=== PATIENT | male | born 1940 | race African-American/Black ===

== ENCOUNTER 2017-04-29 11:53 | Inpatient (IN) | payer OTHER, MEDICARE ==
[~2017-04-29] VITALS: Ht 185.4 cm; Wt 68.9 kg
[~2017-04-29 11:53] MED LIST: CENTTAB9 PO; METF500 PO; NAME10TA PO; OMEP20TA39 PO; PHEN100 PO; ZOCO40TA PO
[2017-04-29 11:57] VITALS: BP 143/84; PULSE 114; RESP 12; O2SAT 97
--- NOTE | 2017-04-29 12:07 | PD ---
Physical Exam Time Seen by Provider: 12:05 Narrative Pt here for evaluation following a trip and fall that occurred this morning. Unwitnessed. found him on the floor lying on his back. Pt has been having more slurred speech, ataxic gait, frequent urination, and difficulty swallowing for the last two days. History of diabetes, dementia, HTN Data Data Last Documented VS Vital Signs Date Time Temp Pulse Resp B/P (MAP) Pulse Ox O2 Delivery O2 Flow Rate FiO2 04/29/17 12:56 97.8 114 18 145/85 (105) 98 Room Air Orders Orders Ct Brain W/O Iv Contrast(Rout) (04/29/17 ) Complete Blood Count With Diff (04/29/17 12:07) Basic Metabolic Panel (Bmp) (04/29/17 12:07) Electrocardiogram (04/29/17 ) Urinalysis - C+S If Indicated (04/29/17 12:07) Blood Culture (04/29/17 12:07) Chest, Pa & Lat (04/29/17 ) Troponin I (04/29/17 12:35) Ckmb (Isoenzyme) Profile (04/29/17 12:35) Lactic Acid Sepsis Protocol (04/29/17 12:47) Hepatic Functional Panel (04/29/17 12:47) Cath For Specimen (04/29/17 12:47) C Diff Toxin Pcr (04/29/17 12:47) Blood Culture (04/29/17 12:47) Sodium Chlor 0.9% 1000 Ml Inj (Ns 1000 M (04/29/17 12:51) Labs Laboratory Tests Test 04/29/17 12:48 MDM Medical Record Reviewed: Yes Supervised Visit with ELDON: No Condition: Stable Alva Connell Apr 29, 2017 12:07
--- NOTE | 2017-04-29 12:47 | RADRPT ---
EXAM DATE/TIME: 04/29/2017 12:34 [facility] COMPARISON: No previous studies available for comparison. INDICATIONS : Short of breath. MEDICAL HISTORY : son states that he sees a drSean for his heart., dementia SURGICAL HISTORY : None. ENCOUNTER: Initial ACUITY: 1 day PAIN SCORE: Non-responsive. LOCATION: Bilateral chest FINDINGS: PA and lateral views of the chest demonstrate the lungs to be symmetrically aerated without evidence of mass, infiltrate or effusion. Left hemidiaphragm is elevated. Aorta is mildly tortuous. Osseous s tructures are intact. CONCLUSION: 1. No acute findings. Elevated left hemidiaphragm. Augustine Kelly MD on April 29, 2017 at 12:44 Board Certified Radiologist. This report was verified electronically.
[2017-04-29] MEDS ORDERED: SODIUM CHLOR 0.9% 1000 ML INJ 1,000 ML IV SCH ×3 (12:51→18:00)
[2017-04-29] MEDS ORDERED: CENTCHW3 PO (12:54)
[2017-04-29] MEDS ORDERED: GLIP10TA6 PO (12:54)
[2017-04-29] MEDS ORDERED: MEMA1TAB2 PO (12:54)
[2017-04-29] MEDS ORDERED: ZOCO40TA PO (12:54)
[2017-04-29] MEDS ORDERED: DILA100C PO (12:54)
[2017-04-29] MEDS ORDERED: OXYB5TAB PO (12:54)
[2017-04-29] MEDS ORDERED: OMEP20TA PO (12:54)
[2017-04-29 12:56] VITALS: BP 145/85; PULSE 114; RESP 18; TEMP 97.8; O2SAT 98
[2017-04-29 13:11] LABS: BLOOD, URINE TRACE (NEG); GLUCOSE,URINE 1000 mg/dL (NEG); KETONE, URINE 40 mg/dL (NEG); NITRITE,URINE NEG (NEG); URINE COLOR LIGHT-YELLOW (YELLW/STRAW)
--- NOTE | 2017-04-29 13:20 | PD ---
HPI Chief Complaint: Altered Mental Status Time Seen by Provider: 12:34 Travel History International Travel<30 days: No Contact w/Intl Traveler<30days: No Traveled to known affect area: No History of Present Illness HPI 76-year-old male that presents to the ED for evaluation of altered mental status and weakness. Patient has a chronic history of dementia and per family patient has developed weakness with past couple days. He is not eating or drinking as much. She complains of swallowing issues. He has had no fevers chills or sweats but today he did have a fall that was not witnessed. Per family his been more unsteady on his feet for the past couple of days. She denies any pain. Per family she was not able to get himself back up but with assistance. No blood thinner use but he does have a history of surgery to his brain secondary to hematoma on the brain. Has no allergies to medication. Per family he's been urinating and having more bowel movements than normal. No liquidy but normal. No fevers chills or sweats. No pain. Follow was not witnessed and was the one that found him on the floor on his back. Possible head injury but no lacerations noted. Patient denies any pain and does not appear to be in any distress. Able to move all extremities with no pain. History is limited from the patient secondary to his severe dementia. PFSH Past Medical History Alzheimer's Disease: Yes Arthritis: No Asthma: No Autoimmune Disease: No Blood Disorders: No Anxiety: Yes Depression: No Heart Rhythm Problems: No Cancer: No Cardiac Catheterization: Yes Cardiovascular Problems: Yes High Cholesterol: No Chemotherapy: No Chest Pain: Yes Congestive Heart Failure: No COPD: No Cerebrovascular Accident: No Coronary Artery Disease: Yes Dementia: Yes Diabetes: Yes Patient Takes Glucophage: No Diminished Hearing: No Endocrine: Yes (DIABETES 2) Gastrointestinal Disorders: Yes (GERD) GERD: Yes Genitourinary: No Hepatitis: No Hiatal Hernia: No Hypertension: Yes Immune Disorder: No Kidney Stones: No Medical other: Yes Musculoskeletal: No Neurologic: Yes (SDH, SEIZURES, ENCEPAHLOPATHY) Psychiatric: Yes Reproductive: No Respiratory: No Immunizations Current: Yes Migraines: No Myocardial Infarction: No Radiation Therapy: No Renal Failure: No Seizures: No Sickle Cell Disease: No Sleep Apnea: No Thyroid Disease: No Ulcer: No Tetanus Vaccination: < 5 Years Influenza Vaccination: Yes PNEUMOCCOCAL Vaccine (Year): 2 Past Surgical History Abdominal Surgery: No AICD: No Arteriovenous Shunt: No Cardiac Surgery: No Ear Surgery: No Endocrine Surgery: No Eye Surgery: No Genitourinary Surgery: No Gynecologic Surgery: No Insulin Pump: No Joint Replacement: No Neurologic Surgery: Yes (BIALATERAL CRANIOTOMY) Oral Surgery: No Pacemaker: No Thoracic Surgery: No Other Surgery: Yes Family History Family Breast Cancer: No Family Hypercholesterolemia: Yes Social History Alcohol Use: No Tobacco Use: No Substance Use: No Allergies-Medications (Allergen,Severity, Reaction): Coded Allergies: No Known Allergies (Verified , 09/23/15) Reported Meds & Prescriptions Reported Meds & Active Scripts Active Reported Centrum Silver (Multiple Vitamins W/ Minerals) 400 Mcg-250 Mcg Chw 1 Tab PO DAILY Zocor (Simvastatin) 40 Mg Tab 40 Mg PO HS Memantine 10 Mg Tab 10 Mg PO BID Omeprazole 20 Mg Tab 20 Mg PO DAILY Dilantin (Phenytoin Extended) 100 Mg Cap 100 Mg PO BID Review of Systems ROS Limitations: Poor Historian Except as stated in HPI: all other systems reviewed are Neg Physical Exam Exam Limitations: Poor Historian Narrative GENERAL: SKIN: Warm and dry. HEAD: Atraumatic. Normocephalic. EYES: Pupils equal and round. No scleral icterus. No injection or drainage. ENT: No nasal bleeding or discharge. Mucous membranes pink and moist. Tongue is midline. No uvula deviation. NECK: Trachea midline. No JVD. CARDIOVASCULAR: Regular rate and rhythm. No murmurs, S3, S4. RESPIRATORY: No accessory muscle use. Clear to auscultation. Breath sounds equal bilaterally. GASTROINTESTINAL: Abdomen soft, non-tender, nondistended. Hepatic and splenic margins not palpable. MUSCULOSKELETAL: Extremities without clubbing, cyanosis, or edema. No obvious deformities. Full range of motion of the upper and lower extremities bilaterally. 2+ pulses bilaterally. No lumbar, thoracic, cervical spine tenderness to palpation. NEUROLOGICAL: Awake and alert. No obvious cranial nerve deficits. Motor grossly within normal limits. Five out of 5 muscle strength in the arms and legs. Normal speech. PSYCHIATRIC: Demented mood and affect; insight and judgment minimal. Data Data Last Documented VS Vital Signs Date Time Temp Pulse Resp B/P (MAP) Pulse Ox O2 Delivery O2 Flow Rate FiO2 04/29/17 14:15 97.8 98 16 145/77 (99) 99 Room Air Orders Orders Ct Brain W/O Iv Contrast(Rout) (04/29/17 ) Complete Blood Count With Diff (04/29/17 12:07) Basic Metabolic Panel (Bmp) (04/29/17 12:07) Electrocardiogram (04/29/17 ) Urinalysis - C+S If Indicated (04/29/17 12:07) Blood Culture (04/29/17 12:07) Chest, Pa & Lat (04/29/17 ) Lactic Acid Sepsis Protocol (04/29/17 12:47) Hepatic Functional Panel (04/29/17 12:47) Cath For Specimen (04/29/17 12:47) C Diff Toxin Pcr (04/29/17 12:47) Blood Culture (04/29/17 12:47) Sodium Chlor 0.9% 1000 Ml Inj (Ns 1000 M (04/29/17 12:51) Ct Cerv Spine W/O Contrast (04/29/17 ) Ckmb (Isoenzyme) Profile (04/29/17 13:01) Troponin I (04/29/17 13:01) CKMB (04/29/17 13:01) CKMB% (04/29/17 13:01) Sodium Chlor 0.9% 1000 Ml Inj (Ns 1000 M (04/29/17 13:58) Insulin Human Regular Inj (Novolin R Inj (04/29/17 14:30) Admit To Inpatient (04/29/17 ) Vital Signs (Adult) ATUL.Q4H (04/29/17 14:42) Activity Bed Rest (04/29/17 14:42) Diet Npo (04/29/17 Dinner) Inpatient Certification (04/29/17 ) Admit Order (Ed Use Only) (04/29/17 14:44) Labs Laboratory Tests Test 04/29/17 12:48 04/29/17 13:00 04/29/17 13:01 Urine Color LIGHT-YELLOW Urine Turbidity CLEAR Urine pH 5.0 Urine Specific Hatch 1.030 Urine Protein NEG mg/dL Urine Glucose (UA) 1000 mg/dL Urine Ketones 40 mg/dL Urine Occult Blood TRACE Urine Nitrite NEG Urine Bilirubin NEG Urine Urobilinogen LESS THAN 2.0 MG/DL Urine Leukocyte Esterase NEG Urine RBC 1 /hpf Urine WBC 1 /hpf Microscopic Urinalysis Comment CULT NOT INDICATED Lactic Acid Level 2.7 mmol/L White Blood Count 13.7 TH/MM3 Red Blood Count 5.22 MIL/MM3 Hemoglobin 15.6 GM/DL Hematocrit 47.9 % Mean Corpuscular Volume 91.8 FL Mean Corpuscular Hemoglobin 29.9 PG Mean Corpuscular Hemoglobin Concent 32.6 % Red Cell Distribution Width 14.8 % Platelet Count 307 TH/MM3 Mean Platelet Volume 8.4 FL Neutrophils (%) (Auto) 78.7 % Lymphocytes (%) (Auto) 12.4 % Monocytes (%) (Auto) 8.4 % Eosinophils (%) (Auto) 0.2 % Basophils (%) (Auto) 0.3 % Neutrophils # (Auto) 10.8 TH/MM3 Lymphocytes # (Auto) 1.7 TH/MM3 Monocytes # (Auto) 1.2 TH/MM3 Eosinophils # (Auto) 0.0 TH/MM3 Basophils # (Auto) 0.0 TH/MM3 CBC Comment DIFF FINAL Differential Comment Blood Urea Nitrogen 22 MG/DL Creatinine 1.80 MG/DL Random Glucose 667 MG/DL Calcium Level 10.0 MG/DL Sodium Level 136 MEQ/L Potassium Level 5.8 MEQ/L Chloride Level 97 MEQ/L Carbon Dioxide Level 28.9 MEQ/L Anion Gap 10 MEQ/L Estimat Glomerular Filtration Rate 45 ML/MIN Total Bilirubin 0.4 MG/DL Direct Bilirubin 0.1 MG/DL Indirect Bilirubin 0.3 MG/DL Aspartate Amino Transf (AST/SGOT) 18 U/L Alanine Aminotransferase (ALT/SGPT) 23 U/L Alkaline Phosphatase 187 U/L Total Creatine Kinase 219 U/L Creatine Kinase MB 0.6 NG/ML Troponin I LESS THAN 0.02 NG/ML Total Protein 9.5 GM/DL Albumin 4.1 GM/DL MDM Medical Decision Making Medical Screen Exam Complete: Yes Emergency Medical Condition: Yes Medical Record Reviewed: Yes Interpretation(s) Last Impressions Chest X-Ray 04/29/17 0000 Signed Impressions: Service Date/Time: Saturday, April 29, 2017 12:34 - CONCLUSION: 1. No acute findings. Elevated left hemidiaphragm. Augustine Kelly MD CT head shows subtle abnormality per radiologist he does not believe is new blood products but cannot state otherwise CBC & BMP Diagram 10/2/17 13:01 Calcium Level 10.0 troponin and CKMB negative EKG shows sinus tachycardia with no sign of ischemia or arrhythmia. UA negative other than for glucose CT cervical spine negative Differential Diagnosis Kidney injury versus dehydration versus altered mental status versus UTI versus GI bleed versus anemia versus head injury versus confusion versus worsening dementia Narrative Course 76-year-old male that presents to the ED for evaluation of worsening confusion with head injury. Patient was properly examined and was found to have signs and symptoms consistent with appears to be altered mental status and dementia. Labs and imaging were ordered. Patient was given a bolus of fluid. Labs and imaging showed elevated blood sugar, lactic acidosis and under markedly to the CT of the head. Case discussed with my attending who recommends consult the neurosurgeon. Spoke with Dr. Mendoza for neurosurgery who states that this is improved from prior and he does not believe anything needs to be done for this. Case discussed with Dr. Kirk who agrees to admission. Diagnosis Primary Impression: Altered mental status Qualified Codes: R41.82 - Altered mental status, unspecified Additional Impressions: Head injury Qualified Codes: S09.90XA - Unspecified injury of head, initial encounter Hyperglycemia Elevated lactic acid level Admitting Information Admitting Physician Requests: Observation Condition: Stable Salvador Spann Apr 29, 2017 13:20
[2017-04-29 13:21] LABS: COMMENT (UR) CULT NOT INDICATED; CULTURE IF INDICATED CULT NOT INDICATED
[2017-04-29 13:25] LABS: AUTOMATED NEUTROPHIL # 10.8 TH/MM3 (1.8-7.7); BASOPHIL % 0.3 % (0.0-2.0); EOSINOPHIL % 0.2 % (0.0-4.0); HEMATOCRIT 47.9 % (39.0-51.0); HEMO FLAGS DIFF FINAL; LYMPH % 12.4 % (9.0-44.0); LYMPHOCYTE # 1.7 TH/MM3 (1.0-4.8); MEAN CELL VOLUME 91.8 FL (80.0-100.0); MEAN CORPUSCULAR HEMOGLOBIN 29.9 PG (27.0-34.0); MEAN CORPUSCULAR HGB CONC 32.6 % (32.0-36.0); MONO % 8.4 % (0.0-8.0); NEUT % 78.7 % (16.0-70.0); PLATELET COUNT 307 TH/MM3 (150-450); RED BLOOD COUNT 5.22 MIL/MM3 (4.50-5.90); RED CELL DISTRIBUTION WIDTH 14.8 % (11.6-17.2); WHITE BLOOD COUNT 13.7 TH/MM3 (4.0-11.0)
[2017-04-29 13:53] LABS: ALKALINE PHOSPHATASE 187 U/L (45-117); ALT (GPT) 23 U/L (12-78); AST (GOT) 18 U/L (15-37); INDIRECT BILIRUBIN 0.3 MG/DL (0.0-0.8); TOTAL BILIRUBIN ADULT 0.4 MG/DL (0.2-1.0)
[2017-04-29 13:55] LABS: CREATINE KINASE 219 U/L (39-308)
[2017-04-29 13:57] LABS: BICARBONATE 28.9 MEQ/L (21.0-32.0); POTASSIUM 5.8 MEQ/L (3.5-5.1)
--- NOTE | 2017-04-29 14:00 | RADRPT ---
EXAM DATE/TIME: 04/29/2017 13:36 [facility] COMPARISON: CT BRAIN W/O CONTRAST, December 06, 2014, 13:42. INDICATIONS : Altered mental status; fall. RADIATION DOSE: 48.48 CTDIvol (mGy) MEDICAL HISTORY : Cardiovascular disease. Hypertension. Dementia. SURGICAL HISTORY : Craniotomy. ENCOUNTER: Initial ACUITY: 1 day PAIN SCALE: Non-responsive LOCATION: cranial TECHNIQUE: Multiple contiguous axial images were obtained of the head. Using automated exposure control and adj ustment of the mA and/or kV according to patient size, radiation dose was kept as low as reasonably a chievable to obtain optimal diagnostic quality images. DICOM format image data is available electro nically for review and comparison. FINDINGS: CEREBRUM: Redemonstration of small bilateral hygromas with slight increased linear density noted in the right f rontal collection near the vertex. The ventricles are normal for age. No evidence of midline shift, mass lesion, hemorrhage or acute infarction. No new intra-or extra-axial fluid collections are seen. POSTERIOR FOSSA: The cerebellum and brainstem are intact. The 4th ventricle is midline. The cerebellopontine angle i s unremarkable. EXTRACRANIAL: The visualized portion of the orbits is intact. SKULL: Postsurgical changes of bilateral frontoparietal craniotomies. The calvaria is intact. No evidence o f skull fracture. CONCLUSION: 1. Small stable bilateral hygromas with subtle increased linear density noted in the right frontal co llection near the vertex. Although unlikely given configuration and appearance, a small focal acute r egion of blood products cannot be entirely excluded given lack of more recent prior exams. 2. Otherwise, no acute intracranial abnormality. Kenny Walker MD on April 29, 2017 at 13:54 Board Certified Radiologist. This report was verified electronically.
--- NOTE | 2017-04-29 14:00 | RADRPT ---
EXAM DATE/TIME: 04/29/2017 13:36 [facility] COMPARISON: No previous studies available for comparison. INDICATIONS : Altered mental status; fall. RADIATION DOSE: 38.99 CTDIvol (mGy) MEDICAL HISTORY : Cardiovascular disease. Dementia. Seizures. SURGICAL HISTORY : Craniotomy. ENCOUNTER: Initial ACUITY: 1 day PAIN SCALE: Non-responsive LOCATION: cranial TECHNIQUE: Volumetric scanning of the cervical spine was performed. Multiplanar reconstructions in the sagittal, coronal and oblique axial planes were performed. Using automated exposure control and adjustment o f the mA and/or kV according to patient size, radiation dose was kept as low as reasonably achievable to obtain optimal diagnostic quality images. DICOM format image data is available electronically f or review and comparison. FINDINGS: The alignment is normal. There is no evidence of cervical spine fracture. No bony canal or foraminal stenosis is identified. There is no evidence of paraspinal hematoma. CONCLUSION: No acute bony injury in the cervical spine. Baldev Urbano MD on April 29, 2017 at 13:55 Board Certified Radiologist. This report was verified electronically.
[2017-04-29 14:10] LABS: CKMB 0.6 NG/ML (0.5-3.6)
[2017-04-29 14:15] VITALS: BP 145/77; PULSE 98; RESP 16; TEMP 97.8; O2SAT 99
[2017-04-29] MEDS ORDERED: INSULIN HUMAN REGULAR 1,000 UNITS/10 ML VIAL SQ ONE (14:30)
[2017-04-29 15:19] LABS: LACTIC ACID GHOST NOT REPORTABLE
[2017-04-29 15:43] VITALS: BP 150/88; PULSE 92; RESP 17; TEMP 97.9; O2SAT 98
[2017-04-29] MEDS: ASPIRIN 81 MG CHEW TAB PO SCH (17:15)
[2017-04-29] MEDS ORDERED: NON-FORMULARY DRUG (Omeprazole 20 MG) PO SCH (17:30)
[2017-04-29 17:47] VITALS: BP 120/71; PULSE 92; RESP 17; TEMP 98; O2SAT 98
[2017-04-29] MEDS: ENOXAPARIN SODIUM 30 MG/0.3 ML SYRINGE SQ SCH (17:49)
--- NOTE | 2017-04-29 18:51 | HHI.HP ---
[facility] Manjit Jiménez MD Admission Diagnosis altered mental status, weakness, head injury Diagnoses: Chief Complaint: per family, getting weaker Travel History International Travel<30 Days: No Contact w/Intl Traveler <30 Da: No Traveled to Known Affected Are: No History of Present Illness 76-year-old black male being admitted for possible CVA. Patient was in his usual state of health until about 3 days ago when his family began noticing slurred speech. They state that his speech was slurred but still somewhat understandable and that the patient was speaking at his baseline cognitive level (has dementia). This was associated with new onset dysphagia with meals notably the patient coughs with taking even sepsis of water. Subsequently he has decreased by mouth intake. Associated with decreased generalized activity, generalized weakness, increased urinary urgency and subsequent incontinence. They deny any fevers, chills, nausea, vomiting or significant change in bowel movements. No facial droop or focal weakness has been observed with the extremities. No unilaterally unsteady gait, just unsteady overall. They state that he has no change in his baseline confusion. Family states that he still has been consistently administered his home medications with no skipping. In the ER the patient was found to be hyperglycemic in the 600s, hyperkalemic at 5.8 w/ a normal anion gap at 10, with an acute kidney injury as well. He received IV boluses as well as insulin. Review of Systems Except as stated in HPI: all other systems reviewed are Neg Past Family Social History Past Medical History HYL, DM, dementia Past Surgical History daytno hole evacuation for subdural hematoma 2/2 traumatic injury Allergies: Coded Allergies: No Known Allergies (Verified , 09/23/15) Family History Hypertension Social History Lives with his , is demented, son works in the hospital cardiac catheterization lab. They collectively help administer his medications to him on a daily basis. Physical Exam Vital Signs Vital Signs Date Time Temp Pulse Resp B/P (MAP) Pulse Ox O2 Delivery O2 Flow Rate FiO2 04/29/17 18:00 04/29/17 17:47 98.0 92 17 120/71 (87) 98 Room Air 04/29/17 15:43 97.9 92 17 150/88 (108) 98 Room Air 04/29/17 14:15 97.8 98 16 145/77 (99) 99 Room Air 04/29/17 13:00 102 17 98 Room Air 04/29/17 12:56 97.8 114 18 145/85 (105) 98 Room Air 04/29/17 11:57 114 12 143/84 (103) 97 Physical Exam GENERAL: This is a well-nourished, well-developed patient, in no apparent distress. SKIN: No rashes, ecchymoses or lesions. Cool and dry. HEAD: Atraumatic. Normocephalic. No temporal or scalp tenderness. EYES: Pupils equal round and reactive. Extraocular motions intact. No scleral icterus. No injection or drainage. ENT: Nose without bleeding, purulent drainage or septal hematoma. Throat without erythema, tonsillar hypertrophy or exudate. Unable to visualize uvula due to Mallampati class IV NECK: Trachea midline. No JVD or lymphadenopathy. Supple, nontender, no meningeal signs. CARDIOVASCULAR: Regular rate and rhythm without murmurs, gallops, or rubs. RESPIRATORY: Clear to auscultation. Breath sounds equal bilaterally. No wheezes , rales, or rhonchi. GASTROINTESTINAL: Abdomen soft, non-tender, nondistended. MUSCULOSKELETAL: Extremities without clubbing, cyanosis, or edema. No joint tenderness, effusion, or edema noted. No calf tenderness. Negative Homans sign bilaterally. NEUROLOGICAL: Awake and alert. Cranial nerves II through XII intact. Motor and sensory grossly within normal limits. Five out of 5 muscle strength in all muscle groups. Normal speech. Negative Romberg's, patellar reflexes diminished bilaterally. Intact finger to nose to finger bilaterally. Laboratory Laboratory Tests Test 04/29/17 12:48 04/29/17 13:00 04/29/17 13:01 04/29/17 16:30 Urine Color LIGHT-YELLOW Urine Turbidity CLEAR Urine pH 5.0 Urine Specific [place] 1.030 Urine Protein NEG Urine Glucose (UA) 1000 Urine Ketones 40 Urine Occult Blood TRACE Urine Nitrite NEG Urine Bilirubin NEG Urine Urobilinogen LESS THAN 2.0 Urine Leukocyte Esterase NEG Urine RBC 1 Urine WBC 1 Microscopic Urinalysis Comment CULT NOT INDICATED Lactic Acid Level 2.7 2.2 White Blood Count 13.7 Red Blood Count 5.22 Hemoglobin 15.6 Hematocrit 47.9 Mean Corpuscular Volume 91.8 Mean Corpuscular Hemoglobin 29.9 Mean Corpuscular Hemoglobin Concent 32.6 Red Cell Distribution Width 14.8 Platelet Count 307 Mean Platelet Volume 8.4 Neutrophils (%) (Auto) 78.7 Lymphocytes (%) (Auto) 12.4 Monocytes (%) (Auto) 8.4 Eosinophils (%) (Auto) 0.2 Basophils (%) (Auto) 0.3 Neutrophils # (Auto) 10.8 Lymphocytes # (Auto) 1.7 Monocytes # (Auto) 1.2 Eosinophils # (Auto) 0.0 Basophils # (Auto) 0.0 CBC Comment DIFF FINAL Differential Comment Blood Urea Nitrogen 22 Creatinine 1.80 Random Glucose 667 Calcium Level 10.0 Sodium Level 136 Potassium Level 5.8 Chloride Level 97 Carbon Dioxide Level 28.9 Anion Gap 10 Estimat Glomerular Filtration Rate 45 Total Bilirubin 0.4 Direct Bilirubin 0.1 Indirect Bilirubin 0.3 Aspartate Amino Transf (AST/SGOT) 18 Alanine Aminotransferase (ALT/SGPT) 23 Alkaline Phosphatase 187 Total Creatine Kinase 219 Creatine Kinase MB 0.6 Troponin I LESS THAN 0.02 Total Protein 9.5 Albumin 4.1 Date/Time Source Procedure Growth Status 04/29/17 13:01 Blood Peripheral Aerobic Blood Culture Pending Received 04/29/17 13:01 Blood Peripheral Anaerobic Blood Culture Pending Received Result Diagram: 04/29/17 1301 04/29/17 1301 Imaging Last Impressions Head CT 04/29/17 0000 Signed Impressions: Service Date/Time: Saturday, April 29, 2017 13:36 - CONCLUSION: 1. Small stable bilateral hygromas with subtle increased linear density noted in the right frontal collection near the vertex. Although unlikely given configuration and appearance, a small focal acute region of blood products cannot be entirely excluded given lack of more recent prior exams. 2. Otherwise, no acute intracranial abnormality. Kenny Walker MD Chest X-Ray 04/29/17 0000 Signed Impressions: Service Date/Time: Saturday, April 29, 2017 12:34 - CONCLUSION: 1. No acute findings. Elevated left hemidiaphragm. Augustine Kelly MD Cervical Spine CT 04/29/17 0000 Signed Impressions: Service Date/Time: Saturday, April 29, 2017 13:36 - CONCLUSION: No acute bony injury in the cervical spine. MD Rika Maldonado VTE Risk Assessment Caprini VTE Risk Assessment: Mod/High Risk (score >= 2) Caprini Risk Assessment Model Point Value = 1 Point Value = 2 Point Value = 3 Point Value = 5 Age 41-60 Minor surgery BMI > 25 kg/m2 Swollen legs Varicose veins or History of unexplained or recurrent spontaneous Oral contraceptives or hormone replacement Sepsis (< 1 month) Serious lung disease, including pneumonia (< 1 month) Abnormal pulmonary function Acute myocardial infarction Congestive heart failure (< 1 month) History of inflammatory bowel disease Medical patient at bed rest Age 61-74 Arthroscopic surgery Major open surgery (> 45 min) Laparoscopic surgery (> 45 min) Malignancy Confined to bed (> 72 hours) Immobilizing plaster cast Central venous access Age >= 75 History of VTE Family history of VTE Factor V Leiden Prothrombin [id number] Lupus anticoagulant Anticardiolipin antibodies Elevated serum homocysteine Heparin-induced thrombocytopenia Other congenital or acquired thrombophilia Stroke (< 1 month) Elective arthroplasty Hip, pelvis, or leg fracture Acute spinal cord injury (< 1 month) Prophylaxis Regimen Total Risk Factor Score Risk Level Prophylaxis Regimen 0-1 Low Early ambulation 2 Moderate Order ONE of the following: *Sequential Compression Device (SCD) *Heparin 5000 units SQ BID 3-4 Higher Order ONE of the following medications: *Heparin 5000 units SQ TID *Enoxaparin/Lovenox 40 mg SQ daily (WT < 150 kg, CrCl > 30 mL/min) *Enoxaparin/Lovenox 30 mg SQ daily (WT < 150 kg, CrCl > 10-29 mL/min) *Enoxaparin/Lovenox 30 mg SQ BID (WT < 150 kg, CrCl > 30 mL/min) AND/OR *Sequential Compression Device (SCD) 5 or more Highest Order ONE of the following medications: *Heparin 5000 units SQ TID (Preferred with Epidurals) *Enoxaparin/Lovenox 40 mg SQ daily (WT < 150 kg, CrCl > 30 mL/min) *Enoxaparin/Lovenox 30 mg SQ daily (WT < 150 kg, CrCl > 10-29 mL/min) *Enoxaparin/Lovenox 30 mg SQ BID (WT < 150 kg, CrCl > 30 mL/min) AND *Sequential Compression Device (SCD) Assessment and Plan Assessment and Plan 76-year-old lack male being admitted for dysphagia and possible CVA. The patient seems to have partially responded at least clinically with just the ER treatment in regards to his generalized weakness since he now has 5 out of 5 strength all throughout grossly. Dysphagia - Nothing by mouth until evaluated by speech - We'll workup for stroke starting with MRI head Possible CVA - Fall precautions - PT, OT, ST - MRI head, Echocardiogram and carotid ultrasound, I independently reviewed EKG which shows sinus rhythm to sinus tachycardia - ASA, lipitor - permissive HTN Chronic hygromas - D/w ER staff who contacted NSG, no further workup needed nor intervention anticipated Dehydration - Likely secondary to dysphagia - IV fluids Acute kidney injury - Secondary to dehydration, treated as above, trend BMP in a.m. Hyperkalemia - Likely secondary to dehydration and acute kidney injury combined, recheck in a.m., treated with IV fluids - possibly uncontrolled DM, A1c ordered, SS w/ accuchecks leukocytosis - likely stress induced, repeat in AM - BC's ordered from ER, anticipate neg since lack of fever per hx, f/u results Dementia - continue memantine hyperglycemia - suspect uncontrolled DM, ordering SS w/ accuchecks along w/ a1C lactic acidosis - repeat improving, likely 2/2 dehydration, no signs of infection, monitor clinically, no increased anion gap contributing Lovenox for DVT prophylaxis. Code Status full code Physician Certification 2 Midnight Certification Type: Admission for Inpatient Services Order for Inpatient Services The services are ordered in accordance with Medicare regulations or non- Medicare payer requirements, as applicable. In the case of services not specified as inpatient-only, they are appropriately provided as inpatient services in accordance with the 2-midnight benchmark. Estimated LOS (days): 2 2 days is the estimated time the patient will need to remain in the hospital, assuming treatment plan goals are met and no additional complications. Post-Hospital Plan: Not yet determined Dieter Mcintosh MD Apr 29, 2017 18:51
[2017-04-29] MEDS ORDERED: GLUCAGON 1 MG/ML VIAL OTHER PRN (19:30)
[2017-04-29] MEDS ORDERED: DEXTROSE 50% IN WATER 50 ML VIAL(D50) IV PUSH PRN (19:30)
[2017-04-29 19:57] LABS: HDL CHOLESTEROL 51.4 MG/DL (40.0-60.0); LDL CHOLESTEROL 72 MG/DL (0-99)
[2017-04-29] MEDS: PHENYTOIN INJ 100 MG/2 ML VIAL IV SCH (20:18)
[2017-04-29] MEDS: MEMANTINE HCL 10 MG TAB PO SCH (20:18)
[2017-04-29] MEDS: PHENYTOIN SODIUM 100 MG CAP PO SCH (20:18)
[2017-04-29] MEDS ORDERED: ENALAPRILAT 1.25 MG/ML VIAL IV PUSH PRN (20:45)
[2017-04-29] MEDS ORDERED: INSULIN NovoLIN REGULAR SUPPLEMENTAL SCALE SQ SCH (21:00)
[2017-04-29] MEDS ORDERED: NON-FORMULARY DRUG (Oxybutynin ER 24 HR 5 MG) PO SCH (21:00)
[2017-04-29] MEDS: SODIUM CHLOR 0.9% 1000 ML INJ 1,000 ML IV SCH (21:55)
[2017-04-29 22:00] VITALS: BP 130/74; PULSE 85; RESP 20; TEMP 97.7; O2SAT 96
[2017-04-29 22:24] LABS: HEMOGLOBIN A1a 1.3 %; HEMOGLOBIN A1b 3.8 %; HEMOGLOBIN Ao 70.7 %; HEMOGLOBIN P3 7.3 %
--- NOTE | 2017-04-29 22:38 | RADRPT ---
EXAM DATE/TIME: 04/29/2017 21:37 [facility] COMPARISON: CT BRAIN W/O CONTRAST, December 06, 2014, 13:42. CT BRAIN W/O CONTRAST, April 29, 2017, 13:36. INDICATIONS : CVA. MEDICAL HISTORY : Alzheimer's. Diabetes mellitus type 2. Gastroesophageal reflux disease. Cardiovascular disease. Seizu res. SURGICAL HISTORY : Craniotomy. ENCOUNTER: Subsequent ACUITY: 1 day PAIN SCORE: 3/10 LOCATION: TECHNIQUE: Multiplanar, multisequence MRI of the brain was performed without contrast. FINDINGS: CEREBRUM: The ventricles are widened. There is mild widening of the sulci. There are bilateral anterior frontal region extra-axial fluid collections being more prominent right than the left. The right fluid colle ction measures 0.9 cm in AP dimension. The left anterior fluid collection measures 0.5 cm. These have been present on prior CT examinations. There are focal areas of signal abnormality on the T2 and fla ir images in the medial left frontal lobe likely related to old contusions or other prior insult. No evidence of midline shift, mass lesion, hemorrhage or acute infarction. The pituitary gland and sup rasellar cistern are normal in configuration. WHITE MATTER: No significant signal abnormalities are seen in the white matter. POSTERIOR FOSSA: The cerebellum and brainstem are intact. The 4th ventricle is midline. The cerebellopontine angle is unremarkable. The cerebellar tonsils are normal in position. DIFFUSION IMAGING: No focal areas of restricted diffusion are seen. No evidence of acute infarction. EXTRACRANIAL: The visualized portions of the orbits and paranasal sinuses are unremarkable. There appears to be pos toperative change in the lateral frontal bones bilaterally and in the frontal and parietal scalp chely ons. CONCLUSION: 1. Mild lateral frontal extra-axial fluid collections being greater on the right than the left likely representing hygromas or old hematomas. These been present since at least 2014. 2. Mild ventricular and sulcal dilatation likely related to some atrophy. 3. Suspected old insults at the medial left frontal lobe. Baldev Mckeon MD on April 29, 2017 at 22:29 Board Certified Radiologist. This report was verified electronically.
[2017-04-30] VITALS (9 sets, daily range): BP systolic 131–151; BP diastolic 70–80; PULSE 82–101; RESP 18–20; TEMP 97.7–98.5; O2SAT 95–100
[2017-04-30] MEDS: SODIUM CHLOR 0.9% 1000 ML INJ 1,000 ML IV SCH ×3 (04:18→18:00)
[2017-04-30 07:53] LABS: AUTOMATED NEUTROPHIL # 8.6 TH/MM3 (1.8-7.7); BASOPHIL % 0.4 % (0.0-2.0); EOSINOPHIL # 0.1 TH/MM3 (0-0.4); EOSINOPHIL % 1.3 % (0.0-4.0); HEMO FLAGS DIFF FINAL; LYMPHOCYTE # 1.7 TH/MM3 (1.0-4.8); MEAN CELL VOLUME 90.3 FL (80.0-100.0); MEAN CORPUSCULAR HEMOGLOBIN 29.8 PG (27.0-34.0); MONO % 6.7 % (0.0-8.0); NEUT % 76.6 % (16.0-70.0); PLATELET COUNT 239 TH/MM3 (150-450); RED BLOOD COUNT 4.65 MIL/MM3 (4.50-5.90); RED CELL DISTRIBUTION WIDTH 14.3 % (11.6-17.2); WHITE BLOOD COUNT 11.3 TH/MM3 (4.0-11.0)
[2017-04-30 08:24] LABS: BICARBONATE 23.9 MEQ/L (21.0-32.0)
[2017-04-30 08:30] LABS: HDL CHOLESTEROL 43.2 MG/DL (40.0-60.0)
--- NOTE | 2017-04-30 08:33 | EKG ---
Date Performed: 04/29/2017 Time Performed: 12:42:54 PTAGE: 76 years EKG: SINUS TACHYCARDIA WITH SHORT FL INTERVAL MARKED LEFT AXIS DEVIATION INCOMPLETE RIGHT BUNDLE BRANCH BLOCK ABNORMAL ECG PREVIOUS TRACING : 11/08/2014 10.13 When compared to prior EKG, patient is now tachycardic. DOCTOR: Hemalatha Marie Interpretating Date/Time 04/30/2017 08:32:58
[2017-04-30] MEDS ORDERED: TOLTERODINE TARTRATE 4 MG CAP LA PO SCH (09:00)
[2017-04-30] MEDS ORDERED: MULTIPLE VITAMINS PO SCH (09:00)
[2017-04-30] MEDS ORDERED: MINERALS PO SCH (09:00)
[2017-04-30] MEDS ORDERED: INSULIN DETEMIR 100 UNITS/ML VIAL SQ SCH (09:15)
[2017-04-30] MEDS: PHENYTOIN SODIUM 100 MG CAP PO SCH ×2 (09:22→20:27)
[2017-04-30] MEDS: ASPIRIN 81 MG CHEW TAB PO SCH (09:24)
[2017-04-30] MEDS: MEMANTINE HCL 10 MG TAB PO SCH ×2 (09:25→20:26)
[2017-04-30] MEDS: PANTOPRAZOLE SOD 20 MG DELAYED RELEASE TAB PO SCH (09:26)
[2017-04-30] MEDS: MULTIVITAMINS/MINERALS THERAPEUTIC TAB PO SCH (09:27)
[2017-04-30] MEDS: PHENYTOIN INJ 100 MG/2 ML VIAL IV SCH ×2 (09:28→20:27)
[2017-04-30] MEDS: INSULIN NovoLIN REGULAR SUPPLEMENTAL SCALE SQ SCH ×4 (09:39→20:27)
--- NOTE | 2017-04-30 11:21 | RADRPT ---
EXAM DATE/TIME: 04/30/2017 10:45 [facility] COMPARISON: No previous studies available for comparison. INDICATIONS : Transient ischemic attack. MEDICAL HISTORY : Gastroesophageal reflux disease. Seizures. Encephalopathy. Dementia. Alzheimer's disease. coronar y artery disease. diabetes. c-diff. SURGICAL HISTORY : Craniotomy. Cardiac catheterization. ENCOUNTER: Initial ACUITY: 1 day PAIN SCORE: 0/10 LOCATION: Bilateral neck PEAK SYSTOLIC VELOCITIES (cm/sec): ICA/CCA RATIO: Right: 0.7 Left: 0.4 ICA: Right: 77 Left: 60 CCA: Right: 103 Left: 135 ECA: Right: 79 Left: 90 VERTEBRAL: Right: 66 antegrade Left: 107 antegrade Elevated flow velocities and ICA/CCA ratios have been found to correlate with increased degrees of vessel stenosis, calculated as percentage of diameter relative to a normal segment of distal ICA/CCA FINDINGS: RIGHT CAROTID: No significant stenosis is visualized. The waveforms are within normal limits. LEFT CAROTID: No significant stenosis is visualized. The waveforms are within normal limits. VERTEBRAL ARTERIES: Antegrade flow is seen in both vertebral arteries. MISCELLANEOUS: None. CONCLUSION: 1. No evidence of hemodynamically significant lesion. Brody Hernandez MD on April 30, 2017 at 11:19 Board Certified Radiologist. This report was verified electronically.
[2017-04-30] MEDS: ENOXAPARIN SODIUM 30 MG/0.3 ML SYRINGE SQ SCH (17:30)
--- NOTE | 2017-04-30 17:54 | HHI.PR ---
Subjective Remarks Nursing reports no acute setbacks since last night. Nursing does relate that speech therapy does have indeed a modified diet based upon their assessment, nectar thickened liquids. Family says that patient looks more energetic today than yesterday. MRI this morning shows no stroke acutely Objective Vital Signs Date Time Temp Pulse Resp B/P (MAP) Pulse Ox O2 Delivery O2 Flow Rate FiO2 04/30/17 16:00 98.1 86 20 133/80 (97) 97 04/30/17 12:00 98.1 101 20 131/70 (90) 95 04/30/17 08:00 98.5 98 20 151/80 (103) 98 04/30/17 06:02 98.2 88 20 141/76 (97) 98 04/30/17 01:36 97.7 82 18 131/75 (93) 97 04/30/17 01:15 98 04/29/17 22:00 97.7 85 20 130/74 (92) 96 04/29/17 18:00 I/O 04/29/17 04/29/17 04/29/17 04/30/17 04/30/17 04/30/17 07:00 15:00 23:00 07:00 15:00 23:00 Intake Total 1000 ml 1000 ml 840 ml Balance 1000 ml 1000 ml 840 ml IV Total 1000 ml 1000 ml 840 ml # Voids 3 2 # Bowel Movements 1 Result Diagram: 04/30/17 0654 04/30/17 0654 Imaging Last Impressions Carotid Artery Ultrasound 04/30/17 0000 Signed Impressions: Service Date/Time: Sunday, April 30, 2017 10:45 - CONCLUSION: 1. No evidence of hemodynamically significant lesion. Brody Hernandez MD Head CT 04/29/17 0000 Signed Impressions: Service Date/Time: Saturday, April 29, 2017 13:36 - CONCLUSION: 1. Small stable bilateral hygromas with subtle increased linear density noted in the right frontal collection near the vertex. Although unlikely given configuration and appearance, a small focal acute region of blood products cannot be entirely excluded given lack of more recent prior exams. 2. Otherwise, no acute intracranial abnormality. Kenny Walker MD Chest X-Ray 04/29/17 0000 Signed Impressions: Service Date/Time: Saturday, April 29, 2017 12:34 - CONCLUSION: 1. No acute findings. Elevated left hemidiaphragm. Augustine Kelly MD Cervical Spine CT 04/29/17 0000 Signed Impressions: Service Date/Time: Saturday, April 29, 2017 13:36 - CONCLUSION: No acute bony injury in the cervical spine. Baldev Urbano MD Brain MRI 04/29/17 0000 Signed Impressions: Service Date/Time: Saturday, April 29, 2017 21:37 - CONCLUSION: 1. Mild lateral frontal extra-axial fluid collections being greater on the right than the left likely representing hygromas or old hematomas. These been present since at least 2014. 2. Mild ventricular and sulcal dilatation likely related to some atrophy. 3. Suspected old insults at the medial left frontal lobe. Baldev Mckeon MD Objective Remarks Sitting up in chair Attentive, gives me a right-sided handshake Heart rate regular rate and rhythm, no murmurs 5 out of 5 proximal upper extremity strength bilaterally and lower extremities bilaterally A/P Assessment and Plan 76-year-old black male being admitted for dysphagia and possible CVA. Dysphagia - Stroke workup negative yet speech deficits are persistent, will continue with speech therapy and modified diet - Could be due to neuropathy secondary to uncontrolled diabetes - tx dm aggressively as mentioned below Possible CVA - Fall precautions - PT, OT - no rehabilitation recommended further. Speech therapy is recommending further rehabilitation. - MRI head and carotid ultrasounds are negative, echocardiogram results are pending - ASA, lipitor - Permissive hypertension phase complete -Chronic hygromas Dehydration - Was likely due to uncontrolled hyperglycemia with substantial polyuria - resolved Acute kidney injury - resolved Hyperkalemia - resolved hypernatremia - likely 2/2 NS replenishment, reducing IVF rate, trend in AM Uncontrolled DM -newly found elevated A1c greater than 10% -Having to increase from low-dose to medium dose to high-dose sliding scale, trial of Levemir 5 units this morning showed subpar improvement and basal sugars , increasing to 10 units twice a day starting tonight - Ordering diabetic and dietitian education leukocytosis -Resolving Dementia - continue memantine Lovenox for DVT prophylaxis. Dieter Mcintosh MD Apr 30, 2017 17:54
--- NOTE | 2017-04-30 18:05 | ECHRPT ---
Indication: CVA/TIA CONCLUSIONS Very technically difficult study There was limited left ventricular wall motion assessment due to poor endocardial visualization. Grossly normal ejection fraction of the left ventricle based on limited imaging. Doppler parameters are consistent with impaired left ventricular relaxtion (grade 1 diastolic dysfun ction). BP: / HR: Rhythm: Sinus MEASUREMENTS (Male / Female) Normal Values Technical Quality:Very technically difficult study DOPPLER AV Peak Velocity 120.0 cm/s AV Peak Gradient 5.8 mmHg AV Mean Gradient 2.0 mmHg AV Velocity Time Integral 15.9 cm LVOT Peak Velocity 92.5 cm/s LVOT Peak Gradient 3.4 mmHg LVOT Velocity Time Integral 15.1 cm Mitral E Point Velocity 72.5 cm/s Mitral A Point Velocity 86.3 cm/s Mitral E to A Ratio 0.8 LV E' Lateral Velocity 3.5 cm/s Mitral E to LV E' Lateral Ratio 20.7 LV E' Septal Velocity 6.3 cm/s Mitral E to LV E' Septal Ratio 11.4 FINDINGS LEFT VENTRICLE There was limited left ventricular wall motion assessment due to poor endocardial visualization. Grossly normal ejection fraction of the left ventricle based on limited imaging. Doppler parameters are consistent with impaired left ventricular relaxtion (grade 1 diastolic dysfun ction). RIGHT VENTRICLE The right ventricle was not well visualized. LEFT ATRIUM The left atrium was not well visualized. RIGHT ATRIUM The right atrium is not well visualized. ATRIAL SEPTUM The interatrial septum not well visualized. AORTA The aortic root and proximal ascending aorta are not well visualized. MITRAL VALVE The mitral valve is not well visualized. AORTIC VALVE The aortic valve is not well visualized. TRICUSPID VALVE The tricuspid valve is not well visualized. PULMONARY VALVE The pulmonary valve is not well visualized. Balta Nelson DO (Electronically Signed) Final Date:30 April 2017 18:04
[2017-04-30] MEDS: INSULIN DETEMIR 100 UNITS/ML VIAL SQ SCH (20:27)
[2017-05-01] VITALS (10 sets, daily range): BP systolic 116–147; BP diastolic 72–90; PULSE 60–106; RESP 20; TEMP 97.4–99.5; O2SAT 96–98
[2017-05-01 07:18] LABS: BICARBONATE 25.3 MEQ/L (21.0-32.0); POTASSIUM 3.7 MEQ/L (3.5-5.1)
[2017-05-01] MEDS: INSULIN NovoLIN REGULAR SUPPLEMENTAL SCALE SQ SCH ×4 (08:00→23:23)
[2017-05-01] MEDS: PHENYTOIN INJ 100 MG/2 ML VIAL IV SCH ×2 (08:59→21:00)
[2017-05-01] MEDS: MEMANTINE HCL 10 MG TAB PO SCH ×2 (08:59→23:21)
[2017-05-01] MEDS: PHENYTOIN SODIUM 100 MG CAP PO SCH ×2 (09:00→23:21)
[2017-05-01] MEDS: PANTOPRAZOLE SOD 20 MG DELAYED RELEASE TAB PO SCH (09:00)
[2017-05-01] MEDS: MULTIVITAMINS/MINERALS THERAPEUTIC TAB PO SCH (09:00)
[2017-05-01] MEDS: INSULIN DETEMIR 100 UNITS/ML VIAL SQ SCH ×2 (09:00→23:22)
[2017-05-01] MEDS ORDERED: INFLUENZA VIRUS VACCINE (QUADRIVALENT) 0.5 ML SYR IM ONE (10:00)
--- NOTE | 2017-05-01 15:59 | HHI.PR ---
Subjective Remarks Nursing reported that the patient was made nothing by mouth yesterday evening since he had some coughing spells with his afternoon/evening meal. Discussed with speech pathologist who reevaluated the patient today, he is good again for nectar thickened liquids. Family states no deterioration otherwise since last night. Objective Vital Signs Date Time Temp Pulse Resp B/P (MAP) Pulse Ox O2 Delivery O2 Flow Rate FiO2 05/01/17 12:15 98.3 97 20 118/81 (93) 97 05/01/17 08:26 98 05/01/17 08:00 97.8 92 20 147/80 (102) 97 05/01/17 06:19 97.7 88 20 140/78 (98) 98 Automatic Cuff 05/01/17 00:49 98.7 92 20 125/79 (94) 96 04/30/17 23:24 88 04/30/17 20:42 98.2 88 20 133/77 (95) 100 04/30/17 17:55 97 21 04/30/17 16:00 98.1 86 20 133/80 (97) 97 I/O 04/30/17 04/30/17 04/30/17 05/01/17 05/01/17 05/01/17 07:00 15:00 23:00 07:00 15:00 23:00 Intake Total 840 ml 1000 ml 240 ml Balance 840 ml 1000 ml 240 ml Intake Oral 240 ml IV Total 840 ml 1000 ml # Voids 3 2 # Bowel Movements 1 Result Diagram: 04/30/17 0654 05/01/17 0550 Imaging Laboratory Tests Test 05/01/17 05:50 Blood Urea Nitrogen 10 MG/DL (7-18) Creatinine 0.95 MG/DL (0.60-1.30) Random Glucose 160 MG/DL (74-106) Calcium Level 9.2 MG/DL (8.5-10.1) Sodium Level 147 MEQ/L (136-145) Potassium Level 3.7 MEQ/L (3.5-5.1) Chloride Level 111 MEQ/L (98-107) Carbon Dioxide Level 25.3 MEQ/L (21.0-32.0) Anion Gap 11 MEQ/L (5-15) Estimat Glomerular Filtration Rate 94 ML/MIN (>89) Objective Remarks Sitting up in chair Attentive, gives me a right-sided handshake Heart rate regular rate and rhythm, no murmurs No facial droop noted, no slurred speech A/P Assessment and Plan 76-year-old black male being admitted for dysphagia and possible CVA. Dysphagia - Stroke workup negative yet speech deficits are persistent, will continue with speech therapy and modified diet - Could be due to neuropathy secondary to uncontrolled diabetes - tx dm aggressively as mentioned below - Discussed case with GI mid-level as well, recommended modified barium swallow for now to see if he is silently aspirating. , Continue speech therapy otherwise Possible CVA - unlikely at this point, no PT or OT recommended upon discharge - MRI head and carotid ultrasounds are negative, echocardiogram do not comment on any intramural thrombus but do note a diastolic dysfunction, difficult study otherwise. hypernatremia - Slightly improved since yesterday - Drastic rise in sodium level was noted to his patient's admission, likely an inevitable result of the replenishment IV fluids that the patient needed, fluids have been adjusted accordingly to a lower rate, and son were extensively counseled on the risk of developing CPM, I explained that the patient will unlikely developed this but the possibility was indeed there and that if he was to deteriorate and his mental status any further to bring him back to the hospital (assuming he is discharged before any deterioration) - they verbalized understanding. Uncontrolled DM -newly found elevated A1c greater than 10% - Finely have achieved control with high-dose sliding scale and Levemir 10 units twice a da - Pending diabetic and dietitian education Dementia - continue memantine Lovenox for DVT prophylaxis. Dieter Mcintosh MD May 01, 2017 15:59
[2017-05-01] MEDS: ENOXAPARIN SODIUM 30 MG/0.3 ML SYRINGE SQ SCH (17:54)
[2017-05-01] MEDS: SODIUM CHLOR 0.9% 1000 ML INJ 1,000 ML IV SCH (17:54)
[2017-05-02] VITALS (9 sets, daily range): BP systolic 92–150; BP diastolic 57–77; PULSE 88–111; RESP 16–20; TEMP 97–99.2; O2SAT 93–99
[2017-05-02] MEDS: INSULIN NovoLIN REGULAR SUPPLEMENTAL SCALE SQ SCH ×4 (08:00→22:09)
[2017-05-02] MEDS: PHENYTOIN INJ 100 MG/2 ML VIAL IV SCH ×2 (09:00→21:00)
[2017-05-02] MEDS: PHENYTOIN SODIUM 100 MG CAP PO SCH ×2 (09:47→22:05)
[2017-05-02] MEDS: MEMANTINE HCL 10 MG TAB PO SCH ×2 (09:47→22:05)
[2017-05-02] MEDS: INSULIN DETEMIR 100 UNITS/ML VIAL SQ SCH ×2 (09:47→22:06)
[2017-05-02] MEDS: MULTIVITAMINS/MINERALS THERAPEUTIC TAB PO SCH (09:48)
[2017-05-02] MEDS: PANTOPRAZOLE SOD 20 MG DELAYED RELEASE TAB PO SCH (09:48)
--- NOTE | 2017-05-02 10:24 | HHI.PR ---
Subjective Remarks The patient had his barium swallow study done earlier. He said he feels fine. He had no acute complaints. His is at the bedside and her questions were answered. Objective Vitals Vital Signs Date Time Temp Pulse Resp B/P (MAP) Pulse Ox O2 Delivery O2 Flow Rate FiO2 05/02/17 08:35 98.4 92 20 114/72 (86) 97 05/02/17 06:05 97.0 99 20 150/77 (101) 99 05/02/17 01:47 98.7 92 20 128/75 (92) 96 05/01/17 21:00 106 05/01/17 20:39 97.5 90 20 127/77 (94) 98 05/01/17 18:04 97 21 05/01/17 16:00 99.5 101 20 133/72 (92) 97 05/01/17 12:15 98.3 97 20 118/81 (93) 97 I/O 05/01/17 05/01/17 05/01/17 05/02/17 05/02/17 05/02/17 06:59 14:59 22:59 06:59 14:59 22:59 Intake Total 240 ml 720 ml 219 ml 129 ml Output Total 1 ml Balance 240 ml 720 ml 219 ml -1 ml 129 ml Intake Oral 240 ml 720 ml IV Total 219 ml 129 ml Output Urine Total 1 ml # Voids 3 # Bowel Movements 0 Result Diagram: 04/30/17 0654 05/01/17 0550 Imaging Last Impressions Modified Barium Swallow 05/02/17 0000 Signed Impressions: Service Date/Time: April 00:00 - CONCLUSION: Modified barium swallow. Johnson Nicholson MD Carotid Artery Ultrasound 04/30/17 0000 Signed Impressions: Service Date/Time: Sunday, April 30, 2017 10:45 - CONCLUSION: 1. No evidence of hemodynamically significant lesion. Brody Hernandez MD Head CT 04/29/17 0000 Signed Impressions: Service Date/Time: Saturday, April 29, 2017 13:36 - CONCLUSION: 1. Small stable bilateral hygromas with subtle increased linear density noted in the right frontal collection near the vertex. Although unlikely given configuration and appearance, a small focal acute region of blood products cannot be entirely excluded given lack of more recent prior exams. 2. Otherwise, no acute intracranial abnormality. Kenny Walker MD Chest X-Ray 04/29/17 Signed Impressions: Service Date/Time: Saturday, April 29, 2017 12:34 - CONCLUSION: 1. No acute findings. Elevated left hemidiaphragm. Augustine Kelly MD Cervical Spine CT 04/29/17 Signed Impressions: Service Date/Time: Saturday, April 29, 2017 13:36 - CONCLUSION: No acute bony injury in the cervical spine. Baldev Urbano MD Brain MRI 04/29/17 Signed Impressions: Service Date/Time: Saturday, April 29, 2017 21:37 - CONCLUSION: 1. Mild lateral frontal extra-axial fluid collections being greater on the right than the left likely representing hygromas or old hematomas. These been present since at least 2014. 2. Mild ventricular and sulcal dilatation likely related to some atrophy. 3. Suspected old insults at the medial left frontal lobe. Baldev Mckeon MD Objective Remarks GENERAL: Resting comfortably in bed. SKIN: Warm and dry. HEAD: Atraumatic. Normocephalic. EYES: Pupils equal and round. No scleral icterus. No injection or drainage. ENT: No nasal bleeding or discharge. Mucous membranes pink and moist. Tongue is midline. No uvula deviation. NECK: Trachea midline. No JVD. CARDIOVASCULAR: Regular rate and rhythm. No murmurs, S3, S4. RESPIRATORY: No accessory muscle use. Clear to auscultation. Breath sounds equal bilaterally. GASTROINTESTINAL: Abdomen soft, non-tender, nondistended. Hepatic and splenic margins not palpable. MUSCULOSKELETAL: Extremities without clubbing, cyanosis, or edema. No obvious deformities. Full range of motion of the upper and lower extremities bilaterally. 2+ pulses bilaterally. No lumbar, thoracic, cervical spine tenderness to palpation. NEUROLOGICAL: Awake and alert. No obvious cranial nerve deficits. Motor grossly within normal limits. Five out of 5 muscle strength in the arms and legs. Normal speech. PSYCHIATRIC: Appropriate mood and affect. Medications and IVs Current Medications Medications (Trade) Dose Ordered Sig/Rylie Route Start Time Stop Time Status Last Admin (Lovenox Inj) 30 mg Q24H SQ 04/29/17 18:00 05/01/17 17:54 (Namenda) 10 mg BID PO 04/29/17 21:00 05/02/17 09:47 (Dilantin) 100 mg BID PO 04/29/17 21:00 05/02/17 09:47 (Dilantin Inj) 100 mg Q12HR IV 04/29/17 21:00 05/01/17 08:59 (Theragran M Tab) 1 tab DAILY PO 04/30/17 09:00 05/02/17 09:48 (Protonix) 20 mg DAILY PO 04/30/17 09:00 05/02/17 09:48 (D50w (Vial) Inj) 50 ml UNSCH PRN IV PUSH 04/29/17 19:30 (Glucagon Inj) 1 mg UNSCH PRN OTHER 04/29/17 19:30 (Vasotec Inj) 1.25 mg Q6H PRN IV PUSH 04/29/17 20:45 Sodium Chloride 1,000 ml @ 20 mls/hr Q24H IV 04/30/17 18:00 04/30/17 18:00 (Levemir Inj) 10 units Q12HR SQ 04/30/17 21:00 05/02/17 09:47 (NovoLIN R SUPPLEMENTAL SCALE) 1 ACHS SLIDING SCALE SQ 04/30/17 21:00 05/02/17 12:00 A/P Assessment and Plan Dysphagia Stroke workup negative yet speech deficits are persistent. - will continue with speech therapy and modified diet - modified barium read pending. Possible CVA Unlikely at this point, no PT or OT recommended upon discharge. MRI head and carotid ultrasounds are negative, echocardiogram does not comment on any intramural thrombus but does note a diastolic dysfunction, difficult study otherwise. - neurology eval if needed. Awaiting Barium swallow reading. Hypernatremia Improved. - change fluids to 1/2 NS and monitor. Uncontrolled DM Elevated A1c greater than 10%. - Finely have achieved control with high-dose sliding scale and Levemir 10 units twice a day. - Pending diabetic and dietitian education. Dementia Stable. - continue memantine. - consider neuro eval. Lovenox for DVT prophylaxis. Discharge Planning Likely d/c with C in 1-2 days Johnson Quintanilla DO May 02, 2017 10:24
--- NOTE | 2017-05-02 10:56 | RADRPT ---
EXAM DATE/TIME: 05/02/2017 00:00 [facility] COMPARISON: BA SWALLOW W/SPEECH PATHOLOGY, November 29, 2014, 0:00. INDICATIONS : Dysphagia. FLUORO TIME: 1.7 minutes IMAGE COUNT: 0 CONTRAST: Dose as prescribed by speech pathologist. MEDICAL HISTORY : Gastroesophageal reflux disease. Seizures. Encephalopathy. Dementia. Alzheimer's disease. coronary ar hank disease. diabetes. c-diff. SURGICAL HISTORY : Craniotomy. Cardiac catheterization. ENCOUNTER: Subsequent ACUITY: 1 day PAIN SCORE: 0/10 LOCATION: Esophagus. FINDINGS: A modified barium swallow was performed with speech pathology. Patient was given a variety of liquids to swallow. There was no evidence of aspiration. For a full detailed report, see report by the speech pathologist. CONCLUSION: Modified barium swallow. Johnson Nicholson MD on May 02, 2017 at 10:54 Board Certified Radiologist. This report was verified electronically.
[2017-05-02] MEDS: SODIUM CHLOR 0.45% 1000 ML INJ 1,000 ML IV SCH (15:57)
[2017-05-02] MEDS: ENOXAPARIN SODIUM 30 MG/0.3 ML SYRINGE SQ SCH (18:14)
[2017-05-03 01:00] VITALS: BP 109/58; PULSE 89; RESP 16; TEMP 98.3; O2SAT 96
[2017-05-03] MEDS: SODIUM CHLOR 0.45% 1000 ML INJ 1,000 ML IV SCH (03:20)
[2017-05-03 06:03] VITALS: BP 113/68; PULSE 94; RESP 18; TEMP 98.6; O2SAT 95
[2017-05-03] MEDS: INSULIN NovoLIN REGULAR SUPPLEMENTAL SCALE SQ SCH ×4 (08:00→21:00)
[2017-05-03 08:09] LABS: HEMATOCRIT 40.4 % (39.0-51.0); MEAN CELL VOLUME 90.1 FL (80.0-100.0); MEAN CORPUSCULAR HEMOGLOBIN 29.7 PG (27.0-34.0); MEAN CORPUSCULAR HGB CONC 32.9 % (32.0-36.0); PLATELET COUNT 197 TH/MM3 (150-450); RED BLOOD COUNT 4.49 MIL/MM3 (4.50-5.90); RED CELL DISTRIBUTION WIDTH 14.1 % (11.6-17.2); REVIEW FLAG FINAL; WHITE BLOOD COUNT 8.7 TH/MM3 (4.0-11.0)
[2017-05-03 08:38] LABS: BICARBONATE 27.7 MEQ/L (21.0-32.0); MAGNESIUM 1.7 MG/DL (1.5-2.5); POTASSIUM 3.4 MEQ/L (3.5-5.1)
[2017-05-03] MEDS: MULTIVITAMINS/MINERALS THERAPEUTIC TAB PO SCH (08:45)
[2017-05-03] MEDS: PHENYTOIN SODIUM 100 MG CAP PO SCH ×2 (08:45→22:06)
[2017-05-03] MEDS: PANTOPRAZOLE SOD 20 MG DELAYED RELEASE TAB PO SCH (08:45)
[2017-05-03] MEDS: MEMANTINE HCL 10 MG TAB PO SCH ×2 (08:45→22:05)
[2017-05-03] MEDS: INSULIN DETEMIR 100 UNITS/ML VIAL SQ SCH ×2 (08:48→22:03)
[2017-05-03] MEDS: PHENYTOIN INJ 100 MG/2 ML VIAL IV SCH ×2 (08:59→21:00)
[2017-05-03 09:03] VITALS: BP 114/64; PULSE 93; RESP 20; TEMP 98.6; O2SAT 91
[2017-05-03 12:39] VITALS: BP 108/69; PULSE 97; RESP 20; TEMP 99.4; O2SAT 96
[2017-05-03] MEDS ORDERED: POTASSIUM CHLORIDE 25 MEQ EFFERVESCENT TAB PO ONE (14:45)
--- NOTE | 2017-05-03 14:47 | PD.CONS ---
History of Present Illness Service Neurology Consult Requested By medical Reason for Consult dementia, ataxia Primary Care Physician Manjit Jiménez MD History of Present Illness 76-year-old black male being admitted for hyperglycemia. hx of underlying dementia and dysphagia. had a mri brain scan performed which showed no acute stroke but bilateral hygromas. had bilateral dayton hole for sdh drainage 10/2014 seen by nsx for ventriculomegaly. they did not feel a vp research shunt would help him based on his gait pattern. pt denies any castillo, neck pain, focal weakness. no tremors. Review of Systems Except as stated in HPI: all other systems reviewed are Neg Past Family Social History Past Medical History HYL, DM, dementia Past Surgical History dayton hole evacuation for subdural hematoma 2/2 traumatic injury Allergies: Coded Allergies: No Known Allergies (Verified , 09/23/15) Family History Hypertension Social History denies any tob/etoh use Review of Systems All other ROS: ROS reviewed as documented in chart Past Family Social History Allergies: Coded Allergies: No Known Allergies (Verified , 09/23/15) Active Ordered Medications Current Medications Medications (Trade) Dose Ordered Sig/Rylie Route Start Time Stop Time Status Last Admin (Lovenox Inj) 30 mg Q24H SQ 04/29/17 18:00 05/02/17 18:14 (Namenda) 10 mg BID PO 04/29/17 21:00 05/03/17 08:45 (Dilantin) 100 mg BID PO 04/29/17 21:00 05/03/17 08:45 (Dilantin Inj) 100 mg Q12HR IV 04/29/17 21:00 05/01/17 08:59 (Theragran M Tab) 1 tab DAILY PO 04/30/17 09:00 05/03/17 08:45 (Protonix) 20 mg DAILY PO 04/30/17 09:00 05/03/17 08:45 (D50w (Vial) Inj) 50 ml UNSCH PRN IV PUSH 04/29/17 19:30 (Glucagon Inj) 1 mg UNSCH PRN OTHER 04/29/17 19:30 (Vasotec Inj) 1.25 mg Q6H PRN IV PUSH 04/29/17 20:45 (Levemir Inj) 10 units Q12HR SQ 04/30/17 21:00 05/03/17 08:48 (NovoLIN R SUPPLEMENTAL SCALE) 1 ACHS SLIDING SCALE SQ 04/30/17 21:00 05/03/17 12:00 Sodium Chloride 1,000 ml @ 75 mls/hr [id number] IV 05/02/17 14:00 05/03/17 16:39 05/02/17 15:57 Exam I&O / VS Vital Signs Date Time Temp Pulse Resp B/P (MAP) Pulse Ox O2 Delivery O2 Flow Rate FiO2 05/03/17 12:39 99.4 97 20 108/69 (82) 96 05/03/17 09:03 98.6 93 20 114/64 (81) 91 05/03/17 06:03 98.6 94 18 113/68 (83) 95 05/03/17 01:00 98.3 89 16 109/58 (75) 96 05/02/17 20:30 111 05/02/17 20:18 99.2 102 16 92/57 (69) 95 05/02/17 17:57 93 05/02/17 16:56 98.6 92 20 117/68 (84) 93 General: No acute distress Eye: EOMI Respiratory: Lungs CTA, Non-labored respirations, BS equal Cardiology: Normal rate, Regular Rhythm Musculoskeletal: Swelling Neurologic: Alert Psychiatric: Cooperative, Appropriate mood & affect Exam Comments ox 1-2, not to date, poor historian, 0/3 after 5 mins, mild ideomotor/ constructional apraxia, eomi, ou 2.5-2mm, face sym, no focal weakness, no tremors, minimal increased tone in ue, no clonus, planterflexor Review/Management Diagnosis/Plan: (1) Alzheimer's dementia ICD Codes: F02.80 - Dementia in oth diseases classd elswhr w/o behavrl disturb ; G30.9 - Dementia in Alzheimer's disease Status: Chronic Plan: chronic dementia; probable alz type +/- concussive. also, possibility of nph but this has been evaluated already by nsx on namenda on dilantin for ? 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 follow exam (2) Hypertension ICD Codes: I10 - Hypertension Status: Chronic (3) Hydrocephalus, communicating ICD Codes: G91.0 - Communicating hydrocephalus Status: Chronic (4) Impaired gait ICD Codes: R26.9 - Impaired gait Status: Chronic (5) S/P craniotomy ICD Codes: Z98.89 - Status post craniotomy Status: Chronic Problem Qualifiers (1) Hypertension: Qualified Codes: I10 - Essential (primary) hypertension Toño Davis MD May 03, 2017 14:47
[2017-05-03] MEDS ORDERED: PILL SPLITTER OTHER PRN (16:00)
--- NOTE | 2017-05-03 16:16 | HHI.PR ---
Subjective Remarks The patient was resting in bed comfortably. He wanted to go home. He had no acute complaints. Objective Vitals Vital Signs Date Time Temp Pulse Resp B/P (MAP) Pulse Ox O2 Delivery O2 Flow Rate FiO2 05/03/17 12:39 99.4 97 20 108/69 (82) 96 05/03/17 09:03 98.6 93 20 114/64 (81) 91 05/03/17 06:03 98.6 94 18 113/68 (83) 95 05/03/17 01:00 98.3 89 16 109/58 (75) 96 05/02/17 20:30 111 05/02/17 20:18 99.2 102 16 92/57 (69) 95 05/02/17 17:57 93 05/02/17 16:56 98.6 92 20 117/68 (84) 93 I/O 05/02/17 05/02/17 05/02/17 05/03/17 05/03/17 05/03/17 07:00 15:00 23:00 07:00 15:00 23:00 Intake Total 129 ml 1060 ml Output Total 1 ml Balance -1 ml 129 ml 1060 ml Intake Oral 660 ml IV Total 129 ml 400 ml Output Urine Total 1 ml # Voids 2 # Bowel Movements 1 Result Diagram: 05/03/17 0711 05/03/17710 Imaging Last Impressions Modified Barium Swallow 05/02/17 0000 Signed Impressions: Service Date/Time: April 00:00 - CONCLUSION: Modified barium swallow. Johnson Nicholson MD Carotid Artery Ultrasound 04/30/17 Signed Impressions: Service Date/Time: Sunday, April 30, 2017 10:45 - CONCLUSION: 1. No evidence of hemodynamically significant lesion. Brody Hernandez MD Head CT 04/29/17 0000 Signed Impressions: Service Date/Time: Saturday, April 29, 2017 13:36 - CONCLUSION: 1. Small stable bilateral hygromas with subtle increased linear density noted in the right frontal collection near the vertex. Although unlikely given configuration and appearance, a small focal acute region of blood products cannot be entirely excluded given lack of more recent prior exams. 2. Otherwise, no acute intracranial abnormality. Kenny Walker MD Chest X-Ray 10/2/17 0000 Signed Impressions: Service Date/Time: Saturday, April 29, 2017 12:34 - CONCLUSION: 1. No acute findings. Elevated left hemidiaphragm. Augustine Kelly MD Cervical Spine CT 04/29/17 Signed Impressions: Service Date/Time: Saturday, April 29, 2017 13:36 - CONCLUSION: No acute bony injury in the cervical spine. Baldev Urbano MD Brain MRI 04/29/17 Signed Impressions: Service Date/Time: Saturday, April 29, 2017 21:37 - CONCLUSION: 1. Mild lateral frontal extra-axial fluid collections being greater on the right than the left likely representing hygromas or old hematomas. These been present since at least 2014. 2. Mild ventricular and sulcal dilatation likely related to some atrophy. 3. Suspected old insults at the medial left frontal lobe. Baldev Mckeon MD Objective Remarks GENERAL: Resting comfortably in bed. SKIN: Warm and dry. HEAD: Atraumatic. Normocephalic. EYES: Pupils equal and round. No scleral icterus. No injection or drainage. ENT: No nasal bleeding or discharge. Mucous membranes pink and moist. Tongue is midline. No uvula deviation. NECK: Trachea midline. No JVD. CARDIOVASCULAR: Regular rate and rhythm. No murmurs, S3, S4. RESPIRATORY: No accessory muscle use. Clear to auscultation. Breath sounds equal bilaterally. GASTROINTESTINAL: Abdomen soft, non-tender, nondistended. Hepatic and splenic margins not palpable. MUSCULOSKELETAL: Extremities without clubbing, cyanosis, or edema. No obvious deformities. Full range of motion of the upper and lower extremities bilaterally. 2+ pulses bilaterally. No lumbar, thoracic, cervical spine tenderness to palpation. NEUROLOGICAL: Awake and alert. No obvious cranial nerve deficits. Motor grossly within normal limits. Five out of 5 muscle strength in the arms and legs. Normal speech. PSYCHIATRIC: Appropriate mood and affect. Medications and IVs Current Medications Medications (Trade) Dose Ordered Sig/Rylie Route Start Time Stop Time Status Last Admin (Lovenox Inj) 30 mg Q24H SQ 04/29/17 18:00 05/02/17 18:14 (Namenda) 10 mg BID PO 04/29/17 21:00 05/03/17 08:45 (Dilantin) 100 mg BID PO 04/29/17 21:00 05/03/17 08:45 (Dilantin Inj) 100 mg Q12HR IV 04/29/17 21:00 05/01/17 08:59 (Theragran M Tab) 1 tab DAILY PO 04/30/17 09:00 05/03/17 08:45 (Protonix) 20 mg DAILY PO 04/30/17 09:00 05/03/17 08:45 (D50w (Vial) Inj) 50 ml UNSCH PRN IV PUSH 04/29/17 19:30 (Glucagon Inj) 1 mg UNSCH PRN OTHER 04/29/17 19:30 (Vasotec Inj) 1.25 mg Q6H PRN IV PUSH 04/29/17 20:45 (Levemir Inj) 10 units Q12HR SQ 04/30/17 21:00 05/03/17 08:48 (NovoLIN R SUPPLEMENTAL SCALE) 1 ACHS SLIDING SCALE SQ 04/30/17 21:00 05/03/17 12:00 Sodium Chloride 1,000 ml @ 75 mls/hr [id number] IV 05/02/17 14:00 05/03/17 16:39 05/02/17 15:57 (Aricept) 2.5 mg DAILY PO 05/04/17 09:00 (Pill Splitter) 1 ea UNSCH PRN OTHER 05/03/17 16:00 A/P Assessment and Plan Dysphagia/ Possible NPH/ Dementia MRI head and carotid ultrasounds are negative. Echocardiogram does not comment on any intramural thrombus but does note a diastolic dysfunction, difficult study otherwise. Continues to have difficulty swallowing. Modified barium study noted. Neurology consult appreciated. - will continue with speech therapy and modified diet. - EEG pending. - continue Namenda and donepezil. Hypernatremia Improved. - changed fluids to 1/2 NS. Will d/c. Uncontrolled DM Elevated A1c greater than 10%. - Finely have achieved control with high-dose sliding scale and Levemir 10 units twice a day. - consulted finishing area supervisor and dietitian. - anticipate d/c on home meds and Levemir 10 units daily. Lovenox for DVT prophylaxis. Discharge Planning Anticipate d/c home in AM. Johnson Quintanilla DO May 03, 2017 16:16
[2017-05-03] MEDS: ENOXAPARIN SODIUM 30 MG/0.3 ML SYRINGE SQ SCH (17:27)
[2017-05-03 17:29] VITALS: BP 160/76; PULSE 66; RESP 20; TEMP 99; O2SAT 98
--- NOTE | 2017-05-03 17:56 | MG ---
cc: NYDIA ALFARO MD Lab No: [id number] Date: 05/03/2017 Age:76 Sex: M Race: DATE OF : 1940 HISTORY: 76-year-old history of seizure, confusion, Alzheimer's dementia previous craniotomy for subdural hematoma, rule. FINDINGS: 5-7 Hz posterior rhythm 20 to 50 microvolts, frontal, low amplitude beta rhythms. Frequent eye movement, <<1:03>> also chronic chewing artifact. Frequent chewing artifact throughout the recording more prominent on the right compared to the left side. Reduced driving with photic stimulation. Single lead EKG showing sinus rhythm. INTERPRETATION Very mild encephalopathy with moderate myogenic / chewing artifact. Clinical correlation Nydia Alfaro MD MG/james /4:56 PM /5:38 PM
[2017-05-03 20:34] VITALS: BP 107/67; PULSE 97; RESP 18; TEMP 98.3; O2SAT 96
[2017-05-04 00:18] VITALS: BP 107/67; PULSE 92; RESP 18; TEMP 98.4; O2SAT 96
[2017-05-04 04:00] VITALS: BP 122/62; PULSE 83; RESP 18; TEMP 98.2; O2SAT 100
[2017-05-04 07:04] LABS: BICARBONATE 28.4 MEQ/L (21.0-32.0); MAGNESIUM 1.7 MG/DL (1.5-2.5); POTASSIUM 3.8 MEQ/L (3.5-5.1)
[2017-05-04 07:29] VITALS: PULSE 125
[2017-05-04 08:00] VITALS: BP 106/61; PULSE 84; RESP 16; TEMP 98.6; O2SAT 95
[2017-05-04] MEDS: INSULIN NovoLIN REGULAR SUPPLEMENTAL SCALE SQ SCH (08:00)
[2017-05-04] MEDS ORDERED: NOVOLOGP2 SQ (08:59)
[2017-05-04] MEDS ORDERED: INSU1INJ5 SQ (08:59)
[2017-05-04] MEDS ORDERED: ARIC5TAB2 PO (08:59)
[2017-05-04] MEDS: PHENYTOIN INJ 100 MG/2 ML VIAL IV SCH (09:00)
[2017-05-04] MEDS: INSULIN DETEMIR 100 UNITS/ML VIAL SQ SCH (09:00)
[2017-05-04] MEDS ORDERED: DONEPEZIL HCL 5 MG TAB PO SCH (09:00)
--- NOTE | 2017-05-04 09:00 | HHI.DCPOC ---
Discharge Care Plan Diagnosis: (1) Impaired gait (2) Impaired mobility and activities of daily living (3) DM (diabetes mellitus) (4) Dysphagia (5) Alzheimer's dementia Goals to Promote Your Health * To prevent worsening of your condition and complications * To maintain your health at the optimal level Directions to Meet Your Goals Take your medications as prescribed Follow your dietary instruction Follow activity as directed Keep your appointments as scheduled Take your immunizations and boosters as scheduled If your symptoms worsen call your PCP, if no PCP go to Urgent Care Center or Emergency Room Smoking is Dangerous to Your Health. Avoid second hand smoke Call the 24-hour hour crisis hotline for domestic abuse at Johnson Quintanilla DO May 04, 2017 09:00
--- NOTE | 2017-05-04 09:01 | HHI.FF ---
Face to Face Verification Diagnosis: (1) Impaired gait (2) Impaired mobility and activities of daily living (3) DM (diabetes mellitus) (4) Dysphagia (5) Alzheimer's dementia Speech Therapy Order: To Improve: Speech and communication skills, Cognitive skills, Swallowing Home Health Nursing Order: Medical education Signs/symptoms of disease process Diabetic education Medication education-adverse effect Nursing assessment with vital signs I have seen patient Rene Kurtz on 05/04/17. My clinical findings support the need for the requested home health care services because: Ltd mobility - disease progression Deconditioned w/ increased weakness Med compliance is questionable Limited ability to care for self Need for psychosocial assistance Impaired cognition/judgement High risk of falls Injectable med education/admin I certify that my clinical findings support that this patient is homebound because: Impaired cognitive ability/safety Unsteady gait/balance Unsafe to leave home unassisted Need for psychosocial assistance Johnson Quintanilla DO May 04, 2017 09:01
--- NOTE | 2017-05-04 09:10 | HHI.DS ---
Discharge Summary Admission Date Apr 29, 2017 at 14:44 Discharge Date: May 04, 2017 Admitting Diagnosis altered mental status, weakness, head injury (1) Impaired mobility and activities of daily living ICD Code: Z74.09 - Impaired mobility and activities of daily living Status: Acute (2) Impaired gait ICD Code: R26.9 - Impaired gait Status: Chronic (3) DM (diabetes mellitus) ICD Code: E11.9 - Diabetes mellitus Diagnosis: Principal Status: Chronic (4) Dysphagia ICD Code: R13.10 - Dysphagia Diagnosis: Principal Status: Acute (5) Alzheimer's dementia ICD Code: F02.80 - Dementia in oth diseases classd elswhr w/o behavrl disturb; G30.9 - Dementia in Alzheimer's disease Diagnosis: Principal Status: Chronic Procedures None Brief History - From Admission 76-year-old black male being admitted for possible CVA. Patient was in his usual state of health until about 3 days ago when his family began noticing slurred speech. They state that his speech was slurred but still somewhat understandable and that the patient was speaking at his baseline cognitive level (has dementia). This was associated with new onset dysphagia with meals notably the patient coughs with taking even sepsis of water. Subsequently he has decreased by mouth intake. Associated with decreased generalized activity, generalized weakness, increased urinary urgency and subsequent incontinence. They deny any fevers, chills, nausea, vomiting or significant change in bowel movements. No facial droop or focal weakness has been observed with the extremities. No unilaterally unsteady gait, just unsteady overall. They state that he has no change in his baseline confusion. Family states that he still has been consistently administered his home medications with no skipping. In the ER the patient was found to be hyperglycemic in the 600s, hyperkalemic at 5.8 w/ a normal anion gap at 10, with an acute kidney injury as well. He received IV boluses as well as insulin. CBC/BMP: 05/03/17 0711 05/04/17 0522 Significant Findings Laboratory Tests Test 05/03/17 07:11 05/03/17 18:55 05/04/17 05:22 Red Blood Count 4.49 MIL/MM3 (4.50-5.90) Random Glucose 125 MG/DL (74-106) 146 MG/DL (74-106) Calcium Level 7.9 MG/DL (8.5-10.1) 7.8 MG/DL (8.5-10.1) Potassium Level 3.4 MEQ/L (3.5-5.1) Erythrocyte Sedimentation Rate 28 mm/hr (0-20) Phenytoin (Dilantin) Level 5.3 MCG/ML (10.0-20.0) Imaging Last Impressions Modified Barium Swallow 05/02/17 Signed Impressions: Service Date/Time: April 00:00 - CONCLUSION: Modified barium swallow. Johnson Nicholson MD Carotid Artery Ultrasound 04/30/17 Signed Impressions: Service Date/Time: Sunday, April 30, 2017 10:45 - CONCLUSION: 1. No evidence of hemodynamically significant lesion. Brody Hernandez MD Head CT 04/29/17 Signed Impressions: Service Date/Time: Saturday, April 29, 2017 13:36 - CONCLUSION: 1. Small stable bilateral hygromas with subtle increased linear density noted in the right frontal collection near the vertex. Although unlikely given configuration and appearance, a small focal acute region of blood products cannot be entirely excluded given lack of more recent prior exams. 2. Otherwise, no acute intracranial abnormality. Kenny Walker MD Chest X-Ray 04/29/17 Signed Impressions: Service Date/Time: Saturday, April 29, 2017 12:34 - CONCLUSION: 1. No acute findings. Elevated left hemidiaphragm. Augustine Kelly MD Cervical Spine CT 04/29/17 Signed Impressions: Service Date/Time: Saturday, April 29, 2017 13:36 - CONCLUSION: No acute bony injury in the cervical spine. Baldev Urbano MD Brain MRI 04/29/17 Signed Impressions: Service Date/Time: Saturday, April 29, 2017 21:37 - CONCLUSION: 1. Mild lateral frontal extra-axial fluid collections being greater on the right than the left likely representing hygromas or old hematomas. These been present since at least 2014. 2. Mild ventricular and sulcal dilatation likely related to some atrophy. 3. Suspected old insults at the medial left frontal lobe. Bladev Mckeon MD PE at Discharge GENERAL: Resting comfortably in bed. SKIN: Warm and dry. HEAD: Atraumatic. Normocephalic. EYES: Pupils equal and round. No scleral icterus. No injection or drainage. ENT: No nasal bleeding or discharge. Mucous membranes pink and moist. Tongue is midline. No uvula deviation. NECK: Trachea midline. No JVD. CARDIOVASCULAR: Regular rate and rhythm. No murmurs, S3, S4. RESPIRATORY: No accessory muscle use. Clear to auscultation. Breath sounds equal bilaterally. GASTROINTESTINAL: Abdomen soft, non-tender, nondistended. Hepatic and splenic margins not palpable. MUSCULOSKELETAL: Extremities without clubbing, cyanosis, or edema. No obvious deformities. Full range of motion of the upper and lower extremities bilaterally. 2+ pulses bilaterally. No lumbar, thoracic, cervical spine tenderness to palpation. NEUROLOGICAL: Awake and alert. No obvious cranial nerve deficits. Motor grossly within normal limits. Five out of 5 muscle strength in the arms and legs. Normal speech. PSYCHIATRIC: Appropriate mood and affect. Pt update on day of discharge The patient was anxious to go home. His family was at the bedside. Their questions were answered. No acute concerns. Hospital Course Dysphagia/ Possible NPH/ Dementia MRI of the head and carotid ultrasounds were negative. Echocardiogram did not comment on any intramural thrombus but did note a diastolic dysfunction. He was followed by speech therapy. Modified barium study was performed. The pt was continued on a pureed diet. Neurology was consulted. His Dilantin level was low and was increased to 130 mg BID. EEG without evidence of seizures. Donepezil was added. He was continued on his home dose of Namenda. He will follow up with neurology as an outpt. He will be discharged with home health care services. He will continue to work with speech therapy. Uncontrolled DM Elevated A1c greater than 10%. He was started on Levemir 10 units twice a day. We consulted the tobacco prevention health educator and dietitian. Will d/c the pt on home meds plus Levemir 10 units daily. He will also have an insulin sliding scale. He will follow up with his primary care doctor. Hypernatremia Resolved with hydration. Pt Condition on Discharge: Stable Discharge Disposition: Disch w/ Home Health Serv Discharge Time: > 30 minutes Discharge Instructions DIET: Follow Instructions for: Diabetic Diet Speech Therapy-Diet Recommends: Pureed Activities you can perform: Weight Bearing as Tamara Follow up Referrals: Neurology - 1 Week with Toño Davis MD PCP Follow-up - 1 Week New Orders: Speech Therapy - 2-3 Days New Medications: Insulin Aspart Inj (Novolog Inj) 1,000 Unit/10 Ml Vial 1-9 UNITS SQ ACHS for Blood Sugar Management, #10 ML 0 Refills Max dose at bedtime:( )units; sugars less than 70,(0)units; sugars 150-199,(1) unit; sugars 200-249,(3) units; sugars 250-299,(5) units; sugars 300-349,(7) units; sugars greater than 349,(9) units Insulin Detemir Inj (Levemir Flextouch Pen Inj) 300 unit/3 ML Pen 10 UNITS SQ DAILY for Blood Sugar Management, #5 PEN 0 Refills Donepezil HCl (Aricept) 5 Mg Tablet 2.5 MG PO DAILY for dementia, #30 TAB Phenytoin (Phenytoin) 100 Mg/4 Ml Oral.susp 130 MG PO BID for seizure, #1 BOTTLE Continued Medications: Glipizide (Glipizide) 10 Mg Tab 10 MG PO DAILY for Blood Sugar Management, #30 TAB 0 Refills Take 30 minutes before a meal Memantine (Memantine) 10 Mg Tab 10 MG PO BID for Alzheimer's Dementia, TAB 0 Refills Multiple Vitamins W/ Minerals (Centrum Silver) 400 Mcg-250 Mcg Chw 1 TAB PO DAILY Omeprazole (Omeprazole) 20 Mg Tab 20 MG PO DAILY, #30 TAB 0 Refills Oxybutynin ER 24 HR (Oxybutynin ER 24 HR) 5 Mg Tab 5 MG PO BID for Overactive Bladder, TAB 0 Refills Simvastatin (Zocor) 40 Mg Tab 40 MG PO HS for Cholesterol Management, #30 TAB 0 Refills Discontinued Medications: Phenytoin Extended (Dilantin) 100 Mg Cap 100 MG PO BID for Control Seizures, #90 CAP 0 Refills Johnson Quintanilla DO May 04, 2017 09:10
[2017-05-04] MEDS: PANTOPRAZOLE SOD 20 MG DELAYED RELEASE TAB PO SCH (09:16)
[2017-05-04] MEDS: MULTIVITAMINS/MINERALS THERAPEUTIC TAB PO SCH (09:16)
[2017-05-04] MEDS: MEMANTINE HCL 10 MG TAB PO SCH (09:17)
[2017-05-04] MEDS: PHENYTOIN SODIUM 100 MG CAP PO SCH (09:17)
--- NOTE | 2017-05-04 10:00 | HHI.PR ---
Review/Management Diagnosis/Plan: (1) Alzheimer's dementia ICD Codes: F02.80 - Dementia in oth diseases classd elswhr w/o behavrl disturb ; G30.9 - Dementia in Alzheimer's disease Status: Chronic Plan: chronic dementia; probable alz type +/- concussive. also, possibility of nph but this has been evaluated already by nsx on namenda on dilantin for ? 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: Chronic (4) Impaired gait ICD Codes: R26.9 - Impaired gait Status: Chronic (5) S/P craniotomy ICD Codes: Z98.89 - Status post craniotomy Status: Chronic Subjective Subjective Comments No acute events reported No headache No chest pain No dyspnea Active Medications Current Medications Medications (Trade) Dose Ordered Sig/Rylie Route Start Time Stop Time Status Last Admin (Lovenox Inj) 30 mg Q24H SQ 04/29/17 18:00 05/03/17 17:27 (Namenda) 10 mg BID PO 04/29/17 21:00 05/04/17 09:17 (Dilantin) 100 mg BID PO 04/29/17 21:00 05/04/17 09:17 (Dilantin Inj) 100 mg Q12HR IV 04/29/17 21:00 05/01/17 08:59 (Theragran M Tab) 1 tab DAILY PO 04/30/17 09:00 05/04/17 09:16 (Protonix) 20 mg DAILY PO 04/30/17 09:00 05/04/17 09:16 (D50w (Vial) Inj) 50 ml UNSCH PRN IV PUSH 04/29/17 19:30 (Glucagon Inj) 1 mg UNSCH PRN OTHER 04/29/17 19:30 (Vasotec Inj) 1.25 mg Q6H PRN IV PUSH 04/29/17 20:45 (Levemir Inj) 10 units Q12HR SQ 04/30/17 21:00 05/04/17 09:00 (NovoLIN R SUPPLEMENTAL SCALE) 1 ACHS SLIDING SCALE SQ 04/30/17 21:00 05/03/17 17:00 (Aricept) 2.5 mg DAILY PO 05/04/17 09:00 05/04/17 09:16 (Pill Splitter) 1 ea UNSCH PRN OTHER 05/03/17 16:00 Allergies Allergies Coded Allergies No Known Allergies (Verified09/23/15) Review of Systems All other ROS: ROS reviewed as documented in chart Exam I&O / VS Vital Signs Date Time Temp Pulse Resp B/P (MAP) Pulse Ox O2 Delivery O2 Flow Rate FiO2 05/04/17 08:00 98.6 84 16 106/61 (76) 95 05/04/17 07:29 125 05/04/17 04:00 98.2 83 18 122/62 (82) 100 05/04/17 00:18 98.4 92 18 107/67 (80) 96 05/03/17 20:34 98.3 97 18 107/67 (80) 96 05/03/17 17:29 99.0 66 20 160/76 (104) 98 05/03/17 12:39 99.4 97 20 108/69 (82) 96 General: No acute distress Eye: EOMI Respiratory: Lungs CTA, Non-labored respirations, BS equal Cardiology: Normal rate, Regular Rhythm Musculoskeletal: Swelling Neurologic: Alert Psychiatric: Cooperative, Appropriate mood & affect Exam Comments ox 1-2, not to date, poor historian, 0/3 after 5 mins, mild ideomotor/ constructional apraxia, eomi, ou 2.5-2mm, face sym, no focal weakness, no tremors, minimal increased tone in ue, no clonus, planterflexor Objective Micro and Labs Laboratory Tests Test 05/03/17 18:55 05/04/17 05:22 Erythrocyte Sedimentation Rate 28 Vitamin B12 Level 480 Blood Urea Nitrogen 9 Creatinine 0.85 Random Glucose 146 Calcium Level 7.8 Magnesium Level 1.7 Sodium Level 139 Potassium Level 3.8 Chloride Level 105 Carbon Dioxide Level 28.4 Anion Gap 6 Estimat Glomerular Filtration Rate 107 Phenytoin (Dilantin) Level 5.3 Date/Time Source Procedure Growth Status 04/29/17 13:01 Blood Peripheral Aerobic Blood Culture - Preliminary NO GROWTH IN 4 DAYS Resulted 04/29/17 13:01 Blood Peripheral Anaerobic Blood Culture - Preliminary NO GROWTH IN 4 DAYS Resulted Problem Qualifiers (1) Hypertension: Qualified Codes: I10 - Essential (primary) hypertension Toño Davis MD May 04, 2017 10:00
[2017-05-04] MEDS ORDERED: PHENYTOIN SUSP 100 MG/4 ML CUP PO SCH (11:45)
[2017-05-04] MEDS ORDERED: PHEN125S9 PO (11:53)
== END 2017-05-04 12:29 | disposition home health service (06) | DRG 392 ==
LOC: NEPE 11:53 → NEDA 14:44 → N05A 18:11
PROVIDERS: ADMIT Hospitalist; ATTEND Hospitalist
DX: R13.10 Dysphagia, unspecified (principal); N17.9 Acute kidney failure, unspecified; E87.0 Hyperosmolality and hypernatremia; G91.0 Communicating hydrocephalus; E87.2 Acidosis; E11.65 Type 2 diabetes mellitus with hyperglycemia; E87.5 Hyperkalemia; E86.0 Dehydration; G30.9 Alzheimer's disease, unspecified; F02.80 Dementia in other diseases classified elsewhere, unspecified severity, without behavioral disturbance, psychotic disturbance, mood disturbance, and anxiety; W01.0XXA Fall on same level from slipping, tripping and stumbling without subsequent striking against object, initial encounter; R26.81 Unsteadiness on feet; D18.1 Lymphangioma, any site; R47.81 Slurred speech; I10 Essential (primary) hypertension; Z23 Encounter for immunization
CPT/HCPCS: 70450; 70551; 71020; 72125; 74230; 76937; 80048; 80061; 80076; 80185; 81001; 82550; 82552; 82607; 82948; 83036; 83605; 83735; 84100; 84443; 84484; 85025; 85027; 85652; 87040; 90471; 90686; 93005; 93306; 93880; 95819; 96360; 96372; G0008; J1165; J1650; J1815; J7030; P9612; Q2038

== ENCOUNTER 2017-10-01 23:11 | Emergency (ER) | payer MEDICARE, OTHER ==
[~2017-10-01] VITALS: Ht 180.3 cm; Wt 80.0 kg
[~2017-10-01 23:11] MED LIST changes: +ARIC5TAB6 PO; +CENTCHW3 PO; -CENTTAB9 PO; +GLIP10TA6 PO; +INSU1INJ5 SQ; +MEMA1TAB2 PO; -METF500 PO; -NAME10TA PO; +NOVOLOGP2 SQ; -OMEP20TA39 PO; +OMEP20TA93 PO; +OXYB5TAB PO; -PHEN100 PO; +PHEN100O PO
[2017-10-01 23:46] VITALS: BP 131/82; PULSE 63; RESP 18; TEMP 97.8; O2SAT 96
--- NOTE | 2017-10-02 01:44 | PD ---
HPI Chief Complaint: Neuro Symptoms/ Deficits Time Seen by Provider: 01:25 Travel History International Travel<30 days: No Contact w/Intl Traveler<30days: No Traveled to known affect area: No History of Present Illness HPI The patient is a 77 year old male who presents to the [facility] emergency department with a history of reportedly being awakened to have his medications administered him by his family when he was noted to be staring and not following commands per his usual baseline mentation. The patient does have a history of dementia, however he is usually awake and alert and follows commands. The patient's family reports that it lasted for 10-20 minutes and then he seemed to become normal again. He did not having any shaking associated with this. He did not have any loss of bowel or bladder control. He did not bite his tongue. 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 He is on Dilantin. He has been taking his medication as prescribed as his family administers it to him. The patient' s family is at the bedside to provide additional history. The patient's family denies him having any recent fevers or chills, cough or chest congestion cough, neck pain, chest pain, shortness of breath, abdominal pain, vomiting, diarrhea , urinary symptoms, or other neurologic symptoms. [facility] Past Medical History Narrative Medical The patient's past medical history is significant for hyperlipidemia, diabetes mellitus, history of dementia, history of acid reflux, history of having a subdural hematoma status post evacuation, history of seizures, history of encephalopathy. Alzheimer's Disease: Yes Arthritis: No Asthma: No Autoimmune Disease: No Blood Disorders: No Anxiety: No Depression: No Heart Rhythm Problems: No Cancer: No Cardiac Catheterization: Yes Cardiovascular Problems: Yes High Cholesterol: No Chemotherapy: No Chest Pain: Yes Congestive Heart Failure: No COPD: No Cerebrovascular Accident: No Coronary Artery Disease: Yes Dementia: Yes Diabetes: Yes (dm 2) Patient Takes Glucophage: No (unknown no family at bedside at this time) Diminished Hearing: No Endocrine: Yes Gastrointestinal Disorders: Yes (GERD) GERD: Yes Genitourinary: No Hepatitis: No Hiatal Hernia: No Hypertension: Yes Immune Disorder: No Kidney Stones: No Musculoskeletal: No Neurologic: Yes (SDH, SEIZURES, ENCEPAHLOPATHY) Psychiatric: No Reproductive: No Respiratory: No Immunizations Current: Yes Migraines: No Myocardial Infarction: No Radiation Therapy: No Renal Failure: No Seizures: No Sickle Cell Disease: No Sleep Apnea: No Thyroid Disease: No Ulcer: No Tetanus Vaccination: Unknown PNEUMOCCOCAL Vaccine (Year): 2 Past Surgical History Narrative Surgical The patient's past surgical history is significant for bilateral craniotomy. Abdominal Surgery: No AICD: No Arteriovenous Shunt: No Cardiac Surgery: No Ear Surgery: No Endocrine Surgery: No Eye Surgery: No Genitourinary Surgery: No Gynecologic Surgery: No Insulin Pump: No Joint Replacement: No Neurologic Surgery: Yes (BILATERAL CRANIOTOMY) Oral Surgery: No Pacemaker: No Thoracic Surgery: No Other Surgery: Yes Family History Family Hypercholesterolemia: Yes Social History Alcohol Use: No Tobacco Use: No Substance Use: No Allergies-Medications (Allergen,Severity, Reaction): Coded Allergies: No Known Allergies (Verified , 09/23/15) Reported Meds & Prescriptions Reported Meds & Active Scripts Active Dilantin (Phenytoin Extended) 100 Mg Cap 100 Mg PO DIRECTED 14 Days Take two capsules in the morning and three capsules at night Novolog Inj (Insulin Aspart) 1,000 Unit/10 Ml Vial 1-9 Units SQ ACHS Max dose at bedtime:( )units; sugars less than 70,(0)units; sugars 150-199,(1) unit; sugars 200-249,(3) units; sugars 250-299,(5) units; sugars 300-349,(7) units; sugars greater than 349,(9) units Levemir Flextouch Pen Inj (Insulin Detemir) 300 unit/3 ML Pen 10 Units SQ DAILY Aricept (Donepezil HCl) 5 Mg Tablet 2.5 Mg PO DAILY Reported Glipizide 10 Mg Tab 10 Mg PO DAILY Take 30 minutes before a meal Oxybutynin ER 24 HR (Oxybutynin Chloride) 5 Mg Tab 5 Mg PO BID Centrum Silver (Multiple Vitamins W/ Minerals) 400 Mcg-250 Mcg Chw 1 Tab PO DAILY Zocor (Simvastatin) 40 Mg Tab 40 Mg PO HS Memantine 10 Mg Tab 10 Mg PO BID Omeprazole 20 Mg Tab 20 Mg PO DAILY Review of Systems Except as stated in HPI: all other systems reviewed are Neg General / Constitutional: No: Fever Eyes: No: Visual changes HENT: No: Headaches Cardiovascular: No: Chest Pain or Discomfort Respiratory: No: Shortness of Breath Gastrointestinal: No: Abdominal Pain Genitourinary: No: Dysuria Musculoskeletal: No: Pain Skin: No Rash Neurologic: Positive: Change in Mentation, No: Weakness, Focal Abnormalities, Slurred Speech, Sensory Disturbance Psychiatric: No: Depression Endocrine: No: Polydipsia Hematologic/Lymphatic: No: Easy Bruising Physical Exam Narrative General: The patient is a well-developed well-nourished male in no acute distress. The patient is smiling and interactive Head and Neck exam: Head is normocephalic atraumatic. Eyes: EOMI, pupils are equal round and reactive to light. Nose: Midline septum with pink mucous membranes Mouth: Dentition unremarkable. Moist mucus membranes. Posterior oropharynx is not erythematous. No tonsillar hypertrophy. Uvula midline. Airway patent. Neck: No palpable lymphadenopathy. No nuchal rigidity. No thyromegaly. Cardiovascular: Regular rate and rhythm without murmurs, gallops, or rubs. Lungs: Clear to auscultation bilaterally. No wheezes, rhonchi, or rales. Abdomen: Soft, without tenderness to palpation in all 4 quadrants of the abdomen. No guarding, rebound, or rigidity. Normal bowel sounds are audible. No tenderness on palpation of McBurney's point. Negative Azevedo sign. Extremities: No clubbing, cyanosis, or edema. 2+ pulses in all 4 extremities. No calf tenderness on palpation Back: No costovertebral angle tenderness to palpation. Neurologic Exam: Cranial nerves 2-12 were intact on exam. Strength is 5/5 in all 4 extremities. No sensory deficits noted. The patient is oriented to person, place, however not time or situation. Skin Exam: No rash noted. Intact skin that is warm and dry. Data Data Last Documented VS Vital Signs Date Time Temp Pulse Resp B/P (MAP) Pulse Ox O2 Delivery O2 Flow Rate FiO2 10/02/17 01:50 16 98 Room Air 10/01/17 23:46 97.8 63 131/82 (98) Orders Orders Electrocardiogram (10/02/17 01:33) Complete Blood Count With Diff (10/02/17 01:33) Comprehensive Metabolic Panel (10/02/17 01:33) Prothrombin Time / Inr (Pt) (10/02/17 01:33) Act Partial Throm Time (Ptt) (10/02/17 01:33) Urinalysis - C+S If Indicated (10/02/17 01:33) Magnesium (Mg) (10/02/17 01:33) Phenytoin (Dilantin) (10/02/17 01:33) Chest, Single Ap (10/02/17 01:33) Ct Brain W/O Iv Contrast(Rout) (10/02/17 01:33) Iv Access Insert/Monitor (10/02/17 01:33) Ecg Monitoring (10/02/17 01:33) Oximetry (10/02/17 01:33) Phenytoin (Dilantin) (10/02/17 03:00) Ed Discharge Order (10/02/17 04:42) Labs Laboratory Tests Test 10/02/17 02:00 10/02/17 04:00 White Blood Count 7.2 TH/MM3 Red Blood Count 4.99 MIL/MM3 Hemoglobin 14.4 GM/DL Hematocrit 42.7 % Mean Corpuscular Volume 85.6 FL Mean Corpuscular Hemoglobin 28.8 PG Mean Corpuscular Hemoglobin Concent 33.7 % Red Cell Distribution Width 15.9 % Platelet Count 229 TH/MM3 Mean Platelet Volume 7.4 FL Neutrophils (%) (Auto) 57.9 % Lymphocytes (%) (Auto) 29.0 % Monocytes (%) (Auto) 9.2 % Eosinophils (%) (Auto) 3.4 % Basophils (%) (Auto) 0.5 % Neutrophils # (Auto) 4.2 TH/MM3 Lymphocytes # (Auto) 2.1 TH/MM3 Monocytes # (Auto) 0.7 TH/MM3 Eosinophils # (Auto) 0.2 TH/MM3 Basophils # (Auto) 0.0 TH/MM3 CBC Comment DIFF FINAL Differential Comment Prothrombin Time 10.4 SEC Prothromb Time International Ratio 1.0 RATIO Activated Partial Thromboplast Time 25.7 SEC Blood Urea Nitrogen 9 MG/DL Creatinine 1.21 MG/DL Random Glucose 99 MG/DL Total Protein 7.4 GM/DL Albumin 3.3 GM/DL Calcium Level 8.4 MG/DL Magnesium Level 2.0 MG/DL Alkaline Phosphatase 116 U/L Aspartate Amino Transf (AST/SGOT) 17 U/L Alanine Aminotransferase (ALT/SGPT) 23 U/L Total Bilirubin 0.2 MG/DL Sodium Level 142 MEQ/L Potassium Level 4.2 MEQ/L Chloride Level 108 MEQ/L Carbon Dioxide Level 30.7 MEQ/L Anion Gap 3 MEQ/L Estimat Glomerular Filtration Rate 71 ML/MIN Phenytoin (Dilantin) Level 6.5 MCG/ML Urine Color YELLOW Urine Turbidity CLEAR Urine pH 7.0 Urine Specific Pettigrew 1.012 Urine Protein NEG mg/dL Urine Glucose (UA) NEG mg/dL Urine Ketones NEG mg/dL Urine Occult Blood NEG Urine Nitrite NEG Urine Bilirubin NEG Urine Urobilinogen LESS THAN 2.0 MG/DL Urine Leukocyte Esterase NEG Urine RBC 1 /hpf Urine WBC LESS THAN 1 /hpf Urine Mucus FEW /lpf Microscopic Urinalysis Comment CULT NOT INDICATED MDM Medical Decision Making Medical Screen Exam Complete: Yes Emergency Medical Condition: Yes Medical Record Reviewed: Yes Interpretation(s) Last Impressions Head CT 10/02/17132 Signed Impressions: Service Date/Time: Monday, October 02, 2017 02:04 - CONCLUSION: 1. No significant interval change is identified. There is moderate to severe generalized atrophy with ventriculomegaly which has not significantly changed. 2. Stable chronic extra-axial bifrontal fluid collections representing either old subdural hematomas or subdural hygromas. Baldev Christensen MD Chest X-Ray 10/02/17132 Signed Impressions: Service Date/Time: Monday, October 02, 2017 01:37 - CONCLUSION: No acute cardiopulmonary abnormality is identified. Baldev Christensen MD Differential Diagnosis Seizure activity, versus altered mental status related to urinary tract infection, versus pneumonia, versus electrolyte derangement, versus intracranial abnormal Narrative Course During the course of the patient's emergency department visit, the patient's history, examination, and differential diagnosis were reviewed with the patient. The patient was placed on a framing specialist with oximetry and frequent blood pressure monitoring. The patient had IV access obtained and blood work sent for analysis. The patient had an EKG done on arrival that shows a sinus rhythm, right bundle branch block, heart rate of 67, QRS duration 120 ms, QTC [address] segment elevation is noted. The patient's laboratory studies were reviewed and remarkable for a white count of 7.2, hemoglobin 14.4, platelets 229 with 9.2 monocytes, CMP is remarkable for chloride of 108, anion gap 3, GFR of 71, calcium 8.4, albumin 3.3, PT 10.4, PTT 25.7, urinalysis is unremarkable, Dilantin level is subtherapeutic at 6.5. Radiology studies were reviewed and remarkable for chest x-ray that shows no acute cardiopulmonary abnormality. CT scan of the brain shows no significant interval change identified. There is moderate to severe generalized atrophy with ventriculomegaly which is not significantly changed. Stable chronic extra- axial bifrontal fluid collections representing either old subdural hematomas or subdural hygromas. The patient was found to be subtherapeutic on Dilantin with a story suspicious for seizure. The patient is currently on Dilantin 200 mg in the morning, 200 mg in the evening. The patient's family is instructed to increase the dose to 200 mg in the morning, 300 mg in the evening. They were given a new prescription. They were instructed that they will need to have his Dilantin level rechecked in the next week to reassess the level. They will also given the name of the neurologist compressor station engineer chief for follow-up, Dr. Davis. They were instructed to call his office in the morning to schedule an appointment. The patient is resting comfortably and feels better, is alert and in no distress. The patient's results and examination findings were discussed with the patient. The repeat examination is unremarkable and benign. The history, exam, diagnostic testing, and current condition do not suggest any significant pathology to warrant further testing, continued ED treatment, admission, or surgical evaluation at this point. The vital signs have been stable. The patient does not have uncontrollable pain, intractable vomiting, or other significant symptoms. The patient's condition is stable and appropriate for discharge. The patient will pursue further outpatient evaluation with a primary care physician or other designated or consulting physician as indicated in the discharge instructions. The patient expressed understanding and was agreeable with this plan. Diagnosis Primary Impression: Altered mental state Qualified Codes: R40.4 - Transient alteration of awareness Referrals: Toño Davis MD call for appointment Patient Instructions: Altered Mental Status (ED), General Instructions Med/Other Pt SpecificInfo: Prescription(s) given, Existing Med Changed Scripts Phenytoin Extended (Dilantin) 100 Mg Cap 100 MG PO DIRECTED for Control Seizures for 14 Days, CAP 0 Refills Take two capsules in the morning and three capsules at night Prov: Lorin Villanueva MD 3/7/18 Disposition: 01 DISCHARGE HOME Condition: Stable Rich,Lorin D. MD Oct 02, 2017 01:44
[2017-10-02 01:50] VITALS: RESP 16; O2SAT 98
--- NOTE | 2017-10-02 02:03 | RADRPT ---
EXAM DATE/TIME: 10/02/2017 01:37 [facility] COMPARISON: CHEST SINGLE AP, November 30, 2014, 12:08. INDICATIONS : Shortness of breath. MEDICAL HISTORY : Gastroesophageal reflux disease. Seizures. Encephalopathy. Dementia. Alzheimer's disease. coron jered artery disease. diabetes. SURGICAL HISTORY : Cardiac catheterization. ENCOUNTER: Initial ACUITY: 1 day PAIN SCORE: Non-responsive. LOCATION: Bilateral chest FINDINGS: Portable AP view of the chest demonstrates a normal-sized cardiac silhouette. Lungs are underinflated with elevation of the left hemidiaphragm. There is mild atelectasis at the lung bases. No effusion, consolidation, or pneumothorax is identified. The bones and soft tissues demonstrate no acute finding . CONCLUSION: No acute cardiopulmonary abnormality is identified. Baldev Christensen MD on October 02, 2017 at 1:59 Board Certified Radiologist. This report was verified electronically.
[2017-10-02 02:21] LABS: AUTOMATED NEUTROPHIL # 4.2 TH/MM3 (1.8-7.7); BASOPHIL % 0.5 % (0.0-2.0); EOSINOPHIL # 0.2 TH/MM3 (0-0.4); EOSINOPHIL % 3.4 % (0.0-4.0); HEMATOCRIT 42.7 % (39.0-51.0); HEMOGLOBIN 14.4 GM/DL (13.0-17.0); LYMPHOCYTE # 2.1 TH/MM3 (1.0-4.8); MEAN CELL VOLUME 85.6 FL (80.0-100.0); MEAN CORPUSCULAR HEMOGLOBIN 28.8 PG (27.0-34.0); MEAN CORPUSCULAR HGB CONC 33.7 % (32.0-36.0); MEAN PLATELET VOLUME 7.4 FL (7.0-11.0); MONO % 9.2 % (0.0-8.0); MONOCYTE # 0.7 TH/MM3 (0-0.9); NEUT % 57.9 % (16.0-70.0); PLATELET COUNT 229 TH/MM3 (150-450); RED BLOOD COUNT 4.99 MIL/MM3 (4.50-5.90); RED CELL DISTRIBUTION WIDTH 15.9 % (11.6-17.2); WHITE BLOOD COUNT 7.2 TH/MM3 (4.0-11.0)
--- NOTE | 2017-10-02 02:26 | RADRPT ---
EXAM DATE/TIME: 10/02/2017 02:04 [facility] COMPARISON: CT BRAIN W/O CONTRAST, April 29, 2017, 13:36. INDICATIONS : Altered mental status. RADIATION DOSE: 56.35 CTDIvol (mGy) MEDICAL HISTORY : Hypertension. Alzheimer's. Cardiovascular disease SURGICAL HISTORY : Craniotomy. ENCOUNTER: Initial ACUITY: 1 day PAIN SCALE: 0/10 LOCATION: cranial TECHNIQUE: Multiple contiguous axial images were obtained of the head. Using automated exposure control and adj ustment of the mA and/or kV according to patient size, radiation dose was kept as low as reasonably a chievable to obtain optimal diagnostic quality images. DICOM format image data is available electro nically for review and comparison. FINDINGS: CEREBRUM: There is [id number] generalized atrophy. Ventricles are mildly enlarged similar to or slightl y increased from the prior study particularly the frontal horns. There is stable encephalomalacia in the left frontal lobe. Extra-axial fluid collections in the bifrontal region are stable. No midline shift, mass lesion, hemorrhage or acute infarction. POSTERIOR FOSSA: There is cerebellar atrophy. The 4th ventricle is midline. The cerebellopontine angle is unremarkab le. EXTRACRANIAL: Sinuses are clear. SKULL: There has been prior bilateral frontal craniotomy with bifrontal dayton holes. Skull demonstrates incre ased density. There are chronic changes at the mandibular condyles bilaterally. CONCLUSION: 1. No significant interval change is identified. There is moderate to severe generalized atrophy with ventriculomegaly which has not significantly changed. 2. Stable chronic extra-axial bifrontal fluid collections representing either old subdural hematomas or subdural hygromas. Baldev Christensen MD on October 02, 2017 at 2:20 Board Certified Radiologist. This report was verified electronically.
[2017-10-02 02:41] LABS: ALBUMIN 3.3 GM/DL (3.4-5.0); AST (GOT) 17 U/L (15-37); BICARBONATE 30.7 MEQ/L (21.0-32.0); BLOOD UREA NITROGEN 9 MG/DL (7-18); CALCIUM 8.4 MG/DL (8.5-10.1); CHLORIDE 108 MEQ/L (98-107); CREATININE 1.21 MG/DL (0.60-1.30); GLOMERULAR FILTRATION RATE 71 ML/MIN (>89); GLUCOSE,RANDOM 99 MG/DL (74-106); SODIUM (NA) 142 MEQ/L (136-145)
[2017-10-02 02:44] LABS: PROTHROMBIN TIME - PATIENT 10.4 SEC (9.8-11.6)
[2017-10-02 02:45] LABS: ALKALINE PHOSPHATASE 116 U/L (45-117); ALT (GPT) 23 U/L (12-78); PHENYTOIN (DILANTIN) 6.5 MCG/ML (10.0-20.0); TOTAL BILIRUBIN ADULT 0.2 MG/DL (0.2-1.0); TOTAL PROTEIN 7.4 GM/DL (6.4-8.2)
[2017-10-02] MEDS ORDERED: PHENYTOIN SODIUM 100 MG CAP PO ONE (03:00)
[2017-10-02 04:30] LABS: BILIRUBIN, URINE NEG (NEG); BLOOD, URINE NEG (NEG); GLUCOSE,URINE NEG (NEG); KETONE, URINE NEG (NEG); MUCUS URINE FEW /lpf (OCC); NITRITE,URINE NEG (NEG); URINE COLOR YELLOW (YELLW/STRAW); URINE LEUKOCYTE ESTERASE NEG (NEG)
[2017-10-02] MEDS ORDERED: DILA100C PO (04:48)
--- NOTE | 2017-10-02 10:50 | EKG ---
Date Performed: 10/02/2017 Time Performed: 01:25:34 PTAGE: 77 years EKG: Sinus rhythm INCOMPLETE RIGHT BUNDLE BRANCH BLOCK ABNORMAL ECG NO PREVIOUS TRACING DOCTOR: Ezra Katz Interpretating Date/Time 10/02/2017 10:49:04
== END 2017-10-02 05:22 | disposition home or self-care (01) ==
LOC: NEPC 23:11
DX: R40.4 Transient alteration of awareness (principal); G30.9 Alzheimer's disease, unspecified; F02.80 Dementia in other diseases classified elsewhere, unspecified severity, without behavioral disturbance, psychotic disturbance, mood disturbance, and anxiety; E11.9 Type 2 diabetes mellitus without complications; E78.5 Hyperlipidemia, unspecified; K21.9 Gastro-esophageal reflux disease without esophagitis; Z79.4 Long term (current) use of insulin
CPT/HCPCS: 70450; 71045; 80053; 80185; 81001; 83735; 85025; 85610; 85730; 93005; 99285

== ENCOUNTER 2017-10-07 21:32 | Inpatient (IN) | payer OTHER, MEDICARE ==
[~2017-10-07 21:32] MED LIST changes: +DILA100C PO; -PHEN100O PO
[2017-10-07 21:39] VITALS: BP 136/70; PULSE 104; RESP 20; TEMP 99.5; O2SAT 95
--- NOTE | 2017-10-07 22:23 | RADRPT ---
EXAM DATE/TIME: 10/07/2017 21:49 [facility] COMPARISON: CHEST SINGLE AP, October 15, 2014, 16:46. CHEST SINGLE AP, October 02, 2017, 1:37. CHEST PA & LAT, Octo 2016, 12:34. INDICATIONS : Altered mental status. MEDICAL HISTORY : Gastroesophageal reflux disease. Seizures. Encephalopathy. Dementia. Alzheimer's disease. coronary ar hank disease. diabetes. SURGICAL HISTORY : Cardiac catheterization. ENCOUNTER: Initial ACUITY: 2 days PAIN SCORE: Non-responsive. LOCATION: Bilateral chest FINDINGS: Trace left base atelectasis. Elevated left hemidiaphragm again noted. No infiltrate, effusion or pneu mothorax demonstrated. Heart size stable, within normal limits. CONCLUSION: Minimal atelectasis at the left base. Chronically elevated left hemidiaphragm. Baldev Ayala MD on October 07, 2017 at 22:20 Board Certified Radiologist. This report was verified electronically.
--- NOTE | 2017-10-07 22:41 | RADRPT ---
EXAM DATE/TIME: 10/07/2017 22:11 [facility] COMPARISON: CT BRAIN W/O CONTRAST, October 02, 2017, 2:04. INDICATIONS : Altered mental status. RADIATION DOSE: 26.06 CTDIvol (mGy) MEDICAL HISTORY : Dementia. Gastroesophageal reflux disease. SURGICAL HISTORY : Craniotomy. ENCOUNTER: Initial ACUITY: 1 day PAIN SCALE: Non-responsive LOCATION: cranial TECHNIQUE: Multiple contiguous axial images were obtained of the head. Using automated exposure control and adj ustment of the mA and/or kV according to patient size, radiation dose was kept as low as reasonably a chievable to obtain optimal diagnostic quality images. DICOM format image data is available electro nically for review and comparison. FINDINGS: CEREBRUM: There is [id number]-[id number] generalized atrophy. Ventricles are mildly enlarged similar to or slightl y increased from the prior study particularly the frontal horns. There is stable encephalomalacia in the left frontal lobe. Low density fluid collections in the bifrontal region are stable. No midline shift, mass lesion, hemorrhage or acute infarction. POSTERIOR FOSSA: There is cerebellar atrophy. The 4th ventricle is midline. The cerebellopontine angle is unremarkab le. EXTRACRANIAL: Sinuses are clear. SKULL: Craniotomy and dayton hole changes are again noted. CONCLUSION: 1. No acute intracranial abnormality demonstrated. 2. Patchy and prominent ventricles unchanged. 3. Chronic bifrontal cystic hygromas unchanged. 4. Previous craniotomy. Baldev Ayala MD on October 07, 2017 at 22:37 Board Certified Radiologist. This report was verified electronically.
[2017-10-07 22:42] LABS: AUTOMATED NEUTROPHIL # 12.2 TH/MM3 (1.8-7.7); BASOPHIL % 0.3 % (0.0-2.0); EOSINOPHIL # 0.1 TH/MM3 (0-0.4); EOSINOPHIL % 0.4 % (0.0-4.0); HEMATOCRIT 43.4 % (39.0-51.0); HEMOGLOBIN 14.7 GM/DL (13.0-17.0); LYMPH % 13.1 % (9.0-44.0); LYMPHOCYTE # 2.1 TH/MM3 (1.0-4.8); MEAN CELL VOLUME 85.8 FL (80.0-100.0); MEAN CORPUSCULAR HGB CONC 33.9 % (32.0-36.0); MEAN PLATELET VOLUME 8.3 FL (7.0-11.0); MONO % 8.6 % (0.0-8.0); MONOCYTE # 1.4 TH/MM3 (0-0.9); NEUT % 77.6 % (16.0-70.0); PLATELET COUNT 232 TH/MM3 (150-450); RED BLOOD COUNT 5.06 MIL/MM3 (4.50-5.90); RED CELL DISTRIBUTION WIDTH 15.4 % (11.6-17.2); WHITE BLOOD COUNT 15.7 TH/MM3 (4.0-11.0)
[2017-10-07 22:58] LABS: PROTHROMBIN TIME - PATIENT 10.2 SEC (9.8-11.6)
[2017-10-07 23:11] LABS: ALBUMIN 3.4 GM/DL (3.4-5.0); ALT (GPT) 20 U/L (12-78); AST (GOT) 14 U/L (15-37); BICARBONATE 24.1 MEQ/L (21.0-32.0); BLOOD UREA NITROGEN 12 MG/DL (7-18); CALCIUM 8.5 MG/DL (8.5-10.1); CHLORIDE 103 MEQ/L (98-107); CREATININE 1.34 MG/DL (0.60-1.30); GLOMERULAR FILTRATION RATE 63 ML/MIN (>89); GLUCOSE,RANDOM 230 MG/DL (74-106); SODIUM (NA) 136 MEQ/L (136-145)
[2017-10-07 23:14] LABS: ALKALINE PHOSPHATASE 131 U/L (45-117); PHENYTOIN (DILANTIN) 20.1 MCG/ML (10.0-20.0); TOTAL BILIRUBIN ADULT 0.3 MG/DL (0.2-1.0); TOTAL PROTEIN 7.9 GM/DL (6.4-8.2)
[2017-10-08] VITALS (11 sets, daily range): BP systolic 112–147; BP diastolic 68–76; PULSE 68–103; RESP 15–20; TEMP 97.7–100.5; O2SAT 94–96
[2017-10-08] MEDS ORDERED: PHEN200C3 PO (01:16)
--- NOTE | 2017-10-08 01:28 | PD ---
HPI Chief Complaint: Neuro Symptoms/ Deficits Time Seen by Provider: 01:03 Travel History International Travel<30 days: No Contact w/Intl Traveler<30days: No Traveled to known affect area: No History of Present Illness HPI 77yo M with PMH of dementia, HLD, DM, subdural hematoma s/p evacuation now on dilantin for seizure prevention here with c/o worsening generalized weakness for about 4 days. Said for the last 2 days, he cannot even walk by himself. Also with slurred speech and drooling for 2-3 days. Said this is new for him. [place] warm but no fever documented. +Cough. Denies any chest pain, sob, n/v, abdominal pain, diarrhea. Pt was seen here 10/01/17 for what sounds like possible seizure. The dilantin level was subtherapeutic at the time so the evening dose was increase to 300mg instead of 200mg. Pt takes 200mg of dilantin AM. PFSH Past Medical History Alzheimer's Disease: Yes Arthritis: No Asthma: No Autoimmune Disease: No Blood Disorders: No Anxiety: No Depression: No Heart Rhythm Problems: No Cancer: No Cardiac Catheterization: Yes Cardiovascular Problems: Yes High Cholesterol: No Chemotherapy: No Chest Pain: Yes Congestive Heart Failure: No COPD: No Cerebrovascular Accident: No Coronary Artery Disease: Yes Dementia: Yes Diabetes: Yes (dm 2) Patient Takes Glucophage: Yes Diminished Hearing: No Endocrine: Yes Gastrointestinal Disorders: Yes (GERD) GERD: Yes Genitourinary: No Hepatitis: No Hiatal Hernia: No Hypertension: Yes Immune Disorder: No Kidney Stones: No Musculoskeletal: No Neurologic: Yes (SDH, SEIZURES, ENCEPAHLOPATHY) Psychiatric: No Reproductive: No Respiratory: No Immunizations Current: Yes Migraines: No Myocardial Infarction: No Radiation Therapy: No Renal Failure: No Seizures: No Sickle Cell Disease: No Sleep Apnea: No Thyroid Disease: No Ulcer: No Tetanus Vaccination: < 5 Years Influenza Vaccination: Yes PNEUMOCCOCAL Vaccine (Year): 2 Past Surgical History Abdominal Surgery: No AICD: No Arteriovenous Shunt: No Cardiac Surgery: No Ear Surgery: No Endocrine Surgery: No Eye Surgery: No Genitourinary Surgery: No Gynecologic Surgery: No Insulin Pump: No Joint Replacement: No Neurologic Surgery: Yes (BILATERAL CRANIOTOMY) Oral Surgery: No Pacemaker: No Thoracic Surgery: No Other Surgery: Yes Family History Family Hypercholesterolemia: Yes Social History Alcohol Use: No Tobacco Use: No Substance Use: No Allergies-Medications (Allergen,Severity, Reaction): Coded Allergies: No Known Allergies (Verified Allergy, Unknown, 10/08/17) Reported Meds & Prescriptions Reported Meds & Active Scripts Active Novolog Inj (Insulin Aspart) 1,000 Unit/10 Ml Vial 1-9 Units SQ ACHS Max dose at bedtime:( )units; sugars less than 70,(0)units; sugars 150-199,(1) unit; sugars 200-249,(3) units; sugars 250-299,(5) units; sugars 300-349,(7) units; sugars greater than 349,(9) units Levemir Flextouch Pen Inj (Insulin Detemir) 300 unit/3 ML Pen 10 Units SQ DAILY Aricept (Donepezil HCl) 5 Mg Tablet 2.5 Mg PO DAILY Reported Phenytoin Extended 200 Mg Cap 200 Mg PO BID Glipizide 10 Mg Tab 10 Mg PO DAILY Take 30 minutes before a meal Oxybutynin ER 24 HR (Oxybutynin Chloride) 5 Mg Tab 5 Mg PO BID Centrum Silver (Multiple Vitamins W/ Minerals) 400 Mcg-250 Mcg Chw 1 Tab PO DAILY Zocor (Simvastatin) 40 Mg Tab 40 Mg PO HS Memantine 10 Mg Tab 10 Mg PO BID Omeprazole 20 Mg Tab 20 Mg PO DAILY Review of Systems Except as stated in HPI: all other systems reviewed are Neg Physical Exam Narrative GENERAL: 77yo M not in distress. SKIN: Focused skin assessment warm/dry. HEAD: Atraumatic. Normocephalic. EYES: Pupils equal and round. No scleral icterus. No injection or drainage. ENT: No nasal bleeding or discharge. Mucous membranes pink and moist. NECK: Trachea midline. No JVD. CARDIOVASCULAR: Regular rate and rhythm. No murmur appreciated. RESPIRATORY: No accessory muscle use. Clear to auscultation. Breath sounds equal bilaterally. GASTROINTESTINAL: Abdomen soft, non-tender, nondistended. Hepatic and splenic margins not palpable. MUSCULOSKELETAL: No obvious deformities. No clubbing. No cyanosis. No edema. NEUROLOGICAL: Awake and alert. No obvious cranial nerve deficits. Decreased strength in bilateral lower extremities. Sensation intact. Mild dysarthria. Data Data Last Documented VS Vital Signs Date Time Temp Pulse Resp B/P (MAP) Pulse Ox O2 Delivery O2 Flow Rate FiO2 10/08/17 01:14 98.0 95 20 138/74 (95) 95 Room Air Orders Orders Complete Blood Count With Diff (10/07/17 21:43) Comprehensive Metabolic Panel (10/07/17 21:43) Prothrombin Time / Inr (Pt) (10/07/17 21:43) Act Partial Throm Time (Ptt) (10/07/17 21:43) Urinalysis - C+S If Indicated (10/07/17 21:43) Chest, Pa & Lat (10/07/17 ) Phenytoin (Dilantin) (10/07/17 21:43) Ct Brain W/O Iv Contrast(Rout) (10/07/17 ) Place In Observation (10/08/17 ) Vital Signs (Adult) Q2HX12,Q4H (10/08/17 02:35) Nih Stroke Scale - Nihss .Daily (10/08/17 02:35) Neuro Checks Q2HX12,Q4H (10/08/17 02:35) Notify Dr: Other (10/08/17 02:35) Remove Urinary Catheter .ONCE (10/08/17 02:35) Ot Request For Service (10/08/17 02:35) Pt Request For Service (10/08/17 02:35) Speech Therapy Consult-Eval/Tx (10/08/17 02:35) Case Management Consult (10/08/17 ) Activity Oob Ad Aruna (10/08/17 02:35) Nursing Bedside Swallow Assess .ONCE (10/08/17 02:35) Scd Bilateral/Knee High ATUL.QSHIFT (10/08/17 02:35) Hemoglobin (Hgb) A1c (10/08/17 02:35) Lipid Profile (10/09/17 06:00) ^ Hold Medication (10/08/17 02:35) Sodium Chloride 0.9% Flush (Ns Flush) (10/08/17 09:00) Sodium Chloride 0.9% Flush (Ns Flush) (10/08/17 02:45) ^ Discontinue Insulin Orders (10/08/17 02:35) Dextrose 50% In [place] (Vial) Inj (D50w (Vi (10/08/17 02:45) Glucagon Inj (Glucagon Inj) (10/08/17 02:45) Contour Path Tape Mill Operator / Telemetry ATUL.Q8H (10/08/17 02:35) Consult Stroke Navigator (10/08/17 ) Admit Order (Ed Use Only) (10/08/17 02:44) Labs Laboratory Tests Test 10/07/17 20:25 10/07/17 22:05 White Blood Count 15.7 TH/MM3 Red Blood Count 5.06 MIL/MM3 Hemoglobin 14.7 GM/DL Hematocrit 43.4 % Mean Corpuscular Volume 85.8 FL Mean Corpuscular Hemoglobin 29.0 PG Mean Corpuscular Hemoglobin Concent 33.9 % Red Cell Distribution Width 15.4 % Platelet Count 232 TH/MM3 Mean Platelet Volume 8.3 FL Neutrophils (%) (Auto) 77.6 % Lymphocytes (%) (Auto) 13.1 % Monocytes (%) (Auto) 8.6 % Eosinophils (%) (Auto) 0.4 % Basophils (%) (Auto) 0.3 % Neutrophils # (Auto) 12.2 TH/MM3 Lymphocytes # (Auto) 2.1 TH/MM3 Monocytes # (Auto) 1.4 TH/MM3 Eosinophils # (Auto) 0.1 TH/MM3 Basophils # (Auto) 0.0 TH/MM3 CBC Comment DIFF FINAL Differential Comment Prothrombin Time 10.2 SEC Prothromb Time International Ratio 1.0 RATIO Activated Partial Thromboplast Time 22.2 SEC Blood Urea Nitrogen 12 MG/DL Creatinine 1.34 MG/DL Random Glucose 230 MG/DL Total Protein 7.9 GM/DL Albumin 3.4 GM/DL Calcium Level 8.5 MG/DL Alkaline Phosphatase 131 U/L Aspartate Amino Transf (AST/SGOT) 14 U/L Alanine Aminotransferase (ALT/SGPT) 20 U/L Total Bilirubin 0.3 MG/DL Sodium Level 136 MEQ/L Potassium Level 3.7 MEQ/L Chloride Level 103 MEQ/L Carbon Dioxide Level 24.1 MEQ/L Anion Gap 9 MEQ/L Estimat Glomerular Filtration Rate 63 ML/MIN Phenytoin (Dilantin) Level 20.1 MCG/ML MDM Medical Decision Making Medical Screen Exam Complete: Yes Emergency Medical Condition: Yes Differential Diagnosis CVA vs. worsening dementia vs. electrolyte abnormality vs. delirium Narrative Course 77yo M was brought in by family for worsening weakness and now he is unable to walk because of the weakness. Said he couldnt walk by himself for 2 days. Also said he has slurred speech and it is not normal for him. Labs reviewed, mild leukocytosis at 15.7. Creatinine mildly increased at 1.34. Phenytoin level slightly elevated at 20.1. UA negative. CXR showed minimal atelectasis at left base. CT brain showed no acute intracranial abnormality demonstrated. Chronic bifrontal cystic hygromas unchanged. Previous craniotomy. Discussed with Dr. Ellis and accepted to her service. Diagnosis Primary Impression: CVA (cerebral vascular accident) Qualified Codes: I63.9 - Cerebral infarction, unspecified Admitting Information Admitting Physician Requests: Ana Liu DO Oct 08, 2017 01:28
[2017-10-08] MEDS ORDERED: GLUCAGON 1 MG/ML VIAL OTHER PRN (02:45)
[2017-10-08] MEDS ORDERED: DEXTROSE 50% IN WATER 50 ML VIAL(D50) IV PUSH PRN (02:45)
[2017-10-08] MEDS ORDERED: SODIUM CHLORIDE 0.9% FLUSH 10 ML FLUSH IV FLUSH PRN (02:45)
[2017-10-08] MEDS ORDERED: SODIUM CHLORID 0.9% 500 ML INJ 500 ML IV ONE (03:00)
--- NOTE | 2017-10-08 04:09 | HHI.HP ---
HPI Service [facility] Primary Care Physician Manjit Jiménez MD Admission Diagnosis Slurred speech, weakness Diagnoses: Chief Complaint: weakness Travel History International Travel<30 Days: No Contact w/Intl Traveler <30 Da: No Traveled to Known Affected Are: No History of Present Illness 77 y/o male with a history of dementia, HLD, seizures, subdural hemorrhage s/p evacuation was brought to the ED with complaints of generalized weakness. Patient is a poor historian but the and daughter are at the bedside to answer questions. Patient is very sleepy and does open eyes but does not want to questions at this time. Per the family for the past few weeks the patient has been experiencing difficulty walking, generalized weakness and slurred speech with increased mumbling. Patient was seen in the ED on 10/01 for altered mental status questionable seizure and his Dilantin level was increased to 200 mg in a.m. and 300 mg in p.m., but according to the family he followed up with his primary care physician who stated not to increase his Dilantin that much but to keep it at 200 mg in a.m. and in p.m. patient has not been able to follow up with his neurologist Dr. Basilio. Upon examination and is weaker on the left upper and lower extremity but according to family this is not new. Family states patient has not complained of any chest pain, shortness of breath fevers or chills within the last few days. Review of Systems Except as stated in HPI: all other systems reviewed are Neg Past Family Social History Past Medical History dementia HLD seizures subdural hemorrhage s/p evacuation Past Surgical History dayton hole evacuation for subdural hematoma s/p fall Reported Medications Reported Meds & Active Scripts Active Novolog Inj (Insulin Aspart) 1,000 Unit/10 Ml Vial 1-9 Units SQ ACHS Max dose at bedtime:( )units; sugars less than 70,(0)units; sugars 150-199,(1) unit; sugars 200-249,(3) units; sugars 250-299,(5) units; sugars 300-349,(7) units; sugars greater than 349,(9) units Levemir Flextouch Pen Inj (Insulin Detemir) 300 unit/3 ML Pen 10 Units SQ DAILY Aricept (Donepezil HCl) 5 Mg Tablet 2.5 Mg PO DAILY Reported Phenytoin Extended 200 Mg Cap 200 Mg PO BID Glipizide 10 Mg Tab 10 Mg PO DAILY Take 30 minutes before a meal Oxybutynin ER 24 HR (Oxybutynin Chloride) 5 Mg Tab 5 Mg PO BID Centrum Silver (Multiple Vitamins W/ Minerals) 400 Mcg-250 Mcg Chw 1 Tab PO DAILY Zocor (Simvastatin) 40 Mg Tab 40 Mg PO HS Memantine 10 Mg Tab 10 Mg PO BID Omeprazole 20 Mg Tab 20 Mg PO DAILY Allergies: Coded Allergies: No Known Allergies (Verified Allergy, Unknown, 10/08/17) Active Ordered Medications Current Medications Medications (Trade) Dose Ordered Sig/Rylie Route Start Time Stop Time Status Last Admin (NS Flush) 2 ml BID IV FLUSH 10/08/17 09:00 (NS Flush) 2 ml UNSCH PRN IV FLUSH 10/08/17 02:45 (D50w (Vial) Inj) 50 ml UNSCH PRN IV PUSH 10/08/17 02:45 (Glucagon Inj) 1 mg UNSCH PRN OTHER 10/08/17 02:45 Family History Family significant for hypertension Social History Family denies any tobacco, alcohol and illicit drug use. Physical Exam Vital Signs Vital Signs Date Time Temp Pulse Resp B/P (MAP) Pulse Ox O2 Delivery O2 Flow Rate FiO2 10/08/17 03:18 87 20 147/76 (99) 95 Room Air 10/08/17 01:14 98.0 95 20 138/74 (95) 95 Room Air 10/07/17 21:39 99.5 104 20 136/70 (92) 95 Physical Exam GENERAL: This is a well-nourished, well-developed patient, in no apparent distress. SKIN: No rashes, ecchymoses or lesions. Cool and dry. HEAD: Atraumatic. Normocephalic. No temporal or scalp tenderness. EYES: Pupils equal round and reactive. Extraocular motions intact. No scleral icterus. No injection or drainage. ENT: Nose without bleeding, purulent drainage or septal hematoma. Throat without erythema, tonsillar hypertrophy or exudate. Uvula midline. Airway patent. NECK: Trachea midline. No JVD or lymphadenopathy. Supple, nontender, no meningeal signs. CARDIOVASCULAR: Regular rate and rhythm without murmurs, gallops, or rubs. RESPIRATORY: Clear to auscultation. Breath sounds equal bilaterally. No wheezes , rales, or rhonchi. GASTROINTESTINAL: Abdomen soft, non-tender, nondistended. No hepato-splenomegaly , or palpable masses. No guarding. MUSCULOSKELETAL: Extremities without clubbing, cyanosis, or edema. No joint tenderness, effusion, or edema noted. No calf tenderness. Negative Homans sign bilaterally. NEUROLOGICAL: Awake and alert. Cranial nerves II through XII intact. Motor and sensory grossly within normal limits. Five out of 5 muscle strength in all muscle groups. Normal speech. Laboratory Laboratory Tests Test 10/07/17 20:25 10/07/17 22:05 White Blood Count 15.7 Red Blood Count 5.06 Hemoglobin 14.7 Hematocrit 43.4 Mean Corpuscular Volume 85.8 Mean Corpuscular Hemoglobin 29.0 Mean Corpuscular Hemoglobin Concent 33.9 Red Cell Distribution Width 15.4 Platelet Count 232 Mean Platelet Volume 8.3 Neutrophils (%) (Auto) 77.6 Lymphocytes (%) (Auto) 13.1 Monocytes (%) (Auto) 8.6 Eosinophils (%) (Auto) 0.4 Basophils (%) (Auto) 0.3 Neutrophils # (Auto) 12.2 Lymphocytes # (Auto) 2.1 Monocytes # (Auto) 1.4 Eosinophils # (Auto) 0.1 Basophils # (Auto) 0.0 CBC Comment DIFF FINAL Differential Comment Prothrombin Time 10.2 Prothromb Time International Ratio 1.0 Activated Partial Thromboplast Time 22.2 Blood Urea Nitrogen 12 Creatinine 1.34 Random Glucose 230 Total Protein 7.9 Albumin 3.4 Calcium Level 8.5 Alkaline Phosphatase 131 Aspartate Amino Transf (AST/SGOT) 14 Alanine Aminotransferase (ALT/SGPT) 20 Total Bilirubin 0.3 Sodium Level 136 Potassium Level 3.7 Chloride Level 103 Carbon Dioxide Level 24.1 Anion Gap 9 Estimat Glomerular Filtration Rate 63 Phenytoin (Dilantin) Level 20.1 Result Diagram: 10/07/17220410/07/172204 Caprini VTE Risk Assessment Caprini VTE Risk Assessment: Mod/High Risk (score >= 2) Caprini Risk Assessment Model Point Value = 1 Point Value = 2 Point Value = 3 Point Value = 5 Age 41-60 Minor surgery BMI > 25 kg/m2 Swollen legs Varicose veins or History of unexplained or recurrent spontaneous Oral contraceptives or hormone replacement Sepsis (< 1 month) Serious lung disease, including pneumonia (< 1 month) Abnormal pulmonary function Acute myocardial infarction Congestive heart failure (< 1 month) History of inflammatory bowel disease Medical patient at bed rest Age 61-74 Arthroscopic surgery Major open surgery (> 45 min) Laparoscopic surgery (> 45 min) Malignancy Confined to bed (> 72 hours) Immobilizing plaster cast Central venous access Age >= 75 History of VTE Family history of VTE Factor V Leiden Prothrombin [id number] Lupus anticoagulant Anticardiolipin antibodies Elevated serum homocysteine Heparin-induced thrombocytopenia Other congenital or acquired thrombophilia Stroke (< 1 month) Elective arthroplasty Hip, pelvis, or leg fracture Acute spinal cord injury (< 1 month) Prophylaxis Regimen Total Risk Factor Score Risk Level Prophylaxis Regimen 0-1 Low Early ambulation 2 Moderate Order ONE of the following: *Sequential Compression Device (SCD) *Heparin 5000 units SQ BID 3-4 Higher Order ONE of the following medications: *Heparin 5000 units SQ TID *Enoxaparin/Lovenox 40 mg SQ daily (WT < 150 kg, CrCl > 30 mL/min) *Enoxaparin/Lovenox 30 mg SQ daily (WT < 150 kg, CrCl > 10-29 mL/min) *Enoxaparin/Lovenox 30 mg SQ BID (WT < 150 kg, CrCl > 30 mL/min) AND/OR *Sequential Compression Device (SCD) 5 or more Highest Order ONE of the following medications: *Heparin 5000 units SQ TID (Preferred with Epidurals) *Enoxaparin/Lovenox 40 mg SQ daily (WT < 150 kg, CrCl > 30 mL/min) *Enoxaparin/Lovenox 30 mg SQ daily (WT < 150 kg, CrCl > 10-29 mL/min) *Enoxaparin/Lovenox 30 mg SQ BID (WT < 150 kg, CrCl > 30 mL/min) AND *Sequential Compression Device (SCD) Assessment and Plan Problem List: (1) TIA (transient ischemic attack) ICD Code: G45.9 - Transient cerebral ischemic attack, unspecified (2) DM (diabetes mellitus) ICD Code: E11.9 - Diabetes mellitus Status: Chronic (3) Seizure ICD Code: R56.9 - Convulsions Status: Acute Assessment and Plan 77 y/o male with a history of dementia, HLD, seizures, subdural hemorrhage s/p evacuation was brought to the ED with complaints of generalized weakness. TIA, acute Head CT reviewed and shows no acute intracranial abnormality -Consult neurology for recommendations -2-D echo ordered -Carotid ultrasound ordered -MRA/MRI ordered -PT/OT/ST -Neuro checks -Lipid panel ordered Seizures, chronic -Dilantin level elevated 20.1 -Hold Dilantin until evaluated by neurology -Seizure precautions Diabetes, chronic currently elevated Glucose 230 -Accu-Cheks with sliding scale insulin -A1c pending -Hold home PO medication DVT prophylaxis: SCDs Discussed Condition With Patient, patient's and daughter YancyToro jacksonnickolas SMALLS Oct 08, 2017 04:09
[2017-10-08] MEDS: SODIUM CHLORIDE 0.9% FLUSH 10 ML FLUSH IV FLUSH SCH ×2 (09:00→20:28)
--- NOTE | 2017-10-08 09:51 | RADRPT ---
EXAM DATE/TIME: 10/08/2017 09:00 [facility] COMPARISON: US CAROTID ARTERIES, April 30, 2017, 10:45. INDICATIONS : Transient ischemic attack. MEDICAL HISTORY : Hypertension. Gastroesophageal reflux disease. Dementia. Alzheimer's disease. head trama. coronary artery disease. SURGICAL HISTORY : Craniotomy. Cardiac catheterization. ENCOUNTER: Initial ACUITY: 1 day PAIN SCORE: 0/10 LOCATION: Bilateral neck PEAK SYSTOLIC VELOCITIES (cm/sec): ICA/CCA RATIO: Right: 0.7 Left: 0.6 ICA: Right: 88 Left: 76 CCA: Right: 125 Left: 116 ECA: Right: 80 Left: 82 VERTEBRAL: Right: 48 antegrade Left: 83 antegrade Elevated flow velocities and ICA/CCA ratios have been found to correlate with increased degrees of vessel stenosis, calculated as percentage of diameter relative to a normal segment of distal ICA/CCA FINDINGS: RIGHT CAROTID: No significant stenosis is visualized. The waveforms are within normal limits. LEFT CAROTID: No significant stenosis is visualized. The waveforms are within normal limits. VERTEBRAL ARTERIES: Antegrade flow is seen in both vertebral arteries. MISCELLANEOUS: None. CONCLUSION: 1. No significant carotid flow-limiting stenosis. 2. Antegrade vertebral artery flow bilaterally. Kenny Walker MD on October 08, 2017 at 9:47 Board Certified Radiologist. This report was verified electronically.
[2017-10-08] MEDS: PANTOPRAZOLE SOD 20 MG DELAYED RELEASE TAB PO SCH (10:15)
[2017-10-08] MEDS: DONEPEZIL HCL 5 MG TAB PO SCH (10:15)
[2017-10-08] MEDS: MEMANTINE HCL 10 MG TAB PO SCH ×2 (10:15→20:28)
[2017-10-08] MEDS: TOLTERODINE TARTRATE 4 MG CAP LA PO SCH (10:15)
[2017-10-08] MEDS: INSULIN DETEMIR 100 UNITS/ML VIAL SQ SCH (10:16)
--- NOTE | 2017-10-08 11:00 | MB ---
cc: Bhavin Landers MD DATE OF CONSULT: He is a 77-year-old seen in neurological consultation. His is at bedside and described that the patient had a seizure a couple of years ago when he had a fall and bleeding in the head with some apparent subdural surgery on the left. He had been on Dilantin 100 mg twice a day and never had any problems, but last week, around 10/01, he had a seizure and his Dilantin dose was increased to either 200 mg twice a day or 200 mg in the morning and 300 mg in the evening. He has developed some generalized weakness, has become apparently more confused, and he was brought back to the emergency room. The Dilantin level now is 20.1. He follows with Dr. Davis for neurological course. He evidently has cognitive impairment, as he takes Namenda and donepezil. He is diabetic, on insulin. He is on glipizide, oxybutynin, Zocor, omeprazole. Exam shows the patient to be awake, relatively quiet, verbalized very little, and seemed confused. He was eating and at some point started eating the butter by itself. He was cooperative and at some point answered "41" for his age. He is not clearly aware of the place and has no complaints and only says he was feeling fine. He moves all 4 extremities. There is some probable mild generalized weakness. Difficult to perceive any obvious lateralized weakness. He was able to raise lower extremities and upper extremities. Ancillary data includes CT brain showing no acute intracranial abnormality, prominent ventricles are unchanged, and bifrontal hygromas and previous craniotomy. Carotid ultrasound showed no significant disease. WBC 15.7. Dilantin as above. Sodium, potassium normal. Creatinine 1.34. Glucose 230. BUN normal. ASSESSMENT: Recent seizure recurrence. Apparently, the initial seizure was a couple of years ago when he had some intracranial bleed from a fall and surgery. His Dilantin level at this time is 20.1. The patient also has dementia. He has developed some generalized weakness and worsening of his cognition. In part, this may be from a higher Dilantin level, but want to have an MRI done if possible to be sure there is no other cerebrovascular event to explain his neurological decline. We will request an EEG as well to be sure there are no ongoing seizures. Depending upon all of this, we might make some mild reduction in Dilantin dosage for him to be discharged. I will follow the neurological course while he is in the hospital and as outpatient, he will follow with Dr. Davis. Thank you for asking us to assist in his care. Bhavin Landers MD OFC/TI , 10:48 AM , 10:59 AM
--- NOTE | 2017-10-08 11:25 | RADRPT ---
EXAM DATE/TIME: 10/08/2017 10:39 [facility] COMPARISON: No previous studies available for comparison. INDICATIONS : Altered mental status. MEDICAL HISTORY : Gastroesophageal reflux disease. Diabetes mellitus type 2. Seizures. HYPERTESION SURGICAL HISTORY : Craniotomy. ENCOUNTER: Subsequent ACUITY: 2 day PAIN SCORE: 0/10 LOCATION: cranial Please note a normal MRA of the brain does not entirely exclude the possibility of a small aneurysm, nor the possibility of distal intracranial vessel disease. TECHNIQUE: 3D time of flight MRA was performed. Source images, multiplanar STS MIP, and 3D volume MIP reconstru ctions were reviewed. FINDINGS: Examination somewhat limited due to patient motion. Anterior circulation: Distal intracranial internal carotid arteries are patent with flow extending to the middle and anteri or cerebral arteries. There is no evidence for aneurysm, vessel truncation or stenosis, and no eviden ce for vascular malformation. Posterior circulation: Symmetric distal vertebral arteries with flow extending to basilar artery. There is no evidence for aneurysm, vessel truncation or stenosis, and no evidence for vascular malformation. CONCLUSION: 1. Limited exam due to patient motion. 2. No evidence for large vessel occlusion, significant aneurysm or vascular malformation. Kenny Walker MD on October 08, 2017 at 11:19 Board Certified Radiologist. This report was verified electronically.
--- NOTE | 2017-10-08 11:35 | RADRPT ---
EXAM DATE/TIME: 10/08/2017 10:39 [place] COMPARISON: CT BRAIN W/O CONTRAST, October 07, 2017, 22:11. MRI BRAIN W/O CONTRAST, April 29, 2017, 21:37. INDICATIONS : Altered mental status. MEDICAL HISTORY : Seizures. Diabetes mellitus type 2. Gastroesophageal reflux disease. HYPERTENSION SURGICAL HISTORY : Craniotomy. ENCOUNTER: Subsequent ACUITY: 2 day PAIN SCORE: 0/10 LOCATION: cranial TECHNIQUE: Multiplanar, multisequence MRI of the brain was performed without contrast. FINDINGS: CEREBRUM: Mild to moderate diffuse cerebral atrophy. Ventricles are stable in size and in the upper limits of n ormal given degree of atrophy. Redemonstration of bilateral anterior frontal extra-axial fluid collec tions measuring 9 mm on the right and 4 mm on the left. Stable flair and T2 signal prolongation in th e medial left frontal lobe, likely secondary to old contusions or injury. No evidence of midline shif t, new mass lesion, hemorrhage or acute infarction. The pituitary gland and suprasellar cistern are normal in configuration. WHITE MATTER: No significant signal abnormalities are seen in the white matter. POSTERIOR FOSSA: The cerebellum and brainstem are intact. The 4th ventricle is midline. The cerebellopontine angle is unremarkable. The cerebellar tonsils are normal in position. DIFFUSION IMAGING: No focal areas of restricted diffusion are seen. No evidence of acute infarction. EXTRACRANIAL: Stable postsurgical features of bilateral frontoparietal craniotomies. CONCLUSION: 1. Stable 9 mm right and 4 mm left frontal hygromas. 2. Stable postsurgical features with stable probable old insult in the medial left frontal lobe. 3. No acute abnormality or significant interval change. Kenny Walker MD on October 08, 2017 at 11:25 Board Certified Radiologist. This report was verified electronically.
--- NOTE | 2017-10-08 16:44 | HHI.PR ---
Subjective Remarks Follow-up visit Dilantin toxicity, seizure disorder, dementia. Patient seen and examined today. Awake and alert. Oriented to self, and date of . Otherwise does not know where he is at or the date or current year. Denies pain and discomfort. Denies SOB/ dyspnea. Denies chest pain, palpitations, headaches, dizziness. Denies fevers, chills, n/v/d. Objective Vitals Vital Signs Date Time Temp Pulse Resp B/P (MAP) Pulse Ox O2 Delivery O2 Flow Rate FiO2 10/08/17 16:02 98.9 97 20 125/71 (89) 94 10/08/17 15:39 97.7 68 20 141/72 (95) 10/08/17 12:22 98.1 90 15 130/73 (92) 95 10/08/17 08:55 73 16 121/73 (89) 95 10/08/17 08:05 89 17 128/71 (90) 96 Room Air 10/08/17 06:35 82 20 112/70 (84) 96 Room Air 10/08/17 03:18 87 20 147/76 (99) 95 Room Air 10/08/17 01:14 98.0 95 20 138/74 (95) 95 Room Air 10/07/17 21:39 99.5 104 20 136/70 (92) 95 I/O 10/07/17 10/07/17 10/07/17 10/08/17 10/08/17 10/08/17 07:00 15:00 23:00 07:00 15:00 23:00 Intake Total 500.00 ml Balance 500.00 ml IV Total 500.00 ml # Voids 1 Result Diagram: 10/07/17220410/07/172204 Imaging Last Impressions Head Magnetic Resonance Angiography 10/08/17 0000 Signed Impressions: Service Date/Time: Sunday, October 08, 2017 10:39 - CONCLUSION: 1. Limited exam due to patient motion. 2. No evidence for large vessel occlusion, significant aneurysm or vascular malformation. Kenny Walker MD Carotid Artery Ultrasound 10/08/17 0000 Signed Impressions: Service Date/Time: Sunday, October 08, 2017 09:00 - CONCLUSION: 1. No significant carotid flow-limiting stenosis. 2. Antegrade vertebral artery flow bilaterally. Kenny Walker MD Brain MRI 10/08/17 0000 Signed Impressions: Service Date/Time: Sunday, October 08, 2017 10:39 - CONCLUSION: 1. Stable 9 mm right and 4 mm left frontal hygromas. 2. Stable postsurgical features with stable probable old insult in the medial left frontal lobe. 3. No acute abnormality or significant interval change. Kenny Walker MD Head CT 10/07/17 0000 Signed Impressions: Service Date/Time: Saturday, October 07, 2017 22:11 - CONCLUSION: 1. No acute intracranial abnormality demonstrated. 2. Patchy and prominent ventricles unchanged. 3. Chronic bifrontal cystic hygromas unchanged. 4. Previous craniotomy. Baldev Ayala MD Chest X-Ray 10/07/17 0000 Signed Impressions: Service Date/Time: Saturday, October 07, 2017 21:49 - CONCLUSION: Minimal atelectasis at the left base. Chronically elevated left hemidiaphragm. Baldev Ayala MD Objective Remarks GENERAL: This is a well-nourished, well-developed patient, in no apparent distress. SKIN: Warm and dry. HEENT: Normocephalic. Pupils equal round and reactive. Nose without bleeding. Airway patent. NECK: Trachea midline. CARDIOVASCULAR: Regular rate and rhythm without murmurs, gallops, or rubs. RESPIRATORY: Diminished bases. No wheezes, rales, or rhonchi. GASTROINTESTINAL: Abdomen soft, non-tender, nondistended. Bowel Sounds normoactive x4. MUSCULOSKELETAL: Extremities without clubbing, cyanosis, or edema. NEUROLOGICAL: Awake and alert. Oriented to person. Moves all extremities. Normal speech. A/P Problem List: (1) TIA (transient ischemic attack) ICD Code: G45.9 - Transient cerebral ischemic attack, unspecified (2) DM (diabetes mellitus) ICD Code: E11.9 - Diabetes mellitus Status: Chronic (3) Seizure ICD Code: R56.9 - Convulsions Status: Acute Assessment and Plan 77 y/o male with a history of dementia, HLD, seizures, subdural hemorrhage s/p evacuation was brought to the ED with complaints of generalized weakness. TIA, acute Head CT reviewed and shows no acute intracranial abnormality -Consult neurology for recommendations. EEG recommendation, may make adjustment on Dilantin dose depending on diagnostic results -2-D echo ordered -Carotid ultrasound no significant carotid flow limiting stenosis. 2. Antegrade vertebral artery flow bilaterally. -MRA showed 1. Limited exam due to patient motion. 2. No evidence of large vessel occlusion, significant aneurysm or vascular malformation -MRI showed 1. Stable 9 mm right and 4 mm left frontal hygromas. 2. Stable postsurgical features with stable probable old insult in the medial left frontal lobe. 3. No acute abnormality or significant interval change. -PT/OT/ST eval and treat. Recommends PT for rehab. Speech therapy recommends regular and thin liquids. OT recommendation for rehab. -Neuro checks -Lipid panel ordered Dilantin toxicity Seizures, chronic -Came in to hospital lethargic, difficulty walking, generalized weakness and slurred speech. -Dilantin level elevated 20.1 -Hold Dilantin until evaluated by neurology. Adjustments with dose depending on neurologist. -Seizure precautions -Repeat Dilantin level Diabetes, chronic currently elevated Glucose 230 -Accu-Cheks with sliding scale insulin -A1c pending -Hold home PO medication DVT prophylaxis: Joelle Corado Oct 08, 2017 16:44
--- NOTE | 2017-10-08 18:21 | MG ---
cc: Toño Davis MD, Mandeep MD EEG NUMBER #[id number] INDICATIONS: A 77-year-old, history of dementia, seizures, confusion. INTERPRETATION: A 4-5 Hz posterior rhythm with admixed 2-3 Hz delta activity, 20-50 microvolts, appearance of sleep state. Chewing artifact occurring off and on. The appearance of stage I sleep. Increment of posterior rhythm 6-8 Hz during arousals. Mild focus following tiny sharp transients, phase reversal, C4, epoch 91. Tiny phase reversal, C4, epoch 107. Limited driving photic stimulation. Single lead EKG showing sinus rhythm. IMPRESSION: Mild nonspecific changes, right frontocentral region, minimal encephalopathy in sleep state. Clinical correlation. MD LIDIA Smith//ilana , 06:05 PM , 06:14 PM
[2017-10-08] MEDS: PRAVASTATIN SOD 80 MG TAB PO SCH (20:28)
[2017-10-09] VITALS (10 sets, daily range): BP systolic 110–134; BP diastolic 69–79; PULSE 55–112; RESP 16–20; TEMP 97.4–100.8; O2SAT 95–100
--- NOTE | 2017-10-09 08:20 | HHI.PR ---
Subjective Remarks In bed he appears in no acute distress. Feels much better family at bedside his . Speech is back to normal. No new motor or sensory deficit. PT recommends rehab. Patient is discharged to rehab. Cleared by neurology. Dilantin back to normal Objective Vitals Vital Signs Date Time Temp Pulse Resp B/P (MAP) Pulse Ox O2 Delivery O2 Flow Rate FiO2 10/09/17 05:05 97.4 88 16 126/76 (93) 98 10/09/17 03:45 94 10/09/17 00:27 99.3 55 18 134/79 (97) 98 10/08/17 22:47 100.5 103 17 120/68 (85) 95 10/08/17 20:28 98.5 10/08/17 16:56 98.8 99 18 114/69 (84) 95 10/08/17 16:02 98.9 97 20 125/71 (89) 94 10/08/17 15:39 97.7 68 20 141/72 (95) 10/08/17 12:22 98.1 90 15 130/73 (92) 95 10/08/17 08:55 73 16 121/73 (89) 95 I/O 10/08/17 10/08/17 10/08/17 10/09/17 10/09/17 10/09/17 07:00 15:00 23:00 07:00 15:00 23:00 Intake Total 500.00 ml 175 ml Balance 500.00 ml 175 ml Intake Oral 175 ml IV Total 500.00 ml # Voids 1 Result Diagram: 10/07/17220410/07/172204 Imaging Last Impressions Head Magnetic Resonance Angiography 10/08/17 0000 Signed Impressions: Service Date/Time: Sunday, October 08, 2017 10:39 - CONCLUSION: 1. Limited exam due to patient motion. 2. No evidence for large vessel occlusion, significant aneurysm or vascular malformation. Kenny Walker MD Carotid Artery Ultrasound 10/08/17 0000 Signed Impressions: Service Date/Time: Sunday, October 08, 2017 09:00 - CONCLUSION: 1. No significant carotid flow-limiting stenosis. 2. Antegrade vertebral artery flow bilaterally. Kenny Walker MD Brain MRI 10/08/17 0000 Signed Impressions: Service Date/Time: Sunday, October 08, 2017 10:39 - CONCLUSION: 1. Stable 9 mm right and 4 mm left frontal hygromas. 2. Stable postsurgical features with stable probable old insult in the medial left frontal lobe. 3. No acute abnormality or significant interval change. Kenny Walker MD Head CT 10/07/17 0000 Signed Impressions: Service Date/Time: Saturday, October 07, 2017 22:11 - CONCLUSION: 1. No acute intracranial abnormality demonstrated. 2. Patchy and prominent ventricles unchanged. 3. Chronic bifrontal cystic hygromas unchanged. 4. Previous craniotomy. Baldev Ayala MD Chest X-Ray 10/07/17 0000 Signed Impressions: Service Date/Time: Saturday, October 07, 2017 21:49 - CONCLUSION: Minimal atelectasis at the left base. Chronically elevated left hemidiaphragm. Baldev Ayala MD Objective Remarks GENERAL: This is a well-nourished, well-developed patient, in no apparent distress. SKIN: Warm and dry. HEENT: Normocephalic. Pupils equal round and reactive. Nose without bleeding. Airway patent. NECK: Trachea midline. CARDIOVASCULAR: Regular rate and rhythm without murmurs, gallops, or rubs. RESPIRATORY: Diminished bases. No wheezes, rales, or rhonchi. GASTROINTESTINAL: Abdomen soft, non-tender, nondistended. Bowel Sounds normoactive x4. MUSCULOSKELETAL: Extremities without clubbing, cyanosis, or edema. NEUROLOGICAL: Awake and alert. Oriented to person. Moves all extremities. Normal speech. A/P Problem List: (1) TIA (transient ischemic attack) ICD Code: G45.9 - Transient cerebral ischemic attack, unspecified (2) DM (diabetes mellitus) ICD Code: E11.9 - Diabetes mellitus Status: Chronic (3) Seizure ICD Code: R56.9 - Convulsions Status: Acute Assessment and Plan 77 y/o male with a history of dementia, HLD, seizures, subdural hemorrhage s/p evacuation was brought to the ED with complaints of generalized weakness. TIA, acute Head CT reviewed and shows no acute intracranial abnormality Consult neurology for recommendations. EEG recommendation, may make adjustment on Dilantin dose depending on diagnostic results 2-D echo ordered Carotid ultrasound no significant carotid flow limiting stenosis. 2. Antegrade vertebral artery flow bilaterally. MRA showed 1. Limited exam due to patient motion. 2. No evidence of large vessel occlusion, significant aneurysm or vascular malformation MRI showed 1. Stable 9 mm right and 4 mm left frontal hygromas. 2. Stable postsurgical features with stable probable old insult in the medial left frontal lobe. 3. No acute abnormality or significant interval change. PT/OT/ST eval and treat. Recommends PT for rehab. Speech therapy recommends regular and thin liquids. OT recommendation for rehab. Neuro checks Lipid panel reviewed Dilantin toxicity Seizures, chronic Came in to hospital lethargic, difficulty walking, generalized weakness and slurred speech. Dilantin level elevated 20.1 Hold Dilantin until evaluated by neurology. Adjustments with dose per neurology half of phenytoin 100 mg morning and 200 mg phenytoin at night. Seizure precautions Repeat Dilantin level Diabetes, chronic currently elevated Glucose 230 Accu-Cheks with sliding scale insulin A1c 7 home PO medication resume at discharge DVT prophylaxis: SCDs Patient improved, Dilantin back to normal. She is discharged to long term facility in stable condition to follow-up with PCP and consultants as outpatient. Juana Gutierrez MD Oct 09, 2017 08:20
--- NOTE | 2017-10-09 09:16 | HHI.DS ---
Discharge Summary Admission Date Oct 08, 2017 at 16:44 Discharge Date: Oct 14, 2017 Admitting Diagnosis Slurred speech, weakness (1) TIA (transient ischemic attack) ICD Code: G45.9 - Transient cerebral ischemic attack, unspecified (2) DM (diabetes mellitus) ICD Code: E11.9 - Diabetes mellitus Status: Chronic (3) Seizure ICD Code: R56.9 - Convulsions Status: Acute Procedures none Brief History - From Admission 77 y/o male with a history of dementia, HLD, seizures, subdural hemorrhage s/p evacuation was brought to the ED with complaints of generalized weakness. Patient is a poor historian but the and daughter are at the bedside to answer questions. Patient is very sleepy and does open eyes but does not want to questions at this time. Per the family for the past few weeks the patient has been experiencing difficulty walking, generalized weakness and slurred speech with increased mumbling. Patient was seen in the ED on 10/01 for altered mental status questionable seizure and his Dilantin level was increased to 200 mg in a.m. and 300 mg in p.m., but according to the family he followed up with his primary care physician who stated not to increase his Dilantin that much but to keep it at 200 mg in a.m. and in p.m. patient has not been able to follow up with his neurologist Dr. Basilio. Upon examination and is weaker on the left upper and lower extremity but according to family this is not new. Family states patient has not complained of any chest pain, shortness of breath fevers or chills within the last few days. CBC/BMP: 10/07/17220410/07/172204 Significant Findings Laboratory Tests Test 10/07/17 20:25 10/07/17 22:05 Hemoglobin A1c 7.0 % (4.3-6.0) White Blood Count 15.7 TH/MM3 (4.0-11.0) Neutrophils (%) (Auto) 77.6 % (16.0-70.0) Monocytes (%) (Auto) 8.6 % (0.0-8.0) Neutrophils # (Auto) 12.2 TH/MM3 (1.8-7.7) Monocytes # (Auto) 1.4 TH/MM3 (0-0.9) Activated Partial Thromboplast Time 22.2 SEC (24.3-30.1) Creatinine 1.34 MG/DL (0.60-1.30) Random Glucose 230 MG/DL (74-106) Alkaline Phosphatase 131 U/L (45-117) Aspartate Amino Transf (AST/SGOT) 14 U/L (15-37) Estimat Glomerular Filtration Rate 63 ML/MIN (>89) Phenytoin (Dilantin) Level 20.1 MCG/ML (10.0-20.0) Imaging Last Impressions Chest X-Ray 10/10/17 0000 Signed Impressions: Service Date/Time: September 08:43 - CONCLUSION: 1. Chronic elevation of the left hemidiaphragm with associated left lung base atelectasis/scarring. 2. No acute abnormality or significant interval change. Kenny Walker MD Head Magnetic Resonance Angiography 10/08/17 0000 Signed Impressions: Service Date/Time: Sunday, October 08, 2017 10:39 - CONCLUSION: 1. Limited exam due to patient motion. 2. No evidence for large vessel occlusion, significant aneurysm or vascular malformation. Kenny Walker MD Carotid Artery Ultrasound 10/08/17 0000 Signed Impressions: Service Date/Time: Sunday, October 08, 2017 09:00 - CONCLUSION: 1. No significant carotid flow-limiting stenosis. 2. Antegrade vertebral artery flow bilaterally. Kenny Walker MD Brain MRI 10/08/17 0000 Signed Impressions: Service Date/Time: Sunday, October 08, 2017 10:39 - CONCLUSION: 1. Stable 9 mm right and 4 mm left frontal hygromas. 2. Stable postsurgical features with stable probable old insult in the medial left frontal lobe. 3. No acute abnormality or significant interval change. Kenny Walker MD Head CT 10/07/17 0000 Signed Impressions: Service Date/Time: Saturday, October 07, 2017 22:11 - CONCLUSION: 1. No acute intracranial abnormality demonstrated. 2. Patchy and prominent ventricles unchanged. 3. Chronic bifrontal cystic hygromas unchanged. 4. Previous craniotomy. Baldev Ayala MD PE at Discharge GENERAL: This is a well-nourished, well-developed patient, in no apparent distress. SKIN: Warm and dry. HEENT: Normocephalic. Pupils equal round and reactive. Nose without bleeding. Airway patent. NECK: Trachea midline. CARDIOVASCULAR: Regular rate and rhythm without murmurs, gallops, or rubs. RESPIRATORY: Diminished bases. No wheezes, rales, or rhonchi. GASTROINTESTINAL: Abdomen soft, non-tender, nondistended. Bowel Sounds normoactive x4. MUSCULOSKELETAL: Extremities without clubbing, cyanosis, or edema. NEUROLOGICAL: Awake and alert. Oriented to person. Moves all extremities. Normal speech. Hospital Course 77 y/o male with a history of dementia, HLD, seizures, subdural hemorrhage s/p evacuation was brought to the ED with complaints of generalized weakness. Noted on 10/10/17 with acute encephalopathy and sepsis Acute encephalopathy 2/2 sepsis Sepsis. (UTI , fevers, tachycardia on 10/10). No leukocytosis, LA is normal. Blood cx pending. U cx pending monitor. Started on Rocephin. -Urine culture negative. Discontinue antibiotics and monitor. TIA, acute Head CT reviewed and shows no acute intracranial abnormality Consult neurology for recommendations. EEG recommendation, may make adjustment on Dilantin dose depending on diagnostic results 2-D echo with normal EF Carotid ultrasound no significant carotid flow limiting stenosis. 2. Antegrade vertebral artery flow bilaterally. MRA showed 1. Limited exam due to patient motion. 2. No evidence of large vessel occlusion, significant aneurysm or vascular malformation MRI showed 1. Stable 9 mm right and 4 mm left frontal hygromas. 2. Stable postsurgical features with stable probable old insult in the medial left frontal lobe. 3. No acute abnormality or significant interval change. PT/OT/ST eval and treat. Recommends PT for rehab. Speech therapy recommends regular and thin liquids. OT recommendation for rehab. Neuro checks Lipid panel reviewed Dilantin toxicity on admission. Dilantin was on hold. Restarted Dilantin per neurology recommendations. Seizures, chronic Came in to hospital lethargic, difficulty walking, generalized weakness and slurred speech. Dilantin level elevated 20.1 Seizure precautions Follow Dilantin level in a.m. Diabetes, chronic currently elevated Glucose 230 Accu-Cheks with sliding scale insulin A1c 7 home PO medication resume at discharge DVT prophylaxis: SCDs Discharge Planning Need SNF placement. Has gotten much weaker since hospitalization. Case management requesting authorization for SNF. DC to snf to follow up as OP with PCP and consultants Pt Condition on Discharge: Stable Discharge Disposition: Discharge to SNF Discharge Time: > 30 minutes Discharge Instructions DIET: Follow Instructions for: Heart Healthy Diet Activities you can perform: Regular-No Restrictions Follow up Referrals: Neurology - 1 Week with Toño Davis MD New Medications: Phenytoin Extended (Phenytoin Extended) 100 Mg Cap 100 MG PO DAILY for Control Seizures, #90 CAP 0 Refills Phenytoin Extended (Phenytoin Extended) 200 Mg Cap 200 MG PO HS for Control Seizures, #90 CAP 0 Refills Continued Medications: Donepezil HCl (Aricept) 5 Mg Tablet 2.5 MG PO DAILY for dementia, #30 TAB Glipizide (Glipizide) 10 Mg Tab 10 MG PO DAILY for Blood Sugar Management, #30 TAB 0 Refills Take 30 minutes before a meal Insulin Aspart Inj (Novolog Inj) 1,000 Unit/10 Ml Vial 1-9 UNITS SQ ACHS for Blood Sugar Management, #10 ML 0 Refills Max dose at bedtime:( )units; sugars less than 70,(0)units; sugars 150-199,(1) unit; sugars 200-249,(3) units; sugars 250-299,(5) units; sugars 300-349,(7) units; sugars greater than 349,(9) units Insulin Detemir Inj (Levemir Flextouch Pen Inj) 300 unit/3 ML Pen 10 UNITS SQ DAILY for Blood Sugar Management, #5 PEN 0 Refills Memantine (Memantine) 10 Mg Tab 10 MG PO BID for Alzheimer's Dementia, TAB 0 Refills Multiple Vitamins W/ Minerals (Centrum Silver) 400 Mcg-250 Mcg Chw 1 TAB PO DAILY Omeprazole (Omeprazole) 20 Mg Tab 20 MG PO DAILY, #30 TAB 0 Refills Oxybutynin ER 24 HR (Oxybutynin ER 24 HR) 5 Mg Tab 5 MG PO BID for Overactive Bladder, TAB 0 Refills Simvastatin (Zocor) 40 Mg Tab 40 MG PO HS for Cholesterol Management, #30 TAB 0 Refills Discontinued Medications: Phenytoin Extended (Phenytoin Extended) 200 Mg Cap 200 MG PO BID for Control Seizures, #90 CAP 0 Refills Juana Gutierrez MD Oct 09, 2017 09:16
[2017-10-09] MEDS ORDERED: DILA100C PO (09:21)
--- NOTE | 2017-10-09 09:21 | HHI.PR ---
Review/Management Daily Summary 10/09 doing well much better per back to baseline awaiting on dilantin level today to resume dilantin possibly 100 mg am and 200 mg evening Subjective Subjective Comments No acute events reported No headache Active Medications Current Medications Medications (Trade) Dose Ordered Sig/Rylie Route Start Time Stop Time Status Last Admin (NS Flush) 2 ml BID IV FLUSH 10/08/17 09:00 10/08/17 20:28 (NS Flush) 2 ml UNSCH PRN IV FLUSH 10/08/17 02:45 (D50w (Vial) Inj) 50 ml UNSCH PRN IV PUSH 10/08/17 02:45 (Glucagon Inj) 1 mg UNSCH PRN OTHER 10/08/17 02:45 (Aricept) 2.5 mg DAILY PO 10/08/17 09:00 10/08/17 10:15 (Namenda) 10 mg BID PO 10/08/17 09:00 10/08/17 20:28 (Levemir Inj) 10 units DAILY SQ 10/08/17 09:00 10/08/17 10:16 (Protonix) 20 mg DAILY PO 10/08/17 09:00 10/08/17 10:15 (Detrol La) 4 mg DAILY PO 10/08/17 09:00 10/08/17 10:15 (Pravachol) 80 mg HS PO 10/08/17 21:00 10/08/17 20:28 Allergies Allergies Coded Allergies No Known Allergies (Verified Allergy, Unknown, 10/08/17) Review of Systems All other ROS: ROS reviewed as documented in chart Exam I&O / VS Vital Signs Date Time Temp Pulse Resp B/P (MAP) Pulse Ox O2 Delivery O2 Flow Rate FiO2 10/09/17 05:05 97.4 88 16 126/76 (93) 98 10/09/17 03:45 94 10/09/17 00:27 99.3 55 18 134/79 (97) 98 10/08/17 22:47 100.5 103 17 120/68 (85) 95 10/08/17 20:28 98.5 10/08/17 16:56 98.8 99 18 114/69 (84) 95 10/08/17 16:02 98.9 97 20 125/71 (89) 94 10/08/17 15:39 97.7 68 20 141/72 (95) 10/08/17 12:22 98.1 90 15 130/73 (92) 95 General: No acute distress Eye: EOMI Respiratory: Lungs CTA, Non-labored respirations, BS equal Cardiology: Normal rate, Regular Rhythm Musculoskeletal: Swelling Neurologic: Alert Psychiatric: Cooperative, Appropriate mood & affect Objective Radiology Results Last 48 hours Impressions Head Magnetic Resonance Angiography 10/08/17 0000 Signed Impressions: Service Date/Time: Sunday, October 08, 2017 10:39 - CONCLUSION: 1. Limited exam due to patient motion. 2. No evidence for large vessel occlusion, significant aneurysm or vascular malformation. Kenny Walker MD Carotid Artery Ultrasound 10/08/17 0000 Signed Impressions: Service Date/Time: Sunday, October 08, 2017 09:00 - CONCLUSION: 1. No significant carotid flow-limiting stenosis. 2. Antegrade vertebral artery flow bilaterally. Kenny Walker MD Brain MRI 10/08/17 0000 Signed Impressions: Service Date/Time: Sunday, October 08, 2017 10:39 - CONCLUSION: 1. Stable 9 mm right and 4 mm left frontal hygromas. 2. Stable postsurgical features with stable probable old insult in the medial left frontal lobe. 3. No acute abnormality or significant interval change. MD Leesa Castrejon Olimpio F. MD Oct 09, 2017 09:21
[2017-10-09] MEDS: MEMANTINE HCL 10 MG TAB PO SCH ×2 (09:49→20:59)
[2017-10-09] MEDS: INSULIN DETEMIR 100 UNITS/ML VIAL SQ SCH (09:49)
[2017-10-09] MEDS: SODIUM CHLORIDE 0.9% FLUSH 10 ML FLUSH IV FLUSH SCH ×2 (09:49→20:59)
[2017-10-09] MEDS: TOLTERODINE TARTRATE 4 MG CAP LA PO SCH (09:49)
[2017-10-09] MEDS: DONEPEZIL HCL 5 MG TAB PO SCH (09:49)
[2017-10-09] MEDS: PANTOPRAZOLE SOD 20 MG DELAYED RELEASE TAB PO SCH (09:49)
[2017-10-09 10:20] LABS: HEMATOCRIT 42.5 % (39.0-51.0); HEMOGLOBIN 14.4 GM/DL (13.0-17.0); MEAN CELL VOLUME 85.9 FL (80.0-100.0); MEAN CORPUSCULAR HEMOGLOBIN 29.1 PG (27.0-34.0); MEAN CORPUSCULAR HGB CONC 33.9 % (32.0-36.0); MEAN PLATELET VOLUME 7.5 FL (7.0-11.0); PLATELET COUNT 240 TH/MM3 (150-450); RED BLOOD COUNT 4.94 MIL/MM3 (4.50-5.90); RED CELL DISTRIBUTION WIDTH 15.9 % (11.6-17.2); WHITE BLOOD COUNT 11.7 TH/MM3 (4.0-11.0)
[2017-10-09 10:42] LABS: BICARBONATE 28.4 MEQ/L (21.0-32.0); CALCIUM 8.8 MG/DL (8.5-10.1); CREATININE 1.21 MG/DL (0.60-1.30)
[2017-10-09 10:54] LABS: CHOLESTEROL/ HDL RATIO 2.57 RATIO; HDL CHOLESTEROL 55.5 MG/DL (40.0-60.0); PHENYTOIN (DILANTIN) 16.6 MCG/ML (10.0-20.0)
[2017-10-09] MEDS ORDERED: PHEN200C3 PO (15:48)
[2017-10-09] MEDS ORDERED: PHEN100C PO (15:48)
--- NOTE | 2017-10-09 18:16 | ECHRPT ---
Indication: TIA CONCLUSIONS Normal left ventricular size. Wall thickness is normal. The left ventricular systolic function is low normal with an estimated ejection fraction in the rang e of 50- 55%. The right atrial size is mildly dilated. Trace mitral valve regurgitation. There is trace tricuspid valve regurgitation. BP: 130 / 73 HR: 90 Rhythm: Sinus MEASUREMENTS (Male / Female) Normal Values Technical Quality:Fair DOPPLER AV Peak Velocity 120.0 cm/s AV Peak Gradient 5.8 mmHg AV Mean Gradient 3.0 mmHg AV Velocity Time Integral 14.6 cm LVOT Peak Velocity 79.7 cm/s LVOT Peak Gradient 2.5 mmHg LVOT Velocity Time Integral 9.3 cm Mitral E Point Velocity 72.1 cm/s Mitral A Point Velocity 107.0 cm/s Mitral E to A Ratio 0.7 LV E' Lateral Velocity 6.4 cm/s Mitral E to LV E' Lateral Ratio 11.2 LV E' Septal Velocity 4.6 cm/s Mitral E to LV E' Septal Ratio 15.7 PV Peak Velocity 100.0 cm/s PV Peak Gradient 4.0 mmHg FINDINGS LEFT VENTRICLE Normal left ventricular size. Wall thickness is normal. The left ventricular systolic function is low normal with an estimated ejection fraction in the rang e of 50- 55%. RIGHT VENTRICLE Normal right ventricular size and systolic function. LEFT ATRIUM The left atrial size is normal. RIGHT ATRIUM The right atrial size is mildly dilated. ATRIAL SEPTUM The interatrial septum not well visualized. AORTA . The aortic root and proximal ascending aorta are not well visualized. MITRAL VALVE Trace mitral valve regurgitation. AORTIC VALVE Trileaflet aortic valve. No aortic valve stenosis or regurgitation. TRICUSPID VALVE There is trace tricuspid valve regurgitation. PULMONARY VALVE No pulmonary valve regurgitation or stenosis. VESSELS The inferior vena cava is normal in size. PERICARDIUM No pericardial effusion. Alejandro Strange MD, FACC (Electronically Signed) Final Date:09 October 2017 18:15
[2017-10-09] MEDS: PRAVASTATIN SOD 80 MG TAB PO SCH (20:59)
[2017-10-10] VITALS (9 sets, daily range): BP systolic 114–151; BP diastolic 67–89; PULSE 98–114; RESP 16–20; TEMP 98–102.2; O2SAT 95–98
[2017-10-10] MEDS: DONEPEZIL HCL 5 MG TAB PO SCH (08:40)
[2017-10-10] MEDS: PANTOPRAZOLE SOD 20 MG DELAYED RELEASE TAB PO SCH (08:40)
[2017-10-10] MEDS: TOLTERODINE TARTRATE 4 MG CAP LA PO SCH (08:40)
[2017-10-10] MEDS: SODIUM CHLORIDE 0.9% FLUSH 10 ML FLUSH IV FLUSH SCH ×2 (08:40→21:00)
[2017-10-10] MEDS: MEMANTINE HCL 10 MG TAB PO SCH ×2 (08:40→21:47)
--- NOTE | 2017-10-10 09:02 | RADRPT ---
EXAM DATE/TIME: 10/10/2017 08:43 [facility] COMPARISON: CHEST PA & LAT, October 07, 2017, 21:49. CHEST SINGLE AP, October 02, 2017, 1:37. INDICATIONS : Fever. MEDICAL HISTORY : Gastroesophageal reflux disease. Seizures. Encephalopathy. Dementia. Coronary artery disease. SURGICAL HISTORY : Cardiac catherization. ENCOUNTER: Initial ACUITY: 1 day PAIN SCORE: Non-responsive. LOCATION: Bilateral chest FINDINGS: Persistent chronic elevation of the left hemidiaphragm with associated left lower lung zone airspace disease. No new focal pleural or parenchymal opacities. Cardiomediastinal contours are stable. Remain denise of the exam is unchanged. CONCLUSION: 1. Chronic elevation of the left hemidiaphragm with associated left lung base atelectasis/scarring. 2. No acute abnormality or significant interval change. Kenny Walker MD on October 10, 2017 at 8:59 Board Certified Radiologist. This report was verified electronically.
[2017-10-10] MEDS: INSULIN DETEMIR 100 UNITS/ML VIAL SQ SCH (09:03)
[2017-10-10] MEDS: ACETAMINOPHEN 325 MG TAB PO PRN ×2 (09:41→14:11)
[2017-10-10 11:07] LABS: HEMATOCRIT 44.4 % (39.0-51.0); HEMOGLOBIN 15.1 GM/DL (13.0-17.0); MEAN CELL VOLUME 85.2 FL (80.0-100.0); MEAN PLATELET VOLUME 7.7 FL (7.0-11.0); PLATELET COUNT 259 TH/MM3 (150-450); RED CELL DISTRIBUTION WIDTH 15.3 % (11.6-17.2); WHITE BLOOD COUNT 7.7 TH/MM3 (4.0-11.0)
[2017-10-10 11:33] LABS: BICARBONATE 25.2 MEQ/L (21.0-32.0); CALCIUM 8.3 MG/DL (8.5-10.1); CREATININE 1.39 MG/DL (0.60-1.30)
--- NOTE | 2017-10-10 11:40 | HHI.PR ---
Subjective Remarks The patient is noted with fevers in the morning and also noted tachycardic. Family at bedside. He is in bed appears ill, weak voice . Says he has no sob , he is not coughing. No n/v/d/c. feels very weak. With fevers. No seizures. Objective Vitals Vital Signs Date Time Temp Pulse Resp B/P (MAP) Pulse Ox O2 Delivery O2 Flow Rate FiO2 10/10/17 08:12 102.2 114 19 151/78 (102) 95 10/10/17 07:00 111 10/10/17 06:20 98.4 111 18 149/89 (109) 98 10/10/17 04:30 98.4 110 20 139/84 (102) 98 10/10/17 00:00 109 10/09/17 23:05 100.2 109 20 118/75 (89) 97 10/09/17 20:30 98.3 110 20 110/69 (83) 98 10/09/17 18:00 112 10/09/17 17:40 100.8 103 18 128/73 (91) 95 10/09/17 11:54 98.9 103 18 129/74 (92) 95 I/O 10/09/17 10/09/17 10/09/17 10/10/17 10/10/17 10/10/17 07:00 15:00 23:00 07:00 15:00 23:00 Intake Total 240 ml 625 ml 200 ml Balance 240 ml 625 ml 200 ml Intake Oral 240 ml 625 ml 200 ml # Voids 5 3 # Bowel Movements 1 Result Diagram: 10/10/17 1045 10/10/17 1045 Imaging Last Impressions Chest X-Ray 10/10/17 0000 Signed Impressions: Service Date/Time: September 08:43 - CONCLUSION: 1. Chronic elevation of the left hemidiaphragm with associated left lung base atelectasis/scarring. 2. No acute abnormality or significant interval change. Kenny Walker MD Head Magnetic Resonance Angiography 10/08/17 0000 Signed Impressions: Service Date/Time: Sunday, October 08, 2017 10:39 - CONCLUSION: 1. Limited exam due to patient motion. 2. No evidence for large vessel occlusion, significant aneurysm or vascular malformation. Kenny Walker MD Carotid Artery Ultrasound 10/08/17 0000 Signed Impressions: Service Date/Time: Sunday, October 08, 2017 09:00 - CONCLUSION: 1. No significant carotid flow-limiting stenosis. 2. Antegrade vertebral artery flow bilaterally. Kenny Walker MD Brain MRI 10/08/17 0000 Signed Impressions: Service Date/Time: Sunday, October 08, 2017 10:39 - CONCLUSION: 1. Stable 9 mm right and 4 mm left frontal hygromas. 2. Stable postsurgical features with stable probable old insult in the medial left frontal lobe. 3. No acute abnormality or significant interval change. Kenny Walker MD Head CT 10/07/17 0000 Signed Impressions: Service Date/Time: Saturday, October 07, 2017 22:11 - CONCLUSION: 1. No acute intracranial abnormality demonstrated. 2. Patchy and prominent ventricles unchanged. 3. Chronic bifrontal cystic hygromas unchanged. 4. Previous craniotomy. Baldev Ayala MD Objective Remarks GENERAL: This is a well-nourished, well-developed patient, in no apparent distress. SKIN: Warm and dry. HEENT: Normocephalic. Pupils equal round and reactive. Nose without bleeding. Airway patent. NECK: Trachea midline. CARDIOVASCULAR: Regular rate and rhythm without murmurs, gallops, or rubs. RESPIRATORY: Diminished bases. No wheezes, rales, or rhonchi. GASTROINTESTINAL: Abdomen soft, non-tender, nondistended. Bowel Sounds normoactive x4. MUSCULOSKELETAL: Extremities without clubbing, cyanosis, or edema. NEUROLOGICAL: Awake and alert. Oriented to person. Moves all extremities. Normal speech. A/P Problem List: (1) TIA (transient ischemic attack) ICD Code: G45.9 - Transient cerebral ischemic attack, unspecified (2) DM (diabetes mellitus) ICD Code: E11.9 - Diabetes mellitus Status: Chronic (3) Seizure ICD Code: R56.9 - Convulsions Status: Acute Assessment and Plan 77 y/o male with a history of dementia, HLD, seizures, subdural hemorrhage s/p evacuation was brought to the ED with complaints of generalized weakness. noted on 10/10/17 with acute encephalopathy and sepsis Acute encephalopathy 2/2 sepsis Sepsis. (UTI , fevers, tachycardia on 10/10). No leukocytosis, LA is normal. Blood cx pending. U cx pending monitor. Started on Rocephin TIA, acute Head CT reviewed and shows no acute intracranial abnormality Consult neurology for recommendations. EEG recommendation, may make adjustment on Dilantin dose depending on diagnostic results 2-D echo ordered Carotid ultrasound no significant carotid flow limiting stenosis. 2. Antegrade vertebral artery flow bilaterally. MRA showed 1. Limited exam due to patient motion. 2. No evidence of large vessel occlusion, significant aneurysm or vascular malformation MRI showed 1. Stable 9 mm right and 4 mm left frontal hygromas. 2. Stable postsurgical features with stable probable old insult in the medial left frontal lobe. 3. No acute abnormality or significant interval change. PT/OT/ST eval and treat. Recommends PT for rehab. Speech therapy recommends regular and thin liquids. OT recommendation for rehab. Neuro checks Lipid panel reviewed Dilantin toxicity Seizures, chronic Came in to hospital lethargic, difficulty walking, generalized weakness and slurred speech. Dilantin level elevated 20.1 Hold Dilantin until evaluated by neurology. Adjustments with dose per neurology half of phenytoin 100 mg morning and 200 mg phenytoin at night. Seizure precautions Repeat Dilantin level Diabetes, chronic currently elevated Glucose 230 Accu-Cheks with sliding scale insulin A1c 7 home PO medication resume at discharge DVT prophylaxis: SCDs Patient now with sepsis / acute encephalopathy Started on IV abx monitor cultures DC when improved and cleared by consultants Juana Gutierrez MD Oct 10, 2017 11:40
[2017-10-10] MEDS ORDERED: SODIUM CHLOR 0.9% 1000 ML INJ 1,000 ML IV ONE (11:45)
[2017-10-10 12:02] LABS: BACTERIA, URINE MOD /hpf; BILIRUBIN, URINE NEG (NEG); BLOOD, URINE MOD (NEG); GLUCOSE,URINE NEG (NEG); KETONE, URINE NEG (NEG); NITRITE,URINE NEG (NEG); PH, URINE 5.5 (5.0-8.5); SQUAMOUS EPITHELIAL CELL URINE <1 /hpf (0-5); URINE COLOR YELLOW (YELLW/STRAW); URINE LEUKOCYTE ESTERASE TRACE (NEG)
[2017-10-10] MEDS: SODIUM CHLOR 0.9% 1000 ML INJ 1,000 ML IV SCH (14:00)
[2017-10-10] MEDS: cefTRIAXone INJ 1,000 MG in SODIUM CHLORIDE 0.9% INJ 100 ML IV SCH (14:11)
[2017-10-10] MEDS ORDERED: GLUCAGON 1 MG/ML VIAL OTHER PRN (18:15)
[2017-10-10] MEDS ORDERED: DEXTROSE 50% IN WATER 50 ML VIAL(D50) IV PUSH PRN (18:15)
[2017-10-10 19:08] LABS: HEMOGLOBIN A1C 6.9 % (4.3-6.0)
[2017-10-10] MEDS: PHENYTOIN SODIUM 100 MG CAP PO SCH (21:47)
[2017-10-10] MEDS: PRAVASTATIN SOD 80 MG TAB PO SCH (21:47)
[2017-10-10] MEDS: INSULIN ASPART SUPPLEMENTAL SCALE SQ SCH (21:47)
[2017-10-11] VITALS (9 sets, daily range): BP systolic 117–139; BP diastolic 60–76; PULSE 78–100; RESP 16–20; TEMP 97.9–98.9; O2SAT 96–99
[2017-10-11] MEDS: SODIUM CHLOR 0.9% 1000 ML INJ 1,000 ML IV SCH ×2 (05:39→11:35)
[2017-10-11] MEDS: PHENYTOIN SODIUM 100 MG CAP PO SCH ×2 (08:36→21:00)
[2017-10-11] MEDS: PANTOPRAZOLE SOD 20 MG DELAYED RELEASE TAB PO SCH (08:37)
[2017-10-11] MEDS: TOLTERODINE TARTRATE 4 MG CAP LA PO SCH (08:37)
[2017-10-11] MEDS: DONEPEZIL HCL 5 MG TAB PO SCH (08:37)
[2017-10-11] MEDS: MEMANTINE HCL 10 MG TAB PO SCH ×2 (08:37→21:00)
[2017-10-11] MEDS: SODIUM CHLORIDE 0.9% FLUSH 10 ML FLUSH IV FLUSH SCH ×2 (08:38→21:00)
[2017-10-11 09:56] LABS: BICARBONATE 22.8 MEQ/L (21.0-32.0); CALCIUM 8.2 MG/DL (8.5-10.1); CREATININE 1.19 MG/DL (0.60-1.30)
[2017-10-11 09:58] LABS: PHENYTOIN (DILANTIN) 8.2 MCG/ML (10.0-20.0)
[2017-10-11] MEDS: INSULIN DETEMIR 100 UNITS/ML VIAL SQ SCH (10:01)
[2017-10-11] MEDS: INSULIN ASPART SUPPLEMENTAL SCALE SQ SCH ×4 (10:01→21:00)
[2017-10-11 12:49] LABS: AUTOMATED NEUTROPHIL # 4.7 TH/MM3 (1.8-7.7); BASOPHIL % 0.3 % (0.0-2.0); EOSINOPHIL # 0.1 TH/MM3 (0-0.4); EOSINOPHIL % 1.8 % (0.0-4.0); HEMATOCRIT 39.3 % (39.0-51.0); HEMOGLOBIN 13.3 GM/DL (13.0-17.0); LYMPH % 16.2 % (9.0-44.0); LYMPHOCYTE # 1.1 TH/MM3 (1.0-4.8); MEAN CELL VOLUME 86.1 FL (80.0-100.0); MEAN CORPUSCULAR HEMOGLOBIN 29.1 PG (27.0-34.0); MEAN CORPUSCULAR HGB CONC 33.7 % (32.0-36.0); MEAN PLATELET VOLUME 7.4 FL (7.0-11.0); MONO % 14.5 % (0.0-8.0); NEUT % 67.2 % (16.0-70.0); PLATELET COUNT 245 TH/MM3 (150-450); RED BLOOD COUNT 4.57 MIL/MM3 (4.50-5.90); RED CELL DISTRIBUTION WIDTH 15.7 % (11.6-17.2); WHITE BLOOD COUNT 7.1 TH/MM3 (4.0-11.0)
[2017-10-11] MEDS: cefTRIAXone INJ 1,000 MG in SODIUM CHLORIDE 0.9% INJ 100 ML IV SCH (13:09)
--- NOTE | 2017-10-11 16:09 | HHI.PR ---
Review/Management Daily Summary 10/09 doing well much better per back to baseline awaiting on dilantin level today to resume dilantin possibly 100 mg am and 200 mg evening 10/11 no cx when seen early this am no apparent seizure resting and speaking comfortably will follow prn, see dr Davis as outpt Subjective Subjective Comments No acute events reported No headache No chest pain No dyspnea Active Medications Current Medications Medications (Trade) Dose Ordered Sig/Rylie Route Start Time Stop Time Status Last Admin (NS Flush) 2 ml BID IV FLUSH 10/08/17 09:00 10/11/17 08:38 (NS Flush) 2 ml UNSCH PRN IV FLUSH 10/08/17 02:45 (Aricept) 2.5 mg DAILY PO 10/08/17 09:00 10/11/17 08:37 (Namenda) 10 mg BID PO 10/08/17 09:00 10/11/17 08:37 (Levemir Inj) 10 units DAILY SQ 10/08/17 09:00 10/11/17 10:01 (Protonix) 20 mg DAILY PO 10/08/17 09:00 10/11/17 08:37 (Detrol La) 4 mg DAILY PO 10/08/17 09:00 10/11/17 08:37 (Pravachol) 80 mg HS PO 10/08/17 21:00 10/10/17 21:47 (Tylenol) 650 mg Q4H PRN PO 10/10/17 09:15 10/10/17 14:11 Sodium Chloride 1,000 ml @ 84 mls/hr [id number] IV 10/10/17 11:45 10/11/17 05:39 (Dilantin) 100 mg DAILY PO 10/11/17 09:00 10/11/17 08:36 (Dilantin) 200 mg HS PO 10/10/17 21:00 10/10/17 21:47 Ceftriaxone Sodium 1000 mg/ Sodium Chloride 100 ml @ 200 mls/hr Q24H IV 10/10/17 14:00 10/11/17 13:09 (D50w (Vial) Inj) 50 ml UNSCH PRN IV PUSH 10/10/17 18:15 (Glucagon Inj) 1 mg UNSCH PRN OTHER 10/10/17 18:15 (NovoLOG SUPPLEMENTAL SCALE) 1 ACHS SLIDING SCALE SQ 10/10/17 21:00 10/11/17 13:10 Allergies Allergies Coded Allergies No Known Allergies (Verified Allergy, Unknown, 10/08/17) Review of Systems All other ROS: ROS reviewed as documented in chart Exam I&O / VS Vital Signs Date Time Temp Pulse Resp B/P (MAP) Pulse Ox O2 Delivery O2 Flow Rate FiO2 10/11/17 12:35 98.2 78 20 120/60 (80) 96 10/11/17 08:17 87 10/11/17 08:09 97.9 80 20 117/67 (84) 98 10/11/17 03:00 97 10/11/17 01:35 98.0 100 16 139/76 (97) 98 10/10/17 20:08 98.0 98 16 114/73 (87) 98 10/10/17 17:07 101.0 112 18 114/68 (83) 95 General: No acute distress Eye: EOMI Respiratory: Lungs CTA, Non-labored respirations, BS equal Cardiology: Normal rate, Regular Rhythm Musculoskeletal: Swelling Neurologic: Alert Psychiatric: Cooperative, Appropriate mood & affect Objective Micro and Labs Laboratory Tests Test 10/11/17 09:11 10/11/17 12:28 Blood Urea Nitrogen 17 Creatinine 1.19 Random Glucose 194 Calcium Level 8.2 Sodium Level 139 Potassium Level 4.1 Chloride Level 108 Carbon Dioxide Level 22.8 Anion Gap 8 Estimat Glomerular Filtration Rate 72 Lactic Acid Level 1.3 Phenytoin (Dilantin) Level 8.2 White Blood Count 7.1 Red Blood Count 4.57 Hemoglobin 13.3 Hematocrit 39.3 Mean Corpuscular Volume 86.1 Mean Corpuscular Hemoglobin 29.1 Mean Corpuscular Hemoglobin Concent 33.7 Red Cell Distribution Width 15.7 Platelet Count 245 Mean Platelet Volume 7.4 Neutrophils (%) (Auto) 67.2 Lymphocytes (%) (Auto) 16.2 Monocytes (%) (Auto) 14.5 Eosinophils (%) (Auto) 1.8 Basophils (%) (Auto) 0.3 Neutrophils # (Auto) 4.7 Lymphocytes # (Auto) 1.1 Monocytes # (Auto) 1.0 Eosinophils # (Auto) 0.1 Basophils # (Auto) 0.0 CBC Comment DIFF FINAL Differential Comment Date/Time Source Procedure Growth Status 10/10/17 10:45 Blood Peripheral Aerobic Blood Culture - Preliminary NO GROWTH IN 1 DAY Resulted 10/10/17 10:45 Blood Peripheral Anaerobic Blood Culture - Preliminary NO GROWTH IN 1 DAY Resulted 10/10/17 11:00 Urine Clean Catch Urine Culture - Preliminary IMMATURE GROWTH - REINCUBATE Resulted Diagnostic Tests Last 48 hours Impressions Chest X-Ray 10/10/17 0000 Signed Impressions: Service Date/Time: September 08:43 - CONCLUSION: 1. Chronic elevation of the left hemidiaphragm with associated left lung base atelectasis/scarring. 2. No acute abnormality or significant interval change. MD Leesa Castrejon,Bhavin Salomon MD Oct 11, 2017 16:09
--- NOTE | 2017-10-11 19:16 | HHI.PR ---
Subjective Remarks Patient is in the bed, he appears ill. Very soft spoken and sleepy. No seizures. No n/v/d/c. Denies chest pain or sob. No fevers or chills. Objective Vitals Vital Signs Date Time Temp Pulse Resp B/P (MAP) Pulse Ox O2 Delivery O2 Flow Rate FiO2 10/11/17 17:35 90 10/11/17 16:38 98.9 80 20 118/62 (80) 98 10/11/17 12:35 98.2 78 20 120/60 (80) 96 10/11/17 08:17 87 10/11/17 08:09 97.9 80 20 117/67 (84) 98 10/11/17 03:00 97 10/11/17 01:35 98.0 100 16 139/76 (97) 98 10/10/17 20:08 98.0 98 16 114/73 (87) 98 I/O 10/10/17 10/10/17 10/10/17 10/11/17 10/11/17 10/11/17 07:00 15:00 23:00 07:00 15:00 23:00 Intake Total 200 ml 1000 ml Balance 200 ml 1000 ml Intake Oral 200 ml IV Total 1000 ml # Voids 3 5 2 # Bowel Movements 1 1 Result Diagram: 10/11/17 1228 10/11/17 0911 Imaging Last Impressions Chest X-Ray 10/10/17 0000 Signed Impressions: Service Date/Time: September 08:43 - CONCLUSION: 1. Chronic elevation of the left hemidiaphragm with associated left lung base atelectasis/scarring. 2. No acute abnormality or significant interval change. Kenny Walker MD Head Magnetic Resonance Angiography 10/08/17 0000 Signed Impressions: Service Date/Time: Sunday, October 08, 2017 10:39 - CONCLUSION: 1. Limited exam due to patient motion. 2. No evidence for large vessel occlusion, significant aneurysm or vascular malformation. Kenny Walker MD Carotid Artery Ultrasound 10/08/17 0000 Signed Impressions: Service Date/Time: Sunday, October 08, 2017 09:00 - CONCLUSION: 1. No significant carotid flow-limiting stenosis. 2. Antegrade vertebral artery flow bilaterally. Kenny Walker MD Brain MRI 10/08/17 0000 Signed Impressions: Service Date/Time: Sunday, October 08, 2017 10:39 - CONCLUSION: 1. Stable 9 mm right and 4 mm left frontal hygromas. 2. Stable postsurgical features with stable probable old insult in the medial left frontal lobe. 3. No acute abnormality or significant interval change. Kenny Walker MD Head CT 10/07/17 0000 Signed Impressions: Service Date/Time: Saturday, October 07, 2017 22:11 - CONCLUSION: 1. No acute intracranial abnormality demonstrated. 2. Patchy and prominent ventricles unchanged. 3. Chronic bifrontal cystic hygromas unchanged. 4. Previous craniotomy. Baldev Ayala MD Objective Remarks GENERAL: This is a well-nourished, well-developed patient, in no apparent distress. SKIN: Warm and dry. HEENT: Normocephalic. Pupils equal round and reactive. Nose without bleeding. Airway patent. NECK: Trachea midline. CARDIOVASCULAR: Regular rate and rhythm without murmurs, gallops, or rubs. RESPIRATORY: Diminished bases. No wheezes, rales, or rhonchi. GASTROINTESTINAL: Abdomen soft, non-tender, nondistended. Bowel Sounds normoactive x4. MUSCULOSKELETAL: Extremities without clubbing, cyanosis, or edema. NEUROLOGICAL: Awake and alert. Oriented to person. Moves all extremities. Normal speech. A/P Problem List: (1) TIA (transient ischemic attack) ICD Code: G45.9 - Transient cerebral ischemic attack, unspecified (2) DM (diabetes mellitus) ICD Code: E11.9 - Diabetes mellitus Status: Chronic (3) Seizure ICD Code: R56.9 - Convulsions Status: Acute Assessment and Plan 77 y/o male with a history of dementia, HLD, seizures, subdural hemorrhage s/p evacuation was brought to the ED with complaints of generalized weakness. Noted on 10/10/17 with acute encephalopathy and sepsis Acute encephalopathy 2/2 sepsis Sepsis. (UTI , fevers, tachycardia on 10/10). No leukocytosis, LA is normal. Blood cx pending. U cx pending monitor. Started on Rocephin TIA, acute Head CT reviewed and shows no acute intracranial abnormality Consult neurology for recommendations. EEG recommendation, may make adjustment on Dilantin dose depending on diagnostic results 2-D echo ordered Carotid ultrasound no significant carotid flow limiting stenosis. 2. Antegrade vertebral artery flow bilaterally. MRA showed 1. Limited exam due to patient motion. 2. No evidence of large vessel occlusion, significant aneurysm or vascular malformation MRI showed 1. Stable 9 mm right and 4 mm left frontal hygromas. 2. Stable postsurgical features with stable probable old insult in the medial left frontal lobe. 3. No acute abnormality or significant interval change. PT/OT/ST eval and treat. Recommends PT for rehab. Speech therapy recommends regular and thin liquids. OT recommendation for rehab. Neuro checks Lipid panel reviewed Dilantin toxicity Seizures, chronic Came in to hospital lethargic, difficulty walking, generalized weakness and slurred speech. Dilantin level elevated 20.1 Hold Dilantin until evaluated by neurology. Adjustments with dose per neurology half of phenytoin 100 mg morning and 200 mg phenytoin at night. Seizure precautions Repeat Dilantin level Diabetes, chronic currently elevated Glucose 230 Accu-Cheks with sliding scale insulin A1c 7 home PO medication resume at discharge DVT prophylaxis: SCDs Patient now with sepsis / acute encephalopathy Started on IV abx monitor cultures DC when improved and cleared by consultants Juana Gutierrez MD Oct 11, 2017 19:16
[2017-10-11] MEDS: PRAVASTATIN SOD 80 MG TAB PO SCH (21:00)
[2017-10-12] VITALS (12 sets, daily range): BP systolic 118–136; BP diastolic 70–78; PULSE 78–94; RESP 14–20; TEMP 96.8–98.7; O2SAT 95–100
[2017-10-12] MEDS: INSULIN ASPART SUPPLEMENTAL SCALE SQ SCH ×4 (08:00→21:03)
--- NOTE | 2017-10-12 08:44 | HHI.DCPOC ---
Discharge Care Plan Diagnosis: (1) CVA (cerebral vascular accident) (2) Impaired gait (3) Impaired mobility and activities of daily living (4) UTI (urinary tract infection) Your Health Problems Are: Difficulty with ADL Loss of Movements Goals to Promote Your Health * To prevent worsening of your condition and complications * To maintain your health at the optimal level Directions to Meet Your Goals Take your medications as prescribed Follow your dietary instruction Follow activity as directed Keep your appointments as scheduled Take your immunizations and boosters as scheduled If your symptoms worsen call your PCP, if no PCP go to Urgent Care Center or Emergency Room Smoking is Dangerous to Your Health. Avoid second hand smoke Call the 24-hour hour crisis hotline for domestic abuse at Joelle George Oct 12, 2017 08:43
[2017-10-12] MEDS: TOLTERODINE TARTRATE 4 MG CAP LA PO SCH (08:52)
[2017-10-12] MEDS: MEMANTINE HCL 10 MG TAB PO SCH ×2 (08:52→21:02)
[2017-10-12] MEDS: PANTOPRAZOLE SOD 20 MG DELAYED RELEASE TAB PO SCH (08:52)
[2017-10-12] MEDS: PHENYTOIN SODIUM 100 MG CAP PO SCH ×2 (08:52→21:02)
[2017-10-12] MEDS: DONEPEZIL HCL 5 MG TAB PO SCH (08:53)
[2017-10-12] MEDS: SODIUM CHLOR 0.9% 1000 ML INJ 1,000 ML IV SCH ×3 (08:56→23:04)
[2017-10-12] MEDS: SODIUM CHLORIDE 0.9% FLUSH 10 ML FLUSH IV FLUSH SCH ×2 (08:56→21:02)
[2017-10-12] MEDS: INSULIN DETEMIR 100 UNITS/ML VIAL SQ SCH (08:57)
[2017-10-12] MEDS ORDERED: PHENYTOIN SODIUM 100 MG CAP PO ONE (09:15)
--- NOTE | 2017-10-12 09:18 | HHI.PR ---
Subjective Remarks More awake and alert today clinically appears improving today. Family at bedside. No fever or chills overnight. He was noted very obtunded last night however he improved after chest rub applied. He is more awake and alert today. Denies fever or chills no nausea vomiting diarrhea or constipation. Objective Vitals Vital Signs Date Time Temp Pulse Resp B/P (MAP) Pulse Ox O2 Delivery O2 Flow Rate FiO2 10/12/17 07:25 98.7 79 18 118/73 (88) 100 10/12/17 07:07 78 10/12/17 04:27 97.8 85 14 118/71 (87) 98 10/12/17 04:00 84 10/12/17 01:13 96.8 84 16 120/78 (92) 98 10/12/17 00:00 84 10/11/17 20:39 98.0 88 16 128/69 (88) 99 10/11/17 20:00 94 10/11/17 17:35 90 10/11/17 16:38 98.9 80 20 118/62 (80) 98 10/11/17 12:35 98.2 78 20 120/60 (80) 96 I/O 10/11/17 10/11/17 10/11/17 10/12/17 10/12/17 10/12/17 07:00 15:00 23:00 07:00 15:00 23:00 # Voids 2 1 2 # Bowel Movements 1 Result Diagram: 10/11/17 1228 10/11/17 0911 Imaging Last Impressions Chest X-Ray 10/10/17 0000 Signed Impressions: Service Date/Time: September 08:43 - CONCLUSION: 1. Chronic elevation of the left hemidiaphragm with associated left lung base atelectasis/scarring. 2. No acute abnormality or significant interval change. Kenny Walker MD Head Magnetic Resonance Angiography 10/08/17 0000 Signed Impressions: Service Date/Time: Sunday, October 08, 2017 10:39 - CONCLUSION: 1. Limited exam due to patient motion. 2. No evidence for large vessel occlusion, significant aneurysm or vascular malformation. Kenny Walker MD Carotid Artery Ultrasound 10/08/17 0000 Signed Impressions: Service Date/Time: Sunday, October 08, 2017 09:00 - CONCLUSION: 1. No significant carotid flow-limiting stenosis. 2. Antegrade vertebral artery flow bilaterally. Kenny Walker MD Brain MRI 10/08/17 0000 Signed Impressions: Service Date/Time: Sunday, October 08, 2017 10:39 - CONCLUSION: 1. Stable 9 mm right and 4 mm left frontal hygromas. 2. Stable postsurgical features with stable probable old insult in the medial left frontal lobe. 3. No acute abnormality or significant interval change. Kenny Walker MD Head CT 10/07/17 0000 Signed Impressions: Service Date/Time: Saturday, October 07, 2017 22:11 - CONCLUSION: 1. No acute intracranial abnormality demonstrated. 2. Patchy and prominent ventricles unchanged. 3. Chronic bifrontal cystic hygromas unchanged. 4. Previous craniotomy. Baldev Ayala MD Objective Remarks GENERAL: This is a well-nourished, well-developed patient, in no apparent distress. SKIN: Warm and dry. HEENT: Normocephalic. Pupils equal round and reactive. Nose without bleeding. Airway patent. NECK: Trachea midline. CARDIOVASCULAR: Regular rate and rhythm without murmurs, gallops, or rubs. RESPIRATORY: Diminished bases. No wheezes, rales, or rhonchi. GASTROINTESTINAL: Abdomen soft, non-tender, nondistended. Bowel Sounds normoactive x4. MUSCULOSKELETAL: Extremities without clubbing, cyanosis, or edema. NEUROLOGICAL: Awake and alert. Oriented to person. Moves all extremities. Normal speech. A/P Problem List: (1) TIA (transient ischemic attack) ICD Code: G45.9 - Transient cerebral ischemic attack, unspecified (2) DM (diabetes mellitus) ICD Code: E11.9 - Diabetes mellitus Status: Chronic (3) Seizure ICD Code: R56.9 - Convulsions Status: Acute Assessment and Plan 77 y/o male with a history of dementia, HLD, seizures, subdural hemorrhage s/p evacuation was brought to the ED with complaints of generalized weakness. Noted on 10/10/17 with acute encephalopathy and sepsis Acute encephalopathy 2/2 sepsis Sepsis. (UTI , fevers, tachycardia on 10/10). No leukocytosis, LA is normal. Blood cx pending. U cx pending monitor. Started on Rocephin. Urine cultures reviewed and needs for re-incubation TIA, acute Head CT reviewed and shows no acute intracranial abnormality Consult neurology for recommendations. EEG recommendation, may make adjustment on Dilantin dose depending on diagnostic results 2-D echo ordered Carotid ultrasound no significant carotid flow limiting stenosis. 2. Antegrade vertebral artery flow bilaterally. MRA showed 1. Limited exam due to patient motion. 2. No evidence of large vessel occlusion, significant aneurysm or vascular malformation MRI showed 1. Stable 9 mm right and 4 mm left frontal hygromas. 2. Stable postsurgical features with stable probable old insult in the medial left frontal lobe. 3. No acute abnormality or significant interval change. PT/OT/ST eval and treat. Recommends PT for rehab. Speech therapy recommends regular and thin liquids. OT recommendation for rehab. Neuro checks Lipid panel reviewed Dilantin toxicity on admission. Dilantin was on hold. Restart Dilantin per neurology recommendations. Dilantin level today 10/12/17 is therapeutic. We will give extra Dilantin today and will monitor the level tomorrow Seizures, chronic Came in to hospital lethargic, difficulty walking, generalized weakness and slurred speech. Dilantin level elevated 20.1 Hold Dilantin until evaluated by neurology. Adjustments with dose per neurology half of phenytoin 100 mg morning and 200 mg phenytoin at night. Seizure precautions Repeat Dilantin level Diabetes, chronic currently elevated Glucose 230 Accu-Cheks with sliding scale insulin A1c 7 home PO medication resume at discharge DVT prophylaxis: SCDs Patient now with sepsis / acute encephalopathy Started on IV abx monitor cultures DC when improved and cleared by consultants Possible discharge tomorrow if improved, Dilantin level normal normal. Patient is denied to go to sleep. Discussed with patient and the nurse. Discussed with the family. Also discussed with physical therapy for reevaluation. Patient can go home with home health possible tomorrow Juana Gutierrez MD Oct 12, 2017 09:18
[2017-10-12 11:35] LABS: HEMATOCRIT 41.4 % (39.0-51.0); MEAN CORPUSCULAR HEMOGLOBIN 29.4 PG (27.0-34.0); MEAN CORPUSCULAR HGB CONC 33.8 % (32.0-36.0); MEAN PLATELET VOLUME 7.4 FL (7.0-11.0); PLATELET COUNT 217 TH/MM3 (150-450); RED BLOOD COUNT 4.76 MIL/MM3 (4.50-5.90); RED CELL DISTRIBUTION WIDTH 15.8 % (11.6-17.2); WHITE BLOOD COUNT 6.9 TH/MM3 (4.0-11.0)
[2017-10-12 11:48] LABS: BICARBONATE 25.5 MEQ/L (21.0-32.0); CREATININE 0.94 MG/DL (0.60-1.30)
[2017-10-12] MEDS: cefTRIAXone INJ 1,000 MG in SODIUM CHLORIDE 0.9% INJ 100 ML IV SCH (15:09)
[2017-10-12] MEDS: PRAVASTATIN SOD 80 MG TAB PO SCH (21:01)
[2017-10-13] VITALS (9 sets, daily range): BP systolic 108–133; BP diastolic 58–69; PULSE 80–89; RESP 16–18; TEMP 98.1–98.9; O2SAT 94–97
[2017-10-13] MEDS: INSULIN ASPART SUPPLEMENTAL SCALE SQ SCH ×4 (07:27→20:43)
[2017-10-13 07:29] LABS: BICARBONATE 24.6 MEQ/L (21.0-32.0); CALCIUM 8.1 MG/DL (8.5-10.1); CREATININE 1.09 MG/DL (0.60-1.30)
[2017-10-13 07:32] LABS: PHENYTOIN (DILANTIN) 8.3 MCG/ML (10.0-20.0)
[2017-10-13 07:53] LABS: AUTOMATED NEUTROPHIL # 8.1 TH/MM3 (1.8-7.7); BASOPHIL % 0.3 % (0.0-2.0); EOSINOPHIL # 0.2 TH/MM3 (0-0.4); HEMATOCRIT 40.5 % (39.0-51.0); HEMOGLOBIN 13.5 GM/DL (13.0-17.0); LYMPH % 10.6 % (9.0-44.0); LYMPHOCYTE # 1.1 TH/MM3 (1.0-4.8); MEAN CORPUSCULAR HEMOGLOBIN 28.4 PG (27.0-34.0); MEAN CORPUSCULAR HGB CONC 33.5 % (32.0-36.0); MEAN PLATELET VOLUME 7.6 FL (7.0-11.0); MONO % 10.1 % (0.0-8.0); MONOCYTE # 1.1 TH/MM3 (0-0.9); PLATELET COUNT 289 TH/MM3 (150-450); RED BLOOD COUNT 4.77 MIL/MM3 (4.50-5.90); RED CELL DISTRIBUTION WIDTH 15.5 % (11.6-17.2); WHITE BLOOD COUNT 10.5 TH/MM3 (4.0-11.0)
[2017-10-13] MEDS: INSULIN DETEMIR 100 UNITS/ML VIAL SQ SCH (08:38)
[2017-10-13] MEDS: SODIUM CHLORIDE 0.9% FLUSH 10 ML FLUSH IV FLUSH SCH ×2 (08:39→20:43)
[2017-10-13] MEDS: PANTOPRAZOLE SOD 20 MG DELAYED RELEASE TAB PO SCH (08:39)
[2017-10-13] MEDS: DONEPEZIL HCL 5 MG TAB PO SCH (08:39)
[2017-10-13] MEDS: MEMANTINE HCL 10 MG TAB PO SCH ×2 (08:39→20:42)
[2017-10-13] MEDS: TOLTERODINE TARTRATE 4 MG CAP LA PO SCH (08:40)
[2017-10-13] MEDS: PHENYTOIN SODIUM 100 MG CAP PO SCH ×2 (08:40→20:43)
[2017-10-13] MEDS: SODIUM CHLOR 0.9% 1000 ML INJ 1,000 ML IV SCH (08:41)
[2017-10-13] MEDS: cefTRIAXone INJ 1,000 MG in SODIUM CHLORIDE 0.9% INJ 100 ML IV SCH (12:42)
--- NOTE | 2017-10-13 15:40 | HHI.PR ---
Subjective Remarks Patient reports he is doing okay. Discussed with family at bedside. More awake but remains very weak. Objective Vitals Vital Signs Date Time Temp Pulse Resp B/P (MAP) Pulse Ox O2 Delivery O2 Flow Rate FiO2 10/13/17 11:36 98.3 89 18 132/66 (88) 96 10/13/17 08:00 86 10/13/17 07:25 98.4 86 18 133/67 (89) 94 10/13/17 06:35 98.1 85 18 117/61 (79) 97 10/13/17 01:03 98.8 83 18 108/59 (75) 95 10/12/17 23:59 80 10/12/17 20:00 98.6 86 20 128/75 (92) 96 10/12/17 20:00 85 10/12/17 16:20 93 10/12/17 16:06 97.6 88 18 136/70 (92) 95 I/O 10/12/17 10/12/17 10/12/17 10/13/17 10/13/17 10/13/17 07:00 15:00 23:00 07:00 15:00 23:00 Intake Total 1100 ml 100 ml Balance 1100 ml 100 ml IV Total 1100 ml 100 ml # Voids 2 2 3 # Bowel Movements 1 2 Result Diagram: 10/13/17 0612 10/13/17 0612 A/P Problem List: (1) TIA (transient ischemic attack) ICD Code: G45.9 - Transient cerebral ischemic attack, unspecified (2) DM (diabetes mellitus) ICD Code: E11.9 - Diabetes mellitus Status: Chronic (3) Seizure ICD Code: R56.9 - Convulsions Status: Acute Assessment and Plan 77 y/o male with a history of dementia, HLD, seizures, subdural hemorrhage s/p evacuation was brought to the ED with complaints of generalized weakness. Noted on 10/10/17 with acute encephalopathy and sepsis Acute encephalopathy 2/2 sepsis Sepsis. (UTI , fevers, tachycardia on 10/10). No leukocytosis, LA is normal. Blood cx pending. U cx pending monitor. Started on Rocephin. -Urine culture negative. Discontinue antibiotics and monitor. TIA, acute Head CT reviewed and shows no acute intracranial abnormality Consult neurology for recommendations. EEG recommendation, may make adjustment on Dilantin dose depending on diagnostic results 2-D echo ordered Carotid ultrasound no significant carotid flow limiting stenosis. 2. Antegrade vertebral artery flow bilaterally. MRA showed 1. Limited exam due to patient motion. 2. No evidence of large vessel occlusion, significant aneurysm or vascular malformation MRI showed 1. Stable 9 mm right and 4 mm left frontal hygromas. 2. Stable postsurgical features with stable probable old insult in the medial left frontal lobe. 3. No acute abnormality or significant interval change. PT/OT/ST eval and treat. Recommends PT for rehab. Speech therapy recommends regular and thin liquids. OT recommendation for rehab. Neuro checks Lipid panel reviewed Dilantin toxicity on admission. Dilantin was on hold. Restarted Dilantin per neurology recommendations. Seizures, chronic Came in to hospital lethargic, difficulty walking, generalized weakness and slurred speech. Dilantin level elevated 20.1 Seizure precautions Follow Dilantin level in a.m. Diabetes, chronic currently elevated Glucose 230 Accu-Cheks with sliding scale insulin A1c 7 home PO medication resume at discharge DVT prophylaxis: SCDs Discharge Planning Need SNF placement. Has gotten much weaker since hospitalization. Case management requesting authorization for SNF. Erika Angela MD Oct 13, 2017 15:40
[2017-10-13] MEDS: PRAVASTATIN SOD 80 MG TAB PO SCH (20:43)
[2017-10-14] VITALS (7 sets, daily range): BP systolic 113–120; BP diastolic 67–72; PULSE 78–88; RESP 17–18; TEMP 97.9–99.2; O2SAT 96–98
[2017-10-14] MEDS: INSULIN ASPART SUPPLEMENTAL SCALE SQ SCH ×3 (08:00→17:00)
[2017-10-14] MEDS: MEMANTINE HCL 10 MG TAB PO SCH (09:00)
[2017-10-14] MEDS: PANTOPRAZOLE SOD 20 MG DELAYED RELEASE TAB PO SCH (09:00)
[2017-10-14] MEDS: SODIUM CHLORIDE 0.9% FLUSH 10 ML FLUSH IV FLUSH SCH (09:00)
[2017-10-14] MEDS: PHENYTOIN SODIUM 100 MG CAP PO SCH (09:01)
[2017-10-14] MEDS: DONEPEZIL HCL 5 MG TAB PO SCH (09:01)
[2017-10-14] MEDS: INSULIN DETEMIR 100 UNITS/ML VIAL SQ SCH (09:02)
[2017-10-14] MEDS: TOLTERODINE TARTRATE 4 MG CAP LA PO SCH (09:15)
[2017-10-14 09:58] LABS: BICARBONATE 22.9 MEQ/L (21.0-32.0); CALCIUM 8.2 MG/DL (8.5-10.1); CREATININE 0.99 MG/DL (0.60-1.30)
[2017-10-14 10:00] LABS: PHENYTOIN (DILANTIN) 7.7 MCG/ML (10.0-20.0)
--- NOTE | 2017-10-16 08:48 | HHI.PR ---
Subjective Remarks Delayed entry for 10/14/2017. Patient is currently doing well. No acute concerns. Objective Result Diagram: 10/13/17 0612 10/14/17 0834 Imaging Last Impressions Chest X-Ray 10/10/17 0000 Signed Impressions: Service Date/Time: September 08:43 - CONCLUSION: 1. Chronic elevation of the left hemidiaphragm with associated left lung base atelectasis/scarring. 2. No acute abnormality or significant interval change. Kenny Walker MD Head Magnetic Resonance Angiography 10/08/17 0000 Signed Impressions: Service Date/Time: Sunday, October 08, 2017 10:39 - CONCLUSION: 1. Limited exam due to patient motion. 2. No evidence for large vessel occlusion, significant aneurysm or vascular malformation. Kenny Walker MD Carotid Artery Ultrasound 10/08/17 0000 Signed Impressions: Service Date/Time: Sunday, October 08, 2017 09:00 - CONCLUSION: 1. No significant carotid flow-limiting stenosis. 2. Antegrade vertebral artery flow bilaterally. Kenny Walker MD Brain MRI 10/08/17 0000 Signed Impressions: Service Date/Time: Sunday, October 08, 2017 10:39 - CONCLUSION: 1. Stable 9 mm right and 4 mm left frontal hygromas. 2. Stable postsurgical features with stable probable old insult in the medial left frontal lobe. 3. No acute abnormality or significant interval change. Kenny Walker MD Head CT 10/07/17 0000 Signed Impressions: Service Date/Time: Saturday, October 07, 2017 22:11 - CONCLUSION: 1. No acute intracranial abnormality demonstrated. 2. Patchy and prominent ventricles unchanged. 3. Chronic bifrontal cystic hygromas unchanged. 4. Previous craniotomy. Baldev Ayala MD Objective Remarks GENERAL: Alert, NAD. SKIN: Warm and dry. HEAD: Normocephalic. EYES: No scleral icterus. No injection or drainage. NECK: Supple, trachea midline. No JVD or lymphadenopathy. CARDIOVASCULAR: Regular rate and rhythm without murmurs, gallops, or rubs. RESPIRATORY: Breath sounds equal bilaterally. No accessory muscle use. GASTROINTESTINAL: Abdomen soft, non-tender, nondistended. MUSCULOSKELETAL: No cyanosis, or edema. BACK: Nontender without obvious deformity. No CVA tenderness. Procedures none A/P Problem List: (1) TIA (transient ischemic attack) ICD Code: G45.9 - Transient cerebral ischemic attack, unspecified (2) DM (diabetes mellitus) ICD Code: E11.9 - Diabetes mellitus Status: Chronic (3) Seizure ICD Code: R56.9 - Convulsions Status: Acute Assessment and Plan 77 y/o male with a history of dementia, HLD, seizures, subdural hemorrhage s/p evacuation was brought to the ED with complaints of generalized weakness. Noted on 10/10/17 with acute encephalopathy and sepsis Acute encephalopathy 2/2 sepsis Sepsis. (UTI , fevers, tachycardia on 10/10). No leukocytosis, LA is normal. Blood cx pending. U cx pending monitor. Started on Rocephin. -Urine culture negative. Discontinue antibiotics and monitor. TIA, acute Head CT reviewed and shows no acute intracranial abnormality Consult neurology for recommendations. EEG recommendation, may make adjustment on Dilantin dose depending on diagnostic results 2-D echo ordered Carotid ultrasound no significant carotid flow limiting stenosis. 2. Antegrade vertebral artery flow bilaterally. MRA showed 1. Limited exam due to patient motion. 2. No evidence of large vessel occlusion, significant aneurysm or vascular malformation MRI showed 1. Stable 9 mm right and 4 mm left frontal hygromas. 2. Stable postsurgical features with stable probable old insult in the medial left frontal lobe. 3. No acute abnormality or significant interval change. PT/OT/ST eval and treat. Recommends PT for rehab. Speech therapy recommends regular and thin liquids. OT recommendation for rehab. Neuro checks Lipid panel reviewed Dilantin toxicity on admission. Dilantin was on hold. Restarted Dilantin per neurology recommendations. Seizures, chronic Came in to hospital lethargic, difficulty walking, generalized weakness and slurred speech. Dilantin level elevated 20.1 Seizure precautions Follow Dilantin level in a.m. Diabetes, chronic currently elevated Glucose 230 Accu-Cheks with sliding scale insulin A1c 7 home PO medication resume at discharge DVT prophylaxis: SCDs Patient is being discharged today to SNF. Reji Monique DO Oct 16, 2017 8:48 am
== END 2017-10-14 19:11 | DRG 64 ==
LOC: NEPE 21:32 → NEDA 10-08 02:45 → NEDH 10-08 06:10 → NEDA 10-08 15:42 → NEPHCDU 10-08 16:13 → OBSVTOIN 10-08 16:44 → N05B 10-12 16:00
PROVIDERS: ADMIT Hospitalist; ATTEND Hospitalist
DX: I63.9 Cerebral infarction, unspecified (principal); A41.9 Sepsis, unspecified organism; G93.40 Encephalopathy, unspecified; G30.9 Alzheimer's disease, unspecified; F02.80 Dementia in other diseases classified elsewhere, unspecified severity, without behavioral disturbance, psychotic disturbance, mood disturbance, and anxiety; N39.0 Urinary tract infection, site not specified; E11.9 Type 2 diabetes mellitus without complications; I10 Essential (primary) hypertension; I25.10 Atherosclerotic heart disease of native coronary artery without angina pectoris; K21.9 Gastro-esophageal reflux disease without esophagitis; R47.81 Slurred speech; E78.5 Hyperlipidemia, unspecified; G40.909 Epilepsy, unspecified, not intractable, without status epilepticus; D18.1 Lymphangioma, any site; T42.0X5A Adverse effect of hydantoin derivatives, initial encounter; R26.2 Difficulty in walking, not elsewhere classified; Z79.4 Long term (current) use of insulin
CPT/HCPCS: 70450; 70544; 70551; 71045; 71046; 76937; 80048; 80053; 80061; 80185; 81001; 82948; 83036; 83605; 85025; 85027; 85610; 85730; 87040; 87086; 93306; 93880; 95819; 99285; G8987-GO; G8988-GO; G8996-GN; G8997-GN; G8998-GN; J0696; J1815; J7030; J7040

== ENCOUNTER 2017-10-29 20:14 | Inpatient (IN) | payer OTHER, MEDICARE ==
[~2017-10-29 20:14] MED LIST changes: -DILA100C PO; +PHEN100C PO; +PHEN200C3 PO
[2017-10-29 20:30] VITALS: BP 137/72; PULSE 88; RESP 16; TEMP 98.1; O2SAT 99
[2017-10-29] MEDS ORDERED: DULC10SU3 RECTAL (20:48)
[2017-10-29] MEDS ORDERED: PHEN125S PO (20:48)
[2017-10-29] MEDS ORDERED: MEMA1TAB2 PO (20:48)
[2017-10-29] MEDS ORDERED: TYLE325T PO (20:48)
[2017-10-29] MEDS ORDERED: SODIUM CHLOR 0.9% 1000 ML INJ 1,000 ML IV SCH (20:56)
[2017-10-29] MEDS ORDERED: RESP: ALBUTEROL 2.5 MG/IPRATROPIUM 0.5 MG NEB (SCH) INH ONE (21:00)
--- NOTE | 2017-10-29 21:05 | PD ---
HPI Chief Complaint: Medical Clearance Time Seen by Provider: 20:40 Travel History International Travel<30 days: No Contact w/Intl Traveler<30days: No Traveled to known affect area: No History of Present Illness HPI This is a 77-year-old male who presents from [facility] for evaluation of weakness, decreased appetite, cough. The patient has a history of TBI in 2015, dementia, diabetes, seizure disorder. He was admitted in the hospital in mid September for evaluation of possible TIA, Dilantin toxicity, discharged to intermediate facility on October 14. Patient's family members report that over the past several days he has had a rapid decline in activity, appetite. They are concerned that he may not have had anything to eat or drink over the past few days. They also reports that he has had a cough over the past 5 days which is new. They are concerned that he may not be taking his medication. They feel that they are receiving incomplete information from the rehabilitation facility. His primary care physician is Dr. Jacob. [facility] Past Medical History Alzheimer's Disease: Yes Arthritis: No Asthma: No Autoimmune Disease: No Blood Disorders: No Anxiety: No Depression: No Heart Rhythm Problems: No Cancer: No Cardiac Catheterization: Yes Cardiovascular Problems: Yes High Cholesterol: No Chemotherapy: No Chest Pain: Yes Congestive Heart Failure: No COPD: No Cerebrovascular Accident: Yes Coronary Artery Disease: Yes Dementia: Yes Diabetes: Yes Patient Takes Glucophage: No Diminished Hearing: No Endocrine: Yes Gastrointestinal Disorders: Yes (GERD) GERD: Yes Genitourinary: Yes (HX UTI) Hepatitis: No Hiatal Hernia: No Hypertension: Yes Immune Disorder: No Kidney Stones: No Musculoskeletal: No Neurologic: Yes (SDH, SEIZURES, ENCEPAHLOPATHY) Psychiatric: No Reproductive: No Respiratory: No Immunizations Current: Yes Migraines: No Myocardial Infarction: No Radiation Therapy: No Renal Failure: No Seizures: Yes Sickle Cell Disease: No Sleep Apnea: No Thyroid Disease: No Ulcer: No PNEUMOCCOCAL Vaccine (Year): 2 Past Surgical History Abdominal Surgery: No AICD: No Arteriovenous Shunt: No Cardiac Surgery: No Ear Surgery: No Endocrine Surgery: No Eye Surgery: No Genitourinary Surgery: No Gynecologic Surgery: No Insulin Pump: No Joint Replacement: No Neurologic Surgery: Yes (BILATERAL CRANIOTOMY) Oral Surgery: No Pacemaker: No Thoracic Surgery: No Other Surgery: Yes Family History Family Hypercholesterolemia: Yes Social History Alcohol Use: No Tobacco Use: No Substance Use: No Allergies-Medications (Allergen,Severity, Reaction): Coded Allergies: No Known Allergies (Verified Allergy, Unknown, 10/29/17) Reported Meds & Prescriptions Reported Meds & Active Scripts Active Novolog Inj (Insulin Aspart) 1,000 Unit/10 Ml Vial 1-9 Units SQ ACHS Max dose at bedtime:( )units; sugars less than 70,(0)units; sugars 150-199,(1) unit; sugars 200-249,(3) units; sugars 250-299,(5) units; sugars 300-349,(7) units; sugars greater than 349,(9) units Levemir Flextouch Pen Inj (Insulin Detemir) 300 unit/3 ML Pen 10 Units SQ DAILY Aricept (Donepezil HCl) 5 Mg Tablet 2.5 Mg PO DAILY Reported Dulcolax Supp (Bisacodyl) 10 Mg Supp 10 Mg RECTAL DAILY PRN Tylenol (Acetaminophen) 325 Mg Tab 325 Mg PO Q4H PRN Phenytoin Liq (Phenytoin) 125 Mg/5 Ml [place]ressa 200 Mg PO QID Memantine 10 Mg Tab 10 Mg PO DAILY Glipizide 10 Mg Tab 10 Mg PO DAILY Take 30 minutes before a meal Oxybutynin ER 24 HR (Oxybutynin Chloride) 5 Mg Tab 5 Mg PO BID Centrum Silver (Multiple Vitamins W/ Minerals) 400 Mcg-250 Mcg Chw 1 Tab PO DAILY Zocor (Simvastatin) 40 Mg Tab 40 Mg PO HS Omeprazole 20 Mg Tab 20 Mg PO DAILY Review of Systems ROS Limitations: Clinical Condition Except as stated in HPI: all other systems reviewed are Neg Physical Exam Exam Limitations: Clinical Condition Narrative GENERAL: Elderly male in no acute distress. He is responsive to painful stimuli. SKIN: Warm and dry. No obvious sores on the back, buttocks, sacrum, heels. HEAD: Atraumatic. Normocephalic. EYES: Pupils equal and round. No scleral icterus. No injection or drainage. ENT: No nasal bleeding or discharge. Mucous membranes pink and moist. NECK: Trachea midline. No JVD. CARDIOVASCULAR: Regular rate and rhythm. No murmur appreciated. RESPIRATORY: No accessory muscle use. Clear to auscultation. Breath sounds equal bilaterally. GASTROINTESTINAL: Abdomen soft, non-tender, nondistended. Hepatic and splenic margins not palpable. MUSCULOSKELETAL: No obvious deformities. No clubbing. No cyanosis. No edema. NEUROLOGICAL: Awake and alert. No obvious cranial nerve deficits. Incoherent speech. Data Data Last Documented VS Vital Signs Date Time Temp Pulse Resp B/P (MAP) Pulse Ox O2 Delivery O2 Flow Rate FiO2 10/29/17 22:27 99 18 149/89 (109) 98 Nasal Cannula 2.00 10/29/17 20:30 98.1 Orders Orders Albuterol-Ipratropium Neb (Duoneb Neb) (10/29/17 21:00) Complete Blood Count With Diff (10/29/17 20:56) Comprehensive Metabolic Panel (10/29/17 20:56) Urinalysis - C+S If Indicated (10/29/17 20:56) Iv Access Insert/Monitor (10/29/17 20:56) Sodium Chlor 0.9% 1000 Ml Inj (Ns 1000 M (10/29/17 20:56) Electrocardiogram (10/29/17 20:56) Chest, Single Ap (10/29/17 20:56) Phenytoin (Dilantin) (10/29/17 20:56) Cath For Specimen (10/29/17 20:56) Ct Brain W/O Iv Contrast(Rout) (10/29/17 ) Ammonia (10/29/17 21:07) Admit Order (Ed Use Only) (10/29/17 23:10) Labs Laboratory Tests Test 10/29/17 21:25 10/29/17 22:22 White Blood Count 9.5 TH/MM3 Red Blood Count 5.40 MIL/MM3 Hemoglobin 15.9 GM/DL Hematocrit 46.1 % Mean Corpuscular Volume 85.3 FL Mean Corpuscular Hemoglobin 29.3 PG Mean Corpuscular Hemoglobin Concent 34.4 % Red Cell Distribution Width 15.5 % Platelet Count 425 TH/MM3 Mean Platelet Volume 7.5 FL Neutrophils (%) (Auto) 66.8 % Lymphocytes (%) (Auto) 20.0 % Monocytes (%) (Auto) 10.4 % Eosinophils (%) (Auto) 2.3 % Basophils (%) (Auto) 0.5 % Neutrophils # (Auto) 6.3 TH/MM3 Lymphocytes # (Auto) 1.9 TH/MM3 Monocytes # (Auto) 1.0 TH/MM3 Eosinophils # (Auto) 0.2 TH/MM3 Basophils # (Auto) 0.1 TH/MM3 CBC Comment DIFF FINAL Differential Comment Urine Color YELLOW Urine Turbidity CLEAR Urine pH 6.0 Urine Specific [place] 1.024 Urine Protein TRACE mg/dL Urine Glucose (UA) NEG mg/dL Urine Ketones NEG mg/dL Urine Occult Blood NEG Urine Nitrite NEG Urine Bilirubin NEG Urine Urobilinogen LESS THAN 2.0 MG/DL Urine Leukocyte Esterase NEG Urine RBC 2 /hpf Urine WBC 1 /hpf Urine Squamous Epithelial Cells <1 /hpf Urine Hyaline Casts 3 /lpf Urine Mucus FEW /lpf Microscopic Urinalysis Comment CULT NOT INDICATED Blood Urea Nitrogen 13 MG/DL Creatinine 1.19 MG/DL Random Glucose 161 MG/DL Total Protein 8.2 GM/DL Albumin 3.3 GM/DL Calcium Level 8.5 MG/DL Alkaline Phosphatase 136 U/L Aspartate Amino Transf (AST/SGOT) 21 U/L Alanine Aminotransferase (ALT/SGPT) 29 U/L Total Bilirubin 0.3 MG/DL Sodium Level 143 MEQ/L Potassium Level 3.9 MEQ/L Chloride Level 106 MEQ/L Carbon Dioxide Level 28.3 MEQ/L Anion Gap 9 MEQ/L Estimat Glomerular Filtration Rate 72 ML/MIN Ammonia 17 MCMOL/L Phenytoin (Dilantin) Level 39.5 MCG/ML MDM Medical Decision Making Medical Screen Exam Complete: Yes Emergency Medical Condition: Yes Medical Record Reviewed: Yes Differential Diagnosis Dilantin toxicity, sepsis, encephalitis, progressive dementia, hyponatremia, failure to thrive Narrative Course The patient was placed on ECG monitoring pulse oximetry. Lab work, CT, chest x- ray will be obtained. The patient will be given DuoNeb treatment. CBC unremarkable, CMP random glucose 161, ALP 136, GFR 72, otherwise unremarkable urinalysis negative, CT brain reveals previous bilateral craniotomy with stable focal encephalomalacia and stable frontal subdural hygromas with no acute abnormalities. Chest x-ray reveals no active disease. At this point in time the plan is to admit the patient for evaluation of failure to thrive. Discussed with Dr. Song is agreeable. Shortly after admission the patient's Dilantin level has returned at 39.5, this is likely contributing to the patient's acute symptomatology. Diagnosis Primary Impression: Failure to thrive in adult Additional Impressions: Dementia Dilantin toxicity Admitting Information Admitting Physician Requests: Observation Farhad Gonzales Oct 29, 2017 21:05
[2017-10-29 21:22] VITALS: O2SAT 96
[2017-10-29 21:45] LABS: BILIRUBIN, URINE NEG (NEG); BLOOD, URINE NEG (NEG); GLUCOSE,URINE NEG (NEG); HYALINE CAST, URINE 3 /lpf (RARE); KETONE, URINE NEG (NEG); MUCUS URINE FEW /lpf (OCC); NITRITE,URINE NEG (NEG); SQUAMOUS EPITHELIAL CELL URINE <1 /hpf (0-5); URINE COLOR YELLOW (YELLW/STRAW); URINE LEUKOCYTE ESTERASE NEG (NEG)
[2017-10-29 21:46] LABS: AUTOMATED NEUTROPHIL # 6.3 TH/MM3 (1.8-7.7); BASOPHIL # 0.1 TH/MM3 (0-0.2); BASOPHIL % 0.5 % (0.0-2.0); EOSINOPHIL # 0.2 TH/MM3 (0-0.4); EOSINOPHIL % 2.3 % (0.0-4.0); HEMATOCRIT 46.1 % (39.0-51.0); HEMOGLOBIN 15.9 GM/DL (13.0-17.0); LYMPHOCYTE # 1.9 TH/MM3 (1.0-4.8); MEAN CELL VOLUME 85.3 FL (80.0-100.0); MEAN CORPUSCULAR HEMOGLOBIN 29.3 PG (27.0-34.0); MEAN CORPUSCULAR HGB CONC 34.4 % (32.0-36.0); MEAN PLATELET VOLUME 7.5 FL (7.0-11.0); MONO % 10.4 % (0.0-8.0); NEUT % 66.8 % (16.0-70.0); PLATELET COUNT 425 TH/MM3 (150-450); RED CELL DISTRIBUTION WIDTH 15.5 % (11.6-17.2); WHITE BLOOD COUNT 9.5 TH/MM3 (4.0-11.0)
--- NOTE | 2017-10-29 22:21 | RADRPT ---
EXAM DATE/TIME: 10/29/2017 21:58 [facility] COMPARISON: No previous studies available for comparison. INDICATIONS : Altered mental status. RADIATION DOSE: 56.35 CTDIvol (mGy) MEDICAL HISTORY : Dementia. SURGICAL HISTORY : Craniotomy. ENCOUNTER: Initial ACUITY: 1 day PAIN SCALE: Non-responsive LOCATION: cranial TECHNIQUE: Multiple contiguous axial images were obtained of the head. Using automated exposure control and adj ustment of the mA and/or kV according to patient size, radiation dose was kept as low as reasonably a chievable to obtain optimal diagnostic quality images. DICOM format image data is available electro nically for review and comparison. FINDINGS: Comparison is October 07. Atrophy and anterior frontal subdural hygromas are stable. Stable encephaloma lacia medial left frontal lobe. Previous bilateral craniotomies. 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 No recent infarct. Ventricular size is stable. Paranasal sinuses are clear. CONCLUSION: 1. Previous bilateral craniotomy with stable focal encephalomalacia left frontal lobe and stable fron jacob subdural hygromas. 2. 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 3. No acute intracranial abnormalities. Augustine Kelly MD on October 29, 2017 at 22:17 Board Certified Radiologist. This report was verified electronically.
[2017-10-29 22:27] VITALS: BP 149/89; PULSE 99; RESP 18; O2SAT 98
--- NOTE | 2017-10-29 22:37 | RADRPT ---
EXAM DATE/TIME: 10/29/2017 22:13 [facility] COMPARISON: CHEST PA & LAT, April 29, 2017, 12:34. INDICATIONS : Cough. Altered mental status. MEDICAL HISTORY : Hypertension. Diabetes mellitus type II. Stroke. Seizures. Alzheimer's. SURGICAL HISTORY : None. ENCOUNTER: Initial ACUITY: 2 days PAIN SCORE: Non-responsive. LOCATION: Bilateral chest FINDINGS: A single view of the chest demonstrates the lungs to be symmetrically aerated without evidence of mas s, infiltrate or effusion. Elevated left hemidiaphragm is stable. The cardiomediastinal contours are unremarkable. Osseous structures are intact. CONCLUSION: 1. No active disease. Stable elevated left hemidiaphragm compared with October 10 and April 2017. Augustine Kelly MD on October 29, 2017 at 22:34 Board Certified Radiologist. This report was verified electronically.
[2017-10-29 22:59] LABS: ALBUMIN 3.3 GM/DL (3.4-5.0); AST (GOT) 21 U/L (15-37); BICARBONATE 28.3 MEQ/L (21.0-32.0); BLOOD UREA NITROGEN 13 MG/DL (7-18); CALCIUM 8.5 MG/DL (8.5-10.1); CHLORIDE 106 MEQ/L (98-107); CREATININE 1.19 MG/DL (0.60-1.30); GLOMERULAR FILTRATION RATE 72 ML/MIN (>89); GLUCOSE,RANDOM 161 MG/DL (74-106); SODIUM (NA) 143 MEQ/L (136-145)
[2017-10-29 23:12] LABS: ALKALINE PHOSPHATASE 136 U/L (45-117); ALT (GPT) 29 U/L (12-78); TOTAL BILIRUBIN ADULT 0.3 MG/DL (0.2-1.0); TOTAL PROTEIN 8.2 GM/DL (6.4-8.2)
[2017-10-29 23:14] LABS: PHENYTOIN (DILANTIN) 39.5 MCG/ML (10.0-20.0)
[2017-10-30] MEDS ORDERED: DEXTROSE 50% IN WATER 50 ML VIAL(D50) IV PUSH PRN
[2017-10-30] MEDS ORDERED: SODIUM CHLORIDE 0.9% FLUSH 10 ML FLUSH IV FLUSH PRN
[2017-10-30] MEDS ORDERED: GLUCAGON 1 MG/ML VIAL OTHER PRN
[2017-10-30] MEDS ORDERED: SENNOSIDES 8.6 MG TAB PO PRN
[2017-10-30] MEDS ORDERED: BISACODYL 10 MG SUPP RECTAL PRN
[2017-10-30] MEDS ORDERED: MAGNESIUM HYDROXIDE SUSP 30 ML CUP PO PRN
[2017-10-30] MEDS ORDERED: LACTULOSE SYRUP 20 GM/30 ML CUP PO PRN
[2017-10-30] MEDS ORDERED: ONDANSETRON HCL 4 MG/2 ML VIAL IVP PRN
[2017-10-30] MEDS ORDERED: ACETAMINOPHEN 325 MG TAB PO PRN
[2017-10-30] MEDS ORDERED: NALOXONE HCL 0.4 MG/ML AMP IV PUSH PRN
[2017-10-30 00:15] VITALS: BP 123/74; PULSE 82; RESP 16; TEMP 97.9; O2SAT 100
[2017-10-30] MEDS: HEPARIN SODIUM - SQ 10,000 UNITS/ML VIAL SQ SCH ×2 (01:21→16:04)
[2017-10-30 03:52] LABS: AUTOMATED NEUTROPHIL # 5.4 TH/MM3 (1.8-7.7); BASOPHIL % 0.5 % (0.0-2.0); EOSINOPHIL # 0.2 TH/MM3 (0-0.4); EOSINOPHIL % 2.3 % (0.0-4.0); HEMATOCRIT 40.1 % (39.0-51.0); HEMOGLOBIN 13.4 GM/DL (13.0-17.0); LYMPH % 24.5 % (9.0-44.0); LYMPHOCYTE # 2.1 TH/MM3 (1.0-4.8); MEAN CELL VOLUME 85.7 FL (80.0-100.0); MEAN CORPUSCULAR HEMOGLOBIN 28.6 PG (27.0-34.0); MEAN CORPUSCULAR HGB CONC 33.4 % (32.0-36.0); MEAN PLATELET VOLUME 7.3 FL (7.0-11.0); MONO % 8.3 % (0.0-8.0); MONOCYTE # 0.7 TH/MM3 (0-0.9); NEUT % 64.4 % (16.0-70.0); PLATELET COUNT 371 TH/MM3 (150-450); RED BLOOD COUNT 4.68 MIL/MM3 (4.50-5.90); RED CELL DISTRIBUTION WIDTH 15.4 % (11.6-17.2); WHITE BLOOD COUNT 8.4 TH/MM3 (4.0-11.0)
[2017-10-30 04:18] LABS: BICARBONATE 27.3 MEQ/L (21.0-32.0); CALCIUM 8.4 MG/DL (8.5-10.1); CREATININE 0.99 MG/DL (0.60-1.30)
[2017-10-30 07:47] VITALS: BP 125/67; PULSE 84; RESP 18; TEMP 98.6; O2SAT 100
--- NOTE | 2017-10-30 07:55 | EKG ---
Date Performed: 10/29/2017 Time Performed: 21:06:03 PTAGE: 77 years EKG: Sinus rhythm INDETERMINATE AXIS RIGHT BUNDLE BRANCH BLOCK ABNORMAL ECG PREVIOUS TRACING : 10/02/2017 01.25 DOCTOR: Ezra Katz Interpretating Date/Time 10/30/2017 07:53:32
[2017-10-30] MEDS: INSULIN ASPART SUPPLEMENTAL SCALE SQ SCH ×4 (08:00→21:53)
[2017-10-30] MEDS: D5-1/2 NS + KCL 10 MEQ INJ 1,000 ML IV SCH (08:45)
[2017-10-30] MEDS: MEMANTINE HCL 10 MG TAB PO SCH (09:00)
[2017-10-30] MEDS: INSULIN DETEMIR 100 UNITS/ML VIAL SQ SCH (09:00)
[2017-10-30] MEDS: TOLTERODINE TARTRATE 2 MG CAP LA PO SCH ×2 (09:00→21:24)
[2017-10-30] MEDS: SODIUM CHLORIDE 0.9% FLUSH 10 ML FLUSH IV FLUSH SCH ×2 (09:00→21:53)
[2017-10-30] MEDS: PANTOPRAZOLE SOD 20 MG DELAYED RELEASE TAB PO SCH (09:00)
[2017-10-30] MEDS: DONEPEZIL HCL 5 MG TAB PO SCH (09:00)
[2017-10-30] MEDS: DOCUSATE SODIUM 50 MG/SENNA 8.6 MG TAB PO SCH ×2 (09:00→21:00)
--- NOTE | 2017-10-30 09:51 | HHI.HP ---
[facility] Manjit Jiménez MD Admission Diagnosis Failure to thrive, dementia Diagnoses: (1) Dilantin toxicity Diagnosis: Principal Chief Complaint: failure to thrive, weakness, decreased appetite Travel History International Travel<30 Days: No Contact w/Intl Traveler <30 Da: No Traveled to Known Affected Are: No History of Present Illness Written by Kalyani Allen, acting as scribe for Dr. Milton on 10/30/17 at 09:49. 77-year-old male with history of TBI 2014, dementia, diabetes, seizure disorder , CAD, hypertension, GERD, presents from [facility] for worsening weakness and decreased appetite. The patient is currently awake, alert, but nonverbal this morning and will not answer any questions. He does follow some simple commands such as squeezing hands, and moving feet. The patient was recently admitted to the hospital in September 2017. Evaluation of suspected TIA, with Dilantin toxicity, and discharge to SNF on 10/14. While at SNF over the past several days he reportedly has had a decline in activity participation and appetite. They believe he has not ate or drank anything in the past few days. No other information was provided. Patient unable to answer review of systems. Upon arrival to the ED, Dilantin level significantly elevated at 39.5. CBC, BMP , and UA unremarkable. 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 Review of Systems ROS Limitations: Altered Mental Status, Poor Historian Past Family Social History Past Medical History TBI 2015 CVA dementia diabetes seizure disorder CAD hypertension GERD Past Surgical History Bilateral craniotomy Cardiac catheterization Reported Medications Novolog Inj (Insulin Aspart) 1,000 Unit/10 Ml Vial 1-9 Units SQ ACHS Max dose at bedtime:( )units; sugars less than 70,(0)units; sugars 150-199,(1) unit; sugars 200-249,(3) units; sugars 250-299,(5) units; sugars 300-349,(7) units; sugars greater than 349,(9) units Levemir Flextouch Pen Inj (Insulin Detemir) 300 unit/3 ML Pen 10 Units SQ DAILY Aricept (Donepezil HCl) 5 Mg Tablet 2.5 Mg PO DAILY Dulcolax Supp (Bisacodyl) 10 Mg Supp 10 Mg RECTAL DAILY PRN Tylenol (Acetaminophen) 325 Mg Tab 325 Mg PO Q4H PRN Phenytoin Liq (Phenytoin) 125 Mg/5 Ml Andressa 200 Mg PO QID Memantine 10 Mg Tab 10 Mg PO DAILY Glipizide 10 Mg Tab 10 Mg PO DAILY Take 30 minutes before a meal Oxybutynin ER 24 HR (Oxybutynin Chloride) 5 Mg Tab 5 Mg PO BID Centrum Silver (Multiple Vitamins W/ Minerals) 400 Mcg-250 Mcg Chw 1 Tab PO DAILY Zocor (Simvastatin) 40 Mg Tab 40 Mg PO HS Omeprazole 20 Mg Tab 20 Mg PO DAILY Allergies: Coded Allergies: No Known Allergies (Verified Allergy, Unknown, 10/29/17) Active Ordered Medications Current Medications Medications (Trade) Dose Ordered Sig/Rylie Route Start Time Stop Time Status Last Admin (NS Flush) 2 ml UNSCH PRN IV FLUSH 10/30/17 00:00 (NS Flush) 2 ml BID IV FLUSH 10/30/17 09:00 10/30/17 09:00 (Tylenol) 650 mg Q4H PRN PO 10/30/17 00:00 (Zofran Inj) 4 mg Q6H PRN IVP 10/30/17 00:00 (Heparin Inj) 5,000 units Q12H SQ 10/30/17 00:00 10/30/17 16:04 (Narcan Inj) 0.4 mg UNSCH PRN IV PUSH 10/30/17 00:00 (Vy-Colace) 1 tab BID PO 10/30/17 09:00 (Milk Of Magnesia Liq) 30 ml Q12H PRN PO 10/30/17 00:00 (Senokot) 17.2 mg Q12H PRN PO 10/30/17 00:00 (Dulcolax Supp) 10 mg DAILY PRN RECTAL 10/30/17 00:00 (Lactulose Liq) 30 ml DAILY PRN PO 10/30/17 00:00 (Aricept) 2.5 mg DAILY PO 10/30/17 09:00 (Namenda) 10 mg DAILY PO 10/30/17 09:00 (Levemir Inj) 10 units DAILY SQ 10/30/17 09:00 (Protonix) 20 mg DAILY PO 10/30/17 09:00 (Detrol La) 2 mg BID PO 10/30/17 09:00 (Pravachol) 80 mg HS PO 10/30/17 21:00 (D50w (Vial) Inj) 50 ml UNSCH PRN IV PUSH 10/30/17 00:00 (Glucagon Inj) 1 mg UNSCH PRN OTHER 10/30/17 00:00 (NovoLOG SUPPLEMENTAL SCALE) 1 ACHS SLIDING SCALE SQ 10/30/17 08:00 Potassium Chloride/Dextrose/ Sod Cl 1,000 ml @ 55 mls/hr [id number] IV 10/30/17 08:45 10/30/17 08:45 Family History Patient unable to provide family history Per EMR, family history reportedly positive for hypercholesterolemia Social History Per EMR- no tobacco, alcohol, or illicit drug use Physical Exam Vital Signs Vital Signs Date Time Temp Pulse Resp B/P (MAP) Pulse Ox O2 Delivery O2 Flow Rate FiO2 10/30/17 07:47 98.6 84 18 125/67 (86) 100 10/30/17 00:20 10/30/17 00:15 97.9 82 16 123/74 (90) 100 10/29/17 22:27 99 18 149/89 (109) 98 Nasal Cannula 2.00 10/29/17 21:22 96 Nasal Cannula 2.00 10/29/17 20:30 98.1 88 16 137/72 (93) 99 Physical Exam GENERAL: Well-nourished, well-developed thin elderly male patient in [facility]. SKIN: Warm and dry. No rash. HEAD: Normocephalic. Atraumatic. EYES: Pupils equal and round. No scleral icterus. No injection or drainage. ENT: No nasal bleeding or discharge. Mucous membranes pink and moist. NECK: Supple. Trachea midline. CARDIOVASCULAR: Regular rate and rhythm. No murmur appreciated. RESPIRATORY: No accessory muscle use. Clear to auscultation. Breath sounds equal bilaterally. GASTROINTESTINAL: Abdomen soft, non-tender, nondistended. Normoactive bowel sounds x4. MUSCULOSKELETAL: No obvious deformities. Extremities without clubbing, cyanosis , or edema. NEUROLOGICAL: Awake and alert. No obvious cranial nerve deficits. Motor grossly within normal limits. Moving all extremities spontaneously, however does not participate appropriately in strength testing. Bilateral patellar DTRs 2+. Patient nonverbal, unable to assess speech. PSYCHIATRIC: Insight and judgment limited. Laboratory Laboratory Tests Test 10/29/17 21:25 10/29/17 22:22 10/30/17 03:00 White Blood Count 9.5 8.4 Red Blood Count 5.40 4.68 Hemoglobin 15.9 13.4 Hematocrit 46.1 40.1 Mean Corpuscular Volume 85.3 85.7 Mean Corpuscular Hemoglobin 29.3 28.6 Mean Corpuscular Hemoglobin Concent 34.4 33.4 Red Cell Distribution Width 15.5 15.4 Platelet Count 425 371 Mean Platelet Volume 7.5 7.3 Neutrophils (%) (Auto) 66.8 64.4 Lymphocytes (%) (Auto) 20.0 24.5 Monocytes (%) (Auto) 10.4 8.3 Eosinophils (%) (Auto) 2.3 2.3 Basophils (%) (Auto) 0.5 0.5 Neutrophils # (Auto) 6.3 5.4 Lymphocytes # (Auto) 1.9 2.1 Monocytes # (Auto) 1.0 0.7 Eosinophils # (Auto) 0.2 0.2 Basophils # (Auto) 0.1 0.0 CBC Comment DIFF FINAL DIFF FINAL Differential Comment Urine Color YELLOW Urine Turbidity CLEAR Urine pH 6.0 Urine Specific [place] 1.024 Urine Protein TRACE Urine Glucose (UA) NEG Urine Ketones NEG Urine Occult Blood NEG Urine Nitrite NEG Urine Bilirubin NEG Urine Urobilinogen LESS THAN 2.0 Urine Leukocyte Esterase NEG Urine RBC 2 Urine WBC 1 Urine Squamous Epithelial Cells <1 Urine Hyaline Casts 3 Urine Mucus FEW Microscopic Urinalysis Comment CULT NOT INDICATED Blood Urea Nitrogen 13 11 Creatinine 1.19 0.99 Random Glucose 161 159 Total Protein 8.2 Albumin 3.3 Calcium Level 8.5 8.4 Alkaline Phosphatase 136 Aspartate Amino Transf (AST/SGOT) 21 Alanine Aminotransferase (ALT/SGPT) 29 Total Bilirubin 0.3 Sodium Level 143 142 Potassium Level 3.9 4.2 Chloride Level 106 107 Carbon Dioxide Level 28.3 27.3 Anion Gap 9 8 Estimat Glomerular Filtration Rate 72 89 Ammonia 17 Phenytoin (Dilantin) Level 39.5 Result Diagram: 10/30/1729910/30/17299 Imaging Last Impressions Chest X-Ray 10/29/172055 Signed Impressions: Service Date/Time: Sunday, October 29, 2017 22:13 - CONCLUSION: 1. No active disease. Stable elevated left hemidiaphragm compared with October 10 and April 2017. Augustine Kelly MD Head CT 10/29/17 0000 Signed Impressions: Service Date/Time: Sunday, October 29, 2017 21:58 - CONCLUSION: 1. Previous bilateral craniotomy with stable focal encephalomalacia left frontal lobe and stable frontal subdural hygromas. 2. 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 3. No acute intracranial abnormalities. MD Rika Harris VTE Risk Assessment Caprini VTE Risk Assessment: Mod/High Risk (score >= 2) Caprini Risk Assessment Model Point Value = 1 Point Value = 2 Point Value = 3 Point Value = 5 Age 41-60 Minor surgery BMI > 25 kg/m2 Swollen legs Varicose veins or History of unexplained or recurrent spontaneous Oral contraceptives or hormone replacement Sepsis (< 1 month) Serious lung disease, including pneumonia (< 1 month) Abnormal pulmonary function Acute myocardial infarction Congestive heart failure (< 1 month) History of inflammatory bowel disease Medical patient at bed rest Age 61-74 Arthroscopic surgery Major open surgery (> 45 min) Laparoscopic surgery (> 45 min) Malignancy Confined to bed (> 72 hours) Immobilizing plaster cast Central venous access Age >= 75 History of VTE Family history of VTE Factor V Leiden Prothrombin [id number] Lupus anticoagulant Anticardiolipin antibodies Elevated serum homocysteine Heparin-induced thrombocytopenia Other congenital or acquired thrombophilia Stroke (< 1 month) Elective arthroplasty Hip, pelvis, or leg fracture Acute spinal cord injury (< 1 month) Prophylaxis Regimen Total Risk Factor Score Risk Level Prophylaxis Regimen 0-1 Low Early ambulation 2 Moderate Order ONE of the following: *Sequential Compression Device (SCD) *Heparin 5000 units SQ BID 3-4 Higher Order ONE of the following medications: *Heparin 5000 units SQ TID *Enoxaparin/Lovenox 40 mg SQ daily (WT < 150 kg, CrCl > 30 mL/min) *Enoxaparin/Lovenox 30 mg SQ daily (WT < 150 kg, CrCl > 10-29 mL/min) *Enoxaparin/Lovenox 30 mg SQ BID (WT < 150 kg, CrCl > 30 mL/min) AND/OR *Sequential Compression Device (SCD) 5 or more Highest Order ONE of the following medications: *Heparin 5000 units SQ TID (Preferred with Epidurals) *Enoxaparin/Lovenox 40 mg SQ daily (WT < 150 kg, CrCl > 30 mL/min) *Enoxaparin/Lovenox 30 mg SQ daily (WT < 150 kg, CrCl > 10-29 mL/min) *Enoxaparin/Lovenox 30 mg SQ BID (WT < 150 kg, CrCl > 30 mL/min) AND *Sequential Compression Device (SCD) Assessment and Plan Problem List: (1) Dilantin toxicity ICD Code: T42.0X1A - Poisoning by hydantoin derivatives, accidental ( unintentional), initial encounter Status: Acute Assessment and Plan 77-year-old male with history of TBI 2015, dementia, diabetes, seizure disorder , CAD, hypertension, GERD, presents from [facility] for worsening weakness and decreased appetite. The patient is currently awake, alert, but nonverbal this morning and will not answer any questions. He does follow some simple commands such as squeezing hands, and moving feet. Acute encephalopathy: Suspect secondary to Dilantin toxicity, however rule out other etiologies including CVA or infection. Afebrile, no leukocytosis. -Head CT shows previous bilateral craniotomy with stable focal encephalomalacia left frontal lobe and stable frontal subdural hygromas; otherwise no acute intracranial abnormalities -CXR images reviewed with no acute findings; stable elevated left hemidiaphragm -CBC, BMP, and UA unremarkable. -Continue to monitor Dilantin toxicity: Dilantin level significantly elevated at 39.5 upon arrival. -Hold patient's Dilantin -Neuro checks, seizure precautions -Monitor daily dilantin level Failure to Thrive/Poor Oral Intake: Likely multifactorial secondary to history of dementia, CVA, and now with acute encephalopathy. -Consult dietitian and ST -Consult PT/OT -add glucerna shake with every meal Dementia: chronic -continue patient's aricept, namenda HLD: chronic -continue patient's statin GERD: chronic -continue patient's PPI Diabetes Mellitus: chronic -continue patient's levemir if tolerating oral intake -monitor accu-checks and cover with SSI DVT Prophylaxis: Heparin sq Discussed Condition With Patient, RN Attending Statement This note was transcribed by lisa Allen. I, Dr. Mannie Milton personally performed the history, physical exam, and medical decision making; and confirmed the accuracy of the information in the transcribed note. Authenticated by Dr. Mannie Milton on 10/31/17 at 17:59. Kalyani Allen PA-C Oct 30, 2017 09:51 Mannie Milton MD Oct 31, 2017 17:59
[2017-10-30 11:30] VITALS: BP 118/71; PULSE 88; RESP 19; TEMP 98.9; O2SAT 97
[2017-10-30 15:35] VITALS: BP 168/74; PULSE 92; RESP 18; TEMP 99.7; O2SAT 92
[2017-10-30] MEDS: PRAVASTATIN SOD 80 MG TAB PO SCH (21:24)
[2017-10-30 21:35] VITALS: BP 134/78; PULSE 84; RESP 16; TEMP 98.1; O2SAT 98
[2017-10-30 23:55] VITALS: BP 135/80; PULSE 78; RESP 17; TEMP 98; O2SAT 97
[2017-10-31] MEDS: HEPARIN SODIUM - SQ 10,000 UNITS/ML VIAL SQ SCH ×2 (00:55→12:19)
[2017-10-31 03:49] VITALS: BP 130/78; PULSE 78; RESP 18; TEMP 98.2; O2SAT 96
[2017-10-31 07:24] VITALS: BP 123/70; PULSE 79; RESP 18; TEMP 98.3; O2SAT 96
[2017-10-31] MEDS: PANTOPRAZOLE SOD 20 MG DELAYED RELEASE TAB PO SCH (09:31)
[2017-10-31] MEDS: DOCUSATE SODIUM 50 MG/SENNA 8.6 MG TAB PO SCH ×2 (09:31→20:59)
[2017-10-31] MEDS: INSULIN ASPART SUPPLEMENTAL SCALE SQ SCH ×4 (09:31→22:31)
[2017-10-31] MEDS: MEMANTINE HCL 10 MG TAB PO SCH (09:31)
[2017-10-31] MEDS: SODIUM CHLORIDE 0.9% FLUSH 10 ML FLUSH IV FLUSH SCH ×2 (09:31→21:00)
[2017-10-31] MEDS: DONEPEZIL HCL 5 MG TAB PO SCH (09:31)
[2017-10-31] MEDS: INSULIN DETEMIR 100 UNITS/ML VIAL SQ SCH (09:48)
[2017-10-31] MEDS: D5-1/2 NS + KCL 10 MEQ INJ 1,000 ML IV SCH (10:11)
[2017-10-31] MEDS: TOLTERODINE TARTRATE 2 MG CAP LA PO SCH ×2 (10:12→20:59)
[2017-10-31 12:01] VITALS: BP 125/71; PULSE 88; RESP 16; TEMP 97.5; O2SAT 97
[2017-10-31 17:24] VITALS: BP 106/68; PULSE 80; RESP 20; TEMP 98.1; O2SAT 97
--- NOTE | 2017-10-31 18:09 | HHI.PR ---
Subjective Remarks Patient smiling more today, appears to be trying to speak, however speech is unintelligible. Makes good eye contact today. Objective Vital Signs Date Time Temp Pulse Resp B/P (MAP) Pulse Ox O2 Delivery O2 Flow Rate FiO2 10/31/17 17:24 98.1 80 20 106/68 (81) 97 10/31/17 12:01 97.5 88 16 125/71 (89) 97 10/31/17 07:27 Room Air 10/31/17 07:24 98.3 79 18 123/70 (87) 96 10/31/17 03:49 98.2 78 18 130/78 (95) 96 10/30/17 23:55 98.0 78 17 135/80 (98) 97 10/30/17 21:35 98.1 84 16 134/78 (96) 98 I/O 10/30/17 10/30/17 10/30/17 10/31/17 10/31/17 10/31/17 07:00 15:00 23:00 07:00 15:00 23:00 # Voids 1 Result Diagram: 10/30/17 0300 10/30/17 0300 Objective Remarks GENERAL: smiles, tries to speak, however speech unintelligible. Makes good eye contact. Appears comfortable. Sleeping, wakes up for exam SKIN: Warm and dry. HEAD: Normocephalic. EYES: No scleral icterus. No injection or drainage. NECK: Supple, trachea midline. No JVD. CARDIOVASCULAR: Regular rate and rhythm without murmurs, gallops, or rubs. RESPIRATORY: Breath sounds equal bilaterally. No accessory muscle use. GASTROINTESTINAL: Abdomen soft, non-tender, nondistended. MUSCULOSKELETAL: No cyanosis, or edema. BACK: Nontender without obvious deformity. No CVA tenderness. A/P Assessment and Plan 77-year-old male with history of TBI 2015, dementia, diabetes, seizure disorder , CAD, hypertension, GERD, presents from [facility] for worsening weakness and decreased appetite. The patient is currently awake, alert, but nonverbal this morning and will not answer any questions. He does follow some simple commands such as squeezing hands, and moving feet. Toxic encephalopathy: Suspect secondary to Dilantin toxicity, however rule out other etiologies including CVA or infection. Afebrile, no leukocytosis. -Head CT shows previous bilateral craniotomy with stable focal encephalomalacia left frontal lobe and stable frontal subdural hygromas; otherwise no acute intracranial abnormalities -CXR images reviewed with no acute findings; stable elevated left hemidiaphragm -CBC, BMP, and UA unremarkable. -Continue to monitor = Dilantin level 37 down from 49 on admission. Continue IV fluids. Continue to monitor. Dilantin toxicity: Dilantin level significantly elevated at 39.5 upon arrival. -Hold patient's Dilantin -Neuro checks, seizure precautions -Monitor daily dilantin level = Dilantin level 37 down from 49 on admission. Continue IV fluids. Continue to monitor. Failure to Thrive/Poor Oral Intake: Likely multifactorial secondary to history of dementia, CVA, and now with acute encephalopathy. -Consult dietitian and ST -Consult PT/OT -Likely in part secondary to Dilantin toxicity. Continue D5 half-normal saline. Check labs tomorrow. Dementia: chronic -continue patient's aricept, namenda HLD: chronic -continue patient's statin GERD: chronic -continue patient's PPI Diabetes Mellitus: chronic -continue patient's levemir if tolerating oral intake -monitor accu-checks and cover with SSI DVT Prophylaxis: Heparin sq Discharge Planning back to SNF when encephalopathy resolved. Based on Dilantin level rate of decrease, may be several more days. Mannie Milton MD Oct 31, 2017 18:09
[2017-10-31] MEDS ORDERED: SODIUM CHLORID 0.9% 500 ML INJ 500 ML IV ONE (18:59)
[2017-10-31] MEDS: PRAVASTATIN SOD 80 MG TAB PO SCH (20:59)
[2017-10-31 21:39] VITALS: BP 134/76; PULSE 85; RESP 17; TEMP 98.4; O2SAT 96
[2017-11-01] MEDS: HEPARIN SODIUM - SQ 10,000 UNITS/ML VIAL SQ SCH ×2 (00:32→14:25)
[2017-11-01] MEDS: D5-1/2 NS + KCL 10 MEQ INJ 1,000 ML IV SCH (00:32)
[2017-11-01 01:20] VITALS: BP 138/72; PULSE 76; RESP 15; TEMP 100; O2SAT 95
[2017-11-01 05:00] VITALS: BP 133/76; PULSE 76; RESP 15; TEMP 97.4; O2SAT 93
[2017-11-01 05:53] LABS: AUTOMATED NEUTROPHIL # 3.5 TH/MM3 (1.8-7.7); BASOPHIL % 0.7 % (0.0-2.0); EOSINOPHIL # 0.3 TH/MM3 (0-0.4); EOSINOPHIL % 4.9 % (0.0-4.0); HEMATOCRIT 46.9 % (39.0-51.0); HEMOGLOBIN 15.9 GM/DL (13.0-17.0); LYMPH % 31.6 % (9.0-44.0); LYMPHOCYTE # 2.1 TH/MM3 (1.0-4.8); MEAN CORPUSCULAR HEMOGLOBIN 29.2 PG (27.0-34.0); MONO % 9.7 % (0.0-8.0); MONOCYTE # 0.6 TH/MM3 (0-0.9); NEUT % 53.1 % (16.0-70.0); PLATELET COUNT 304 TH/MM3 (150-450); RED BLOOD COUNT 5.46 MIL/MM3 (4.50-5.90); WHITE BLOOD COUNT 6.7 TH/MM3 (4.0-11.0)
[2017-11-01 06:24] LABS: ALBUMIN 3.4 GM/DL (3.4-5.0); BICARBONATE 26.1 MEQ/L (21.0-32.0); CREATININE 1.08 MG/DL (0.60-1.30); MAGNESIUM 1.8 MG/DL (1.5-2.5); PHOSPHORUS 3.6 MG/DL (2.5-4.9)
[2017-11-01] MEDS: SODIUM CHLORIDE 0.9% FLUSH 10 ML FLUSH IV FLUSH SCH ×2 (09:00→21:00)
[2017-11-01 09:05] VITALS: BP 143/81; PULSE 84; RESP 16; TEMP 97.6; O2SAT 96
[2017-11-01 09:34] LABS: PHENYTOIN (DILANTIN) 33.8 MCG/ML (10.0-20.0)
[2017-11-01] MEDS: DONEPEZIL HCL 5 MG TAB PO SCH (09:45)
[2017-11-01] MEDS: DOCUSATE SODIUM 50 MG/SENNA 8.6 MG TAB PO SCH ×2 (09:45→21:00)
[2017-11-01] MEDS: TOLTERODINE TARTRATE 2 MG CAP LA PO SCH ×2 (09:45→21:30)
[2017-11-01] MEDS: MEMANTINE HCL 10 MG TAB PO SCH (09:45)
[2017-11-01] MEDS: PANTOPRAZOLE SOD 20 MG DELAYED RELEASE TAB PO SCH (09:45)
[2017-11-01] MEDS: INSULIN ASPART SUPPLEMENTAL SCALE SQ SCH ×3 (09:46→21:00)
[2017-11-01] MEDS: INSULIN DETEMIR 100 UNITS/ML VIAL SQ SCH (09:46)
--- NOTE | 2017-11-01 10:06 | HHI.PR ---
Subjective Remarks Patient sitting up in bed. Smiling, talking this morning. He is disoriented but pleasant. Objective Vital Signs Date Time Temp Pulse Resp B/P (MAP) Pulse Ox O2 Delivery O2 Flow Rate FiO2 11/01/17 09:05 97.6 84 16 143/81 (101) 96 11/01/17 05:00 97.4 76 15 133/76 (95) 93 11/01/17 01:20 100.0 76 15 138/72 (94) 95 10/31/17 22:33 97 Room Air 10/31/17 21:39 98.4 85 17 134/76 (95) 96 10/31/17 17:24 98.1 80 20 106/68 (81) 97 10/31/17 12:01 97.5 88 16 125/71 (89) 97 Result Diagram: 11/01/17 0443 11/01/17 0443 Objective Remarks GENERAL: smiling, speaking slow. Disoriented but pleasant. Improvement from yesterday. SKIN: Warm and dry. HEAD: Normocephalic. EYES: No scleral icterus. No injection or drainage. NECK: Supple, trachea midline. No JVD. CARDIOVASCULAR: Regular rate and rhythm without murmurs, gallops, or rubs. RESPIRATORY: Breath sounds equal bilaterally. No accessory muscle use. GASTROINTESTINAL: Abdomen soft, non-tender, nondistended. MUSCULOSKELETAL: No cyanosis, or edema. BACK: Nontender without obvious deformity. No CVA tenderness. A/P Assessment and Plan 77-year-old male with history of TBI 2015, dementia, diabetes, seizure disorder , CAD, hypertension, GERD, presents from [facility] for worsening weakness and decreased appetite. The patient is currently awake, alert, but nonverbal this morning and will not answer any questions. He does follow some simple commands such as squeezing hands, and moving feet. //Toxic encephalopathy: Suspect secondary to Dilantin toxicity, however rule out other etiologies including CVA or infection. Afebrile, no leukocytosis. -Head CT shows previous bilateral craniotomy with stable focal encephalomalacia left frontal lobe and stable frontal subdural hygromas; otherwise no acute intracranial abnormalities -CXR images reviewed with no acute findings; stable elevated left hemidiaphragm -CBC, BMP, and UA unremarkable. -Continue to monitor = Dilantin level 37 down from 49 on admission. Continue IV fluids. Continue to monitor. = 4/6. Dilantin level 34. Improving. Continue IV fluids. Speech has approved for diet. Continue to monitor. //Dilantin toxicity: Dilantin level significantly elevated at 39.5 upon arrival. -Hold patient's Dilantin -Neuro checks, seizure precautions -Monitor daily dilantin level = Dilantin level 34 down from 49 on admission. Continue IV fluids. Continue to monitor. //Failure to Thrive/Poor Oral Intake: Likely multifactorial secondary to history of dementia, CVA, and now with acute encephalopathy. -Consult dietitian and ST -Consult PT/OT -11/01 likely in part secondary to Dilantin toxicity. IV fluids switch normal saline. Continue to follow labs. //Dementia: chronic -continue patient's aricept, namenda //HLD: chronic -continue patient's statin //GERD: chronic -continue patient's PPI //Diabetes Mellitus: chronic -continue patient's levemir if tolerating oral intake -monitor accu-checks and cover with SSI //DVT Prophylaxis: Heparin sq Discharge Planning back to SNF when encephalopathy resolved. Based on Dilantin level rate of decrease, may be several more days. Mannie Milton MD Nov 01, 2017 10:06
[2017-11-01] MEDS: SODIUM CHLOR 0.9% 1000 ML INJ 1,000 ML IV SCH ×2 (10:47→21:29)
[2017-11-01 13:24] VITALS: BP 141/74; PULSE 89; RESP 16; TEMP 98.6; O2SAT 96
[2017-11-01 17:55] VITALS: BP 144/83; PULSE 88; RESP 16; TEMP 98; O2SAT 98
[2017-11-01] MEDS: PRAVASTATIN SOD 80 MG TAB PO SCH (21:30)
[2017-11-02] VITALS (8 sets, daily range): BP systolic 107–159; BP diastolic 57–86; PULSE 73–95; RESP 16–22; TEMP 96.7–98.8; O2SAT 95–99
[2017-11-02] MEDS: HEPARIN SODIUM - SQ 10,000 UNITS/ML VIAL SQ SCH ×3 (00:27→23:28)
[2017-11-02] MEDS: INSULIN ASPART SUPPLEMENTAL SCALE SQ SCH ×4 (08:00→22:35)
[2017-11-02] MEDS: DOCUSATE SODIUM 50 MG/SENNA 8.6 MG TAB PO SCH ×2 (09:00→20:53)
[2017-11-02] MEDS: SODIUM CHLORIDE 0.9% FLUSH 10 ML FLUSH IV FLUSH SCH ×2 (09:00→20:54)
[2017-11-02] MEDS: TOLTERODINE TARTRATE 2 MG CAP LA PO SCH ×2 (10:29→20:53)
[2017-11-02] MEDS: MEMANTINE HCL 10 MG TAB PO SCH ×2 (10:30→20:53)
[2017-11-02] MEDS: SODIUM CHLOR 0.9% 1000 ML INJ 1,000 ML IV SCH (10:30)
[2017-11-02] MEDS: PANTOPRAZOLE SOD 20 MG DELAYED RELEASE TAB PO SCH (10:30)
[2017-11-02] MEDS: INSULIN DETEMIR 100 UNITS/ML VIAL SQ SCH (10:30)
[2017-11-02] MEDS: DONEPEZIL HCL 5 MG TAB PO SCH (10:31)
[2017-11-02 13:15] LABS: AUTOMATED NEUTROPHIL # 4.1 TH/MM3 (1.8-7.7); BASOPHIL % 0.6 % (0.0-2.0); EOSINOPHIL # 0.3 TH/MM3 (0-0.4); EOSINOPHIL % 4.3 % (0.0-4.0); HEMATOCRIT 38.7 % (39.0-51.0); HEMOGLOBIN 12.9 GM/DL (13.0-17.0); LYMPH % 27.6 % (9.0-44.0); MEAN CELL VOLUME 85.4 FL (80.0-100.0); MEAN CORPUSCULAR HEMOGLOBIN 28.5 PG (27.0-34.0); MEAN CORPUSCULAR HGB CONC 33.4 % (32.0-36.0); MEAN PLATELET VOLUME 7.8 FL (7.0-11.0); MONO % 10.2 % (0.0-8.0); MONOCYTE # 0.7 TH/MM3 (0-0.9); NEUT % 57.3 % (16.0-70.0); PLATELET COUNT 270 TH/MM3 (150-450); RED BLOOD COUNT 4.53 MIL/MM3 (4.50-5.90); RED CELL DISTRIBUTION WIDTH 15.5 % (11.6-17.2); WHITE BLOOD COUNT 7.2 TH/MM3 (4.0-11.0)
[2017-11-02 13:47] LABS: ALBUMIN 2.7 GM/DL (3.4-5.0); BICARBONATE 27.8 MEQ/L (21.0-32.0); CALCIUM 7.9 MG/DL (8.5-10.1); CREATININE 0.86 MG/DL (0.60-1.30); MAGNESIUM 1.6 MG/DL (1.5-2.5); PHENYTOIN (DILANTIN) 22.7 MCG/ML (10.0-20.0)
--- NOTE | 2017-11-02 15:04 | HHI.PR ---
Subjective Remarks Patient is awake and alert Denies cp/sob, dizziness vital signs stable Objective Vitals Vital Signs Date Time Temp Pulse Resp B/P (MAP) Pulse Ox O2 Delivery O2 Flow Rate FiO2 11/02/17 11:40 98.8 89 18 146/71 (96) 95 11/02/17 08:00 98.5 82 16 133/73 (93) 97 11/02/17 03:02 97.9 88 18 145/78 (100) 95 11/02/17 00:21 96.7 95 20 159/86 (110) 96 11/01/17 22:00 Room Air 11/01/17 17:55 98.0 88 16 144/83 (103) 98 I/O 11/01/17 11/01/17 11/01/17 11/02/17 11/02/17 11/02/17 07:00 15:00 23:00 07:00 15:00 23:00 # Voids 3 # Bowel Movements 2 Result Diagram: 11/02/17 1209 11/02/17 1209 Imaging Last Impressions Chest X-Ray 10/29/172055 Signed Impressions: Service Date/Time: Sunday, October 29, 2017 22:13 - CONCLUSION: 1. No active disease. Stable elevated left hemidiaphragm compared with October 10 and April 2017. Augustine Kelly MD Head CT 10/29/17 0000 Signed Impressions: Service Date/Time: Sunday, October 29, 2017 21:58 - CONCLUSION: 1. Previous bilateral craniotomy with stable focal encephalomalacia left frontal lobe and stable frontal subdural hygromas. 2. 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 3. No acute intracranial abnormalities. Augustine Kelly MD Objective Remarks Awake and alert, nad clear lungs BL S1S2 RRR, no MRG abdomen is soft, nt, nd no edema in lower extremities. Procedures none Medications and IVs Current Medications Medications (Trade) Dose Ordered Sig/Rylie Route Start Time Stop Time Status Last Admin (NS Flush) 2 ml UNSCH PRN IV FLUSH 10/30/17 00:00 (NS Flush) 2 ml BID IV FLUSH 10/30/17 09:00 10/30/17 21:53 (Tylenol) 650 mg Q4H PRN PO 10/30/17 00:00 (Zofran Inj) 4 mg Q6H PRN IVP 10/30/17 00:00 (Heparin Inj) 5,000 units Q12H SQ 10/30/17 00:00 11/02/17 10:30 (Narcan Inj) 0.4 mg UNSCH PRN IV PUSH 10/30/17 00:00 (Vy-Colace) 1 tab BID PO 10/30/17 09:00 11/01/17 09:45 (Milk Of Magnesia Liq) 30 ml Q12H PRN PO 10/30/17 00:00 (Senokot) 17.2 mg Q12H PRN PO 10/30/17 00:00 (Dulcolax Supp) 10 mg DAILY PRN RECTAL 10/30/17 00:00 (Lactulose Liq) 30 ml DAILY PRN PO 10/30/17 00:00 (Aricept) 2.5 mg DAILY PO 10/30/17 09:00 11/02/17 10:31 (Namenda) 10 mg DAILY PO 10/30/17 09:00 11/02/17 10:30 (Levemir Inj) 10 units DAILY SQ 10/30/17 09:00 11/02/17 10:30 (Protonix) 20 mg DAILY PO 10/30/17 09:00 11/02/17 10:30 (Detrol La) 2 mg BID PO 10/30/17 09:00 11/02/17 10:29 (Pravachol) 80 mg HS PO 10/30/17 21:00 11/01/17 21:30 (D50w (Vial) Inj) 50 ml UNSCH PRN IV PUSH 10/30/17 00:00 (Glucagon Inj) 1 mg UNSCH PRN OTHER 10/30/17 00:00 (NovoLOG SUPPLEMENTAL SCALE) 1 ACHS SLIDING SCALE SQ 10/30/17 08:00 11/01/17 18:04 Sodium Chloride 1,000 ml @ 84 mls/hr [id number] IV 11/01/17 11:00 11/02/17 10:30 A/P Problem List: (1) Dilantin toxicity ICD Code: T42.0X1A - Poisoning by hydantoin derivatives, accidental ( unintentional), initial encounter Status: Acute (2) Dementia ICD Code: F03.90 - Unspecified dementia without behavioral disturbance Status: Acute Assessment and Plan 77-year-old male with history of TBI 2015, dementia, diabetes, seizure disorder , CAD, hypertension, GERD, presents from [facility] for worsening weakness and decreased appetite. The patient is currently awake, alert, but nonverbal this morning and will not answer any questions. He does follow some simple commands such as squeezing hands, and moving feet. 1. Toxic encephalopathy: - Due to Dilantin toxicity. Patient afebrile and without leukocytosis. -Head CT shows previous bilateral craniotomy with stable focal encephalomalacia left frontal lobe and stable frontal subdural hygromas; otherwise no acute intracranial abnormalities -CXR images reviewed with no acute findings; stable elevated left hemidiaphragm -CBC, BMP, and UA unremarkable. -Continue to monitor - 4/7 toxic encephalopathy improving. Dilantin level trending down however still elevated. consult neurology for recommendation on dose of dilatin to be restarted. 2. Dilantin toxicity: Dilantin level significantly elevated at 39.5 upon arrival. -dilantin held. -Neuro checks, seizure precautions -Monitor daily dilantin level - 7 Dilantin Level still elevated but trending down. continue to monitor Dilantin level. 3. Failure to Thrive/Poor Oral Intake: Likely multifactorial secondary to history of dementia, CVA, and now with acute encephalopathy. -Consult dietitian and ST -Consult PT/OT 11/02 dietitian recommends 2200 ADA pured diet. Glucerna shakes 3 times daily. 4. Dementia: chronic -continue patient's aricept, namenda 5. HLD: chronic -continue patient's statin 6. GERD: chronic -continue patient's PPI 7. Diabetes Mellitus: chronic -continue patient's levemir. -monitor accu-checks and cover with SSI - 11/02 blood sugars stable. 8. DVT Prophylaxis: Heparin sq Discharge Planning Possible DC in 1 to 2 days once Dilantin level Krishna Dang MD Nov 02, 2017 15:04
--- NOTE | 2017-11-02 20:07 | MB ---
cc: Brody Mccain MD, David J MD DATE: 11/02/2017 HISTORY OF PRESENT ILLNESS: The patient is a 77-year-old man who was seen here by Dr. Landers in September. He had been seen by Dr. Davis in 2008, transient right hemisensory symptoms, some ataxia. Dr. Salazar saw him in 2014 with subdural hematoma, type 2 diabetes, hypertension, bilateral frontotemporal parietal craniotomy, most recently seen by Dr. Landers 10/08/2017. He had a seizure a couple years ago and he had a fall and the subdurals. He had been on Dilantin 100 twice a day, never had any problems. Then the week prior, he had a seizure. Dilantin was increased to 200/300. He had generalized weakness, came into the ER. Dilantin level was 20. He usually sees Dr. Davis. There is a history of cognitive impairment, on Namenda and Aricept. He is also diabetic on insulin. He was quiet, verbalized a little bit, seemed confused. He moved all [address] was negative. His white count was 16,000. Dilantin was 20, creatinine 1.34. He was felt to have some dementia. They put Dilantin back on 100/200. He felt he was back to baseline. He was admitted on 10/29/2017 from [facility] with decreased appetite, weakness. I am asked to see him today for Dilantin toxicity. REVIEW OF SYSTEMS: He really cannot give any. Evidently, he lives in [facility]. PAST MEDICAL HISTORY: As above, hypertension, CAD, cardiac catheterization. MEDICATIONS ON ADMISSION: 1. Dilantin 200 q.i.d. 2. Tylenol. 3. Dulcolax. 4. Aricept 2.5 a day. 5. Levemir insulin. 6. Amantadine 10 once a day. 7. Glipizide 8. Oxybutynin. 9. Zocor. 10. Omeprazole. PHYSICAL EXAMINATION: VITAL SIGNS: Afebrile, 89, 18, 146/71. NECK: There were no carotid bruits. HEART: Regular rhythm. I did not detect a murmur. VITAL SIGNS: He is awake and alert. His visual patiño are full. His face is symmetric. He is very bradykinetic. He has marked increased tone in bilateral upper extremities at the elbows, but I can straighten his elbows. There is quite a bit of spasticity. There is some increased tone in the lower extremities. The toes are equivocal. There is no ankle clonus. DTRs are 1+ and symmetric. His speech is slow. He knows he lives in [facility]. Does not know the year. LABORATORY DATA: CBC is normal. Basic metabolic profile has been normal. Corrected calcium 7.9, had been normal at 9. Phosphorus and magnesium are normal. LFTs have been normal. Ammonia level normal. Albumin 2.7. B12 was normal last April as was his thyroid. His Dilantin level was 39 when he came in, now down to 22 today. BUZZ has been negative in the past. IMAGING STUDIES: A CAT scan of his brain when he came in showed the bilateral craniotomy, left frontal lobe encephalomalacia, stable subdural hygromas. He had an MRI of his brain done in September which was stable, nothing acute. ASSESSMENT AND PLAN: Dilantin toxicity. I looked at his CT. He has some prominent ventricular size. He has the subdurals. There may be a slight subacute component on a chronic component on the left versus a pseudomembrane within that area. I note he had a carotid ultrasound done recently that was negative in September and an MRA wilton of [place] was negative. The ventricular size was elevated. It was enlarged at that time in that changes were seen in the subdurals at that time. Looking back to a CAT scan from 2014, vents were a little bit smaller then and that was at the time of the acute subdural. In 04/2017, CAT scan revealing the ventricular size at that time. They were enlarged as they are now. IMPRESSION: Dilantin toxicity. At this point, I think he should probably come off the Dilantin. It is not a great medicine for him fpc. I noticed the last electroencephalogram, he had some tiny sharp C4 prior, although he has had a craniotomy. He could have a breach rhythm. We will recheck an electroencephalogram. Stop the Dilantin, increase his Namenda to twice a day. He should improve as his Dilantin level comes down. MD UNA Quiñonez/SA/rh , 04:17 PM , 05:27 PM
[2017-11-02] MEDS: PRAVASTATIN SOD 80 MG TAB PO SCH (20:53)
[2017-11-03 04:41] VITALS: BP 149/81; PULSE 86; RESP 18; TEMP 97.7; O2SAT 98
[2017-11-03] MEDS: SODIUM CHLOR 0.9% 1000 ML INJ 1,000 ML IV SCH ×2 (05:20→10:40)
--- NOTE | 2017-11-03 07:37 | HHI.PR ---
Subjective Remarks no sz overnoc Objective Vital Signs Date Time Temp Pulse Resp B/P (MAP) Pulse Ox O2 Delivery O2 Flow Rate FiO2 11/03/17 04:41 97.7 86 18 149/81 (103) 98 11/02/17 23:51 97.0 84 16 154/86 (108) 98 11/02/17 20:00 98.3 90 17 131/65 (87) 97 11/02/17 16:04 98.6 73 22 107/57 (74) 99 11/02/17 15:45 98.7 86 18 138/74 (95) 96 11/02/17 11:40 98.8 89 18 146/71 (96) 95 11/02/17 08:00 98.5 82 16 133/73 (93) 97 I/O 11/02/17 11/02/17 11/02/17 11/03/17 11/03/17 11/03/17 07:00 15:00 23:00 07:00 15:00 23:00 # Voids 3 # Bowel Movements 2 Result Diagram: 11/02/17 1209 11/02/17 1209 Objective Remarks more alert voice stronger moves all well Assessment and Plan Assessment and Plan imp dil off level pend oob kedeloresra started no more dilantin change to dae office Brody Mccain MD Nov 03, 2017 07:37
[2017-11-03 08:00] VITALS: BP 126/71; PULSE 86; RESP 17; TEMP 97.6; O2SAT 97
[2017-11-03] MEDS: INSULIN ASPART SUPPLEMENTAL SCALE SQ SCH ×4 (08:00→21:00)
[2017-11-03] MEDS: DONEPEZIL HCL 5 MG TAB PO SCH (08:26)
[2017-11-03] MEDS: DOCUSATE SODIUM 50 MG/SENNA 8.6 MG TAB PO SCH ×2 (08:26→20:25)
[2017-11-03] MEDS: TOLTERODINE TARTRATE 2 MG CAP LA PO SCH ×2 (08:26→20:25)
[2017-11-03] MEDS: PANTOPRAZOLE SOD 20 MG DELAYED RELEASE TAB PO SCH (08:26)
[2017-11-03] MEDS: SODIUM CHLORIDE 0.9% FLUSH 10 ML FLUSH IV FLUSH SCH ×2 (08:26→20:25)
[2017-11-03] MEDS: MEMANTINE HCL 10 MG TAB PO SCH ×2 (08:26→20:26)
[2017-11-03] MEDS: INSULIN DETEMIR 100 UNITS/ML VIAL SQ SCH (08:52)
[2017-11-03] MEDS ORDERED: LEVE500 PO (10:41)
--- NOTE | 2017-11-03 10:45 | HHI.DCPOC ---
Discharge Care Plan Diagnosis: (1) HLD (hyperlipidemia) (2) HTN (hypertension) (3) Toxic encephalopathy (4) Failure to thrive in adult (5) Dementia (6) DM (diabetes mellitus) Goals to Promote Your Health * To prevent worsening of your condition and complications * To maintain your health at the optimal level Directions to Meet Your Goals Take your medications as prescribed Follow your dietary instruction Follow activity as directed Keep your appointments as scheduled Take your immunizations and boosters as scheduled If your symptoms worsen call your PCP, if no PCP go to Urgent Care Center or Emergency Room Smoking is Dangerous to Your Health. Avoid second hand smoke Call the 24-hour hour crisis hotline for domestic abuse at Krishna Dang MD Nov 03, 2017 10:45
--- NOTE | 2017-11-03 10:49 | HHI.FF ---
Face to Face Verification Diagnosis: (1) DM (diabetes mellitus) (2) Dilantin toxicity (3) Dementia (4) Failure to thrive in adult (5) Toxic encephalopathy (6) HTN (hypertension) (7) HLD (hyperlipidemia) Physical Therapy Order: Improve ambulation, Strength and gait training Home Health Nursing Order: Nursing assessment with vital signs I have seen patient Rene Kurtz on 11/03/17. My clinical findings support the need for the requested home health care services because: Limited ability to care for self Need for psychosocial assistance Impaired cognition/judgement High risk of falls I certify that my clinical findings support that this patient is homebound because: Unsteady gait/balance Unsafe to leave home unassisted Unable to use public transportation Krishna Dang MD Nov 03, 2017 10:49
--- NOTE | 2017-11-03 11:03 | HHI.DS ---
Discharge Summary Admission Date Nov 01, 2017 at 17:45 Discharge Date: Nov 03, 2017 Admitting Diagnosis Failure to thrive, dementia (1) Dilantin toxicity ICD Code: T42.0X1A - Poisoning by hydantoin derivatives, accidental ( unintentional), initial encounter Status: Acute (2) Dementia ICD Code: F03.90 - Unspecified dementia without behavioral disturbance Status: Acute Procedures none Brief History - From Admission Written by Kalyani Allen, acting as scribe for Dr. Milton on 10/30/17 at 09:49. 77-year-old male with history of TBI 2014, dementia, diabetes, seizure disorder , CAD, hypertension, GERD, presents from [facility] for worsening weakness and decreased appetite. The patient is currently awake, alert, but nonverbal this morning and will not answer any questions. He does follow some simple commands such as squeezing hands, and moving feet. The patient was recently admitted to the hospital in September 2017. Evaluation of suspected TIA, with Dilantin toxicity, and discharge to SNF on 10/14. While at SNF over the past several days he reportedly has had a decline in activity participation and appetite. They believe he has not ate or drank anything in the past few days. No other information was provided. Patient unable to answer review of systems. Upon arrival to the ED, Dilantin level significantly elevated at 39.5. CBC, BMP , and UA unremarkable. 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 CBC/BMP: 11/02/17 1209 11/02/17 1209 Significant Findings Laboratory Tests Test 10/31/17 15:50 11/01/17 04:43 11/02/17 12:09 11/03/17 09:20 Phenytoin (Dilantin) Level 37.3 MCG/ML (10.0-20.0) 33.8 MCG/ML (10.0-20.0) 22.7 MCG/ML (10.0-20.0) 20.6 MCG/ML (10.0-20.0) Monocytes (%) (Auto) 9.7 % (0.0-8.0) 10.2 % (0.0-8.0) Eosinophils (%) (Auto) 4.9 % (0.0-4.0) 4.3 % (0.0-4.0) Random Glucose 157 MG/DL (74-106) 158 MG/DL (74-106) Estimat Glomerular Filtration Rate 81 ML/MIN (>89) Hemoglobin 12.9 GM/DL (13.0-17.0) Hematocrit 38.7 % (39.0-51.0) Blood Urea Nitrogen 6 MG/DL (7-18) Albumin 2.7 GM/DL (3.4-5.0) Calcium Level 7.9 MG/DL (8.5-10.1) Imaging Last Impressions Chest X-Ray 10/29/172055 Signed Impressions: Service Date/Time: Sunday, October 29, 2017 22:13 - CONCLUSION: 1. No active disease. Stable elevated left hemidiaphragm compared with October 10 and April 2017. Augustine Kelly MD Head CT 10/29/17 0000 Signed Impressions: Service Date/Time: Sunday, October 29, 2017 21:58 - CONCLUSION: 1. Previous bilateral craniotomy with stable focal encephalomalacia left frontal lobe and stable frontal subdural hygromas. 2. 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 3. No acute intracranial abnormalities. Augustine Kelly MD PE at Discharge Awake and alert, nad clear lungs BL S1S2 RRR, no MRG abdomen is soft, nt, nd no edema in lower extremities. Pt update on day of discharge No seizure episodes. The patient is pleasantly confused. Denies any chest pain or shortness of breath. Hospital Course The patient was admitted to the observation unit found to have toxic encephalopathy due to Dilantin toxicity. Head CT as described above did not show any acute intracranial abnormalities. Chest x-ray did not show any acute findings. UA unremarkable. Dilantin was held and encephalopathy improved. Neurology was consulted and recommended discontinuation of Dilantin and starting Keppra. Recommend outpatient follow-up with neurology. Dietitian was consulted due to the patient having a poor oral intake. Dietitian recommended increasing diet to 2288-calorie with pured diet. Also recommended Glucerna shakes 3 times a day. Patient's dementia remained stable. Patient was continued on Namenda. Statin was continued for patient's hyperlipidemia. PPI was continued for patient's GERD. Patient has diabetes mellitus and is currently on Levemir at home. Levemir was continued and blood sugars remained stable. DVT prophylaxis was provided with SCDs and heparin subcutaneous. Reconsult PT for evaluation prior to discharge. Pt Condition on Discharge: Stable Discharge Time: > 30 minutes Discharge Instructions Speech Therapy-Diet Recommends: Honey Thickened Liquids, Pureed Follow up Referrals: Neurology - 2 Weeks with Brody Mccain MD PCP Follow-up - 2 Weeks New Medications: Levetiracetam (Keppra) 500 Mg Tab 1000 MG PO Q12HR for Seizure Control, #60 TAB Continued Medications: Acetaminophen (Tylenol) 325 Mg Tab 325 MG PO Q4H PRN for PAIN SCALE 1 TO 7, TAB 0 Refills Bisacodyl Supp (Dulcolax Supp) 10 Mg Supp 10 MG RECTAL DAILY PRN for CONSTIPATION, #12 SUPP 0 Refills Donepezil HCl (Aricept) 5 Mg Tablet 2.5 MG PO DAILY for dementia, #30 TAB Glipizide (Glipizide) 10 Mg Tab 10 MG PO DAILY for Blood Sugar Management, #30 TAB 0 Refills Take 30 minutes before a meal Insulin Aspart Inj (Novolog Inj) 1,000 Unit/10 Ml Vial 1-9 UNITS SQ ACHS for Blood Sugar Management, #10 ML 0 Refills Max dose at bedtime:( )units; sugars less than 70,(0)units; sugars 150-199,(1) unit; sugars 200-249,(3) units; sugars 250-299,(5) units; sugars 300-349,(7) units; sugars greater than 349,(9) units Insulin Detemir Inj (Levemir Flextouch Pen Inj) 300 unit/3 ML Pen 10 UNITS SQ DAILY for Blood Sugar Management, #5 PEN 0 Refills Memantine (Memantine) 10 Mg Tab 10 MG PO DAILY for Alzheimer's Dementia, TAB 0 Refills Multiple Vitamins W/ Minerals (Centrum Silver) 400 Mcg-250 Mcg Chw 1 TAB PO DAILY Omeprazole (Omeprazole) 20 Mg Tab 20 MG PO DAILY, #30 TAB 0 Refills Oxybutynin ER 24 HR (Oxybutynin ER 24 HR) 5 Mg Tab 5 MG PO BID for Overactive Bladder, TAB 0 Refills Simvastatin (Zocor) 40 Mg Tab 40 MG PO HS for Cholesterol Management, #30 TAB 0 Refills Discontinued Medications: Phenytoin Liq (Phenytoin Liq) 125 Mg/5 Ml Andressa 200 MG PO QID for Control Seizures, #237 ML 0 Refills Krishna Dang MD Nov 03, 2017 11:03
[2017-11-03 12:00] VITALS: BP 145/74; PULSE 90; RESP 17; TEMP 97.9; O2SAT 97
[2017-11-03] MEDS: HEPARIN SODIUM - SQ 10,000 UNITS/ML VIAL SQ SCH (13:18)
--- NOTE | 2017-11-03 15:20 | HHI.FF ---
Face to Face Verification Diagnosis: (1) Hypertension (2) Thrombocytosis (3) DM (diabetes mellitus) (4) Seizure (5) Dilantin toxicity (6) Toxic encephalopathy Physical Therapy Order: Improve ambulation, Strength and gait training Home Health Nursing Order: Nursing assessment with vital signs I have seen patient Rene Kurtz on 11/03/17. My clinical findings support the need for the requested home health care services because: Limited ability to care for self Need for psychosocial assistance Impaired cognition/judgement High risk of falls I certify that my clinical findings support that this patient is homebound because: Impaired cognitive ability/safety Unsteady gait/balance Unsafe to leave home unassisted Unable to use public transportation Krishna Dang MD Nov 03, 2017 15:20
[2017-11-03 16:00] VITALS: BP 121/70; PULSE 92; RESP 17; TEMP 98.1; O2SAT 96
[2017-11-03] MEDS: PRAVASTATIN SOD 80 MG TAB PO SCH (20:25)
[2017-11-03] MEDS ORDERED: levETIRAcetam 500 MG TAB PO SCH (21:00)
--- NOTE | 2017-11-04 08:25 | MG ---
cc: Brody Mccain MD ELECTROENCEPHALOGRAM NUMBER: [id number]. DIAGNOSIS: Left frontal lobe encephalomalacia, bilateral subdurals, Aricept. DESCRIPTION: 7-8 Hz, symmetric posterior rhythm is seen. Recording overall synchronous and symmetric. Some mild diffuse theta slowing is at times noted. I do not see any focal abnormality. No epileptiform or seizure activity is noted. Hyperventilation is not performed. Photic stimulation was performed without significant posterior driving. IMPRESSION: Mild diffuse theta slowing, consistent with mild diffuse encephalopathy, but no focal abnormalities were noted. No seizure activity was seen. MD UNA Quiñonez/ALYSSA , 09:18 PM , 09:45 PM
== END 2017-11-04 00:11 | disposition home health service (06) | DRG 93 ==
LOC: NEPC 20:14 → NEDA 23:11 → NEDH 10-30 03:11 → NEPGCP 10-30 12:13 → OBSVTOIN 11-01 17:45
PROVIDERS: ADMIT Hospitalist; ATTEND Hospitalist
DX: G92 Toxic encephalopathy (principal); T42.0X5A Adverse effect of hydantoin derivatives, initial encounter; G93.89 Other specified disorders of brain; G30.9 Alzheimer's disease, unspecified; F02.80 Dementia in other diseases classified elsewhere, unspecified severity, without behavioral disturbance, psychotic disturbance, mood disturbance, and anxiety; E11.9 Type 2 diabetes mellitus without complications; I10 Essential (primary) hypertension; R05 Cough; I25.10 Atherosclerotic heart disease of native coronary artery without angina pectoris; K21.9 Gastro-esophageal reflux disease without esophagitis; D18.1 Lymphangioma, any site; R25.8 Other abnormal involuntary movements; G40.909 Epilepsy, unspecified, not intractable, without status epilepticus; E78.5 Hyperlipidemia, unspecified; R27.0 Ataxia, unspecified; Z87.820 Personal history of traumatic brain injury; Z79.4 Long term (current) use of insulin; Z86.73 Personal history of transient ischemic attack (TIA), and cerebral infarction without residual deficits
CPT/HCPCS: 70450; 71045; 80048; 80053; 80069; 80185; 81001; 82140; 82948; 83735; 85025; 93005; 94664; 95819; 96360; 96361; 96372; G0378; G8987-GP; G8988-GP; G8996-GN; G8997-GN; J1644; J1815; J3480; J7030; J7040; P9612

== ENCOUNTER 2017-11-05 12:57 | Inpatient (IN) | payer OTHER, MEDICARE ==
[~2017-11-05] VITALS: Ht 182.9 cm; Wt 73.0 kg
[2017-11-05] VITALS (11 sets, daily range): BP systolic 134–168; BP diastolic 73–86; PULSE 112–122; RESP 18–20; TEMP 98.7–100.2; O2SAT 86–98
[~2017-11-05 12:57] MED LIST changes: +DULC10SU3 RECTAL; +LEVE500 PO; -PHEN100C PO; -PHEN200C3 PO; +TYLE325T PO
[2017-11-05] MEDS ORDERED: IOHEXOL 350 MG/ML 10 ML VIAL (for RAD DIAG) IVCONTRAST ONE (12:58)
[2017-11-05] MEDS ORDERED: SODIUM CHLORIDE 0.9% FLUSH 10 ML FLUSH IVF PRN (13:30)
--- NOTE | 2017-11-05 13:40 | PD ---
HPI Chief Complaint: Respiratory Symptoms Time Seen by Provider: 13:14 Travel History International Travel<30 days: No Contact w/Intl Traveler<30days: No Traveled to known affect area: No History of Present Illness HPI Patient presents to the emergency department from [facility] for shortness of breath. and son states that patient was recently discharged from the hospital, but they do not feel like he was ready to come home. He was sent from home TO ER by his home health nurse for shortness of breath that the family describes as being cough and congested. He was given a DuoNeb and albuterol in route by EMS. They reported O2 sat of 97-98% after duoneb but high 80s/low 90s prior. Patient is demented and is not able to communicate to give a more detailed history. reports that patient has had a subjective fever. She denies any vomiting but states that patient has been gagging a lot. As he is nonverbal he cannot communicate if he is having any pain anywhere per family. states he has not been eating/drinking well. PFSH Past Medical History Alzheimer's Disease: Yes Arthritis: No Asthma: No Autoimmune Disease: No Blood Disorders: No Anxiety: No Depression: No Heart Rhythm Problems: No Cancer: No Cardiac Catheterization: Yes Cardiovascular Problems: Yes High Cholesterol: No Chemotherapy: No Chest Pain: Yes Congestive Heart Failure: No COPD: No Cerebrovascular Accident: Yes Coronary Artery Disease: Yes Dementia: Yes Diabetes: Yes Diminished Hearing: No Endocrine: Yes Gastrointestinal Disorders: Yes (GERD) GERD: Yes Genitourinary: Yes (HX UTI) Hepatitis: No Hiatal Hernia: No Hypertension: Yes Immune Disorder: No Kidney Stones: No Musculoskeletal: No Neurologic: Yes (SDH, SEIZURES, ENCEPAHLOPATHY) Psychiatric: No Reproductive: No Respiratory: No Immunizations Current: Yes Migraines: No Myocardial Infarction: No Radiation Therapy: No Renal Failure: No Seizures: Yes Sickle Cell Disease: No Sleep Apnea: No Thyroid Disease: No Ulcer: No PNEUMOCCOCAL Vaccine (Year): 2 Past Surgical History Abdominal Surgery: No AICD: No Arteriovenous Shunt: No Cardiac Surgery: No Ear Surgery: No Endocrine Surgery: No Eye Surgery: No Genitourinary Surgery: No Gynecologic Surgery: No Insulin Pump: No Joint Replacement: No Neurologic Surgery: Yes (BILATERAL CRANIOTOMY) Oral Surgery: No Pacemaker: No Thoracic Surgery: No Other Surgery: Yes Family History Family Hypercholesterolemia: Yes Social History Alcohol Use: No Tobacco Use: No Substance Use: No Allergies-Medications (Allergen,Severity, Reaction): Coded Allergies: No Known Allergies (Verified Allergy, Unknown, 10/29/17) Reported Meds & Prescriptions Reported Meds & Active Scripts Active Keppra (Levetiracetam) 500 Mg Tab 1,000 Mg PO Q12HR Novolog Inj (Insulin Aspart) 1,000 Unit/10 Ml Vial 1-9 Units SQ ACHS Max dose at bedtime:( )units; sugars less than 70,(0)units; sugars 150-199,(1) unit; sugars 200-249,(3) units; sugars 250-299,(5) units; sugars 300-349,(7) units; sugars greater than 349,(9) units Levemir Flextouch Pen Inj (Insulin Detemir) 300 unit/3 ML Pen 10 Units SQ DAILY Aricept (Donepezil HCl) 5 Mg Tablet 2.5 Mg PO DAILY Reported Dulcolax Supp (Bisacodyl) 10 Mg Supp 10 Mg RECTAL DAILY PRN Tylenol (Acetaminophen) 325 Mg Tab 325 Mg PO Q4H PRN Memantine 10 Mg Tab 10 Mg PO DAILY Glipizide 10 Mg Tab 10 Mg PO DAILY Take 30 minutes before a meal Oxybutynin ER 24 HR (Oxybutynin Chloride) 5 Mg Tab 5 Mg PO BID Centrum Silver (Multiple Vitamins W/ Minerals) 400 Mcg-250 Mcg Chw 1 Tab PO DAILY Zocor (Simvastatin) 40 Mg Tab 40 Mg PO HS Omeprazole 20 Mg Tab 20 Mg PO DAILY Review of Systems Except as stated in HPI: all other systems reviewed are Neg Physical Exam Narrative GENERAL: No acute distress. SKIN: Focused skin assessment warm/dry. HEAD: Atraumatic. Normocephalic. EYES: Pupils equal and round. No scleral icterus. No injection or drainage. ENT: No nasal bleeding or discharge. Poor dentition. Dry MM. NECK: Trachea midline. No JVD. CARDIOVASCULAR: Regular rate and rhythm. No murmur appreciated. RESPIRATORY: No accessory muscle use. Coarse breath sounds bilaterally. GASTROINTESTINAL: Abdomen soft, non-tender, nondistended. MUSCULOSKELETAL: No obvious deformities. No cyanosis. No edema. NEUROLOGICAL: Awake and alert. Data Data Last Documented VS Vital Signs Date Time Temp Pulse Resp B/P (MAP) Pulse Ox O2 Delivery O2 Flow Rate FiO2 11/05/17 15:46 115 18 168/76 (106) 94 Nasal Cannula 2.00 11/05/17 13:06 98.7 Orders Orders Complete Blood Count With Diff (11/05/17 13:25) Comprehensive Metabolic Panel (11/05/17 13:25) B-Type Natriuretic Peptide (11/05/17 13:25) D-Dimer (11/05/17 13:25) Act Partial Throm Time (Ptt) (11/05/17 13:25) Prothrombin Time / Inr (Pt) (11/05/17 13:25) Magnesium (Mg) (11/05/17 13:25) Troponin I (11/05/17 13:25) Iv Access Insert/Monitor (11/05/17 13:25) Electrocardiogram (11/05/17 13:25) Ecg Monitoring (11/05/17 13:25) Oximetry (11/05/17 13:25) Oxygen Administration (11/05/17 13:25) Chest, Single Ap (11/05/17 13:25) Sodium Chloride 0.9% Flush (Ns Flush) (11/05/17 13:30) Ct Pulmonary Angiogram (11/05/17 14:56) Arterial Blood Gas (Abg) (11/05/17 ) Sodium Chlorid 0.9% 500 Ml Inj (Ns 500 M (11/05/17 15:15) Iohexol 350 Inj (Omnipaque 350 Inj) (11/05/17 12:58) Heparin Inj (Heparin Inj) (11/05/17 16:45) Heparin-D5w 25,000 U/250 Ml (Heparin-D5w (11/05/17 16:45) Act Partial Throm Time (Ptt) (11/05/17 16:43) Cbc No Diff, Includes Plts (11/05/17 16:43) Cbc No Diff, Includes Plts (11/08/17 06:00) Act Partial Throm Time (Ptt) (11/05/17 23:43) Occult Blood (Hemoccult) Stool (11/05/17 16:43) Admit Order (Ed Use Only) (11/05/17 17:33) Labs Laboratory Tests Test 11/05/17 13:55 11/05/17 16:32 White Blood Count 11.0 TH/MM3 Red Blood Count 5.23 MIL/MM3 Hemoglobin 15.0 GM/DL Hematocrit 44.9 % Mean Corpuscular Volume 85.9 FL Mean Corpuscular Hemoglobin 28.7 PG Mean Corpuscular Hemoglobin Concent 33.4 % Red Cell Distribution Width 15.7 % Platelet Count 246 TH/MM3 Mean Platelet Volume 7.8 FL Neutrophils (%) (Auto) 68.7 % Lymphocytes (%) (Auto) 20.4 % Monocytes (%) (Auto) 8.6 % Eosinophils (%) (Auto) 1.9 % Basophils (%) (Auto) 0.4 % Neutrophils # (Auto) 7.5 TH/MM3 Lymphocytes # (Auto) 2.2 TH/MM3 Monocytes # (Auto) 0.9 TH/MM3 Eosinophils # (Auto) 0.2 TH/MM3 Basophils # (Auto) 0.0 TH/MM3 CBC Comment DIFF FINAL Differential Comment Prothrombin Time 11.1 SEC Prothromb Time International Ratio 1.1 RATIO Activated Partial Thromboplast Time 25.5 SEC D-Dimer Quantitative (PE/DVT) 10.72 MG/L FEU Blood Urea Nitrogen 9 MG/DL Creatinine 1.23 MG/DL Random Glucose 139 MG/DL Total Protein 8.4 GM/DL Albumin 3.1 GM/DL Calcium Level 9.2 MG/DL Magnesium Level 1.8 MG/DL Alkaline Phosphatase 145 U/L Aspartate Amino Transf (AST/SGOT) 20 U/L Alanine Aminotransferase (ALT/SGPT) 27 U/L Total Bilirubin 0.3 MG/DL Sodium Level 140 MEQ/L Potassium Level 3.7 MEQ/L Chloride Level 102 MEQ/L Carbon Dioxide Level 27.5 MEQ/L Anion Gap 11 MEQ/L Estimat Glomerular Filtration Rate 69 ML/MIN Troponin I LESS THAN 0.02 NG/ML B-Type Natriuretic Peptide 6 PG/ML Blood Gas Puncture Site RT RADIAL Blood Gas Patient Temperature 98.6 Blood Gas HCO3 26 mmol/L Blood Gas Base Excess 1.7 mmol/L Blood Gas Oxygen Saturation 90 % Arterial Blood pH 7.43 Arterial Blood Partial Pressure CO2 39 mmHg Arterial Blood Partial Pressure O2 62 mmHG Arterial Blood Oxygen Content 17.1 Vol % Arterial Blood Carboxyhemoglobin 1.0 % Arterial Blood Methemoglobin 0.8 % Blood Gas Hemoglobin 13.6 G/DL Blood Gas Inspired Oxygen 21 % MDM Medical Decision Making Medical Screen Exam Complete: Yes Emergency Medical Condition: Yes Interpretation(s) ECG: Sinus tachy at 112, STD aVF, incomplete RBBB CTA chest: FINDINGS: PULMONARY ARTERIES: Pulmonary emboli are noted within the right main, right upper and right lower lobe pulmonary arteries. Left upper lobe branch embolus is also noted. LUNGS: There is no pneumothorax. Posterior bibasilar atelectasis and/or infiltrates are noted. No concerning pulmonary nodule is visualized. PLEURAE: There is no pleural thickening or pleural effusion. MEDIASTINUM: There is good visualization of the great vessels of the middle mediastinum. No evidence of mediastinal or hilar adenopathy/mass. MUSCULOSKELETAL: Degenerative changes are noted throughout the thoracic spine. MISCELLANEOUS: The visualized upper abdominal organs demonstrate no acute abnormality. There is elevation of the left hemidiaphragm. CONCLUSION: 1. Extensive pulmonary emboli involving the right main, upper and lower lobe pulmonary arteries as well as the left upper lobe pulmonary artery. 2. Elevation of the left hemidiaphragm. 3. Posterior bibasilar atelectasis and/or infiltrates. 4. Degenerative changes throughout the thoracic spine. Last Impressions Chest X-Ray 11/05/17 1325 Signed Impressions: Service Date/Time: Sunday, November 05, 2017 13:31 - CONCLUSION: Stable chest x-ray. No acute cardiopulmonary abnormality is identified. Baldev Christensen MD Differential Diagnosis Differential diagnosis includes pneumonia, ACS, CHF, PE. Narrative Course Patient presents to ER for shortness of breath. He was tachycardic (112-117) and hypoxic (high 80s). He was given 2 breathing treatments by EMS prior to ER arrival. As stated that patient has had decrease po intake and showed signs of dehydration, he was given 500cc IV NS in ER. Workup was positive for mulitple pulmonary emboli. states that he fell in 2013 and had ICH, which they drained via craniotomy. advises he has had no acute bleeding. He had a CT scan last week and MRI in September 2017 that showed hygromas. Spoke to [employer] store operations specialist, Dr. Mendoza, about starting heparin gtt on patient in light of his NSY history. He advised that it was ok to heparinize patient. I attempted to admit to hospitalist, but she was concerned that with the multiple PEs, patient could deteriorate clinically despite being stable now. She requested that I admit patient to skoog operator, who agreed to admit patient. Physician Communication Physician Communication [id number]: Spoke to MARIELA Reb[employer] store operations specialist, in reference to staring heparin gtt considering patient's NSY history on hygromas on CT scan from last week. He advised that it would be ok to start the heparin gtt on this patient. Diagnosis Primary Impression: Pulmonary embolism Qualified Codes: I26.99 - Other pulmonary embolism without acute cor pulmonale Admitting Information Admitting Physician Requests: Admit Condition: Stable Rachel Keith MD Nov 05, 2017 13:40
--- NOTE | 2017-11-05 14:10 | RADRPT ---
EXAM DATE/TIME: 11/05/2017 13:31 [facility] COMPARISON: CHEST SINGLE AP, October 29, 2017, 22:13. INDICATIONS : Short of breath. MEDICAL HISTORY : Hypertension. Diabetes mellitus type II. dementia, stroke, seizures, alzheimer's SURGICAL HISTORY : None. ENCOUNTER: Initial ACUITY: 1 day PAIN SCORE: Non-responsive. LOCATION: Bilateral chest FINDINGS: Portable AP view of the chest demonstrates a normal-sized cardiac silhouette. Lungs are underinflated with elevation of the left hemidiaphragm. There is atelectasis at the lung bases. No effusion, conso lidation, or pneumothorax is identified. Bones and soft tissues demonstrate no acute abnormality. CONCLUSION: Stable chest x-ray. No acute cardiopulmonary abnormality is identified. Baldev Christensen MD on November 05, 2017 at 14:05 Board Certified Radiologist. This report was verified electronically.
[2017-11-05 14:19] LABS: AUTOMATED NEUTROPHIL # 7.5 TH/MM3 (1.8-7.7); BASOPHIL % 0.4 % (0.0-2.0); EOSINOPHIL # 0.2 TH/MM3 (0-0.4); EOSINOPHIL % 1.9 % (0.0-4.0); HEMATOCRIT 44.9 % (39.0-51.0); LYMPH % 20.4 % (9.0-44.0); LYMPHOCYTE # 2.2 TH/MM3 (1.0-4.8); MEAN CELL VOLUME 85.9 FL (80.0-100.0); MEAN CORPUSCULAR HEMOGLOBIN 28.7 PG (27.0-34.0); MEAN CORPUSCULAR HGB CONC 33.4 % (32.0-36.0); MEAN PLATELET VOLUME 7.8 FL (7.0-11.0); MONO % 8.6 % (0.0-8.0); MONOCYTE # 0.9 TH/MM3 (0-0.9); NEUT % 68.7 % (16.0-70.0); PLATELET COUNT 246 TH/MM3 (150-450); RED BLOOD COUNT 5.23 MIL/MM3 (4.50-5.90); RED CELL DISTRIBUTION WIDTH 15.7 % (11.6-17.2)
[2017-11-05 14:30] LABS: ALBUMIN 3.1 GM/DL (3.4-5.0); ALT (GPT) 27 U/L (12-78); AST (GOT) 20 U/L (15-37); BICARBONATE 27.5 MEQ/L (21.0-32.0); BLOOD UREA NITROGEN 9 MG/DL (7-18); CALCIUM 9.2 MG/DL (8.5-10.1); CHLORIDE 102 MEQ/L (98-107); CREATININE 1.23 MG/DL (0.60-1.30); GLOMERULAR FILTRATION RATE 69 ML/MIN (>89); GLUCOSE,RANDOM 139 MG/DL (74-106); MAGNESIUM 1.8 MG/DL (1.5-2.5); SODIUM (NA) 140 MEQ/L (136-145)
[2017-11-05 14:34] LABS: ALKALINE PHOSPHATASE 145 U/L (45-117); TOTAL BILIRUBIN ADULT 0.3 MG/DL (0.2-1.0); TOTAL PROTEIN 8.4 GM/DL (6.4-8.2); TROPONIN I LESS THAN 0.02 NG/ML (0.02-0.05)
[2017-11-05 14:39] LABS: D-DIMER 10.72 MG/L FEU (0.00-0.50); INTERNATIONAL NORMALIZED RATIO 1.1 RATIO; PROTHROMBIN TIME - PATIENT 11.1 SEC (9.8-11.6)
[2017-11-05] MEDS ORDERED: SODIUM CHLORID 0.9% 500 ML INJ 500 ML IV ONE (15:15)
--- NOTE | 2017-11-05 16:30 | RADRPT ---
EXAM DATE/TIME: 11/05/2017 16:10 [facility] COMPARISON: No previous studies available for comparison. INDICATIONS : Short of breath. IV CONTRAST: 75 cc Omnipaque 350 (iohexol) IV RADIATION DOSE: 19.97 CTDIvol (mGy) MEDICAL HISTORY : Cerebrovascular disease. Dementia. Hypertension.diabetic SURGICAL HISTORY : None. ENCOUNTER: Initial ACUITY: 1 day PAIN SCALE: 0/10 LOCATION: chest TECHNIQUE: Volumetric scanning of the chest was performed using a pulmonary embolism protocol MIP images were re constructed. Using automated exposure control and adjustment of the mA and/or kV according to patien t size, radiation dose was kept as low as reasonably achievable to obtain optimal diagnostic quality images. DICOM format image data is available electronically for review and comparison. Follow-up recommendations for detected pulmonary nodules are based at a minimum on nodule size and pa tient risk factors according to Fleischner Society Guidelines. FINDINGS: PULMONARY ARTERIES: Pulmonary emboli are noted within the right main, right upper and right lower lobe pulmonary arteries . Left upper lobe branch embolus is also noted. LUNGS: There is no pneumothorax. Posterior bibasilar atelectasis and/or infiltrates are noted. No concernin g pulmonary nodule is visualized. PLEURAE: There is no pleural thickening or pleural effusion. MEDIASTINUM: There is good visualization of the great vessels of the middle mediastinum. No evidence of mediastin al or hilar adenopathy/mass. MUSCULOSKELETAL: Degenerative changes are noted throughout the thoracic spine. MISCELLANEOUS: The visualized upper abdominal organs demonstrate no acute abnormality. There is elevation of the lef t hemidiaphragm. CONCLUSION: 1. Extensive pulmonary emboli involving the right main, upper and lower lobe pulmonary arteries as we ll as the left upper lobe pulmonary artery. 2. Elevation of the left hemidiaphragm. 3. Posterior bibasilar atelectasis and/or infiltrates. 4. Degenerative changes throughout the thoracic spine. Sabas Hook MD on November 05, 2017 at 16:21 Board Certified Radiologist. This report was verified electronically.
[2017-11-05] MEDS: HEPARIN SODIUM - IV 10,000 UNITS/10 ML VIAL IV ONE ×2 (17:00→17:42)
[2017-11-05] MEDS: HEPARIN-D5W 25,000 U/250 ML 250 ML IV PRN (18:17)
--- NOTE | 2017-11-05 18:45 | HHI.HP ---
HPI Service Critical Care Medicine Primary Care Physician Manjit Jiménez MD Admission Diagnosis PULMONARY EMBOLI Diagnosis: Travel History International Travel<30 Days: No Contact w/Intl Traveler <30 Da: No Traveled to Known Affected Are: No History of Present Illness 77-year-old -[place] male patient presents to the emergency department from [facility] for shortness of breath. and son states that patient was recently discharged from the hospital, but they do not feel like he was ready to come home. He was sent from home to ER by his home health nurse for shortness of breath that the family describes as being cough and congested. He was given a DuoNeb and albuterol in route by EMS. They reported O2 sat of 97-98 % after duoneb but high 80s/low 90s prior. Patient is demented and is not able to communicate to give a more detailed history. reports that patient has had a subjective fever. The CT angiogram performed in the emergency department shows extensive pulmonary emboli involving the right main, upper and lower lobe pulmonary arteries as well as the left upper lobe pulmonary artery. He was started on heparin drip and admitted to ICU. Review of Systems ROS Unable to obtain patient is demented and nonverbal Past Family Social History Allergies: Coded Allergies: No Known Allergies (Verified Allergy, Unknown, 10/29/17) Past Medical History TBI 2014 CVA dementia diabetes seizure disorder CAD hypertension GERD Past Surgical History Bilateral craniotomy Cardiac catheterization Reported Medications Reported Meds & Active Scripts Active Keppra (Levetiracetam) 500 Mg Tab 1,000 Mg PO Q12HR Novolog Inj (Insulin Aspart) 1,000 Unit/10 Ml Vial 1-9 Units SQ ACHS Max dose at bedtime:( )units; sugars less than 70,(0)units; sugars 150-199,(1) unit; sugars 200-249,(3) units; sugars 250-299,(5) units; sugars 300-349,(7) units; sugars greater than 349,(9) units Levemir Flextouch Pen Inj (Insulin Detemir) 300 unit/3 ML Pen 10 Units SQ DAILY Aricept (Donepezil HCl) 5 Mg Tablet 2.5 Mg PO DAILY Reported Dulcolax Supp (Bisacodyl) 10 Mg Supp 10 Mg RECTAL DAILY PRN Tylenol (Acetaminophen) 325 Mg Tab 325 Mg PO Q4H PRN Memantine 10 Mg Tab 10 Mg PO DAILY Glipizide 10 Mg Tab 10 Mg PO DAILY Take 30 minutes before a meal Oxybutynin ER 24 HR (Oxybutynin Chloride) 5 Mg Tab 5 Mg PO BID Centrum Silver (Multiple Vitamins W/ Minerals) 400 Mcg-250 Mcg Chw 1 Tab PO DAILY Zocor (Simvastatin) 40 Mg Tab 40 Mg PO HS Omeprazole 20 Mg Tab 20 Mg PO DAILY Active Ordered Medications Current Medications Medications (Trade) Dose Ordered Sig/Rylie Route PRN Reason Start Time Stop Time Status Last Admin Dose Admin Sodium Chloride (NS Flush) 2 ml UNSCH PRN IVF FLUSH AFTER USING IV ACCESS 11/05/17 13:30 Heparin Sodium/ Dextrose 250 ml @ 14 mls/hr TITRATE PRN IV Coagulation Management 11/05/17 16:45 11/05/17 18:17 Miscellaneous Information Patient in critical care unit? Ass... [id number] .XX 11/06/17 02:00 11/06/17 02:00 Chlorhexidine Gluconate (Chlorhexidine 2% Cloth) 3 pack DAILY@04 TOPICAL 11/06/17 04:00 11/10/17 04:01 11/06/17 02:19 Chlorhexidine Gluconate (Chlorhexidine 2% Cloth) 3 pack UNSCH PRN TOPICAL HYGIENIC CARE 11/06/17 02:00 11/11/17 01:55 Family History Patient unable to provide family history Per EMR, family history reportedly positive for hypercholesterolemia Social History Per EMR- no tobacco, alcohol, or illicit drug use Physical Exam Vital Signs Vital Signs Date Time Temp Pulse Resp B/P (MAP) Pulse Ox O2 Delivery O2 Flow Rate FiO2 11/05/17 18:18 118 20 146/73 (97) 97 Nasal Cannula 2.00 11/05/17 15:46 115 18 168/76 (106) 94 Nasal Cannula 2.00 11/05/17 14:11 112 20 154/86 (108) 95 Nasal Cannula 4.00 11/05/17 14:08 95 Nasal Cannula 4.00 11/05/17 14:08 95 Nasal Cannula 4.00 11/05/17 14:00 86 Room Air 11/05/17 14:00 86 Room Air 11/05/17 13:45 112 20 95 Room Air 11/05/17 13:06 98.7 114 19 143/82 (102) 92 Physical Exam GENERAL: Nonverbal gentleman in mild to moderate respiratory distress SKIN: Focused skin assessment warm/dry. HEAD: Atraumatic. Normocephalic. EYES: Pupils equal and round. No scleral icterus. No injection or drainage. ENT: No nasal bleeding or discharge. Poor dentition. Dry MM. NECK: Trachea midline. No JVD. CARDIOVASCULAR: Regular rate and rhythm. No murmur appreciated. RESPIRATORY: No accessory muscle use. Coarse breath sounds bilaterally. GASTROINTESTINAL: Abdomen soft, non-tender, nondistended. MUSCULOSKELETAL: No obvious deformities. No cyanosis. No edema. NEUROLOGICAL: Awake and alert. Laboratory Laboratory Tests Test 11/05/17 13:55 11/05/17 16:32 White Blood Count 11.0 Red Blood Count 5.23 Hemoglobin 15.0 Hematocrit 44.9 Mean Corpuscular Volume 85.9 Mean Corpuscular Hemoglobin 28.7 Mean Corpuscular Hemoglobin Concent 33.4 Red Cell Distribution Width 15.7 Platelet Count 246 Mean Platelet Volume 7.8 Neutrophils (%) (Auto) 68.7 Lymphocytes (%) (Auto) 20.4 Monocytes (%) (Auto) 8.6 Eosinophils (%) (Auto) 1.9 Basophils (%) (Auto) 0.4 Neutrophils # (Auto) 7.5 Lymphocytes # (Auto) 2.2 Monocytes # (Auto) 0.9 Eosinophils # (Auto) 0.2 Basophils # (Auto) 0.0 CBC Comment DIFF FINAL Differential Comment Prothrombin Time 11.1 Prothromb Time International Ratio 1.1 Activated Partial Thromboplast Time 25.5 D-Dimer Quantitative (PE/DVT) 10.72 Blood Urea Nitrogen 9 Creatinine 1.23 Random Glucose 139 Total Protein 8.4 Albumin 3.1 Calcium Level 9.2 Magnesium Level 1.8 Alkaline Phosphatase 145 Aspartate Amino Transf (AST/SGOT) 20 Alanine Aminotransferase (ALT/SGPT) 27 Total Bilirubin 0.3 Sodium Level 140 Potassium Level 3.7 Chloride Level 102 Carbon Dioxide Level 27.5 Anion Gap 11 Estimat Glomerular Filtration Rate 69 Troponin I LESS THAN 0.02 B-Type Natriuretic Peptide 6 Blood Gas Puncture Site RT RADIAL Blood Gas Patient Temperature 98.6 Blood Gas HCO3 26 Blood Gas Base Excess 1.7 Blood Gas Oxygen Saturation 90 Arterial Blood pH 7.43 Arterial Blood Partial Pressure CO2 39 Arterial Blood Partial Pressure O2 62 Arterial Blood Oxygen Content 17.1 Arterial Blood Carboxyhemoglobin 1.0 Arterial Blood Methemoglobin 0.8 Blood Gas Hemoglobin 13.6 Blood Gas Inspired Oxygen 21 Result Diagram: 11/05/17 1355 11/05/17 1355 Imaging Last [address] Angiography 11/05/17 1456 Signed Impressions: Service Date/Time: Sunday, November 05, 2017 16:10 - CONCLUSION: 1. Extensive pulmonary emboli involving the right main, upper and lower lobe pulmonary arteries as well as the left upper lobe pulmonary artery. 2. Elevation of the left hemidiaphragm. 3. Posterior bibasilar atelectasis and/or infiltrates. 4. Degenerative changes throughout the thoracic spine. Sabas Hook MD Chest X-Ray 11/05/17 1325 Signed Impressions: Service Date/Time: Sunday, November 05, 2017 13:31 - CONCLUSION: Stable chest x-ray. No acute cardiopulmonary abnormality is identified. MD Rika Willingham VTE Risk Assessment Caprini VTE Risk Assessment: Mod/High Risk (score >= 2) Caprini Risk Assessment Model Point Value = 1 Point Value = 2 Point Value = 3 Point Value = 5 Age 41-60 Minor surgery BMI > 25 kg/m2 Swollen legs Varicose veins or History of unexplained or recurrent spontaneous Oral contraceptives or hormone replacement Sepsis (< 1 month) Serious lung disease, including pneumonia (< 1 month) Abnormal pulmonary function Acute myocardial infarction Congestive heart failure (< 1 month) History of inflammatory bowel disease Medical patient at bed rest Age 61-74 Arthroscopic surgery Major open surgery (> 45 min) Laparoscopic surgery (> 45 min) Malignancy Confined to bed (> 72 hours) Immobilizing plaster cast Central venous access Age >= 75 History of VTE Family history of VTE Factor V Leiden Prothrombin [id number] Lupus anticoagulant Anticardiolipin antibodies Elevated serum homocysteine Heparin-induced thrombocytopenia Other congenital or acquired thrombophilia Stroke (< 1 month) Elective arthroplasty Hip, pelvis, or leg fracture Acute spinal cord injury (< 1 month) Prophylaxis Regimen Total Risk Factor Score Risk Level Prophylaxis Regimen 0-1 Low Early ambulation 2 Moderate Order ONE of the following: *Sequential Compression Device (SCD) *Heparin 5000 units SQ BID 3-4 Higher Order ONE of the following medications: *Heparin 5000 units SQ TID *Enoxaparin/Lovenox 40 mg SQ daily (WT < 150 kg, CrCl > 30 mL/min) *Enoxaparin/Lovenox 30 mg SQ daily (WT < 150 kg, CrCl > 10-29 mL/min) *Enoxaparin/Lovenox 30 mg SQ BID (WT < 150 kg, CrCl > 30 mL/min) AND/OR *Sequential Compression Device (SCD) 5 or more Highest Order ONE of the following medications: *Heparin 5000 units SQ TID (Preferred with Epidurals) *Enoxaparin/Lovenox 40 mg SQ daily (WT < 150 kg, CrCl > 30 mL/min) *Enoxaparin/Lovenox 30 mg SQ daily (WT < 150 kg, CrCl > 10-29 mL/min) *Enoxaparin/Lovenox 30 mg SQ BID (WT < 150 kg, CrCl > 30 mL/min) AND *Sequential Compression Device (SCD) Assessment and Plan Assessment and Plan Respiratory failure -Pulmonary embolism -Heparin drip -Start p.o. anticoagulation when cleared by swallow Diabetes mellitus -Insulin sliding scale Seizure disorder -IV Keppra Dementia -Resume Namenda and Aricept when okay 2 p.o. GERD -IV Pepcid Coronary artery disease -No ACS -Resume home meds when cleared to swallow DVT GI prophylaxis -Dilip's and SCDs -Pepcid -Heparin drip Critical Care: The total critical care time was 35 minutes. Time to perform other separately billable procedures was not included in the critical care time. Romeo Green MD Nov 05, 2017 6:45 pm
[2017-11-05] MEDS ORDERED: RESP: ALBUTEROL 2.5 MG/IPRATROPIUM 0.5 MG NEB (SCH) NEB ONE (19:00)
[2017-11-06] VITALS (22 sets, daily range): BP systolic 104–151; BP diastolic 67–88; PULSE 93–128; RESP 17–44; TEMP 97.4–101.6; O2SAT 91–99
[2017-11-06 00:50] LABS: HEMOGLOBIN 14.3 GM/DL (13.0-17.0); MEAN CELL VOLUME 86.5 FL (80.0-100.0); MEAN CORPUSCULAR HEMOGLOBIN 28.8 PG (27.0-34.0); MEAN CORPUSCULAR HGB CONC 33.3 % (32.0-36.0); MEAN PLATELET VOLUME 7.8 FL (7.0-11.0); PLATELET COUNT 211 TH/MM3 (150-450); RED BLOOD COUNT 4.98 MIL/MM3 (4.50-5.90); RED CELL DISTRIBUTION WIDTH 15.4 % (11.6-17.2); WHITE BLOOD COUNT 14.7 TH/MM3 (4.0-11.0)
[2017-11-06] MEDS ORDERED: CHLORHEXIDINE GLUCONATE 2 % 1 PACK (2 CLOTHS)(extra cloths) TOPICAL PRN (02:00)
[2017-11-06] MEDS: CHLORHEXIDINE GLUCONATE 2 % 1 PACK (2 CLOTHS)(taper/protocol) TOPICAL SCH (02:19)
[2017-11-06] MEDS ORDERED: GLUCAGON 1 MG/ML VIAL OTHER PRN ×2 (03:30→09:15)
[2017-11-06] MEDS ORDERED: BISACODYL 10 MG SUPP RECTAL PRN (03:30)
[2017-11-06] MEDS ORDERED: DEXTROSE 50% IN WATER 50 ML VIAL(D50) IV PUSH PRN ×2 (03:30→09:15)
[2017-11-06] MEDS ORDERED: INSULIN ASPART SUPPLEMENTAL SCALE SQ SCH (08:00)
[2017-11-06] MEDS: TOLTERODINE TARTRATE 4 MG CAP LA PO SCH (09:00)
[2017-11-06] MEDS ORDERED: RESP: ALBUTEROL 2.5 MG/IPRATROPIUM 0.5 MG NEB (PRN) NEB (09:15)
--- NOTE | 2017-11-06 09:25 | HHI.CCPN ---
Subjective Remarks/Hospital Course 77-year-old -K[place] male patient presents to the emergency department from [facility] for shortness of breath. and son states that patient was recently discharged from the hospital, but they do not feel like he was ready to come home. He was sent from home to ER by his home health nurse for shortness of breath that the family describes as being cough and congested. He was given a DuoNeb and albuterol in route by EMS. They reported O2 sat of 97-98 % after duoneb but high 80s/low 90s prior. Patient is demented and is not able to communicate to give a more detailed history. reports that patient has had a subjective fever. The CT angiogram performed in the emergency department shows extensive pulmonary emboli involving the right main, upper and lower lobe pulmonary arteries as well as the left upper lobe pulmonary artery. He was started on heparin drip and admitted to ICU. 11/06 Patient is lying in bed in NAD. On 2L oxygen. T:100.2 last night. On Heparin drip. Objective Vital Signs Date Time Temp Pulse Resp B/P (MAP) Pulse Ox O2 Delivery O2 Flow Rate FiO2 11/06/17 06:00 124 11/06/17 04:00 97.4 18 151/84 (106) 96 11/05/17 21:44 Nasal Cannula 2.00 Intake and Output 11/06/17 11/06/17 11/07/17 08:00 16:00 00:00 Intake Total 134 ml Output Total 315 ml Balance -181 ml Result Diagram: 11/06/17 0007 11/05/17 1355 Other Results Laboratory Tests Test 11/05/17 13:55 11/05/17 16:32 11/05/17 21:00 11/06/17 00:07 White Blood Count 11.0 TH/MM3 14.7 TH/MM3 Red Blood Count 5.23 MIL/MM3 4.98 MIL/MM3 Hemoglobin 15.0 GM/DL 14.3 GM/DL Hematocrit 44.9 % 43.0 % Mean Corpuscular Volume 85.9 FL 86.5 FL Mean Corpuscular Hemoglobin 28.7 PG 28.8 PG Mean Corpuscular Hemoglobin Concent 33.4 % 33.3 % Red Cell Distribution Width 15.7 % 15.4 % Platelet Count 246 TH/MM3 211 TH/MM3 Mean Platelet Volume 7.8 FL 7.8 FL Neutrophils (%) (Auto) 68.7 % Lymphocytes (%) (Auto) 20.4 % Monocytes (%) (Auto) 8.6 % Eosinophils (%) (Auto) 1.9 % Basophils (%) (Auto) 0.4 % Neutrophils # (Auto) 7.5 TH/MM3 Lymphocytes # (Auto) 2.2 TH/MM3 Monocytes # (Auto) 0.9 TH/MM3 Eosinophils # (Auto) 0.2 TH/MM3 Basophils # (Auto) 0.0 TH/MM3 CBC Comment DIFF FINAL Differential Comment Prothrombin Time 11.1 SEC Prothromb Time International Ratio 1.1 RATIO Activated Partial Thromboplast Time 25.5 SEC 93.5 SEC D-Dimer Quantitative (PE/DVT) 10.72 MG/L FEU Blood Urea Nitrogen 9 MG/DL Creatinine 1.23 MG/DL Random Glucose 139 MG/DL Total Protein 8.4 GM/DL Albumin 3.1 GM/DL Calcium Level 9.2 MG/DL Magnesium Level 1.8 MG/DL Alkaline Phosphatase 145 U/L Aspartate Amino Transf (AST/SGOT) 20 U/L Alanine Aminotransferase (ALT/SGPT) 27 U/L Total Bilirubin 0.3 MG/DL Sodium Level 140 MEQ/L Potassium Level 3.7 MEQ/L Chloride Level 102 MEQ/L Carbon Dioxide Level 27.5 MEQ/L Anion Gap 11 MEQ/L Estimat Glomerular Filtration Rate 69 ML/MIN Troponin I LESS THAN 0.02 NG/ML B-Type Natriuretic Peptide 6 PG/ML Blood Gas Puncture Site RT RADIAL Blood Gas Patient Temperature 98.6 Blood Gas HCO3 26 mmol/L Blood Gas Base Excess 1.7 mmol/L Blood Gas Oxygen Saturation 90 % Arterial Blood pH 7.43 Arterial Blood Partial Pressure CO2 39 mmHg Arterial Blood Partial Pressure O2 62 mmHG Arterial Blood Oxygen Content 17.1 Vol % Arterial Blood Carboxyhemoglobin 1.0 % Arterial Blood Methemoglobin 0.8 % Blood Gas Hemoglobin 13.6 G/DL Blood Gas Inspired Oxygen 21 % Nasal Screen MRSA (PCR) MRSA NOT DETECTED Test 11/06/17 04:59 Activated Partial Thromboplast Time 38.3 SEC Imaging Last Impressions CT Angiography 11/05/17 4760 Signed Impressions: Service Date/Time: Sunday, November 05, 2017 16:10 - CONCLUSION: 1. Extensive pulmonary emboli involving the right main, upper and lower lobe pulmonary arteries as well as the left upper lobe pulmonary artery. 2. Elevation of the left hemidiaphragm. 3. Posterior bibasilar atelectasis and/or infiltrates. 4. Degenerative changes throughout the thoracic spine. Sabas Hook MD Chest X-Ray 11/05/17 1325 Signed Impressions: Service Date/Time: Sunday, November 05, 2017 13:31 - CONCLUSION: Stable chest x-ray. No acute cardiopulmonary abnormality is identified. Baldev Christensen MD Objective Remarks GENERAL: Nonverbal gentleman lying in bed in no acute distress SKIN: Focused skin assessment warm/dry. HEAD: Atraumatic. Normocephalic. EYES: Pupils equal and round. No scleral icterus. No injection or drainage. ENT: No nasal bleeding or discharge. Poor dentition. Dry MM. NECK: Trachea midline. No JVD. CARDIOVASCULAR: Tachycardic No murmur appreciated. RESPIRATORY: No accessory muscle use. Few Coarse breath sounds bilaterally. GASTROINTESTINAL: Abdomen soft, non-tender, nondistended. MUSCULOSKELETAL: No obvious deformities. No cyanosis. No edema. NEUROLOGICAL: Awake and alert. A/P Assessment and Plan 1)Respiratory failure 2)-Pulmonary embolism 3)Leukocytosis 4)Diabetes mellitus 5)Seizure disorder 6)Dementia 7)GERD 8)Coronary artery disease Plan Neuro: Monitor neuro status and avoid and sedatives Continue Aricept 2.5mg daily and Namenda 10mg daily Pulm: Continue with oxygen keep sats >92% Bronchodilators CV: Monitor HR and BP keep MAP>65mmHg Place on Lopressor 25mg Q12 Check 2D echo to eval LV function and r/o RV strain : Monitor renal function, I/O's, electrolytes replacement as needed GI: Speech eval, diet per speech, place on Pepcid 10mg IV Q12 ID: Given low grade fever and leukocytosis will place empirically on Zosyn and monitor for signs of infections(Fever, WBC) CT chest showed bibasilar atelectasis vs infiltrate and b/l PE Check sputun cx, UA with cx if indicated Heme: Monitor CBC, coags- on Heparin drip Check Doppler US LE r/o DVT Endo: SSI if needed for glycemic control DVT GI prophylaxis -Dilip's and SCDs -Pepcid -Heparin drip Level 3 Abiola Arce MD Nov 06, 2017 09:25
[2017-11-06] MEDS: PIPERACIL-TAZO 4.5 GM PREMIX 100 ML IV SCH ×3 (09:57→21:04)
[2017-11-06] MEDS: levETIRAcetam INJ 100 ML IV SCH ×2 (09:57→21:05)
[2017-11-06] MEDS: INSULIN NovoLIN REGULAR SUPPLEMENTAL SCALE SQ SCH ×3 (10:00→21:06)
[2017-11-06] MEDS ORDERED: SODIUM CHLOR 0.9% 1000 ML INJ 1,000 ML IV SCH (10:00)
[2017-11-06] MEDS: FAMOTIDINE 20 MG/2 ML VIAL IV PUSH SCH ×2 (10:40→21:05)
[2017-11-06] MEDS: RESP: ALBUTEROL 2.5 MG/IPRATROPIUM 0.5 MG NEB (SCH) NEB ×4 (12:00→23:09)
--- NOTE | 2017-11-06 12:00 | RADRPT ---
EXAM DATE/TIME: 11/06/2017 10:42 [facility] COMPARISON: US LEG BILATERAL VENOUS DOPPLER, October 22, 2014, 13:56. INDICATIONS : Thrombosis. MEDICAL HISTORY : Seizures. Alzheimer's. Hypertension. CAD. GERD. Diabetes. CVA. C diff. SURGICAL HISTORY : Craniotomy. Cardiac Cath. ENCOUNTER: Initial ACUITY: 1 day PAIN SCORE: 5/10 LOCATION: Bilateral leg. TECHNIQUE: Venous ultrasound of the left and right leg was performed from the inguinal ligament t o the proximal calf. Real-time, color Doppler and spectral tracing, compression and augmentation katie hniques were used. FINDINGS: RIGHT LEG: There is a non-occlusive thrombus within the mid portion of the right superficial femo ral vein. There is normal compressibility of the deep venous system from the inguinal region to the p roximal calf. No echogenic clot is seen in the lumen of the common femoral, popliteal, and posterior tibial veins. There is a normal response of the venous system to proximal and distal augmentation a nd respiration. LEFT LEG: There is normal compressibility of the deep venous system from the inguinal region to t he proximal calf. No echogenic clot is seen in the lumen of the common femoral, femoral, popliteal, and posterior tibial veins. There is a normal response of the venous system to proximal and distal a ugmentation and respiration. CONCLUSION: Non-occlusive thrombus within the midportion of the right superficial femoral vein. Sabas Hook MD on November 06, 2017 at 11:57 Board Certified Radiologist. This report was verified electronically.
[2017-11-06 13:16] LABS: CALCIUM 8.8 MG/DL (8.5-10.1); CREATININE 1.1 MG/DL (0.60-1.30); MAGNESIUM 1.7 MG/DL (1.5-2.5); PHOSPHORUS 3.6 MG/DL (2.5-4.9)
[2017-11-06] MEDS: HEPARIN-D5W 25,000 U/250 ML 250 ML IV PRN (13:31)
[2017-11-06] MEDS: DONEPEZIL HCL 5 MG TAB PO SCH (16:43)
[2017-11-06] MEDS: MEMANTINE HCL 10 MG TAB PO SCH (16:43)
[2017-11-06] MEDS: MULTIVITAMINS/MINERALS THERAPEUTIC TAB PO SCH (16:43)
[2017-11-06] MEDS: METOPROLOL TARTRATE 25 MG TAB PO SCH ×2 (16:48→21:05)
[2017-11-06 18:09] LABS: BACTERIA, URINE RARE /hpf; BILIRUBIN, URINE NEG (NEG); BLOOD, URINE TRACE (NEG); GLUCOSE,URINE NEG (NEG); KETONE, URINE 40 mg/dL (NEG); MUCUS URINE FEW /lpf (OCC); NITRITE,URINE NEG (NEG); PH, URINE 5.5 (5.0-8.5); SQUAMOUS EPITHELIAL CELL URINE 2 /hpf (0-5); URINE COLOR YELLOW (YELLW/STRAW); URINE LEUKOCYTE ESTERASE SMALL (NEG)
[2017-11-06] MEDS: PRAVASTATIN SOD 80 MG TAB PO SCH (21:05)
--- NOTE | 2017-11-06 21:38 | EKG ---
Date Performed: 11/05/2017 Time Performed: 13:41:59 PTAGE: 77 years EKG: SINUS TACHYCARDIA INCOMPLETE RIGHT BUNDLE BRANCH BLOCK ABNORMAL RHYTHM ECG PREVIOUS TRACING : 10/29/2017 21.06 Compared to previous tracing, SINUS TACHYCARDIA IS NEW DOCTOR: Dhruv Guerrero Interpretating Date/Time 11/06/2017 21:36:31
[2017-11-07] VITALS (21 sets, daily range): BP systolic 86–145; BP diastolic 52–78; PULSE 93–118; RESP 13–19; TEMP 97.7–100.4; O2SAT 97–100
[2017-11-07] MEDS: CHLORHEXIDINE GLUCONATE 2 % 1 PACK (2 CLOTHS)(taper/protocol) TOPICAL SCH (02:00)
[2017-11-07] MEDS: RESP: ALBUTEROL 2.5 MG/IPRATROPIUM 0.5 MG NEB (SCH) NEB ×6 (03:32→23:23)
[2017-11-07] MEDS: INSULIN NovoLIN REGULAR SUPPLEMENTAL SCALE SQ SCH ×4 (04:00→21:17)
[2017-11-07] MEDS: PIPERACIL-TAZO 4.5 GM PREMIX 100 ML IV SCH ×4 (04:09→21:11)
--- NOTE | 2017-11-07 08:11 | HHI.CCPN ---
Subjective Remarks/Hospital Course 77-year-old -Iraqi male patient presents to the emergency department from [facility] for shortness of breath. and son states that patient was recently discharged from the hospital, but they do not feel like he was ready to come home. He was sent from home to ER by his home health nurse for shortness of breath that the family describes as being cough and congested. He was given a DuoNeb and albuterol in route by EMS. They reported O2 sat of 97-98 % after duoneb but high 80s/low 90s prior. Patient is demented and is not able to communicate to give a more detailed history. reports that patient has had a subjective fever. The CT angiogram performed in the emergency department shows extensive pulmonary emboli involving the right main, upper and lower lobe pulmonary arteries as well as the left upper lobe pulmonary artery. He was started on heparin drip and admitted to ICU. 11/06 Patient is lying in bed in NAD. On 2L oxygen. T:100.2 last night. On Heparin drip. 11/07 No events overnight. T:100.0 at 4am. On Heparin drip. Objective Vital Signs Date Time Temp Pulse Resp B/P (MAP) Pulse Ox O2 Delivery O2 Flow Rate FiO2 11/07/17 06:00 101 11/07/17 04:00 100.0 19 99 11/07/17 00:00 124/70 (88) 11/06/17 20:30 Nasal Cannula 2.00 Intake and Output 11/07/17 11/07/17 11/08/17 08:00 16:00 00:00 Intake Total 120 ml Output Total 150 ml Balance -30 ml Result Diagram: 11/06/17 0007 11/06/17 1200 Other Results Laboratory Tests Test 11/06/17 12:00 11/06/17 12:30 11/06/17 16:25 11/06/17 22:37 Blood Urea Nitrogen 9 MG/DL Creatinine 1.10 MG/DL Random Glucose 152 MG/DL Calcium Level 8.8 MG/DL Phosphorus Level 3.6 MG/DL Magnesium Level 1.7 MG/DL Sodium Level 139 MEQ/L Potassium Level 3.7 MEQ/L Chloride Level 103 MEQ/L Carbon Dioxide Level 26.0 MEQ/L Anion Gap 10 MEQ/L Estimat Glomerular Filtration Rate 79 ML/MIN Activated Partial Thromboplast Time 56.4 SEC 72.8 SEC Urine Color YELLOW Urine Turbidity HAZY Urine pH 5.5 Urine Specific [place] 1.031 Urine Protein TRACE mg/dL Urine Glucose (UA) NEG mg/dL Urine Ketones 40 mg/dL Urine Occult Blood TRACE Urine Nitrite NEG Urine Bilirubin NEG Urine Urobilinogen LESS THAN 2.0 MG/DL Urine Leukocyte Esterase SMALL Urine RBC 3 /hpf Urine WBC 4 /hpf Urine Squamous Epithelial Cells 2 /hpf Urine Bacteria RARE /hpf Urine Mucus FEW /lpf Microscopic Urinalysis Comment CATH-CULTURE IND Imaging Last Impressions Lower Extremity Ultrasound 11/06/17 0000 Signed Impressions: Service Date/Time: Monday, November 06, 2017 10:42 - CONCLUSION: Non- occlusive thrombus within the midportion of the right superficial femoral vein. Sabas Hook MD CT Angiography 11/05/17 1456 Signed Impressions: Service Date/Time: Sunday, November 05, 2017 16:10 - CONCLUSION: 1. Extensive pulmonary emboli involving the right main, upper and lower lobe pulmonary arteries as well as the left upper lobe pulmonary artery. 2. Elevation of the left hemidiaphragm. 3. Posterior bibasilar atelectasis and/or infiltrates. 4. Degenerative changes throughout the thoracic spine. Sabas Hook MD Chest X-Ray 11/05/17 1325 Signed Impressions: Service Date/Time: Sunday, November 05, 2017 13:31 - CONCLUSION: Stable chest x-ray. No acute cardiopulmonary abnormality is identified. Baldev Christensen MD Objective Remarks GENERAL: Nonverbal gentleman lying in bed in no acute distress SKIN: Focused skin assessment warm/dry. HEAD: Atraumatic. Normocephalic. EYES: Pupils equal and round. No scleral icterus. No injection or drainage. ENT: No nasal bleeding or discharge. Poor dentition. Dry MM. NECK: Trachea midline. No JVD. CARDIOVASCULAR: Tachycardic No murmur appreciated. RESPIRATORY: No accessory muscle use. Few Coarse breath sounds bilaterally. GASTROINTESTINAL: Abdomen soft, non-tender, nondistended. MUSCULOSKELETAL: No obvious deformities. No cyanosis. No edema. NEUROLOGICAL: Awake and alert. A/P Assessment and Plan 1)Respiratory failure 2)-Pulmonary embolism 3)Leukocytosis 4)Diabetes mellitus 5)Seizure disorder 6)Dementia 7)GERD 8)Coronary artery disease 9)UTI Plan Neuro: Monitor neuro status and avoid and sedatives Continue Aricept 2.5mg daily and Namenda 10mg daily Pulm: Continue with oxygen keep sats >92% Bronchodilators, Check CXR CV: Monitor HR and BP keep MAP>65mmHg On Lopressor 25mg Q12 For 2D echo to eval LV function and r/o RV strain : Monitor renal function, I/O's, electrolytes replacement as needed GI: on Pepcid 10mg IV Q12 Kept NPO per speech. NGT inserted for tube feeds however no pump is available per nursing staff ID: Continue with Zosyn add Vanco and monitor for signs of infections(Fever, WBC ) CT chest showed bibasilar atelectasis vs infiltrate and b/l PE Check sputum cx, BC x 2 sets, follow up on urine cx Check strep pneumonia and Legionella urinary Ag Heme: Monitor CBC, coags- on Heparin drip Doppler US LE: Non-occlusive thrombus within the midportion of the right superficial femoral vein. Endo: SSI if needed for glycemic control DVT GI prophylaxis -Dilip's and SCDs -Pepcid -Heparin drip Follow up on labs today Level 3 Abiola Arce MD Nov 07, 2017 08:11
[2017-11-07] MEDS ORDERED: VANCOMYCIN INJ 1,000 MG in SODIUM CHLOR 0.9% 250 ML INJ 250 ML IV ONE (08:15)
[2017-11-07] MEDS: TOLTERODINE TARTRATE 4 MG CAP LA PO SCH (09:00)
[2017-11-07] MEDS: levETIRAcetam INJ 100 ML IV SCH ×2 (09:39→21:10)
[2017-11-07] MEDS: MEMANTINE HCL 10 MG TAB PO SCH (09:39)
[2017-11-07] MEDS: METOPROLOL TARTRATE 25 MG TAB PO SCH ×2 (09:40→21:00)
[2017-11-07] MEDS: FAMOTIDINE 20 MG/2 ML VIAL IV PUSH SCH (09:40)
[2017-11-07] MEDS: DONEPEZIL HCL 5 MG TAB PO SCH (09:40)
[2017-11-07] MEDS: MULTIVITAMINS/MINERALS THERAPEUTIC TAB PO SCH (09:40)
--- NOTE | 2017-11-07 09:43 | RADRPT ---
EXAM DATE/TIME: 11/07/2017 08:31 [facility] COMPARISON: CHEST SINGLE AP, November 05, 2017, 13:31. INDICATIONS : Fever. MEDICAL HISTORY : Hypertension. Diabetes mellitus type II. Gastroesophageal reflux disease. Seizures. Alzheimer's. Stroke. SURGICAL HISTORY : Craniotomy. ENCOUNTER: Subsequent ACUITY: 1 week PAIN SCORE: Non-responsive. LOCATION: Bilateral chest FINDINGS: A single view of the chest demonstrates stable elevation of left hemidiaphragm with some developing l eft perihilar atelectatic changes. Right lung is clear. No effusions. Size is normal. Interval placem ent of a nasogastric tube with the tip curled in the gastric fundus. Osseous structures are intact. CONCLUSION: 1. Stable elevation of the left hemidiaphragm. 2. Developing left perihilar atelectatic changes/early infiltrate. Right lung remains clear. 3. Nasogastric tube curled in the gastric fundus. Chaz Juniro MD on November 07, 2017 at 9:38 Board Certified Radiologist. This report was verified electronically.
[2017-11-07 10:06] LABS: AUTOMATED NEUTROPHIL # 11.5 TH/MM3 (1.8-7.7); BASOPHIL # 0.1 TH/MM3 (0-0.2); BASOPHIL % 0.4 % (0.0-2.0); EOSINOPHIL # 0.2 TH/MM3 (0-0.4); EOSINOPHIL % 1.1 % (0.0-4.0); HEMATOCRIT 37.8 % (39.0-51.0); HEMOGLOBIN 12.7 GM/DL (13.0-17.0); LYMPH % 14.1 % (9.0-44.0); LYMPHOCYTE # 2.1 TH/MM3 (1.0-4.8); MEAN CELL VOLUME 86.3 FL (80.0-100.0); MEAN CORPUSCULAR HEMOGLOBIN 28.9 PG (27.0-34.0); MEAN CORPUSCULAR HGB CONC 33.5 % (32.0-36.0); MEAN PLATELET VOLUME 8.5 FL (7.0-11.0); MONO % 7.4 % (0.0-8.0); MONOCYTE # 1.1 TH/MM3 (0-0.9); PLATELET COUNT 212 TH/MM3 (150-450); RED BLOOD COUNT 4.39 MIL/MM3 (4.50-5.90); RED CELL DISTRIBUTION WIDTH 15.4 % (11.6-17.2)
[2017-11-07 10:14] LABS: BICARBONATE 25.5 MEQ/L (21.0-32.0); CALCIUM 8.4 MG/DL (8.5-10.1); CREATININE 1.05 MG/DL (0.60-1.30)
[2017-11-07] MEDS: HEPARIN-D5W 25,000 U/250 ML 250 ML IV PRN (12:19)
[2017-11-07] MEDS ORDERED: POTASSIUM CHLOR 40 MEQ PREMIX 100 ML IV PRN ×2 (14:15)
[2017-11-07] MEDS ORDERED: POTASSIUM PHOSPHATE MONOBASIC 500 MG TAB PO PRN (14:15)
[2017-11-07] MEDS ORDERED: POTASSIUM PHOSPHATE INJ 30 MMOL in SODIUM CHLOR 0.9% 250 ML INJ 250 ML IV PRN (14:15)
[2017-11-07] MEDS ORDERED: SODIUM PHOSPHATE INJ 30 MMOL in SODIUM CHLOR 0.9% 250 ML INJ 240 ML IV PRN (14:15)
[2017-11-07] MEDS ORDERED: POTASSIUM CHLORIDE 25 MEQ EFFERVESCENT TAB PO PRN (14:15)
[2017-11-07] MEDS ORDERED: POTASSIUM CHLOR 20 MEQ PREMIX 100 ML IV PRN ×2 (14:15)
[2017-11-07] MEDS ORDERED: POTASSIUM PHOSPHATE MONOBASIC 500 MG TAB PO/TUBE PRN (14:15)
[2017-11-07] MEDS ORDERED: MAGNESIUM SULFATE INJ 2 GM in SODIUM CHLORIDE 0.9% INJ 96 ML IV PRN (14:15)
[2017-11-07] MEDS ORDERED: MAGNESIUM OXIDE 400 MG TAB PO PRN (14:15)
[2017-11-07] MEDS ORDERED: MAGNESIUM SULFATE INJ 4 GM in SODIUM CHLORIDE 0.9% INJ 92 ML IV PRN (14:15)
--- NOTE | 2017-11-07 16:34 | RADRPT ---
EXAM DATE/TIME: 11/07/2017 15:36 [facility] COMPARISON: No previous studies available for comparison. INDICATIONS : Nasogastric tube placement. MEDICAL HISTORY : Hypertension. seizures, alzheimer's, cad, gerd, diabetes, cva, c-diff SURGICAL HISTORY : None. ENCOUNTER: Initial ACUITY: 2 days PAIN SCORE: Non-responsive. LOCATION: Bilateral abdomen FINDINGS: The nasogastric tube has its tip in the proximal stomach. Degenerative changes are noted throughout t he thoraco-lumbar spine. There is no bowel obstruction. CONCLUSION: Nasogastric tube has its tip in the proximal stomach. Sabas Hook MD on November 07, 2017 at 16:30 Board Certified Radiologist. This report was verified electronically.
[2017-11-07] MEDS: SENNOSIDES SYRUP 8.8 MG/5 ML CUP PO SCH (17:00)
--- NOTE | 2017-11-07 17:28 | ECHRPT ---
Indication: Pulmonary Embolism CONCLUSIONS The left ventricular systolic function is hyperdynamic with an estimated ejection fraction in the ra nge of 65- 70%. Normal left ventricular size. Wall thickness is normal. There is mild tricuspid valve regurgitation. The estimated pulmonary arterial pressure is 44.1 mmHg. BP: 124 / 70 HR: 118 Rhythm: Sinus MEASUREMENTS (Male / Female) Normal Values Technical Quality:Very technically difficult study 2D ECHO LV Diastolic Diameter PLAX 3.7 cm 4.2 - 5.9 / 3.9 - 5.3 cm LV Systolic Diameter PLAX 2.5 cm IVS Diastolic Thickness 1.0 cm 0.6 - 1.0 / 0.6 - 0.9 cm LVPW Diastolic Thickness 0.9 cm 0.6 - 1.0 / 0.6 - 0.9 cm LV Relative Wall Thickness 0.5 RV Internal Dim ED PLAX 2.6 cm LVOT Diameter 1.8 cm LA Systolic Diameter LX 2.3 cm 3.0 - 4.0 / 2.7 - 3.8 cm M-MODE Aortic Root Diameter MM 3.0 cm LA Systolic Diameter MM 2.6 cm LA Ao Ratio MM 0.9 AV Cusp Separation MM 1.8 cm DOPPLER AV Peak Velocity 128.5 cm/s AV Peak Gradient 6.6 mmHg MV Area PHT 3.5 cm Mitral E Point Velocity 74.5 cm/s Mitral A Point Velocity 99.7 cm/s Mitral E to A Ratio 0.7 TR Peak Velocity 292.0 cm/s TR Peak Gradient 34.1 mmHg Right Atrial Pressure 10.0 mmHg Pulmonary Artery Systolic Pressu 44.1 mmHg Right Ventricular Systolic Press 44.1 mmHg FINDINGS LEFT VENTRICLE The left ventricular systolic function is hyperdynamic with an estimated ejection fraction in the ra nge of 65- 70%. Normal left ventricular size. Wall thickness is normal. RIGHT VENTRICLE Normal right ventricular size and systolic function. LEFT ATRIUM The left atrial size is normal. RIGHT ATRIUM The right atrial size is normal. ATRIAL SEPTUM Normal atrial septal thickness without atrial level shunting by limited color doppler interrogation. AORTA The aortic root and proximal ascending aorta are normal in size on limited imaging. MITRAL VALVE Structurally normal mitral valve. No mitral valve stenosis or regurgitation. AORTIC VALVE Trileaflet aortic valve. No aortic valve stenosis or regurgitation. TRICUSPID VALVE Structurally normal tricuspid valve. There is mild tricuspid valve regurgitation. The estimated pulmonary arterial pressure is 44.1 mmHg. PULMONARY VALVE No pulmonary valve regurgitation or stenosis. VESSELS The inferior vena cava is normal in size. PERICARDIUM No pericardial effusion. Ezra Katz MD, FACC (Electronically Signed) Final Date:07 November 2017 17:27
[2017-11-07] MEDS: LACTULOSE SYRUP 20 GM/30 ML CUP PO SCH (17:48)
[2017-11-07] MEDS: DOCUSATE SODIUM 100 MG CAP PO SCH (17:49)
[2017-11-07] MEDS: FAMOTIDINE 20 MG TAB PO SCH (20:00)
[2017-11-07] MEDS: PRAVASTATIN SOD 80 MG TAB PO SCH (21:00)
[2017-11-07] MEDS: VANCOMYCIN INJ 1,000 MG in SODIUM CHLOR 0.9% 250 ML INJ 250 ML IV SCH (21:10)
[2017-11-08] VITALS (16 sets, daily range): BP systolic 115–141; BP diastolic 56–72; PULSE 97–124; RESP 12–18; TEMP 98.1–99.4; O2SAT 94–100
[2017-11-08] MEDS: RESP: ALBUTEROL 2.5 MG/IPRATROPIUM 0.5 MG NEB (SCH) NEB ×6 (03:24→23:59)
[2017-11-08] MEDS: CHLORHEXIDINE GLUCONATE 2 % 1 PACK (2 CLOTHS)(taper/protocol) TOPICAL SCH (04:00)
[2017-11-08] MEDS: INSULIN NovoLIN REGULAR SUPPLEMENTAL SCALE SQ SCH ×3 (04:00→16:00)
[2017-11-08] MEDS: PIPERACIL-TAZO 4.5 GM PREMIX 100 ML IV SCH ×4 (04:06→22:11)
[2017-11-08] MEDS: DOCUSATE SODIUM 100 MG CAP PO SCH ×2 (04:07→16:40)
[2017-11-08 07:19] LABS: AUTOMATED NEUTROPHIL # 8.2 TH/MM3 (1.8-7.7); BASOPHIL % 0.4 % (0.0-2.0); EOSINOPHIL # 0.3 TH/MM3 (0-0.4); HEMOGLOBIN 12.2 GM/DL (13.0-17.0); LYMPH % 11.9 % (9.0-44.0); LYMPHOCYTE # 1.3 TH/MM3 (1.0-4.8); MEAN CELL VOLUME 85.7 FL (80.0-100.0); MEAN CORPUSCULAR HGB CONC 33.9 % (32.0-36.0); MEAN PLATELET VOLUME 8.2 FL (7.0-11.0); MONO % 8.3 % (0.0-8.0); MONOCYTE # 0.9 TH/MM3 (0-0.9); NEUT % 76.4 % (16.0-70.0); PLATELET COUNT 224 TH/MM3 (150-450); RED CELL DISTRIBUTION WIDTH 15.4 % (11.6-17.2); WHITE BLOOD COUNT 10.7 TH/MM3 (4.0-11.0)
--- NOTE | 2017-11-08 07:23 | HHI.CCPN ---
Subjective Remarks/Hospital Course 77-year-old -Ugandan male patient presents to the emergency department from [facility] for shortness of breath. and son states that patient was recently discharged from the hospital, but they do not feel like he was ready to come home. He was sent from home to ER by his home health nurse for shortness of breath that the family describes as being cough and congested. He was given a DuoNeb and albuterol in route by EMS. They reported O2 sat of 97-98 % after duoneb but high 80s/low 90s prior. Patient is demented and is not able to communicate to give a more detailed history. reports that patient has had a subjective fever. The CT angiogram performed in the emergency department shows extensive pulmonary emboli involving the right main, upper and lower lobe pulmonary arteries as well as the left upper lobe pulmonary artery. He was started on heparin drip and admitted to ICU. 11/06 Patient is lying in bed in NAD. On 2L oxygen. T:100.2 last night. On Heparin drip. 11/07 No events overnight. T:100.0 at 4am. On Heparin drip. 11/08 Patient pulled his NGT overnight. On Heparin drip. Afebrile. Objective Vital Signs Date Time Temp Pulse Resp B/P (MAP) Pulse Ox O2 Delivery O2 Flow Rate FiO2 11/08/17 04:00 99.0 109 14 128/64 (85) 100 11/07/17 20:50 Nasal Cannula 2.00 Intake and Output 11/08/17 11/08/17 11/09/17 08:00 16:00 00:00 Output Total 450 ml Balance -450 ml Result Diagram: 11/07/17 0850 11/07/17 0850 Other Results Laboratory Tests Test 11/07/17 08:50 11/07/17 17:33 11/08/17 05:36 White Blood Count 15.0 TH/MM3 Red Blood Count 4.39 MIL/MM3 Hemoglobin 12.7 GM/DL Hematocrit 37.8 % Mean Corpuscular Volume 86.3 FL Mean Corpuscular Hemoglobin 28.9 PG Mean Corpuscular Hemoglobin Concent 33.5 % Red Cell Distribution Width 15.4 % Platelet Count 212 TH/MM3 Mean Platelet Volume 8.5 FL Neutrophils (%) (Auto) 77.0 % Lymphocytes (%) (Auto) 14.1 % Monocytes (%) (Auto) 7.4 % Eosinophils (%) (Auto) 1.1 % Basophils (%) (Auto) 0.4 % Neutrophils # (Auto) 11.5 TH/MM3 Lymphocytes # (Auto) 2.1 TH/MM3 Monocytes # (Auto) 1.1 TH/MM3 Eosinophils # (Auto) 0.2 TH/MM3 Basophils # (Auto) 0.1 TH/MM3 CBC Comment DIFF FINAL Differential Comment Activated Partial Thromboplast Time 67.5 SEC Blood Urea Nitrogen 8 MG/DL Creatinine 1.05 MG/DL Random Glucose 166 MG/DL Calcium Level 8.4 MG/DL Sodium Level 138 MEQ/L Potassium Level 3.4 MEQ/L Chloride Level 103 MEQ/L Carbon Dioxide Level 25.5 MEQ/L Anion Gap 10 MEQ/L Estimat Glomerular Filtration Rate 83 ML/MIN Phosphorus Level 2.8 MG/DL Imaging Last Impressions Chest X-Ray 11/07/17 0000 Signed Impressions: Service Date/Time: October 08:31 - CONCLUSION: 1. Stable elevation of the left hemidiaphragm. 2. Developing left perihilar atelectatic changes/early infiltrate. Right lung remains clear. 3. Nasogastric tube curled in the gastric fundus. Chaz Junior MD Abdomen X-Ray 11/07/17 0000 Signed Impressions: Service Date/Time: October 15:36 - CONCLUSION: Nasogastric tube has its tip in the proximal stomach. Sabas Hook MD Lower Extremity Ultrasound 11/06/17 0000 Signed Impressions: Service Date/Time: Monday, November 06, 2017 10:42 - CONCLUSION: Non- occlusive thrombus within the midportion of the right superficial femoral vein. Sabas Hook MD CT Angiography 11/05/17 1456 Signed Impressions: Service Date/Time: Sunday, November 05, 2017 16:10 - CONCLUSION: 1. Extensive pulmonary emboli involving the right main, upper and lower lobe pulmonary arteries as well as the left upper lobe pulmonary artery. 2. Elevation of the left hemidiaphragm. 3. Posterior bibasilar atelectasis and/or infiltrates. 4. Degenerative changes throughout the thoracic spine. Sabas Hook MD Objective Remarks GENERAL: Nonverbal gentleman lying in bed in no acute distress SKIN: Focused skin assessment warm/dry. HEAD: Atraumatic. Normocephalic. EYES: Pupils equal and round. No scleral icterus. No injection or drainage. ENT: No nasal bleeding or discharge. Poor dentition. Dry MM. NECK: Trachea midline. No JVD. CARDIOVASCULAR: Tachycardic No murmur appreciated. RESPIRATORY: No accessory muscle use. Few Coarse breath sounds bilaterally. GASTROINTESTINAL: Abdomen soft, non-tender, nondistended. MUSCULOSKELETAL: No obvious deformities. No cyanosis. No edema. NEUROLOGICAL: Awake and alert. A/P Assessment and Plan 1)Respiratory failure 2)-Pulmonary embolism 3)Leukocytosis 4)Diabetes mellitus 5)Seizure disorder 6)Dementia 7)GERD 8)Coronary artery disease 9)UTI Plan Neuro: Monitor neuro status and avoid and sedatives Continue Aricept 2.5mg daily and Namenda 10mg daily Pulm: Continue with oxygen keep sats >92% Bronchodilators, . CXR yesterday- Developing left perihilar atelectatic changes/early infiltrate. Right lung remains clear. CV: Monitor HR and BP keep MAP>65mmHg On Lopressor 25mg Q12 Echo showed EF 65-70%, normal RV size and function : Monitor renal function, I/O's, electrolytes replacement as needed GI: on Pepcid 10mg IV Q12 Patient pulled his NGT overnight will repeat speech eval if fails again will reinsert for tube feeds ID: Continue with Zosyn, Vanco and monitor for signs of infections(Fever, WBC) CT chest showed bibasilar atelectasis vs infiltrate and b/l PE Check sputum cx, BC x 2 sets, urine cx- NGTD strep pneumonia and Legionella urinary Ag negative Heme: Monitor CBC, coags- on Heparin drip, Doppler US LE: Non-occlusive thrombus within the midportion of the right superficial femoral vein. Endo: SSI if needed for glycemic control DVT GI prophylaxis -Dilip's and SCDs -Pepcid -Heparin drip Will sign off and transfer care to [facility] Level 2 Abiola Arce MD Nov 08, 2017 07:23
[2017-11-08 07:42] LABS: BICARBONATE 26.2 MEQ/L (21.0-32.0); CALCIUM 8.5 MG/DL (8.5-10.1); CREATININE 1.1 MG/DL (0.60-1.30)
[2017-11-08] MEDS: levETIRAcetam INJ 100 ML IV SCH ×2 (09:26→21:05)
[2017-11-08] MEDS: VANCOMYCIN INJ 1,000 MG in SODIUM CHLOR 0.9% 250 ML INJ 250 ML IV SCH ×2 (09:27→22:11)
[2017-11-08] MEDS: FAMOTIDINE 20 MG TAB PO SCH ×2 (09:29→21:05)
[2017-11-08] MEDS: MULTIVITAMINS/MINERALS THERAPEUTIC TAB PO SCH (09:29)
[2017-11-08] MEDS: DONEPEZIL HCL 5 MG TAB PO SCH (09:29)
[2017-11-08] MEDS: METOPROLOL TARTRATE 25 MG TAB PO SCH ×2 (09:29→21:05)
[2017-11-08] MEDS: MEMANTINE HCL 10 MG TAB PO SCH (09:29)
[2017-11-08] MEDS: TOLTERODINE TARTRATE 4 MG CAP LA PO SCH (09:29)
[2017-11-08] MEDS: LACTULOSE SYRUP 20 GM/30 ML CUP PO SCH ×3 (09:33→16:39)
[2017-11-08] MEDS: SENNOSIDES SYRUP 8.8 MG/5 ML CUP PO SCH (09:33)
[2017-11-08] MEDS: PRAVASTATIN SOD 80 MG TAB PO SCH (21:05)
[2017-11-09] VITALS (23 sets, daily range): BP systolic 121–171; BP diastolic 66–80; PULSE 93–109; RESP 11–21; TEMP 99.2–100.4; O2SAT 97–100
[2017-11-09] MEDS: INSULIN NovoLIN REGULAR SUPPLEMENTAL SCALE SQ SCH ×3 (00:29→09:50)
[2017-11-09] MEDS: CHLORHEXIDINE GLUCONATE 2 % 1 PACK (2 CLOTHS)(taper/protocol) TOPICAL SCH (01:13)
[2017-11-09] MEDS: RESP: ALBUTEROL 2.5 MG/IPRATROPIUM 0.5 MG NEB (SCH) NEB ×6 (03:52→23:42)
[2017-11-09] MEDS: PIPERACIL-TAZO 4.5 GM PREMIX 100 ML IV SCH ×4 (04:10→20:35)
[2017-11-09] MEDS: DOCUSATE SODIUM 100 MG CAP PO SCH ×2 (04:53→17:58)
[2017-11-09 06:32] LABS: BICARBONATE 27.1 MEQ/L (21.0-32.0); CALCIUM 8.4 MG/DL (8.5-10.1); CREATININE 1.07 MG/DL (0.60-1.30); MAGNESIUM 2.1 MG/DL (1.5-2.5); PHOSPHORUS 2.2 MG/DL (2.5-4.9)
[2017-11-09 06:46] LABS: AUTOMATED NEUTROPHIL # 8.5 TH/MM3 (1.8-7.7); BASOPHIL # 0.1 TH/MM3 (0-0.2); BASOPHIL % 0.4 % (0.0-2.0); EOSINOPHIL # 0.4 TH/MM3 (0-0.4); EOSINOPHIL % 3.5 % (0.0-4.0); HEMATOCRIT 34.5 % (39.0-51.0); HEMOGLOBIN 11.5 GM/DL (13.0-17.0); LYMPHOCYTE # 1.4 TH/MM3 (1.0-4.8); MEAN CELL VOLUME 86.4 FL (80.0-100.0); MEAN CORPUSCULAR HEMOGLOBIN 28.7 PG (27.0-34.0); MEAN CORPUSCULAR HGB CONC 33.2 % (32.0-36.0); MEAN PLATELET VOLUME 8.8 FL (7.0-11.0); MONO % 8.8 % (0.0-8.0); NEUT % 75.3 % (16.0-70.0); PLATELET COUNT 242 TH/MM3 (150-450); RED CELL DISTRIBUTION WIDTH 15.5 % (11.6-17.2); WHITE BLOOD COUNT 11.3 TH/MM3 (4.0-11.0)
[2017-11-09] MEDS: HEPARIN-D5W 25,000 U/250 ML 250 ML IV PRN (09:33)
[2017-11-09] MEDS: DONEPEZIL HCL 5 MG TAB PO SCH (09:36)
[2017-11-09] MEDS: TOLTERODINE TARTRATE 4 MG CAP LA PO SCH (09:36)
[2017-11-09] MEDS: FAMOTIDINE 20 MG TAB PO SCH ×2 (09:36→20:36)
[2017-11-09] MEDS: MULTIVITAMINS/MINERALS THERAPEUTIC TAB PO SCH (09:36)
[2017-11-09] MEDS: LACTULOSE SYRUP 20 GM/30 ML CUP PO SCH ×3 (09:36→17:58)
[2017-11-09] MEDS: METOPROLOL TARTRATE 25 MG TAB PO SCH ×2 (09:37→20:36)
[2017-11-09] MEDS: levETIRAcetam INJ 100 ML IV SCH ×2 (09:37→20:35)
[2017-11-09] MEDS: VANCOMYCIN INJ 1,000 MG in SODIUM CHLOR 0.9% 250 ML INJ 250 ML IV SCH ×2 (09:37→20:36)
[2017-11-09] MEDS: SENNOSIDES SYRUP 8.8 MG/5 ML CUP PO SCH (09:37)
[2017-11-09] MEDS: MEMANTINE HCL 10 MG TAB PO SCH (09:37)
--- NOTE | 2017-11-09 10:17 | HHI.PR ---
Subjective Remarks Follow-up metabolic encephalopathy/PE/UTI/respiratory failure November 09, 2017-patient seen and examined, no acute event overnight and currently vital stable. NG tube in place. Restraints in place upper extremities Objective Vitals Vital Signs Date Time Temp Pulse Resp B/P (MAP) Pulse Ox O2 Delivery O2 Flow Rate FiO2 11/09/17 07:20 100 Nasal Cannula 2.00 11/09/17 06:00 104 11/09/17 04:00 100 11/09/17 04:00 100.4 100 15 127/74 (91) 100 11/09/17 02:00 99 11/09/17 00:00 99 11/09/17 00:00 99.2 99 16 121/74 (90) 99 11/08/17 22:00 106 11/08/17 21:17 97 Nasal Cannula 2.00 11/08/17 20:00 104 11/08/17 20:00 99.4 104 15 137/66 (89) 100 11/08/17 19:00 100 Nasal Cannula 2.00 11/08/17 18:00 110 11/08/17 16:00 100 11/08/17 16:00 100 12 122/70 (87) 94 11/08/17 14:00 101 13 121/68 (85) 99 11/08/17 14:00 101 11/08/17 13:00 109 11/08/17 13:00 109 12 122/72 (89) 100 11/08/17 12:00 113 16 130/70 (90) 98 11/08/17 12:00 113 11/08/17 11:00 124 11/08/17 11:00 124 18 141/71 (94) 96 I/O 11/08/17 11/08/17 11/08/17 11/09/17 11/09/17 11/09/17 07:00 15:00 23:00 07:00 15:00 23:00 Intake Total 249 ml 997 ml Output Total 450 ml 350 ml 650 ml Balance -450 ml -101 ml 347 ml IV Total 100 ml 450 ml Tube Feeding 89 ml 517 ml Other 60 ml 30 ml Output Urine Total 450 ml 350 ml 500 ml Stool Total 150 ml # Bowel Movements 2 3 Result Diagram: 11/09/17 0452 11/09/17 0452 Imaging Last Impressions Chest X-Ray 11/07/17 0000 Signed Impressions: Service Date/Time: October 08:31 - CONCLUSION: 1. Stable elevation of the left hemidiaphragm. 2. Developing left perihilar atelectatic changes/early infiltrate. Right lung remains clear. 3. Nasogastric tube curled in the gastric fundus. Chaz Junior MD Abdomen X-Ray 11/07/17 0000 Signed Impressions: Service Date/Time: October 15:36 - CONCLUSION: Nasogastric tube has its tip in the proximal stomach. Sabas Hook MD Lower Extremity Ultrasound 11/06/17 0000 Signed Impressions: Service Date/Time: Monday, November 06, 2017 10:42 - CONCLUSION: Non- occlusive thrombus within the midportion of the right superficial femoral vein. Sabas Hook MD CT Angiography 11/05/17 1456 Signed Impressions: Service Date/Time: Sunday, November 05, 2017 16:10 - CONCLUSION: 1. Extensive pulmonary emboli involving the right main, upper and lower lobe pulmonary arteries as well as the left upper lobe pulmonary artery. 2. Elevation of the left hemidiaphragm. 3. Posterior bibasilar atelectasis and/or infiltrates. 4. Degenerative changes throughout the thoracic spine. Sabas Hook MD Objective Remarks GENERAL: NAD with NGT in place SKIN: Warm and dry. HEAD: Normocephalic. EYES: No scleral icterus. No injection or drainage. NECK: Supple, trachea midline. No JVD or lymphadenopathy. CARDIOVASCULAR: Regular rate and rhythm without murmurs, gallops, or rubs. RESPIRATORY: Breath sounds decrease bilaterally. No accessory muscle use. GASTROINTESTINAL: Abdomen soft, non-tender, nondistended. MUSCULOSKELETAL: No cyanosis, or edema. Restrains to BUEs BACK: Nontender without obvious deformity. No CVA tenderness. A/P Problem List: (1) Metabolic encephalopathy ICD Code: G93.41 - Metabolic encephalopathy (2) Pulmonary embolism ICD Code: I26.99 - Other pulmonary embolism without acute cor pulmonale Status: Acute Assessment and Plan 77-year-old man with 1)Respiratory failure Continue with oxygen keep sats >92% Bronchodilators, 2)-Pulmonary embolism CTA + PE Doppler US LE: Non-occlusive thrombus within the midportion of the right superficial femoral vein. Currently on Heparin Drip Will consult Hematology 3)Hypertension Monitor HR and BP keep MAP>65mmHg On Lopressor 25mg Q12 Echo showed EF 65-70%, normal RV size and func 4)Diabetes mellitus On ISS however will change to Medium ISS 5)Seizure disorder Stable on Keppra IV 6)Dementia Continue Aricept 2.5mg daily and Namenda 10mg daily 7)GERD On Pepcid 8)Coronary artery disease 9)UTI Continue with Zosyn, Vanco and monitor for signs of infections CT chest showed bibasilar atelectasis vs infiltrate and b/l PE strep pneumonia and Legionella urinary Ag negative DVT GI prophylaxis -Dilip's and SCDs -Pepcid -Heparin drip Problem Qualifiers (1) Pulmonary embolism: Qualified Codes: I26.99 - Other pulmonary embolism without acute cor pulmonale Miguel Contreras MD Nov 09, 2017 10:17
[2017-11-09] MEDS ORDERED: DEXTROSE 50% IN WATER 50 ML VIAL(D50) IV PUSH PRN (10:30)
[2017-11-09] MEDS ORDERED: GLUCAGON 1 MG/ML VIAL OTHER PRN (10:30)
[2017-11-09] MEDS: INSULIN ASPART SUPPLEMENTAL SCALE SQ SCH ×2 (12:00→20:46)
[2017-11-09] MEDS ORDERED: INSULIN DETEMIR 10 UNIT SQ SCH (20:15)
--- NOTE | 2017-11-09 20:17 | HHI.PR ---
Addendum to Inpatient Note Addendum Reason: Additional Documentation Additional Information Patient on Tube feeding, blood sugars in the mid 300s. Family states patient was on Levemir 10 units daily. Restarted it tonight. Katina Simmons Nov 09, 2017 20:17
[2017-11-09] MEDS: PRAVASTATIN SOD 80 MG TAB PO SCH (20:36)
[2017-11-09] MEDS: INSULIN DETEMIR 100 UNITS/ML VIAL SQ SCH (20:36)
[2017-11-09] MEDS: ACETAMINOPHEN 325 MG TAB PO PRN (20:43)
[2017-11-10] VITALS (14 sets, daily range): BP systolic 114–157; BP diastolic 60–74; PULSE 89–111; RESP 12–17; TEMP 98.1–100.3; O2SAT 99–100
[2017-11-10] MEDS: RESP: ALBUTEROL 2.5 MG/IPRATROPIUM 0.5 MG NEB (SCH) NEB ×5 (03:46→20:05)
[2017-11-10] MEDS: CHLORHEXIDINE GLUCONATE 2 % 1 PACK (2 CLOTHS)(taper/protocol) TOPICAL SCH (04:00)
[2017-11-10] MEDS: DOCUSATE SODIUM 100 MG CAP PO SCH ×2 (05:59→16:43)
[2017-11-10] MEDS: PIPERACIL-TAZO 4.5 GM PREMIX 100 ML IV SCH ×4 (05:59→21:49)
[2017-11-10] MEDS: HEPARIN-D5W 25,000 U/250 ML 250 ML IV PRN (06:02)
[2017-11-10] MEDS: INSULIN ASPART SUPPLEMENTAL SCALE SQ SCH ×4 (08:00→21:50)
[2017-11-10] MEDS: FAMOTIDINE 20 MG TAB PO SCH ×2 (09:08→21:48)
[2017-11-10] MEDS: LACTULOSE SYRUP 20 GM/30 ML CUP PO SCH ×3 (09:08→16:43)
[2017-11-10] MEDS: MULTIVITAMINS/MINERALS THERAPEUTIC TAB PO SCH (09:08)
[2017-11-10] MEDS: MEMANTINE HCL 10 MG TAB PO SCH (09:08)
[2017-11-10] MEDS: TOLTERODINE TARTRATE 4 MG CAP LA PO SCH (09:08)
[2017-11-10] MEDS: DONEPEZIL HCL 5 MG TAB PO SCH (09:08)
[2017-11-10] MEDS: VANCOMYCIN INJ 1,000 MG in SODIUM CHLOR 0.9% 250 ML INJ 250 ML IV SCH ×2 (09:09→21:50)
[2017-11-10] MEDS: levETIRAcetam INJ 100 ML IV SCH ×2 (09:09→21:49)
[2017-11-10] MEDS: SENNOSIDES SYRUP 8.8 MG/5 ML CUP PO SCH (09:10)
[2017-11-10] MEDS: METOPROLOL TARTRATE 25 MG TAB PO SCH ×2 (09:10→21:48)
--- NOTE | 2017-11-10 09:44 | HHI.PR ---
Subjective Remarks Follow-up metabolic encephalopathy/PE/UTI/respiratory failure November 09, 2017-patient seen and examined, no acute event overnight and currently vital stable. NG tube in place. Restraints in place upper extremities November 10, 2017-patient seen and examined, alert but not following commands. no acute event overnight. Currently afebrile Objective Vitals Vital Signs Date Time Temp Pulse Resp B/P (MAP) Pulse Ox O2 Delivery O2 Flow Rate FiO2 11/10/17 07:22 99 Nasal Cannula 2.00 11/10/17 06:00 97 11/10/17 04:00 101 11/10/17 04:00 98.1 101 13 142/74 (96) 100 11/10/17 03:46 100 Nasal Cannula 2.00 11/10/17 02:00 102 11/10/17 00:08 16 11/10/17 00:00 89 11/10/17 00:00 98.8 89 12 157/63 (94) 100 11/09/17 23:42 97 Nasal Cannula 2.00 11/09/17 22:00 97 11/09/17 21:37 99 Nasal Cannula 2.00 11/09/17 20:00 98 11/09/17 20:00 99.4 98 13 171/80 (110) 100 11/09/17 19:00 105 13 99 11/09/17 19:00 105 11/09/17 19:00 99 Nasal Cannula 2.00 11/09/17 18:00 105 13 99 11/09/17 18:00 105 11/09/17 17:11 104 12 147/66 (93) 98 11/09/17 17:11 104 11/09/17 17:00 101 12 98 11/09/17 17:00 101 11/09/17 16:00 109 14 131/72 (91) 98 11/09/17 16:00 109 11/09/17 15:00 101 11/09/17 15:00 101 13 99 11/09/17 14:00 103 11/09/17 14:00 103 21 99 11/09/17 13:00 93 11 100 11/09/17 13:00 93 11/09/17 12:00 96 11/09/17 12:00 99.5 96 13 131/72 (91) 99 11/09/17 11:40 93 12 131/72 (91) 99 11/09/17 11:40 93 11/09/17 11:00 97 11/09/17 11:00 97 15 99 11/09/17 10:00 101 11/09/17 10:00 101 12 138/73 (94) 99 I/O 11/09/17 11/09/17 11/09/17 11/10/17 11/10/17 11/10/17 07:00 15:00 23:00 07:00 15:00 23:00 Intake Total 997 ml 100 ml 1379 ml 930 ml 100 ml Output Total 650 ml 450 ml 550 ml Balance 347 ml 100 ml 929 ml 380 ml 100 ml IV Total 450 ml 100 ml 550 ml 350 ml 100 ml Tube Feeding 517 ml 589 ml 580 ml Other 30 ml 240 ml Output Urine Total 500 ml 450 ml 550 ml Stool Total 150 ml # Bowel Movements 2 1 Result Diagram: 11/09/17 0452 11/09/17 0452 Imaging Last Impressions Chest X-Ray 11/07/17 0000 Signed Impressions: Service Date/Time: October 08:31 - CONCLUSION: 1. Stable elevation of the left hemidiaphragm. 2. Developing left perihilar atelectatic changes/early infiltrate. Right lung remains clear. 3. Nasogastric tube curled in the gastric fundus. Chaz Junior MD Abdomen X-Ray 11/07/17 0000 Signed Impressions: Service Date/Time: October 15:36 - CONCLUSION: Nasogastric tube has its tip in the proximal stomach. Sabas Hook MD Lower Extremity Ultrasound 11/06/17 0000 Signed Impressions: Service Date/Time: Monday, November 06, 2017 10:42 - CONCLUSION: Non- occlusive thrombus within the midportion of the right superficial femoral vein. Sabas Hook MD CT Angiography 11/05/17 1456 Signed Impressions: Service Date/Time: Sunday, November 05, 2017 16:10 - CONCLUSION: 1. Extensive pulmonary emboli involving the right main, upper and lower lobe pulmonary arteries as well as the left upper lobe pulmonary artery. 2. Elevation of the left hemidiaphragm. 3. Posterior bibasilar atelectasis and/or infiltrates. 4. Degenerative changes throughout the thoracic spine. Sabas Hook MD Objective Remarks GENERAL: NAD with NGT in place SKIN: Warm and dry. HEAD: Normocephalic. EYES: No scleral icterus. No injection or drainage. NECK: Supple, trachea midline. No JVD or lymphadenopathy. CARDIOVASCULAR: Regular rate and rhythm without murmurs, gallops, or rubs. RESPIRATORY: Breath sounds decrease bilaterally. No accessory muscle use. GASTROINTESTINAL: Abdomen soft, non-tender, nondistended. MUSCULOSKELETAL: No cyanosis, or edema. Restrains to BUEs BACK: Nontender without obvious deformity. No CVA tenderness. A/P Problem List: (1) Metabolic encephalopathy ICD Code: G93.41 - Metabolic encephalopathy (2) Pulmonary embolism ICD Code: I26.99 - Other pulmonary embolism without acute cor pulmonale Status: Acute Assessment and Plan 77-year-old man with 1)Respiratory failure Continue with oxygen keep sats >92% Bronchodilators, 2)-Pulmonary embolism CTA + PE Doppler US LE: Non-occlusive thrombus within the midportion of the right superficial femoral vein. Currently on Heparin Drip Will consult Hematology 3)Hypertension Monitor HR and BP keep MAP>65mmHg On Lopressor 25mg Q12 Echo showed EF 65-70%, normal RV size and func 4)Diabetes mellitus On Medium ISS + Levemir 10units HS 5)Seizure disorder Stable on Keppra IV 6)Dementia Continue Aricept 2.5mg daily and Namenda 10mg daily 7)GERD On Pepcid 8)Coronary artery disease 9)UTI Continue with Zosyn, Vanco and monitor for signs of infections CT chest showed bibasilar atelectasis vs infiltrate and b/l PE strep pneumonia and Legionella urinary Ag negative DVT GI prophylaxis -Dilip's and SCDs -Pepcid -Heparin drip Problem Qualifiers (1) Pulmonary embolism: Qualified Codes: I26.99 - Other pulmonary embolism without acute cor pulmonale Miguel Contreras MD Nov 10, 2017 09:44
[2017-11-10] MEDS: ACETAMINOPHEN 325 MG TAB PO PRN (12:23)
--- NOTE | 2017-11-10 18:57 | MB ---
cc: Ambrose Dawn MD DATE: 11/10/2017 HISTORY OF PRESENT ILLNESS: This is a 77-year-old male who is currently encephalopathic. He was brought to the emergency room via [facility] for shortness of breath. He has a history of dementia. He was given breathing treatments and improvement in his oxygenation. In the emergency room, he had a CT angiogram, which showed extensive pulmonary emboli involving the right main, upper and lower lobe pulmonary arteries as well as a left upper lobe pulmonary artery. There was elevation of the left hemidiaphragm. The patient also had lower extremity ultrasound, which showed a nonocclusive thrombus within the mid portion of the right superficial femoral vein. The patient is awake, but he is nonverbal and not following commands. Again, he has a history of seizure disorder and also history of dementia, and is on Aricept and Namenda. He is also being treated for UTI and sepsis and is on broad spectrum antibiotics including vancomycin and Zosyn. REVIEW OF SYSTEMS: Unable to be obtained due to patient's mental status. PAST MEDICAL HISTORY: History of a traumatic brain injury in 2014, dementia, CVA, diabetes, seizure disorder, coronary artery disease, hypertension, GERD. PAST SURGICAL HISTORY: History of bilateral craniotomy and cardiac catheterization. FAMILY HISTORY: Unable to be obtained. SOCIAL HISTORY: Unable to be obtained. MEDICATIONS: DuoNebs, sliding scale insulin, vancomycin, Pepcid, lactulose p.r.n., Senna p.r.n., Zosyn, Lopressor 25 mg p.o. q. 12 hours, Keppra, Aricept 2.5 mg p.o. daily, memantine 10 mg p.o. daily, multivitamins. ALLERGIES: NO KNOWN ALLERGIES. PHYSICAL EXAMINATION: VITAL SIGNS: Blood pressure is 120/60, pulse is in the 100s, temperature is 98.6, O2 saturations 100% on 2 L of nasal cannula. GENERAL: Ill-appearing male who is awake, but not responding to questions. Does not follow commands. HEENT: NG tube is in place. Pupils are equal, round, reactive to light. EOMI. NECK: Supple. No JVD. No bruits. CHEST: Clear to auscultation bilaterally. CARDIAC: S1, S2. Regular rate and rhythm. ABDOMEN: Soft, nontender, nondistended. Bowel sounds are decreased. EXTREMITIES: No edema, erythema or cyanosis. SKIN: Without any petechiae, lesions, or bruises. NEUROLOGIC: Does not follow commands. LABORATORY DATA: WBC 11.3, hemoglobin 11.5, platelet count 242. Serum chemistry: Sodium 140, potassium 4.5, chloride 104, BUN is 5, GFR is 81, calcium is 8.4, phosphorus 2.2, magnesium is 2.1. IMAGING: Discussed in the HPI. CT angiogram and lower extremity Doppler ultrasound was reviewed. ASSESSMENT AND PLAN: This is a 77-year-old male who has a history of traumatic brain injury, history of dementia, history of seizure disorder, who was brought to the emergency room with progressive dyspnea and was found to have deep vein thrombosis and pulmonary embolism. 1. Extensive pulmonary emboli involving the right main, upper and lower lobe pulmonary artery, as well as left upper lobe pulmonary artery. He also has nonocclusive thrombus in the mid portion of the right superficial femoral vein. The patient is currently on heparin. I agree with the current treatment. We can convert him to Lovenox. We will need to decide on long-term anticoagulation for this patient. His social situation is unclear at this time. It is unclear whether he lives in a long-term facility. We will make further recommendations regarding long-term anticoagulation over the next few days. Continue anticoagulation with Lovenox 1 mg/kg b.i.d. 2. Chronically ill patient with a history of traumatic brain injury and dementia. 3. History of seizure disorder. 4. History of coronary artery disease. 5. Respiratory distress due to pulmonary embolism. Thank you for allowing me to participate in the care of this patient. I will continue to follow this patient along. MD DEMOND Rome/CORDELL , 06:21 PM , 06:55 PM
[2017-11-10] MEDS: PRAVASTATIN SOD 80 MG TAB PO SCH (21:48)
[2017-11-10] MEDS: INSULIN DETEMIR 100 UNITS/ML VIAL SQ SCH (21:51)
[2017-11-11] VITALS (15 sets, daily range): BP systolic 119–141; BP diastolic 63–79; PULSE 94–111; RESP 14–17; TEMP 98.4–99.6; O2SAT 98–100
[2017-11-11] MEDS: RESP: ALBUTEROL 2.5 MG/IPRATROPIUM 0.5 MG NEB (SCH) NEB ×6 (00:11→21:10)
[2017-11-11] MEDS: PIPERACIL-TAZO 4.5 GM PREMIX 100 ML IV SCH ×4 (03:58→19:42)
[2017-11-11] MEDS: DOCUSATE SODIUM 100 MG CAP PO SCH ×2 (04:29→18:28)
[2017-11-11 06:45] LABS: HEMATOCRIT 34.2 % (39.0-51.0); HEMOGLOBIN 11.4 GM/DL (13.0-17.0); MEAN CELL VOLUME 86.7 FL (80.0-100.0); MEAN CORPUSCULAR HGB CONC 33.4 % (32.0-36.0); MEAN PLATELET VOLUME 7.6 FL (7.0-11.0); PLATELET COUNT 293 TH/MM3 (150-450); RED BLOOD COUNT 3.94 MIL/MM3 (4.50-5.90); RED CELL DISTRIBUTION WIDTH 15.3 % (11.6-17.2); WHITE BLOOD COUNT 12.7 TH/MM3 (4.0-11.0)
[2017-11-11 07:09] LABS: BICARBONATE 32.4 MEQ/L (21.0-32.0); CALCIUM 8.6 MG/DL (8.5-10.1); CREATININE 1.06 MG/DL (0.60-1.30)
[2017-11-11] MEDS: INSULIN ASPART SUPPLEMENTAL SCALE SQ SCH ×2 (08:00→12:00)
[2017-11-11] MEDS: SENNOSIDES SYRUP 8.8 MG/5 ML CUP PO SCH (09:00)
[2017-11-11] MEDS: LACTULOSE SYRUP 20 GM/30 ML CUP PO SCH ×3 (09:00→18:28)
[2017-11-11] MEDS: FAMOTIDINE 20 MG TAB PO SCH ×2 (09:02→19:42)
[2017-11-11] MEDS: MEMANTINE HCL 10 MG TAB PO SCH (09:02)
[2017-11-11] MEDS: TOLTERODINE TARTRATE 4 MG CAP LA PO SCH (09:02)
[2017-11-11] MEDS: MULTIVITAMINS/MINERALS THERAPEUTIC TAB PO SCH (09:03)
[2017-11-11] MEDS: METOPROLOL TARTRATE 25 MG TAB PO SCH ×2 (09:03→19:42)
[2017-11-11] MEDS: DONEPEZIL HCL 5 MG TAB PO SCH (09:03)
[2017-11-11] MEDS: levETIRAcetam INJ 100 ML IV SCH ×2 (09:06→19:42)
--- NOTE | 2017-11-11 09:46 | PD.ONC.PN ---
Subjective Subjective Remarks Afebrile overnight. Patient non-verbal. In bed in restraints. Per nurse no overnight events. no evidence of or obvious bleeding. Objective Data Date Time Temp Pulse Resp B/P (MAP) Pulse Ox O2 Delivery O2 Flow Rate FiO2 11/11/17 08:54 100 Nasal Cannula 2.00 11/11/17 06:00 100 11/11/17 04:00 100 11/11/17 04:00 98.7 100 16 135/63 (87) 100 11/11/17 02:00 107 11/11/17 00:12 100 Nasal Cannula 2.00 11/11/17 00:00 96 11/11/17 00:00 99.6 96 17 135/70 (91) 100 11/10/17 22:00 108 11/10/17 20:00 99.7 109 16 136/68 (90) 100 11/10/17 20:00 109 11/10/17 19:00 100 Nasal Cannula 2.00 11/10/17 18:00 103 11/10/17 16:00 98.6 104 17 120/60 (80) 100 11/10/17 16:00 104 11/10/17 14:00 111 11/10/17 13:23 12 11/10/17 12:00 100.3 101 14 114/63 (80) 99 11/10/17 12:00 101 11/10/17 10:00 96 11/11/17 11/11/17 11/11/17 06:59 14:59 22:59 Intake Total 550 ml Output Total 875 ml Balance -325 ml Result Diagram: 11/11/1762311/11/17623 Laboratory Results Laboratory Tests Test 11/11/17 06:24 White Blood Count 12.7 TH/MM3 Red Blood Count 3.94 MIL/MM3 Hemoglobin 11.4 GM/DL Hematocrit 34.2 % Mean Corpuscular Volume 86.7 FL Mean Corpuscular Hemoglobin 29.0 PG Mean Corpuscular Hemoglobin Concent 33.4 % Red Cell Distribution Width 15.3 % Platelet Count 293 TH/MM3 Mean Platelet Volume 7.6 FL Blood Urea Nitrogen 6 MG/DL Creatinine 1.06 MG/DL Random Glucose 404 MG/DL Calcium Level 8.6 MG/DL Sodium Level 139 MEQ/L Potassium Level 3.8 MEQ/L Chloride Level 100 MEQ/L Carbon Dioxide Level 32.4 MEQ/L Anion Gap 7 MEQ/L Estimat Glomerular Filtration Rate 82 ML/MIN Administered Medications Medications (Trade) Dose Ordered Sig/Rylie Route PRN Reason Start Time Stop Time Status Last Admin Dose Admin Heparin Sodium/ Dextrose 250 ml @ 14 mls/hr TITRATE PRN IV Coagulation Management 11/05/17 16:45 11/10/17 06:02 Miscellaneous Information Patient in critical care unit? Ass... [id number] .XX 11/06/17 02:00 11/06/17 02:00 Levetriacetam 100 ml @ 400 mls/hr Q12HR IV 11/06/17 09:00 11/11/17 09:06 Acetaminophen (Tylenol) 325 mg Q4H PRN PO PAIN SCALE 1 TO 7 11/06/17 03:30 11/10/17 12:23 Donepezil HCl (Aricept) 2.5 mg DAILY PO 11/06/17 09:00 11/11/17 09:03 Memantine (Namenda) 10 mg DAILY PO 11/06/17 09:00 11/11/17 09:02 Multivitamins/ Minerals Therapeutic (Theragran M Tab) 1 tab DAILY PO 11/06/17 09:00 11/11/17 09:03 Tolterodine Tartrate (Detrol La) 4 mg DAILY PO 11/06/17 09:00 11/11/17 09:02 Pravastatin Sodium (Pravachol) 80 mg HS PO 11/06/17 21:00 11/10/17 21:48 Piperacillin Sod/ Tazobactam Sod 100 ml @ 200 mls/hr Q6H IV 11/06/17 10:00 11/11/17 09:06 Metoprolol Tartrate (Lopressor) 25 mg Q12HR PO 11/06/17 10:00 11/11/17 09:03 Famotidine (Pepcid) 20 mg Q12H PO 11/07/17 20:00 11/11/17 09:02 Vancomycin HCl 1000 mg/Sodium Chloride 250 ml @ 250 mls/hr Q12H IV 11/07/17 22:00 11/10/17 21:50 Potassium Bicarb/ Potassium Chloride (K-Lyte Cl Eff) 50 meq UNSCH PRN PO For Potassium 3.3 - 3.5 mEq/L 11/07/17 14:15 11/07/17 16:50 Sennosides (Senna Liq) 8.8 mg DAILY PO 11/07/17 17:00 11/10/17 09:10 Docusate Sodium (Colace) 100 mg Q12H PO 11/07/17 18:00 11/10/17 16:43 Lactulose (Lactulose Liq) 30 ml TID PO 11/07/17 18:00 11/10/17 16:43 Insulin Aspart (NovoLOG SUPPLEMENTAL SCALE) 1 ACHS SLIDING SCALE SQ 11/09/17 12:00 11/11/17 08:00 Insulin Detemir (Levemir Inj) 10 units HS SQ 11/09/17 21:00 11/10/17 21:51 Albuterol/ Ipratropium (Duoneb Neb) 1 ampule Q4HR NEB NEB 11/10/17 12:00 11/11/17 08:54 Objective Remarks GENERAL: Elderly male, lying supine in bed. on O2 via NC SKIN: Warm and dry. HEAD: Normocephalic. EYES: No injection or drainage. NECK: Supple, trachea midline. CARDIOVASCULAR: Regular rate and rhythm RESPIRATORY: anterior patiño clear. on O2 via NC GASTROINTESTINAL: Abdomen soft, non-tender, nondistended. EXTREMITIES: No cyanosis NEUROLOGICAL: awake. following commands. non-verbal. Assessment/Plan Problem List: (1) Pulmonary embolism ICD Codes: I26.99 - Other pulmonary embolism without acute cor pulmonale Status: Acute Plan: --on heparin gtt --Extensive pulmonary emboli involving the right main, upper and lower lobe pulmonary artery, as well as left upper lobe pulmonary artery. --nonocclusive thrombus in the mid portion of the right superficial femoral vein. Assessment 77y/o male admitted with dyspnea. CTA showed extensive pulmonary emboli + RLE DVT. history of seizure disorder and also history of dementia History of a traumatic brain injury in 2015, dementia, CVA, diabetes, seizure disorder, coronary artery disease, hypertension, GERD. History of bilateral craniotomy and cardiac catheterization. Plan 1. stop heparin gtt. 2. start Lovenox 70mg SQ BID 3. monitor CBC Attending Statement The exam, history, and the medical decision-making described in the above note were completed with the assistance of the mid-level provider. I reviewed and agree with the findings presented. I attest that I had a [id number] encounter with the patient on the same day, and personally performed and documented my assessment and findings in the medical record. Problem Qualifiers (1) Pulmonary embolism: Qualified Codes: I26.99 - Other pulmonary embolism without acute cor pulmonale Ibeth Thornton Nov 11, 2017 09:46 Ambrose Dawn MD Nov 11, 2017 22:13
[2017-11-11] MEDS: VANCOMYCIN INJ 1,000 MG in SODIUM CHLOR 0.9% 250 ML INJ 250 ML IV SCH (11:03)
[2017-11-11] MEDS: ENOXAPARIN SODIUM 80 MG/0.8 ML SYRINGE SQ SCH ×2 (11:03→22:47)
[2017-11-11] MEDS ORDERED: INSULIN REGULAR (IV INFUSION) 100 UNITS in SODIUM CHLORIDE 0.9% INJ 99 ML IV PRN (11:45)
[2017-11-11] MEDS ORDERED: DEXTROSE 50% IN WATER 50 ML VIAL(D50) IV PUSH PRN (11:45)
[2017-11-11] MEDS ORDERED: MISC INFORMATION OTHER ONE (11:45)
--- NOTE | 2017-11-11 11:53 | HHI.PR ---
Subjective Remarks Follow-up metabolic encephalopathy/PE/UTI/respiratory failure November 09, 2017-patient seen and examined, no acute event overnight and currently vital stable. NG tube in place. Restraints in place upper extremities November 10, 2017-patient seen and examined, alert but not following commands. no acute event overnight. Currently afebrile November 11, 2017-patient seen and examined, although alert however patient does not follow much of any commands. Son by the bedside. Elevated blood glucose. Currently on Lovenox subcu hematology. Objective Vitals Vital Signs Date Time Temp Pulse Resp B/P (MAP) Pulse Ox O2 Delivery O2 Flow Rate FiO2 11/11/17 10:00 111 11/11/17 08:54 100 Nasal Cannula 2.00 11/11/17 08:00 98.4 106 17 131/79 (96) 100 11/11/17 08:00 106 11/11/17 07:00 100 Nasal Cannula 2.00 11/11/17 06:00 100 11/11/17 04:00 100 11/11/17 04:00 98.7 100 16 135/63 (87) 100 11/11/17 02:00 107 11/11/17 00:12 100 Nasal Cannula 2.00 11/11/17 00:00 96 11/11/17 00:00 99.6 96 17 135/70 (91) 100 11/10/17 22:00 108 11/10/17 20:00 99.7 109 16 136/68 (90) 100 11/10/17 20:00 109 11/10/17 19:00 100 Nasal Cannula 2.00 11/10/17 18:00 103 11/10/17 16:00 98.6 104 17 120/60 (80) 100 11/10/17 16:00 104 11/10/17 14:00 111 11/10/17 13:23 12 11/10/17 12:00 100.3 101 14 114/63 (80) 99 11/10/17 12:00 101 I/O 11/10/17 11/10/17 11/10/17 11/11/17 11/11/17 11/11/17 06:59 14:59 22:59 06:59 14:59 22:59 Intake Total 930 ml 550 ml 1046 ml 550 ml 200 ml Output Total 550 ml 500 ml 875 ml Balance 380 ml 550 ml 546 ml -325 ml 200 ml IV Total 350 ml 550 ml 256 ml 550 ml 200 ml Tube Feeding 580 ml 515 ml Other 275 ml Output Urine Total 550 ml 500 ml 875 ml # Voids 2 2 # Bowel Movements 1 1 1 Result Diagram: 11/11/1762311/11/17623 Objective Remarks GENERAL: NAD with NGT in place SKIN: Warm and dry. HEAD: Normocephalic. EYES: No scleral icterus. No injection or drainage. NECK: Supple, trachea midline. No JVD or lymphadenopathy. CARDIOVASCULAR: Regular rate and rhythm without murmurs, gallops, or rubs. RESPIRATORY: Breath sounds decrease bilaterally. No accessory muscle use. GASTROINTESTINAL: Abdomen soft, non-tender, nondistended. MUSCULOSKELETAL: No cyanosis, or edema. Restrains to BUEs BACK: Nontender without obvious deformity. No CVA tenderness. A/P Problem List: (1) Metabolic encephalopathy ICD Code: G93.41 - Metabolic encephalopathy (2) Pulmonary embolism ICD Code: I26.99 - Other pulmonary embolism without acute cor pulmonale Status: Acute Assessment and Plan 77-year-old man with 1)Respiratory failure Continue with oxygen keep sats >92% Bronchodilators, 2)-Pulmonary embolism CTA + PE Doppler US LE: Non-occlusive thrombus within the midportion of the right superficial femoral vein. Currently on Lovenox subcu 70 mg every 12 hours, heparin was discontinued yesterday. Appreciate input from hematology 3)Hypertension Monitor HR and BP keep MAP>65mmHg On Lopressor 25mg Q12 Echo showed EF 65-70%, normal RV size and func 4)Diabetes mellitus-labile blood glucose Will start patient on insulin drip November 11, 2017 5)Seizure disorder Stable on Keppra IV 6)Dementia Continue Aricept 2.5mg daily and Namenda 10mg daily 7)GERD On Pepcid 8)Coronary artery disease 9)UTI Continue with Zosyn, Vanco and monitor for signs of infections CT chest showed bibasilar atelectasis vs infiltrate and b/l PE strep pneumonia and Legionella urinary Ag negative DVT GI prophylaxis -Dilip's and SCDs -Pepcid -Lovenox Problem Qualifiers (1) Pulmonary embolism: Qualified Codes: I26.99 - Other pulmonary embolism without acute cor pulmonale Miguel Contreras MD Nov 11, 2017 11:53
[2017-11-11] MEDS: PRAVASTATIN SOD 80 MG TAB PO SCH (19:42)
[2017-11-12] VITALS (13 sets, daily range): BP systolic 108–138; BP diastolic 62–74; PULSE 95–114; RESP 14–18; TEMP 98.9–100.4; O2SAT 99–100
[2017-11-12] MEDS: RESP: ALBUTEROL 2.5 MG/IPRATROPIUM 0.5 MG NEB (SCH) NEB ×6 (00:47→21:33)
[2017-11-12] MEDS: DOCUSATE SODIUM 100 MG CAP PO SCH ×2 (04:31→18:07)
[2017-11-12] MEDS: PIPERACIL-TAZO 4.5 GM PREMIX 100 ML IV SCH ×4 (04:31→22:46)
[2017-11-12 05:04] LABS: AUTOMATED NEUTROPHIL # 9.5 TH/MM3 (1.8-7.7); BASOPHIL # 0.1 TH/MM3 (0-0.2); BASOPHIL % 0.6 % (0.0-2.0); EOSINOPHIL # 0.6 TH/MM3 (0-0.4); EOSINOPHIL % 4.6 % (0.0-4.0); HEMATOCRIT 33.7 % (39.0-51.0); HEMOGLOBIN 11.1 GM/DL (13.0-17.0); LYMPH % 10.3 % (9.0-44.0); LYMPHOCYTE # 1.3 TH/MM3 (1.0-4.8); MEAN CELL VOLUME 86.3 FL (80.0-100.0); MEAN CORPUSCULAR HEMOGLOBIN 28.5 PG (27.0-34.0); MEAN CORPUSCULAR HGB CONC 33.1 % (32.0-36.0); MEAN PLATELET VOLUME 7.8 FL (7.0-11.0); MONO % 7.8 % (0.0-8.0); NEUT % 76.7 % (16.0-70.0); PLATELET COUNT 344 TH/MM3 (150-450); RED BLOOD COUNT 3.91 MIL/MM3 (4.50-5.90); RED CELL DISTRIBUTION WIDTH 15.6 % (11.6-17.2); WHITE BLOOD COUNT 12.4 TH/MM3 (4.0-11.0)
[2017-11-12 05:08] LABS: BICARBONATE 32.3 MEQ/L (21.0-32.0); CALCIUM 8.9 MG/DL (8.5-10.1); CREATININE 0.97 MG/DL (0.60-1.30)
[2017-11-12] MEDS: FAMOTIDINE 20 MG TAB PO SCH ×2 (08:09→21:56)
[2017-11-12] MEDS: MEMANTINE HCL 10 MG TAB PO SCH (08:10)
[2017-11-12] MEDS: DONEPEZIL HCL 5 MG TAB PO SCH (08:10)
[2017-11-12] MEDS: levETIRAcetam INJ 100 ML IV SCH ×2 (08:10→21:54)
[2017-11-12] MEDS: METOPROLOL TARTRATE 25 MG TAB PO SCH ×2 (08:10→21:56)
[2017-11-12] MEDS: MULTIVITAMINS/MINERALS THERAPEUTIC TAB PO SCH (08:10)
[2017-11-12] MEDS: TOLTERODINE TARTRATE 4 MG CAP LA PO SCH (08:24)
[2017-11-12] MEDS: LACTULOSE SYRUP 20 GM/30 ML CUP PO SCH ×3 (09:00→18:07)
[2017-11-12] MEDS: SENNOSIDES SYRUP 8.8 MG/5 ML CUP PO SCH (09:00)
--- NOTE | 2017-11-12 09:58 | HHI.PR ---
Subjective Remarks Follow-up metabolic encephalopathy/PE/UTI/respiratory failure November 09, 2017-patient seen and examined, no acute event overnight and currently vital stable. NG tube in place. Restraints in place upper extremities November 10, 2017-patient seen and examined, alert but not following commands. no acute event overnight. Currently afebrile November 11, 2017-patient seen and examined, although alert however patient does not follow much of any commands. Son by the bedside. Elevated blood glucose. Currently on Lovenox subcu hematology. November 12, 2017-patient seen and examined, blood glucose improving, afebrile. + Nonproductive cough Objective Vitals Vital Signs Date Time Temp Pulse Resp B/P (MAP) Pulse Ox O2 Delivery O2 Flow Rate FiO2 11/12/17 08:00 98 11/12/17 08:00 99 Nasal Cannula 2.00 11/12/17 08:00 99 Nasal Cannula 2.00 11/12/17 08:00 100.4 98 18 134/72 (92) 99 11/12/17 06:00 114 11/12/17 04:00 99.2 109 18 138/74 (95) 100 11/12/17 04:00 109 11/12/17 02:00 109 11/12/17 00:00 98.9 101 17 134/65 (88) 100 11/12/17 00:00 101 11/11/17 22:00 100 11/11/17 21:10 100 Nasal Cannula 2.00 11/11/17 20:00 99.1 103 14 138/74 (95) 11/11/17 20:00 103 11/11/17 19:00 100 Nasal Cannula 2.00 11/11/17 18:00 106 11/11/17 16:00 97 11/11/17 16:00 99.0 97 14 141/74 (96) 98 11/11/17 14:00 97 11/11/17 12:00 94 11/11/17 12:00 98.8 94 14 119/66 (83) 100 11/11/17 10:00 111 I/O 11/11/17 11/11/17 11/11/17 11/12/17 11/12/17 11/12/17 07:00 15:00 23:00 07:00 15:00 23:00 Intake Total 450 ml 200 ml 898 ml 711 ml Output Total 875 ml 950 ml 750 ml Balance -425 ml 200 ml -52 ml -39 ml IV Total 450 ml 200 ml 200 ml 100 ml Tube Feeding 598 ml 551 ml Other 100 ml 60 ml Output Urine Total 875 ml 950 ml 750 ml # Voids 2 # Bowel Movements 1 1 3 Result Diagram: 11/12/1732911/12/17329 Objective Remarks GENERAL: NAD with NGT in place SKIN: Warm and dry. HEAD: Normocephalic. EYES: No scleral icterus. No injection or drainage. NECK: Supple, trachea midline. No JVD or lymphadenopathy. CARDIOVASCULAR: Regular rate and rhythm without murmurs, gallops, or rubs. RESPIRATORY: Breath sounds decrease bilaterally. No accessory muscle use. GASTROINTESTINAL: Abdomen soft, non-tender, nondistended. MUSCULOSKELETAL: No cyanosis, or edema. Restrains to BUEs BACK: Nontender without obvious deformity. No CVA tenderness. A/P Problem List: (1) Metabolic encephalopathy ICD Code: G93.41 - Metabolic encephalopathy (2) Pulmonary embolism ICD Code: I26.99 - Other pulmonary embolism without acute cor pulmonale Status: Acute Assessment and Plan 77-year-old man with 1)Respiratory failure Continue with oxygen keep sats >92% Bronchodilators, Chest x-ray this a.m. to rule out pulmonary infiltrate November 12, 2017 2)-Pulmonary embolism CTA + PE Doppler US LE: Non-occlusive thrombus within the midportion of the right superficial femoral vein. Currently on Lovenox subcu 70 mg every 12 hours,s/p heparin Appreciate input from hematology 3)Hypertension Monitor HR and BP keep MAP>65mmHg On Lopressor 25mg Q12 Echo showed EF 65-70%, normal RV size and func 4)Diabetes mellitus-Improving blood glucose Continue insulin drip until November 12, 2017 Continue to Hold Levemir HS 5)Seizure disorder Stable on Keppra IV 6)Dementia Continue Aricept 2.5mg daily and Namenda 10mg daily 7)GERD On Pepcid 8)Coronary artery disease 9)UTI Continue with Zosyn and monitor for signs of infections CT chest showed bibasilar atelectasis vs infiltrate and b/l PE strep pneumonia and Legionella urinary Ag negative DVT GI prophylaxis -Dilip's and SCDs -Pepcid -Lovenox Transfer to Med/Surg [facility] Problem Qualifiers (1) Pulmonary embolism: Qualified Codes: I26.99 - Other pulmonary embolism without acute cor pulmonale Miguel Contreras MD Nov 12, 2017 09:58
--- NOTE | 2017-11-12 10:52 | RADRPT ---
EXAM DATE/TIME: 11/12/2017 10:08 [facility] COMPARISON: CHEST SINGLE AP, November 07, 2017, 8:31. INDICATIONS : Short of breath, coughing, evaluate infiltrates MEDICAL HISTORY : Hypertension. Diabetes mellitus type II. Gastroesophageal reflux disease. seizures, Alzheimer's, stroke SURGICAL HISTORY : Craniotomy. ENCOUNTER: Subsequent ACUITY: 2 weeks PAIN SCORE: Non-responsive. LOCATION: Bilateral chest FINDINGS: A single view of the chest demonstrates left basilar density. Elevation left hemidiaphragm. Nasogastr ic tube tip in stomach. Right lung clear. The cardiomediastinal contours are unremarkable. Osseous structures are intact. CONCLUSION: Persistent left basilar density with elevation left hemidiaphragm. Miguel Ribera MD on November 12, 2017 at 10:49 Board Certified Radiologist. This report was verified electronically.
[2017-11-12] MEDS: ENOXAPARIN SODIUM 80 MG/0.8 ML SYRINGE SQ SCH ×2 (11:27→21:54)
[2017-11-12] MEDS ORDERED: GLUCAGON 1 MG/ML VIAL OTHER PRN (18:45)
[2017-11-12] MEDS ORDERED: DEXTROSE 50% IN WATER 50 ML VIAL(D50) IV PUSH PRN (18:45)
[2017-11-12] MEDS: MEDIUM DOSE INSULIN NOVOLOG SUPPLEMENTAL SCALE SQ SCH (21:00)
[2017-11-12] MEDS ORDERED: INSULIN DETEMIR 100 UNITS/ML VIAL SQ SCH (21:00)
[2017-11-12] MEDS: INSULIN DETEMIR 100 UNITS/ML VIAL SQ SCH (21:00)
[2017-11-12] MEDS: PRAVASTATIN SOD 80 MG TAB PO SCH (21:56)
[2017-11-13] VITALS (14 sets, daily range): BP systolic 107–133; BP diastolic 60–86; PULSE 99–122; RESP 14–17; TEMP 98.4–100; O2SAT 96–100
[2017-11-13] MEDS: RESP: ALBUTEROL 2.5 MG/IPRATROPIUM 0.5 MG NEB (SCH) NEB ×6 (00:44→20:30)
[2017-11-13] MEDS: PIPERACIL-TAZO 4.5 GM PREMIX 100 ML IV SCH ×4 (05:19→21:53)
[2017-11-13] MEDS: DOCUSATE SODIUM 100 MG CAP PO SCH ×2 (05:20→17:46)
[2017-11-13] MEDS: TOLTERODINE TARTRATE 4 MG CAP LA PO SCH (07:48)
[2017-11-13] MEDS: MEMANTINE HCL 10 MG TAB PO SCH (07:48)
[2017-11-13] MEDS: levETIRAcetam INJ 100 ML IV SCH ×2 (07:48→21:56)
[2017-11-13] MEDS: SENNOSIDES SYRUP 8.8 MG/5 ML CUP PO SCH (07:49)
[2017-11-13] MEDS: FAMOTIDINE 20 MG TAB PO SCH ×2 (07:49→21:55)
[2017-11-13] MEDS: MULTIVITAMINS/MINERALS THERAPEUTIC TAB PO SCH (07:49)
[2017-11-13] MEDS: DONEPEZIL HCL 5 MG TAB PO SCH (07:49)
[2017-11-13] MEDS: METOPROLOL TARTRATE 25 MG TAB PO SCH ×2 (07:49→21:55)
[2017-11-13] MEDS: LACTULOSE SYRUP 20 GM/30 ML CUP PO SCH ×3 (07:51→17:47)
[2017-11-13] MEDS: MEDIUM DOSE INSULIN NOVOLOG SUPPLEMENTAL SCALE SQ SCH ×4 (07:51→21:00)
[2017-11-13 08:19] LABS: AUTOMATED NEUTROPHIL # 9.2 TH/MM3 (1.8-7.7); BASOPHIL # 0.1 TH/MM3 (0-0.2); BASOPHIL % 0.8 % (0.0-2.0); EOSINOPHIL # 0.6 TH/MM3 (0-0.4); EOSINOPHIL % 4.9 % (0.0-4.0); HEMATOCRIT 36.2 % (39.0-51.0); LYMPH % 11.1 % (9.0-44.0); LYMPHOCYTE # 1.3 TH/MM3 (1.0-4.8); MEAN CELL VOLUME 86.1 FL (80.0-100.0); MEAN CORPUSCULAR HEMOGLOBIN 28.7 PG (27.0-34.0); MEAN CORPUSCULAR HGB CONC 33.3 % (32.0-36.0); MEAN PLATELET VOLUME 8.4 FL (7.0-11.0); MONO % 6.3 % (0.0-8.0); MONOCYTE # 0.8 TH/MM3 (0-0.9); NEUT % 76.9 % (16.0-70.0); PLATELET COUNT 382 TH/MM3 (150-450); RED CELL DISTRIBUTION WIDTH 15.8 % (11.6-17.2)
[2017-11-13 08:44] LABS: BICARBONATE 30.3 MEQ/L (21.0-32.0); CALCIUM 9.2 MG/DL (8.5-10.1); CREATININE 1.01 MG/DL (0.60-1.30)
--- NOTE | 2017-11-13 09:05 | HHI.PR ---
Subjective Remarks Follow-up metabolic encephalopathy/PE/UTI/respiratory failure November 09, 2017-patient seen and examined, no acute event overnight and currently vital stable. NG tube in place. Restraints in place upper extremities November 10, 2017-patient seen and examined, alert but not following commands. no acute event overnight. Currently afebrile November 11, 2017-patient seen and examined, although alert however patient does not follow much of any commands. Son by the bedside. Elevated blood glucose. Currently on Lovenox subcu hematology. November 12, 2017-patient seen and examined, blood glucose improving, afebrile. + Nonproductive cough November 13, 2017-patient seen and examined, blood glucose labile, stable and no acute event overnight Objective Vitals Vital Signs Date Time Temp Pulse Resp B/P (MAP) Pulse Ox O2 Delivery O2 Flow Rate FiO2 11/13/17 08:03 96 11/13/17 06:00 107 11/13/17 04:00 99 11/13/17 04:00 98.4 107 14 133/74 (93) 100 11/13/17 02:00 99 11/13/17 00:00 101 11/13/17 00:00 99.1 101 15 115/65 (82) 100 11/12/17 22:00 95 11/12/17 21:33 100 Nasal Cannula 2.00 11/12/17 20:00 99.0 98 16 108/69 (82) 100 11/12/17 20:00 98 11/12/17 19:00 100 Nasal Cannula 2.00 11/12/17 18:00 105 11/12/17 16:00 101 11/12/17 16:00 99.9 101 14 111/62 (78) 100 11/12/17 14:00 111 11/12/17 12:00 99.8 104 15 127/70 (89) 100 11/12/17 12:00 104 11/12/17 10:00 105 I/O 11/12/17 11/12/17 11/12/17 11/13/17 11/13/17 11/13/17 07:00 15:00 23:00 07:00 15:00 23:00 Intake Total 711 ml 860 ml 725 ml Output Total 750 ml 650 ml 550 ml Balance -39 ml 210 ml 175 ml IV Total 100 ml 100 ml 200 ml Tube Feeding 551 ml 660 ml 465 ml Other 60 ml 100 ml 60 ml Output Urine Total 750 ml 650 ml 550 ml # Bowel Movements 3 0 2 Result Diagram: 11/13/17 0645 11/13/17 0645 Imaging Last Impressions Chest X-Ray 11/12/17 0000 Signed Impressions: Service Date/Time: Sunday, November 12, 2017 10:08 - CONCLUSION: Persistent left basilar density with elevation left hemidiaphragm. Miguel Ribera MD Abdomen X-Ray 11/07/17 0000 Signed Impressions: Service Date/Time: October 15:36 - CONCLUSION: Nasogastric tube has its tip in the proximal stomach. Sabas Hook MD Lower Extremity Ultrasound 11/06/17 0000 Signed Impressions: Service Date/Time: Monday, November 06, 2017 10:42 - CONCLUSION: Non- occlusive thrombus within the midportion of the right superficial femoral vein. Sabas Hook MD CT Angiography 11/05/17 1456 Signed Impressions: Service Date/Time: Sunday, November 05, 2017 16:10 - CONCLUSION: 1. Extensive pulmonary emboli involving the right main, upper and lower lobe pulmonary arteries as well as the left upper lobe pulmonary artery. 2. Elevation of the left hemidiaphragm. 3. Posterior bibasilar atelectasis and/or infiltrates. 4. Degenerative changes throughout the thoracic spine. Sabas Hook MD Objective Remarks GENERAL: NAD with NGT in place SKIN: Warm and dry. HEAD: Normocephalic. EYES: No scleral icterus. No injection or drainage. NECK: Supple, trachea midline. No JVD or lymphadenopathy. CARDIOVASCULAR: Regular rate and rhythm without murmurs, gallops, or rubs. RESPIRATORY: Breath sounds decrease bilaterally. No accessory muscle use. GASTROINTESTINAL: Abdomen soft, non-tender, nondistended. MUSCULOSKELETAL: No cyanosis, or edema. Restrains to BUEs BACK: Nontender without obvious deformity. No CVA tenderness. A/P Problem List: (1) Metabolic encephalopathy ICD Code: G93.41 - Metabolic encephalopathy (2) Pulmonary embolism ICD Code: I26.99 - Other pulmonary embolism without acute cor pulmonale Status: Acute Assessment and Plan 77-year-old man with 1)Respiratory failure Continue with oxygen keep sats >92% Bronchodilators, Chest x-ray this a.m. to rule out pulmonary infiltrate November 12, 2017 2)-Pulmonary embolism CTA + PE Doppler US LE: Non-occlusive thrombus within the midportion of the right superficial femoral vein. Currently on Lovenox subcu 70 mg every 12 hours,s/p heparin Appreciate input from hematology 3)Hypertension Monitor HR and BP keep MAP>65mmHg On Lopressor 25mg Q12 Echo showed EF 65-70%, normal RV size and func 4)Diabetes mellitus-Labile blood glucose s/p insulin drip November 12, 2017 Increase Levemir HS to 15 units and continue medium ISS 5)Seizure disorder Stable on Keppra IV 6)Dementia Continue Aricept 2.5mg daily and Namenda 10mg daily 7)GERD On Pepcid 8)Coronary artery disease 9)UTI Continue with Zosyn and monitor for signs of infections CT chest showed bibasilar atelectasis vs infiltrate and b/l PE strep pneumonia and Legionella urinary Ag negative DVT GI prophylaxis -Dilip's and SCDs -Pepcid -Lovenox Transfer to Med/Surg [facility] Problem Qualifiers (1) Pulmonary embolism: Qualified Codes: I26.99 - Other pulmonary embolism without acute cor pulmonale Miguel Contreras MD Nov 13, 2017 09:05
[2017-11-13] MEDS: ENOXAPARIN SODIUM 80 MG/0.8 ML SYRINGE SQ SCH ×2 (10:18→21:54)
[2017-11-13] MEDS: INSULIN DETEMIR 100 UNITS/ML VIAL SQ SCH (21:55)
[2017-11-13] MEDS: PRAVASTATIN SOD 80 MG TAB PO SCH (21:55)
[2017-11-14] VITALS (14 sets, daily range): BP systolic 99–155; BP diastolic 58–84; PULSE 98–122; RESP 14–18; TEMP 98.5–100.6; O2SAT 97–100
[2017-11-14] MEDS: RESP: ALBUTEROL 2.5 MG/IPRATROPIUM 0.5 MG NEB (SCH) NEB ×4 (00:46→10:06)
[2017-11-14] MEDS: PIPERACIL-TAZO 4.5 GM PREMIX 100 ML IV SCH ×4 (06:19→21:35)
[2017-11-14] MEDS: DOCUSATE SODIUM 100 MG CAP PO SCH ×2 (06:19→17:17)
[2017-11-14 06:49] LABS: AUTOMATED NEUTROPHIL # 9.9 TH/MM3 (1.8-7.7); BASOPHIL # 0.1 TH/MM3 (0-0.2); BASOPHIL % 0.8 % (0.0-2.0); EOSINOPHIL # 0.6 TH/MM3 (0-0.4); EOSINOPHIL % 4.2 % (0.0-4.0); HEMATOCRIT 37.9 % (39.0-51.0); HEMOGLOBIN 12.9 GM/DL (13.0-17.0); LYMPH % 13.2 % (9.0-44.0); LYMPHOCYTE # 1.8 TH/MM3 (1.0-4.8); MEAN CELL VOLUME 85.7 FL (80.0-100.0); MEAN CORPUSCULAR HEMOGLOBIN 29.2 PG (27.0-34.0); MEAN PLATELET VOLUME 8.1 FL (7.0-11.0); MONO % 7.9 % (0.0-8.0); MONOCYTE # 1.1 TH/MM3 (0-0.9); NEUT % 73.9 % (16.0-70.0); PLATELET COUNT 376 TH/MM3 (150-450); RED BLOOD COUNT 4.42 MIL/MM3 (4.50-5.90); RED CELL DISTRIBUTION WIDTH 15.8 % (11.6-17.2); WHITE BLOOD COUNT 13.5 TH/MM3 (4.0-11.0)
[2017-11-14 07:24] LABS: BICARBONATE 28.3 MEQ/L (21.0-32.0); CALCIUM 9.4 MG/DL (8.5-10.1); CREATININE 1.13 MG/DL (0.60-1.30)
[2017-11-14] MEDS: TOLTERODINE TARTRATE 4 MG CAP LA PO SCH (07:52)
[2017-11-14] MEDS: MULTIVITAMINS/MINERALS THERAPEUTIC TAB PO SCH (07:52)
[2017-11-14] MEDS: SENNOSIDES SYRUP 8.8 MG/5 ML CUP PO SCH (07:52)
[2017-11-14] MEDS: METOPROLOL TARTRATE 25 MG TAB PO SCH ×2 (07:52→20:25)
[2017-11-14] MEDS: FAMOTIDINE 20 MG TAB PO SCH ×2 (07:52→20:25)
[2017-11-14] MEDS: MEMANTINE HCL 10 MG TAB PO SCH (07:52)
[2017-11-14] MEDS: DONEPEZIL HCL 5 MG TAB PO SCH (07:52)
[2017-11-14] MEDS: MEDIUM DOSE INSULIN NOVOLOG SUPPLEMENTAL SCALE SQ SCH ×4 (07:53→21:00)
[2017-11-14] MEDS: levETIRAcetam INJ 100 ML IV SCH ×2 (07:53→20:25)
[2017-11-14] MEDS: LACTULOSE SYRUP 20 GM/30 ML CUP PO SCH ×3 (07:53→17:17)
[2017-11-14] MEDS ORDERED: RESP: ALBUTEROL CONC 2.5 MG/0.5 ML NEB INH ONE (08:45)
[2017-11-14] MEDS: SODIUM POLYSTYRENE SULFONATE SUSP 15 GM/60 ML CUP PO SCH ×4 (09:40→20:25)
[2017-11-14] MEDS: ENOXAPARIN SODIUM 80 MG/0.8 ML SYRINGE SQ SCH ×2 (11:11→22:11)
[2017-11-14] MEDS: SODIUM CHLOR 0.9% 1000 ML INJ 1,000 ML IV SCH ×2 (14:42→22:03)
[2017-11-14] MEDS: PRAVASTATIN SOD 80 MG TAB PO SCH (20:25)
[2017-11-14] MEDS: INSULIN DETEMIR 100 UNITS/ML VIAL SQ SCH (20:26)
--- NOTE | 2017-11-14 22:19 | MB ---
cc: Balta Nelson DO DATE: 11/14/2017 REASON FOR CONSULTATION: Arrhythmia, possible atrial fibrillation. HISTORY OF PRESENT ILLNESS: Rene Kurtz is a pleasantly demented 77-year-old male who presented to [facility] due to shortness of breath. He was recently in the hospital and there was a neurological concern as he had generalized weakness. This was felt to be due to Dilantin toxicity. He was discharged to the correction, but was noted to be more short of breath, coughing and congested. Apparently when EMS arrived, his pulse oximetry was in the high 80s low 90s. A CT angiogram was done and he was found to have extensive pulmonary emboli in multiple lobes. He was started on a heparin drip and admitted to the ICU. During his workup, he was also found to have nonocclusive thrombus within the mid portion of his right superficial femoral vein. While in the ICU, he was noted to have an elevated heart rate above 100 pretty consistently and I was asked to see him for arrhythmia and possible atrial fibrillation with rapid ventricular response. In seeing him, he is pleasantly demented and unable to provide any information. PAST MEDICAL HISTORY: 1. Traumatic brain injury (2014). 2. CVA. 3. Dementia. 4. Diabetes. 5. Seizure disorder. 6. Coronary artery disease. 7. Hypertension. 8. Gastroesophageal reflux disease. PAST SURGICAL HISTORY: 1. Bilateral craniotomy. 2. 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 ALLERGIES: NO KNOWN DRUG ALLERGIES. MEDICATIONS: 1. Aricept 2.5 mg daily. 2. Zocor 40 mg every night. 3. Tylenol every 4 hours as needed for pain. 4. Keppra 1000 mg b.i.d. 5. ____ mg daily. 6. Omeprazole 20 mg daily. 7. NovoLog sliding scale. 8. Levemir 10 units daily. 9. Glipizide 10 mg daily. 10. Oxybutynin ER 5 mg b.i.d. FAMILY HISTORY: Per the EMR, no significant premature coronary artery disease known. SOCIAL HISTORY: Per EMR, no tobacco, alcohol or drug abuse. REVIEW OF SYSTEMS: Unable to obtain due to the patient's current situation other than significant shortness of breath on arrival. PHYSICAL EXAMINATION: VITAL SIGNS: Temperature 100.6, heart rate 109, blood pressure 155/84, respirations 14, pulse oximetry 100% on room air. GENERAL: The patient is currently in no acute distress. HEENT: Extraocular muscles intact. NG tube in place. HEART: Regular rhythm, but tachycardic with no noted murmurs, gallops or rubs. LUNGS: Had decreased breath sounds bilaterally but no overt wheezes, rales or rhonchi. ABDOMEN: Soft, nontender, nondistended. No organomegaly noted. EXTREMITIES: Show no clubbing, cyanosis or edema. Femoral and distal pulses intact bilaterally. SKIN: Warm, dry and intact. NEUROLOGIC: Difficult to determine due to the patient's overall lethargy. LABORATORY DATA: Hemoglobin 12.9, hematocrit 37.9, platelets 376. Potassium 5.4, BUN 13, creatinine 1.13, troponin less than 0.02. Electrocardiogram (11/05/2017 at 1341) sinus tachycardia, incomplete right bundle branch block. IMPRESSIONS: 1. Respiratory failure. 2. Extensive pulmonary embolus. 3. Nonocclusive thrombus within the mid portion of the right superficial femoral vein. 4. Hypertension. 5. Diabetes mellitus. 6. Seizure disorder. 7. Dementia. 8. History of coronary artery disease. 9. Sinus tachycardia. RECOMMENDATIONS: 1. Mr. Kurtz appears to have extensive pulmonary embolus as well as a superficial femoral vein thrombus. He has been seen by hematology and recommended Lovenox therapy. 2. I have reviewed his telemetry while in the ICU and no atrial fibrillation was noted. It all appears to be sinus tachycardia which is consistent with his current pulmonary embolus and overall illness. No further recommendations are necessary from that standpoint. 3. I also reviewed multiple previous EKGs from the system and it does not appear that the patient has a history of atrial fibrillation. 4. From a cardiovascular standpoint, no further recommendations are necessary at this time. He will continue to be anticoagulated per hematology's recommendations. Thank you for allowing me to see Rene Kurtz. If there are any questions, please do not hesitate to call. Vincent G. Nelson, DO VGP/rt , 09:48 PM , 10:18 PM
[2017-11-15] VITALS (19 sets, daily range): BP systolic 119–147; BP diastolic 61–70; PULSE 90–101; RESP 12–15; TEMP 97.6–99.2; O2SAT 95–100
[2017-11-15] MEDS: PIPERACIL-TAZO 4.5 GM PREMIX 100 ML IV SCH ×3 (04:22→16:09)
[2017-11-15] MEDS: DOCUSATE SODIUM 100 MG CAP PO SCH ×2 (05:55→17:22)
[2017-11-15] MEDS: SODIUM CHLOR 0.9% 1000 ML INJ 1,000 ML IV SCH ×2 (05:55→13:10)
[2017-11-15] MEDS: FAMOTIDINE 20 MG TAB PO SCH ×2 (08:00→19:58)
--- NOTE | 2017-11-15 08:23 | HHI.PR ---
Subjective Remarks Late entry for 11/14/2017 Follow-up for pulmonary embolism, respiratory failure, encephalopathy. Patient is resting in bed. Does not follow commands consistently. Afebrile. Tachycardic on the monitor. Objective Vitals Vital Signs Date Time Temp Pulse Resp B/P (MAP) Pulse Ox O2 Delivery O2 Flow Rate FiO2 11/15/17 06:00 99 11/15/17 04:00 100 11/15/17 04:00 98.9 100 13 99 11/15/17 02:00 94 11/15/17 00:00 98.6 101 15 147/68 (94) 100 11/15/17 00:00 101 11/14/17 22:00 103 11/14/17 20:25 98 11/14/17 20:00 108 11/14/17 20:00 98.5 108 14 108/63 (78) 97 11/14/17 19:00 100 Room Air 11/14/17 18:00 104 11/14/17 16:00 98.8 105 15 116/68 (84) 99 11/14/17 16:00 105 11/14/17 14:00 122 11/14/17 12:00 118 11/14/17 12:00 99.6 118 16 99/58 (72) 98 11/14/17 10:00 116 I/O 11/14/17 11/14/17 11/14/17 11/15/17 11/15/17 11/15/17 06:59 14:59 22:59 06:59 14:59 22:59 Intake Total 638 ml 200 ml 2250 ml 648 ml Output Total 550 ml Balance 88 ml 200 ml 2250 ml 648 ml IV Total 100 ml 200 ml 1725 ml 100 ml Tube Feeding 478 ml 465 ml 488 ml Other 60 ml 60 ml 60 ml Output Urine Total 550 ml # Voids 6 5 # Bowel Movements 2 3 4 Result Diagram: 11/14/17 0429 11/14/17 1538 Imaging Last Impressions Chest X-Ray 11/12/17 0000 Signed Impressions: Service Date/Time: Sunday, November 12, 2017 10:08 - CONCLUSION: Persistent left basilar density with elevation left hemidiaphragm. Miguel Ribera MD Abdomen X-Ray 11/07/17 0000 Signed Impressions: Service Date/Time: October 15:36 - CONCLUSION: Nasogastric tube has its tip in the proximal stomach. Sabas Hook MD Lower Extremity Ultrasound 11/06/17 0000 Signed Impressions: Service Date/Time: Monday, November 06, 2017 10:42 - CONCLUSION: Non- occlusive thrombus within the midportion of the right superficial femoral vein. Sabas Hook MD CT Angiography 11/05/17 1456 Signed Impressions: Service Date/Time: Sunday, November 05, 2017 16:10 - CONCLUSION: 1. Extensive pulmonary emboli involving the right main, upper and lower lobe pulmonary arteries as well as the left upper lobe pulmonary artery. 2. Elevation of the left hemidiaphragm. 3. Posterior bibasilar atelectasis and/or infiltrates. 4. Degenerative changes throughout the thoracic spine. Sabas Hook MD Objective Remarks GENERAL: Alert, NAD. NG tube in place. SKIN: Warm and dry. HEAD: Normocephalic. EYES: No scleral icterus. No injection or drainage. NECK: Supple, trachea midline. No JVD or lymphadenopathy. CARDIOVASCULAR: Regular rate and rhythm without murmurs, gallops, or rubs. RESPIRATORY: Breath sounds equal bilaterally. No accessory muscle use. GASTROINTESTINAL: Abdomen soft, non-tender, nondistended. MUSCULOSKELETAL: No cyanosis, or edema. BACK: Nontender without obvious deformity. No CVA tenderness. Procedures Echocardiogram 11/07/2017 The left ventricular systolic function is hyperdynamic with an estimated ejection fraction in the range of 65- 70%. Normal left ventricular size. Wall thickness is normal. There is mild tricuspid valve regurgitation. The estimated pulmonary arterial pressure is 44.1 mmHg. A/P Problem List: (1) Metabolic encephalopathy ICD Code: G93.41 - Metabolic encephalopathy (2) Pulmonary embolism ICD Code: I26.99 - Other pulmonary embolism without acute cor pulmonale Status: Acute Assessment and Plan 77-year-old man with Respiratory failure Continue with oxygen keep sats >92% Bronchodilators, Chest x-ray this a.m. to rule out pulmonary infiltrate November 12, 2017 Pulmonary embolism CTA + PE Doppler US LE: Non-occlusive thrombus within the midportion of the right superficial femoral vein. Currently on Lovenox subcu 70 mg every 12 hours Hypertension Monitor HR and BP keep MAP>65mmHg On Lopressor 25mg Q12 Echo showed EF 65-70%, normal RV size and function Diabetes mellitus-Labile blood glucose s/p insulin drip November 12, 2017 Increased Levemir HS to 15 units and continue medium ISS Seizure disorder Stable on Keppra IV Dementia Continue Aricept 2.5mg daily and Namenda 10mg daily UTI Possible pneumonia Has received IV Zosyn since 11/06/2017. Will d/c abx and observe patient. strep pneumonia and Legionella urinary Ag negative Full code. Lovenox. Problem Qualifiers (1) Pulmonary embolism: Qualified Codes: I26.99 - Other pulmonary embolism without acute cor pulmonale Reji Monique DO Nov 15, 2017 08:23
[2017-11-15] MEDS: MEMANTINE HCL 10 MG TAB PO SCH (09:00)
[2017-11-15] MEDS: TOLTERODINE TARTRATE 4 MG CAP LA PO SCH (09:00)
[2017-11-15] MEDS: levETIRAcetam INJ 100 ML IV SCH ×2 (09:00→19:59)
[2017-11-15] MEDS: MULTIVITAMINS/MINERALS THERAPEUTIC TAB PO SCH (09:00)
[2017-11-15] MEDS: METOPROLOL TARTRATE 25 MG TAB PO SCH ×2 (09:00→19:58)
[2017-11-15] MEDS: SENNOSIDES SYRUP 8.8 MG/5 ML CUP PO SCH (09:00)
[2017-11-15] MEDS: LACTULOSE SYRUP 20 GM/30 ML CUP PO SCH ×3 (09:00→17:22)
[2017-11-15] MEDS: DONEPEZIL HCL 5 MG TAB PO SCH (09:00)
[2017-11-15] MEDS: MEDIUM DOSE INSULIN NOVOLOG SUPPLEMENTAL SCALE SQ SCH ×4 (09:50→19:58)
[2017-11-15] MEDS: ENOXAPARIN SODIUM 80 MG/0.8 ML SYRINGE SQ SCH ×2 (13:09→22:20)
--- NOTE | 2017-11-15 13:25 | PD.CARD.PN ---
Subjective Subjective Remarks No events overnight Telemetry sinus tachycardia/sinus rhythm Objective Medications Current Medications Medications (Trade) Dose Ordered Sig/Rylie Route Start Time Stop Time Status Last Admin (NS Flush) 2 ml UNSCH PRN IVF 11/05/17 13:30 Miscellaneous Information Patient in critical care unit? Ass... [id number] .XX 11/06/17 02:00 11/06/17 02:00 Levetriacetam 100 ml @ 400 mls/hr Q12HR IV 11/06/17 09:00 11/15/17 09:00 (Tylenol) 325 mg Q4H PRN PO 11/06/17 03:30 11/10/17 12:23 (Dulcolax Supp) 10 mg DAILY PRN RECTAL 11/06/17 03:30 (Aricept) 2.5 mg DAILY PO 11/06/17 09:00 11/15/17 09:00 (Namenda) 10 mg DAILY PO 11/06/17 09:00 11/15/17 09:00 (Theragran M Tab) 1 tab DAILY PO 11/06/17 09:00 11/15/17 09:00 (Detrol La) 4 mg DAILY PO 11/06/17 09:00 11/15/17 09:00 (Pravachol) 80 mg HS PO 11/06/17 21:00 11/14/17 20:25 Piperacillin Sod/ Tazobactam Sod 100 ml @ 200 mls/hr Q6H IV 11/06/17 10:00 11/15/17 09:43 (Duoneb Neb) 1 ampule Q2HR NEB PRN NEB 11/06/17 09:15 (Lopressor) 25 mg Q12HR PO 11/06/17 10:00 11/15/17 09:00 (Pepcid) 20 mg Q12H PO 11/07/17 20:00 11/15/17 08:00 Potassium Chloride 100 ml @ 50 mls/hr Q2H PRN IV 11/07/17 14:15 Potassium Chloride 100 ml @ 50 mls/hr Q2H PRN IV 11/07/17 14:15 (K-Lyte Cl Eff) 50 meq UNSCH PRN PO 11/07/17 14:15 11/07/17 16:50 Potassium Chloride 100 ml @ 25 mls/hr UNSCH PRN IV 11/07/17 14:15 Potassium Chloride 100 ml @ 50 mls/hr Q2H PRN IV 11/07/17 14:15 Magnesium Sulfate 4 gm/Sodium Chloride 100 ml @ 50 mls/hr UNSCH PRN IV 11/07/17 14:15 (Mag-Ox) 800 mg UNSCH PRN PO 11/07/17 14:15 Magnesium Sulfate 2 gm/Sodium Chloride 100 ml @ 50 mls/hr UNSCH PRN IV 11/07/17 14:15 (K-Phos) 2,000 mg Q4H PRN PO 11/07/17 14:15 Sodium Phosphate 30 mmol/Sodium Chloride 250 ml @ 42 mls/hr UNSCH PRN IV 11/07/17 14:15 (K-Phos) 2,000 mg UNSCH PRN PO/TUBE 11/07/17 14:15 Potassium Phosphate 30 mmol/ Sodium Chloride 260 ml @ 42 mls/hr UNSCH PRN IV 11/07/17 14:15 (Senna Liq) 8.8 mg DAILY PO 11/07/17 17:00 11/10/17 09:10 (Colace) 100 mg Q12H PO 11/07/17 18:00 11/14/17 06:19 (Lactulose Liq) 30 ml TID PO 11/07/17 18:00 11/13/17 17:47 (Lovenox Inj) 70 mg Q12H SQ 11/11/17 11:00 11/15/17 13:09 (D50w (Vial) Inj) 50 ml UNSCH PRN IV PUSH 11/12/17 18:45 (Glucagon Inj) 1 mg UNSCH PRN OTHER 11/12/17 18:45 (NovoLOG SUPPLEMENTAL SCALE) 1 ACHS SLIDING SCALE SQ 11/12/17 21:00 11/15/17 13:10 (Levemir Inj) 15 units HS SQ 11/13/17 21:00 11/14/17 20:26 Sodium Chloride 1,000 ml @ 125 mls/hr Q8H IV 11/14/17 14:15 11/15/17 13:10 Vital Signs / I&O Vital Signs Date Time Temp Pulse Resp B/P (MAP) Pulse Ox O2 Delivery O2 Flow Rate FiO2 11/15/17 11:00 92 11/15/17 10:30 95 11/15/17 10:00 91 11/15/17 09:00 90 11/15/17 08:00 101 11/15/17 08:00 97.6 95 13 119/61 (80) 99 11/15/17 08:00 99 Room Air 11/15/17 06:00 99 11/15/17 04:00 100 11/15/17 04:00 98.9 100 13 99 11/15/17 02:00 94 11/15/17 00:00 98.6 101 15 147/68 (94) 100 11/15/17 00:00 101 11/14/17 22:00 103 11/14/17 20:25 98 11/14/17 20:00 108 11/14/17 20:00 98.5 108 14 108/63 (78) 97 11/14/17 19:00 100 Room Air 11/14/17 18:00 104 11/14/17 16:00 98.8 105 15 116/68 (84) 99 11/14/17 16:00 105 11/14/17 14:00 122 I/O 11/14/17 11/14/17 11/14/17 11/15/17 11/15/17 11/15/17 07:00 15:00 23:00 07:00 15:00 23:00 Intake Total 638 ml 200 ml 2250 ml 648 ml Output Total 550 ml Balance 88 ml 200 ml 2250 ml 648 ml IV Total 100 ml 200 ml 1725 ml 100 ml Tube Feeding 478 ml 465 ml 488 ml Other 60 ml 60 ml 60 ml Output Urine Total 550 ml # Voids 6 5 # Bowel Movements 2 3 4 Physical Exam GENERAL: NAD SKIN: Warm and dry. HEAD: Atraumatic. Normocephalic. EYES: Pupils equal and round. No scleral icterus. No injection or drainage. ENT: No nasal bleeding or discharge. Mucous membranes pink and moist. NECK: Trachea midline. No JVD. CARDIOVASCULAR: Regular rate and rhythm. RESPIRATORY: Decreased breath sounds bilaterally GASTROINTESTINAL: Abdomen soft, non-tender, nondistended. Hepatic and splenic margins not palpable. MUSCULOSKELETAL: Extremities without clubbing, cyanosis, or edema. No obvious deformities. NEUROLOGICAL: Awake and alert. No obvious cranial nerve deficits. PSYCHIATRIC: Appropriate mood and affect; insight and judgment normal. Laboratory Laboratory Tests Test 11/14/17 15:38 Potassium Level 4.2 MEQ/L Assessment and Plan Problem List: (1) Sinus tachycardia ICD Codes: R00.0 - Tachycardia, unspecified (2) Failure to thrive in adult ICD Codes: R62.7 - Adult failure to thrive (3) Dementia ICD Codes: F03.90 - Unspecified dementia without behavioral disturbance (4) Seizure disorder ICD Codes: G40.909 - Epilepsy, unspecified, not intractable, without status epilepticus (5) Pulmonary embolism ICD Codes: I26.99 - Other pulmonary embolism without acute cor pulmonale Status: Acute (6) CVA (cerebral vascular accident) ICD Codes: I63.9 - Cerebral infarction, unspecified Assessment and Plan 1) Sinus tachycardia No noted Afib Physiologic with underlying illness/pulmonary embolism 2) No further cardiovascular workup 3) Will see PRN, call with questions Problem Qualifiers (1) Pulmonary embolism: Qualified Codes: I26.99 - Other pulmonary embolism without acute cor pulmonale Balta Nelson DO Nov 15, 2017 13:25
--- NOTE | 2017-11-15 16:32 | HHI.PR ---
Subjective Remarks Follow up for resp failure, PE. Patient makes eye contacts but no meaningful communications. NG tube in place. Heart rate is better today. Objective Vitals Vital Signs Date Time Temp Pulse Resp B/P (MAP) Pulse Ox O2 Delivery O2 Flow Rate FiO2 11/15/17 14:30 99 11/15/17 14:00 97 11/15/17 13:00 97 11/15/17 12:00 99 11/15/17 12:00 99.2 99 13 134/67 (89) 100 11/15/17 11:00 92 11/15/17 10:30 95 11/15/17 10:00 91 11/15/17 09:00 90 11/15/17 08:00 101 11/15/17 08:00 97.6 95 13 119/61 (80) 99 11/15/17 08:00 99 Room Air 11/15/17 06:00 99 11/15/17 04:00 100 11/15/17 04:00 98.9 100 13 99 11/15/17 02:00 94 11/15/17 00:00 98.6 101 15 147/68 (94) 100 11/15/17 00:00 101 11/14/17 22:00 103 11/14/17 20:25 98 11/14/17 20:00 108 11/14/17 20:00 98.5 108 14 108/63 (78) 97 11/14/17 19:00 100 Room Air 11/14/17 18:00 104 I/O 11/14/17 11/14/17 11/14/17 11/15/17 11/15/17 11/15/17 06:59 14:59 22:59 06:59 14:59 22:59 Intake Total 638 ml 200 ml 2250 ml 648 ml Output Total 550 ml Balance 88 ml 200 ml 2250 ml 648 ml IV Total 100 ml 200 ml 1725 ml 100 ml Tube Feeding 478 ml 465 ml 488 ml Other 60 ml 60 ml 60 ml Output Urine Total 550 ml # Voids 6 5 # Bowel Movements 2 3 4 Result Diagram: 11/14/17 0429 11/14/17 1538 Objective Remarks GENERAL: Alert, NAD. NG tube in place. SKIN: Warm and dry. HEAD: Normocephalic. EYES: No scleral icterus. No injection or drainage. NECK: Supple, trachea midline. No JVD or lymphadenopathy. CARDIOVASCULAR: Regular rate and rhythm without murmurs, gallops, or rubs. RESPIRATORY: Breath sounds equal bilaterally. No accessory muscle use. GASTROINTESTINAL: Abdomen soft, non-tender, nondistended. MUSCULOSKELETAL: No cyanosis, or edema. BACK: Nontender without obvious deformity. No CVA tenderness. Procedures Echocardiogram 11/07/2017 The left ventricular systolic function is hyperdynamic with an estimated ejection fraction in the range of 65- 70%. Normal left ventricular size. Wall thickness is normal. There is mild tricuspid valve regurgitation. The estimated pulmonary arterial pressure is 44.1 mmHg. A/P Problem List: (1) Metabolic encephalopathy ICD Code: G93.41 - Metabolic encephalopathy (2) Pulmonary embolism ICD Code: I26.99 - Other pulmonary embolism without acute cor pulmonale Status: Acute Assessment and Plan 77-year-old man with Respiratory failure Continue with oxygen keep sats >92% Bronchodilators, Chest x-ray this a.m. to rule out pulmonary infiltrate November 12, 2017 Pulmonary embolism CTA + PE Doppler US LE: Non-occlusive thrombus within the midportion of the right superficial femoral vein. Currently on Lovenox subcu 70 mg every 12 hours Hypertension Tachycardia Tachycardia and BP improved after fluid. Will reduce IV fluid from 125 to 50cc.hour. On Lopressor 25mg Q12 Echo showed EF 65-70%, normal RV size and function Diabetes mellitus-Labile blood glucose s/p insulin drip November 12, 2017 Increased Levemir HS to 15 units and continue medium ISS Seizure disorder Stable on Keppra IV Dementia Continue Aricept 2.5mg daily and Namenda 10mg daily UTI Possible pneumonia Has received IV Zosyn since 11/06/2017. Will d/c abx and observe patient. strep pneumonia and Legionella urinary Ag negative Nutrition: Will discuss with family to see if they will consider PEG Tube placement. Full code. Lovenox. Problem Qualifiers (1) Pulmonary embolism: Qualified Codes: I26.99 - Other pulmonary embolism without acute cor pulmonale Reji Monique DO Nov 15, 2017 16:32
[2017-11-15] MEDS: INSULIN DETEMIR 100 UNITS/ML VIAL SQ SCH (19:58)
[2017-11-15] MEDS: PRAVASTATIN SOD 80 MG TAB PO SCH (19:58)
[2017-11-16] VITALS (12 sets, daily range): BP systolic 114–140; BP diastolic 62–74; PULSE 82–99; RESP 13–19; TEMP 98.4–99.1; O2SAT 97–100
[2017-11-16] MEDS: DOCUSATE SODIUM 100 MG CAP PO SCH ×2 (06:00→17:27)
[2017-11-16] MEDS: MEDIUM DOSE INSULIN NOVOLOG SUPPLEMENTAL SCALE SQ SCH ×4 (08:00→20:11)
[2017-11-16] MEDS: LACTULOSE SYRUP 20 GM/30 ML CUP PO SCH ×3 (08:34→17:27)
[2017-11-16] MEDS: MEMANTINE HCL 10 MG TAB PO SCH (08:34)
[2017-11-16] MEDS: DONEPEZIL HCL 5 MG TAB PO SCH (08:34)
[2017-11-16] MEDS: MULTIVITAMINS/MINERALS THERAPEUTIC TAB PO SCH (08:34)
[2017-11-16] MEDS: SODIUM CHLOR 0.9% 1000 ML INJ 1,000 ML IV SCH (08:34)
[2017-11-16] MEDS: METOPROLOL TARTRATE 25 MG TAB PO SCH ×2 (08:34→20:10)
[2017-11-16] MEDS: FAMOTIDINE 20 MG TAB PO SCH ×2 (08:34→20:10)
[2017-11-16] MEDS: TOLTERODINE TARTRATE 4 MG CAP LA PO SCH (08:34)
[2017-11-16] MEDS: SENNOSIDES SYRUP 8.8 MG/5 ML CUP PO SCH (08:34)
[2017-11-16] MEDS: levETIRAcetam INJ 100 ML IV SCH ×2 (08:35→20:11)
[2017-11-16] MEDS: ENOXAPARIN SODIUM 80 MG/0.8 ML SYRINGE SQ SCH (10:36)
--- NOTE | 2017-11-16 13:23 | HHI.PR ---
Subjective Remarks Follow up for resp failure, PE. Patient is more alert and pleasant today. He smiles but does not contact any meaningful conversation. Per nursing staff, he tolerated diet well. He is off restraints. NG tube was discontinued today. Objective Vitals Vital Signs Date Time Temp Pulse Resp B/P (MAP) Pulse Ox O2 Delivery O2 Flow Rate FiO2 11/16/17 06:00 92 11/16/17 04:00 98.4 93 14 128/67 (87) 100 11/16/17 04:00 93 11/16/17 02:00 82 11/16/17 00:29 98 11/16/17 00:00 83 11/16/17 00:00 98.8 83 13 122/62 (82) 100 11/15/17 22:00 91 11/15/17 20:00 98.6 97 15 137/70 (92) 100 11/15/17 20:00 97 11/15/17 19:00 99 Room Air 11/15/17 19:00 98 Room Air 11/15/17 18:00 94 11/15/17 17:00 100 11/15/17 16:00 98.7 93 12 122/65 (84) 95 11/15/17 16:00 93 11/15/17 15:00 97 11/15/17 14:30 99 11/15/17 14:00 97 I/O 11/15/17 11/15/17 11/15/17 11/16/17 11/16/17 11/16/17 07:00 15:00 23:00 07:00 15:00 23:00 Intake Total 648 ml 200 ml 1295 ml 45 ml 800 ml Output Total 800 ml 1050 ml Balance 648 ml 200 ml 495 ml -1005 ml 800 ml IV Total 100 ml 200 ml 500 ml 800 ml Tube Feeding 488 ml 675 ml Other 60 ml 120 ml 45 ml Output Urine Total 800 ml 1050 ml # Voids 5 # Bowel Movements 4 1 1 Result Diagram: 11/14/17 0429 11/14/17 1538 Imaging Last Impressions Chest X-Ray 11/12/17 0000 Signed Impressions: Service Date/Time: Sunday, November 12, 2017 10:08 - CONCLUSION: Persistent left basilar density with elevation left hemidiaphragm. Miguel Ribera MD Abdomen X-Ray 11/07/17 0000 Signed Impressions: Service Date/Time: October 15:36 - CONCLUSION: Nasogastric tube has its tip in the proximal stomach. Sabas Hook MD Lower Extremity Ultrasound 11/06/17 0000 Signed Impressions: Service Date/Time: Monday, November 06, 2017 10:42 - CONCLUSION: Non- occlusive thrombus within the midportion of the right superficial femoral vein. Sabas Hook MD CT Angiography 11/05/17 1456 Signed Impressions: Service Date/Time: Sunday, November 05, 2017 16:10 - CONCLUSION: 1. Extensive pulmonary emboli involving the right main, upper and lower lobe pulmonary arteries as well as the left upper lobe pulmonary artery. 2. Elevation of the left hemidiaphragm. 3. Posterior bibasilar atelectasis and/or infiltrates. 4. Degenerative changes throughout the thoracic spine. Sabas Hook MD Objective Remarks GENERAL: Alert, NAD. SKIN: Warm and dry. HEAD: Normocephalic. EYES: No scleral icterus. No injection or drainage. NECK: Supple, trachea midline. No JVD or lymphadenopathy. CARDIOVASCULAR: Regular rate and rhythm without murmurs, gallops, or rubs. RESPIRATORY: Breath sounds equal bilaterally. No accessory muscle use. GASTROINTESTINAL: Abdomen soft, non-tender, nondistended. MUSCULOSKELETAL: No cyanosis, or edema. BACK: Nontender without obvious deformity. No CVA tenderness. Procedures Echocardiogram 11/07/2017 The left ventricular systolic function is hyperdynamic with an estimated ejection fraction in the range of 65- 70%. Normal left ventricular size. Wall thickness is normal. There is mild tricuspid valve regurgitation. The estimated pulmonary arterial pressure is 44.1 mmHg. A/P Problem List: (1) Metabolic encephalopathy ICD Code: G93.41 - Metabolic encephalopathy (2) Pulmonary embolism ICD Code: I26.99 - Other pulmonary embolism without acute cor pulmonale Status: Acute Assessment and Plan Mr. Kurtz is a 77-year-old -[place] male who was admitted on 2017 due to shortness of breath. CT angiogram performed upon admission shows extensive pulmonary embolism involving the right main, upper and lower lobe pulmonary arteries as well as left upper lobe pulmonary artery. He was started on heparin drip and admitted to ICU. Hematology was consulted who recommended Lovenox. Patient was given nutrition through NG tube. On 11/16/2017 NG tube was discontinued and patient improved with regards to oral feeding. Respiratory failure - Continue with oxygen keep sats >92% - Bronchodilators, Pulmonary embolism - CT pulmonary angiogram --> extensive pulmonary emboli involving the right main, upper and lower lobe pulmonary arteries as well as the left upper lobe pulmonary artery. - Doppler US LE: Non-occlusive thrombus within the midportion of the right superficial femoral vein. - Currently on Lovenox subcu 70 mg every 12 hours. - Now that patient is taking oral medications, we can switch him to apixaban 5 mg twice daily. Hypertension Tachycardia Tachycardia and BP improved after fluid. Will d/c IV fluid. On Lopressor 25mg Q12 Echo showed EF 65-70%, normal RV size and function Diabetes mellitus-Labile blood glucose s/p insulin drip November 12, 2017 Increased Levemir HS to 15 units and continue medium ISS Goal blood glucose 140-180. Seizure disorder Stable on Keppra IV Dementia Continue Aricept 2.5mg daily and Namenda 10mg daily UTI Possible pneumonia Has received IV Zosyn since 11/06/2017. Antibiotics discontinued. Patient currently is afebrile. strep pneumonia and Legionella urinary Ag negative Nutrition -patient is tolerating food by mouth. Can be transferred to the floor Full code. Lovenox, will switch to apixaban 5 mg twice daily. Problem Qualifiers (1) Pulmonary embolism: Qualified Codes: I26.99 - Other pulmonary embolism without acute cor pulmonale Reji Monique DO Nov 16, 2017 1:22 pm
[2017-11-16] MEDS: APIXABAN 5 MG TABLET PO SCH (20:10)
[2017-11-16] MEDS: PRAVASTATIN SOD 80 MG TAB PO SCH (20:10)
[2017-11-16] MEDS: INSULIN DETEMIR 100 UNITS/ML VIAL SQ SCH (20:11)
[2017-11-17] VITALS (7 sets, daily range): BP systolic 108–141; BP diastolic 69–82; PULSE 89–99; RESP 4–17; TEMP 98.3–99.5; O2SAT 95–100
[2017-11-17 05:52] LABS: HEMATOCRIT 37.3 % (39.0-51.0); HEMOGLOBIN 12.5 GM/DL (13.0-17.0); MEAN CELL VOLUME 86.1 FL (80.0-100.0); MEAN CORPUSCULAR HEMOGLOBIN 28.9 PG (27.0-34.0); MEAN CORPUSCULAR HGB CONC 33.5 % (32.0-36.0); MEAN PLATELET VOLUME 8.2 FL (7.0-11.0); PLATELET COUNT 452 TH/MM3 (150-450); RED BLOOD COUNT 4.33 MIL/MM3 (4.50-5.90); RED CELL DISTRIBUTION WIDTH 15.5 % (11.6-17.2); WHITE BLOOD COUNT 13.9 TH/MM3 (4.0-11.0)
[2017-11-17] MEDS: DOCUSATE SODIUM 100 MG CAP PO SCH ×2 (06:00→17:52)
[2017-11-17] MEDS: MEDIUM DOSE INSULIN NOVOLOG SUPPLEMENTAL SCALE SQ SCH ×4 (08:00→20:59)
[2017-11-17] MEDS: DONEPEZIL HCL 5 MG TAB PO SCH (08:06)
[2017-11-17] MEDS: APIXABAN 5 MG TABLET PO SCH ×2 (08:06→20:59)
[2017-11-17] MEDS: MEMANTINE HCL 10 MG TAB PO SCH (08:06)
[2017-11-17] MEDS: MULTIVITAMINS/MINERALS THERAPEUTIC TAB PO SCH (08:06)
[2017-11-17] MEDS: TOLTERODINE TARTRATE 4 MG CAP LA PO SCH (08:07)
[2017-11-17] MEDS: levETIRAcetam INJ 100 ML IV SCH ×2 (08:07→21:00)
[2017-11-17] MEDS: FAMOTIDINE 20 MG TAB PO SCH ×2 (08:07→20:59)
[2017-11-17] MEDS: METOPROLOL TARTRATE 25 MG TAB PO SCH ×2 (08:07→20:59)
[2017-11-17] MEDS: SENNOSIDES SYRUP 8.8 MG/5 ML CUP PO SCH (09:00)
[2017-11-17] MEDS: LACTULOSE SYRUP 20 GM/30 ML CUP PO SCH ×3 (09:00→17:52)
--- NOTE | 2017-11-17 14:44 | HHI.PR ---
Subjective Remarks Follow up for resp failure, PE. Patient smiles and makes eye contact. However he does not communicate. Tolerating food with assistance. Afebrile. Objective Vitals Vital Signs Date Time Temp Pulse Resp B/P (MAP) Pulse Ox O2 Delivery O2 Flow Rate FiO2 11/17/17 12:00 97 11/17/17 12:00 98.6 97 17 124/82 (96) 95 11/17/17 08:00 98.4 98 14 119/72 (88) 97 11/17/17 08:00 98 11/17/17 07:00 98 Room Air 11/17/17 04:00 96 11/17/17 04:00 98.9 96 17 141/76 (97) 100 11/17/17 00:00 89 11/17/17 00:00 99.5 89 17 140/72 (94) 100 11/16/17 20:00 99.1 92 17 140/74 (96) 99 11/16/17 20:00 92 11/16/17 19:00 98 Room Air 11/16/17 18:00 99 16 98 11/16/17 16:00 96 14 114/66 (82) 97 11/16/17 16:00 96 I/O 11/16/17 11/16/17 11/16/17 11/17/17 11/17/17 11/17/17 07:00 15:00 23:00 07:00 15:00 23:00 Intake Total 45 ml 942 ml 550 ml Output Total 1050 ml 5 ml Balance -1005 ml 942 ml 545 ml Intake Oral 450 ml IV Total 942 ml 100 ml Other 45 ml Output Urine Total 1050 ml 5 ml # Voids 6 # Bowel Movements 1 3 1 Result Diagram: 11/17/17 0435 11/14/17 1538 Objective Remarks GENERAL: Alert, NAD. SKIN: Warm and dry. HEAD: Normocephalic. EYES: No scleral icterus. No injection or drainage. NECK: Supple, trachea midline. No JVD or lymphadenopathy. CARDIOVASCULAR: Regular rate and rhythm without murmurs, gallops, or rubs. RESPIRATORY: Breath sounds equal bilaterally. No accessory muscle use. GASTROINTESTINAL: Abdomen soft, non-tender, nondistended. MUSCULOSKELETAL: No cyanosis, or edema. BACK: Nontender without obvious deformity. No CVA tenderness. Procedures Echocardiogram 11/07/2017 The left ventricular systolic function is hyperdynamic with an estimated ejection fraction in the range of 65- 70%. Normal left ventricular size. Wall thickness is normal. There is mild tricuspid valve regurgitation. The estimated pulmonary arterial pressure is 44.1 mmHg. A/P Problem List: (1) Metabolic encephalopathy ICD Code: G93.41 - Metabolic encephalopathy (2) Pulmonary embolism ICD Code: I26.99 - Other pulmonary embolism without acute cor pulmonale Status: Acute Assessment and Plan Mr. Kurtz is a 77-year-old -Burm[place] male who was admitted on 2017 due to shortness of breath. CT angiogram performed upon admission shows extensive pulmonary embolism involving the right main, upper and lower lobe pulmonary arteries as well as left upper lobe pulmonary artery. He was started on heparin drip and admitted to ICU. Hematology was consulted who recommended Lovenox. Patient was given nutrition through NG tube. On 11/16/2017 NG tube was discontinued and patient improved with regards to oral feeding. Respiratory failure - Continue with oxygen keep sats >92% - Bronchodilators, Pulmonary embolism - CT pulmonary angiogram --> extensive pulmonary emboli involving the right main, upper and lower lobe pulmonary arteries as well as the left upper lobe pulmonary artery. - Doppler US LE: Non-occlusive thrombus within the midportion of the right superficial femoral vein. - Currently on Lovenox subcu 70 mg every 12 hours. - Now that patient is taking oral medications, we can switch him to apixaban 5 mg twice daily. Hypertension Tachycardia Tachycardia and BP improved after fluid. Will d/c IV fluid. On Lopressor 25mg Q12 Echo showed EF 65-70%, normal RV size and function Diabetes mellitus-Labile blood glucose s/p insulin drip November 12, 2017 Increased Levemir HS to 15 units and continue medium ISS Goal blood glucose 140-180. Seizure disorder Stable on Keppra IV Dementia Continue Aricept 2.5mg daily and Namenda 10mg daily UTI Possible pneumonia Has received IV Zosyn since 11/06/2017. Antibiotics discontinued. Patient currently is afebrile. strep pneumonia and Legionella urinary Ag negative Nutrition -patient is tolerating food by mouth. Can be transferred to the floor Full code. Apixaban 5 mg twice a day. Discharge plan: Will discuss with CM regarding discharge options including SNF. Problem Qualifiers (1) Pulmonary embolism: Qualified Codes: I26.99 - Other pulmonary embolism without acute cor pulmonale Reji Monique DO Nov 17, 2017 2:44 pm
[2017-11-17] MEDS: PRAVASTATIN SOD 80 MG TAB PO SCH (20:59)
[2017-11-17] MEDS: INSULIN DETEMIR 100 UNITS/ML VIAL SQ SCH (20:59)
[2017-11-18] VITALS (7 sets, daily range): BP systolic 102–126; BP diastolic 67–80; PULSE 87–100; RESP 4–18; TEMP 97.3–98.6; O2SAT 94–99
[2017-11-18] MEDS: DOCUSATE SODIUM 100 MG CAP PO SCH ×2 (05:34→08:25)
[2017-11-18] MEDS: MEDIUM DOSE INSULIN NOVOLOG SUPPLEMENTAL SCALE SQ SCH ×4 (08:00→21:38)
[2017-11-18] MEDS: FAMOTIDINE 20 MG TAB PO SCH ×2 (08:25→21:40)
[2017-11-18] MEDS: MEMANTINE HCL 10 MG TAB PO SCH (08:25)
[2017-11-18] MEDS: DONEPEZIL HCL 5 MG TAB PO SCH (08:25)
[2017-11-18] MEDS: MULTIVITAMINS/MINERALS THERAPEUTIC TAB PO SCH (08:25)
[2017-11-18] MEDS: TOLTERODINE TARTRATE 4 MG CAP LA PO SCH (08:25)
[2017-11-18] MEDS: APIXABAN 5 MG TABLET PO SCH ×2 (08:26→21:39)
[2017-11-18] MEDS: SENNOSIDES SYRUP 8.8 MG/5 ML CUP PO SCH (08:26)
[2017-11-18] MEDS: LACTULOSE SYRUP 20 GM/30 ML CUP PO SCH ×3 (08:26→17:10)
[2017-11-18] MEDS: METOPROLOL TARTRATE 25 MG TAB PO SCH ×2 (08:26→21:00)
[2017-11-18] MEDS: levETIRAcetam INJ 100 ML IV SCH (08:27)
--- NOTE | 2017-11-18 10:36 | HHI.PR ---
Subjective Remarks Follow up for resp failure, PE. Patient is currently doing well. He smiles but no meaningful communications. His son is at bedside. Son expresses concern regarding SNF. He would prefer to take his dad home with home health. However he would like to defer the decision to his mother. Objective Vitals Vital Signs Date Time Temp Pulse Resp B/P (MAP) Pulse Ox O2 Delivery O2 Flow Rate FiO2 11/18/17 09:49 97 11/18/17 08:00 98.5 94 18 109/68 (82) 94 11/18/17 08:00 92 11/18/17 07:00 97 Room Air 11/18/17 04:00 98.4 92 4 112/71 (85) 97 11/18/17 04:00 92 11/18/17 00:00 98.6 87 7 107/75 (86) 97 11/18/17 00:00 87 11/17/17 20:58 98 21 11/17/17 20:00 98.3 99 8 108/69 (82) 97 11/17/17 20:00 99 11/17/17 19:00 96 Room Air 11/17/17 16:00 99.0 97 4 114/71 (85) 97 11/17/17 16:00 97 11/17/17 12:00 97 11/17/17 12:00 98.6 97 17 124/82 (96) 95 I/O 11/17/17 11/17/17 11/17/17 11/18/17 11/18/17 11/18/17 07:00 15:00 23:00 07:00 15:00 23:00 Intake Total 100 ml Balance 100 ml IV Total 100 ml # Voids 6 4 5 # Bowel Movements 1 0 0 Result Diagram: 11/17/17 0435 11/14/17 1538 Imaging Last Impressions Chest X-Ray 11/12/17 0000 Signed Impressions: Service Date/Time: Sunday, November 12, 2017 10:08 - CONCLUSION: Persistent left basilar density with elevation left hemidiaphragm. Miguel Ribera MD Abdomen X-Ray 11/07/17 0000 Signed Impressions: Service Date/Time: October 15:36 - CONCLUSION: Nasogastric tube has its tip in the proximal stomach. Sabas Hook MD Lower Extremity Ultrasound 11/06/17 0000 Signed Impressions: Service Date/Time: Monday, November 06, 2017 10:42 - CONCLUSION: Non- occlusive thrombus within the midportion of the right superficial femoral vein. Sabas Hook MD CT Angiography 11/05/17 1456 Signed Impressions: Service Date/Time: Sunday, November 05, 2017 16:10 - CONCLUSION: 1. Extensive pulmonary emboli involving the right main, upper and lower lobe pulmonary arteries as well as the left upper lobe pulmonary artery. 2. Elevation of the left hemidiaphragm. 3. Posterior bibasilar atelectasis and/or infiltrates. 4. Degenerative changes throughout the thoracic spine. Sabas Hook MD Objective Remarks GENERAL: Alert, NAD. SKIN: Warm and dry. HEAD: Normocephalic. EYES: No scleral icterus. No injection or drainage. NECK: Supple, trachea midline. No JVD or lymphadenopathy. CARDIOVASCULAR: Regular rate and rhythm without murmurs, gallops, or rubs. RESPIRATORY: Breath sounds equal bilaterally. No accessory muscle use. GASTROINTESTINAL: Abdomen soft, non-tender, nondistended. MUSCULOSKELETAL: No cyanosis, or edema. BACK: Nontender without obvious deformity. No CVA tenderness. Procedures Echocardiogram 11/07/2017 The left ventricular systolic function is hyperdynamic with an estimated ejection fraction in the range of 65- 70%. Normal left ventricular size. Wall thickness is normal. There is mild tricuspid valve regurgitation. The estimated pulmonary arterial pressure is 44.1 mmHg. A/P Problem List: (1) Metabolic encephalopathy ICD Code: G93.41 - Metabolic encephalopathy (2) Pulmonary embolism ICD Code: I26.99 - Other pulmonary embolism without acute cor pulmonale Status: Acute Assessment and Plan Mr. Kurtz is a 77-year-old -[place]ovenian male who was admitted on 2017 due to shortness of breath. CT angiogram performed upon admission shows extensive pulmonary embolism involving the right main, upper and lower lobe pulmonary arteries as well as left upper lobe pulmonary artery. He was started on heparin drip and admitted to ICU. Hematology was consulted who recommended Lovenox. Patient was given nutrition through NG tube. On 11/16/2017 NG tube was discontinued and patient improved with regards to oral feeding. Respiratory failure - Continue with oxygen keep sats >92% - Bronchodilators, Pulmonary embolism - CT pulmonary angiogram --> extensive pulmonary emboli involving the right main, upper and lower lobe pulmonary arteries as well as the left upper lobe pulmonary artery. - Doppler US LE: Non-occlusive thrombus within the midportion of the right superficial femoral vein. - Currently on apixaban 5 mg twice daily. Hypertension Tachycardia Tachycardia and BP improved after fluid. On Lopressor 25mg Q12 Echo showed EF 65-70%, normal RV size and function Diabetes mellitus-Labile blood glucose s/p insulin drip November 12, 2017 Increased Levemir HS to 15 units and continue medium ISS Goal blood glucose 140-180. Seizure disorder Stable on Keppra IV, will switch to p.o. Keppra Dementia Continue Aricept 2.5mg daily and Namenda 10mg daily UTI Possible pneumonia Has received IV Zosyn since 11/06/2017. Antibiotics discontinued. Patient currently is afebrile. strep pneumonia and Legionella urinary Ag negative Nutrition -patient is tolerating food by mouth. Can be transferred to the floor Full code. Apixaban 5 mg twice a day. Discharge plan : Patient can likely go home with home health. May need a hospital bed. Problem Qualifiers (1) Pulmonary embolism: Qualified Codes: I26.99 - Other pulmonary embolism without acute cor pulmonale Reji Monique DO Nov 18, 2017 10:36 am
--- NOTE | 2017-11-18 10:40 | HHI.FF ---
Face to Face Verification Diagnosis: (1) Dementia (2) Seizure disorder (3) Pulmonary embolism Physical Therapy Order: Evaluate and Treat, Improve ambulation, Strength and gait training Occupational Therapy Order: Evaluate and Treat, Improve ADL, Gross motor coordination, Fine motor coordination Home Health Nursing Order: Medical education Signs/symptoms of disease process Medication education-adverse effect Nursing assessment with vital signs Home Health Aide Order: To Assist In: Bathing and personal care, fundraising manager and meal prep I have seen patient Rene Kurtz on 11/18/17. My clinical findings support the need for the requested home health care services because: Ltd mobility - disease progression Deconditioned w/ increased weakness Limited ability to care for self Need for psychosocial assistance Impaired cognition/judgement High risk of falls Infection w/ risk of complications I certify that my clinical findings support that this patient is homebound because: Impaired cognitive ability/safety Unsteady gait/balance Unsafe to leave home unassisted Need for psychosocial assistance [id number]-[id number] bed/chair Unable to use public transportation Reji Monique DO Nov 18, 2017 10:40 am
[2017-11-18] MEDS ORDERED: HOSP BED2 (11:01)
[2017-11-18] MEDS ORDERED: COMMODE 3-IN-11 MIS (11:45)
[2017-11-18] MEDS ORDERED: WALKER WHEELS/F1 MIS (11:45)
[2017-11-18] MEDS ORDERED: WHEEMIS3 (11:45)
[2017-11-18] MEDS: PRAVASTATIN SOD 80 MG TAB PO SCH (21:39)
[2017-11-18] MEDS: INSULIN DETEMIR 100 UNITS/ML VIAL SQ SCH (21:39)
[2017-11-18] MEDS: levETIRAcetam 500 MG TAB PO SCH (21:41)
[2017-11-19] VITALS: BP 103/64; PULSE 101; RESP 18; TEMP 98.1; O2SAT 96
[2017-11-19] MEDS: DOCUSATE SODIUM 100 MG CAP PO SCH ×3 (06:00→22:39)
[2017-11-19 08:00] VITALS: BP 110/60; PULSE 103; RESP 16; TEMP 98.2; O2SAT 97
[2017-11-19] MEDS: MEDIUM DOSE INSULIN NOVOLOG SUPPLEMENTAL SCALE SQ SCH ×4 (08:00→21:00)
[2017-11-19] MEDS: FAMOTIDINE 20 MG TAB PO SCH ×2 (08:53→20:00)
[2017-11-19] MEDS: MEMANTINE HCL 10 MG TAB PO SCH (08:53)
[2017-11-19] MEDS: levETIRAcetam 500 MG TAB PO SCH ×2 (08:53→21:00)
[2017-11-19] MEDS: MULTIVITAMINS/MINERALS THERAPEUTIC TAB PO SCH (08:53)
[2017-11-19] MEDS: LACTULOSE SYRUP 20 GM/30 ML CUP PO SCH ×3 (08:53→18:00)
[2017-11-19] MEDS: TOLTERODINE TARTRATE 4 MG CAP LA PO SCH (08:53)
[2017-11-19] MEDS: METOPROLOL TARTRATE 25 MG TAB PO SCH ×2 (08:54→21:00)
[2017-11-19] MEDS: APIXABAN 5 MG TABLET PO SCH ×2 (08:54→21:00)
[2017-11-19] MEDS: DONEPEZIL HCL 5 MG TAB PO SCH (08:54)
[2017-11-19] MEDS: SENNOSIDES SYRUP 8.8 MG/5 ML CUP PO SCH (08:55)
[2017-11-19 12:00] VITALS: BP 107/64; PULSE 106; RESP 18; TEMP 98.3; O2SAT 98
--- NOTE | 2017-11-19 14:30 | HHI.PR ---
Subjective Remarks Follow-up pulmonary embolus, respiratory failure. The patient failed his swallow evaluation. Speech therapy has recommended n.p.o. status. Objective Vitals Vital Signs Date Time Temp Pulse Resp B/P (MAP) Pulse Ox O2 Delivery O2 Flow Rate FiO2 11/19/17 12:00 98.3 106 18 107/64 (78) 98 11/19/17 08:00 98.2 103 16 110/60 (77) 97 11/19/17 00:00 98.1 101 18 103/64 (77) 96 11/18/17 20:00 97.3 100 18 102/67 (79) 98 11/18/17 19:00 98 Room Air 11/18/17 16:00 98.1 100 18 126/80 (95) 99 11/18/17 16:00 100 I/O 11/18/17 11/18/17 11/18/17 11/19/17 11/19/17 11/19/17 07:00 15:00 23:00 07:00 15:00 23:00 Intake Total 100 ml 650 ml Balance 100 ml 650 ml Intake Oral 650 ml IV Total 100 ml # Voids 5 5 2 # Bowel Movements 0 0 1 Result Diagram: 11/17/17 0435 Imaging Last Impressions Chest X-Ray 11/12/17 0000 Signed Impressions: Service Date/Time: Sunday, November 12, 2017 10:08 - CONCLUSION: Persistent left basilar density with elevation left hemidiaphragm. Miguel Ribera MD Abdomen X-Ray 11/07/17 0000 Signed Impressions: Service Date/Time: October 15:36 - CONCLUSION: Nasogastric tube has its tip in the proximal stomach. Sabas Hook MD Lower Extremity Ultrasound 11/06/17 0000 Signed Impressions: Service Date/Time: Monday, November 06, 2017 10:42 - CONCLUSION: Non- occlusive thrombus within the midportion of the right superficial femoral vein. Sabas Hook MD CT Angiography 11/05/17 1456 Signed Impressions: Service Date/Time: Sunday, November 05, 2017 16:10 - CONCLUSION: 1. Extensive pulmonary emboli involving the right main, upper and lower lobe pulmonary arteries as well as the left upper lobe pulmonary artery. 2. Elevation of the left hemidiaphragm. 3. Posterior bibasilar atelectasis and/or infiltrates. 4. Degenerative changes throughout the thoracic spine. Sabas Hook MD Objective Remarks General: No acute distress. Heart: Regular rate and rhythm. No murmur. Lungs: Clear to auscultation bilaterally. No wheezes, rales, or rhonchi. Breathing is nonlabored. Abdomen: Soft, nontender, nondistended. Extremities: No lower extremity edema. Psych: Alert, nonverbal. Does not follow commands. Procedures None Urinary Catheter: No Vascular Central Line Catheter: No A/P Problem List: (1) Metabolic encephalopathy ICD Code: G93.41 - Metabolic encephalopathy (2) Pulmonary embolism ICD Code: I26.99 - Other pulmonary embolism without acute cor pulmonale Status: Acute Assessment and Plan 1. Acute respiratory failure: Resolved. Patient now on room air. 2. Pulmonary embolism: Continue apixaban 5 mg twice daily. 3. Hypertension: Continue Lopressor. 4. Tachycardia: Improved. Continue beta-clemente. 5. Diabetes mellitus: Continue Levemir. Monitor Accu-Cheks and cover with sliding scale insulin. 6. Seizure disorder: Continue Keppra. 7. Dementia: Continue Aricept, Namenda. 8. UTI, possible pneumonia: Completed course of antibiotics. Remains afebrile. 9. FEN: Patient failed swallow eval. N.p.o. currently. Continue IV fluids. Discharge Planning SNF versus home with home health when medically stable. Case management assisting with DME for possible discharge home including hospital bed. Problem Qualifiers (1) Pulmonary embolism: Qualified Codes: I26.99 - Other pulmonary embolism without acute cor pulmonale Guido Almazan MD Nov 19, 2017 14:30
[2017-11-19 16:00] VITALS: BP 105/59; PULSE 90; RESP 18; TEMP 97.5; O2SAT 96
[2017-11-19] MEDS: SODIUM CHLOR 0.9% 1000 ML INJ 1,000 ML IV SCH (16:42)
[2017-11-19 20:00] VITALS: BP 103/66; PULSE 101; RESP 18; TEMP 97.4; O2SAT 99
[2017-11-19] MEDS: PRAVASTATIN SOD 80 MG TAB PO SCH (21:00)
[2017-11-19] MEDS: INSULIN DETEMIR 100 UNITS/ML VIAL SQ SCH (21:00)
[2017-11-20] VITALS: BP 94/64; PULSE 100; RESP 18; TEMP 98; O2SAT 97
[2017-11-20 08:00] VITALS: BP 113/63; PULSE 103; RESP 20; TEMP 97.3; O2SAT 95
[2017-11-20] MEDS: FAMOTIDINE 20 MG TAB PO SCH ×2 (08:00→20:00)
[2017-11-20] MEDS: MEDIUM DOSE INSULIN NOVOLOG SUPPLEMENTAL SCALE SQ SCH ×4 (08:00→21:00)
[2017-11-20] MEDS: DONEPEZIL HCL 5 MG TAB PO SCH (08:09)
[2017-11-20] MEDS: TOLTERODINE TARTRATE 4 MG CAP LA PO SCH (08:09)
[2017-11-20] MEDS: MEMANTINE HCL 10 MG TAB PO SCH (08:10)
[2017-11-20] MEDS: METOPROLOL TARTRATE 25 MG TAB PO SCH ×2 (08:10→21:00)
[2017-11-20] MEDS: APIXABAN 5 MG TABLET PO SCH ×2 (08:10→21:00)
[2017-11-20] MEDS: SENNOSIDES SYRUP 8.8 MG/5 ML CUP PO SCH (08:10)
[2017-11-20] MEDS: levETIRAcetam 500 MG TAB PO SCH (08:10)
[2017-11-20] MEDS: MULTIVITAMINS/MINERALS THERAPEUTIC TAB PO SCH (08:10)
[2017-11-20] MEDS: LACTULOSE SYRUP 20 GM/30 ML CUP PO SCH ×3 (08:10→16:30)
[2017-11-20 08:43] LABS: AUTOMATED NEUTROPHIL # 7.1 TH/MM3 (1.8-7.7); BASOPHIL # 0.1 TH/MM3 (0-0.2); BASOPHIL % 0.6 % (0.0-2.0); EOSINOPHIL # 0.1 TH/MM3 (0-0.4); EOSINOPHIL % 1.4 % (0.0-4.0); HEMATOCRIT 40.1 % (39.0-51.0); HEMOGLOBIN 13.5 GM/DL (13.0-17.0); LYMPH % 21.1 % (9.0-44.0); LYMPHOCYTE # 2.2 TH/MM3 (1.0-4.8); MEAN CELL VOLUME 86.8 FL (80.0-100.0); MEAN CORPUSCULAR HEMOGLOBIN 29.1 PG (27.0-34.0); MEAN CORPUSCULAR HGB CONC 33.6 % (32.0-36.0); MEAN PLATELET VOLUME 7.5 FL (7.0-11.0); MONO % 8.5 % (0.0-8.0); MONOCYTE # 0.9 TH/MM3 (0-0.9); NEUT % 68.4 % (16.0-70.0); PLATELET COUNT 554 TH/MM3 (150-450); RED BLOOD COUNT 4.62 MIL/MM3 (4.50-5.90); RED CELL DISTRIBUTION WIDTH 15.7 % (11.6-17.2); WHITE BLOOD COUNT 10.3 TH/MM3 (4.0-11.0)
[2017-11-20 09:07] LABS: BICARBONATE 25.7 MEQ/L (21.0-32.0); CALCIUM 9.6 MG/DL (8.5-10.1); CREATININE 1.1 MG/DL (0.60-1.30)
[2017-11-20] MEDS: SODIUM CHLOR 0.9% 1000 ML INJ 1,000 ML IV SCH (10:30)
--- NOTE | 2017-11-20 11:12 | RADRPT ---
EXAM DATE/TIME: 11/20/2017 10:34 [facility] COMPARISON: CT BRAIN W/O CONTRAST, October 29, 2017, 21:58. INDICATIONS : Altered mental status. RADIATION DOSE: 56.35 CTDIvol (mGy) MEDICAL HISTORY : Dementia. Hypertension. Cerebrovascular disease. SURGICAL HISTORY : Craniotomy. ENCOUNTER: Initial ACUITY: 1 day PAIN SCALE: Non-responsive LOCATION: cranial TECHNIQUE: Multiple contiguous axial images were obtained of the head. Using automated exposure control and adjustment of the mA and/or kV according to patient size, radiation dose was kept as low as reasonably achievable to obtain optimal diagnostic quality images. DICOM format image data is av ailable electronically for review and comparison. FINDINGS: CEREBRUM: Ventriculomegaly is noted consistent with central cerebral atrophy. Focal encephalomala antoine is noted involving the left frontal lobe. Mild periventricular white matter small vessel ischemic disease. No evidence of midline shift, mass lesion, hemorrhage or acute infarction. There are stable bifrontal subacute/chronic subdural hygromas. POSTERIOR FOSSA: The cerebellum and brainstem are intact. The 4th ventricle is midline. The cer ebellopontine angle is unremarkable. EXTRACRANIAL: The visualized portion of the orbits is intact. 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 There is a small fluid level within the left maxillary sinus . SKULL: The calvaria is intact. No evidence of skull fracture. Previous craniotomies are stable. CONCLUSION: 1. Stable bifrontal subacute/chronic subdural hygromas. 2. Mild central cerebral atrophy. 3. Left frontal encephalomalacia. 4. No acute infarct, acute hemorrhage, midline shift or extra axial fluid collections. 5. Mild periventricular white matter small vessel ischemic changes bilaterally. 6. Small fluid level within left maxillary sinus. 7. 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 Sabas Hook MD on November 20, 2017 at 11:02 Board Certified Radiologist. This report was verified electronically.
--- NOTE | 2017-11-20 11:54 | RADRPT ---
EXAM DATE/TIME: 11/20/2017 10:53 [facility] COMPARISON: CHEST SINGLE AP, November 12, 2017, 10:08. INDICATIONS : Short of breath. MEDICAL HISTORY : Hypertension. Diabetes mellitus type II. Gastroesophageal reflux disease. seizures, Alzheimer's, stro ke SURGICAL HISTORY : Craniotomy. ENCOUNTER: Subsequent ACUITY: 3 weeks PAIN SCORE: Non-responsive. LOCATION: Bilateral chest FINDINGS: A single view of the chest demonstrates the lungs to be symmetrically aerated without evidence of mas s, infiltrate or effusion except for small faint nodule overlying left lower lobe, smaller than on e . The left hemidiaphragm remains elevated.. The cardiomediastinal contours are unremarkable. Osseous structures are intact. CONCLUSION: Left hemidiaphragm remains elevated. Small faint nodule left lung is smaller than on the previous sendy dy. Ezra Villagomez MD on November 20, 2017 at 11:51 Board Certified Radiologist. This report was verified electronically.
[2017-11-20 12:00] VITALS: BP 110/70; PULSE 101; RESP 19; TEMP 98.6; O2SAT 96
[2017-11-20 16:00] VITALS: BP 111/68; PULSE 97; RESP 18; TEMP 98; O2SAT 97
[2017-11-20] MEDS: DOCUSATE SODIUM 100 MG CAP PO SCH ×2 (16:30→23:09)
--- NOTE | 2017-11-20 19:20 | MB ---
cc: Brody Mccain MD, David J MD DATE: 11/20/2017 HISTORY OF PRESENT ILLNESS: The patient is a 77-year-old man who was seen by Dr. Landers in September and Dr. Davis in 2008. He had some transient right hemisensory loss, some ataxia 2014, seen by Dr. Salazar with subdural hematoma, type 2 diabetes, hypertension, bilateral frontotemporoparietal craniotomy. Dr. Landers saw him on 10/08/2017. He had a seizure a couple years ago and a fall. Only one seizure as far as the family knows. He had been on Dilantin 200 twice a day. Then, a week prior to Dr. Landers seeing him he had a seizure. Dilantin was increased to 200/300. He had generalized weakness, came to the ER, had Dilantin level of 20. Outpatient, he sees Dr. Davis. There is a history of dementia, on Namenda and Aricept, but he does usually talk. He is diabetic, on insulin. His white count was 16,000. His Dilantin level was 20. He was admitted on 10/29/2017 from [facility] with decreased appetite, weakness and he had Dilantin toxicity. When I saw him, he was on Dilantin 200 q.i.d, amantadine, Aricept 2.5 a day. Dilantin level was 39, had come down to 22. CAT scan showed bilateral craniectomy, left frontal lobe encephalomalacia, stable subdural hygroma, some increased ventricular size. MRI of the brain in September was stable, nothing acute. Carotid ultrasound was negative. MRA of the [place] was negative. CAT scan in 04/2017 showed the ventricular size was enlarged at that time. We checked an EEG. We stopped his Dilantin. I switched him to Keppra. He was discharged from the hospital and then seen the next day in the emergency room for shortness of breath. His O2 saturations were fine, although some of the O2 saturations were in the high 80s, low 90s. His thought he had a fever. He was on Keppra 1000 mg q. 12 hours at that time. He had a PE and was subsequently readmitted. He saw cardiology on 11/14 and was put on a heparin drip. He had a nonocclusive thrombus in the mid portion of the right superficial femoral vein. He had a heart rate of 100. They wondered if he could have had A-fib. Cardiology saw him for that reason. He did not note any atrial fibrillation and did not think he had A-fib. About 3 days ago, he stopped talking and stopped eating. He seemed to be doing fine up until that time, according to the family. CURRENT MEDICATIONS: He is on Keppra 1000 b.i.d., but unable to take anything by mouth. He is on Eliquis 5 b.i.d., but unable to take it by mouth. He is on Insulin, Pepcid, Colace, lactulose, Pravachol, Lopressor, Aricept 2.5, Namenda 10 a day, Tylenol. REVIEW OF SYSTEMS: Unable to give. SOCIAL HISTORY: Has been recently living with his family: Not a smoker or drinker. Has Alzheimer's dementia. NEUROLOGIC EXAMINATION: On exam afebrile, 97, 18 111/68 to 94/60. He is awake and alert. He reacts to threat bilaterally. Face is symmetric. He will not stick his tongue out for me. He did say his 's name, but it sounded a little bit high pitched and pharyngeal. He moves all of his extremities well. The toes are downgoing bilaterally. He is awake and alert. He makes eye contact. He will not follow any commands. LABORATORY DATA: CBC is normal. BUZZ has been negative. UA is negative on this admission. Basic metabolic profile is normal. Sugars have been a little high. B12 was normal last year, Thyroid normal here. CPK normal last year. PTT is up apparently on IV heparin off of Eliquis. ABG on this admission was normal. IMAGING STUDIES: CAT scan of the brain done today was stable. IMPRESSION: Certainly a change in his talking and eating. I would check an MRI of the brain and an electroencephalogram, could be in subclinical status, change his Keppra to IV and I will be following him with you in the hospital. Stroke is another consideration. MD UNA Quiñonez/ , 06:54 PM , 07:18 PM
[2017-11-20 19:52] VITALS: BP 111/60; PULSE 93; RESP 16; TEMP 98; O2SAT 97
[2017-11-20] MEDS: PRAVASTATIN SOD 80 MG TAB PO SCH (21:00)
[2017-11-20] MEDS: INSULIN DETEMIR 100 UNITS/ML VIAL SQ SCH (21:00)
[2017-11-20] MEDS: levETIRAcetam INJ 100 ML IV SCH (22:48)
--- NOTE | 2017-11-20 23:58 | HHI.PR ---
Subjective Remarks Follow-up pulmonary embolus, respiratory failure. Patient n.p.o. status post feeling swallow eval. Patient nonverbal, appears to deny pain however. Patient seen today around 2 PM. Long discussion with family regarding options including NG tube, PEG tube. Will consult palliative care. Objective Vital Signs Date Time Temp Pulse Resp B/P (MAP) Pulse Ox O2 Delivery O2 Flow Rate FiO2 11/20/17 19:52 98.0 93 16 111/60 (77) 97 11/20/17 16:00 98.0 97 18 111/68 (82) 97 11/20/17 12:00 98.6 101 19 110/70 (83) 96 11/20/17 08:00 97.3 103 20 113/63 (80) 95 11/20/17 00:00 98.0 100 18 94/64 (74) 97 I/O 11/20/17 11/20/17 11/20/17 11/21/17 11/21/17 11/21/17 07:00 15:00 23:00 07:00 15:00 23:00 Intake Total 0 ml 410 ml Output Total 3 ml Balance -3 ml 0 ml 410 ml Intake Oral 0 ml 0 ml IV Total 410 ml Output Urine Total 2 ml Stool Total 1 ml # Voids 5 # Bowel Movements 0 Result Diagram: 11/20/17 0753 11/20/17 0753 Objective Remarks GENERAL: Patient appears to be smiling. Drooling. No intelligible speech. Makes good eye contact. SKIN: Warm and dry. HEAD: Normocephalic. EYES: No scleral icterus. No injection or drainage. NECK: Supple, trachea midline. No JVD. CARDIOVASCULAR: Regular rate and rhythm without murmurs, gallops, or rubs. RESPIRATORY: Breath sounds equal bilaterally. No accessory muscle use. GASTROINTESTINAL: Abdomen soft, non-tender, nondistended. MUSCULOSKELETAL: No cyanosis, or edema. BACK: Nontender without obvious deformity. No CVA tenderness. A/P Assessment and Plan //Acute respiratory failure: Resolved. Patient now on room air. //Pulmonary embolism: Continue apixaban 5 mg twice daily. //Dysphagia. Patient drooling, does not appear to be tolerating liquids. Appreciate speech therapy assistance. Chest x-ray with no acute findings. CT head with stable hygromas. Consult neurology. Appreciate assistance. //Hypertension: Continue Lopressor. // Tachycardia: Improved. Continue beta-clemente. // Diabetes mellitus: Continue Levemir. Monitor Accu-Cheks and cover with sliding scale insulin. // Seizure disorder: Continue Keppra. // Dementia: Continue Aricept, Namenda. // UTI, possible pneumonia: Completed course of antibiotics. Remains afebrile. // FEN: Patient failed swallow eval. N.p.o. currently. Continue IV fluids. Discharge Planning SNF versus home with home health when medically stable. Case management assisting with DME for possible discharge home including hospital bed. 11/20. May need PEG tube. palliative care consult. Mannie Milton MD Nov 20, 2017 23:58
[2017-11-21] VITALS (7 sets, daily range): BP systolic 106–115; BP diastolic 61–82; PULSE 63–95; RESP 16–19; TEMP 97–98.4; O2SAT 95–100
--- NOTE | 2017-11-21 07:27 | HHI.PR ---
Objective Vital Signs Date Time Temp Pulse Resp B/P (MAP) Pulse Ox O2 Delivery O2 Flow Rate FiO2 11/21/17 04:00 98.2 95 18 115/69 (84) 100 11/21/17 00:00 97.5 89 18 106/61 (76) 98 11/20/17 19:52 98.0 93 16 111/60 (77) 97 11/20/17 16:00 98.0 97 18 111/68 (82) 97 11/20/17 12:00 98.6 101 19 110/70 (83) 96 11/20/17 08:00 97.3 103 20 113/63 (80) 95 I/O 11/20/17 11/20/17 11/20/17 11/21/17 11/21/17 11/21/17 07:00 15:00 23:00 07:00 15:00 23:00 Intake Total 0 ml 410 ml 100 ml Output Total 3 ml Balance -3 ml 0 ml 410 ml 100 ml Intake Oral 0 ml 0 ml IV Total 410 ml 100 ml Output Urine Total 2 ml Stool Total 1 ml # Voids 5 # Bowel Movements 0 Result Diagram: 11/20/17 0753 11/20/17 0753 Objective Remarks awake whispered ? tessa did follow some commsnds for me Assessment and Plan Assessment and Plan imp mri eeg can med team try and look at his tongue and make sure not swollen with tongue depressor today? Brody Mccain MD Nov 21, 2017 07:27
[2017-11-21] MEDS: MEDIUM DOSE INSULIN NOVOLOG SUPPLEMENTAL SCALE SQ SCH ×4 (08:00→21:00)
[2017-11-21] MEDS: FAMOTIDINE 20 MG TAB PO SCH ×2 (08:00→16:35)
[2017-11-21] MEDS: SODIUM CHLOR 0.9% 1000 ML INJ 1,000 ML IV SCH (08:36)
[2017-11-21] MEDS: DONEPEZIL HCL 5 MG TAB PO SCH (08:36)
[2017-11-21] MEDS: MEMANTINE HCL 10 MG TAB PO SCH (08:36)
[2017-11-21] MEDS: levETIRAcetam INJ 100 ML IV SCH ×2 (08:36→21:31)
[2017-11-21] MEDS: LACTULOSE SYRUP 20 GM/30 ML CUP PO SCH ×3 (08:36→16:35)
[2017-11-21] MEDS: METOPROLOL TARTRATE 25 MG TAB PO SCH ×2 (08:36→21:00)
[2017-11-21] MEDS: APIXABAN 5 MG TABLET PO SCH ×2 (08:36→21:00)
[2017-11-21] MEDS: MULTIVITAMINS/MINERALS THERAPEUTIC TAB PO SCH (08:37)
[2017-11-21] MEDS: SENNOSIDES SYRUP 8.8 MG/5 ML CUP PO SCH (08:37)
--- NOTE | 2017-11-21 10:36 | PD.CONS ---
Consult Service Palliative Care Consult Requested By Dr. Milton Primary Care Physician Manjit Jiménez MD Reason for Consultation a. To assist with evaluation and management of symptoms including: dysphagia , debility b. To assist medical decision maker(s) with: better understanding of current medical conditions; weighing benefits/burdens of medical treatment options; making medical treatment decisions. HPI History of Present Illness Mr. Velazquez is a 77-year-old with a significant past medical history of traumatic brain injury, CVA, dementia, seizure disorder, diabetes, CAD, hypertension, and GERD. Patient presented to ER via EMS on 11/05/17 after his home health nurse advised him and his family to be further evaluated for shortness of breath. Duonebs and albuterol were administered by EMS en route to the ER family reported that patient has had cough, congestion and has been gagging. ER course: * Vital signs: Temperature 98.7, pulse 115, respirations 18, BP 168/76, O2 saturation 94% on O2 2 L nasal cannula * EKG revealed sinus tachycardia with a rate of 1 2, incomplete RBBB * Laboratory workup revealed WBC 11.0, hemoglobin 15.0, hematocrit 44.9, platelet count 246, sodium 140, potassium 3.7, BUN/creatinine 9/1.23, troponin less than 0.02, BNP 6, total protein 8.4, albumin 3.1, PT 11.1, INR 1.1, APTT 25.5, d-dimer quant 10.72 * CTA chest revealed extensive pulmonary emboli involving the right main, upper and lower lobe pulmonary arteries as well as the left upper lobe pulmonary artery. Elevation of the left hemidiaphragm. Posterior bibasilar atelectasis and/or infiltrates. Degenerative changes throughout the thoracic spine. * Urinalysis revealed small leukocyte esterase, culture indicated-negative * Chest x-ray revealed stable chest x-ray and no acute cardiopulmonary abnormality. * 500 mL's IV normal saline administered * Patient was started on a heparin drip and admitted to ICU under the care of critical care management physician. Speech therapy consulted 11/06/17, patient failed swallow evaluation and was placed on n.p.o. status. Nasogastric tube placed. Lower extremity ultrasound revealed nonocclusive thrombus within the midportion of the right superficial femoral vein. Hematology Dr. Dawn consulted on 11/10/17 to evaluate and advise on therapy for patient with extensive PE, recommended Lovenox therapy. Heparin drip stopped on 11/11 and patient was started on Lovenox therapy. Cardiology Dr. Nelson consulted on 11/14/17 for evaluation of arrhythmia and possible atrial fibrillation. Cardiology does not think that patient has atrial fibrillation instead he had sinus tachycardia was consistent with current pulmonary embolus and overall illness. Patient stopped talking and eating. Neurology Dr. Mccain consulted on 11/20/17 to evaluate patient with intermittent dysphagia. Head CT on 11/20/17 revealed stable bifrontal subacute/chronic subdural hygromas. mild central cerebral atrophy. Left frontal encephalomalacia. No acute infarct, acute hemorrhage, midline shift or extra-axial fluid collections. Mild periventricular white matter small vessel ischemic changes bilaterally. Small fluid level within the left maxillary sinus. 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 Clinical course complicated with extensive pulmonary emboli and superficial femoral vein thrombus, arrhythmia, dysphagia. Medical team discussed with family regarding options including nasogastric tube, PEG tube. Palliative care consulted to assist with establishing goals of care and symptom management. Lab work today. MRI ordered today. Vital signs stable. Patient seen and examined in his room in the presence of his son Rene Kurtz Jr, ready to be transported to radiology. Patient is awake, alert, smiling and seldomly speaks. Patient followed simple commands, was not able to verbally answer most of the questions, but was able to state his son's and `s name. Obtained some of patient's psychosocial history from his son. Telephone conversation with patient's Yajaira Kurtz. Obtained and clarified psychosocial and past medical history including events leading to this hospitalization. Patient does not have advanced directives. Patient's mentioned that in 2014 he completed the healthcare surrogate (HCS) part of the living will form and she is the HCS. Updated patient's on current status. Patient's and family would like patient to be further evaluated by an ENT physician, to find out why patient is unable to swallow before they can make a decision to behave a PEG tube inserted. Discussed progression of dementia and provided anticipatory guidance. Addressed code status, discussed limitations of CPR, patient's would like to discuss with family regarding code status and decision on PEG placement after ENT consult or further evaluation tests to find cause for dysphagia. Explained to that patient would be a full code by default while she discusses with her family and she can always change code status at any time. Patient`s elected full code. Introduced hospice philosophy and benefits. Patient's stated that, "patient would want to go on as long as he can if possible" but would include discussion regarding hospice with family in case patient may need it in the future. At this time family would want aggressive treatment. Palliative care contact information provided. Case discussed with Dr. Milton. . Function/Cognitive Trajectory Patient lived at home with his spouse up until 2 months ago. Patient was admitted from 10/08-10/14/17 and was discharged to [facility]. Patient was brought to the hospital from [facility] on 11/01-11/04/17 due to decrease in activity and decreased oral intake and was treated for Dilantin toxicity then discharged home with home health care. Patient was discharged home and readmitted back at the hospital on 11/05/17. Per family 2 months ago patient was able to ambulate with no assistive devices and was able to feed himself. He required assistance with bathing and occasionally was able to verbalize needs though sometimes needs were anticipated. He was able to recognize family members. Family is not sure if he has been out of bed to ambulate at rehab. . Review of Systems ROS Limitations: Other (Hx of dementia-seldomly speaking) Constitutional: COMPLAINS OF: Weight loss, Change in appetite, Generalized weakness Eyes: DENIES: Eye inflammation Ears, nose, mouth, throat: DENIES: Hearing loss, Nasal discharge Respiratory: COMPLAINS OF: Cough, Shortness of breath Cardiovascular: DENIES: Lower Extremity Edema Gastrointestinal: COMPLAINS OF: Difficulty Swallowing Genitourinary: COMPLAINS OF: Urinary incontinence Hematologic/Lymphatics: COMPLAINS OF: Bruising Neurologic: COMPLAINS OF: Seizures Psychiatric: COMPLAINS OF: Confusion, DENIES: Hallucinations, Agitation Other ROS: ROS obtained from EMR, family and clinical observation . Past Family Social History Coded Allergies: No Known Allergies (Verified Allergy, Unknown, 10/29/17) Past Medical History Traumatic brain injury 2015 CVA Dementia Hypertension Seizure disorder Diabetes mellitus Coronary artery disease GERD . Past Surgical History Bilateral craniotomy Cardiac catheterization . Reported Medications Keppra (Levetiracetam) 500 Mg Tab 1,000 Mg PO Q12HR Novolog Inj (Insulin Aspart) 1,000 Unit/10 Ml Vial 1-9 Units SQ ACHS Levemir Flextouch Pen Inj (Insulin Detemir) 300 unit/3 ML Pen 10 Units SQ DAILY Aricept (Donepezil HCl) 5 Mg Tablet 2.5 Mg PO DAILY Dulcolax Supp (Bisacodyl) 10 Mg Supp 10 Mg RECTAL DAILY PRN Tylenol (Acetaminophen) 325 Mg Tab 325 Mg PO Q4H PRN Memantine 10 Mg Tab 10 Mg PO DAILY Glipizide 10 Mg Tab 10 Mg PO DAILY Oxybutynin ER 24 HR (Oxybutynin Chloride) 5 Mg Tab 5 Mg PO BID Centrum Silver (Multiple Vitamins W/ Minerals) 400 Mcg-250 Mcg Chw 1 Tab PO DAILY Zocor (Simvastatin) 40 Mg Tab 40 Mg PO HS Omeprazole 20 Mg Tab 20 Mg PO DAILY . Current Medications Medications (Trade) Dose Ordered Sig/Rylie Route Start Time Stop Time Status Last Admin (NS Flush) 2 ml UNSCH PRN IVF 11/05/17 13:30 Miscellaneous Information Patient in critical care unit? Ass... Q361D .XX 11/06/17 02:00 11/06/17 02:00 (Tylenol) 325 mg Q4H PRN PO 11/06/17 03:30 11/10/17 12:23 (Dulcolax Supp) 10 mg DAILY PRN RECTAL 11/06/17 03:30 (Aricept) 2.5 mg DAILY PO 11/06/17 09:00 11/19/17 08:54 (Namenda) 10 mg DAILY PO 11/06/17 09:00 11/19/17 08:53 (Theragran M Tab) 1 tab DAILY PO 11/06/17 09:00 11/19/17 08:53 (Pravachol) 80 mg HS PO 11/06/17 21:00 11/18/17 21:39 (Duoneb Neb) 1 ampule Q2HR NEB PRN NEB 11/06/17 09:15 (Lopressor) 25 mg Q12HR PO 11/06/17 10:00 11/19/17 08:54 (Pepcid) 20 mg Q12H PO 11/07/17 20:00 11/19/17 08:53 (Senna Liq) 8.8 mg DAILY PO 11/07/17 17:00 11/19/17 08:55 (Colace) 100 mg Q12H PO 11/07/17 18:00 11/18/17 08:25 (Lactulose Liq) 30 ml TID PO 11/07/17 18:00 11/19/17 08:53 (D50w (Vial) Inj) 50 ml UNSCH PRN IV PUSH 11/12/17 18:45 (Glucagon Inj) 1 mg UNSCH PRN OTHER 11/12/17 18:45 (NovoLOG SUPPLEMENTAL SCALE) 1 ACHS SLIDING SCALE SQ 11/12/17 21:00 11/18/17 21:38 (Levemir Inj) 15 units HS SQ 11/13/17 21:00 11/18/17 21:39 (Eliquis) 5 mg BID PO 11/16/17 21:00 11/19/17 08:54 Sodium Chloride 1,000 ml @ 50 mls/hr Q20H IV 11/19/17 14:30 11/21/17 08:36 Levetriacetam 100 ml @ 400 mls/hr Q12HR IV 11/20/17 21:00 11/21/17 08:36 Family History Patient has 4 adult living children . Substance Use Tobacco: Remote history of smoking quit 40 years ago Alcohol: None reported Prescription med abuse: None reported Illicits: None reported . Psychosocial History Patient was born and raised in [place]. 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 Patient has been to his Yajaira Kurtz on for the past 53 years. Patient has 4 adult children, 3 sons(Rene Morales (works at [employer], [employer]) and 1 daughter (Eve Gtz). Patient enjoys dancing. No background. . Spiritual/Cultural Factors Patient is Jain . Living Will: Copy in medical record Health Care Surrogate: Copy in medical record Date completed: 10/16/14 . Health Care Surrogate(s): [facility] -Yajaira Kurtz [address] [place] [address] Telephone [phone] . Documented care wishes: Patient did not complete the top part of the living will only completed healthcare surrogate information. . Family/friends goals: Family would want patient to be evaluated by ENT before making a decision on PEG tube placement. Plan is to have patient discharged home, where he can be around his family. . Ethical and Legal Issues None identified at this time . Physical Exam Vital Signs Date Time Temp Pulse Resp B/P (MAP) Pulse Ox O2 Delivery O2 Flow Rate FiO2 11/21/17 07:31 97.8 63 19 107/82 (90) 96 11/21/17 04:00 98.2 95 18 115/69 (84) 100 11/21/17 00:00 97.5 89 18 106/61 (76) 98 11/20/17 19:52 98.0 93 16 111/60 (77) 97 11/20/17 16:00 98.0 97 18 111/68 (82) 97 11/20/17 12:00 98.6 101 19 110/70 (83) 96 Exam CONSTITUTIONAL/GENERAL: This is an adequately nourished patient, in no apparent distress. TUBES/LINES/DRAINS: PIV SKIN: No jaundice, rashes, or lesions. Ecchymoses on upper extremities. No wounds seen anteriorly. Skin temperature appropriate. Not diaphoretic. HEAD: Atraumatic. Normocephalic. EYES: Pupils equal and round and reactive. Extraocular motions intact. Fundi not examined. ENT: Hearing grossly normal. Nose without bleeding or purulent drainage. Moist oral mucosa, patient unable to open his mouth wide for assessment NECK: Trachea midline. Supple, nontender. CARDIOVASCULAR: S1-S2 normal. No JVD. Peripheral pulses symmetric. RESPIRATORY/CHEST: Symmetric, unlabored respirations.No wheezes, rales, or rhonchi. Lung sounds diminished in the bases. GASTROINTESTINAL: Abdomen soft, non-tender, nondistended. No guarding. Bowel sounds present. GENITOURINARY: Without palpable bladder distension. MUSCULOSKELETAL: Extremities without clubbing, cyanosis, or edema. No joint tenderness or effusion noted. No calf tenderness. NEUROLOGICAL: Awake, alert, oriented to self with some confusion. Seldomly speaks. Motor and sensory grossly within normal limits. Follows simple commands. Moves all extremities. PSYCHIATRIC: No obvious anxiety/depression. no apparent hallucinations or other psychotic thought process. Diagnostic Tests Laboratory Laboratory Tests Test 11/20/17 07:53 11/20/17 19:25 11/20/17 20:23 White Blood Count 10.3 TH/MM3 (4.0-11.0) Red Blood Count 4.62 MIL/MM3 (4.50-5.90) Hemoglobin 13.5 GM/DL (13.0-17.0) Hematocrit 40.1 % (39.0-51.0) Mean Corpuscular Volume 86.8 FL (80.0-100.0) Mean Corpuscular Hemoglobin 29.1 PG (27.0-34.0) Mean Corpuscular Hemoglobin Concent 33.6 % (32.0-36.0) Red Cell Distribution Width 15.7 % (11.6-17.2) Platelet Count 554 TH/MM3 (150-450) Mean Platelet Volume 7.5 FL (7.0-11.0) Neutrophils (%) (Auto) 68.4 % (16.0-70.0) Lymphocytes (%) (Auto) 21.1 % (9.0-44.0) Monocytes (%) (Auto) 8.5 % (0.0-8.0) Eosinophils (%) (Auto) 1.4 % (0.0-4.0) Basophils (%) (Auto) 0.6 % (0.0-2.0) Neutrophils # (Auto) 7.1 TH/MM3 (1.8-7.7) Lymphocytes # (Auto) 2.2 TH/MM3 (1.0-4.8) Monocytes # (Auto) 0.9 TH/MM3 (0-0.9) Eosinophils # (Auto) 0.1 TH/MM3 (0-0.4) Basophils # (Auto) 0.1 TH/MM3 (0-0.2) CBC Comment DIFF FINAL Differential Comment Blood Urea Nitrogen 15 MG/DL (7-18) Creatinine 1.10 MG/DL (0.60-1.30) Random Glucose 132 MG/DL (74-106) Calcium Level 9.6 MG/DL (8.5-10.1) Sodium Level 138 MEQ/L (136-145) Potassium Level 4.4 MEQ/L (3.5-5.1) Chloride Level 104 MEQ/L (98-107) Carbon Dioxide Level 25.7 MEQ/L (21.0-32.0) Anion Gap 8 MEQ/L (5-15) Estimat Glomerular Filtration Rate 79 ML/MIN (>89) Blood Gas Puncture Site RT RADIAL Blood Gas Patient Temperature 98.6 Blood Gas HCO3 24 mmol/L (22-26) Blood Gas Base Excess 0.3 mmol/L (-2-2) Blood Gas Oxygen Saturation 94 % (90-100) Arterial Blood pH 7.43 (7.380-7.420) Arterial Blood Partial Pressure CO2 37 mmHg (38-42) Arterial Blood Partial Pressure O2 81 mmHg (61-120) Arterial Blood Oxygen Content 16.5 Vol % (12.0-20.0) Arterial Blood Carboxyhemoglobin 1.6 % (0-4) Arterial Blood Methemoglobin 0.7 % (0-2) Blood Gas Hemoglobin 12.4 G/DL (12.0-16.0) Oxygen Delivery Device ROOM AIR Blood Gas Inspired Oxygen 21 % Ammonia 11 MCMOL/L (11-32) Result Diagram: 11/20/17 0753 11/20/17 0753 Microbiology 11/06/17-urine culture-showed no growth -Presumptive negative for Legionella pneumophila serogroup 1 antigen in urine -Presumptive negative for Streptococcus pneumonia antigen. 11/07/17-blood culture aerobic. No growth in 5 days -Blood culture and aerobic. No growth in 5 days . Imaging Last Impressions Head CT 11/20/17 0000 Signed Impressions: Service Date/Time: Monday, November 20, 2017 10:34 - CONCLUSION: 1. Stable bifrontal subacute/chronic subdural hygromas. 2. Mild central cerebral atrophy. 3. Left frontal encephalomalacia. 4. No acute infarct, acute hemorrhage, midline shift or extra axial fluid collections. 5. Mild periventricular white matter small vessel ischemic changes bilaterally. 6. Small fluid level within left maxillary sinus. 7. 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 Sabas Hook MD Chest X-Ray 11/20/17 0000 Signed Impressions: Service Date/Time: Monday, November 20, 2017 10:53 - CONCLUSION: Left hemidiaphragm remains elevated. Small faint nodule left lung is smaller than on the previous study. Ezra Villagomez MD Abdomen X-Ray 11/07/17 0000 Signed Impressions: Service Date/Time: October 15:36 - CONCLUSION: Nasogastric tube has its tip in the proximal stomach. Sabas Hook MD Lower Extremity Ultrasound 11/06/17 0000 Signed Impressions: Service Date/Time: Monday, November 06, 2017 10:42 - CONCLUSION: Non- occlusive thrombus within the midportion of the right superficial femoral vein. Sabas Hook MD CT Angiography 11/05/17 1456 Signed Impressions: Service Date/Time: Sunday, November 05, 2017 16:10 - CONCLUSION: 1. Extensive pulmonary emboli involving the right main, upper and lower lobe pulmonary arteries as well as the left upper lobe pulmonary artery. 2. Elevation of the left hemidiaphragm. 3. Posterior bibasilar atelectasis and/or infiltrates. 4. Degenerative changes throughout the thoracic spine. Sabas Hook MD Patient/Family Conference Family Conference Location: Bedside (With patient's and Rene Morales), Telephone (with patient`s Yajaira Kurtz) Issues Discussed: * Palliative care role, purpose, approach * Additional medical, psychosocial, and spiritual history * Patients general health, functional status, and cognitive changes in the months leading up to the current hospitalization * Patient/family understanding of the current medical problems * Patient/family understanding of prognosis * Patients goals of care as best understood from advance directives and/or conversations and/or values * Current medical treatment options and benefits/burdens of those options * Likely scenarios comparing ongoing aggressive care with a transition to comfort measures only * Questions answered to the best of my ability * Introduced hospice philosophy and benefits * Palliative care contact information provided Assessment and Plan Disease Oriented Problem List: (1) Pulmonary embolism (2) Dementia (3) Sinus tachycardia (4) Seizure disorder (5) Subdural hygroma (6) Hypertension (7) GERD (gastroesophageal reflux disease) Symptom Scale: (1) Dysphagia 0-10 Scale: Unable to quantify (2) Debility 0-10 Scale: Unable to quantify Comment: Progressive . Pertinent Non-Medical Issues Psychosocial:Patient was born and raised in [place]. 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 Patient has been to his Yajaira Kurtz on for the past 53 years. Patient has 4 adult children, 3 sons( Rene Morales (works at [employer], [employer]) and 1 daughter (Eve Gtz). Patient enjoys dancing. No background. Spiritual: Patient is Jain Legal: Designated a healthcare surrogate 2014, on the living will form. Ethical issues impacting care: None identified at this time . Important Contacts Spouse-Yajaira Kurtz [phone] (home) /[phone] (other) Daughter -Eve GtzLehoulp-[phone] Son-Rene Kurtz - [phone] Son-Jerardo, Coy Son-Jerardo, Randolph . Prognosis Mr. Velazquez is a 77-year-old with a significant past medical history of traumatic brain injury, CVA, dementia, seizure disorder, diabetes, CAD, hypertension, and GERD. Patient presented to ER via EMS on 11/05/17 after his home health nurse advised him and his family to be further evaluated for shortness of breath, cough and congestion. Clinical course complicated with extensive pulmonary emboli and superficial femoral vein thrombus, arrhythmia, dysphagia. Given ongoing comorbidities, patient remains at high risk for further complications, deterioration and decline. . Code Status: Full Code Plan PLAN: Legal decision maker: Patient has history of dementia and is not able to participate in medical decision making. Patient`s Yajaira Kurtz who is the Health care surrogate will make medical decisions for the patient. Goals: Aggressive CODE STATUS: Full code Telephone conversation with patient's Yajaira Kurtz. Obtained and clarified psychosocial and past medical history including events leading to this hospitalization. Patient does not have advanced directives. Patient's mentioned that in 2014 he completed the healthcare surrogate part of the living will form. It appears that he signed it after he was diagnosed with dementia. Explained to that according to [place] statute she still can save this patient's healthcare proxy. Updated patient's on current status. Patient's and family would like patient to be further evaluated by an ENT physician, to find out why patient is unable to swallow before they can make a decision to behave a PEG tube inserted. Discussed progression of dementia and provided anticipatory guidance. Addressed code status, discussed limitations of CPR, patient's would like to discuss with family regarding code status and decision on PEG placement after ENT consult or further evaluation tests to find cause for dysphagia. Explained to that patient would be a full code by default while she discusses with her family and she can always change code status at any time. Patient`s elected full code. Introduced hospice philosophy and benefits. Patient's stated that, "patient would want to go on as long as he can if possible" but would include discussion regarding hospice with family in case patient may need it in the future. At this time family would want aggressive treatment. Palliative care contact information provided. SYMPTOMS: * Dysphagia: Patient has failed swallow evaluation. Currently n.p.o. Family is faced with making a decision to have PEG tube placed, thought they would want further tests and/or any evaluation by ENT to find because of dysphagia before making the decision. * Debility: Patient has spent the last month between hospital and rehabilitation and family states that he has been mostly bedbound. Physical therapy consulted and recommended PT at rehab. Speech therapy also following. Recommending increasing activity while in hospital Palliative care will continue to follow the patient during hospital course as condition evolves, to assist patient/decision-maker with understanding of their medical conditions, weighing benefits/burdens of treatment options, for clarification of goals of treatment. Additionally will assist with any symptoms of palliative concern Thank you for the opportunity to participate in the care of Mr. Kurtz. Attestation To help prompt me to consider important information that might be impacting today's encounter and assessment, information from prior notes written by myself or my colleagues may have been "brought forward" into today's note. My signature on this note, however, is an attestation that I personally performed the exam, history, and/or decision-making noted today, and, unless otherwise indicated, the interactions with patient, family, and staff as well as the review of records all occurred today. I also attest that the listed assessment and stated plan reflect my best clinical judgment today based on the combination of historical information, prior notes, and today's exam/ interactions. When time spent is documented, it refers only to time spent today by the signer, or if indicated, combined time spent today by collaborating physician/nurse practitioner. Sahma Rahman Nov 21, 2017 10:36
--- NOTE | 2017-11-21 12:17 | MG ---
cc: Florin Ware MD, PhD TEST #[id number] TECHNIQUE: 17-channel EEG. DESCRIPTION: The background rhythm reveals a symmetrical alpha rhythm with a frequency of 8-10 Hz. Amplitude is 10-15 microvolts. Occasional eye movement and muscle artifact is identified. No lateralizing features are identified and no epileptiform features are identified. Photic resulted in a normal driving response. INTERPRETATION: Normal EEG. Florin Ware MD, PhD [place]/TL , 12:03 PM , 12:16 PM
[2017-11-21] MEDS ORDERED: GADODIAMIDE PF 287 MG/ML 5 ML VIAL (for RAD MRI) IVCONTRAST ONE (13:09)
--- NOTE | 2017-11-21 14:24 | RADRPT ---
EXAM DATE/TIME: 11/21/2017 12:22 [facility] COMPARISON: No previous studies available for comparison. INDICATIONS : CVA. Inability to swallow. CONTRAST: 14 cc Omniscan (gadodiamide) IV MEDICAL HISTORY : Diabetes mellitus type 2. Dementia. Gastroesophageal reflux disease. Hypertension, seizure and ramirez ry artery disease. SURGICAL HISTORY : Craniotomy. ENCOUNTER: Initial ACUITY: 1 day PAIN SCORE: 0/10 LOCATION: Head. TECHNIQUE: Multiplanar, multisequence MRI of the brain was performed both prior to and following the administrat ion of paramagnetic contrast. FINDINGS: MRI of the brain is performed in sagittal, axial and coronal planes. The craniocervical junction and midline structures are unremarkable. Diffusion weighted images demonstrate no abnormality. There is n o evidence of acute cortical infarction, acute hemorrhage, mass effect or midline shift is seen. Post erior fossa structures are unremarkable. The ventricles are enlarged out of proportion to the sulcal atrophy. In addition the third ventricle is somewhat prominent. Following the administration of contr ast no abnormal enhancement is identified. Clinical correlation would be helpful in regards to the p ossibility of normal pressure hydrocephalus. There is benign-appearing mucosal disease involving the frontal sinuses bilaterally. There is a small area of encephalomalacia in the left orbital frontal re gion. CONCLUSION: 1. No evidence of acute intracranial pathology. No masses are identified. Small area of encephalomala antoine left frontal lobe 2. Possible normal pressure hydrocephalus. Correlation with clinical findings is necessary. Brody Hernandez MD on November 21, 2017 at 13:56 Board Certified Radiologist. This report was verified electronically.
--- NOTE | 2017-11-21 15:07 | RADRPT ---
EXAM DATE/TIME: 11/21/2017 00:00 [facility] COMPARISON: No previous studies available for comparison. INDICATIONS : Dysphagia. FLUORO TIME: 1.3 minutes IMAGE COUNT: 0 CONTRAST: Dose as prescribed by speech pathologist. MEDICAL HISTORY : Diabetes mellitus type II. Hypertension. dementia, GERD, seizures, coronarty artery disease SURGICAL HISTORY : Craniotomy. ENCOUNTER: Initial ACUITY: 2 weeks PAIN SCORE: Non-responsive. LOCATION: Bilateral neck FINDINGS: A modified barium swallow was performed with speech pathology. Patient was given a variety of liquids to swallow. There was a small amount of penetration. For a full detailed report, see report by the speech pathologist. CONCLUSION: Small amount of penetration with the thicker liquid. Ezra Villagomez MD on November 21, 2017 at 15:05 Board Certified Radiologist. This report was verified electronically.
[2017-11-21] MEDS: DOCUSATE SODIUM 100 MG CAP PO SCH (16:35)
[2017-11-21] MEDS: PRAVASTATIN SOD 80 MG TAB PO SCH (21:00)
[2017-11-21] MEDS: INSULIN DETEMIR 100 UNITS/ML VIAL SQ SCH (21:00)
--- NOTE | 2017-11-21 23:21 | HHI.PR ---
Subjective Remarks Follow-up pulmonary embolus, respiratory failure. no with dysphagia. Patient seen this morning around 11 AM. Patient smiling, obeys commands to breathe, no other communication. Does not seem to understand to open his mouth when instructed during exam, however does open his mouth while yawning, with no obvious thrush or pharyngeal erythema noted. Objective Vital Signs Date Time Temp Pulse Resp B/P (MAP) Pulse Ox O2 Delivery O2 Flow Rate FiO2 11/21/17 20:00 98.4 89 16 115/69 (84) 95 11/21/17 16:00 97.0 92 17 113/72 (86) 98 11/21/17 11:49 98.2 89 19 107/62 (77) 96 11/21/17 07:31 97.8 63 19 107/82 (90) 96 11/21/17 04:00 98.2 95 18 115/69 (84) 100 11/21/17 00:00 97.5 89 18 106/61 (76) 98 I/O 11/21/17 11/21/17 11/21/17 11/22/17 11/22/17 11/22/17 07:00 15:00 23:00 07:00 15:00 23:00 Intake Total 100 ml 100 ml Balance 100 ml 100 ml IV Total 100 ml 100 ml # Voids 6 # Bowel Movements 2 Result Diagram: 11/20/17 0753 11/20/17 0753 Objective Remarks GENERAL: Patient appears to be smiling. Drooling. No intelligible speech. Makes good eye contact. SKIN: Warm and dry. HEAD: Normocephalic. EYES: No scleral icterus. No injection or drainage. NECK: Supple, trachea midline. No JVD.oropharynx visualized on patient yawning. No oropharyngeal erythema or white plaques. Patient is drooling, most of which is in facial hair. CARDIOVASCULAR: Regular rate and rhythm without murmurs, gallops, or rubs. RESPIRATORY: Breath sounds equal bilaterally. No accessory muscle use. GASTROINTESTINAL: Abdomen soft, non-tender, nondistended. MUSCULOSKELETAL: No cyanosis, or edema. BACK: Nontender without obvious deformity. No CVA tenderness. A/P Assessment and Plan ========11/21/17. ======= Dysphasia. Appreciate neurology assistance. EEG with no seizure activity. Patient may have normal pressure hydrocephalus. Management as per neurology. Due to family concern, will consult ENT. Appreciate palliative care assistance. Patient may need PEG tube depending on family's wishes. //Acute respiratory failure: Resolved. Patient now on room air. //Pulmonary embolism: Continue apixaban 5 mg twice daily. //Dysphagia. Patient drooling, does not appear to be tolerating liquids. Appreciate speech therapy assistance. Chest x-ray with no acute findings. CT head with stable hygromas. Consult neurology. Appreciate assistance. //Hypertension: Continue Lopressor. // Tachycardia: Improved. Continue beta-clemente. // Diabetes mellitus: Continue Levemir. Monitor Accu-Cheks and cover with sliding scale insulin. // Seizure disorder: Continue Keppra. // Dementia: Continue Aricept, Namenda. // UTI, possible pneumonia: Completed course of antibiotics. Remains afebrile. // FEN: Patient failed swallow eval. N.p.o. currently. Continue IV fluids. Discharge Planning SNF versus home with home health when medically stable. Case management assisting with DME for possible discharge home including hospital bed. 11/20. May need PEG tube. palliative care consult. Mannie Milton MD Nov 21, 2017 23:21
[2017-11-22] VITALS: BP 119/69; PULSE 93; RESP 16; TEMP 97.7; O2SAT 98
[2017-11-22 04:00] VITALS: BP 115/74; PULSE 91; RESP 18; TEMP 98.8; O2SAT 100
[2017-11-22] MEDS: DOCUSATE SODIUM 100 MG CAP PO SCH ×3 (06:00→22:54)
[2017-11-22] MEDS: SODIUM CHLOR 0.9% 1000 ML INJ 1,000 ML IV SCH (06:00)
--- NOTE | 2017-11-22 07:37 | HHI.PR ---
Objective Vital Signs Date Time Temp Pulse Resp B/P (MAP) Pulse Ox O2 Delivery O2 Flow Rate FiO2 11/22/17 04:00 98.8 91 18 115/74 (88) 100 11/22/17 00:00 97.7 93 16 119/69 (86) 98 11/21/17 21:00 89 11/21/17 20:00 98.4 89 16 115/69 (84) 95 11/21/17 16:00 97.0 92 17 113/72 (86) 98 11/21/17 11:49 98.2 89 19 107/62 (77) 96 I/O 11/21/17 11/21/17 11/21/17 11/22/17 11/22/17 11/22/17 07:00 15:00 23:00 07:00 15:00 23:00 Intake Total 100 ml 200 ml 1000 ml Balance 100 ml 200 ml 1000 ml IV Total 100 ml 200 ml 1000 ml # Voids 6 4 # Bowel Movements 2 Result Diagram: 11/20/17 0753 11/20/17 0753 Objective Remarks awakens sleepy Assessment and Plan Assessment and Plan imp mri no new no change vents c/t 05/14 eeg neg failed mbs i dced the statin and the keppra i would wait until saturday and see if swallow better off these meds b4 peg placed if family wants peg Brody Fong MD Nov 22, 2017 07:37
[2017-11-22] MEDS: FAMOTIDINE 20 MG TAB PO SCH ×2 (07:41→20:00)
[2017-11-22] MEDS: MEDIUM DOSE INSULIN NOVOLOG SUPPLEMENTAL SCALE SQ SCH ×2 (07:41→11:58)
[2017-11-22] MEDS: DONEPEZIL HCL 5 MG TAB PO SCH (07:42)
[2017-11-22] MEDS: APIXABAN 5 MG TABLET PO SCH (07:42)
[2017-11-22] MEDS: LACTULOSE SYRUP 20 GM/30 ML CUP PO SCH ×3 (07:46→17:31)
[2017-11-22] MEDS: METOPROLOL TARTRATE 25 MG TAB PO SCH ×2 (07:46→21:00)
[2017-11-22] MEDS: MEMANTINE HCL 10 MG TAB PO SCH (07:47)
[2017-11-22] MEDS: SENNOSIDES SYRUP 8.8 MG/5 ML CUP PO SCH (07:47)
[2017-11-22] MEDS: MULTIVITAMINS/MINERALS THERAPEUTIC TAB PO SCH (07:48)
[2017-11-22 08:03] VITALS: BP 117/71; PULSE 71; RESP 18; TEMP 97.7; O2SAT 96
[2017-11-22 08:43] LABS: AUTOMATED NEUTROPHIL # 4.8 TH/MM3 (1.8-7.7); BASOPHIL # 0.1 TH/MM3 (0-0.2); BASOPHIL % 0.8 % (0.0-2.0); EOSINOPHIL # 0.1 TH/MM3 (0-0.4); HEMATOCRIT 39.3 % (39.0-51.0); HEMOGLOBIN 13.2 GM/DL (13.0-17.0); LYMPHOCYTE # 1.7 TH/MM3 (1.0-4.8); MEAN CELL VOLUME 86.2 FL (80.0-100.0); MEAN CORPUSCULAR HGB CONC 33.6 % (32.0-36.0); MEAN PLATELET VOLUME 7.9 FL (7.0-11.0); MONO % 7.6 % (0.0-8.0); MONOCYTE # 0.5 TH/MM3 (0-0.9); NEUT % 66.6 % (16.0-70.0); PLATELET COUNT 585 TH/MM3 (150-450); RED BLOOD COUNT 4.56 MIL/MM3 (4.50-5.90); RED CELL DISTRIBUTION WIDTH 15.6 % (11.6-17.2); WHITE BLOOD COUNT 7.2 TH/MM3 (4.0-11.0)
[2017-11-22 09:10] LABS: ALBUMIN 2.7 GM/DL (3.4-5.0); BICARBONATE 23.7 MEQ/L (21.0-32.0); CALCIUM 9.4 MG/DL (8.5-10.1); CREATININE 0.86 MG/DL (0.60-1.30); MAGNESIUM 1.7 MG/DL (1.5-2.5)
[2017-11-22 09:11] LABS: PHOSPHORUS 3.4 MG/DL (2.5-4.9)
[2017-11-22] MEDS ORDERED: HEPARIN SODIUM - IV 10,000 UNITS/10 ML VIAL IV ONE (10:30)
[2017-11-22 12:00] VITALS: BP 112/69; PULSE 91; RESP 17; TEMP 97.7; O2SAT 96
[2017-11-22 12:49] LABS: HEMATOCRIT 36.7 % (39.0-51.0); HEMOGLOBIN 12.3 GM/DL (13.0-17.0); MEAN CORPUSCULAR HEMOGLOBIN 29.1 PG (27.0-34.0); MEAN CORPUSCULAR HGB CONC 33.5 % (32.0-36.0); MEAN PLATELET VOLUME 7.3 FL (7.0-11.0); PLATELET COUNT 544 TH/MM3 (150-450); RED BLOOD COUNT 4.22 MIL/MM3 (4.50-5.90); RED CELL DISTRIBUTION WIDTH 15.5 % (11.6-17.2); WHITE BLOOD COUNT 8.4 TH/MM3 (4.0-11.0)
[2017-11-22 12:58] LABS: INTERNATIONAL NORMALIZED RATIO 1.2 RATIO; PROTHROMBIN TIME - PATIENT 12.2 SEC (9.8-11.6)
--- NOTE | 2017-11-22 14:11 | HHI.HCPN ---
Reason for visit a. To assist with evaluation and management of symptoms including: dysphagia , debility b. To assist medical decision maker(s) with: better understanding of current medical conditions; weighing benefits/burdens of medical treatment options; making medical treatment decisions. Subjective/Interval History Follow up medically necessary for symptom management and further clarification of goals. Patient seen and examined in his room, no family present at this time. Patient is awake, alert, non-verbal and constantly smiling. Patient unable to follow simple commands today, but spontaneously moves all 4 extremities. Patient presents with no signs and symptoms of pain or discomfort , and distress. Vital signs stable. Remains on room air with O2 saturation in the mid 90s. Patient underwent modified barium swallow yesterday 11/21/17 and failed speech therapy recommended strict n.p.o. with PEG tube for long-term. Patient was unable to complete dysphagia exercises secondary to cognitive deficits. MRI on 11/21/17 revealed no evidence of acute intracranial pathology, no masses identified. Small area of encephalomalacia in left frontal lobe. Possible normal pressure hydrocephalus. Laboratory workup revealed WBC 8 point, hemoglobin 12.3, hematocrit 36.7, platelet count 544, ESR 45, PT 12.2, INR 1.2, APTT 43.6. Heparin infusion restarted since patient is unable to take Eliquis by mouth. Neurology discontinued statin and Keppra and recommended to wait until Saturday to reevaluate swallowing before PEG placement decision. Telephone conversation with patient`s who is the health care surrogate. Patient`s son Rene Morales updated on patient`s current medical status. Provided him with a brochure that explains stages of dementia. Updated on patient's medical status, results for modified barium swallow, and that ENT was consulted. Patient`s is agreeable to insertion of a nasogastric tube while patient waits for swallow reevaluation. Goals remain aggressive. Case discussed with bedside RN Brit Mooney and Dr. Milton. . Family/friend interactions Telephone conversation with patient's , and discussion with patient's son Rene Morales . Advance Directives Living Will: Copy in medical record Health Care Surrogate: Copy in medical record Advance Directive Specifics Date completed: 10/16/14 . Health Care Surrogate(s): YOSELIN Meier [address] [place] [address] Telephone [phone] . Documented care wishes: Patient did not complete the top part of the living will only completed healthcare surrogate information. . Objective Vital Signs Date Time Temp Pulse Resp B/P (MAP) Pulse Ox O2 Delivery O2 Flow Rate FiO2 11/22/17 08:03 97.7 71 18 117/71 (86) 96 11/22/17 04:00 98.8 91 18 115/74 (88) 100 11/22/17 00:00 97.7 93 16 119/69 (86) 98 11/21/17 21:00 89 11/21/17 20:00 98.4 89 16 115/69 (84) 95 11/21/17 16:00 97.0 92 17 113/72 (86) 98 Intake & Output 11/22/17 11/22/17 07:00 19:00 Intake Total 1100 ml Balance 1100 ml IV Total 1100 ml # Voids 4 Physical Exam CONSTITUTIONAL/GENERAL: This is an elderly patient, in no apparent distress, not verbalizing. TUBES/LINES/DRAINS: PIV SKIN: No jaundice, rashes, or lesions. Ecchymoses on upper extremities. No wounds seen anteriorly. Skin temperature appropriate. Not diaphoretic. HEAD: Atraumatic. Normocephalic. EYES: Pupils equal and round and reactive. Extraocular motions intact. Fundi not examined. ENT: Hearing grossly normal. Nose without bleeding or purulent drainage. Moist oral mucosa, patient unable to open his mouth wide for assessment NECK: Trachea midline. Supple, nontender. CARDIOVASCULAR: S1-S2 normal. No JVD. Peripheral pulses symmetric. RESPIRATORY/CHEST: Symmetric, unlabored respirations.No wheezes, rales, or rhonchi. Lung sounds diminished in the bases. GASTROINTESTINAL: Abdomen soft, non-tender, nondistended. No guarding. Bowel sounds present. GENITOURINARY: Without palpable bladder distension. MUSCULOSKELETAL: Extremities without clubbing, cyanosis, or edema. No joint tenderness or effusion noted. No calf tenderness. NEUROLOGICAL: Awake, alert. Motor and sensory grossly within normal limits. Moves all extremities. PSYCHIATRIC: No obvious anxiety/depression. no apparent hallucinations or other psychotic thought process. Diagnostic Tests Laboratory Laboratory Tests Test 11/20/17 07:53 11/20/17 19:25 11/20/17 20:23 11/22/17 08:05 White Blood Count 10.3 TH/MM3 (4.0-11.0) Red Blood Count 4.62 MIL/MM3 (4.50-5.90) Hemoglobin 13.5 GM/DL (13.0-17.0) Hematocrit 40.1 % (39.0-51.0) Mean Corpuscular Volume 86.8 FL (80.0-100.0) Mean Corpuscular Hemoglobin 29.1 PG (27.0-34.0) Mean Corpuscular Hemoglobin Concent 33.6 % (32.0-36.0) Red Cell Distribution Width 15.7 % (11.6-17.2) Platelet Count 554 TH/MM3 (150-450) Mean Platelet Volume 7.5 FL (7.0-11.0) Neutrophils (%) (Auto) 68.4 % (16.0-70.0) Lymphocytes (%) (Auto) 21.1 % (9.0-44.0) Monocytes (%) (Auto) 8.5 % (0.0-8.0) Eosinophils (%) (Auto) 1.4 % (0.0-4.0) Basophils (%) (Auto) 0.6 % (0.0-2.0) Neutrophils # (Auto) 7.1 TH/MM3 (1.8-7.7) Lymphocytes # (Auto) 2.2 TH/MM3 (1.0-4.8) Monocytes # (Auto) 0.9 TH/MM3 (0-0.9) Eosinophils # (Auto) 0.1 TH/MM3 (0-0.4) Basophils # (Auto) 0.1 TH/MM3 (0-0.2) CBC Comment DIFF FINAL Differential Comment Blood Urea Nitrogen 15 MG/DL (7-18) 11 MG/DL (7-18) Creatinine 1.10 MG/DL (0.60-1.30) 0.86 MG/DL (0.60-1.30) Random Glucose 132 MG/DL (74-106) 88 MG/DL (74-106) Calcium Level 9.6 MG/DL (8.5-10.1) 9.4 MG/DL (8.5-10.1) Sodium Level 138 MEQ/L (136-145) 139 MEQ/L (136-145) Potassium Level 4.4 MEQ/L (3.5-5.1) 3.9 MEQ/L (3.5-5.1) Chloride Level 104 MEQ/L (98-107) 104 MEQ/L (98-107) Carbon Dioxide Level 25.7 MEQ/L (21.0-32.0) 23.7 MEQ/L (21.0-32.0) Anion Gap 8 MEQ/L (5-15) 11 MEQ/L (5-15) Estimat Glomerular Filtration Rate 79 ML/MIN (>89) 105 ML/MIN (>89) Blood Gas Puncture Site RT RADIAL Blood Gas Patient Temperature 98.6 Blood Gas HCO3 24 mmol/L (22-26) Blood Gas Base Excess 0.3 mmol/L (-2-2) Blood Gas Oxygen Saturation 94 % (90-100) Arterial Blood pH 7.43 (7.380-7.420) Arterial Blood Partial Pressure CO2 37 mmHg (38-42) Arterial Blood Partial Pressure O2 81 mmHg (61-120) Arterial Blood Oxygen Content 16.5 Vol % (12.0-20.0) Arterial Blood Carboxyhemoglobin 1.6 % (0-4) Arterial Blood Methemoglobin 0.7 % (0-2) Blood Gas Hemoglobin 12.4 G/DL (12.0-16.0) Oxygen Delivery Device ROOM AIR Blood Gas Inspired Oxygen 21 % Ammonia 11 MCMOL/L (11-32) Albumin 2.7 GM/DL (3.4-5.0) Phosphorus Level 3.4 MG/DL (2.5-4.9) Magnesium Level 1.7 MG/DL (1.5-2.5) Test 11/22/17 08:08 11/22/17 12:35 White Blood Count 7.2 TH/MM3 (4.0-11.0) 8.4 TH/MM3 (4.0-11.0) Red Blood Count 4.56 MIL/MM3 (4.50-5.90) 4.22 MIL/MM3 (4.50-5.90) Hemoglobin 13.2 GM/DL (13.0-17.0) 12.3 GM/DL (13.0-17.0) Hematocrit 39.3 % (39.0-51.0) 36.7 % (39.0-51.0) Mean Corpuscular Volume 86.2 FL (80.0-100.0) 87.0 FL (80.0-100.0) Mean Corpuscular Hemoglobin 29.0 PG (27.0-34.0) 29.1 PG (27.0-34.0) Mean Corpuscular Hemoglobin Concent 33.6 % (32.0-36.0) 33.5 % (32.0-36.0) Red Cell Distribution Width 15.6 % (11.6-17.2) 15.5 % (11.6-17.2) Platelet Count 585 TH/MM3 (150-450) 544 TH/MM3 (150-450) Mean Platelet Volume 7.9 FL (7.0-11.0) 7.3 FL (7.0-11.0) Neutrophils (%) (Auto) 66.6 % (16.0-70.0) Lymphocytes (%) (Auto) 23.0 % (9.0-44.0) Monocytes (%) (Auto) 7.6 % (0.0-8.0) Eosinophils (%) (Auto) 2.0 % (0.0-4.0) Basophils (%) (Auto) 0.8 % (0.0-2.0) Neutrophils # (Auto) 4.8 TH/MM3 (1.8-7.7) Lymphocytes # (Auto) 1.7 TH/MM3 (1.0-4.8) Monocytes # (Auto) 0.5 TH/MM3 (0-0.9) Eosinophils # (Auto) 0.1 TH/MM3 (0-0.4) Basophils # (Auto) 0.1 TH/MM3 (0-0.2) CBC Comment DIFF FINAL Differential Comment Erythrocyte Sedimentation Rate 45 mm/hr (0-20) C-Reactive Protein 2.20 MG/DL (0.00-0.30) Prothrombin Time 12.2 SEC (9.8-11.6) Prothromb Time International Ratio 1.2 RATIO Activated Partial Thromboplast Time 43.6 SEC (24.3-30.1) Result Diagram: 11/22/17 1235 11/22/17 0805 Imaging Last 24 hours Impressions Brain MRI 11/21/17 5575 Signed Impressions: Service Date/Time: October 12:22 - CONCLUSION: 1. No evidence of acute intracranial pathology. No masses are identified. Small area of encephalomalacia left frontal lobe 2. Possible normal pressure hydrocephalus. Correlation with clinical findings is necessary. Brody Hernandez MD Other Speech modified barium swallow (11/21/2017)-: MR. MEIER WAS SEEN FOR MODIFIED BARIUM SWALLOW, PT WITH MODERATE-SEVERE ORAL /PHARYNGEAL PHASE DYSPHAGIA WITH SEVERELY DELAYED SWALLOW, PENETRATION LEADING TO ASPIRATION WITH COUGH WITH HONEY THICK LIQUIDS VIA TSP, SEVERELY REDUCED PHARYNGEAL SENSATION , PT NOT AWARE OF SIGNIFICANT STASIS IN HYPO-PHARYNX, DELAYED COUGH WITH ASPIRATION FOR ALL CONSISTENCIES TESTED.RECOMMENDATIONS: STRICT NPO WITH PEG TUBE FOR [facility], PT UNABLE TO COMPLETE DYSPHAGIA EXERCISES 2* COGNITIVE DEFICITS . Assessment and Plan Disease Oriented Problem List: (1) Pulmonary embolism (2) Dementia (3) Sinus tachycardia (4) Seizure disorder (5) Subdural hygroma (6) Hypertension (7) GERD (gastroesophageal reflux disease) Symptom Scale: (1) Dysphagia 0-10 Scale: Unable to quantify (2) Debility 0-10 Scale: Unable to quantify Comment: Progressive . Pertinent Non-Medical Issues Psychosocial:Patient was born and raised in [place]. 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 Patient has been to his Yajaira Meier on for the past 53 years. Patient has 4 adult children, 3 sons( Rene Morales (works at [employer], Randolph Cespedes) and 1 daughter (Eve Gtz). Patient enjoys dancing. No background. Spiritual: Patient is Sabianist Legal: Designated a healthcare surrogate 2014, on the living will form. Ethical issues impacting care: None identified at this time . Important Contacts Spouse-Yajaira Meier [phone] (home) /[phone] (other) Daughter -Eve [phone] Son-Rnee Meier Jr- [phone] Son-Jerardo, Coy Son-Randolph Meier . Prognosis Mr. Velazquez is a 77-year-old with a significant past medical history of traumatic brain injury, CVA, dementia, seizure disorder, diabetes, CAD, hypertension, and GERD. Patient presented to ER via EMS on 11/05/17 after his home health nurse advised him and his family to be further evaluated for shortness of breath, cough and congestion. Clinical course complicated with extensive pulmonary emboli and superficial femoral vein thrombus, arrhythmia, dysphagia. Given ongoing comorbidities, patient remains at high risk for further complications, deterioration and decline. . Code Status: Full Code Plan PLAN: Legal decision maker: Patient has history of dementia and is not able to participate in medical decision making. Patient`s Yajaira Meier who is the Health care surrogate will make medical decisions for the patient. Goals: Aggressive CODE STATUS: Full code Neurology discontinued statin and Keppra and recommended to wait until Saturday to reevaluate swallowing before PEG placement decision. Telephone conversation with patient`s who is the health care surrogate. Patient`s son Rene Morales updated on patient`s current medical status. Provided him with a brochure that explains stages of dementia. Updated on patient's medical status, results for modified barium swallow, and that ENT was consulted. Patient`s is agreeable to insertion of a nasogastric tube while patient waits for swallow reevaluation. Goals remain aggressive. SYMPTOMS: * Dysphagia: Patient has failed swallow evaluation. Currently n.p.o. Family is faced with making a decision to have PEG tube placed. Patient underwent modified barium swallow and failed, recommended strict NPO. ENT consulted. GI consulted for possible PEG placement. Family agreeable with NGT placement in the mean time. * Debility: Patient has spent the last month between hospital and rehabilitation and family states that he has been mostly bedbound. Physical therapy consulted and recommended PT at rehab. Speech therapy also following. Physical therapy consulted and activity increased to OOB with assistance. No recommendations. Palliative care will continue to follow the patient during hospital course as condition evolves, to assist patient/decision-maker with understanding of their medical conditions, weighing benefits/burdens of treatment options, for clarification of goals of treatment. Additionally will assist with any symptoms of palliative concern. Attestation To help prompt me to consider important information that might be impacting today's encounter and assessment, information from prior notes written by myself or my colleagues may have been "brought forward" into today's note. My signature on this note, however, is an attestation that I personally performed the exam, history, and/or decision-making noted today, and, unless otherwise indicated, the interactions with patient, family, and staff as well as the review of records all occurred today. I also attest that the listed assessment and stated plan reflect my best clinical judgment today based on the combination of historical information, prior notes, and today's exam/ interactions. When time spent is documented, it refers only to time spent today by the signer, or if indicated, combined time spent today by collaborating physician/nurse practitioner. Shama Rahman Nov 22, 2017 14:11
--- NOTE | 2017-11-22 14:53 | PD.CONS ---
HPI History of Present Illness This is a 77 year old who was admitted to the hospital on 11/05/2017. He had symptoms of shortness of breath, nausea with some gagging, and altered mental status. Patient has a history of Alzheimer's and is currently nonverbal but awake and will smile and shake hands to verbal stimuli. Patient's current hemoglobin is 13.2, no obvious melena or hematemesis. According to the record patient failed modified barium swallow study with small amount of thicker liquid showing penetration. GI was consulted for a possible PEG tube. Patient has been seen and followed for medical management per Dr. Mccain neurology. He is readjusting medications and would like to give patient several days to reevaluate swallow before PEG tube placement. Currently patient is on Pepcid, and is receiving a heparin drip for extensive pulmonary emboli. There is currently no family in the room and patient is unable to give any of his history but he is smiling and appears pleasant with no facial grimace of any pain or discomfort. According to the record patient's family met with palliative care team. Family's wishes are full code full aggressive care stating that patient would want everything done. (Norah Sullivan) PFSH Past Medical History Per the record traumatic brain injury 2014 CVA Dementia Hypertension Seizure disorder Diabetes mellitus Coronary artery disease GERD . Past Surgical History Bilateral craniotomy Cardiac catheterization . (Norah Sullivan) Coded Allergies: No Known Allergies (Verified Allergy, Unknown, 10/29/17) Medications Administered Medications Medications (Trade) Dose Ordered Sig/Rylie Route PRN Reason Start Time Stop Time Status Last Admin Dose Admin Miscellaneous Information Patient in critical care unit? Ass... [id number] .XX 11/06/17 02:00 11/06/17 02:00 Acetaminophen (Tylenol) 325 mg Q4H PRN PO PAIN SCALE 1 TO 7 11/06/17 03:30 11/10/17 12:23 Donepezil HCl (Aricept) 2.5 mg DAILY PO 11/06/17 09:00 11/19/17 08:54 Memantine (Namenda) 10 mg DAILY PO 11/06/17 09:00 11/19/17 08:53 Multivitamins/ Minerals Therapeutic (Theragran M Tab) 1 tab DAILY PO 11/06/17 09:00 11/19/17 08:53 Metoprolol Tartrate (Lopressor) 25 mg Q12HR PO 11/06/17 10:00 11/19/17 08:54 Famotidine (Pepcid) 20 mg Q12H PO 11/07/17 20:00 11/19/17 08:53 Sennosides (Senna Liq) 8.8 mg DAILY PO 11/07/17 17:00 11/19/17 08:55 Docusate Sodium (Colace) 100 mg Q12H PO 11/07/17 18:00 11/18/17 08:25 Lactulose (Lactulose Liq) 30 ml TID PO 11/07/17 18:00 11/19/17 08:53 Insulin Detemir (Levemir Inj) 15 units HS SQ 11/13/17 21:00 11/18/17 21:39 Apixaban (Eliquis) 5 mg BID PO 11/16/17 21:00 Future Hold 11/19/17 08:54 Family History Patient has 4 adult living children . Social History Unknown (Norah Sullivan) GI Exam Vitals I&O Vital Signs Date Time Temp Pulse Resp B/P (MAP) Pulse Ox O2 Delivery O2 Flow Rate FiO2 11/22/17 12:00 97.7 91 17 112/69 (83) 96 11/22/17 08:03 97.7 71 18 117/71 (86) 96 11/22/17 04:00 98.8 91 18 115/74 (88) 100 11/22/17 00:00 97.7 93 16 119/69 (86) 98 11/21/17 21:00 89 11/21/17 20:00 98.4 89 16 115/69 (84) 95 11/21/17 16:00 97.0 92 17 113/72 (86) 98 I/O 11/21/17 11/21/17 11/21/17 11/22/17 11/22/17 11/22/17 07:00 15:00 23:00 07:00 15:00 23:00 Intake Total 100 ml 200 ml 1000 ml Balance 100 ml 200 ml 1000 ml IV Total 100 ml 200 ml 1000 ml # Voids 6 4 # Bowel Movements 2 Imaging Last Impressions Brain MRI 11/21/17 1854 Signed Impressions: Service Date/Time: October 12:22 - CONCLUSION: 1. No evidence of acute intracranial pathology. No masses are identified. Small area of encephalomalacia left frontal lobe 2. Possible normal pressure hydrocephalus. Correlation with clinical findings is necessary. Brody Hernandez MD Modified Barium Swallow 11/21/17 0000 Signed Impressions: Service Date/Time: October 00:00 - CONCLUSION: Small amount of penetration with the thicker liquid. Ezra Villagomez MD Head CT 11/20/17 0000 Signed Impressions: Service Date/Time: Monday, November 20, 2017 10:34 - CONCLUSION: 1. Stable bifrontal subacute/chronic subdural hygromas. 2. Mild central cerebral atrophy. 3. Left frontal encephalomalacia. 4. No acute infarct, acute hemorrhage, midline shift or extra axial fluid collections. 5. Mild periventricular white matter small vessel ischemic changes bilaterally. 6. Small fluid level within left maxillary sinus. 7. 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 Sabas Hook MD Chest X-Ray 11/20/17 0000 Signed Impressions: Service Date/Time: Monday, November 20, 2017 10:53 - CONCLUSION: Left hemidiaphragm remains elevated. Small faint nodule left lung is smaller than on the previous study. Ezra Villagomez MD Abdomen X-Ray 11/07/17 0000 Signed Impressions: Service Date/Time: October 15:36 - CONCLUSION: Nasogastric tube has its tip in the proximal stomach. Sabas Hook MD Lower Extremity Ultrasound 11/06/17 0000 Signed Impressions: Service Date/Time: Monday, November 06, 2017 10:42 - CONCLUSION: Non- occlusive thrombus within the midportion of the right superficial femoral vein. Sabas Hook MD CT Angiography 11/05/17 1456 Signed Impressions: Service Date/Time: Sunday, November 05, 2017 16:10 - CONCLUSION: 1. Extensive pulmonary emboli involving the right main, upper and lower lobe pulmonary arteries as well as the left upper lobe pulmonary artery. 2. Elevation of the left hemidiaphragm. 3. Posterior bibasilar atelectasis and/or infiltrates. 4. Degenerative changes throughout the thoracic spine. Sabas Hook MD Laboratory Test 11/22/17 08:05 11/22/17 08:08 11/22/17 12:35 Blood Urea Nitrogen 11 MG/DL Creatinine 0.86 MG/DL Random Glucose 88 MG/DL Albumin 2.7 GM/DL Calcium Level 9.4 MG/DL Phosphorus Level 3.4 MG/DL Magnesium Level 1.7 MG/DL Sodium Level 139 MEQ/L Potassium Level 3.9 MEQ/L Chloride Level 104 MEQ/L Carbon Dioxide Level 23.7 MEQ/L Anion Gap 11 MEQ/L Estimat Glomerular Filtration Rate 105 ML/MIN White Blood Count 7.2 TH/MM3 8.4 TH/MM3 Red Blood Count 4.56 MIL/MM3 4.22 MIL/MM3 Hemoglobin 13.2 GM/DL 12.3 GM/DL Hematocrit 39.3 % 36.7 % Mean Corpuscular Volume 86.2 FL 87.0 FL Mean Corpuscular Hemoglobin 29.0 PG 29.1 PG Mean Corpuscular Hemoglobin Concent 33.6 % 33.5 % Red Cell Distribution Width 15.6 % 15.5 % Platelet Count 585 TH/MM3 544 TH/MM3 Mean Platelet Volume 7.9 FL 7.3 FL Neutrophils (%) (Auto) 66.6 % Lymphocytes (%) (Auto) 23.0 % Monocytes (%) (Auto) 7.6 % Eosinophils (%) (Auto) 2.0 % Basophils (%) (Auto) 0.8 % Neutrophils # (Auto) 4.8 TH/MM3 Lymphocytes # (Auto) 1.7 TH/MM3 Monocytes # (Auto) 0.5 TH/MM3 Eosinophils # (Auto) 0.1 TH/MM3 Basophils # (Auto) 0.1 TH/MM3 CBC Comment DIFF FINAL Differential Comment Erythrocyte Sedimentation Rate 45 mm/hr C-Reactive Protein 2.20 MG/DL Prothrombin Time 12.2 SEC Prothromb Time International Ratio 1.2 RATIO Activated Partial Thromboplast Time 43.6 SEC Date/Time Source Procedure Growth Status 11/07/17 09:28 Blood Peripheral Aerobic Blood Culture - Final NO GROWTH IN 5 DAYS Complete 11/07/17 09:28 Blood Peripheral Anaerobic Blood Culture - Final NO GROWTH IN 5 DAYS Complete 11/06/17 16:25 Urine Catheterized Urine Legionella Antigen - Final PRESUMPTIVE NEGATIVE FOR LEGIONELLA P... Complete 11/06/17 16:25 Urine Catheterized Urine Streptococcus pneumoniae Antigen (M - Final PRESUMPTIVE NEGATIVE FOR STREPTOCOCCU... Complete Physical Examination HEENT: normocephalic; atraumatic; no jaundice. Smiling NECK: Neck is supple, no JVD, no lymphadenopathy. CHEST: Diminished breath sounds CARDIAC: Regular rate and rhythm no obvious murmur ABDOMEN: Soft, nondistended, nontender; no hepatosplenomegaly; bowel sounds are present in all four quadrants. EXTREMITIES: No lower extremity edema. SKIN: Normal; no rash; no jaundice. Turgor and failure CONDITIONER TENDER: Nonverbal, smiling and will shake hands at random (Norah Sullivan) Assessment and Plan Assessment: (1) Failure to thrive in adult ICD Codes: R62.7 - Adult failure to thrive Plan 77-year-old male with previous traumatic brain injury who came in with shortness of breath, altered mental status and has a significant history of Alzheimer's disease. Gastroenterology was consulted for possible PEG tube Neurology has changed some of patient's medicines around and will need to give him to at least Saturday to see if swallow improved any after medication adjustment if not patient will be evaluated for PEG tube placement. Patient is failed modified swallow study. There is no family present. Further discussion for possible PEG placement on Saturday should be sufficient so patient can be reevaluated Saturday for his swallow Plan Reevaluate patient Saturday for swallow Continue monitoring labs Attempt to speak to family members this weekend for their wishes of PEG tube placement. Currently palliative care has spoke to family and their wishes at this time is full code full aggressive care further Further recommendations to follow Patient seen per myself and Dr. Pierce, this note was written on his behalf (Norah Sullivan) Physician Comments Patient seen and examined Agree with above Continue with current supportive care Monitor labs Further recommendations she will depend on the hospital course Possible PEG on Saturday (Oleksandr Pierce MD) Norah Sullivan Nov 22, 2017 14:53 Oleksandr Pierce MD Nov 22, 2017 17:35
[2017-11-22] MEDS: INSULIN ASPART SUPPLEMENTAL SCALE SQ SCH ×2 (15:46→20:00)
[2017-11-22 16:00] VITALS: BP 122/71; PULSE 93; RESP 17; TEMP 98.5; O2SAT 96
--- NOTE | 2017-11-22 16:33 | RADRPT ---
EXAM DATE/TIME: 11/22/2017 16:05 [facility] COMPARISON: ABDOMEN SINGLE VIEW, November 07, 2017, 15:36. INDICATIONS : Evaluate for NG tube placement. MEDICAL HISTORY : Hypertension. seizures, alzheimer's, cad, gerd, diabetes, cva, c-diff. SURGICAL HISTORY : None. ENCOUNTER: Subsequent ACUITY: 1 day PAIN SCORE: Non-responsive. LOCATION: chest FINDINGS: Examination of the abdomen demonstrates a normal bowel gas pattern. The NG tube extends to the distal esophagus and appears to turned upon itself. No free air is identified. No organomegaly is eviden t. Osseous structures are intact. Spurring of both femoral heads. Left hemidiaphragm is elevated. CONCLUSION: No evidence of obstruction. NG tube appears to enter the distal esophagus and it coils upon itself pr ior to entering the stomach. Ezra Villagomez MD on November 22, 2017 at 16:29 Board Certified Radiologist. This report was verified electronically.
[2017-11-22] MEDS: HEPARIN-D5W 25,000 U/250 ML 250 ML IV PRN (16:40)
--- NOTE | 2017-11-22 18:28 | HHI.PR ---
Subjective Remarks Follow-up pulmonary embolus, respiratory failure. no with dysphagia. Patient seen today around noon. No acute changes. Nursing. Patient continues nonverbal. Appears comfortable. Objective Vital Signs Date Time Temp Pulse Resp B/P (MAP) Pulse Ox O2 Delivery O2 Flow Rate FiO2 11/22/17 16:00 98.5 93 17 122/71 (88) 96 11/22/17 12:00 97.7 91 17 112/69 (83) 96 11/22/17 08:03 97.7 71 18 117/71 (86) 96 11/22/17 04:00 98.8 91 18 115/74 (88) 100 11/22/17 00:00 97.7 93 16 119/69 (86) 98 11/21/17 21:00 89 11/21/17 20:00 98.4 89 16 115/69 (84) 95 I/O 11/21/17 11/21/17 11/21/17 11/22/17 11/22/17 11/22/17 07:00 15:00 23:00 07:00 15:00 23:00 Intake Total 100 ml 200 ml 1000 ml Balance 100 ml 200 ml 1000 ml IV Total 100 ml 200 ml 1000 ml # Voids 6 4 # Bowel Movements 2 Result Diagram: 11/22/17 1235 11/22/17 0805 Objective Remarks GENERAL: Patient appears to be smiling. Drooling. No intelligible speech. Makes good eye contact.no change on exam. SKIN: Warm and dry. HEAD: Normocephalic. EYES: No scleral icterus. No injection or drainage. NECK: Supple, trachea midline. No JVD.oropharynx visualized on patient yawning. No oropharyngeal erythema or white plaques. Patient is drooling, most of which is in facial hair. CARDIOVASCULAR: Regular rate and rhythm without murmurs, gallops, or rubs. RESPIRATORY: Breath sounds equal bilaterally. No accessory muscle use. GASTROINTESTINAL: Abdomen soft, non-tender, nondistended. MUSCULOSKELETAL: No cyanosis, or edema. BACK: Nontender without obvious deformity. No CVA tenderness. A/P Assessment and Plan ========11/22/17. ======= Dysphagia. Nothing by mouth. Discussed with palliative care. Family would like to pursue PEG tube. However, neurology would like to monitor off of Keppra for now. Per discussion with palliative care, have ordered NG tube with tube feeds. Appreciate nursing assistance. We'll order IV fluids for now until NG tube was placed. Pulmonary embolisms. Patient unable to tolerate by mouth xarelto. Will place back on heparin drip for now as patient may need procedures in the coming days. //Acute respiratory failure: Resolved. Patient now on room air. //Pulmonary embolism. Patient unable to tolerate by mouth xarelto. Will place back on heparin drip for now as patient may need procedures in the coming days. //Dysphagia. Patient drooling, does not appear to be tolerating liquids. Appreciate speech therapy assistance. Chest x-ray with no acute findings. CT head with stable hygromas. Consult neurology. Appreciate assistance. //Hypertension: Continue Lopressor. // Tachycardia: Improved. Continue beta-clemente. // Diabetes mellitus: Continue Levemir. Monitor Accu-Cheks and cover with sliding scale insulin. // Seizure disorder: Continue Keppra. // Dementia: Continue Aricept, Namenda. // UTI, possible pneumonia: Completed course of antibiotics. Remains afebrile. // FEN: Patient failed swallow eval. N.p.o. currently. Continue IV fluids. Discharge Planning SNF versus home with home health when medically stable. Case management assisting with DME for possible discharge home including hospital bed. palliative care following. Patient remains full code.. patient may need PEG tube. Mannie Milton MD Nov 22, 2017 18:28
[2017-11-22] MEDS ORDERED: SODIUM CHLORID 0.9% 500 ML INJ 500 ML IV ONE (18:30)
[2017-11-22 20:00] VITALS: BP 123/70; PULSE 96; RESP 16; TEMP 98; O2SAT 96
[2017-11-22] MEDS: INSULIN DETEMIR 100 UNITS/ML VIAL SQ SCH (21:00)
[2017-11-22] MEDS: D5-1/2 NS + KCL 10 MEQ INJ 1,000 ML IV SCH (22:57)
[2017-11-23] VITALS (7 sets, daily range): BP systolic 111–127; BP diastolic 65–74; PULSE 76–102; RESP 16–17; TEMP 96.5–97.9; O2SAT 95–98
[2017-11-23] MEDS: INSULIN ASPART SUPPLEMENTAL SCALE SQ SCH ×6 (01:40→20:00)
[2017-11-23 03:05] LABS: HEMATOCRIT 36.1 % (39.0-51.0); HEMOGLOBIN 11.9 GM/DL (13.0-17.0); MEAN CELL VOLUME 85.8 FL (80.0-100.0); MEAN CORPUSCULAR HEMOGLOBIN 28.3 PG (27.0-34.0); MEAN PLATELET VOLUME 7.8 FL (7.0-11.0); PLATELET COUNT 555 TH/MM3 (150-450); RED CELL DISTRIBUTION WIDTH 15.8 % (11.6-17.2); WHITE BLOOD COUNT 7.6 TH/MM3 (4.0-11.0)
[2017-11-23] MEDS: FAMOTIDINE 20 MG TAB PO SCH ×2 (08:00→20:00)
[2017-11-23] MEDS: DONEPEZIL HCL 5 MG TAB PO SCH (08:29)
[2017-11-23] MEDS: LACTULOSE SYRUP 20 GM/30 ML CUP PO SCH ×3 (08:29→15:36)
[2017-11-23] MEDS: MULTIVITAMINS/MINERALS THERAPEUTIC TAB PO SCH (08:30)
[2017-11-23] MEDS: SENNOSIDES SYRUP 8.8 MG/5 ML CUP PO SCH (08:30)
[2017-11-23] MEDS: METOPROLOL TARTRATE 25 MG TAB PO SCH ×2 (08:30→21:00)
[2017-11-23] MEDS: MEMANTINE HCL 10 MG TAB PO SCH (08:30)
[2017-11-23] MEDS: D5-1/2 NS + KCL 10 MEQ INJ 1,000 ML IV SCH ×2 (11:36→15:37)
[2017-11-23] MEDS: HEPARIN-D5W 25,000 U/250 ML 250 ML IV PRN (13:17)
--- NOTE | 2017-11-23 15:15 | HHI.PR ---
Subjective Remarks Patient seen this morning around 9 AM. No acute changes per nursing. Patient did not tolerate placement of NG tube last night. Continues on IV fluids. Patient continues nonverbal. Appears to deny pain. Objective Vital Signs Date Time Temp Pulse Resp B/P (MAP) Pulse Ox O2 Delivery O2 Flow Rate FiO2 11/23/17 12:00 97.1 81 17 111/67 (82) 97 11/23/17 12:00 98 Room Air 11/23/17 08:00 102 11/23/17 08:00 97 Room Air 11/23/17 08:00 96.5 88 17 119/65 (83) 98 11/23/17 00:00 97.9 88 16 127/74 (91) 95 11/22/17 20:00 98.0 96 16 123/70 (87) 96 11/22/17 16:00 98.5 93 17 122/71 (88) 96 I/O 11/22/17 11/22/17 11/22/17 11/23/17 11/23/17 11/23/17 06:59 14:59 22:59 06:59 14:59 22:59 Intake Total 1000 ml 0 ml 500 ml Balance 1000 ml 0 ml 500 ml Intake Oral 0 ml IV Total 1000 ml 500 ml # Voids 4 5 # Bowel Movements 2 Result Diagram: 11/23/17 0242 11/22/17 0805 Objective Remarks GENERAL: Patient appears to be smiling. Less drooling today. No intelligible speech. Makes good eye contact. Again, no change on exam. SKIN: Warm and dry. HEAD: Normocephalic. EYES: No scleral icterus. No injection or drainage. NECK: Supple, trachea midline. No JVD. CARDIOVASCULAR: Regular rate and rhythm without murmurs, gallops, or rubs. RESPIRATORY: Breath sounds equal bilaterally. No accessory muscle use. GASTROINTESTINAL: Abdomen soft, non-tender, nondistended. MUSCULOSKELETAL: No cyanosis, or edema. BACK: Nontender without obvious deformity. No CVA tenderness. A/P Assessment and Plan ========11/23/17. ======= //Dysphagia. Nothing by mouth. Discussed with palliative care. Family would like to pursue PEG tube. However, neurology would like to monitor off of Keppra for now. Per discussion with palliative care, have ordered NG tube with tube feeds. Appreciate nursing assistance. We'll order IV fluids for now until NG tube was placed. = 11/23. Continue nothing by mouth. Did not tolerate NG tube placement. Will continue on IV fluids with D5 half-normal saline. If no improvement off Keppra on Saturday, will consider PEG tube placement. Appreciate neurology, GI assistance per //Pulmonary embolisms. Patient unable to tolerate by mouth xarelto. Continue on heparin drip. //Acute respiratory failure: Resolved. Patient now on room air. //Pulmonary embolism. Patient unable to tolerate by mouth xarelto. Will place back on heparin drip for now as patient may need procedures in the coming days. //Dysphagia. Patient drooling, does not appear to be tolerating liquids. Appreciate speech therapy assistance. Chest x-ray with no acute findings. CT head with stable hygromas. Consult neurology. Appreciate assistance. //Hypertension: Continue Lopressor. // Tachycardia: Improved. Continue beta-clemente. // Diabetes mellitus: Continue Levemir. Monitor Accu-Cheks and cover with sliding scale insulin. // Seizure disorder: Continue Keppra. // Dementia: Continue Aricept, Namenda. // UTI, possible pneumonia: Completed course of antibiotics. Remains afebrile. // FEN: Patient failed swallow eval. N.p.o. currently. Continue IV fluids. Discharge Planning SNF versus home with home health when medically stable. Case management assisting with DME for possible discharge home including hospital bed. palliative care following. Patient remains full code.. patient may need PEG tube. We will need to decide on Saturday Mannie Milton MD Nov 23, 2017 15:15
[2017-11-23] MEDS: DOCUSATE SODIUM 100 MG CAP PO SCH (15:36)
--- NOTE | 2017-11-23 16:00 | HHI.GIFU ---
Subjective Remarks Resting in the bed Afebrile Hemoglobin 11.9 N.p.o. for now (Norah Sullivan) Objective Vitals I&O Vital Signs Date Time Temp Pulse Resp B/P (MAP) Pulse Ox O2 Delivery O2 Flow Rate FiO2 11/23/17 12:00 97.1 81 17 111/67 (82) 97 11/23/17 12:00 98 Room Air 11/23/17 08:00 102 11/23/17 08:00 97 Room Air 11/23/17 08:00 96.5 88 17 119/65 (83) 98 11/23/17 00:00 97.9 88 16 127/74 (91) 95 11/22/17 20:00 98.0 96 16 123/70 (87) 96 11/22/17 16:00 98.5 93 17 122/71 (88) 96 I/O 11/22/17 11/22/17 11/22/17 11/23/17 11/23/17 11/23/17 07:00 15:00 23:00 07:00 15:00 23:00 Intake Total 1000 ml 0 ml 500 ml Balance 1000 ml 0 ml 500 ml Intake Oral 0 ml IV Total 1000 ml 500 ml # Voids 4 5 # Bowel Movements 2 Laboratory Laboratory Tests Test 11/22/17 19:09 11/23/17 02:42 11/23/17 09:42 Activated Partial Thromboplast Time 27.2 80.7 70.7 White Blood Count 7.6 Red Blood Count 4.20 Hemoglobin 11.9 Hematocrit 36.1 Mean Corpuscular Volume 85.8 Mean Corpuscular Hemoglobin 28.3 Mean Corpuscular Hemoglobin Concent 33.0 Red Cell Distribution Width 15.8 Platelet Count 555 Mean Platelet Volume 7.8 Date/Time Source Procedure Growth Status 11/07/17 09:28 Blood Peripheral Aerobic Blood Culture - Final NO GROWTH IN 5 DAYS Complete 11/07/17 09:28 Blood Peripheral Anaerobic Blood Culture - Final NO GROWTH IN 5 DAYS Complete 11/06/17 16:25 Urine Catheterized Urine Legionella Antigen - Final PRESUMPTIVE NEGATIVE FOR LEGIONELLA P... Complete 11/06/17 16:25 Urine Catheterized Urine Streptococcus pneumoniae Antigen (M - Final PRESUMPTIVE NEGATIVE FOR STREPTOCOCCU... Complete Physical Exam HEENT: normocephalic; atraumatic; no jaundice. . NECK: Neck is supple CHEST: Mild rhonchi, finished breath sounds CARDIAC: S1-S2 ABDOMEN: Soft, nondistended, nontender to light palpation bowel sounds are present in all four quadrants. EXTREMITIES: No clubbing, cyanosis, or edema. SKIN: Normal; no rash; no jaundice. DIE SINKER: No obvious swallow noted (Norah Sullivan) Assessment and Plan Assessment: (1) Failure to thrive in adult ICD Codes: R62.7 - Adult failure to thrive Plan 77-year-old male with previous traumatic brain injury who came in with shortness of breath, altered mental status and has a significant history of Alzheimer's disease. Gastroenterology was consulted for possible PEG tube Neurology has changed some of patient's medicines around and will need to give him to at least Saturday to see if swallow improved any after medication adjustment if not patient will be evaluated for PEG tube placement. Patient is failed modified swallow study. There is no family present. Further discussion for possible PEG placement on Saturday should be sufficient so patient can be reevaluated Saturday for his swallow 11/23/2017, no obvious shortness of breath, no obvious change in patient's general condition. No family present. Ordered speech to re-eval swallow for any improvement Saturday before any further procedures. Possible EGD with PEG tube placement for Saturday or late Saturday afternoon after speech evaluates patient Plan Reevaluate patient Saturday for swallow, orders and computer Plan for EGD with PEG tube placement Saturday a.m., or late Saturday afternoon after speech therapy evaluate patient Continue monitoring labs Attempt to speak to family members this weekend for their wishes of PEG tube placement. Currently palliative care has spoke to family and their wishes at this time is full code full aggressive care further. No family was present today Further recommendations to follow Patient seen per myself and Dr. Polanco, this note was written on his behalf (Norah Sullivan) Plan Patient was seen and examined, agree with above note, we will plan on PEG tube placement either Saturday or Saturday depending on the results from the speech pathology (Alana Polanco MD) Norah Sullivan Nov 23, 2017 16:00 Alana Polanco MD Nov 24, 2017 09:49
[2017-11-23] MEDS: INSULIN DETEMIR 100 UNITS/ML VIAL SQ SCH (21:00)
[2017-11-24] VITALS (8 sets, daily range): BP systolic 106–122; BP diastolic 61–74; PULSE 75–91; RESP 17–18; TEMP 97.2–98.7; O2SAT 96–97
[2017-11-24] MEDS: INSULIN ASPART SUPPLEMENTAL SCALE SQ SCH ×6 (04:00→20:00)
[2017-11-24] MEDS: DOCUSATE SODIUM 100 MG CAP PO SCH ×3 (04:33→23:33)
[2017-11-24] MEDS: FAMOTIDINE 20 MG TAB PO SCH ×2 (08:00→20:00)
[2017-11-24] MEDS: SENNOSIDES SYRUP 8.8 MG/5 ML CUP PO SCH (08:04)
[2017-11-24] MEDS: DONEPEZIL HCL 5 MG TAB PO SCH (08:04)
[2017-11-24] MEDS: MEMANTINE HCL 10 MG TAB PO SCH (08:04)
[2017-11-24] MEDS: LACTULOSE SYRUP 20 GM/30 ML CUP PO SCH ×3 (08:04→17:02)
[2017-11-24] MEDS: MULTIVITAMINS/MINERALS THERAPEUTIC TAB PO SCH (08:04)
[2017-11-24] MEDS: METOPROLOL TARTRATE 25 MG TAB PO SCH ×2 (08:04→21:00)
[2017-11-24 10:47] LABS: AUTOMATED NEUTROPHIL # 4.3 TH/MM3 (1.8-7.7); BASOPHIL # 0.1 TH/MM3 (0-0.2); BASOPHIL % 0.9 % (0.0-2.0); EOSINOPHIL # 0.2 TH/MM3 (0-0.4); EOSINOPHIL % 2.8 % (0.0-4.0); HEMATOCRIT 42.4 % (39.0-51.0); HEMOGLOBIN 13.9 GM/DL (13.0-17.0); LYMPH % 30.1 % (9.0-44.0); LYMPHOCYTE # 2.2 TH/MM3 (1.0-4.8); MEAN CELL VOLUME 87.1 FL (80.0-100.0); MEAN CORPUSCULAR HEMOGLOBIN 28.6 PG (27.0-34.0); MEAN CORPUSCULAR HGB CONC 32.8 % (32.0-36.0); MEAN PLATELET VOLUME 7.9 FL (7.0-11.0); MONOCYTE # 0.6 TH/MM3 (0-0.9); NEUT % 58.2 % (16.0-70.0); PLATELET COUNT 462 TH/MM3 (150-450); RED BLOOD COUNT 4.87 MIL/MM3 (4.50-5.90); RED CELL DISTRIBUTION WIDTH 15.7 % (11.6-17.2); WHITE BLOOD COUNT 7.4 TH/MM3 (4.0-11.0)
[2017-11-24 11:08] LABS: ALBUMIN 2.9 GM/DL (3.4-5.0); BICARBONATE 25.5 MEQ/L (21.0-32.0); CALCIUM 9.3 MG/DL (8.5-10.1); CREATININE 0.96 MG/DL (0.60-1.30); MAGNESIUM 1.6 MG/DL (1.5-2.5); PHOSPHORUS 2.9 MG/DL (2.5-4.9)
[2017-11-24] MEDS: HEPARIN-D5W 25,000 U/250 ML 250 ML IV PRN (12:17)
[2017-11-24] MEDS: D5-1/2 NS + KCL 10 MEQ INJ 1,000 ML IV SCH ×2 (12:32)
--- NOTE | 2017-11-24 14:22 | HHI.GIFU ---
Subjective Remarks Pt resting in bed. Nonverbal. Smiling. Objective Vitals I&O Vital Signs Date Time Temp Pulse Resp B/P (MAP) Pulse Ox O2 Delivery O2 Flow Rate FiO2 11/24/17 12:00 97.6 80 17 106/61 (76) 97 11/24/17 08:00 97.3 76 17 111/68 (82) 97 11/24/17 04:42 97.7 85 18 114/69 (84) 97 11/24/17 04:00 82 11/24/17 00:07 80 11/24/17 00:00 97.2 80 18 122/71 (88) 96 11/23/17 20:00 77 11/23/17 20:00 97.9 76 17 114/68 (83) 98 11/23/17 16:00 96.8 81 17 111/68 (82) 98 11/23/17 15:07 87 I/O 11/23/17 11/23/17 11/23/17 11/24/17 11/24/17 11/24/17 07:00 15:00 23:00 07:00 15:00 23:00 Intake Total 500 ml 0 ml 1000 ml Balance 500 ml 0 ml 1000 ml Intake Oral 0 ml IV Total 500 ml 1000 ml # Voids 4 4 # Bowel Movements 1 0 Laboratory Laboratory Tests Test 11/23/17 17:35 11/24/17 07:25 11/24/17 09:55 Activated Partial Thromboplast Time 54.2 62.2 White Blood Count 7.4 Red Blood Count 4.87 Hemoglobin 13.9 Hematocrit 42.4 Mean Corpuscular Volume 87.1 Mean Corpuscular Hemoglobin 28.6 Mean Corpuscular Hemoglobin Concent 32.8 Red Cell Distribution Width 15.7 Platelet Count 462 Mean Platelet Volume 7.9 Neutrophils (%) (Auto) 58.2 Lymphocytes (%) (Auto) 30.1 Monocytes (%) (Auto) 8.0 Eosinophils (%) (Auto) 2.8 Basophils (%) (Auto) 0.9 Neutrophils # (Auto) 4.3 Lymphocytes # (Auto) 2.2 Monocytes # (Auto) 0.6 Eosinophils # (Auto) 0.2 Basophils # (Auto) 0.1 CBC Comment DIFF FINAL Differential Comment Blood Urea Nitrogen 4 Creatinine 0.96 Random Glucose 145 Albumin 2.9 Calcium Level 9.3 Phosphorus Level 2.9 Magnesium Level 1.6 Sodium Level 141 Potassium Level 3.7 Chloride Level 106 Carbon Dioxide Level 25.5 Anion Gap 10 Estimat Glomerular Filtration Rate 92 Date/Time Source Procedure Growth Status 11/07/17 09:28 Blood Peripheral Aerobic Blood Culture - Final NO GROWTH IN 5 DAYS Complete 11/07/17 09:28 Blood Peripheral Anaerobic Blood Culture - Final NO GROWTH IN 5 DAYS Complete 11/06/17 16:25 Urine Catheterized Urine Legionella Antigen - Final PRESUMPTIVE NEGATIVE FOR LEGIONELLA P... Complete 11/06/17 16:25 Urine Catheterized Urine Streptococcus pneumoniae Antigen (M - Final PRESUMPTIVE NEGATIVE FOR STREPTOCOCCU... Complete Imaging Last Impressions Abdomen X-Ray 11/22/17 0000 Signed Impressions: Service Date/Time: Wednesday, November 22, 2017 16:05 - CONCLUSION: No evidence of obstruction. NG tube appears to enter the distal esophagus and it coils upon itself prior to entering the stomach. Ezra Villagomez MD Brain MRI 11/21/17 1854 Signed Impressions: Service Date/Time: October 12:22 - CONCLUSION: 1. No evidence of acute intracranial pathology. No masses are identified. Small area of encephalomalacia left frontal lobe 2. Possible normal pressure hydrocephalus. Correlation with clinical findings is necessary. Brody Hernandez MD Modified Barium Swallow 11/21/17 0000 Signed Impressions: Service Date/Time: October 00:00 - CONCLUSION: Small amount of penetration with the thicker liquid. Ezra Villagomez MD Head CT 11/20/17 0000 Signed Impressions: Service Date/Time: Monday, November 20, 2017 10:34 - CONCLUSION: 1. Stable bifrontal subacute/chronic subdural hygromas. 2. Mild central cerebral atrophy. 3. Left frontal encephalomalacia. 4. No acute infarct, acute hemorrhage, midline shift or extra axial fluid collections. 5. Mild periventricular white matter small vessel ischemic changes bilaterally. 6. Small fluid level within left maxillary sinus. 7. 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 Sabas Hook MD Chest X-Ray 11/20/17 0000 Signed Impressions: Service Date/Time: Monday, November 20, 2017 10:53 - CONCLUSION: Left hemidiaphragm remains elevated. Small faint nodule left lung is smaller than on the previous study. Ezra Villagomez MD Lower Extremity Ultrasound 11/06/17 0000 Signed Impressions: Service Date/Time: Monday, November 06, 2017 10:42 - CONCLUSION: Non- occlusive thrombus within the midportion of the right superficial femoral vein. Sabas Hook MD CT Angiography 11/05/17 1456 Signed Impressions: Service Date/Time: Sunday, November 05, 2017 16:10 - CONCLUSION: 1. Extensive pulmonary emboli involving the right main, upper and lower lobe pulmonary arteries as well as the left upper lobe pulmonary artery. 2. Elevation of the left hemidiaphragm. 3. Posterior bibasilar atelectasis and/or infiltrates. 4. Degenerative changes throughout the thoracic spine. Sabas Hook MD Physical Exam HEENT: normocephalic; atraumatic; no jaundice. . CHEST: rhonchi CARDIAC: RRR ABDOMEN: Soft, nondistended, nontender to light palpation bowel sounds are present in all four quadrants. EXTREMITIES: No clubbing, cyanosis, or edema. SKIN: Normal; no rash; no jaundice. 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 Gastroenterology was consulted for possible PEG tube Neurology has changed some of patient's medicines around and will need to give him to at least Saturday to see if swallow improved any after medication adjustment if not patient will be evaluated for PEG tube placement. Patient is failed modified swallow study. There is no family present. Further discussion for possible PEG placement on Saturday should be sufficient so patient can be reevaluated Saturday per for his swallow 11/23/2017, no obvious shortness of breath, no obvious change in patient's general condition. No family present. Ordered speech to re-eval swallow for any improvement Saturday before any further procedures. Possible EGD with PEG tube placement for Saturday or late Saturday afternoon after speech evaluates patient 11/24/17 GRE[employer] CUTTER eval is pending. meanwhile pt is pleasantly confused and seems in good spirits. palliative care following, for now goals aggressive Plan await GRE[employer] CUTTER eval Plan for EGD with PEG tube placement Saturday a.m if indicated and family agrees Continue monitoring labs Further recommendations to follow pt seen by myself and Dr Roque and this note is on his behalf Alice Decker Nov 24, 2017 14:22
--- NOTE | 2017-11-24 17:20 | HHI.PR ---
Subjective Remarks Patient seen this morning around 10 AM. Patient is talking a little today, however very soft. He appears to deny pain. Again appears to deny pain. Objective Vital Signs Date Time Temp Pulse Resp B/P (MAP) Pulse Ox O2 Delivery O2 Flow Rate FiO2 11/24/17 16:00 97.6 91 17 114/74 (87) 96 11/24/17 12:00 97.6 80 17 106/61 (76) 97 11/24/17 08:00 97.3 76 17 111/68 (82) 97 11/24/17 04:42 97.7 85 18 114/69 (84) 97 11/24/17 04:00 82 11/24/17 00:07 80 11/24/17 00:00 97.2 80 18 122/71 (88) 96 11/23/17 20:00 77 11/23/17 20:00 97.9 76 17 114/68 (83) 98 I/O 11/23/17 11/23/17 11/23/17 11/24/17 11/24/17 11/24/17 07:00 15:00 23:00 07:00 15:00 23:00 Intake Total 500 ml 0 ml 1000 ml Balance 500 ml 0 ml 1000 ml Intake Oral 0 ml IV Total 500 ml 1000 ml # Voids 4 4 # Bowel Movements 1 0 Result Diagram: 11/24/1795411/24/17 09 Objective Remarks GENERAL: Patient appears to be smiling. not drooling today. Speaking softly. SKIN: Warm and dry. HEAD: Normocephalic. EYES: No scleral icterus. No injection or drainage. NECK: Supple, trachea midline. No JVD. CARDIOVASCULAR: Regular rate and rhythm without murmurs, gallops, or rubs. RESPIRATORY: Breath sounds equal bilaterally. No accessory muscle use. GASTROINTESTINAL: Abdomen soft, non-tender, nondistended. MUSCULOSKELETAL: No cyanosis, or edema. BACK: Nontender without obvious deformity. No CVA tenderness. A/P Assessment and Plan ========11/23/17. ======= //Dysphagia. Nothing by mouth. Discussed with palliative care. Family would like to pursue PEG tube. However, neurology would like to monitor off of Keppra for now. Per discussion with palliative care, have ordered NG tube with tube feeds. Appreciate nursing assistance. We'll order IV fluids for now until NG tube was placed. = 11/23. Continue nothing by mouth. Did not tolerate NG tube placement. Will continue on IV fluids with D5 half-normal saline. If no improvement off Keppra on Saturday, will consider PEG tube placement. Appreciate neurology, GI assistance per =11/24. Talking a little, however very soft. We will reassess tomorrow off of Keppra. Appreciate neurology assistance. //Pulmonary embolisms. Patient unable to tolerate by mouth xarelto. Continue on heparin drip. //Acute respiratory failure: Resolved. Patient now on room air. //Pulmonary embolism. Patient unable to tolerate by mouth xarelto. Will place back on heparin drip for now as patient may need procedures in the coming days. //Dysphagia. Patient drooling, does not appear to be tolerating liquids. Appreciate speech therapy assistance. Chest x-ray with no acute findings. CT head with stable hygromas. Consult neurology. Appreciate assistance. //Hypertension: Continue Lopressor. // Tachycardia: Improved. Continue beta-clemente. // Diabetes mellitus: Continue Levemir. Monitor Accu-Cheks and cover with sliding scale insulin. // Seizure disorder: Continue Keppra. // Dementia: Continue Aricept, Namenda. // UTI, possible pneumonia: Completed course of antibiotics. Remains afebrile. // FEN: Patient failed swallow eval. N.p.o. currently. Continue IV fluids. Discharge Planning SNF versus home with home health when medically stable. Case management assisting with DME for possible discharge home including hospital bed. palliative care following. Patient remains full code.. patient may need PEG tube. We will need to decide on Saturday Mannie Milton MD Nov 24, 2017 17:20
[2017-11-24] MEDS: INSULIN DETEMIR 100 UNITS/ML VIAL SQ SCH (21:00)
[2017-11-25] VITALS (8 sets, daily range): BP systolic 112–147; BP diastolic 63–90; PULSE 75–116; RESP 17–19; TEMP 97.4–98.5; O2SAT 95–97
[2017-11-25] MEDS: D5-1/2 NS + KCL 10 MEQ INJ 1,000 ML IV SCH ×2 (01:30→14:32)
[2017-11-25] MEDS: INSULIN ASPART SUPPLEMENTAL SCALE SQ SCH ×6 (04:00→20:00)
[2017-11-25 07:58] LABS: HEMATOCRIT 41.9 % (39.0-51.0); HEMOGLOBIN 14.2 GM/DL (13.0-17.0); MEAN CELL VOLUME 86.1 FL (80.0-100.0); MEAN CORPUSCULAR HEMOGLOBIN 29.1 PG (27.0-34.0); MEAN CORPUSCULAR HGB CONC 33.8 % (32.0-36.0); MEAN PLATELET VOLUME 7.6 FL (7.0-11.0); PLATELET COUNT 420 TH/MM3 (150-450); RED BLOOD COUNT 4.87 MIL/MM3 (4.50-5.90); RED CELL DISTRIBUTION WIDTH 15.9 % (11.6-17.2); WHITE BLOOD COUNT 5.8 TH/MM3 (4.0-11.0)
--- NOTE | 2017-11-25 08:11 | HHI.PR ---
Objective Vital Signs Date Time Temp Pulse Resp B/P (MAP) Pulse Ox O2 Delivery O2 Flow Rate FiO2 11/25/17 04:23 97.4 80 17 118/71 (87) 97 11/25/17 04:01 83 11/25/17 00:14 75 11/25/17 00:00 97.8 78 18 112/71 (85) 96 11/24/17 20:00 82 11/24/17 20:00 98.7 75 18 122/67 (85) 96 11/24/17 16:00 97.6 91 17 114/74 (87) 96 11/24/17 12:00 97.6 80 17 106/61 (76) 97 I/O 11/24/17 11/24/17 11/24/17 11/25/17 11/25/17 11/25/17 07:00 15:00 23:00 07:00 15:00 23:00 Intake Total 1000 ml 1000 ml Balance 1000 ml 1000 ml IV Total 1000 ml 1000 ml # Voids 4 3 5 # Bowel Movements 0 0 1 Result Diagram: 11/25/17 0732 11/24/17 0955 Objective Remarks awake alert said david moves bue not following other commands Assessment and Plan Assessment and Plan imp mri no new no change vents c/t 05/14 eeg neg failed mbs i dced the statin and the keppra i would wait until saturday and see if swallow better off these meds b4 peg placed if family wants peg oob 11/25/17 talking better wait few more days see if improves Brody Fong MD Nov 25, 2017 08:11
[2017-11-25] MEDS: SENNOSIDES SYRUP 8.8 MG/5 ML CUP PO SCH (09:00)
[2017-11-25] MEDS: METOPROLOL TARTRATE 25 MG TAB PO SCH ×2 (09:00→22:27)
--- NOTE | 2017-11-25 11:49 | HHI.PR ---
Subjective Remarks Patient reportedly passed swallow evaluation this morning. Upon my exam patient is sitting up in bed, smiling, talking softly, however he is drooling. He denies any pain. Discussed with at bedside. Objective Vital Signs Date Time Temp Pulse Resp B/P (MAP) Pulse Ox O2 Delivery O2 Flow Rate FiO2 11/25/17 08:00 97.8 88 18 121/63 (82) 96 11/25/17 04:23 97.4 80 17 118/71 (87) 97 11/25/17 04:01 83 11/25/17 00:14 75 11/25/17 00:00 97.8 78 18 112/71 (85) 96 11/24/17 20:00 82 11/24/17 20:00 98.7 75 18 122/67 (85) 96 11/24/17 16:00 97.6 91 17 114/74 (87) 96 11/24/17 12:00 97.6 80 17 106/61 (76) 97 I/O 11/24/17 11/24/17 11/24/17 11/25/17 11/25/17 11/25/17 07:00 15:00 23:00 07:00 15:00 23:00 Intake Total 1000 ml 1000 ml Balance 1000 ml 1000 ml IV Total 1000 ml 1000 ml # Voids 4 3 5 # Bowel Movements 0 0 1 Result Diagram: 11/25/17 0732 11/24/17 0955 Objective Remarks GENERAL: Patient appears to be smiling. Sitting up, drooling today (likely due to sitting up). Speaking softly. SKIN: Warm and dry. HEAD: Normocephalic. EYES: No scleral icterus. No injection or drainage. NECK: Supple, trachea midline. No JVD. CARDIOVASCULAR: Regular rate and rhythm without murmurs, gallops, or rubs. RESPIRATORY: Breath sounds equal bilaterally. No accessory muscle use. GASTROINTESTINAL: Abdomen soft, non-tender, nondistended. MUSCULOSKELETAL: No cyanosis, or edema. BACK: Nontender without obvious deformity. No CVA tenderness. A/P Assessment and Plan ========11/25/17. ======= //Dysphagia. Nothing by mouth. Discussed with palliative care. Family would like to pursue PEG tube. However, neurology would like to monitor off of Keppra for now. Per discussion with palliative care, have ordered NG tube with tube feeds. Appreciate nursing assistance. We'll order IV fluids for now until NG tube was placed. = 11/23. Continue nothing by mouth. Did not tolerate NG tube placement. Will continue on IV fluids with D5 half-normal saline. If no improvement off Keppra on Saturday, will consider PEG tube placement. Appreciate neurology, GI assistance per =11/24. Talking a little, however very soft. We will reassess tomorrow off of Keppra. Appreciate neurology assistance. = 11/25. Improving off of Keppra. Reconsult speech therapy. N.p.o. for now. Continue D5 fluids. Consult dietary for possible TPN. Hopefully eating by tomorrow and will not need TPN.. //Malnutrition. Consult dietary for starting TPN. Appreciate assistance. //Pulmonary embolisms. Patient unable to tolerate by mouth xarelto. Continue on heparin drip. //Acute respiratory failure: Resolved. Patient now on room air. //Pulmonary embolism. Patient unable to tolerate by mouth xarelto. Will place back on heparin drip for now as patient may need procedures in the coming days. //Dysphagia. Patient drooling, does not appear to be tolerating liquids. Appreciate speech therapy assistance. Chest x-ray with no acute findings. CT head with stable hygromas. Consult neurology. Appreciate assistance. //Hypertension: Continue Lopressor. // Tachycardia: Improved. Continue beta-clemente. // Diabetes mellitus: Continue Levemir. Monitor Accu-Cheks and cover with sliding scale insulin. // Seizure disorder: Holding off on Keppra due to dysphagia. Appreciate neurology assistance. // Dementia: Continue Aricept, Namenda. // UTI, possible pneumonia: Completed course of antibiotics. Remains afebrile. // FEN: Patient failed swallow eval. N.p.o. currently. Continue IV fluids. Discharge Planning SNF versus home with home health when medically stable. Case management assisting with DME for possible discharge home including hospital bed. palliative care following. Patient remains full code.Swallowing improving hopefully cleared by speech for diet.. Mannie Milton MD Nov 25, 2017 11:49
[2017-11-25] MEDS: LACTULOSE SYRUP 20 GM/30 ML CUP PO SCH ×3 (13:00→17:36)
--- NOTE | 2017-11-25 13:52 | HHI.GIFU ---
Subjective Remarks Sitting up in the bed 90 Smiling, responsive speech is mildly garbled Family member present Afebrile No facial grimace to any type of pain (Norah Slulivan) Objective Vitals I&O Vital Signs Date Time Temp Pulse Resp B/P (MAP) Pulse Ox O2 Delivery O2 Flow Rate FiO2 11/25/17 12:00 97.9 99 18 147/80 (102) 97 11/25/17 08:00 97.8 88 18 121/63 (82) 96 11/25/17 04:23 97.4 80 17 118/71 (87) 97 11/25/17 04:01 83 11/25/17 00:14 75 11/25/17 00:00 97.8 78 18 112/71 (85) 96 11/24/17 20:00 82 11/24/17 20:00 98.7 75 18 122/67 (85) 96 11/24/17 16:00 97.6 91 17 114/74 (87) 96 I/O 11/24/17 11/24/17 11/24/17 11/25/17 11/25/17 11/25/17 07:00 15:00 23:00 07:00 15:00 23:00 Intake Total 1000 ml 1000 ml Balance 1000 ml 1000 ml IV Total 1000 ml 1000 ml # Voids 4 3 5 # Bowel Movements 0 0 1 Laboratory Laboratory Tests Test 11/25/17 07:32 White Blood Count 5.8 Red Blood Count 4.87 Hemoglobin 14.2 Hematocrit 41.9 Mean Corpuscular Volume 86.1 Mean Corpuscular Hemoglobin 29.1 Mean Corpuscular Hemoglobin Concent 33.8 Red Cell Distribution Width 15.9 Platelet Count 420 Mean Platelet Volume 7.6 Activated Partial Thromboplast Time 67.6 Date/Time Source Procedure Growth Status 11/07/17 09:28 Blood Peripheral Aerobic Blood Culture - Final NO GROWTH IN 5 DAYS Complete 11/07/17 09:28 Blood Peripheral Anaerobic Blood Culture - Final NO GROWTH IN 5 DAYS Complete 11/24/17 23:50 Stool Stool Stool Occult Blood ([facility]ARTA) - Final HEMOCCULT NEGATIVE Complete 11/06/17 16:25 Urine Catheterized Urine Legionella Antigen - Final PRESUMPTIVE NEGATIVE FOR LEGIONELLA P... Complete 11/06/17 16:25 Urine Catheterized Urine Streptococcus pneumoniae Antigen (M - Final PRESUMPTIVE NEGATIVE FOR STREPTOCOCCU... Complete Imaging Last Impressions Abdomen X-Ray 11/22/17 0000 Signed Impressions: Service Date/Time: Wednesday, November 22, 2017 16:05 - CONCLUSION: No evidence of obstruction. NG tube appears to enter the distal esophagus and it coils upon itself prior to entering the stomach. Ezra Villagomez MD Brain MRI 11/21/17 1854 Signed Impressions: Service Date/Time: October 12:22 - CONCLUSION: 1. No evidence of acute intracranial pathology. No masses are identified. Small area of encephalomalacia left frontal lobe 2. Possible normal pressure hydrocephalus. Correlation with clinical findings is necessary. Brody Hernandez MD Modified Barium Swallow 11/21/17 0000 Signed Impressions: Service Date/Time: October 00:00 - CONCLUSION: Small amount of penetration with the thicker liquid. Ezra Villagomez MD Head CT 11/20/17 0000 Signed Impressions: Service Date/Time: Monday, November 20, 2017 10:34 - CONCLUSION: 1. Stable bifrontal subacute/chronic subdural hygromas. 2. Mild central cerebral atrophy. 3. Left frontal encephalomalacia. 4. No acute infarct, acute hemorrhage, midline shift or extra axial fluid collections. 5. Mild periventricular white matter small vessel ischemic changes bilaterally. 6. Small fluid level within left maxillary sinus. 7. 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 Sabas Hook MD Chest X-Ray 11/20/17 0000 Signed Impressions: Service Date/Time: Monday, November 20, 2017 10:53 - CONCLUSION: Left hemidiaphragm remains elevated. Small faint nodule left lung is smaller than on the previous study. Ezra Villagomez MD Lower Extremity Ultrasound 11/06/17 0000 Signed Impressions: Service Date/Time: Monday, November 06, 2017 10:42 - CONCLUSION: Non- occlusive thrombus within the midportion of the right superficial femoral vein. Sabas Hook MD CT Angiography 11/05/17 1456 Signed Impressions: Service Date/Time: Sunday, November 05, 2017 16:10 - CONCLUSION: 1. Extensive pulmonary emboli involving the right main, upper and lower lobe pulmonary arteries as well as the left upper lobe pulmonary artery. 2. Elevation of the left hemidiaphragm. 3. Posterior bibasilar atelectasis and/or infiltrates. 4. Degenerative changes throughout the thoracic spine. Sabas Hook MD Physical Exam HEENT: normocephalic; atraumatic; no jaundice. No edema CHEST diminished breath sounds especially in the bases no audible rhonchi, mild drooling noted CARDIAC: RRR ABDOMEN: Soft, nondistended, nontender to light palpation bowel sounds are present in all four quadrants. EXTREMITIES: No edema. SKIN: Normal; no rash; no jaundice. 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 Gastroenterology was consulted for possible PEG tube Neurology has changed some of patient's medicines around and will need to give him to at least Saturday to see if swallow improved any after medication adjustment if not patient will be evaluated for PEG tube placement. Patient is failed modified swallow study. There is no family present. Further discussion for possible PEG placement on Saturday should be sufficient so patient can be reevaluated Saturday per for his swallow 11/23/2017, no obvious shortness of breath, no obvious change in patient's general condition. No family present. Ordered speech to re-eval swallow for any improvement Saturday before any further procedures. 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 meanwhile pt is pleasantly confused and seems in good spirits. palliative care following, for now goals aggressive 11/25/2017, according to the speech note during her modified study patient had delayed initiation to the swallow with complete filling of the vallecula, once swallow was triggered there was no penetration or aspiration seen during the study. Recommendation at this time is to continue mechanical soft diet and to use reflux precautions. This was explained to family member and patient in the room. We discussed. Pure food food and chopped very small bites of food being in the preference, with caution considerable with his liquids. If patient begins to cough while attempting to drink his liquids but will need to be thickened. Family member states she does have thickener at home. Patient is more alert today and attempting to speak and seems to know where he is. Hemoglobin 14.2 no obvious bleeding noted. Plan Supportive care. No PEG tube for now GI will sign off but please reconsult if needed Continue Pepcid Bowel regimen Reflux precautions Monitor labs pt seen by myself and Dr Polanco and this note is on his behalf (Norah Sullivan) Plan Patient is doing okay, tolerated and passed speech eval for swallowing, no need for PEG tube, we will sign off, follow-up as needed (Alana Polanco MD) Norah Sullivan Nov 25, 2017 13:52 Alana Polanco MD Nov 25, 2017 16:10
[2017-11-25] MEDS: DONEPEZIL HCL 5 MG TAB PO SCH (14:24)
[2017-11-25] MEDS: FAMOTIDINE 20 MG TAB PO SCH ×2 (14:25→17:35)
[2017-11-25] MEDS: MEMANTINE HCL 10 MG TAB PO SCH (14:26)
[2017-11-25] MEDS: MULTIVITAMINS/MINERALS THERAPEUTIC TAB PO SCH (14:27)
[2017-11-25 14:36] LABS: INTERNATIONAL NORMALIZED RATIO 1.2 RATIO; PROTHROMBIN TIME - PATIENT 12.2 SEC (9.8-11.6)
[2017-11-25] MEDS: HEPARIN-D5W 25,000 U/250 ML 250 ML IV PRN (14:37)
--- NOTE | 2017-11-25 15:11 | HHI.HCPN ---
Reason for visit a. To assist with evaluation and management of symptoms including: dysphagia , debility b. To assist medical decision maker(s) with: better understanding of current medical conditions; weighing benefits/burdens of medical treatment options; making medical treatment decisions. Subjective/Interval History Follow up visit medically necessary for further clarification of goals of care. Patient seen and examined in the presence of his . Patient is more alert today, smiling and even laughing during conversation with . Patient is alert and oriented to self with confusion to time , place and situation. Patient was able to say his wifes` name and was able to tell examiner that she was his . Patient not showing any signs of pain or discomfort. 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 Patient is drooling more today. Vital signs stable. Laboratory workup today revealing WBC 5.8,Hgb 14.2, Hct 41.9 , plt 40, Potassium 3.7, BUN/Creat 4/0.96, random glucose 145, albumin 2.9, PT 12.2, INR 1.2, APTT 32.2. Patient remains on heparin infusion. Patient reevaluated by speech therapy today, passed swallow evaluation and ST recommended puree diet and honey consistency thickened fluids. Discussed at length with patient`s , patient`s medical condition and anticipatory guidance regarding dementia progression. Discussed an option of transitioning to hospice in the future if patient`s medical condition worsens and when family no longer desiring pursuing aggressive treatment. At this time family would like to continue with aggressive treatment and are hoping patient will get better and be discharged home. Patient`s appreciative of information provided. . Family/friend interactions Patient`s at bedside. . Advance Directives Living Will: Copy in medical record Health Care Surrogate: Copy in medical record Advance Directive Specifics Date completed: 10/16/14 . Health Care Surrogate(s): YOSELIN Kurtz [address] [place] [id number] Telephone [phone] . Documented care wishes: Patient did not complete the top part of the living will only completed healthcare surrogate information. . Objective Vital Signs Date Time Temp Pulse Resp B/P (MAP) Pulse Ox O2 Delivery O2 Flow Rate FiO2 11/25/17 12:00 97.9 99 18 147/80 (102) 97 11/25/17 08:00 97.8 88 18 121/63 (82) 96 11/25/17 04:23 97.4 80 17 118/71 (87) 97 11/25/17 04:01 83 11/25/17 00:14 75 11/25/17 00:00 97.8 78 18 112/71 (85) 96 11/24/17 20:00 82 11/24/17 20:00 98.7 75 18 122/67 (85) 96 11/24/17 16:00 97.6 91 17 114/74 (87) 96 Intake & Output 11/25/17 11/25/17 07:00 19:00 Intake Total 1000 ml Balance 1000 ml IV Total 1000 ml # Voids 5 # Bowel Movements 1 Physical Exam CONSTITUTIONAL/GENERAL: This is an elderly patient, in no apparent distress, talking more today. TUBES/LINES/DRAINS: PIV SKIN: No jaundice, rashes, or lesions. Ecchymoses on upper extremities. No wounds seen anteriorly. Skin temperature appropriate. Not diaphoretic. HEAD: Atraumatic. Normocephalic. EYES: Pupils equal and round and reactive. Extraocular motions intact. Fundi not examined. ENT: Hearing grossly normal. Nose without bleeding or purulent drainage. Moist oral mucosa, drooling today. NECK: Trachea midline. Supple, nontender. CARDIOVASCULAR: S1-S2 normal. No JVD. Peripheral pulses symmetric. RESPIRATORY/CHEST: Symmetric, unlabored respirations.No wheezes, rales, or rhonchi. Lung sounds diminished in the bases. GASTROINTESTINAL: Abdomen soft, non-tender, nondistended. No guarding. Bowel sounds present. GENITOURINARY: Without palpable bladder distension. MUSCULOSKELETAL: Extremities without clubbing, cyanosis, or edema. No calf tenderness. NEUROLOGICAL: Awake, alert and oriented to self with confusion. Moves all extremities. Intermittently follows simple commands. PSYCHIATRIC: No obvious anxiety/depression. no apparent hallucinations or other psychotic thought process. Diagnostic Tests Laboratory Laboratory Tests Test 11/22/17 19:09 11/23/17 02:42 11/23/17 09:42 11/23/17 17:35 Activated Partial Thromboplast Time 27.2 SEC (24.3-30.1) 80.7 SEC (24.3-30.1) 70.7 SEC (24.3-30.1) 54.2 SEC (24.3-30.1) White Blood Count 7.6 TH/MM3 (4.0-11.0) Red Blood Count 4.20 MIL/MM3 (4.50-5.90) Hemoglobin 11.9 GM/DL (13.0-17.0) Hematocrit 36.1 % (39.0-51.0) Mean Corpuscular Volume 85.8 FL (80.0-100.0) Mean Corpuscular Hemoglobin 28.3 PG (27.0-34.0) Mean Corpuscular Hemoglobin Concent 33.0 % (32.0-36.0) Red Cell Distribution Width 15.8 % (11.6-17.2) Platelet Count 555 TH/MM3 (150-450) Mean Platelet Volume 7.8 FL (7.0-11.0) Test 11/24/17 07:25 11/24/17 09:55 11/25/17 07:32 11/25/17 14:15 Activated Partial Thromboplast Time 62.2 SEC (24.3-30.1) 67.6 SEC (24.3-30.1) 32.2 SEC (24.3-30.1) White Blood Count 7.4 TH/MM3 (4.0-11.0) 5.8 TH/MM3 (4.0-11.0) Red Blood Count 4.87 MIL/MM3 (4.50-5.90) 4.87 MIL/MM3 (4.50-5.90) Hemoglobin 13.9 GM/DL (13.0-17.0) 14.2 GM/DL (13.0-17.0) Hematocrit 42.4 % (39.0-51.0) 41.9 % (39.0-51.0) Mean Corpuscular Volume 87.1 FL (80.0-100.0) 86.1 FL (80.0-100.0) Mean Corpuscular Hemoglobin 28.6 PG (27.0-34.0) 29.1 PG (27.0-34.0) Mean Corpuscular Hemoglobin Concent 32.8 % (32.0-36.0) 33.8 % (32.0-36.0) Red Cell Distribution Width 15.7 % (11.6-17.2) 15.9 % (11.6-17.2) Platelet Count 462 TH/MM3 (150-450) 420 TH/MM3 (150-450) Mean Platelet Volume 7.9 FL (7.0-11.0) 7.6 FL (7.0-11.0) Neutrophils (%) (Auto) 58.2 % (16.0-70.0) Lymphocytes (%) (Auto) 30.1 % (9.0-44.0) Monocytes (%) (Auto) 8.0 % (0.0-8.0) Eosinophils (%) (Auto) 2.8 % (0.0-4.0) Basophils (%) (Auto) 0.9 % (0.0-2.0) Neutrophils # (Auto) 4.3 TH/MM3 (1.8-7.7) Lymphocytes # (Auto) 2.2 TH/MM3 (1.0-4.8) Monocytes # (Auto) 0.6 TH/MM3 (0-0.9) Eosinophils # (Auto) 0.2 TH/MM3 (0-0.4) Basophils # (Auto) 0.1 TH/MM3 (0-0.2) CBC Comment DIFF FINAL Differential Comment Blood Urea Nitrogen 4 MG/DL (7-18) Creatinine 0.96 MG/DL (0.60-1.30) Random Glucose 145 MG/DL (74-106) Albumin 2.9 GM/DL (3.4-5.0) Calcium Level 9.3 MG/DL (8.5-10.1) Phosphorus Level 2.9 MG/DL (2.5-4.9) Magnesium Level 1.6 MG/DL (1.5-2.5) Sodium Level 141 MEQ/L (136-145) Potassium Level 3.7 MEQ/L (3.5-5.1) Chloride Level 106 MEQ/L (98-107) Carbon Dioxide Level 25.5 MEQ/L (21.0-32.0) Anion Gap 10 MEQ/L (5-15) Estimat Glomerular Filtration Rate 92 ML/MIN (>89) Prothrombin Time 12.2 SEC (9.8-11.6) Prothromb Time International Ratio 1.2 RATIO Result Diagram: 11/25/17 0732 11/24/17 0955 Microbiology Microbiology Date/Time Source Procedure Growth Status 11/24/17 23:50 Stool Stool Stool Occult Blood ([facility]) - Final HEMOCCULT NEGATIVE Complete Assessment and Plan Disease Oriented Problem List: (1) Pulmonary embolism (2) Dementia (3) Sinus tachycardia (4) Seizure disorder (5) Subdural hygroma (6) Hypertension (7) GERD (gastroesophageal reflux disease) Symptom Scale: (1) Dysphagia 0-10 Scale: Unable to quantify (2) Debility 0-10 Scale: Unable to quantify Comment: Progressive . Pertinent Non-Medical Issues Psychosocial:Patient was born and raised in [place]. 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 Patient has been to his Yajaira Kurtz on for the past 53 years. Patient has 4 adult children, 3 sons( Rene Morales (works at [employer], [place], [place]) and 1 daughter (Eve Gtz). Patient enjoys dancing. No background. Spiritual: Patient is Confucianist Legal: Designated a healthcare surrogate 2014, on the living will form. Ethical issues impacting care: None identified at this time . Important Contacts Spouse-Yajaira Kurtz [phone] (home) /[phone] (other) Daughter -Eve GtzJpgynet-[phone] Son-Rene Kurtz Jr- [phone] Son-Jerardo, [place] Son-Jerardo, [place] . Prognosis Mr. Velazquez is a 77-year-old with a significant past medical history of traumatic brain injury, CVA, dementia, seizure disorder, diabetes, CAD, hypertension, and GERD. Patient presented to ER via EMS on 11/05/17 after his home health nurse advised him and his family to be further evaluated for shortness of breath, cough and congestion. Clinical course complicated with extensive pulmonary emboli and superficial femoral vein thrombus, arrhythmia, dysphagia. Given ongoing comorbidities, patient remains at high risk for further complications, deterioration and decline. . Code Status: Full Code Plan PLAN: Legal decision maker: Patient has history of dementia and is not able to participate in medical decision making. Patient`s Yajaira Kurtz who is the Health care surrogate will make medical decisions for the patient. Goals: Aggressive CODE STATUS: Full code Discussed at length with patient`s , patient`s medical condition and anticipatory guidance regarding dementia progression. Discussed an option of transitioning to hospice in the future if patient`s medical condition worsens and when family no longer desiring pursuing aggressive treatment. At this time family would like to continue with aggressive treatment and are hoping patient will get better and be discharged home. Patient`s appreciative of information provided. SYMPTOMS: * Dysphagia: Patient has failed swallow evaluation. Currently n.p.o. Family is faced with making a decision to have PEG tube placed. Patient underwent modified barium swallow and failed, recommended strict NPO. ENT consulted. GI consulted for possible PEG placement. Patient passed swallow eval today. Monitor for aspiration. * Debility: Patient has spent the last month between hospital and rehabilitation and family states that he has been mostly bedbound. Physical therapy consulted and recommended PT at rehab. Speech therapy also following. Physical therapy consulted and activity increased to OOB with assistance. PT recommended PT at home. No recommendations. Palliative care will continue to follow the patient during hospital course as condition evolves, to assist patient/decision-maker with understanding of their medical conditions, weighing benefits/burdens of treatment options, for clarification of goals of treatment. Additionally will assist with any symptoms of palliative concern. Attestation To help prompt me to consider important information that might be impacting today's encounter and assessment, information from prior notes written by myself or my colleagues may have been "brought forward" into today's note. My signature on this note, however, is an attestation that I personally performed the exam, history, and/or decision-making noted today, and, unless otherwise indicated, the interactions with patient, family, and staff as well as the review of records all occurred today. I also attest that the listed assessment and stated plan reflect my best clinical judgment today based on the combination of historical information, prior notes, and today's exam/ interactions. When time spent is documented, it refers only to time spent today by the signer, or if indicated, combined time spent today by collaborating physician/nurse practitioner. Shama Rahman Nov 25, 2017 15:11
[2017-11-25] MEDS: DOCUSATE SODIUM 100 MG CAP PO SCH (17:36)
[2017-11-25] MEDS: INSULIN DETEMIR 100 UNITS/ML VIAL SQ SCH (22:27)
[2017-11-26] VITALS (7 sets, daily range): BP systolic 113–150; BP diastolic 70–88; PULSE 82–100; RESP 16–18; TEMP 97.4–98; O2SAT 97–100
[2017-11-26] MEDS: INSULIN ASPART SUPPLEMENTAL SCALE SQ SCH ×6 (00:54→22:05)
[2017-11-26 03:52] LABS: HEMATOCRIT 38.4 % (39.0-51.0); MEAN CELL VOLUME 85.8 FL (80.0-100.0); MEAN CORPUSCULAR HGB CONC 33.9 % (32.0-36.0); MEAN PLATELET VOLUME 8.3 FL (7.0-11.0); PLATELET COUNT 466 TH/MM3 (150-450); RED BLOOD COUNT 4.47 MIL/MM3 (4.50-5.90); RED CELL DISTRIBUTION WIDTH 15.5 % (11.6-17.2); WHITE BLOOD COUNT 8.3 TH/MM3 (4.0-11.0)
[2017-11-26] MEDS: D5-1/2 NS + KCL 10 MEQ INJ 1,000 ML IV SCH ×2 (05:23→17:44)
[2017-11-26] MEDS: DOCUSATE SODIUM 100 MG CAP PO SCH ×2 (05:25→17:44)
[2017-11-26] MEDS: MULTIVITAMINS/MINERALS THERAPEUTIC TAB PO SCH (08:17)
[2017-11-26] MEDS: MEMANTINE HCL 10 MG TAB PO SCH (08:17)
[2017-11-26] MEDS: METOPROLOL TARTRATE 25 MG TAB PO SCH ×2 (08:17→20:23)
[2017-11-26] MEDS: FAMOTIDINE 20 MG TAB PO SCH ×2 (08:17→20:23)
[2017-11-26] MEDS: LACTULOSE SYRUP 20 GM/30 ML CUP PO SCH ×3 (08:18→17:44)
[2017-11-26] MEDS: DONEPEZIL HCL 5 MG TAB PO SCH (08:18)
[2017-11-26] MEDS: SENNOSIDES SYRUP 8.8 MG/5 ML CUP PO SCH (08:27)
--- NOTE | 2017-11-26 10:36 | HHI.HCPN ---
Reason for visit a. To assist with evaluation and management of symptoms including: dysphagia , debility b. To assist medical decision maker(s) with: better understanding of current medical conditions; weighing benefits/burdens of medical treatment options; making medical treatment decisions. Subjective/Interval History Follow up visit medically necessary for symptom management. Patient sitting upright in bed, has just completed eating his breakfast. Patient`s at bedside reported that she fed his most of the breakfast and today he was trying to feed himself. Patient has an intermittent cough and continues to drool. Reiterated importance of closely monitoring patient for aspiration during feedings to his . Patient always smiling and always greets with shaking hands. He is watching television and occasionally laughing. Patient able to identify his and also said her name. Patient very interactive today although he is unable to respond when asked if he was in pain. No signs of pain , discomfort or dress noted. Vital signs stable with O2 saturation is 100% on room air. Laboratory workup today revealing WBC 8.3, hemoglobin 13.0, hematocrit 38.4, platelet count 466, potassium 3.7, BUN/creatinine 4/0.96, random glucose 145, albumin 2.9. No recent imaging. Physical therapy and speech therapy following. Patient's inquiring whether her will have physical therapy today. Goals remain aggressive. . Family/friend interactions Patient`s at bedside. . Advance Directives Living Will: Copy in medical record Health Care Surrogate: Copy in medical record Advance Directive Specifics Date completed: 10/16/14 . Health Care Surrogate(s): YOSELIN Kurtz [address] [place] [address] Telephone [phone] . Documented care wishes: Patient did not complete the top part of the living will only completed healthcare surrogate information. . Objective Vital Signs Date Time Temp Pulse Resp B/P (MAP) Pulse Ox O2 Delivery O2 Flow Rate FiO2 11/26/17 08:00 98.0 91 18 123/78 (93) 100 11/26/17 04:00 92 11/26/17 04:00 97.4 82 16 130/82 (98) 100 11/26/17 00:06 96 11/26/17 00:00 97.8 97 16 143/88 (106) 100 11/25/17 22:25 Room Air 11/25/17 20:00 98.2 116 19 136/65 (88) 97 11/25/17 16:00 98.5 91 18 133/90 (104) 95 11/25/17 16:00 96 11/25/17 12:00 97.9 99 18 147/80 (102) 97 Intake & Output 11/26/17 11/26/17 07:00 19:00 Intake Total 1240 ml Balance 1240 ml Intake Oral 240 ml IV Total 1000 ml # Voids 3 # Bowel Movements 1 Physical Exam CONSTITUTIONAL/GENERAL: This is an elderly patient, sitting upright in bed, in no apparent distress, smiling and laughing today. TUBES/LINES/DRAINS: PIV SKIN: No jaundice, rashes, or lesions. Ecchymoses on upper extremities. No wounds seen anteriorly. Skin temperature appropriate. Not diaphoretic. HEAD: Atraumatic. Normocephalic. EYES: Pupils equal and round and reactive. Extraocular motions intact. Fundi not examined. ENT: Hearing grossly normal. Nose without bleeding or purulent drainage. Moist oral mucosa, drooling today. NECK: Trachea midline. Supple, nontender. CARDIOVASCULAR: S1-S2 normal. No JVD. Peripheral pulses symmetric. RESPIRATORY/CHEST: Symmetric, unlabored respirations.No wheezes, rales, or rhonchi. Lung sounds diminished in the bases. GASTROINTESTINAL: Abdomen soft, non-tender, nondistended. No guarding. Bowel sounds present. GENITOURINARY: Without palpable bladder distension. MUSCULOSKELETAL: Extremities without clubbing, cyanosis, or edema. No calf tenderness. NEUROLOGICAL: Awake, alert and oriented to self with confusion. Knows his . Moves all extremities. Following simple commands. PSYCHIATRIC: No obvious anxiety/depression. no apparent hallucinations or other psychotic thought process. Diagnostic Tests Laboratory Laboratory Tests Test 11/23/17 17:35 11/24/17 07:25 11/24/17 09:55 11/25/17 07:32 Activated Partial Thromboplast Time 54.2 SEC (24.3-30.1) 62.2 SEC (24.3-30.1) 67.6 SEC (24.3-30.1) White Blood Count 7.4 TH/MM3 (4.0-11.0) 5.8 TH/MM3 (4.0-11.0) Red Blood Count 4.87 MIL/MM3 (4.50-5.90) 4.87 MIL/MM3 (4.50-5.90) Hemoglobin 13.9 GM/DL (13.0-17.0) 14.2 GM/DL (13.0-17.0) Hematocrit 42.4 % (39.0-51.0) 41.9 % (39.0-51.0) Mean Corpuscular Volume 87.1 FL (80.0-100.0) 86.1 FL (80.0-100.0) Mean Corpuscular Hemoglobin 28.6 PG (27.0-34.0) 29.1 PG (27.0-34.0) Mean Corpuscular Hemoglobin Concent 32.8 % (32.0-36.0) 33.8 % (32.0-36.0) Red Cell Distribution Width 15.7 % (11.6-17.2) 15.9 % (11.6-17.2) Platelet Count 462 TH/MM3 (150-450) 420 TH/MM3 (150-450) Mean Platelet Volume 7.9 FL (7.0-11.0) 7.6 FL (7.0-11.0) Neutrophils (%) (Auto) 58.2 % (16.0-70.0) Lymphocytes (%) (Auto) 30.1 % (9.0-44.0) Monocytes (%) (Auto) 8.0 % (0.0-8.0) Eosinophils (%) (Auto) 2.8 % (0.0-4.0) Basophils (%) (Auto) 0.9 % (0.0-2.0) Neutrophils # (Auto) 4.3 TH/MM3 (1.8-7.7) Lymphocytes # (Auto) 2.2 TH/MM3 (1.0-4.8) Monocytes # (Auto) 0.6 TH/MM3 (0-0.9) Eosinophils # (Auto) 0.2 TH/MM3 (0-0.4) Basophils # (Auto) 0.1 TH/MM3 (0-0.2) CBC Comment DIFF FINAL Differential Comment Blood Urea Nitrogen 4 MG/DL (7-18) Creatinine 0.96 MG/DL (0.60-1.30) Random Glucose 145 MG/DL (74-106) Albumin 2.9 GM/DL (3.4-5.0) Calcium Level 9.3 MG/DL (8.5-10.1) Phosphorus Level 2.9 MG/DL (2.5-4.9) Magnesium Level 1.6 MG/DL (1.5-2.5) Sodium Level 141 MEQ/L (136-145) Potassium Level 3.7 MEQ/L (3.5-5.1) Chloride Level 106 MEQ/L (98-107) Carbon Dioxide Level 25.5 MEQ/L (21.0-32.0) Anion Gap 10 MEQ/L (5-15) Estimat Glomerular Filtration Rate 92 ML/MIN (>89) Test 11/25/17 14:15 11/25/17 22:32 11/26/17 03:13 Prothrombin Time 12.2 SEC (9.8-11.6) Prothromb Time International Ratio 1.2 RATIO Activated Partial Thromboplast Time 32.2 SEC (24.3-30.1) 58.1 SEC (24.3-30.1) 69.2 SEC (24.3-30.1) White Blood Count 8.3 TH/MM3 (4.0-11.0) Red Blood Count 4.47 MIL/MM3 (4.50-5.90) Hemoglobin 13.0 GM/DL (13.0-17.0) Hematocrit 38.4 % (39.0-51.0) Mean Corpuscular Volume 85.8 FL (80.0-100.0) Mean Corpuscular Hemoglobin 29.0 PG (27.0-34.0) Mean Corpuscular Hemoglobin Concent 33.9 % (32.0-36.0) Red Cell Distribution Width 15.5 % (11.6-17.2) Platelet Count 466 TH/MM3 (150-450) Mean Platelet Volume 8.3 FL (7.0-11.0) Result Diagram: 11/26/17 0313 11/24/17 0955 Microbiology Microbiology Date/Time Source Procedure Growth Status 11/24/17 23:50 Stool Stool Stool Occult Blood ([facility]) - Final HEMOCCULT NEGATIVE Complete Assessment and Plan Disease Oriented Problem List: (1) Pulmonary embolism (2) Dementia (3) Sinus tachycardia (4) Seizure disorder (5) Subdural hygroma (6) Hypertension (7) GERD (gastroesophageal reflux disease) Symptom Scale: (1) Dysphagia 0-10 Scale: Unable to quantify (2) Debility 0-10 Scale: Unable to quantify Comment: Progressive . Pertinent Non-Medical Issues Psychosocial:Patient was born and raised in [place]. 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 Patient has been to his Yajaira Kurtz on for the past 53 years. Patient has 4 adult children, 3 sons( Rene Morales (works at [employer], [place], [place]) and 1 daughter (Eve Gtz). Patient enjoys dancing. No background. Spiritual: Patient is Zoroastrian Legal: Designated a healthcare surrogate 2014, on the living will form. Ethical issues impacting care: None identified at this time . Important Contacts Spouse-Yajaira Kurtz [phone] (home) /[phone] (other) Daughter -Eve GtzDgzvrdq-[phone] Son-Rene Kurtz Jr- [phone] Son-Jerardo, [place] Son-Jerardo, [place] . Prognosis Mr. Velazquez is a 77-year-old with a significant past medical history of traumatic brain injury, CVA, dementia, seizure disorder, diabetes, CAD, hypertension, and GERD. Patient presented to ER via EMS on 11/05/17 after his home health nurse advised him and his family to be further evaluated for shortness of breath, cough and congestion. Clinical course complicated with extensive pulmonary emboli and superficial femoral vein thrombus, arrhythmia, dysphagia. Given ongoing comorbidities, patient remains at high risk for further complications, deterioration and decline. . Code Status: Full Code Plan PLAN: Legal decision maker: Patient has history of dementia and is not able to participate in medical decision making. Patient`s Yajaira Kurtz who is the Health care surrogate will make medical decisions for the patient. Goals: Goals remain Aggressive CODE STATUS: Full code Patient is more interactive today. Following simple commands.Patient still has confusion. Patient's inquiring whether her will have physical therapy today. Goals remain aggressive. SYMPTOMS: * Dysphagia: Patient has failed swallow evaluation. Currently n.p.o. Family is faced with making a decision to have PEG tube placed. Patient passed swallow evaluation, on puree diet and nectar consistency thick fluids . Continue to monitor for aspiration. * Debility: Patient has spent the last month between hospital and rehabilitation and family states that he has been mostly bedbound. Physical therapy consulted and recommended PT at rehab. Speech therapy also following. Physical therapy consulted and activity increased to OOB with assistance. PT recommended PT at home. No recommendations. Palliative care will continue to follow the patient during hospital course as condition evolves, to assist patient/decision-maker with understanding of their medical conditions, weighing benefits/burdens of treatment options, for clarification of goals of treatment. Additionally will assist with any symptoms of palliative concern. Attestation To help prompt me to consider important information that might be impacting today's encounter and assessment, information from prior notes written by myself or my colleagues may have been "brought forward" into today's note. My signature on this note, however, is an attestation that I personally performed the exam, history, and/or decision-making noted today, and, unless otherwise indicated, the interactions with patient, family, and staff as well as the review of records all occurred today. I also attest that the listed assessment and stated plan reflect my best clinical judgment today based on the combination of historical information, prior notes, and today's exam/ interactions. When time spent is documented, it refers only to time spent today by the signer, or if indicated, combined time spent today by collaborating physician/nurse practitioner. Shama Rahman November 26, 2017 10:36
[2017-11-26] MEDS: HEPARIN-D5W 25,000 U/250 ML 250 ML IV PRN (12:43)
[2017-11-26] MEDS: INSULIN DETEMIR 100 UNITS/ML VIAL SQ SCH (22:05)
--- NOTE | 2017-11-26 23:56 | HHI.PR ---
Subjective Remarks Patient seen this afternoon around 1 PM. Patient is eating. Appears to be eating well. Speech still somewhat limited, however he indicates that he is feeling well. Denies any pain. Objective Vital Signs Date Time Temp Pulse Resp B/P (MAP) Pulse Ox O2 Delivery O2 Flow Rate FiO2 11/26/17 20:00 97.9 100 18 150/82 (104) 97 11/26/17 16:00 97.7 91 16 113/75 (88) 99 11/26/17 12:00 98.0 90 16 122/70 (87) 100 11/26/17 08:00 98.0 91 18 123/78 (93) 100 11/26/17 04:00 92 11/26/17 04:00 97.4 82 16 130/82 (98) 100 11/26/17 00:06 96 11/26/17 00:00 97.8 97 16 143/88 (106) 100 I/O 11/26/17 11/26/17 11/26/17 11/27/17 11/27/17 11/27/17 07:00 15:00 23:00 07:00 15:00 23:00 Intake Total 1240 ml 1436 ml Balance 1240 ml 1436 ml Intake Oral 240 ml 420 ml IV Total 1000 ml 1016 ml # Voids 3 5 # Bowel Movements 1 0 Result Diagram: 11/26/17 0313 11/24/17 0955 Objective Remarks GENERAL: Patient appears to be smiling. Sitting up, eating. Speaking softly as before. SKIN: Warm and dry. HEAD: Normocephalic. EYES: No scleral icterus. No injection or drainage. NECK: Supple, trachea midline. No JVD. CARDIOVASCULAR: Regular rate and rhythm without murmurs, gallops, or rubs. RESPIRATORY: Breath sounds equal bilaterally. No accessory muscle use. GASTROINTESTINAL: Abdomen soft, non-tender, nondistended. MUSCULOSKELETAL: No cyanosis, or edema. BACK: Nontender without obvious deformity. No CVA tenderness. A/P Assessment and Plan ========11/26/17. ======= Dysphasia. Appears much improved. Continue diet as per speech therapy. If eating tomorrow, will likely be able to go to rehabilitation/SNF. Much improved off Keppra. Appreciate neurology assistance Malnutrition. Tolerating diet now. Pulmonary embolism. Continue on heparin drip for now, plan for transition to by mouth tomorrow. //Acute respiratory failure: Resolved. Patient now on room air. //Pulmonary embolism. Patient unable to tolerate by mouth xarelto. Will place back on heparin drip for now as patient may need procedures in the coming days. //Dysphagia. Patient drooling, does not appear to be tolerating liquids. Appreciate speech therapy assistance. Chest x-ray with no acute findings. CT head with stable hygromas. Consult neurology. Appreciate assistance. //Hypertension: Continue Lopressor. // Tachycardia: Improved. Continue beta-clemente. // Diabetes mellitus: Continue Levemir. Monitor Accu-Cheks and cover with sliding scale insulin. // Seizure disorder: Holding off on Keppra due to dysphagia. Appreciate neurology assistance. // Dementia: Continue Aricept, Namenda. // UTI, possible pneumonia: Completed course of antibiotics. Remains afebrile. // FEN: Patient failed swallow eval. N.p.o. currently. Continue IV fluids. Discharge Planning SNF versus home with home health when medically stable. Case management assisting with DME for possible discharge home including hospital bed. palliative care following. Patient remains full code.Swallowing improving hopefully discharge to SNF/rehabilitation in 1-2 days Mannie Milton MD November 26, 2017 23:56
[2017-11-27] VITALS (7 sets, daily range): BP systolic 110–142; BP diastolic 64–88; PULSE 76–98; RESP 15–19; TEMP 97.5–98.9; O2SAT 98–100
[2017-11-27] MEDS: INSULIN ASPART SUPPLEMENTAL SCALE SQ SCH ×6 (02:15→22:24)
[2017-11-27] MEDS: DOCUSATE SODIUM 100 MG CAP PO SCH ×2 (06:00→17:01)
[2017-11-27] MEDS: D5-1/2 NS + KCL 10 MEQ INJ 1,000 ML IV SCH (06:06)
--- NOTE | 2017-11-27 07:39 | HHI.PR ---
Objective Vital Signs Date Time Temp Pulse Resp B/P (MAP) Pulse Ox O2 Delivery O2 Flow Rate FiO2 11/27/17 04:00 76 11/27/17 04:00 97.8 92 18 126/78 (94) 98 11/27/17 00:00 81 11/27/17 00:00 98.1 98 18 123/71 (88) 98 11/26/17 20:25 Room Air 11/26/17 20:00 97.9 100 18 150/82 (104) 97 11/26/17 16:00 97.7 91 16 113/75 (88) 99 11/26/17 12:00 98.0 90 16 122/70 (87) 100 11/26/17 08:00 98.0 91 18 123/78 (93) 100 I/O 11/26/17 11/26/17 11/26/17 11/27/17 11/27/17 11/27/17 07:00 15:00 23:00 07:00 15:00 23:00 Intake Total 1240 ml 1436 ml 1000 ml Balance 1240 ml 1436 ml 1000 ml Intake Oral 240 ml 420 ml IV Total 1000 ml 1016 ml 1000 ml # Voids 3 5 4 # Bowel Movements 1 0 1 Result Diagram: 11/26/17 0313 11/24/17 0955 Objective Remarks awake alert said tessa and marjorie moves bue not following other commands Assessment and Plan Assessment and Plan imp mri no new no change vents c/t 05/14 eeg neg failed mbs i dced the statin and the keppra i would wait until saturday and see if swallow better off these meds b4 peg placed if family wants peg oob 11/25/17 talking better wait few more days see if improves oob - 11/27/17 talking slight more demented abulic now taking some po ok dc by [facility] meds fu office dr brian Mccain,Brody Catherine MD November 27, 2017 07:39
[2017-11-27] MEDS: MULTIVITAMINS/MINERALS THERAPEUTIC TAB PO SCH (08:16)
[2017-11-27] MEDS: FAMOTIDINE 20 MG TAB PO SCH ×2 (08:16→22:25)
[2017-11-27] MEDS: DONEPEZIL HCL 5 MG TAB PO SCH (08:16)
[2017-11-27] MEDS: LACTULOSE SYRUP 20 GM/30 ML CUP PO SCH ×3 (08:16→17:02)
[2017-11-27] MEDS: MEMANTINE HCL 10 MG TAB PO SCH (08:16)
[2017-11-27] MEDS: METOPROLOL TARTRATE 25 MG TAB PO SCH ×2 (08:16→22:25)
[2017-11-27] MEDS: SENNOSIDES SYRUP 8.8 MG/5 ML CUP PO SCH (08:17)
[2017-11-27 08:51] LABS: AUTOMATED NEUTROPHIL # 4.8 TH/MM3 (1.8-7.7); BASOPHIL # 0.1 TH/MM3 (0-0.2); BASOPHIL % 0.7 % (0.0-2.0); EOSINOPHIL # 0.3 TH/MM3 (0-0.4); EOSINOPHIL % 3.7 % (0.0-4.0); HEMATOCRIT 39.5 % (39.0-51.0); HEMOGLOBIN 13.3 GM/DL (13.0-17.0); LYMPH % 25.4 % (9.0-44.0); MEAN CELL VOLUME 86.1 FL (80.0-100.0); MEAN CORPUSCULAR HEMOGLOBIN 28.9 PG (27.0-34.0); MEAN CORPUSCULAR HGB CONC 33.6 % (32.0-36.0); MEAN PLATELET VOLUME 7.6 FL (7.0-11.0); MONO % 8.6 % (0.0-8.0); MONOCYTE # 0.7 TH/MM3 (0-0.9); NEUT % 61.6 % (16.0-70.0); PLATELET COUNT 430 TH/MM3 (150-450); RED BLOOD COUNT 4.59 MIL/MM3 (4.50-5.90); RED CELL DISTRIBUTION WIDTH 16.3 % (11.6-17.2); WHITE BLOOD COUNT 7.7 TH/MM3 (4.0-11.0)
[2017-11-27 09:17] LABS: ALBUMIN 2.8 GM/DL (3.4-5.0); BICARBONATE 26.4 MEQ/L (21.0-32.0); CALCIUM 9.6 MG/DL (8.5-10.1); CREATININE 0.91 MG/DL (0.60-1.30); MAGNESIUM 1.4 MG/DL (1.5-2.5); PHOSPHORUS 3.5 MG/DL (2.5-4.9)
[2017-11-27] MEDS ORDERED: MAGN400T3 PO (10:41)
[2017-11-27] MEDS ORDERED: MAGNESIUM SULFATE 1 GM PREMIX 100 ML IV ONE (10:45)
--- NOTE | 2017-11-27 11:21 | HHI.FF ---
Face to Face Verification Diagnosis: (1) CVA (cerebral vascular accident) (2) Impaired activities of daily living (3) Dysphagia Physical Therapy Order: Evaluate and Treat Occupational Therapy Order: Evaluate and Treat Speech Therapy Order: To Improve: Swallowing Home Health Nursing Order: Medical education Diabetic education Nursing assessment with vital signs Instructions: Patient will need CBC and BMP, magnesium drawn in 2 days (on 11/29/17) and faxed to primary care physician. Dr. Manjit Jiménez. Home Health Aide Order: To Assist In: Bathing and personal care Goring Cutter Order: To Evaluate: Living conditions/environment Order: To Provide: Long range planning I have seen patient Rene Kurtz on 11/27/17. My clinical findings support the need for the requested home health care services because: Deconditioned w/ increased weakness Limited ability to care for self I certify that my clinical findings support that this patient is homebound because: Unsafe to leave home unassisted Mannie Milton MD November 27, 2017 11:21
[2017-11-27] MEDS ORDERED: APIXABAN 5 MG TABLET PO ONE (17:00)
--- NOTE | 2017-11-27 22:08 | HHI.PR ---
Subjective Remarks Patient seen this morning around 9 AM. Patient says he is feeling all right. Denies any pain. I discussed with patient's over the phone this morning. Patient is in proved, tolerating diet. Still would be very difficult to take care at home, and I would recommend rehabilitation. Patient's is amenable to rehabilitation Objective Vital Signs Date Time Temp Pulse Resp B/P (MAP) Pulse Ox O2 Delivery O2 Flow Rate FiO2 11/27/17 16:00 98.6 95 19 142/88 (106) 100 11/27/17 12:00 98.9 88 17 110/64 (79) 99 11/27/17 08:00 97.6 92 16 119/79 (92) 98 11/27/17 04:00 76 11/27/17 04:00 97.8 92 18 126/78 (94) 98 11/27/17 00:00 81 11/27/17 00:00 98.1 98 18 123/71 (88) 98 I/O 11/26/17 11/26/17 11/26/17 11/27/17 11/27/17 11/27/17 07:00 15:00 23:00 07:00 15:00 23:00 Intake Total 1240 ml 1436 ml 1000 ml 320 ml Balance 1240 ml 1436 ml 1000 ml 320 ml Intake Oral 240 ml 420 ml 320 ml IV Total 1000 ml 1016 ml 1000 ml # Voids 3 5 4 3 # Bowel Movements 1 0 1 1 Result Diagram: 11/27/17 0832 11/27/17 0832 Objective Remarks GENERAL: Patient appears to be smiling. Sitting up. Speaking softly as before. SKIN: Warm and dry. HEAD: Normocephalic. EYES: No scleral icterus. No injection or drainage. NECK: Supple, trachea midline. No JVD. CARDIOVASCULAR: Regular rate and rhythm without murmurs, gallops, or rubs. RESPIRATORY: Breath sounds equal bilaterally. No accessory muscle use. GASTROINTESTINAL: Abdomen soft, non-tender, nondistended. positive bowel sounds. MUSCULOSKELETAL: No cyanosis, or edema. BACK: Nontender without obvious deformity. No CVA tenderness. A/P Assessment and Plan 5/2. //Hypomagnesemia. 1.4. Likely secondary to refeeding. Replaced. Monitor tomorrow. //Dysphasia. //Malnutrition = Much improved. Continues on honey thick liquids. Speech therapy following. Appreciate assistance //Pulmonary embolism. Off heparin drip today. Start Pradaxa. Appreciate pharmacy and nursing assistance ========11/26/17. ======= Dysphasia. Appears much improved. Continue diet as per speech therapy. If eating tomorrow, will likely be able to go to rehabilitation/SNF. Much improved off Keppra. Appreciate neurology assistance Malnutrition. Tolerating diet now. Pulmonary embolism. Continue on heparin drip for now, plan for transition to by mouth tomorrow. //Acute respiratory failure: Resolved. Patient now on room air. //Pulmonary embolism. Was managed on heparin drip. Back on Xarelto now tolerating by mouth.. //Dysphagia. much improved off of seizure meds. //Hypertension: Continue Lopressor. // Tachycardia: Improved. Continue beta-clemente. // Diabetes mellitus: Continue Levemir. Monitor Accu-Cheks and cover with sliding scale insulin. // Seizure disorder: Holding off on Keppra due to dysphagia. Appreciate neurology assistance. // Dementia: Continue Aricept, Namenda. // UTI, possible pneumonia: Completed course of antibiotics. Remains afebrile. // FEN: Patient failed swallow eval. N.p.o. currently. Continue IV fluids. Discharge Planning SNF versus home with home health when medically stable. Case management assisting with DME for possible discharge home including hospital bed. palliative care following. Patient remains full code.Swallowing improving hopefully discharge to SNF/rehabilitation in 1-2 days Mannie Milton MD November 27, 2017 22:08
[2017-11-27] MEDS: INSULIN DETEMIR 100 UNITS/ML VIAL SQ SCH (22:24)
[2017-11-28] VITALS: BP 125/78; PULSE 87; RESP 15; TEMP 97.4; O2SAT 100
[2017-11-28 04:00] VITALS: BP 130/79; PULSE 85; RESP 15; TEMP 97.7; O2SAT 100
[2017-11-28] MEDS: INSULIN ASPART SUPPLEMENTAL SCALE SQ SCH ×5 (04:00→15:21)
[2017-11-28] MEDS: DOCUSATE SODIUM 100 MG CAP PO SCH (04:33)
[2017-11-28 05:50] LABS: AUTOMATED NEUTROPHIL # 4.5 TH/MM3 (1.8-7.7); BASOPHIL % 0.4 % (0.0-2.0); EOSINOPHIL # 0.3 TH/MM3 (0-0.4); EOSINOPHIL % 3.7 % (0.0-4.0); HEMOGLOBIN 13.1 GM/DL (13.0-17.0); LYMPH % 27.8 % (9.0-44.0); LYMPHOCYTE # 2.1 TH/MM3 (1.0-4.8); MEAN CELL VOLUME 87.1 FL (80.0-100.0); MEAN CORPUSCULAR HEMOGLOBIN 29.3 PG (27.0-34.0); MEAN CORPUSCULAR HGB CONC 33.6 % (32.0-36.0); MEAN PLATELET VOLUME 7.9 FL (7.0-11.0); MONO % 8.7 % (0.0-8.0); MONOCYTE # 0.7 TH/MM3 (0-0.9); NEUT % 59.4 % (16.0-70.0); PLATELET COUNT 410 TH/MM3 (150-450); RED BLOOD COUNT 4.49 MIL/MM3 (4.50-5.90); RED CELL DISTRIBUTION WIDTH 16.4 % (11.6-17.2); WHITE BLOOD COUNT 7.5 TH/MM3 (4.0-11.0)
[2017-11-28 06:11] LABS: ALBUMIN 2.8 GM/DL (3.4-5.0); BICARBONATE 29.6 MEQ/L (21.0-32.0); CALCIUM 9.3 MG/DL (8.5-10.1); CREATININE 1.08 MG/DL (0.60-1.30); MAGNESIUM 1.7 MG/DL (1.5-2.5)
[2017-11-28 06:12] LABS: PHOSPHORUS 3.9 MG/DL (2.5-4.9)
[2017-11-28] MEDS ORDERED: APIXABAN 5 MG TABLET PO SCH (07:30)
[2017-11-28 08:00] VITALS: BP 98/57; PULSE 87; RESP 19; TEMP 98.2; O2SAT 98
[2017-11-28] MEDS: D5-1/2 NS + KCL 10 MEQ INJ 1,000 ML IV SCH (08:11)
[2017-11-28] MEDS: DONEPEZIL HCL 5 MG TAB PO SCH (08:12)
[2017-11-28] MEDS: MEMANTINE HCL 10 MG TAB PO SCH (08:13)
[2017-11-28] MEDS: MULTIVITAMINS/MINERALS THERAPEUTIC TAB PO SCH (08:13)
[2017-11-28] MEDS: FAMOTIDINE 20 MG TAB PO SCH (08:13)
[2017-11-28] MEDS: SENNOSIDES SYRUP 8.8 MG/5 ML CUP PO SCH (08:14)
[2017-11-28] MEDS: LACTULOSE SYRUP 20 GM/30 ML CUP PO SCH ×2 (08:14→13:42)
[2017-11-28] MEDS: METOPROLOL TARTRATE 25 MG TAB PO SCH (08:15)
[2017-11-28 12:00] VITALS: BP 95/59; PULSE 90; RESP 17; TEMP 98.7; O2SAT 96
[2017-11-28] MEDS ORDERED: METO25TA3 PO (12:16)
[2017-11-28 12:19] VITALS: BP 107/65
[2017-11-28] MEDS ORDERED: APIX5TAB PO (15:20)
--- NOTE | 2017-11-28 15:27 | HHI.PR ---
Subjective Remarks Patient seen this morning. Ate his whole breakfast. Smiling, denies pain. Objective Vital Signs Date Time Temp Pulse Resp B/P (MAP) Pulse Ox O2 Delivery O2 Flow Rate FiO2 11/28/17 12:19 107/65 (79) 11/28/17 12:00 98.7 90 17 95/59 (71) 96 11/28/17 08:00 98.2 87 19 98/57 (71) 98 11/28/17 08:00 Blow By 11/28/17 04:00 97.7 85 15 130/79 (96) 100 11/28/17 00:00 97.4 87 15 125/78 (94) 100 11/27/17 23:00 87 11/27/17 20:00 Room Air 11/27/17 20:00 82 11/27/17 20:00 97.5 88 15 131/77 (95) 100 11/27/17 16:00 98.6 95 19 142/88 (106) 100 I/O 11/27/17 11/27/17 11/27/17 11/28/17 11/28/17 11/28/17 07:00 15:00 23:00 07:00 15:00 23:00 Intake Total 1000 ml 320 ml 0 ml Balance 1000 ml 320 ml 0 ml Intake Oral 320 ml 0 ml IV Total 1000 ml # Voids 4 3 1 # Bowel Movements 1 1 0 Result Diagram: 11/28/17 0459 11/28/17 0459 Objective Remarks GENERAL: Patient appears to be smiling. Sitting up. Speaking softly as before. No significant change on exam. SKIN: Warm and dry. HEAD: Normocephalic. EYES: No scleral icterus. No injection or drainage. NECK: Supple, trachea midline. No JVD. CARDIOVASCULAR: Regular rate and rhythm without murmurs, gallops, or rubs. RESPIRATORY: Breath sounds equal bilaterally. No accessory muscle use. GASTROINTESTINAL: Abdomen soft, non-tender, nondistended. positive bowel sounds. MUSCULOSKELETAL: No cyanosis, or edema. Right heel with some tenderness upon flexion. Chronic contractures bilaterally. Will order boots BACK: Nontender without obvious deformity. No CVA tenderness. A/P Assessment and Plan 11/28 //Magnesium 1.7 improved after replacement. Continue replacement. //Dysphasia //Malnutrition -Discussed again with speech therapy. Patient doing well with honey thick liquids, however did fail trial with nectar thick liquids. Continue honey thickened liquids. //Pulmonary embolism. Tolerating Pradaxa. Continue //Slight irritation to posterior Achilles tendon on pillow. No sign of pressure ulcer. Heel protectors ordered. //Tachycardia. Chronic. Sinus. Secondary to dysreflexia. Will decrease dose of metoprolol due to borderline blood pressure. Patient asymptomatic. /. //Hypomagnesemia. 1.4. Likely secondary to refeeding. Replaced. Monitor tomorrow. //Dysphasia. //Malnutrition = Much improved. Continues on honey thick liquids. Speech therapy following. Appreciate assistance //Pulmonary embolism. Off heparin drip today. Start Pradaxa. Appreciate pharmacy and nursing assistance ========11/26/17. ======= Dysphasia. Appears much improved. Continue diet as per speech therapy. If eating tomorrow, will likely be able to go to rehabilitation/SNF. Much improved off Keppra. Appreciate neurology assistance Malnutrition. Tolerating diet now. Pulmonary embolism. Continue on heparin drip for now, plan for transition to by mouth tomorrow. //Acute respiratory failure: Resolved. Patient now on room air. //Pulmonary embolism. Was managed on heparin drip. Back on Xarelto now tolerating by mouth.. //Dysphagia. much improved off of seizure meds. //Hypertension: Continue Lopressor. // Tachycardia: Improved. Continue beta-clemente. // Diabetes mellitus: Continue Levemir. Monitor Accu-Cheks and cover with sliding scale insulin. // Seizure disorder: Holding off on Keppra due to dysphagia. Appreciate neurology assistance. // Dementia: Continue Aricept, Namenda. // UTI, possible pneumonia: Completed course of antibiotics. Remains afebrile. // FEN: Pured diet with honey thick liquids Discharge Planning Discharge to SNF/rehabilitation. Mannie Milton MD November 28, 2017 15:27
--- NOTE | 2017-11-28 15:28 | HHI.DS ---
Discharge Summary Admission Date Nov 05, 2017 at 17:35 Discharge Date: November 28, 2017 Admitting Diagnosis PULMONARY EMBOLI (1) Metabolic encephalopathy ICD Code: G93.41 - Metabolic encephalopathy (2) Pulmonary embolism ICD Code: I26.99 - Other pulmonary embolism without acute cor pulmonale Status: Acute Procedures None Brief History - From Admission 77-year-old -[place] male patient presents to the emergency department from [facility] for shortness of breath. and son states that patient was recently discharged from the hospital, but they do not feel like he was ready to come home. He was sent from home to ER by his home health nurse for shortness of breath that the family describes as being cough and congested. He was given a DuoNeb and albuterol in route by EMS. They reported O2 sat of 97-98 % after duoneb but high 80s/low 90s prior. Patient is demented and is not able to communicate to give a more detailed history. reports that patient has had a subjective fever. The CT angiogram performed in the emergency department shows extensive pulmonary emboli involving the right main, upper and lower lobe pulmonary arteries as well as the left upper lobe pulmonary artery. He was started on heparin drip and admitted to ICU. CBC/BMP: 11/28/17 0459 11/28/17 0459 Significant Findings Laboratory Tests Test 11/25/17 22:32 11/26/17 03:13 11/27/17 08:32 11/28/17 04:59 Activated Partial Thromboplast Time 58.1 SEC (24.3-30.1) 69.2 SEC (24.3-30.1) 65.3 SEC (24.3-30.1) Red Blood Count 4.47 MIL/MM3 (4.50-5.90) 4.49 MIL/MM3 (4.50-5.90) Hematocrit 38.4 % (39.0-51.0) Platelet Count 466 TH/MM3 (150-450) Monocytes (%) (Auto) 8.6 % (0.0-8.0) 8.7 % (0.0-8.0) Blood Urea Nitrogen 3 MG/DL (7-18) 5 MG/DL (7-18) Random Glucose 160 MG/DL (74-106) 125 MG/DL (74-106) Albumin 2.8 GM/DL (3.4-5.0) 2.8 GM/DL (3.4-5.0) Magnesium Level 1.4 MG/DL (1.5-2.5) Estimat Glomerular Filtration Rate 81 ML/MIN (>89) Imaging Last Impressions Abdomen X-Ray 11/22/17 Signed Impressions: Service Date/Time: Wednesday, November 22, 2017 16:05 - CONCLUSION: No evidence of obstruction. NG tube appears to enter the distal esophagus and it coils upon itself prior to entering the stomach. Ezra Villagomez MD Brain MRI 11/21/171853 Signed Impressions: Service Date/Time: October 12:22 - CONCLUSION: 1. No evidence of acute intracranial pathology. No masses are identified. Small area of encephalomalacia left frontal lobe 2. Possible normal pressure hydrocephalus. Correlation with clinical findings is necessary. Brody Hernandez MD Modified Barium Swallow 11/21/17 Signed Impressions: Service Date/Time: October 00:00 - CONCLUSION: Small amount of penetration with the thicker liquid. Ezra Villagomez MD Head CT 11/20/17 Signed Impressions: Service Date/Time: Monday, November 20, 2017 10:34 - CONCLUSION: 1. Stable bifrontal subacute/chronic subdural hygromas. 2. Mild central cerebral atrophy. 3. Left frontal encephalomalacia. 4. No acute infarct, acute hemorrhage, midline shift or extra axial fluid collections. 5. Mild periventricular white matter small vessel ischemic changes bilaterally. 6. Small fluid level within left maxillary sinus. 7. 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 Sabas Hook MD Chest X-Ray 11/20/17 Signed Impressions: Service Date/Time: Monday, November 20, 2017 10:53 - CONCLUSION: Left hemidiaphragm remains elevated. Small faint nodule left lung is smaller than on the previous study. Ezra Villagomez MD Lower Extremity Ultrasound 11/06/17 Signed Impressions: Service Date/Time: Monday, November 06, 2017 10:42 - CONCLUSION: Non- occlusive thrombus within the midportion of the right superficial femoral vein. Sabas Hook MD CT Angiography 11/05/17 1456 Signed Impressions: Service Date/Time: Sunday, November 05, 2017 16:10 - CONCLUSION: 1. Extensive pulmonary emboli involving the right main, upper and lower lobe pulmonary arteries as well as the left upper lobe pulmonary artery. 2. Elevation of the left hemidiaphragm. 3. Posterior bibasilar atelectasis and/or infiltrates. 4. Degenerative changes throughout the thoracic spine. Sabas Hook MD PE at Discharge General: No acute distress. Heart: Regular rate and rhythm. No murmur. Lungs: Clear to auscultation bilaterally. No wheezes, rales, or rhonchi. Breathing is nonlabored. Abdomen: Soft, nontender, nondistended. Extremities: No lower extremity edema. Psych: Alert, nonverbal. Does not follow commands. Hospital Course / //Magnesium 1.7 improved after replacement. Continue replacement. //Dysphasia //Malnutrition -Discussed again with speech therapy. Patient doing well with honey thick liquids, however did fail trial with nectar thick liquids. Continue honey thickened liquids. //Pulmonary embolism. Tolerating Pradaxa. Continue //Slight irritation to posterior Achilles tendon on pillow. No sign of pressure ulcer. Heel protectors ordered. //Tachycardia. Chronic. Sinus. Secondary to dysreflexia. Will decrease dose of metoprolol due to borderline blood pressure. Patient asymptomatic. 5/. //Hypomagnesemia. 1.4. Likely secondary to refeeding. Replaced. Monitor tomorrow. //Dysphasia. //Malnutrition = Much improved. Continues on honey thick liquids. Speech therapy following. Appreciate assistance //Pulmonary embolism. Off heparin drip today. Start Pradaxa. Appreciate pharmacy and nursing assistance ========11/26/17. ======= Dysphasia. Appears much improved. Continue diet as per speech therapy. If eating tomorrow, will likely be able to go to rehabilitation/SNF. Much improved off Keppra. Appreciate neurology assistance Malnutrition. Tolerating diet now. Pulmonary embolism. Continue on heparin drip for now, plan for transition to by mouth tomorrow. //Acute respiratory failure: Resolved. Patient now on room air. //Pulmonary embolism. Was managed on heparin drip. Back on Xarelto now tolerating by mouth.. //Dysphagia. much improved off of seizure meds. //Hypertension: Continue Lopressor. // Tachycardia: Improved. Continue beta-clemente. // Diabetes mellitus: Continue Levemir. Monitor Accu-Cheks and cover with sliding scale insulin. // Seizure disorder: Holding off on Keppra due to dysphagia. Appreciate neurology assistance. // Dementia: Continue Aricept, Namenda. // UTI, possible pneumonia: Completed course of antibiotics. Remains afebrile. // FEN: Pured diet with honey thick liquids Discharge Planning Discharge to SNF/rehabilitation. Pt Condition on Discharge: Good Discharge Disposition: Discharge to SNF Discharge Time: > 30 minutes Discharge Instructions DIET: Follow Instructions for: Diabetic Diet Speech Therapy-Diet Recommends: Honey Thickened Liquids, Pureed Activities you can perform: Regular-No Restrictions Follow up Referrals: Neurology - 1 Year with Brody Mccain MD PCP Follow-up - 1 Week with Manjit Jiménez MD New Medications: Commode 3-in-1 (Commode 3-in-1) 1 Mis Mis EA .XX DIRECTED, #1 0 Refills Hospital Bed - Manual (Hospital Bed - Manual) 1 Ea Ea EA .XX DIRECTED, #1 Semi-electric hospital bed with therapeutic foam mattress. Magnesium (Magnesium) 400 Mg Tab 400 MG PO DAILY for Nutritional Supplement for 7 Days, #7 TAB 0 Refills Metoprolol Tartrate (Metoprolol Tartrate) 25 Mg Tab 12.5 MG PO BID for heart, #60 TAB 0 Refills Walker with Front Wheels (Walker with Front Wheels) 1 Mis Mis EA .XX DIRECTED, #1 0 Refills Wheelchair (Wheelchair) 1 Mis Mis EA .XX DIRECTED, #1 0 Refills Apixaban (Eliquis) 5 Mg Tab 5 MG PO BID for Pulmonary embolism for 30 Days, #60 TAB Continued Medications: Acetaminophen (Tylenol) 325 Mg Tab 325 MG PO Q4H PRN for PAIN SCALE 1 TO 7, TAB 0 Refills Bisacodyl Supp (Dulcolax Supp) 10 Mg Supp 10 MG RECTAL DAILY PRN for CONSTIPATION, #12 SUPP 0 Refills Donepezil HCl (Aricept) 5 Mg Tablet 2.5 MG PO DAILY for dementia, #30 TAB Insulin Aspart Inj (Novolog Inj) 1,000 Unit/10 Ml Vial 1-9 UNITS SQ ACHS for Blood Sugar Management, #10 ML 0 Refills Max dose at bedtime:( )units; sugars less than 70,(0)units; sugars 150-199,(1) unit; sugars 200-249,(3) units; sugars 250-299,(5) units; sugars 300-349,(7) units; sugars greater than 349,(9) units Insulin Detemir Inj (Levemir Flextouch Pen Inj) 300 unit/3 ML Pen 10 UNITS SQ DAILY for Blood Sugar Management, #5 PEN 0 Refills Memantine (Memantine) 10 Mg Tab 10 MG PO DAILY for Alzheimer's Dementia, TAB 0 Refills Omeprazole (Omeprazole) 20 Mg Tab 20 MG PO DAILY, #30 TAB 0 Refills Simvastatin (Zocor) 40 Mg Tab 40 MG PO HS for Cholesterol Management, #30 TAB 0 Refills Discontinued Medications: Glipizide (Glipizide) 10 Mg Tab 10 MG PO DAILY for Blood Sugar Management, #30 TAB 0 Refills Take 30 minutes before a meal Levetiracetam (Keppra) 500 Mg Tab 1000 MG PO Q12HR for Seizure Control, #60 TAB Multiple Vitamins W/ Minerals (Centrum Silver) 400 Mcg-250 Mcg Chw 1 TAB PO DAILY Oxybutynin ER 24 HR (Oxybutynin ER 24 HR) 5 Mg Tab 5 MG PO BID for Overactive Bladder, TAB 0 Refills Mannie Milton MD November 28, 2017 15:28
--- NOTE | 2017-11-28 15:45 | HHI.HCPN ---
Reason for visit a. To assist with evaluation and management of symptoms including: dysphagia , debility b. To assist medical decision maker(s) with: better understanding of current medical conditions; weighing benefits/burdens of medical treatment options; making medical treatment decisions. Subjective/Interval History Follow up visit medically necessary for symptom management. Patient is sitting up on a recliner chair in no apparent distress. in room. Patient smiling as always, alert and intermittently follows simple commands. Patient able to answer simple questions correctly. Denies pain. Patient still drooling. Patient seen by Speech therapy today and he still continues to demonstrate signs of aspiration with thin and nectar thick liquids. ST recommends to continue with puree diet and honey consistency thickened liquids. Physical therapy assessed patient today and recommends PT at rehab though patient has problems with following commands due to cognitive problem. Patient is also noted to be weak. Vital signs stable. Laboratory workup revealing WBC 7.5, hemoglobin 13.1, hematocrit 39.0, platelet count 410, potassium 4.2, BUN/creatinine 5/1.08, random glucose 125, albumin 2.8, APTT 25.7. No recent imaging. Initially family wanted patient to be discharged home with home health care but have agreed to have patient discharged to a snf facility as recommended by medical team. Goals remain aggressive. Case discussed with bedside RN Carla and case management. . Family/friend interactions Patient`s at bedside . Advance Directives Living Will: Copy in medical record Health Care Surrogate: Copy in medical record Advance Directive Specifics Date completed: 10/16/14 . Health Care Surrogate(s): YOSELIN Kurtz [address] [place] [address] Telephone [phone] . Documented care wishes: Patient did not complete the top part of the living will only completed healthcare surrogate information. . Objective Vital Signs Date Time Temp Pulse Resp B/P (MAP) Pulse Ox O2 Delivery O2 Flow Rate FiO2 11/28/17 12:19 107/65 (79) 11/28/17 12:00 98.7 90 17 95/59 (71) 96 11/28/17 08:00 98.2 87 19 98/57 (71) 98 11/28/17 08:00 Blow By 11/28/17 04:00 97.7 85 15 130/79 (96) 100 11/28/17 00:00 97.4 87 15 125/78 (94) 100 11/27/17 23:00 87 11/27/17 20:00 Room Air 11/27/17 20:00 82 11/27/17 20:00 97.5 88 15 131/77 (95) 100 11/27/17 16:00 98.6 95 19 142/88 (106) 100 Intake & Output 11/28/17 11/28/17 07:00 19:00 Intake Total 0 ml Balance 0 ml Intake Oral 0 ml # Voids 1 # Bowel Movements 0 Physical Exam CONSTITUTIONAL/GENERAL: This is an elderly patient, sitting upright in bed, in no apparent distress, smiling and laughing today. TUBES/LINES/DRAINS: PIV SKIN: No jaundice, rashes, or lesions. Ecchymoses on upper extremities. No wounds seen anteriorly. Skin temperature appropriate. Not diaphoretic. HEAD: Atraumatic. Normocephalic. EYES: Pupils equal and round and reactive. Extraocular motions intact. Fundi not examined. ENT: Hearing grossly normal. Nose without bleeding or purulent drainage. Moist oral mucosa, drooling. NECK: Trachea midline. Supple, nontender. CARDIOVASCULAR: S1-S2 normal. No JVD. Peripheral pulses symmetric. RESPIRATORY/CHEST: Symmetric, unlabored respirations.No wheezes, rales, or rhonchi. Lung sounds diminished in the bases. GASTROINTESTINAL: Abdomen soft, non-tender, nondistended. No guarding. Bowel sounds present. GENITOURINARY: Without palpable bladder distension. MUSCULOSKELETAL: Extremities without clubbing, cyanosis, or edema. No calf tenderness. NEUROLOGICAL: Awake, alert and oriented to self with confusion. Moves all extremities. Following simple commands. PSYCHIATRIC: No obvious anxiety/depression. no apparent hallucinations or other psychotic thought process. Diagnostic Tests Laboratory Laboratory Tests Test 11/25/17 22:32 11/26/17 03:13 11/27/17 08:32 11/28/17 04:59 Activated Partial Thromboplast Time 58.1 SEC (24.3-30.1) 69.2 SEC (24.3-30.1) 65.3 SEC (24.3-30.1) 25.7 SEC (24.3-30.1) White Blood Count 8.3 TH/MM3 (4.0-11.0) 7.7 TH/MM3 (4.0-11.0) 7.5 TH/MM3 (4.0-11.0) Red Blood Count 4.47 MIL/MM3 (4.50-5.90) 4.59 MIL/MM3 (4.50-5.90) 4.49 MIL/MM3 (4.50-5.90) Hemoglobin 13.0 GM/DL (13.0-17.0) 13.3 GM/DL (13.0-17.0) 13.1 GM/DL (13.0-17.0) Hematocrit 38.4 % (39.0-51.0) 39.5 % (39.0-51.0) 39.0 % (39.0-51.0) Mean Corpuscular Volume 85.8 FL (80.0-100.0) 86.1 FL (80.0-100.0) 87.1 FL (80.0-100.0) Mean Corpuscular Hemoglobin 29.0 PG (27.0-34.0) 28.9 PG (27.0-34.0) 29.3 PG (27.0-34.0) Mean Corpuscular Hemoglobin Concent 33.9 % (32.0-36.0) 33.6 % (32.0-36.0) 33.6 % (32.0-36.0) Red Cell Distribution Width 15.5 % (11.6-17.2) 16.3 % (11.6-17.2) 16.4 % (11.6-17.2) Platelet Count 466 TH/MM3 (150-450) 430 TH/MM3 (150-450) 410 TH/MM3 (150-450) Mean Platelet Volume 8.3 FL (7.0-11.0) 7.6 FL (7.0-11.0) 7.9 FL (7.0-11.0) Neutrophils (%) (Auto) 61.6 % (16.0-70.0) 59.4 % (16.0-70.0) Lymphocytes (%) (Auto) 25.4 % (9.0-44.0) 27.8 % (9.0-44.0) Monocytes (%) (Auto) 8.6 % (0.0-8.0) 8.7 % (0.0-8.0) Eosinophils (%) (Auto) 3.7 % (0.0-4.0) 3.7 % (0.0-4.0) Basophils (%) (Auto) 0.7 % (0.0-2.0) 0.4 % (0.0-2.0) Neutrophils # (Auto) 4.8 TH/MM3 (1.8-7.7) 4.5 TH/MM3 (1.8-7.7) Lymphocytes # (Auto) 2.0 TH/MM3 (1.0-4.8) 2.1 TH/MM3 (1.0-4.8) Monocytes # (Auto) 0.7 TH/MM3 (0-0.9) 0.7 TH/MM3 (0-0.9) Eosinophils # (Auto) 0.3 TH/MM3 (0-0.4) 0.3 TH/MM3 (0-0.4) Basophils # (Auto) 0.1 TH/MM3 (0-0.2) 0.0 TH/MM3 (0-0.2) CBC Comment DIFF FINAL DIFF FINAL Differential Comment Blood Urea Nitrogen 3 MG/DL (7-18) 5 MG/DL (7-18) Creatinine 0.91 MG/DL (0.60-1.30) 1.08 MG/DL (0.60-1.30) Random Glucose 160 MG/DL (74-106) 125 MG/DL (74-106) Albumin 2.8 GM/DL (3.4-5.0) 2.8 GM/DL (3.4-5.0) Calcium Level 9.6 MG/DL (8.5-10.1) 9.3 MG/DL (8.5-10.1) Phosphorus Level 3.5 MG/DL (2.5-4.9) 3.9 MG/DL (2.5-4.9) Magnesium Level 1.4 MG/DL (1.5-2.5) 1.7 MG/DL (1.5-2.5) Sodium Level 140 MEQ/L (136-145) 141 MEQ/L (136-145) Potassium Level 4.0 MEQ/L (3.5-5.1) 4.2 MEQ/L (3.5-5.1) Chloride Level 106 MEQ/L (98-107) 104 MEQ/L (98-107) Carbon Dioxide Level 26.4 MEQ/L (21.0-32.0) 29.6 MEQ/L (21.0-32.0) Anion Gap 8 MEQ/L (5-15) 7 MEQ/L (5-15) Estimat Glomerular Filtration Rate 98 ML/MIN (>89) 81 ML/MIN (>89) Result Diagram: 11/28/17 0459 11/28/17 045 Assessment and Plan Disease Oriented Problem List: (1) Pulmonary embolism (2) Dementia (3) Sinus tachycardia (4) Seizure disorder (5) Subdural hygroma (6) Hypertension (7) GERD (gastroesophageal reflux disease) Symptom Scale: (1) Dysphagia 0-10 Scale: Unable to quantify (2) Debility 0-10 Scale: Unable to quantify Comment: Progressive . Pertinent Non-Medical Issues Psychosocial:Patient was born and raised in [place]. 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 Patient has been to his Yajaira Kurtz on for the past 53 years. Patient has 4 adult children, 3 sons( Rene Morales (works at [employer], Randolph Cespedes) and 1 daughter (Eve Gtz). Patient enjoys dancing. No background. Spiritual: Patient is [employer] Legal: Designated a healthcare surrogate 2014, on the living will form. Ethical issues impacting care: None identified at this time . Important Contacts Spouse-KurtzNicka [phone] (home) /[phone] (other) Daughter -Eve GtzHzijwpg-[phone] Son-Rene Kurtz Jr- [phone] Son-Jerardo Coy Son-Randolph Kurtz . Prognosis Mr. Velazquez is a 77-year-old with a significant past medical history of traumatic brain injury, CVA, dementia, seizure disorder, diabetes, CAD, hypertension, and GERD. Patient presented to ER via EMS on 11/05/17 after his home health nurse advised him and his family to be further evaluated for shortness of breath, cough and congestion. Clinical course complicated with extensive pulmonary emboli and superficial femoral vein thrombus, arrhythmia, dysphagia. Given ongoing comorbidities, patient remains at high risk for further complications, deterioration and decline. . Code Status: Full Code Plan PLAN: Legal decision maker: Patient has history of dementia and is not able to participate in medical decision making. Patient`s Yajaira Kurtz who is the Health care surrogate will make medical decisions for the patient. Goals: Goals remain Aggressive CODE STATUS: Full code Initially family wanted patient to be discharged home with home health care but have agreed to have patient discharged to a snf facility as recommended by medical team. Goals remain aggressive. SYMPTOMS: * Dysphagia: Patient has failed swallow evaluation. Currently n.p.o. Family is faced with making a decision to have PEG tube placed. Patient passed swallow evaluation, on puree diet and nectar consistency thick fluids . Continue to monitor for aspiration. * Debility: Patient has spent the last month between hospital and rehabilitation and family states that he has been mostly bedbound. Physical therapy consulted and recommended PT at rehab. Speech therapy also following. Physical therapy consulted and activity increased to OOB with assistance. PT recommended PT at home. No recommendations. Palliative care will continue to follow the patient during hospital course as condition evolves, to assist patient/decision-maker with understanding of their medical conditions, weighing benefits/burdens of treatment options, for clarification of goals of treatment. Additionally will assist with any symptoms of palliative concern. Attestation To help prompt me to consider important information that might be impacting today's encounter and assessment, information from prior notes written by myself or my colleagues may have been "brought forward" into today's note. My signature on this note, however, is an attestation that I personally performed the exam, history, and/or decision-making noted today, and, unless otherwise indicated, the interactions with patient, family, and staff as well as the review of records all occurred today. I also attest that the listed assessment and stated plan reflect my best clinical judgment today based on the combination of historical information, prior notes, and today's exam/ interactions. When time spent is documented, it refers only to time spent today by the signer, or if indicated, combined time spent today by collaborating physician/nurse practitioner. Shama Rahman November 28, 2017 15:45
== END 2017-11-28 17:41 | DRG 175 ==
LOC: NEPD 12:57 → NEDA 17:35 → HIME 20:30 → N07B 11-18 19:12
PROVIDERS: ADMIT Internal Medicine; ATTEND Internal Medicine
DX: I26.99 Other pulmonary embolism without acute cor pulmonale (principal); J96.01 Acute respiratory failure with hypoxia; G93.41 Metabolic encephalopathy; J18.9 Pneumonia, unspecified organism; E46 Unspecified protein-calorie malnutrition; I82.411 Acute embolism and thrombosis of right femoral vein; N39.0 Urinary tract infection, site not specified; E11.65 Type 2 diabetes mellitus with hyperglycemia; R13.10 Dysphagia, unspecified; G30.9 Alzheimer's disease, unspecified; F02.80 Dementia in other diseases classified elsewhere, unspecified severity, without behavioral disturbance, psychotic disturbance, mood disturbance, and anxiety; I25.10 Atherosclerotic heart disease of native coronary artery without angina pectoris; K21.9 Gastro-esophageal reflux disease without esophagitis; I10 Essential (primary) hypertension; R62.7 Adult failure to thrive; G40.909 Epilepsy, unspecified, not intractable, without status epilepticus; R00.0 Tachycardia, unspecified; R47.02 Dysphasia; E83.42 Hypomagnesemia; I07.1 Rheumatic tricuspid insufficiency; Z86.73 Personal history of transient ischemic attack (TIA), and cerebral infarction without residual deficits; Z87.820 Personal history of traumatic brain injury; Z79.4 Long term (current) use of insulin; Z87.891 Personal history of nicotine dependence; Z78.1 Physical restraint status; Z87.440 Personal history of urinary (tract) infections
CPT/HCPCS: 36600; 70450; 70553; 71045; 71275; 74018; 74230; 76937; 80048; 80053; 80069; 81001; 82140; 82272; 82805; 82948; 83735; 83880; 84100; 84132; 84484; 85025; 85027; 85379; 85610; 85652; 85730; 86140; 87040; 87086; 87449; 87641; 93005; 93306; 93970; 94640; 94664; 95819; 96361; 96374; A9579; J1644; J1650; J1815; J1817; J1953; J2543; J3370; J3475; J3480; J7030; J7040; J7050; J7611; Q9967

== ENCOUNTER 2017-12-31 18:04 | Emergency (ER) | payer MEDICARE, OTHER ==
[~2017-12-31] VITALS: Ht 177.8 cm; Wt 58.0 kg
[~2017-12-31 18:04] MED LIST changes: +APIX5TAB PO; -CENTCHW3 PO; +COMMODE 3-IN-11 MIS; -GLIP10TA6 PO; +HOSP BED2; -LEVE500 PO; +MAGN400T3 PO; +METO25TA3 PO; -OXYB5TAB PO; +WALKER WHEELS/F1 MIS; +WHEEMIS3
[2017-12-31 18:20] VITALS: BP 106/76; PULSE 96; RESP 16; TEMP 99.9; O2SAT 100
[2017-12-31] MEDS ORDERED: SODIUM CHLORID 0.9% 500 ML INJ 500 ML IV ONE (18:30)
--- NOTE | 2017-12-31 18:37 | PD ---
HPI Chief Complaint: Altered Mental Status Time Seen by Provider: 18:28 Travel History International Travel<30 days: No Contact w/Intl Traveler<30days: No Traveled to known affect area: No History of Present Illness HPI 77-year-old male presents by ambulance for change in mentation. His blood pressure was low and he was given IV fluids. History is significantly limited from patient. PFSH Past Medical History Alzheimer's Disease: Yes Arthritis: No Asthma: No Autoimmune Disease: No Blood Disorders: No Anxiety: No Depression: No Heart Rhythm Problems: No Cancer: No Cardiac Catheterization: Yes Cardiovascular Problems: Yes High Cholesterol: No Chemotherapy: No Chest Pain: Yes Congestive Heart Failure: No COPD: No Cerebrovascular Accident: Yes Coronary Artery Disease: Yes Dementia: Yes Diabetes: Yes Diminished Hearing: No Endocrine: Yes Gastrointestinal Disorders: Yes (GERD) GERD: Yes Genitourinary: Yes (HX UTI) Hepatitis: No Hiatal Hernia: No Hypertension: Yes Immune Disorder: No Kidney Stones: No Musculoskeletal: No Neurologic: Yes (SDH, SEIZURES, ENCEPAHLOPATHY) Psychiatric: No Reproductive: No Respiratory: No Immunizations Current: Yes Migraines: No Myocardial Infarction: No Radiation Therapy: No Renal Failure: No Seizures: Yes Sickle Cell Disease: No Sleep Apnea: No Thyroid Disease: No Ulcer: No PNEUMOCCOCAL Vaccine (Year): 2 Past Surgical History Abdominal Surgery: No AICD: No Arteriovenous Shunt: No Cardiac Surgery: No Ear Surgery: No Endocrine Surgery: No Eye Surgery: No Genitourinary Surgery: No Gynecologic Surgery: No Insulin Pump: No Joint Replacement: No Neurologic Surgery: Yes (BILATERAL CRANIOTOMY) Oral Surgery: No Pacemaker: No Thoracic Surgery: No Other Surgery: Yes Family History Family Hypercholesterolemia: Yes Social History Alcohol Use: No Tobacco Use: No Substance Use: No Allergies-Medications (Allergen,Severity, Reaction): Coded Allergies: No Known Allergies (Verified Allergy, Unknown, 12/31/17) Reported Meds & Prescriptions Reported Meds & Active Scripts Active Eliquis (Apixaban) 5 Mg Tab 5 Mg PO BID 30 Days Metoprolol Tartrate 25 Mg Tab 12.5 Mg PO BID Magnesium 400 Mg Tab 400 Mg PO DAILY 7 Days Commode 3-in-1 (Device) 1 Mis Mis Ea .XX DIRECTED Walker with Front Wheels (Device) 1 Mis Mis Ea .XX DIRECTED Wheelchair (Device) 1 Mis Mis Ea .XX DIRECTED Hospital Bed - Manual 1 Ea Ea Ea .XX DIRECTED Semi-electric hospital bed with therapeutic foam mattress. Novolog Inj (Insulin Aspart) 1,000 Unit/10 Ml Vial 1-9 Units SQ ACHS Max dose at bedtime:( )units; sugars less than 70,(0)units; sugars 150-199,(1) unit; sugars 200-249,(3) units; sugars 250-299,(5) units; sugars 300-349,(7) units; sugars greater than 349,(9) units Levemir Flextouch Pen Inj (Insulin Detemir) 300 unit/3 ML Pen 10 Units SQ DAILY Aricept (Donepezil HCl) 5 Mg Tablet 2.5 Mg PO DAILY Reported Dulcolax Supp (Bisacodyl) 10 Mg Supp 10 Mg RECTAL DAILY PRN Tylenol (Acetaminophen) 325 Mg Tab 325 Mg PO Q4H PRN Memantine 10 Mg Tab 10 Mg PO DAILY Zocor (Simvastatin) 40 Mg Tab 40 Mg PO HS Omeprazole 20 Mg Tab 20 Mg PO DAILY Review of Systems ROS Limitations: Poor Historian Physical Exam Exam Limitations: Poor Historian Narrative GENERAL: 77-year-old male in no apparent distress SKIN: Focused skin assessment warm/dry. HEAD: Atraumatic. Normocephalic. EYES: Pupils equal and round. No scleral icterus. No injection or drainage. ENT: No nasal bleeding or discharge. Mucous membranes pink and moist. NECK: Trachea midline. CARDIOVASCULAR: irregular rate and rhythm. RESPIRATORY: No accessory muscle use. no increased effort GASTROINTESTINAL: Abdomen soft, nondistended. MUSCULOSKELETAL: No obvious deformities. No clubbing. No cyanosis. NEUROLOGICAL: Awake. moves extremities Data Data Last Documented VS Vital Signs Date Time Temp Pulse Resp B/P (MAP) Pulse Ox O2 Delivery O2 Flow Rate FiO2 12/31/17 18:50 95 Room Air 12/31/17 18:24 95 16 12/31/17 18:20 99.9 106/76 (86) Orders Orders Sepsis Workup Initiated (12/31/17 ) Electrocardiogram (12/31/17 18:26) Complete Blood Count With Diff (12/31/17 18:26) Comprehensive Metabolic Panel (12/31/17 18:26) Prothrombin Time / Inr (Pt) (12/31/17 18:26) Act Partial Throm Time (Ptt) (12/31/17 18:26) Lactic Acid Sepsis Protocol (12/31/17 18:26) Magnesium (Mg) (12/31/17 18:) Phosphorus (Po4) (12/31/17 18:) Ckmb (Isoenzyme) Profile (12/31/17 18:26) Troponin I (12/31/17 18:) Urinalysis - C+S If Indicated (12/31/17 18:26) Blood Culture (12/31/17 18:) Chest, Single Ap (12/31/17 18:26) Ecg Monitoring (12/31/17 18:26) Iv Access Insert/Monitor (12/31/17 18:) Oximetry (12/31/17 18:) Sodium Chlorid 0.9% 500 Ml Inj (Ns 500 M (12/31/17 18:30) Ct Brain W/O Iv Contrast(Rout) (12/31/17 ) Vascular Access Team Consult/P PRN (12/31/17 18:50) Vascular Poc Ultrasound (12/31/17 ) MDM Medical Decision Making Medical Screen Exam Complete: Yes Emergency Medical Condition: Yes Medical Record Reviewed: Yes (pmh confirmed) Differential Diagnosis UTI, sepsis, renal failure, subdural Narrative Course We will check blood work, imaging and reevaluate Physician Communication Physician Communication Oncoming physician dr harrison to follow workup Shanita Lu MD Dec 31, 2017 18:37
[2017-12-31 18:50] VITALS: O2SAT 95
--- NOTE | 2017-12-31 18:56 | PD ---
Physical Exam Date Seen by Provider: Dec 31, 2017 Time Seen by Provider: 18:54 Narrative The patient is a 77-year-old male was initially evaluated by the previous physician, Dr. Lu. Please refer to the initial history, physical, diagnostic evaluating, treatment modality plan. The patient was signed out at 7 PM with laboratory evaluation, UA, and CT the brain pending for altered mental status. Data Data Last Documented VS Vital Signs Date Time Temp Pulse Resp B/P (MAP) Pulse Ox O2 Delivery O2 Flow Rate FiO2 01/01/18 00:25 12/31/17 20:15 91 18 98 Room Air 12/31/17 18:20 99.9 Orders Orders Sepsis Workup Initiated (12/31/17 ) Electrocardiogram (12/31/17 18:26) Complete Blood Count With Diff (12/31/17 18:) Comprehensive Metabolic Panel (12/31/17 18:) Prothrombin Time / Inr (Pt) (12/31/17 18:) Act Partial Throm Time (Ptt) (12/31/17 18:) Lactic Acid Sepsis Protocol (12/31/17 18:) Magnesium (Mg) (12/31/17 18:) Phosphorus (Po4) (12/31/17 18:26) Ckmb (Isoenzyme) Profile (12/31/17 18:) Troponin I (12/31/17 18:) Urinalysis - C+S If Indicated (12/31/17 18:26) Blood Culture (12/31/17 18:) Chest, Single Ap (12/31/17 18:26) Ecg Monitoring (12/31/17 18:) Iv Access Insert/Monitor (12/31/17 18:) Oximetry (12/31/17 18:26) Sodium Chlorid 0.9% 500 Ml Inj (Ns 500 M (12/31/17 18:30) Ct Brain W/O Iv Contrast(Rout) (12/31/17 ) CKMB (12/31/17 18:50) CKMB% (12/31/17 18:50) Ed Discharge Order (12/31/17 21:55) Labs Laboratory Tests Test 12/31/17 18:50 12/31/17 20:20 White Blood Count 7.8 TH/MM3 Red Blood Count 4.78 MIL/MM3 Hemoglobin 13.9 GM/DL Hematocrit 41.9 % Mean Corpuscular Volume 87.8 FL Mean Corpuscular Hemoglobin 29.0 PG Mean Corpuscular Hemoglobin Concent 33.1 % Red Cell Distribution Width 15.0 % Platelet Count 336 TH/MM3 Mean Platelet Volume 7.5 FL Neutrophils (%) (Auto) 64.7 % Lymphocytes (%) (Auto) 23.7 % Monocytes (%) (Auto) 8.7 % Eosinophils (%) (Auto) 2.2 % Basophils (%) (Auto) 0.7 % Neutrophils # (Auto) 5.0 TH/MM3 Lymphocytes # (Auto) 1.8 TH/MM3 Monocytes # (Auto) 0.7 TH/MM3 Eosinophils # (Auto) 0.2 TH/MM3 Basophils # (Auto) 0.1 TH/MM3 CBC Comment DIFF FINAL Differential Comment Blood Urea Nitrogen 9 MG/DL Creatinine 1.15 MG/DL Random Glucose 105 MG/DL Total Protein 7.3 GM/DL Albumin 3.0 GM/DL Calcium Level 9.0 MG/DL Phosphorus Level 4.1 MG/DL Magnesium Level 1.8 MG/DL Alkaline Phosphatase 81 U/L Aspartate Amino Transf (AST/SGOT) 14 U/L Alanine Aminotransferase (ALT/SGPT) 21 U/L Total Bilirubin 0.3 MG/DL Sodium Level 139 MEQ/L Potassium Level 3.9 MEQ/L Chloride Level 103 MEQ/L Carbon Dioxide Level 25.1 MEQ/L Anion Gap 11 MEQ/L Estimat Glomerular Filtration Rate 75 ML/MIN Lactic Acid Level 1.6 mmol/L Total Creatine Kinase 166 U/L Creatine Kinase MB LESS THAN 0.5 NG/ML Troponin I LESS THAN 0.02 NG/ML Prothrombin Time 11.4 SEC Prothromb Time International Ratio 1.1 RATIO Activated Partial Thromboplast Time 21.1 SEC Urine Color YELLOW Urine Turbidity CLEAR Urine pH 7.0 Urine Specific [place] 1.017 Urine Protein NEG mg/dL Urine Glucose (UA) NEG mg/dL Urine Ketones NEG mg/dL Urine Occult Blood NEG Urine Nitrite NEG Urine Bilirubin NEG Urine Urobilinogen LESS THAN 2.0 MG/DL Urine Leukocyte Esterase NEG Urine RBC 2 /hpf Urine WBC 1 /hpf Urine Squamous Epithelial Cells <1 /hpf Urine Mucus FEW /lpf Microscopic Urinalysis Comment CATH-CULT NOT IND MDM Medical Record Reviewed: Yes Supervised Visit with ELDON: No Interpretation(s) EKG reveals atrial fibrillation with a rate of 97. RSR prime in V1. Incomplete right bundle branch block. Laboratory Tests Test 12/31/17 18:50 12/31/17 20:20 White Blood Count 7.8 TH/MM3 Red Blood Count 4.78 MIL/MM3 Hemoglobin 13.9 GM/DL Hematocrit 41.9 % Mean Corpuscular Volume 87.8 FL Mean Corpuscular Hemoglobin 29.0 PG Mean Corpuscular Hemoglobin Concent 33.1 % Red Cell Distribution Width 15.0 % Platelet Count 336 TH/MM3 Mean Platelet Volume 7.5 FL Neutrophils (%) (Auto) 64.7 % Lymphocytes (%) (Auto) 23.7 % Monocytes (%) (Auto) 8.7 % Eosinophils (%) (Auto) 2.2 % Basophils (%) (Auto) 0.7 % Neutrophils # (Auto) 5.0 TH/MM3 Lymphocytes # (Auto) 1.8 TH/MM3 Monocytes # (Auto) 0.7 TH/MM3 Eosinophils # (Auto) 0.2 TH/MM3 Basophils # (Auto) 0.1 TH/MM3 CBC Comment DIFF FINAL Differential Comment Blood Urea Nitrogen 9 MG/DL Creatinine 1.15 MG/DL Random Glucose 105 MG/DL Total Protein 7.3 GM/DL Albumin 3.0 GM/DL Calcium Level 9.0 MG/DL Phosphorus Level 4.1 MG/DL Magnesium Level 1.8 MG/DL Alkaline Phosphatase 81 U/L Aspartate Amino Transf (AST/SGOT) 14 U/L Alanine Aminotransferase (ALT/SGPT) 21 U/L Total Bilirubin 0.3 MG/DL Sodium Level 139 MEQ/L Potassium Level 3.9 MEQ/L Chloride Level 103 MEQ/L Carbon Dioxide Level 25.1 MEQ/L Anion Gap 11 MEQ/L Estimat Glomerular Filtration Rate 75 ML/MIN Lactic Acid Level 1.6 mmol/L Total Creatine Kinase 166 U/L Creatine Kinase MB LESS THAN 0.5 NG/ML Troponin I LESS THAN 0.02 NG/ML Prothrombin Time 11.4 SEC Prothromb Time International Ratio 1.1 RATIO Activated Partial Thromboplast Time 21.1 SEC Urine Color YELLOW Urine Turbidity CLEAR Urine pH 7.0 Urine Specific [place] 1.017 Urine Protein NEG mg/dL Urine Glucose (UA) NEG mg/dL Urine Ketones NEG mg/dL Urine Occult Blood NEG Urine Nitrite NEG Urine Bilirubin NEG Urine Urobilinogen LESS THAN 2.0 MG/DL Urine Leukocyte Esterase NEG Urine RBC 2 /hpf Urine WBC 1 /hpf Urine Squamous Epithelial Cells <1 /hpf Urine Mucus FEW /lpf Microscopic Urinalysis Comment CATH-CULT NOT IND Last Impressions Chest X-Ray 12/31/17 1826 Signed Impressions: CONCLUSION: Negative examination. Head CT 12/31/17 0000 Signed Impressions: CONCLUSION: 1. Stable appearance of the brain. Differential Diagnosis Differential diagnosis includes delirium, UTI, hyponatremia, pneumonia, sepsis, subdural hemorrhage, dementia, hypoglycemia, dehydration. Narrative Course The patient was initially evaluated by the previous physician. Please refer to the initial history, physical, diagnostic evaluation, and treatment modality plan. The patient was signed out at [address] of the brain, UA, and laboratory evaluation pending. CT the brain is negative for any acute findings , no evidence of subdural hemorrhage. UA is negative. White count is normal. Sodium is normal. Patient appears to have delirium with no reversible cause, may be related to dementia with acute onset delirium, possibly medication involved. The patient was reevaluated and was comfortable. I had a long discussion with the at bedside regarding possible causes and etiologies of delirium on top of dementia. The does state they are scheduled to see palliative care in the future for possible consultation in regards to progressing dementia. The patient will be discharged home with the . She is advised to return if symptoms worsen or progress. Diagnosis Primary Impression: Dementia Qualified Codes: F03.90 - Unspecified dementia without behavioral disturbance Additional Impression: Delirium Patient Instructions: General Instructions Additional Instruction: Please provide the patient and his a copy of the CT results, x-ray results , lab results, and UA results at discharge. Follow-up with your primary physician. Return if symptoms worsen or progress. Med/Other Pt SpecificInfo: No Change to Meds Disposition: 01 DISCHARGE HOME Condition: Stable Sai Osorio MD Dec 31, 2017 18:56
[2017-12-31 19:05] LABS: BASOPHIL # 0.1 TH/MM3 (0-0.2); BASOPHIL % 0.7 % (0.0-2.0); EOSINOPHIL # 0.2 TH/MM3 (0-0.4); EOSINOPHIL % 2.2 % (0.0-4.0); HEMATOCRIT 41.9 % (39.0-51.0); HEMOGLOBIN 13.9 GM/DL (13.0-17.0); LYMPH % 23.7 % (9.0-44.0); LYMPHOCYTE # 1.8 TH/MM3 (1.0-4.8); MEAN CELL VOLUME 87.8 FL (80.0-100.0); MEAN CORPUSCULAR HGB CONC 33.1 % (32.0-36.0); MEAN PLATELET VOLUME 7.5 FL (7.0-11.0); MONO % 8.7 % (0.0-8.0); MONOCYTE # 0.7 TH/MM3 (0-0.9); NEUT % 64.7 % (16.0-70.0); PLATELET COUNT 336 TH/MM3 (150-450); RED BLOOD COUNT 4.78 MIL/MM3 (4.50-5.90); WHITE BLOOD COUNT 7.8 TH/MM3 (4.0-11.0)
[2017-12-31 19:24] LABS: AST (GOT) 14 U/L (15-37); BICARBONATE 25.1 MEQ/L (21.0-32.0); BLOOD UREA NITROGEN 9 MG/DL (7-18); CHLORIDE 103 MEQ/L (98-107); CREATININE 1.15 MG/DL (0.60-1.30); GLOMERULAR FILTRATION RATE 75 ML/MIN (>89); GLUCOSE,RANDOM 105 MG/DL (74-106); MAGNESIUM 1.8 MG/DL (1.5-2.5); SODIUM (NA) 139 MEQ/L (136-145)
[2017-12-31 19:29] LABS: ALKALINE PHOSPHATASE 81 U/L (45-117); ALT (GPT) 21 U/L (12-78); PHOSPHORUS 4.1 MG/DL (2.5-4.9); TOTAL BILIRUBIN ADULT 0.3 MG/DL (0.2-1.0); TOTAL PROTEIN 7.3 GM/DL (6.4-8.2); TROPONIN I LESS THAN 0.02 NG/ML (0.02-0.05)
--- NOTE | 2017-12-31 19:33 | RADRPT ---
EXAM DATE: 12/31/2017 7:18 PM EDT AGE/SEX: 77 years / Male INDICATIONS: Fever. Weakness. CLINICAL DATA: This is the patient's initial encounter. Patient reports that signs and symptoms have been present for 3 days and indicates a pain score of Nonresponsive. MEDICAL/SURGICAL HISTORY: None. None. COMPARISON: [facility] [place], CHEST SINGLE AP, 11/20/2017. . FINDINGS: Lungs are clear. Stable elevation of the left hemidiaphragm. Osseous structures are intact. Heart siz e normal. CONCLUSION: Negative examination. Electronically signed by: Bruce Gates MD 12/31/2017 7:31 PM EDT
[2017-12-31 20:15] VITALS: BP 125/61; PULSE 91; RESP 18; O2SAT 98
--- NOTE | 2017-12-31 20:22 | RADRPT ---
EXAM DATE: 12/31/2017 8:16 PM EDT AGE/SEX: 77 years / Male INDICATIONS: Altered mental status. CLINICAL DATA: This is the patient's initial encounter. Patient reports that signs and symptoms have been present for 1 day and indicates a pain score of 0/10. MEDICAL/SURGICAL HISTORY: Cerebrovascular disease. Cardiovascular disease. Hypertension. Diabete s, dementia, seizures. None. RADIATION DOSE: 31.70 CTDI (mGy) COMPARISON: [facility] [place], CT BRAIN W/O CONTRAST, 11/20/2017. . TECHNIQUE: CT of the head without contrast. Using automated exposure control and adjustment of the mA and/or kV according to patient size, radiation dose was kept as low as reasonably achievable to ob tain optimal diagnostic quality images. FINDINGS: There is atrophy, and prominence of the bifrontal CSF containing spaces with hypodense bilateral fron jacob subdural collections noted. This is not significantly changed. There is no midline shift or mass effect. 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 There are no fractures. The pa tient has had previous bifrontal craniotomy. The paranasal sinuses are well aerated. No signs of mass or acute infarction. No acute hemorrhage. CONCLUSION: 1. Stable appearance of the brain. Electronically signed by: Bruce Gates MD 12/31/2017 8:20 PM EDT
[2017-12-31 20:37] LABS: BILIRUBIN, URINE NEG (NEG); BLOOD, URINE NEG (NEG); GLUCOSE,URINE NEG (NEG); KETONE, URINE NEG (NEG); MUCUS URINE FEW /lpf (OCC); NITRITE,URINE NEG (NEG); SQUAMOUS EPITHELIAL CELL URINE <1 /hpf (0-5); URINE COLOR YELLOW (YELLW/STRAW); URINE LEUKOCYTE ESTERASE NEG (NEG)
[2017-12-31 20:44] LABS: INTERNATIONAL NORMALIZED RATIO 1.1 RATIO; PROTHROMBIN TIME - PATIENT 11.4 SEC (9.8-11.6)
--- NOTE | 2018-01-01 19:15 | EKG ---
Date Performed: 12/31/2017 Time Performed: 17:38:03 PTAGE: 77 years EKG: ATRIAL FIBRILLATION INCOMPLETE RIGHT BUNDLE BRANCH BLOCK ABNORMAL RHYTHM ECG Compared to PREVIOUS TRACING , SR no longer present DOCTOR: Alejandro Strange Interpretating Date/Time 01/01/2018 19:14:25
== END 2018-01-01 00:28 | disposition home or self-care (01) ==
LOC: NEPE 18:04
DX: G30.9 Alzheimer's disease, unspecified (principal); F02.80 Dementia in other diseases classified elsewhere, unspecified severity, without behavioral disturbance, psychotic disturbance, mood disturbance, and anxiety; R41.0 Disorientation, unspecified; I48.91 Unspecified atrial fibrillation; I25.10 Atherosclerotic heart disease of native coronary artery without angina pectoris; E11.9 Type 2 diabetes mellitus without complications; K21.9 Gastro-esophageal reflux disease without esophagitis; I10 Essential (primary) hypertension; Z86.73 Personal history of transient ischemic attack (TIA), and cerebral infarction without residual deficits
CPT/HCPCS: 70450; 71045; 80053; 81001; 82550; 82552; 83605; 83735; 84100; 84484; 85025; 85610; 85730; 87040; 93005; 96360; 99285; J7040

== ENCOUNTER 2018-02-24 02:28 | Inpatient (IN) ==
[2018-02-24] MEDS ORDERED: Sod Chloride 0.9% Inj 1,000 ML IV.SIG ONE (03:09)
--- NOTE | 2018-02-24 03:13 | ED ---
HPI General Chief complaint: Medical Clearance Stated complaint: medcial Time Seen by Provider: 02/24/18 02:42 Source: family Mode of arrival: wheelchair Limitations: altered mental status History of Present Illness HPI narrative: 77-year-old man with advanced dementia presents to the emergency department for inability to swallow. Patient is a history of advanced dementia. He is bedbound. He has a couple bedsores. He does not really talk, has not for the past month. He has been losing weight. He has not been swallowing. His inability swallows worsened over the past 3 days. Family reports that when he tries to swallow he just spits food back up. He is been on thickened diet already, with thickened water. Family has an appointment to see hospice tomorrow for the first time. Related Data Home Medications Medication Instructions Recorded Confirmed apixaban [Eliquis] 5 mg PO BID 02/24/18 02/24/18 donepezil 2.5 mg PO DAILY 02/24/18 02/24/18 memantine 10 mg PO BID 02/24/18 02/24/18 metoprolol tartrate 12.5 mg PO BID 02/24/18 02/24/18 omeprazole 40 mg PO DAILY 02/24/18 02/24/18 simvastatin 40 mg PO QPM 02/24/18 02/24/18 zinc 50 mg PO DAILY 02/24/18 02/24/18 Allergies Allergy/AdvReac Type Severity Reaction Status Date / Time No Known Allergies Allergy Verified 02/24/18 02:34 Review of Systems ROS Unobtainable All other systems reviewed negative except as stated in HPI [facility] Medical History Medical History Dementia (Acute) Diabetes (Acute) Surgical History Surgical History History of neurologic surgery (Acute) Social History Social History Smoking Status: Never smoker How Often Do You Have a Drink Containing Alcohol: Never Recent Travel in [place] within the Last 8 Weeks: No Recent Out of Country Travel within the Last 8 Weeks: No Immunization History Tetanus Immunization: Unsure Exam Narrative Exam Narrative: GENERAL: 77-year-old man, frail, nonverbal. SKIN: Focused skin assessment warm/dry. HEAD: Atraumatic. Normocephalic. EYES: Pupils equal and round. No scleral icterus. No injection or drainage. ENT: No nasal bleeding or discharge. Mucous membranes are little bit dry. NECK: Trachea midline. No JVD. No adenopathy or masses. CARDIOVASCULAR: Regular rate and rhythm. No murmur appreciated. RESPIRATORY: No accessory muscle use. Clear to auscultation. Breath sounds equal bilaterally. GASTROINTESTINAL: Abdomen scaphoid and flat. MUSCULOSKELETAL: No obvious deformities. No edema. NEUROLOGICAL: Awake and alert. No obvious cranial nerve deficits. Motor grossly within normal limits. Normal speech. PSYCHIATRIC: Appropriate mood and affect; insight and judgment normal. Course Initial Documented Vital Signs Temperature 97.9 F 02/24/18 02:30 Pulse Rate 125 H 02/24/18 02:30 Respiratory Rate 16 02/24/18 02:30 Blood Pressure 81/59 L 02/24/18 02:30 Pulse Oximetry 98 02/24/18 02:30 Last Documented Vital Signs Temperature 97.9 F 02/24/18 02:30 Pulse Rate 114 H 02/24/18 04:44 Respiratory Rate 18 02/24/18 04:44 Blood Pressure 112/69 02/24/18 04:44 Pulse Oximetry 97 02/24/18 04:44 Medical Decision Making MDM Narrative Medical decision making narrative: 77-year-old man, advanced dementia, worsening swallowing difficulties. Possibly due to a reversible cause. My suspicion is this is likely more related to his underlying advanced dementia. Will check basic labs. He had a hypotension on presentation and appears dehydrated. We will give IV fluids. Spoke with case management. Will place consult for hospice. Plan on swallow studies to look for reversible causes. Likely observation. Lab Data Result diagrams: 02/24/18 03:19 02/24/18 04:40 Lab Results 02/24/18 02/24/18 Range/Units 03:19 04:40 WBC 11.2 H (4.0-11.0) th/mm3 RBC 4.86 (4.50-5.90) mil/mm3 Hgb 13.3 (13.0-17.0) gm/dL Hct 40.5 (39.0-51.0) % MCV 83.2 (80.0-100.0) fL MCH 27.3 (27.0-34.0) pg MCHC 32.9 (32.0-36.0) % RDW 14.9 (11.6-17.2) % Plt Count 518 H (150-450) th/mm3 MPV 7.5 (7.0-11.0) fL Neut % (Auto) 74.3 H (16.0-70.0) % Lymph % (Auto) 16.0 (9.0-44.0) % Barry % (Auto) 8.9 H (0.0-8.0) % Eos % (Auto) 0.3 (0.0-4.0) % Baso % (Auto) 0.5 (0.0-2.0) % Neut # (Auto) 8.3 H (1.8-7.7) th/mm3 Lymph # (Auto) 1.8 (1.0-4.8) th/mm3 Barry # (Auto) 1.0 H (0.0-0.9) th/mm3 Eos # (Auto) 0.0 (0.0-0.4) th/mm3 Baso # (Auto) 0.1 (0.0-0.2) th/mm3 WBC Differential . Differential Comment Auto diff final Sodium 141 (136-145) meq/L Potassium 4.0 (3.5-5.1) meq/L Chloride 108 H (98-107) meq/L Carbon Dioxide 23.9 (21.0-32.0) meq/L Anion Gap 9 (5-15) meq/L BUN 11 (7-18) mg/dL Creatinine 0.78 (0.60-1.30) mg/dL Estimated GFR Greater than 89 (>89) mL/min Random Glucose 135 H (74-106) mg/dL Calcium 7.6 L (8.5-10.1) mg/dL Total Bilirubin 0.4 (0.2-1.0) mg/dL AST 31 (15-37) U/L ALT 16 (12-78) U/L Alkaline Phosphatase 57 (45-117) U/L Total Protein 6.3 L (6.4-8.2) g/dL Albumin 2.0 L (3.4-5.0) g/dL Imaging Data Radiologist's impression: Chest X-Ray 02/24/18 03:09 CONCLUSION: No acute cardiopulmonary disease. Discharge Plan Discharge Disposition Patient Disposition: 30 Still Patient Physicians Team ED Provider: Ezra Still Primary Care Provider: Manjit Jiménez Attending Provider: Elida De Paz Discharge Interventions Interventions: Vital Signs Last Done: 02/24/18 04:44 Status ED Status: Admitted Observation Patient
[2018-02-24 03:53] LABS: Baso # (Auto) 0.1 th/mm3 (0.0-0.2); Baso % (Auto) 0.5 % (0.0-2.0); Eos % (Auto) 0.3 % (0.0-4.0); Hematocrit 40.5 % (39.0-51.0); Hemoglobin 13.3 gm/dL (13.0-17.0); Lymph # (Auto) 1.8 th/mm3 (1.0-4.8); Mean Corpuscular HGB Conc 32.9 % (32.0-36.0); Mean Corpuscular Hemoglobin 27.3 pg (27.0-34.0); Mean Corpuscular Volume 83.2 fL (80.0-100.0); Mean Platelet Volume 7.5 fL (7.0-11.0); Mono % (Auto) 8.9 % (0.0-8.0); Neut # (Auto) 8.3 th/mm3 (1.8-7.7); Neut % (Auto) 74.3 % (16.0-70.0); Platelet Count 518 th/mm3 (150-450); Red Blood Count 4.86 mil/mm3 (4.50-5.90); Red Cell Distribution Width 14.9 % (11.6-17.2); White Blood Count 11.2 th/mm3 (4.0-11.0)
--- NOTE | 2018-02-24 04:05 | XR ---
EXAM DATE: 02/24/2018 3:35 AM EDT AGE/SEX: 77 years / Male INDICATIONS: Shortness of breath. CLINICAL DATA: This is the patient's initial encounter. Patient reports that signs and symptoms have been present for 1 day and indicates a pain score of Nonresponsive. MEDICAL/SURGICAL HISTORY: None. None. COMPARISON: [facility] [place], CHEST SINGLE AP, 12/31/2017. . FINDINGS: A single AP view of the chest demonstrates the lungs to be symmetrically aerated without evidence of mass, infiltrate or effusion. The cardiomediastinal contours are unremarkable. Osseous structures a re intact. CONCLUSION: No acute cardiopulmonary disease. Electronically signed by: Johnson Nicholson MD 02/24/2018 4:03 AM EDT
[2018-02-24 05:11] LABS: Alkaline Phosphatase 57 U/L (45-117); Total Protein 6.3 g/dL (6.4-8.2)
[2018-02-24 05:18] LABS: Alanine Aminotransferase 16 U/L (12-78); Anion Gap 9 meq/L (5-15); Aspartate Aminotransferase 31 U/L (15-37); Blood Urea Nitrogen 11 mg/dL (7-18); Calcium 7.6 mg/dL (8.5-10.1); Carbon Dioxide 23.9 meq/L (21.0-32.0); Chloride 108 meq/L (98-107); Glomerular Filtration Rate Greater Than 89 mL/min (>89); Glucose,Random 135 mg/dL (74-106); Sodium 141 meq/L (136-145)
[2018-02-24] MEDS ORDERED: Bisacodyl 10 MG Supp RECTAL PRN (05:47)
[2018-02-24] MEDS ORDERED: Iohexol 350 MG/ML 50 ML Vial (for Rad Diag) G-TUBE ONE (05:48)
[2018-02-24] MEDS: Sod Chloride 0.9% Inj 1,000 ML IV.CONT SCH (06:38)
[2018-02-24] MEDS ORDERED: Dextrose 50% in Water 50 ML Vial IV.PUSH PRN (08:35)
[2018-02-24] MEDS ORDERED: Heparin - SQ 10,000 UNITS/ML Vial SQ SCH (09:00)
--- NOTE | 2018-02-24 11:48 | P.HP ---
History of Present Illness Primary Care Physician: Manjit Jiménez MD History of Present Illness: This is a 77-year-old male was brought in by his family because of altered mental status. Patient is nonverbal so history is mainly taken from chart review. Reportedly patient has been losing weight and not swallowing. Every time he is given food he would spit it out. He has history of dementia and has been bedbound with bedsores involving the sacrum and left foot, PE diagnosed in October on Eliquis, TIA/CVA, TBI with subdural hematoma, seizure disorder, hypertension, coronary artery disease, diabetes mellitus, anemia, acute kidney injury, diabetes mellitus, hyperlipidemia and GERD. He was scheduled to meet hospice outpatient and family has requested hospice consult in the hospital. In the emergency department, he was found to be dehydrated with hypotension and tachycardia and has been started on IV hydration. He also was leukocytosis with negative chest x-ray. Urinalysis has been ordered. At this time he is easily awakened follows commands intermittently but does not answer questions. Family is not at bedside. All other systems reviewed negative Review of Systems All other systems reviewed negative except as stated in HPI PMFSH - History History Provided By: Family Member - Medical History Medical History: Medical History (Last Reviewed 02/24/18 @ 08:07 by Elisa Barraza Emergency Medical Technician, [employer]) Dementia Diabetes - Surgical History Surgical History: Surgical History (Last Updated 02/24/18 @ 11:43 by Yovanny Abarca MD) History of cardiac cath History of neurologic surgery - Family History Family History: Family History (Last Updated 02/24/18 @ 11:43 by Yovanny Abarca MD) Other HLD (hyperlipidemia) - Tobacco History Smoking Status: Never smoker - Alcohol History How Often Do You Have a Drink Containing Alcohol: Never - Travel History Recent Travel in the [place] Within the Last 8 Weeks: No Recent Travel Out of the Country Within the Last 8 Weeks: No - Immunization History Tetanus Immunization: Unsure Medications and Allergies Active Medications: Active Medications Apixaban (Eliquis) 5 mg PO BID HA Bisacodyl (Dulcolax Supp) 10 mg RECTAL DAILY PRN PRN Reason: SEVERE CONSITIPATION Dextrose (D50w Vial) 50 ml IV.PUSH UNSCH PRN PRN Reason: PER HYPOGLYCEMIA PROTOCOL Donepezil HCl (Aricept) 2.5 mg PO DAILY HA Glucagon (Glucagon Inj) 1 mg OTHER PRN PRN PRN Reason: for Hypoglycemia Protocol Sodium Chloride (Ns Inj) 1,000 mls @ 100 mls/hr IV.CONT .Q10H HA Last Admin: 02/24/18 06:38 Dose: 100 mls/hr Insulin Aspart (Novolog Insulin Correctional Sugar Inj) 0 unit SQ ACHS HA; Protocol Memantine (Namenda) 10 mg PO BID HA Metoprolol Tartrate (Lopressor) 12.5 mg PO BID [facility] Non-Formulary Medication (Omeprazole [Omeprazole]) 40 mg PO DAILY HA Non-Formulary Medication (Simvastatin [Simvastatin]) 40 mg PO QPM HA Ondansetron HCl (Zofran Odt) 4 mg PO Q6H PRN PRN Reason: NAUSEA OR VOMITING Allergies Allergy/AdvReac Type Severity Reaction Status Date / Time No Known Allergies Allergy Verified 02/24/18 02:34 Home Medications Medication Instructions Recorded Confirmed Type Levemir U-100 Insulin 10 unit SUB-Q DAILY 02/24/18 02/24/18 History apixaban [Eliquis] 5 mg PO BID 02/24/18 02/24/18 History donepezil 2.5 mg PO DAILY 02/24/18 02/24/18 History memantine 10 mg PO BID 02/24/18 02/24/18 History metoprolol tartrate 12.5 mg PO BID 02/24/18 02/24/18 History omeprazole 40 mg PO DAILY 02/24/18 02/24/18 History simvastatin 40 mg PO QPM 02/24/18 02/24/18 History zinc 50 mg PO DAILY 02/24/18 02/24/18 History Exam Vital signs: Vital Signs 02/24/18 02:30 02/24/18 02:41 02/24/18 04:44 Temperature 97.9 F Pulse Rate 125 H 120 H 114 H Respiratory Rate 16 16 18 Blood Pressure 81/59 L 116/75 112/69 Pulse Oximetry 98 100 97 02/24/18 08:00 Temperature 97.8 F Pulse Rate 113 H Respiratory Rate 18 Blood Pressure 121/65 Pulse Oximetry Intake & Output 02/23/18 02/24/18 02/24/18 18:59 06:59 18:59 Intake Total 1000 / 1000 Balance 1000 / 1000 Weight 65 kg Intake: IV 1000 / 1000 NS Inj 1,000 ML @ Wide Open IV. 1000 / 1000 SIG BOLUS ONE Rx#:[id number] Narrative: GENERAL: Well-developed well-nourished in no distress SKIN: Warm and dry. Stage II sacral decubitus. Left foot is covered with dry and clean bandage HEAD: Atraumatic. Normocephalic. EYES: Pupils equal and round. No scleral icterus. No injection or drainage. ENT: No nasal bleeding or discharge. Mucous membranes pink and moist. NECK: Trachea midline. No JVD. CARDIOVASCULAR: Regular rate and rhythm. RESPIRATORY: No accessory muscle use. Clear to auscultation. Breath sounds equal bilaterally. GASTROINTESTINAL: Abdomen soft, non-tender, nondistended. MUSCULOSKELETAL: Extremities without clubbing, cyanosis, or edema. No obvious deformities. Left lower extremity is contracted NEUROLOGICAL: Awake but not answering questions. He is following commands intermittently. No obvious cranial nerve deficits. Results - Labs CBC & Chem 7: 02/24/18 03:19 02/24/18 04:40 Labs: Laboratory Results - last 24 hr 02/24/18 02/24/18 02/24/18 03:19 04:40 04:40 WBC 11.2 H RBC 4.86 Hgb 13.3 Hct 40.5 MCV 83.2 MCH 27.3 MCHC 32.9 RDW 14.9 Plt Count 518 H MPV 7.5 Neut % (Auto) 74.3 H Lymph % (Auto) 16.0 [place] % (Auto) 8.9 H Eos % (Auto) 0.3 Baso % (Auto) 0.5 Neut # (Auto) 8.3 H Lymph # (Auto) 1.8 [place] # (Auto) 1.0 H Eos # (Auto) 0.0 Baso # (Auto) 0.1 WBC Differential . Differential Comment Auto diff final Sodium 141 Potassium 4.0 Chloride 108 H Carbon Dioxide 23.9 Anion Gap 9 BUN 11 Creatinine 0.78 Estimated GFR Greater than 89 POC Glucose Random Glucose 135 H Calcium 7.6 L Total Bilirubin 0.4 AST 31 ALT 16 Alkaline Phosphatase 57 Total Protein 6.3 L Albumin 2.0 L TSH 1.800 02/24/18 09:14 WBC RBC Hgb Hct MCV MCH MCHC RDW Plt Count MPV Neut % (Auto) Lymph % (Auto) [place] % (Auto) Eos % (Auto) Baso % (Auto) Neut # (Auto) Lymph # (Auto) [place] # (Auto) Eos # (Auto) Baso # (Auto) WBC Differential Differential Comment Sodium Potassium Chloride Carbon Dioxide Anion Gap BUN Creatinine Estimated GFR POC Glucose 140 H Random Glucose Calcium Total Bilirubin AST ALT Alkaline Phosphatase Total Protein Albumin TSH - Imaging Impressions Chest X-Ray 02/24/18 03:09 CONCLUSION: No acute cardiopulmonary disease. Caprini VTE Risk Assessment Caprini VTE Risk Assessment: Moderate/High Risk (score >= 2) Caprini Risk Assessment Model: Point Value = 1 Point Value = 2 Point Value = 3 Point Value = 5 Age 41-60 Minor surgery BMI > 25 kg/m2 Swollen legs Varicose veins or History of unexplained or recurrent spontaneous Oral contraceptives or hormone replacement Sepsis (< 1 month) Serious lung disease, including pneumonia (< 1 month) Abnormal pulmonary function Acute myocardial infarction Congestive heart failure (< 1 month) History of inflammatory bowel disease Medical patient at bed rest Age 61-74 Arthroscopic surgery Major open surgery (> 45 min) Laparoscopic surgery (> 45 min) Malignancy Confined to bed (> 72 hours) Immobilizing plaster cast Central venous access Age >= 75 History of VTE Family history of VTE Factor V Leiden Prothrombin [id number] Lupus anticoagulant Anticardiolipin antibodies Elevated serum homocysteine Heparin-induced thrombocytopenia Other congenital or acquired thrombophilia Stroke (< 1 month) Elective arthroplasty Hip, pelvis, or leg fracture Acute spinal cord injury (< 1 month) Prophylaxis Regimen: Total Risk Factor Score Risk Level Prophylaxis Regimen 0-1 Low Early ambulation 2 Moderate Order ONE of the following: *Sequential Compression Device (SCD) *Heparin 5000 units SQ BID 3-4 Higher Order ONE of the following medications: *Heparin 5000 units SQ TID *Enoxaparin/Lovenox 40 mg SQ daily (WT < 150 kg, CrCl > 30 mL/min) *Enoxaparin/Lovenox 30 mg SQ daily (WT < 150 kg, CrCl > 10-29 mL/min) *Enoxaparin/Lovenox 30 mg SQ BID (WT < 150 kg, CrCl > 30 mL/min) AND/OR *Sequential Compression Device (SCD) 5 or more Highest Order ONE of the following medications: *Heparin 5000 units SQ TID (Preferred with Epidurals) *Enoxaparin/Lovenox 40 mg SQ daily (WT < 150 kg, CrCl > 30 mL/min) *Enoxaparin/Lovenox 30 mg SQ daily (WT < 150 kg, CrCl > 10-29 mL/min) *Enoxaparin/Lovenox 30 mg SQ BID (WT < 150 kg, CrCl > 30 mL/min) AND *Sequential Compression Device (SCD) Assessment and Plan - Plan This is a 77-year-old male was brought in by his family because of altered mental status. Patient is nonverbal so history is mainly taken from chart review. Reportedly patient has been losing weight and not swallowing. Every time he is given food he would spit it out. Encephalopathy with a history of dementia, TIA/CVA and TBI with subdural hematoma. He also has seizure disorder. He is awake but not answering questions. He is following commands intermittently. There is no evidence of infection at this time though he has slight leukocytosis. Chest x-ray image interpreted by me with no acute cardiopulmonary disease. Urinalysis has been ordered. He is a full code and hospice has been consulted per family's request. Dysphagia status post speech therapy evaluation. Aspiration precautions. Dehydration with hypotension and tachycardia. Continue IV hydration Decubiti involving the sacrum and left foot. Wound care consult Multiple medical conditions of PE diagnosed in October on Eliquis, hypertension, coronary artery disease, diabetes mellitus, anemia, acute kidney injury, diabetes mellitus, hyperlipidemia and GERD. Continue outpatient medications as appropriate Discharge Planning: Hospice consulted - SNF vs Home
[2018-02-24] MEDS: Insulin NovoLOG Aspart Correctional Sugar Inj SQ SCH ×2 (14:04→18:44)
--- NOTE | 2018-02-24 17:20 | P.PNWCN ---
Wound Care Nurse Consult Description: Wound consult ordered by for wound management. Communicated with: Luz RN, , Recommendation: 1. Reposition patient every 2 hours for comfort and offloading.Ensure patient heel protector boots are in place when in bed. 2. Cleanse sacrum/intra gluteal cleft and left foot with normal saline only. 3. Apply Calazime cream to sacral/intra gluteal cleft BID or as needed for incontinence. 4. Apply Santyl 2mm thick to left calcaneus and left medial ankle cover with single layer saline moistened fluffed gauze secure with dry gauze/ rolled gauze/ tape 5. Sign and date all dressings Additional information: Patient was seen today by engineering writer and Luz JENNINGS for wound management.Patient alert in bed non verbal to engineering writer or nurse.Patient was repositioned to right side with assistance of RN.Lead Web Application Developer removed foam dressing from sacral/coccyx region to reveal a unstageable pressure injury to sacrum measuring 1.5cm x1.0cm x dry intact stable eschar.Periwound blanchable to touch no drainage or odor present.Patient noted to have diffuse moisture friction partial thickness wound to bilateral gluteal.Wound bases 100% moist pink/red non granular tissue with scant serosanguineous exudate noted.Patient currently incontinent of bowls and bladder adult brief removed due to patient being non ambulatory.Sacral/gluteal cleansed with normal saline pat dry .Calazime cream applied to partial thickness wounds and eschar periwound.Left open to air .UltraSorb moisture wicking pad placed under patient for incontinence.Dressing removed from left foot with out difficulty.Patient has a unstageable pressure injury to left calcaneus measuring ~5.5cm x6.8cm x loosely adhered black soft eschar.Mechanical debridement performed with saline moistened gauze.Patient noted to have minimal facial grimacing.Patient has a stage 2 pressure injury to left lateral ankle measuring 2.6cm x 2.8cm x0.1cm wound base is moist pink non granular tissue wound edges are well defined even with wound base scant serous exudate noted without odor.DTI noted to left lateral 5th metatarsal base measuring 2.0cm x 2.0cm .Wounds cleansed with normal saline pat dry .Skin prep applied to DTI and pressure injury periwound.Left calcaneus moist to dry dressing applied till Santyl available.Calazime applied to stage 2 pressure injury covered with Optifoam gentle .Low air loss surface ordered as Well as heel protector boots.Patient was repositioned to right side. Wound/Pressure Injury - Wound Sacrum Wound Staging: Unstageable Wound Assessment: Ongoing Wound Type: Pressure Injury Is This a Chronic Wound: Yes Requested from Provider a Wound Care Consult: No (Adelia JENNINGS,DANIELA seen 02/24) Length: 1.5 Width: 1.0 Depth: 0 (eschar) Wound Bed Appearance: Necrotic Surrounding Tissue Appearance: Blanched/Dull Surrounding Tissue Temperature: Cool Left Ankle Wound Staging: Stage II Wound Assessment: Ongoing Wound Type: Pressure Injury Is This a Chronic Wound: Yes Requested from Provider a Wound Care Consult: No Wound Bed Appearance: [place], Red Surrounding Tissue Appearance: Blanched/Dull Surrounding Tissue Temperature: Cool Drainage Description: Sanguinous Drainage Amount: Scant Drainage Odor: No Odor Dressing Status: Changed Topical: calazime Cover Dressing: Adhesive Dressing Wound Dressing Change Date: 02/24/18 Left Heel Wound Staging: Unstageable Wound Assessment: Ongoing Wound Type: Pressure Injury Is This a Chronic Wound: Yes Requested from Provider a Wound Care Consult: No (Adelia JENNINGS,DANIELA seen 02/24) Length: 5.2 Width: 6.8 Depth: 0 (eschar) Wound Bed Appearance: Necrotic, Peeling Skin, [place], Red, Yellow Surrounding Tissue Appearance: Taut Surrounding Tissue Temperature: Warm Drainage Description: Serosanguinous Drainage Amount: Scant Drainage Odor: No Odor Dressing Status: Changed Cleansing Solution: Saline Cover Dressing: Adhesive Dressing Wound Dressing Change Date: 02/24/18 Left Foot Wound Staging: DTI Wound Type: Pressure Injury Length: 2.0 Width: 2.0 Topical: Cavilon skin prep
[2018-02-24] MEDS: Metoprolol Tartrate 25 MG Tablet PO SCH (22:59)
[2018-02-25] MEDS: Insulin NovoLOG Aspart Correctional Sugar Inj SQ SCH ×5 (07:10→21:14)
[2018-02-25] MEDS: Metoprolol Tartrate 25 MG Tablet PO SCH ×3 (09:16→21:01)
[2018-02-25] MEDS: Sod Chloride 0.9% Inj 1,000 ML IV.CONT SCH ×3 (11:04→12:18)
[2018-02-25 12:17] LABS: Bacteria,Urine Rare /hpf; Bilirubin,Urine Negative (Negative); Clarity,Urine Hazy (Clear); Color,Urine Yellow (Yellw/Straw); Glucose,Urine (UA) Negative (Negative); Leukocyte Esterase,Urine Negative (Negative); Mucus,Urine Few /lpf (Occasional); Nitrite,Urine Negative (Negative); Specific Gravity,Urine 1.018 (1.002-1.035); Squamous Epithelial Cell,Urine <1 /hpf (0-5)
[2018-02-25 13:17] LABS: Baso % (Auto) 0.2 % (0.0-2.0); Eos % (Auto) 0.2 % (0.0-4.0); Hematocrit 33.9 % (39.0-51.0); Hemoglobin 11.7 gm/dL (13.0-17.0); Lymph # (Auto) 0.8 th/mm3 (1.0-4.8); Lymph % (Auto) 8.1 % (9.0-44.0); Mean Corpuscular HGB Conc 34.4 % (32.0-36.0); Mean Corpuscular Hemoglobin 29.3 pg (27.0-34.0); Mean Corpuscular Volume 85.1 fL (80.0-100.0); Mean Platelet Volume 7.3 fL (7.0-11.0); Mono # (Auto) 0.7 th/mm3 (0.0-0.9); Mono % (Auto) 7.4 % (0.0-8.0); Neut # (Auto) 8.5 th/mm3 (1.8-7.7); Neut % (Auto) 84.1 % (16.0-70.0); Platelet Count 395 th/mm3 (150-450); Red Blood Count 3.98 mil/mm3 (4.50-5.90); Red Cell Distribution Width 15.1 % (11.6-17.2)
[2018-02-25 13:43] LABS: Alanine Aminotransferase 25 U/L (12-78); Albumin 2.2 g/dL (3.4-5.0); Alkaline Phosphatase 64 U/L (45-117); Anion Gap 10 meq/L (5-15); Aspartate Aminotransferase 72 U/L (15-37); Blood Urea Nitrogen 7 mg/dL (7-18); Calcium 8.5 mg/dL (8.5-10.1); Chloride 106 meq/L (98-107); Glomerular Filtration Rate Greater Than 89 mL/min (>89); Glucose,Random 129 mg/dL (74-106); Potassium 4.1 meq/L (3.5-5.1); Sodium 139 meq/L (136-145); Total Protein 7.2 g/dL (6.4-8.2)
--- NOTE | 2018-02-25 14:35 | P.PN ---
Subjective Interval history: Follow up for dementia, Dysphagia, hx of PE. Patient is resting in bed, does not talk but just gives a stare. Discussed with family members at length. Also discussed with hospice. Current goal remains aggressive. He is unable to tolerate food by mouth. He keeps food in the mouth and does not swallow. Physical Exam Vital signs: Vital Signs 02/24/18 16:00 02/24/18 22:39 02/25/18 04:00 Temperature 98.6 F 99.4 F 99.6 F Pulse Rate 107 H 110 H 104 H Respiratory Rate 18 17 15 Blood Pressure 107/56 L 123/73 Pulse Oximetry 98 98 02/25/18 08:00 02/25/18 12:00 Temperature 98.8 F 98.8 F Pulse Rate 102 H 68 Respiratory Rate 18 18 Blood Pressure 91/52 L 132/73 Pulse Oximetry 94 L 96 Intake & Output 02/24/18 02/25/18 02/25/18 18:59 06:59 18:59 Weight 53.4 kg Other: Post Void Residual 2 # Voids 1 Weight On Admission 68.039 kg Narrative: GENERAL: Alert, NAD. Does not participate in any conversation. SKIN: Warm and dry. HEAD: Normocephalic. EYES: No scleral icterus. No injection or drainage. NECK: Supple, trachea midline. No JVD or lymphadenopathy. CARDIOVASCULAR: Regular rate and rhythm without murmurs, gallops, or rubs. RESPIRATORY: Breath sounds equal bilaterally. No accessory muscle use. GASTROINTESTINAL: Abdomen soft, non-tender, nondistended. MUSCULOSKELETAL: No cyanosis, or edema. BACK: Nontender without obvious deformity. No CVA tenderness. Results - Labs CBC & Chem 7: 02/25/18 12:55 02/25/18 12:55 Laboratory Results - last 24 hr 02/24/18 02/24/18 02/25/18 18:38 22:41 05:47 WBC RBC Hgb Hct MCV MCH MCHC RDW Plt Count MPV Neut % (Auto) Lymph % (Auto) [place] % (Auto) Eos % (Auto) Baso % (Auto) Neut # (Auto) Lymph # (Auto) [place] # (Auto) Eos # (Auto) Baso # (Auto) WBC Differential Differential Comment Sodium Potassium Chloride Carbon Dioxide Anion Gap BUN Creatinine Estimated GFR POC Glucose 161 H 166 H 176 H Random Glucose Calcium Total Bilirubin AST ALT Alkaline Phosphatase Total Protein Albumin Urine Color Urine Clarity Urine pH Ur Specific [place] Urine Protein Urine Glucose (UA) Urine Ketones Urine Occult Blood Urine Nitrate Urine Bilirubin Urine Urobilinogen Ur Leukocyte Esterase Urine RBC Urine WBC Ur Squamous Epith Cells Urine Bacteria Urine Mucus 02/25/18 02/25/18 02/25/18 08:07 11:38 12:23 WBC RBC Hgb Hct MCV MCH MCHC RDW Plt Count MPV Neut % (Auto) Lymph % (Auto) [place] % (Auto) Eos % (Auto) Baso % (Auto) Neut # (Auto) Lymph # (Auto) [place] # (Auto) Eos # (Auto) Baso # (Auto) WBC Differential Differential Comment Sodium Potassium Chloride Carbon Dioxide Anion Gap BUN Creatinine Estimated GFR POC Glucose 156 H 123 H Random Glucose Calcium Total Bilirubin AST ALT Alkaline Phosphatase Total Protein Albumin Urine Color Yellow Urine Clarity Hazy H Urine pH 5.0 Ur Specific [place] 1.018 Urine Protein Negative Urine Glucose (UA) Negative Urine Ketones 20 Urine Occult Blood Small H Urine Nitrate Negative Urine Bilirubin Negative Urine Urobilinogen Less than 2 Ur Leukocyte Esterase Negative Urine RBC 4 H Urine WBC 8 H Ur Squamous Epith Cells <1 Urine Bacteria Rare H Urine Mucus Few H 02/25/18 02/25/18 12:55 12:55 WBC 10.0 RBC 3.98 L Hgb 11.7 L Hct 33.9 L MCV 85.1 MCH 29.3 MCHC 34.4 RDW 15.1 Plt Count 395 MPV 7.3 Neut % (Auto) 84.1 H Lymph % (Auto) 8.1 L [place] % (Auto) 7.4 Eos % (Auto) 0.2 Baso % (Auto) 0.2 Neut # (Auto) 8.5 H Lymph # (Auto) 0.8 L [place] # (Auto) 0.7 Eos # (Auto) 0.0 Baso # (Auto) 0.0 WBC Differential . Differential Comment Auto diff final Sodium 139 Potassium 4.1 Chloride 106 Carbon Dioxide 23.0 Anion Gap 10 BUN 7 Creatinine 0.71 Estimated GFR Greater than 89 POC Glucose Random Glucose 129 H Calcium 8.5 D Total Bilirubin 0.4 AST 72 H ALT 25 Alkaline Phosphatase 64 Total Protein 7.2 D Albumin 2.2 L Urine Color Urine Clarity Urine pH Ur Specific [place] Urine Protein Urine Glucose (UA) Urine Ketones Urine Occult Blood Urine Nitrate Urine Bilirubin Urine Urobilinogen Ur Leukocyte Esterase Urine RBC Urine WBC Ur Squamous Epith Cells Urine Bacteria Urine Mucus Assessment and Plan - Plan This is a 77-year-old male was brought in by his family because of altered mental status. Patient is nonverbal. Reportedly patient has been losing weight and not swallowing. Every time he is given food he would spit it out. 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 Does not follow any commands. - Discussed with Family and Hospice. - Patient's family at this point want full aggressive care. - High risk for aspiration. Will keep pt on NPO status. - Start D5-LR Malnutrition - Will request IR to place PEG tube. This will not be done until 02/27. - Hold Apixaban. Hx of PE - Hold Apixaban. Full code. Will start Lovenox 40mg Qday. After PEG tube placement, we can resume Apixaban and d/c Lovenox. Likely discharge on 02/27/2018.
[2018-02-25] MEDS: Dextrose 5%/Lactated Ringer's 1,000 ML IV.CONT SCH (15:40)
[2018-02-25] MEDS: Enoxaparin Inj 40 MG/0.4 ML Syringe SQ SCH (17:45)
[2018-02-25] MEDS: Collagenase Oint 30 GM Tube TOPICAL SCH (17:45)
[2018-02-26] MEDS: Dextrose 5%/Lactated Ringer's 1,000 ML IV.CONT SCH ×2 (05:22→17:30)
[2018-02-26] MEDS: Acetaminophen 650 MG Supp RECTAL PRN ×2 (06:26→21:22)
[2018-02-26] MEDS: Insulin NovoLOG Aspart Correctional Sugar Inj SQ SCH ×4 (08:38→21:45)
[2018-02-26] MEDS: Metoprolol Tartrate 25 MG Tablet PO SCH ×2 (08:40→21:44)
--- NOTE | 2018-02-26 09:31 | XR ---
EXAM DATE: 02/26/2018 9:27 AM EDT AGE/SEX: 77 years / Male INDICATIONS: Fever. CLINICAL DATA: This is the patient's subsequent encounter. Patient reports that signs and symptoms h ave been present for 2 days and indicates a pain score of Nonresponsive. MEDICAL/SURGICAL HISTORY: . Cerebrovascular disease. Cardiovascular disease. Hypertension. Diab etes, dementia, seizures. . COMPARISON: [facility] [place] 1[place] SING[place] AP, 02/24/2018. . FINDINGS: There is moderate elevation of the left hemidiaphragm with minimal atelectasis at the left base. The lungs are clear. Heart size normal. Osseous structures are intact. CONCLUSION: Elevated left hemidiaphragm. Electronically signed by: Bruce Gatse MD 02/26/2018 9:29 AM EDT
[2018-02-26] MEDS: Collagenase Oint 30 GM Tube TOPICAL SCH (10:14)
--- NOTE | 2018-02-26 10:21 | P.PN ---
Subjective Interval history: Follow up for dementia, Dysphagia, hx of PE. Patient is alert with eyes open. However he does not speak at all. He gives a blank stare. Patient has had low- grade fever of 100.0F, 100.8F. Physical Exam Vital signs: Vital Signs 02/25/18 12:00 02/25/18 16:00 02/25/18 20:00 Temperature 98.8 F 101.2 F H 100.0 F H Pulse Rate 68 107 H 100 H Respiratory Rate 18 18 16 Blood Pressure 132/73 114/59 L 108/57 L Pulse Oximetry 96 96 97 02/25/18 22:54 02/26/18 00:00 02/26/18 04:00 Temperature 97.9 F 100.8 F H Pulse Rate 92 H 96 H Respiratory Rate 15 15 15 Blood Pressure 111/66 95/53 L Pulse Oximetry 97 02/26/18 08:00 Temperature 98.5 F Pulse Rate 100 H Respiratory Rate 17 Blood Pressure 99/54 L Pulse Oximetry 98 Intake & Output 02/25/18 02/26/18 02/26/18 18:59 06:59 18:59 Intake Total 400 / 400 1100 / 1100 Balance 400 / 400 1100 / 1100 Intake: IV 400 / 400 1100 / 1100 D5W/LR Inj 1,000 ML @ 84 mls/hr 1000 / 1000 IV.CONT .[id number] HA Rx#: [id number] NS Inj 1,000 ML @ 100 mls/hr IV 400 / 400 .CONT .Q10H HA Rx#:[id number] Ofirmev Inj 1,000 mg In 100 ml 100 / 100 @ 400 mls/hr IV.SIG ONCE ONE Rx #:[id number] Other: Post Void Residual 2 Date of Last Bowel Movement 02/25/18 02/25/18 # Bowel Movements 1 Narrative: GENERAL: Alert, NAD. Does not participate in any conversation. SKIN: Warm and dry. HEAD: Normocephalic. EYES: No scleral icterus. No injection or drainage. NECK: Supple, trachea midline. No JVD or lymphadenopathy. CARDIOVASCULAR: Regular rate and rhythm without murmurs, gallops, or rubs. RESPIRATORY: Breath sounds equal bilaterally. No accessory muscle use. GASTROINTESTINAL: Abdomen soft, non-tender, nondistended. MUSCULOSKELETAL: No cyanosis, or edema. BACK: Nontender without obvious deformity. No CVA tenderness. Results - Labs CBC & Chem 7: 02/25/18 12:55 02/25/18 12:55 Laboratory Results - last 24 hr 02/25/18 02/25/18 02/25/18 11:38 12:23 12:55 WBC 10.0 RBC 3.98 L Hgb 11.7 L Hct 33.9 L MCV 85.1 MCH 29.3 MCHC 34.4 RDW 15.1 Plt Count 395 MPV 7.3 Neut % (Auto) 84.1 H Lymph % (Auto) 8.1 L [place] % (Auto) 7.4 Eos % (Auto) 0.2 Baso % (Auto) 0.2 Neut # (Auto) 8.5 H Lymph # (Auto) 0.8 L [place] # (Auto) 0.7 Eos # (Auto) 0.0 Baso # (Auto) 0.0 WBC Differential . Differential Comment Auto diff final Sodium Potassium Chloride Carbon Dioxide Anion Gap BUN Creatinine Estimated GFR POC Glucose 123 H Random Glucose Calcium Total Bilirubin AST ALT Alkaline Phosphatase Total Protein Albumin Urine Color Yellow Urine Clarity Hazy H Urine pH 5.0 Ur Specific [place] 1.018 Urine Protein Negative Urine Glucose (UA) Negative Urine Ketones 20 Urine Occult Blood Small H Urine Nitrate Negative Urine Bilirubin Negative Urine Urobilinogen Less than 2 Ur Leukocyte Esterase Negative Urine RBC 4 H Urine WBC 8 H Ur Squamous Epith Cells <1 Urine Bacteria Rare H Urine Mucus Few H 02/25/18 02/25/18 02/25/18 12:55 17:43 21:00 WBC RBC Hgb Hct MCV MCH MCHC RDW Plt Count MPV Neut % (Auto) Lymph % (Auto) [place] % (Auto) Eos % (Auto) Baso % (Auto) Neut # (Auto) Lymph # (Auto) [place] # (Auto) Eos # (Auto) Baso # (Auto) WBC Differential Differential Comment Sodium 139 Potassium 4.1 Chloride 106 Carbon Dioxide 23.0 Anion Gap 10 BUN 7 Creatinine 0.71 Estimated GFR Greater than 89 POC Glucose 177 H 169 H Random Glucose 129 H Calcium 8.5 D Total Bilirubin 0.4 AST 72 H ALT 25 Alkaline Phosphatase 64 Total Protein 7.2 D Albumin 2.2 L Urine Color Urine Clarity Urine pH Ur Specific [place] Urine Protein Urine Glucose (UA) Urine Ketones Urine Occult Blood Urine Nitrate Urine Bilirubin Urine Urobilinogen Ur Leukocyte Esterase Urine RBC Urine WBC Ur Squamous Epith Cells Urine Bacteria Urine Mucus 02/26/18 07:54 WBC RBC Hgb Hct MCV MCH MCHC RDW Plt Count MPV Neut % (Auto) Lymph % (Auto) [place] % (Auto) Eos % (Auto) Baso % (Auto) Neut # (Auto) Lymph # (Auto) [place] # (Auto) Eos # (Auto) Baso # (Auto) WBC Differential Differential Comment Sodium Potassium Chloride Carbon Dioxide Anion Gap BUN Creatinine Estimated GFR POC Glucose 168 H Random Glucose Calcium Total Bilirubin AST ALT Alkaline Phosphatase Total Protein Albumin Urine Color Urine Clarity Urine pH Ur Specific [place] Urine Protein Urine Glucose (UA) Urine Ketones Urine Occult Blood Urine Nitrate Urine Bilirubin Urine Urobilinogen Ur Leukocyte Esterase Urine RBC Urine WBC Ur Squamous Epith Cells Urine Bacteria Urine Mucus - Imaging Impressions Chest X-Ray 02/26/18 00:00 CONCLUSION: Elevated left hemidiaphragm. Assessment and Plan - Plan This is a 77-year-old male was brought in by his family because of altered mental status. Patient is nonverbal. Reportedly patient has been losing weight and not swallowing. Every time he is given food he would spit it out. 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 Does not follow any commands. - Discussed with Family and Hospice. - Patient's family at this point want full aggressive care. - High risk for aspiration. Will keep pt on NPO status. - Continue D5-LR Malnutrition - Will request IR to place PEG tube. This will not be done until 02/27. - Hold Apixaban. Hx of PE - Hold Apixaban. Fever - Low grade fever, no obvious source. CXR today does not show any infiltrates. UA from 02/25/2018 was largely unremarkable. - Will control fever with acetaminophen. Full code. Lovenox 40mg Qday. After PEG tube placement, we can resume Apixaban and d/c Lovenox.
--- NOTE | 2018-02-26 13:17 | P.DIET ---
Nutritional Evaluation Type of nutrition evaluation: initial Nutrition consult regarding: Tube Feeding [place] [facility] [place]: [place] tube placement 02/27 Objective - Diagnosis AMS - Objective [place] body weight: 73 kg Body Weight Used for Calculations: IBW Energy Needs - Lower Range (kCal/kg): 25 Energy Needs - Upper Range (kCal/kg): 30 Lower Limit kCal/kg (kCals): 1,818 Upper Limit kCal/kg (kCals): 2,181 Lower Limit Protein Factor (Grams per Kg): 1.1 Upper Limit Protein Factor (Grams per Kg): 1.3 Lower Protein Needs (Protein): 80 Upper Protein Needs (Protein): 102 Fluid Factor (ml/kg): 28 Estimated Fluid Needs (ml): 2,036 Dietitian Reviewed in Medical Record: Current diet, Curent medications, Intake & Output, Labs, Medical history Speech Therapy Recommendations: Yes Wound Care Note: 02/24 Unstageable sacrum wound, L foot, heel and ankle wounds Objective Comments: PMH: Dementia, DM, TIA, CVA, TBI, HTN, CAD, HLD, GERD Labs include: Glu 129, POC Glu 177, 169, 168 Assessment Assessment: Pt at nutritional risk r/t need for a TF for nutrition support. Pt admitted with AMS, is nonverbal and does not swallow food. Per speech pt needs to be NPO. PEG tube to be placed tomorrow. Pt's nutritional needs as assessed above, based on [place] Body Weight. Recommend Glucerna 1.5 with a goal rate of 55 ml/hr continuous. If bolus feedings are preferred, please see below. Either method will provide 1980 kcals, 109 gms protein and 1002 mls free water which is adequate to meet pt's nutritional needs. Reviewed WOC consult. Will monitor TF tolerance. Recommendations: TF Glucerna 1.5 with goal rate 55 ml/hr continuous. If bolus feedings are preferred: 1. 360mls at 8am, 12pm, 8pm and 240mls at 4pm 2. 60mls free water flushes before and after each bolus feeding 3. 200mls free water flushes q 8 hrs to meet pt's fluid requirements Dietitian to Monitor: Intake & Output, Tube feeding tolerance, Weight change, Wound/skin status, Medical course
[2018-02-26] MEDS: Enoxaparin Inj 40 MG/0.4 ML Syringe SQ SCH (16:29)
[2018-02-27] MEDS: Dextrose 5%/Lactated Ringer's 1,000 ML IV.CONT SCH ×2 (06:55→17:54)
[2018-02-27] MEDS ORDERED: Vancomycin Consult Pharmacy 1 EACH OTHER SCH ×2 (08:00→13:00)
[2018-02-27] MEDS: Collagenase Oint 30 GM Tube TOPICAL SCH (09:04)
[2018-02-27] MEDS: Piperacil/Tazo 4.5 GM Premix 4.5 GM/100 ML BAG IV.SIG SCH ×3 (09:04→21:25)
[2018-02-27] MEDS: Metoprolol Tartrate 25 MG Tablet PO SCH ×2 (09:13→21:57)
[2018-02-27] MEDS: Insulin NovoLOG Aspart Correctional Sugar Inj SQ SCH ×4 (09:38→21:06)
--- NOTE | 2018-02-27 12:30 | P.PN ---
Subjective Interval history: Follow up for dementia, Dysphagia, hx of PE. Resting well in bed. He remains nonverbal. Alert but does not communicate. He has been running persistent fever with T-max 102.9F. Physical Exam Vital signs: Vital Signs 02/26/18 16:00 02/26/18 20:00 02/27/18 00:00 Temperature 99.0 F 102.9 F H 100.0 F H Pulse Rate 110 H 115 H 102 H Respiratory Rate 18 15 15 Blood Pressure 100/59 L 112/58 L 101/54 L Pulse Oximetry 98 98 97 02/27/18 04:00 02/27/18 08:00 02/27/18 11:37 Temperature 100.7 F H 98.3 F 99.7 F H Pulse Rate 89 97 H 99 H Respiratory Rate 16 16 16 Blood Pressure 103/55 L 98/64 L 102/64 Pulse Oximetry 98 98 02/27/18 11:39 Temperature 99.7 F H Pulse Rate 99 H Respiratory Rate 16 Blood Pressure 102/64 Pulse Oximetry 100 Intake & Output 02/26/18 02/27/18 02/27/18 18:59 06:59 18:59 Intake Total 900 / 900 1000 / 1000 Balance 900 / 900 1000 / 1000 Intake: IV 900 / 900 1000 / 1000 D5W/LR Inj 1,000 ML @ 84 mls/hr 900 / 900 1000 / 1000 IV.CONT .[id number] HA Rx#: [id number] Other: # Voids 2 Date of Last Bowel Movement 02/26/18 02/26/18 # Bowel Movements 1 Narrative: GENERAL: Alert, NAD. Does not participate in any conversation. SKIN: Warm and dry. HEAD: Normocephalic. EYES: No scleral icterus. No injection or drainage. NECK: Supple, trachea midline. No JVD or lymphadenopathy. CARDIOVASCULAR: Regular rate and rhythm without murmurs, gallops, or rubs. RESPIRATORY: Breath sounds equal bilaterally. No accessory muscle use. GASTROINTESTINAL: Abdomen soft, non-tender, nondistended. MUSCULOSKELETAL: No cyanosis, or edema. BACK: Nontender without obvious deformity. No CVA tenderness. Results - Labs CBC & Chem 7: 02/25/18 12:55 02/25/18 12:55 Laboratory Results - last 24 hr 08/01/18 08/01/18 08/02/18 12:33 17:00 09:37 POC Glucose 182 H 153 H 173 H Assessment and Plan - Plan This is a 77-year-old male was brought in by his family because of altered mental status. Patient is nonverbal. Reportedly patient has been losing weight and not swallowing. Every time he is given food he would spit it out. 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 Does not follow any commands. - Discussed with Family and Hospice. - Patient's family at this point want full aggressive care. - High risk for aspiration. Will keep pt on NPO status. - Continue D5-LR Malnutrition - Will request IR to place PEG tube. We are waiting for labs including INR/ PT. Difficult to obtain blood sample. - Hold Apixaban. Hx of PE - Hold Apixaban. Fever -Persistent fever with T-max 102.9F. -Urinalysis on 02/25/2018 was unremarkable. Chest x-ray on 02/26/2018 did not reveal any infiltrates. -Due to persistent fever, will start patient on broad-spectrum antibiotics including Zosyn and vancomycin. -We will wait for CBC, chemistry panel, lactic acid. Full code. Lovenox 40mg Qday. After PEG tube placement, we can resume Apixaban and d/c Lovenox. Discussed at length with patient's .
[2018-02-27] MEDS ORDERED: Vancomycin Inj 1,250 MG in Sodium Chlor 0.9% Inj 250 ML IV.SIG ONE (13:00)
[2018-02-27 14:02] LABS: Baso % (Auto) 0.4 % (0.0-2.0); Eos # (Auto) 0.1 th/mm3 (0.0-0.4); Eos % (Auto) 0.6 % (0.0-4.0); Hematocrit 34.3 % (39.0-51.0); Hemoglobin 11.5 gm/dL (13.0-17.0); Lymph % (Auto) 10.8 % (9.0-44.0); Mean Corpuscular HGB Conc 33.4 % (32.0-36.0); Mean Corpuscular Hemoglobin 27.5 pg (27.0-34.0); Mean Corpuscular Volume 82.4 fL (80.0-100.0); Mean Platelet Volume 7.1 fL (7.0-11.0); Mono # (Auto) 0.7 th/mm3 (0.0-0.9); Neut # (Auto) 7.4 th/mm3 (1.8-7.7); Neut % (Auto) 80.2 % (16.0-70.0); Platelet Count 451 th/mm3 (150-450); Red Blood Count 4.17 mil/mm3 (4.50-5.90); Red Cell Distribution Width 14.6 % (11.6-17.2); White Blood Count 9.2 th/mm3 (4.0-11.0)
[2018-02-27 14:10] LABS: INR 1.1 Ratio; Prothrombin Time 11.4 sec (9.8-11.6)
[2018-02-27 14:21] LABS: Anion Gap 8 meq/L (5-15); Blood Urea Nitrogen 3 mg/dL (7-18); Calcium 8.2 mg/dL (8.5-10.1); Carbon Dioxide 29.5 meq/L (21.0-32.0); Chloride 101 meq/L (98-107); Glomerular Filtration Rate Greater Than 89 mL/min (>89); Glucose,Random 179 mg/dL (74-106); Potassium 3.3 meq/L (3.5-5.1); Sodium 138 meq/L (136-145)
[2018-02-27] MEDS: Enoxaparin Inj 40 MG/0.4 ML Syringe SQ SCH (15:43)
[2018-02-27] MEDS ORDERED: fentaNYL Citrate Inj 100 MCG/2 ML Ampul ONE (16:20)
--- NOTE | 2018-02-27 17:26 | P.RAD ---
Post Procedure Progress Note - Pre Procedure Diagnosis (1) Altered mental status - Post Procedure Diagnosis (1) Altered mental status - Procedure Information Procedure Date: 02/27/18 Supervising Radiologist: Patricio Romeo MD Estimated blood loss (mL): 2 Anesthesia: Local, Analgesia - Plan of Activity Patient to Unit: Nursing Unit Patient Condition: Poor Additional Comments: G tube placed without difficulty. catheter verified to be within the stomach. Full dictated report to follow See PACS Report for procedural detail/treatment.
--- NOTE | 2018-02-27 18:13 | IR ---
EXAM DATE: 02/27/2018 5:56 PM EDT AGE/SEX: 77 years / Male INDICATIONS: Patient with a history of dementia. CLINICAL DATA: This is the patient's initial encounter. Patient reports that signs and symptoms have been present for 2 days and indicates a pain score of 0/10. MEDICAL/SURGICAL HISTORY: . Dementia Diabetes . Cardiac cath neurologic surgery COMPARISON: No prior exams available for comparison. FLUORO TIME (min): 7.6 IMAGE SERIES: 1 CONTRAST (cc): 20cc Omnipaque (iohexol) 350 MEDICATION(S): 25mcg fentanyl (Sublimaze) IV 1mg lorazepam (Ativan) IV DEVICE(S): 18 [place] gastrostomy tube . . PROCEDURE: 1. Fluoroscopically guided gastrostomy tube placement. 2. Conscious sedation with continuous EKG and oximetry monitoring. The risks, benefits and alternatives to the procedure were explained and verbal and written consent w as obtained. The site was prepped in sterile fashion. Full sterile technique was used, including ca p, mask, sterile gloves and gown and a large sterile sheet. Hand hygiene and 2% chlorhexidine and/or betadine/alcohol prep was utilized per protocol for cutaneous antisepsis. The skin and subcutaneous tissues were infiltrated with local anesthetic solution. Fluoroscopy was used to janett the position of the liver.. The stomach was insufflated with room air. The stomach is somewhat high in location to need the rib cage. A suitable site at the junction of the body and antrum was selected. Three percutaneous fasteners were placed to secure the anterior gastri c wall. A small incision was made between the fasteners. The stomach was accessed with an 18 gauge needle. A n 0.035 wire was advanced into the small bowel. The tract was dilated. The gastrostomy tube was int roduced through a peel-away sheath. The position was confirmed with an injection of contrast. Conscious sedation was performed with the prescribed dosages and duration as above in the presence of an independent trained radiology nurse to assist in the monitoring of the patient. EKG and oximetry remained stable throughout the procedure. The patient tolerated the procedure well and there were n o complications. The patient was sent to post anesthesia recovery in stable condition. CONCLUSION: 1. Uncomplicated gastrostomy tube placement as above. Tube position within the stomach was verified. Electronically signed by: Patricio Romeo MD 02/27/2018 6:12 PM EDT
[2018-02-27] MEDS: Acetaminophen 650 MG Supp RECTAL PRN (21:57)
[2018-02-28] MEDS: Vancomycin Inj 750 MG in Sodium Chlor 0.9% Inj 250 ML IV.SIG SCH ×2 (01:09→13:20)
[2018-02-28] MEDS: Piperacil/Tazo 4.5 GM Premix 4.5 GM/100 ML BAG IV.SIG SCH ×4 (03:44→21:10)
[2018-02-28] MEDS: Dextrose 5%/Lactated Ringer's 1,000 ML IV.CONT SCH ×3 (05:46→15:47)
[2018-02-28] MEDS: Metoprolol Tartrate 25 MG Tablet PO SCH ×2 (09:30→21:04)
[2018-02-28] MEDS: Collagenase Oint 30 GM Tube TOPICAL SCH (09:30)
[2018-02-28] MEDS: Insulin NovoLOG Aspart Correctional Sugar Inj SQ SCH ×4 (10:04→21:30)
--- NOTE | 2018-02-28 12:55 | P.PN ---
Subjective Interval history: Follow up for dementia, Dysphagia, hx of PE and possible aspiration pneumonia. Patient is currently resting in bed. Had low grade fever. However, he has not had any fever over 99.7 since midnight. PEG tube was placed on 02/27/2018. Physical Exam Vital signs: Vital Signs 02/27/18 19:37 02/27/18 23:00 02/28/18 00:00 Temperature 100.9 F H 101.4 F H Pulse Rate 120 H 101 H 104 H Respiratory Rate 18 15 Blood Pressure 119/64 124/68 Pulse Oximetry 100 100 02/28/18 01:37 02/28/18 04:00 02/28/18 08:00 Temperature 98.2 F 99.7 F H 98.6 F Pulse Rate 92 H 99 H Respiratory Rate 15 16 Blood Pressure 106/66 112/71 Pulse Oximetry 98 02/28/18 12:00 Temperature 98.2 F Pulse Rate 97 H Respiratory Rate 16 Blood Pressure 118/66 Pulse Oximetry Intake & Output 02/27/18 02/28/18 02/28/18 18:59 06:59 18:59 Intake Total 1200 / 1200 1457.5 / 1457.5 262.5 / 262.5 Balance 1200 / 1200 1457.5 / 1457.5 262.5 / 262.5 Weight 59.8 kg Intake: IV 1200 / 1200 1457.5 / 1457.5 262.5 / 262.5 D5W/LR Inj 1,000 ML @ 84 mls/hr 1000 / 1000 1000 / 1000 IV.CONT .[id number] HA Rx#: [id number] Zosyn 4.5 GM Premix 4.5 gm In 200 / 200 200 / 200 100 ml @ 200 mls/hr IV.SIG Q6H HA Rx#:[id number] Vancomycin Inj 750 MG In NS Inj 257.5 / 257.5 250 ML @ 250 mls/hr IV.SIG Q12H HA Rx#:[id number] Other: # Voids 1 Date of Last Bowel Movement 02/26/18 Narrative: GENERAL: Alert, NAD. Does not participate in any conversation. SKIN: Warm and dry. HEAD: Normocephalic. EYES: No scleral icterus. No injection or drainage. NECK: Supple, trachea midline. No JVD or lymphadenopathy. CARDIOVASCULAR: Regular rate and rhythm without murmurs, gallops, or rubs. RESPIRATORY: Breath sounds equal bilaterally. No accessory muscle use. GASTROINTESTINAL: Abdomen soft, non-tender, nondistended. MUSCULOSKELETAL: No cyanosis, or edema. BACK: Nontender without obvious deformity. No CVA tenderness. Results - Labs CBC & Chem 7: 02/27/18 13:38 02/27/18 13:35 Laboratory Results - last 24 hr 02/27/18 02/27/18 02/27/18 13:07 13:35 13:35 WBC RBC Hgb Hct MCV MCH MCHC RDW Plt Count MPV Neut % (Auto) Lymph % (Auto) [place] % (Auto) Eos % (Auto) Baso % (Auto) Neut # (Auto) Lymph # (Auto) [place] # (Auto) Eos # (Auto) Baso # (Auto) WBC Differential Differential Comment PT 11.4 INR 1.1 Sodium 138 Potassium 3.3 L Chloride 101 Carbon Dioxide 29.5 Anion Gap 8 BUN 3 L Creatinine 0.58 L Estimated GFR Greater than 89 POC Glucose 181 H Random Glucose 179 H Lactic Acid Calcium 8.2 L 02/27/18 02/27/18 02/27/18 13:35 13:38 21:04 WBC 9.2 RBC 4.17 L Hgb 11.5 L Hct 34.3 L MCV 82.4 MCH 27.5 MCHC 33.4 RDW 14.6 Plt Count 451 H MPV 7.1 Neut % (Auto) 80.2 H Lymph % (Auto) 10.8 [place] % (Auto) 8.0 Eos % (Auto) 0.6 Baso % (Auto) 0.4 Neut # (Auto) 7.4 Lymph # (Auto) 1.0 [place] # (Auto) 0.7 Eos # (Auto) 0.1 Baso # (Auto) 0.0 WBC Differential . Differential Comment Auto diff final PT INR Sodium Potassium Chloride Carbon Dioxide Anion Gap BUN Creatinine Estimated GFR POC Glucose 144 H Random Glucose Lactic Acid 1.6 Calcium 02/28/18 09:15 WBC RBC Hgb Hct MCV MCH MCHC RDW Plt Count MPV Neut % (Auto) Lymph % (Auto) [place] % (Auto) Eos % (Auto) Baso % (Auto) Neut # (Auto) Lymph # (Auto) [place] # (Auto) Eos # (Auto) Baso # (Auto) WBC Differential Differential Comment PT INR Sodium Potassium Chloride Carbon Dioxide Anion Gap BUN Creatinine Estimated GFR POC Glucose 152 H Random Glucose Lactic Acid Calcium Microbiology 02/27/18 13:35 Blood - Peripheral Aerobic Blood Culture - Preliminary No growth in 1 day 02/27/18 13:35 Blood - Peripheral Anaerobic Blood Culture - Preliminary No growth in 1 day 02/27/18 09:47 Blood - Peripheral Aerobic Blood Culture - Preliminary No growth in 1 day 02/27/18 09:47 Blood - Peripheral Anaerobic Blood Culture - Preliminary No growth in 1 day - Imaging Impressions Gastrostomy Tube Placement 02/27/18 00:00 CONCLUSION: 1. Uncomplicated gastrostomy tube placement as above. Tube position within the stomach was verified. Assessment and Plan - Plan This is a 77-year-old male was brought in by his family because of altered mental status. Patient is nonverbal. Reportedly patient has been losing weight and not swallowing. Every time he is given food he would spit it out. 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 Does not follow any commands. - Discussed with Family and Hospice. - Patient's family at this point want full aggressive care. - High risk for aspiration. Will keep pt on NPO status. - Will d/c D5-LR when tube feeding starts. Malnutrition - PEG tube placed on 02/27/2018. Will start Glucerna 1.5 with a goal 45cc/ hour. Stem Dryer Maintainer to adjust the rate. Hx of PE - D/C Lovenox. re-start Apixaban. Fever -Low grade fever. -Urinalysis on 02/25/2018 was unremarkable. Chest x-ray on 02/26/2018 did not reveal any infiltrates. -Continue broad-spectrum antibiotics including Zosyn and vancomycin. -Possibly due to aspiration although IV access is a possible source. RN to check date of patient's IV line. Mild Hypokalemia - K+ is 3.3. Will replace with KCL via PEG tube. Full code. Apixaban 5mg BID.
--- NOTE | 2018-02-28 13:21 | P.CONID ---
History of Present Illness Service: ID Consult date: 02/28/18 Requesting Physician: Andres Monique Reason for Consult: fever Primary Care Provider: Manjit Jiménez MD Family Provider: Manjit Jiménez MD History of Present Illness: pt is non verbal and unable to provide history 77 yo male with advanced dementia presented with mental status change and inabiliity to swallow He got PEG placed CXR on presentation was negative 3and pt was afebrile Noted to have fevers in the last 72 hrs up to 102.9 started on vancomycin, zosyn negative blood clx @ 1 day Review of Systems unobtainable due to mental condition (dementia) PMFSH - History History Provided By: Family Member - Medical History Medical History: Medical History (Last Reviewed 02/28/18 @ 13:44 by Cassidy Danielle MD) Dementia Diabetes - Surgical History Surgical History: Surgical History (Last Reviewed 02/28/18 @ 13:44 by Cassidy Danielle MD) History of cardiac cath History of neurologic surgery - Family History Family History: Family History (Last Reviewed 02/28/18 @ 13:44 by Cassidy Danielle MD) Other HLD (hyperlipidemia) - Tobacco History Second Hand Smoke Exposure: No Smoking Status: Never smoker - Alcohol History How Often Do You Have a Drink Containing Alcohol: Never - Substance Use History Substance History: No History of Abuse - Travel History Recent Travel in the [place] Within the Last 8 Weeks: No Recent Travel Out of the Country Within the Last 8 Weeks: No - Immunization History Tetanus Immunization: Unsure Medications and Allergies Active Medications: Active Medications Acetaminophen (Tylenol Supp) 650 mg RECTAL Q4H PRN PRN Reason: FEVER > 100.4 F Last Admin: 02/27/18 21:57 Dose: 650 mg Apixaban (Eliquis) 5 mg PO BID [facility] Last Admin: 02/25/18 09:33 Dose: Not Given Bisacodyl (Dulcolax Supp) 10 mg RECTAL DAILY PRN PRN Reason: SEVERE CONSITIPATION Collagenase (Santyl Oint) 1 applicatio TOPICAL DAILY [facility] Last Admin: 02/28/18 09:30 Dose: 1 applicatio Dextrose (D50w Vial) 50 ml IV.PUSH UNSCH PRN PRN Reason: PER HYPOGLYCEMIA PROTOCOL Donepezil HCl (Aricept) 2.5 mg PO DAILY [facility] Last Admin: 02/28/18 09:30 Dose: 2.5 mg Glucagon (Glucagon Inj) 1 mg OTHER PRN PRN PRN Reason: for Hypoglycemia Protocol Last Admin: 02/27/18 17:05 Dose: 1 mg Dextrose/Lactated Ringer's (D5w/Lr Inj) 1,000 mls @ 84 mls/hr IV.CONT .[id number] [facility] Last Admin: 02/28/18 06:08 Dose: 84 mls/hr Piperacillin/Tazobactam/Dextrose (Zosyn 4.5 Gm Premix) 4.5 gm in 100 mls @ 200 mls/hr IV.SIG Q6H [facility] Last Infusion: 02/28/18 09:40 Dose: Infused Pharmacy Profile Note (Vancomycin Consult Pharmacy) 0 mls @ 0 mls/hr OTHER UNSCH [facility] Vancomycin HCl 750 mg/ Sodium (Chloride) 257.5 mls @ 250 mls/hr IV.SIG Q12H [facility] Last Infusion: 02/28/18 03:45 Dose: Infused Insulin Aspart (Novolog Insulin Correctional Sugar Inj) 0 unit SQ ACHS [facility]; Protocol Last Admin: 02/28/18 10:04 Dose: Not Given Memantine (Namenda) 10 mg PO BID [facility] Last Admin: 02/28/18 09:30 Dose: 10 mg Metoprolol Tartrate (Lopressor) 12.5 mg PO BID [facility] Last Admin: 02/28/18 09:30 Dose: 12.5 mg Miscellaneous (Pill Splitter) 1 each OTHER UNSCH PRN PRN Reason: PILL SPLITTING Miscellaneous Information ([facility] Ordered Lab Info) 0 each OTHER ONCE ONE Stop: 03/01/18 00:46 Ondansetron HCl (Zofran Odt) 4 mg PO Q6H PRN PRN Reason: NAUSEA OR VOMITING Pantoprazole Sodium (Protonix) 40 mg PO DAILY [facility] Last Admin: 02/28/18 09:00 Dose: Not Given Potassium Bicarb/Potassium Chloride (K-Lyte Cl Eff) 25 meq G-TUBE BID [facility] Stop: 03/03/18 20:59 Pravastatin Sodium (Pravachol) 80 mg PO HS [facility] Last Admin: 02/27/18 21:57 Dose: 80 mg Allergies Allergy/AdvReac Type Severity Reaction Status Date / Time No Known Allergies Allergy Verified 02/24/18 02:34 Home Medications Medication Instructions Recorded Confirmed Type Levemir U-100 Insulin 10 unit SUB-Q DAILY 02/24/18 02/24/18 History apixaban [Eliquis] 5 mg PO BID 02/24/18 02/24/18 History donepezil 2.5 mg PO DAILY 02/24/18 02/24/18 History insulin aspart U-100 [Novolog 1 sliding scale dose SUB-Q UD 02/24/18 02/24/18 History U-100 Insulin aspart] memantine 10 mg PO BID 02/24/18 02/24/18 History metoprolol tartrate 12.5 mg PO BID 02/24/18 02/24/18 History omeprazole 40 mg PO DAILY 02/24/18 02/24/18 History simvastatin 40 mg PO QPM 02/24/18 02/24/18 History zinc 50 mg PO DAILY 02/24/18 02/24/18 History Exam Vital signs: Vital Signs 02/27/18 19:37 02/27/18 23:00 02/28/18 00:00 Temperature 100.9 F H 101.4 F H Pulse Rate 120 H 101 H 104 H Respiratory Rate 18 15 Blood Pressure 119/64 124/68 Pulse Oximetry 100 100 02/28/18 01:37 02/28/18 04:00 02/28/18 08:00 Temperature 98.2 F 99.7 F H 98.6 F Pulse Rate 92 H 99 H Respiratory Rate 15 16 Blood Pressure 106/66 112/71 Pulse Oximetry 98 02/28/18 12:00 02/28/18 12:49 Temperature 98.2 F Pulse Rate 97 H Respiratory Rate 16 Blood Pressure 118/66 Pulse Oximetry 99 Intake & Output 02/27/18 02/28/18 02/28/18 18:59 06:59 18:59 Intake Total 1200 / 1200 1457.5 / 1457.5 362.5 / 362.5 Balance 1200 / 1200 1457.5 / 1457.5 362.5 / 362.5 Weight 59.8 kg Intake: IV 1200 / 1200 1457.5 / 1457.5 362.5 / 362.5 D5W/LR Inj 1,000 ML @ 84 mls/hr 1000 / 1000 1000 / 1000 IV.CONT .[id number] [facility] Rx#: [id number] Zosyn 4.5 GM Premix 4.5 gm In 200 / 200 200 / 200 100 / 100 100 ml @ 200 mls/hr IV.SIG Q6H [facility] Rx#:[id number] Vancomycin Inj 750 MG In NS Inj 257.5 / 257.5 250 ML @ 250 mls/hr IV.SIG Q12H [facility] Rx#:[id number] Other: # Voids 1 Date of Last Bowel Movement 02/26/18 - Constitutional no acute distress, thin, cachectic, chronically ill appearing - Routine HEENT Exam Head: Present: normocephalic, atraumatic Eye: Present: EOMI, PERRL ENT: Present: mucous membranes moist Comments: barely oprnes mouth. non cooperative on exam dentition poor - Routine Neck Exam Present: supple, full ROM - Routine Respiratory Exam Present: CTA bilaterally Comments: good effort - Routine Cardiovascular Exam Present: RRR, S1, S2 Comments: no murmurs, rubs or gallops cold feet and hands refill is delayed - Routine Abdominal Exam Present: soft, normoactive bowel sounds, tenderness Comments: no organomegaly PEG in place , s,mmall amount of blood noted - Routine Extremities Exam Present: cyanosis Comments: no edema refuill delayed + cyanosis severe loss of muscle bulk - Routine Skin Exam Present: lesions Comments: stage II scaral ulcers, clean unstagible L heel pressure injry, stage I R heel pressure injury - Routine Neurological Exam Present: alert contracted non verbla not following commands not really making eye contact - Routine Psychiatric Exam Present: unable to assess Results - Labs CBC & Chem 7: 03/16/18 12:56 03/16/18 12:56 Labs: Laboratory Results - last 24 hr 02/27/18 02/27/18 02/27/18 13:35 13:35 13:35 WBC RBC Hgb Hct MCV MCH MCHC RDW Plt Count MPV Neut % (Auto) Lymph % (Auto) [place] % (Auto) Eos % (Auto) Baso % (Auto) Neut # (Auto) Lymph # (Auto) [place] # (Auto) Eos # (Auto) Baso # (Auto) WBC Differential Differential Comment PT 11.4 INR 1.1 Sodium 138 Potassium 3.3 L Chloride 101 Carbon Dioxide 29.5 Anion Gap 8 BUN 3 L Creatinine 0.58 L Estimated GFR Greater than 89 POC Glucose Random Glucose 179 H Lactic Acid 1.6 Calcium 8.2 L 02/27/18 02/27/18 02/28/18 13:38 21:04 09:15 WBC 9.2 RBC 4.17 L Hgb 11.5 L Hct 34.3 L MCV 82.4 MCH 27.5 MCHC 33.4 RDW 14.6 Plt Count 451 H MPV 7.1 Neut % (Auto) 80.2 H Lymph % (Auto) 10.8 [place] % (Auto) 8.0 Eos % (Auto) 0.6 Baso % (Auto) 0.4 Neut # (Auto) 7.4 Lymph # (Auto) 1.0 [place] # (Auto) 0.7 Eos # (Auto) 0.1 Baso # (Auto) 0.0 WBC Differential . Differential Comment Auto diff final PT INR Sodium Potassium Chloride Carbon Dioxide Anion Gap BUN Creatinine Estimated GFR POC Glucose 144 H 152 H Random Glucose Lactic Acid Calcium - Imaging Impressions Gastrostomy Tube Placement 02/27/18 00:00 CONCLUSION: 1. Uncomplicated gastrostomy tube placement as above. Tube position within the stomach was verified. Assessment and Plan - Plan Advanced dementia Disphagia sp PEG New fever ? source diffentail includes PNA, intraabd sepsis UTI cont zosyn, vanco Lactic acid CXR CT chest, abd/pel if cont to have unexplained fever and/or other sepsis signs UA, C+S fu blood clx
--- NOTE | 2018-02-28 14:33 | XR ---
EXAM DATE: 02/28/2018 2:23 PM EDT AGE/SEX: 77 years / Male INDICATIONS: Cough. CLINICAL DATA: This is the patient's subsequent encounter. Patient reports that signs and symptoms h ave been present for 1 day and indicates a pain score of Nonresponsive. MEDICAL/SURGICAL HISTORY: . Cerebrovascular disease. Cardiovascular disease. Hypertension. Diab etes, dementia, seizures. . None. COMPARISON: [facility], CHEST 1V SINGLE AP, 02/26/2018. . FINDINGS: 2 AP views of the chest. The patient is rotated into the ENGLISH position. Lungs are grossly clear. No ev idence of pleural effusion or pneumothorax. CONCLUSION: Negative examination. Electronically signed by: Diego Wilder MD 02/28/2018 2:32 PM EDT
[2018-02-28] MEDS ORDERED: Diatrizoate Meglum/Diatrizoate Sod Liq 9 ML UDC PO ONE (20:15)
[2018-02-28] MEDS: Potassium Chloride 25 MEQ Effervescent Tablet G-TUBE SCH (21:04)
[2018-03-01] MEDS ORDERED: Pharmacy Ordered Lab Info OTHER ONE (00:45)
[2018-03-01] MEDS: Vancomycin Inj 750 MG in Sodium Chlor 0.9% Inj 250 ML IV.SIG SCH (00:46)
--- NOTE | 2018-03-01 03:58 | CT ---
EXAM DATE: 03/01/2018 3:23 AM EDT AGE/SEX: 77 years / Male INDICATIONS: Abdominal pain, fever. CLINICAL DATA: This is the patient's initial encounter. Patient reports that signs and symptoms have been present for 1 day and indicates a pain score of 4/10. MEDICAL/SURGICAL HISTORY: Diabetes. Dementia. . Cardiac cath. Neuro surgery. ORAL CONTRAST: Prescribed oral contrast ingested. RADIATION DOSE: 7.99 CTDI (mGy) COMPARISON: No prior exams available for comparison. TECHNIQUE: Multiple contiguous axial images were obtained through the abdomen and pelvis following b olus infusion of 97 ml Omnipaque 350 (iohexol) nonionic water-soluble contrast as a single exam dos e. Prescribed oral contrast ingested. Using automated exposure control and adjustment of the mA and/ or kV according to patient size, radiation dose was kept as low as reasonably achievable to obtain op timal diagnostic quality images. DICOM format image data is available electronically for review and comparison. FINDINGS: Mild image degradation due to the patient's arms being the [id number] of the scan. Lower Lungs: The visualized lower lungs are clear. Liver: The liver has a homogeneous density without space-occupying lesion. There is no dilation of th e biliary tree. No calcified gallstones. Spleen: Homogeneous density without enlargement. 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 Pancreas: Unremarkable without mass or calcification. There is a smooth margin cyst in the junction of the body and head measuring 1.4 cm. No pancreatic ductal dilatation. Kidneys: Normal in size and shape. No evidence of mass or hydronephrosis. Adrenal Glands: Unremarkable. Aorta: The aorta and proximal iliac vessels are grossly unremarkable without aneurysmal dilation. Bowel/Mesentery: Oral contrast passes through to the rectum. No dilated loops of small or large britta l. The stomach is high in position due to eventration of the diaphragm. Abdominal Wall: Intact. Retroperitoneum: No evidence of adenopathy in the retrocrural, para-aortic, or deep pelvic regions. Bladder: Contours are smooth. Reproductive Organs: No abnormal masses or calcifications seen. Inguinal: The inguinal region is unremarkable without evidence of adenopathy. Bony Structures: Unremarkable. CONCLUSION: 1. Benign appearing cyst in the pancreas. 2. No evidence of ileus. No evidence of free fluid. Electronically signed by: Dontrell Hernandez MD 03/01/2018 3:57 AM EDT
[2018-03-01] MEDS: Dextrose 5%/Lactated Ringer's 1,000 ML IV.CONT SCH ×2 (04:59→18:09)
[2018-03-01] MEDS: Piperacil/Tazo 4.5 GM Premix 4.5 GM/100 ML BAG IV.SIG SCH ×4 (05:00→23:11)
--- NOTE | 2018-03-01 08:40 | P.PN ---
Physical Exam Vital signs: Vital Signs 02/28/18 12:00 02/28/18 12:49 02/28/18 16:00 Temperature 98.2 F 100.3 F H Pulse Rate 97 H 115 H Respiratory Rate 16 Blood Pressure 118/66 128/72 Pulse Oximetry 99 02/28/18 17:33 02/28/18 20:00 03/01/18 00:00 Temperature 97.0 F L 97.5 F L 99.7 F H Pulse Rate 111 H 113 H 115 H Respiratory Rate 16 17 18 Blood Pressure 107/59 L 128/60 123/80 Pulse Oximetry 95 95 100 03/01/18 04:00 Temperature 98.2 F Pulse Rate 119 H Respiratory Rate 18 Blood Pressure 123/67 Pulse Oximetry 100 Intake & Output 02/28/18 03/01/18 03/01/18 18:59 06:59 18:59 Intake Total 720.0 / 720.0 1557.5 / 1557.5 790 / 790 Balance 720.0 / 720.0 1557.5 / 1557.5 790 / 790 Weight 63.8 kg Intake: IV 720.0 / 720.0 1457.5 / 1457.5 D5W/LR Inj 1,000 ML @ 84 mls/hr 1000 / 1000 IV.CONT .[id number] [facility] Rx#: [id number] Zosyn 4.5 GM Premix 4.5 gm In 200 / 200 200 / 200 100 ml @ 200 mls/hr IV.SIG Q6H [facility] Rx#:[id number] Vancomycin Inj 750 MG In NS Inj 257.5 / 257.5 257.5 / 257.5 250 ML @ 250 mls/hr IV.SIG Q12H [facility] Rx#:[id number] Tube Feeding 390 / 390 Water Bolus Amount 100 / 100 400 / 400 Other: # Voids 1 3 Date of Last Bowel Movement 03/01/18 # Incontinent Bowel Movements 1 Narrative: Subjective Interval history: Follow up for dementia, Dysphagia, hx of PE and possible aspiration pneumonia. Patient is in bed, not talking, doesn't appear in acute distress. He is not coughing. No n/v/d/c. Physical Exam GENERAL: Elderly male, appears in nad, with dementia SKIN: Warm and dry. CARDIOVASCULAR: Regular rate and rhythm without murmurs, gallops, or rubs. RESPIRATORY: Breath sounds equal bilaterally. No accessory muscle use. GASTROINTESTINAL: Abdomen soft, non-tender, nondistended. MUSCULOSKELETAL: No cyanosis, or edema. BACK: Nontender without obvious deformity. No CVA tenderness. Assessment and Plan This is a 77-year-old male was brought in by his family because of altered mental status. Patient is nonverbal. Reportedly patient has been losing weight and not swallowing. Every time he is given food he would spit it out. 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 Does not follow any commands. - Discussed with Family and Hospice. - Patient's family at this point want full aggressive care. - High risk for aspiration. Will keep pt on NPO status. - Will d/c D5-LR when tube feeding starts. Malnutrition - PEG tube placed on 02/27/2018. Will start Glucerna 1.5 with a goal 45cc/ hour. Master Barber to adjust the rate. Hx of PE - D/C Lovenox. re-start Apixaban. Fever -Low grade fever. -Urinalysis on 02/25/2018 was unremarkable. Chest x-ray on 02/26/2018 did not reveal any infiltrates. -Continue broad-spectrum antibiotics including Zosyn and vancomycin. -Possibly due to aspiration although IV access is a possible source. RN to check date of patient's IV line. Mild Hypokalemia - K+ is 3.3. Will replace with KCL via PEG tube. Full code. Apixaban 5mg BID. Results - Labs CBC & Chem 7: 02/27/18 13:38 02/27/18 13:35 Laboratory Results - last 24 hr 02/28/18 02/28/18 02/28/18 09:15 15:37 18:02 POC Glucose 152 H 162 H Lactic Acid 2.8 H Vancomycin Trough 02/28/18 03/01/18 03/01/18 21:19 00:45 07:51 POC Glucose 203 H 161 H Lactic Acid Vancomycin Trough 12.0 H Microbiology 02/27/18 13:35 Blood - Peripheral Aerobic Blood Culture - Preliminary No growth in 1 day 02/27/18 13:35 Blood - Peripheral Anaerobic Blood Culture - Preliminary No growth in 1 day 02/27/18 09:47 Blood - Peripheral Aerobic Blood Culture - Preliminary No growth in 1 day 02/27/18 09:47 Blood - Peripheral Anaerobic Blood Culture - Preliminary No growth in 1 day - Imaging Impressions Gastrostomy Tube Placement 02/27/18 00:00 CONCLUSION: 1. Uncomplicated gastrostomy tube placement as above. Tube position within the stomach was verified. Chest X-Ray 02/28/18 13:52 CONCLUSION: Negative examination. Abdomen/Pelvis CT 03/01/18 00:00 CONCLUSION: 1. Benign appearing cyst in the pancreas. 2. No evidence of ileus. No evidence of free fluid. - Procedures PEG tube was placed on 02/27/2018.
[2018-03-01] MEDS: Insulin NovoLOG Aspart Correctional Sugar Inj SQ SCH ×4 (09:32→21:47)
[2018-03-01] MEDS: Potassium Chloride 25 MEQ Effervescent Tablet G-TUBE SCH ×2 (09:33→21:46)
[2018-03-01] MEDS: Metoprolol Tartrate 25 MG Tablet PO SCH ×2 (09:34→21:47)
[2018-03-01] MEDS: Collagenase Oint 30 GM Tube TOPICAL SCH (09:35)
[2018-03-01] MEDS: Vancomycin Inj 1,000 MG in Sodium Chlor 0.9% Inj 250 ML IV.SIG SCH (13:10)
[2018-03-01] MEDS: Acetaminophen 650 MG Supp RECTAL PRN (16:43)
[2018-03-02] MEDS: Vancomycin Inj 1,000 MG in Sodium Chlor 0.9% Inj 250 ML IV.SIG SCH ×2 (01:07→12:30)
[2018-03-02] MEDS: Piperacil/Tazo 4.5 GM Premix 4.5 GM/100 ML BAG IV.SIG SCH ×4 (04:20→22:56)
[2018-03-02 09:29] LABS: Glomerular Filtration Rate Greater Than 89 mL/min (>89)
--- NOTE | 2018-03-02 09:40 | P.PN ---
Physical Exam Vital signs: Vital Signs 03/01/18 12:00 03/01/18 16:00 03/01/18 16:43 Temperature 99.9 F H 101.5 F H Pulse Rate 100 H 105 H Respiratory Rate 18 18 18 Blood Pressure 109/57 L 115/55 L Pulse Oximetry 98 03/01/18 20:00 03/02/18 00:00 03/02/18 04:00 Temperature 99.6 F 98.4 F 98.6 F Pulse Rate 104 H 105 H 101 H Respiratory Rate 17 16 18 Blood Pressure 106/59 L 106/76 103/58 L Pulse Oximetry 98 100 03/02/18 08:00 Temperature 99.1 F Pulse Rate 94 H Respiratory Rate 18 Blood Pressure 107/57 L Pulse Oximetry Intake & Output 03/01/18 03/02/18 03/02/18 18:59 06:59 18:59 Intake Total 1890 / 1890 1414 / 1414 Balance 1890 / 1890 1414 / 1414 Weight 59.8 kg Intake: IV 1100 / 1100 1414 / 1414 D5W/LR Inj 1,000 ML @ 84 mls/hr 1000 / 1000 614 / 614 IV.CONT .[id number] [facility] Rx#: [id number] Zosyn 4.5 GM Premix 4.5 gm In 100 / 100 300 / 300 100 ml @ 200 mls/hr IV.SIG Q6H [facility] Rx#:[id number] Vancomycin Inj 1,000 MG In NS 500 / 500 Inj 250 ML @ 250 mls/hr IV.SIG Q12H [facility] Rx#:[id number] Tube Feeding 390 / 390 Water Bolus Amount 400 / 400 Other: # Voids 4 Date of Last Bowel Movement 03/02/18 03/01/18 # Incontinent Bowel Movements 4 Narrative: Subjective Interval history: Follow up for dementia, Dysphagia, hx of PE and possible aspiration pneumonia. flat affect not interactive, watching TV, doesn't appear in acute distress. He is not coughing. No n/v/d/c. Physical Exam GENERAL: Elderly male, appears in nad, with dementia SKIN: Warm and dry. CARDIOVASCULAR: Regular rate and rhythm without murmurs, gallops, or rubs. RESPIRATORY: Breath sounds equal bilaterally. No accessory muscle use. GASTROINTESTINAL: Abdomen soft, non-tender, nondistended. MUSCULOSKELETAL: No cyanosis, or edema. BACK: Nontender without obvious deformity. No CVA tenderness. Assessment and Plan This is a 77-year-old male was brought in by his family because of altered mental status. Patient is nonverbal. Reportedly patient has been losing weight and not swallowing. Every time he is given food he would spit it out. 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 Does not follow any commands. - Discussed with Family and Hospice. - Patient's family at this point want full aggressive care. - High risk for aspiration. Will keep pt on NPO status. - Will d/c D5-LR when tube feeding starts. Malnutrition - PEG tube placed on 02/27/2018. Will start Glucerna 1.5 with a goal 45cc/ hour. Cutter Apprentice Hand to adjust the rate. Hx of PE - D/C Lovenox. re-start Apixaban. Fever -Low grade fever. -Urinalysis on 02/25/2018 was unremarkable. Chest x-ray on 02/26/2018 did not reveal any infiltrates. -Continue broad-spectrum antibiotics including Zosyn and vancomycin. ID consulted appreciate recommendations. Follow up cultures -Possibly due to aspiration although IV access is a possible source. RN to check date of patient's IV line. Mild Hypokalemia - K+ is 3.3. Will replace with KCL via PEG tube. Full code. Apixaban 5mg BID. Results - Labs CBC & Chem 7: 02/27/18 13:38 03/02/18 08:05 Laboratory Results - last 24 hr 03/01/18 03/01/18 03/01/18 12:39 18:15 20:22 Creatinine Estimated GFR POC Glucose 149 H 202 H 222 H 03/02/18 03/02/18 07:45 08:05 Creatinine 0.77 Estimated GFR Greater than 89 POC Glucose 248 H Microbiology 02/27/18 13:35 Blood - Peripheral Aerobic Blood Culture - Preliminary No growth in 2 days 02/27/18 13:35 Blood - Peripheral Anaerobic Blood Culture - Preliminary No growth in 2 days 02/27/18 09:47 Blood - Peripheral Aerobic Blood Culture - Preliminary No growth in 2 days 02/27/18 09:47 Blood - Peripheral Anaerobic Blood Culture - Preliminary No growth in 2 days - Procedures PEG tube was placed on 02/27/2018.
[2018-03-02] MEDS: Metoprolol Tartrate 25 MG Tablet PO SCH ×2 (10:05→21:55)
[2018-03-02] MEDS: Potassium Chloride 25 MEQ Effervescent Tablet G-TUBE SCH ×2 (10:06→21:55)
[2018-03-02] MEDS: Insulin NovoLOG Aspart Correctional Sugar Inj SQ SCH ×4 (10:08→21:55)
[2018-03-02] MEDS: Collagenase Oint 30 GM Tube TOPICAL SCH (10:09)
[2018-03-02] MEDS: Dextrose 5%/Lactated Ringer's 1,000 ML IV.CONT SCH ×2 (10:09→16:28)
[2018-03-03] MEDS ORDERED: Pharmacy Ordered Lab Info OTHER ONE (00:45)
[2018-03-03] MEDS: Vancomycin Inj 1,000 MG in Sodium Chlor 0.9% Inj 250 ML IV.SIG SCH (01:09)
[2018-03-03] MEDS: Dextrose 5%/Lactated Ringer's 1,000 ML IV.CONT SCH ×2 (01:09→14:56)
[2018-03-03] MEDS: Piperacil/Tazo 4.5 GM Premix 4.5 GM/100 ML BAG IV.SIG SCH ×3 (04:10→18:30)
--- NOTE | 2018-03-03 08:54 | P.PN ---
Physical Exam Vital signs: Vital Signs 03/02/18 12:00 03/02/18 16:00 03/02/18 20:00 Temperature 99.1 F 99.6 F 98.4 F Pulse Rate 92 H 106 H 110 H Respiratory Rate 18 18 18 Blood Pressure 118/62 109/60 122/69 Pulse Oximetry 99 97 03/03/18 00:00 03/03/18 04:00 Temperature 98.6 F 98.3 F Pulse Rate 101 H 108 H Respiratory Rate 16 16 Blood Pressure 111/64 124/69 Pulse Oximetry 99 98 Intake & Output 03/02/18 03/03/18 03/03/18 18:59 06:59 18:59 Intake Total 100 / 100 1840 / 1840 Balance 100 / 100 1840 / 1840 Weight 59.3 kg Intake: IV 100 / 100 800 / 800 Zosyn 4.5 GM Premix 4.5 gm In 100 / 100 300 / 300 100 ml @ 200 mls/hr IV.SIG Q6H [facility] Rx#:[id number] Vancomycin Inj 1,000 MG In NS 500 / 500 Inj 250 ML @ 250 mls/hr IV.SIG Q12H [facility] Rx#:[id number] Tube Feeding 540 / 540 Water Bolus Amount 500 / 500 Other: # Voids 3 # Incontinent Voids 4 Date of Last Bowel Movement 03/01/18 03/03/18 # Bowel Movements 2 # Incontinent Bowel Movements 3 Narrative: Subjective Interval history: Follow up for dementia, Dysphagia, hx of PE and possible aspiration pneumonia. Flat affect, at bedside, the patient is noted more awake and alert, he is more interactive, however not talking. Patient appears improved today. Doesn' t appear in acute distress. He is not coughing. No n/v/d/c. Physical Exam GENERAL: Elderly male, appears in nad, with dementia, pleasantly confused SKIN: Warm and dry. CARDIOVASCULAR: Regular rate and rhythm without murmurs, gallops, or rubs. RESPIRATORY: Breath sounds equal bilaterally. No accessory muscle use. GASTROINTESTINAL: Abdomen soft, non-tender, nondistended. MUSCULOSKELETAL: No cyanosis, or edema. BACK: Nontender without obvious deformity. No CVA tenderness. Assessment and Plan This is a 77-year-old male was brought in by his family because of altered mental status. Patient is nonverbal. Reportedly patient has been losing weight and not swallowing. Every time he is given food he would spit it out. 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 Does not follow any commands. - Discussed with Family and Hospice. - Patient's family at this point want full aggressive care. - High risk for aspiration. Will keep pt on NPO status. - Will d/c D5-LR when tube feeding starts. Malnutrition - PEG tube placed on 02/27/2018. Will start Glucerna 1.5 with a goal 45cc/ hour. Traffic Court Referee to adjust the rate. Hx of PE - D/C Lovenox. re-start Apixaban. Fever -Low grade fever. -Urinalysis on 02/25/2018 was unremarkable. Chest x-ray on 02/26/2018 did not reveal any infiltrates. -Continue broad-spectrum antibiotics including Zosyn and vancomycin. ID consulted appreciate recommendations. Follow up cultures -Possibly due to aspiration although IV access is a possible source. RN to check date of patient's IV line. Mild Hypokalemia - K+ is 3.3. Will replace with KCL via PEG tube. Full code. Apixaban 5mg BID. Discussed with the patient, family at bedside his , nurse, Dr. Danielle infectious disease. Discharge plan. Pending improvement and clearance from his infectious disease. Patient may need to go back to rehab. Results - Labs CBC & Chem 7: 02/27/18 13:38 03/02/18 08:05 Laboratory Results - last 24 hr 03/02/18 03/02/18 03/02/18 08:05 11:47 18:19 Creatinine 0.77 Estimated GFR Greater than 89 POC Glucose 187 H 222 H Vancomycin Trough 03/02/18 03/03/18 21:18 01:05 Creatinine Estimated GFR POC Glucose 169 H Vancomycin Trough 8.7 Microbiology 02/27/18 13:35 Blood - Peripheral Aerobic Blood Culture - Preliminary No growth in 3 days 02/27/18 13:35 Blood - Peripheral Anaerobic Blood Culture - Preliminary No growth in 3 days 02/27/18 09:47 Blood - Peripheral Aerobic Blood Culture - Preliminary No growth in 3 days 02/27/18 09:47 Blood - Peripheral Anaerobic Blood Culture - Preliminary No growth in 3 days - Procedures PEG tube was placed on 02/27/2018.
[2018-03-03] MEDS: Potassium Chloride 25 MEQ Effervescent Tablet G-TUBE SCH (09:12)
[2018-03-03] MEDS: Metoprolol Tartrate 25 MG Tablet PO SCH ×2 (09:12→22:12)
[2018-03-03] MEDS: Collagenase Oint 30 GM Tube TOPICAL SCH (09:13)
[2018-03-03] MEDS: Insulin NovoLOG Aspart Correctional Sugar Inj SQ SCH ×4 (09:13→22:13)
[2018-03-03] MEDS ORDERED: Vancomycin Inj 1,250 MG in Sodium Chlor 0.9% Inj 250 ML IV.SIG SCH (13:00)
--- NOTE | 2018-03-03 19:18 | P.PNID ---
Subjective Remarks: dw wifw @ b/s pt has significantly improved and now is afebrile blood clx negative @ [address] A/P negative Antibiotics: zosyn vanco Past Medical History: dementia Allergies/Adverse Reactions: Allergies No Known Allergies Allergy (Verified 02/24/18 02:34) Objective Vital Signs 03/02/18 20:00 03/03/18 00:00 03/03/18 04:00 Temperature 98.4 F 98.6 F 98.3 F Pulse Rate 110 H 101 H 108 H Respiratory Rate 18 16 16 Blood Pressure 122/69 111/64 124/69 Pulse Oximetry 97 99 98 03/03/18 08:00 03/03/18 12:00 Temperature 99.5 F 98.4 F Pulse Rate 105 H 104 H Respiratory Rate 18 18 Blood Pressure 128/76 127/73 Pulse Oximetry 100 99 Intake & Output 03/02/18 03/03/18 03/03/18 18:59 06:59 18:59 Intake Total 100 / 100 1840 / 1840 1100 / 1100 Balance 100 / 100 1840 / 1840 1100 / 1100 Weight 59.3 kg Intake: IV 100 / 100 800 / 800 1100 / 1100 D5W/LR Inj 1,000 ML @ 84 mls/hr 1000 / 1000 IV.CONT .[id number] HA Rx#: [id number] Zosyn 4.5 GM Premix 4.5 gm In 100 / 100 300 / 300 100 / 100 100 ml @ 200 mls/hr IV.SIG Q6H HA Rx#:[id number] Vancomycin Inj 1,000 MG In NS 500 / 500 Inj 250 ML @ 250 mls/hr IV.SIG Q12H HA Rx#:[id number] Tube Feeding 540 / 540 Water Bolus Amount 500 / 500 Other: # Voids 3 # Incontinent Voids 4 Date of Last Bowel Movement 03/01/18 03/03/18 03/03/18 # Bowel Movements 2 # Incontinent Bowel Movements 3 02/27/18 13:35 Blood - Peripheral Aerobic Blood Culture - Preliminary No growth in 4 days 02/27/18 13:35 Blood - Peripheral Anaerobic Blood Culture - Preliminary No growth in 4 days 02/27/18 09:47 Blood - Peripheral Aerobic Blood Culture - Preliminary No growth in 4 days 02/27/18 09:47 Blood - Peripheral Anaerobic Blood Culture - Preliminary No growth in 4 days Lab - Chemistry Results 03/01/18 03/02/18 03/02/18 20:22 07:45 08:05 Creatinine 0.77 Estimated GFR Greater than 89 POC Glucose 222 H 248 H 03/02/18 03/02/18 03/02/18 11:47 18:19 21:18 Creatinine Estimated GFR POC Glucose 187 H 222 H 169 H 03/03/18 03/03/18 03/03/18 09:03 12:38 18:29 Creatinine Estimated GFR POC Glucose 306 H 157 H 270 H Imaging: ITS Impressions Gastrostomy Tube Placement 02/27/18 00:00 CONCLUSION: 1. Uncomplicated gastrostomy tube placement as above. Tube position within the stomach was verified. Chest X-Ray 02/28/18 13:52 CONCLUSION: Negative examination. Abdomen/Pelvis CT 03/01/18 00:00 CONCLUSION: 1. Benign appearing cyst in the pancreas. 2. No evidence of ileus. No evidence of free fluid. Physical Exam: GENERAL: NAD thin undernourised SKIN: Warm and dry. HEAD: Atraumatic. Normocephalic. EYES: Pupils equal and round. No scleral icterus. No injection or drainage. ENT: No nasal bleeding or discharge. Mucous membranes pink and moist. poor dentition NECK: Trachea midline. No JVD. CARDIOVASCULAR: Regular rate and rhythm. RESPIRATORY: No accessory muscle use. Clear to auscultation. Breath sounds equal bilaterally. GASTROINTESTINAL: Abdomen soft, scaphoid non-tender, nondistended. Hepatic and splenic margins not palpable. MUSCULOSKELETAL: Extremities without clubbing, cyanosis, or edema. No obvious deformities. warm and welll perfused digits NEUROLOGICAL: Awake and alert. Non verbal. not following command PSYCHIATRIC: calm with flat adfect Assessment and Plan - Plan Advanced dementia Disphagia sp PEG fever - resovled No source established diffentail includes PNA, intraabd sepsis UTI dc zosyn, vanco ok to dc pt home
[2018-03-04] MEDS: Dextrose 5%/Lactated Ringer's 1,000 ML IV.CONT SCH ×2 (04:52→16:03)
[2018-03-04] MEDS: Insulin NovoLOG Aspart Correctional Sugar Inj SQ SCH ×4 (08:00→23:30)
[2018-03-04] MEDS: Metoprolol Tartrate 25 MG Tablet PO SCH ×2 (10:08→23:14)
[2018-03-04] MEDS: Collagenase Oint 30 GM Tube TOPICAL SCH (10:09)
--- NOTE | 2018-03-04 12:13 | P.PN ---
Physical Exam Vital signs: Vital Signs 03/03/18 16:00 03/03/18 20:00 03/04/18 00:00 Temperature 98.1 F 100.4 F H 98.9 F Pulse Rate 114 H 106 H 98 H Respiratory Rate 18 20 21 Blood Pressure 104/60 98/63 L 118/80 Pulse Oximetry 98 97 95 03/04/18 04:00 03/04/18 08:00 Temperature 97 F L 97.9 F Pulse Rate 89 105 H Respiratory Rate 19 20 Blood Pressure 120/88 114/57 L Pulse Oximetry 97 95 Intake & Output 03/03/18 03/04/18 03/04/18 18:59 06:59 18:59 Intake Total 1100 / 1100 180 / 180 Output Total Balance 1100 / 1100 180 / 180 Weight 59.9 kg Intake: IV 1100 / 1100 1362.5 / 1362.5 D5W/LR Inj 1,000 ML @ 84 mls/hr 1000 / 1000 1000 / 1000 IV.CONT .[id number] HA Rx#: [id number] Zosyn 4.5 GM Premix 4.5 gm In 100 / 100 100 / 100 100 ml @ 200 mls/hr IV.SIG Q6H HA Rx#:[id number] Vancomycin Inj 1,250 MG In NS 262.5 / 262.5 Inj 250 ML @ 250 mls/hr IV.SIG Q12H HA Rx#:[id number] Oral 100 / 100 Tube Feeding 540 / 540 1688 / 1688 Tube Irrigant 120 / 120 Output: Stool Other: # Voids 8 # Incontinent Voids 3 Date of Last Bowel Movement 03/03/18 03/03/18 03/04/18 # Bowel Movements 4 # Incontinent Bowel Movements 1 Narrative: Subjective Interval history: Follow up for dementia, Dysphagia, hx of PE and possible aspiration pneumonia. Flat affect, more awake and alert, he is more interactive, however not talking. Patient appears improved today. Doesn't appear in acute distress. He is not coughing. ID stopped antibiotics, cleared by ID, can be DC Family will like to take him home. PT recomemnds rehab No n/v/d/c. Physical Exam GENERAL: Elderly male, appears in nad, with dementia, pleasantly confused SKIN: Warm and dry. CARDIOVASCULAR: Regular rate and rhythm without murmurs, gallops, or rubs. RESPIRATORY: Breath sounds equal bilaterally. No accessory muscle use. GASTROINTESTINAL: Abdomen soft, non-tender, nondistended. MUSCULOSKELETAL: No cyanosis, or edema. BACK: Nontender without obvious deformity. No CVA tenderness. Assessment and Plan This is a 77-year-old male was brought in by his family because of altered mental status. Patient is nonverbal. Reportedly patient has been losing weight and not swallowing. Every time he is given food he would spit it out. 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 Does not follow any commands. - Discussed with Family and Hospice. - Patient's family at this point want full aggressive care. - High risk for aspiration. Will keep pt on NPO status. - Will d/c D5-LR when tube feeding starts. Acute encephalopathy toxic with persistent high grade fevers on admission, resolving, patient at his baseline SIRS/SEPSIS criteria on admission. persistent irma grade fevers, tachycardia on admission , poss aspiration PNA and UTI. The patient was started on IV abx zosyn and vanco Blood cx negative ID consulted, abx DCd No source of infection however was presumed aspiration pna and UTI on admission. 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 - PEG tube placed on 02/27/2018. On Glucerna 1.5 with a goal 45cc/hour. Validation Technician to adjust the rate. Hx of PE - D/C Lovenox. re-start Apixaban. Fever -Low grade fever. -Urinalysis on 02/25/2018 was unremarkable. Chest x-ray on 02/26/2018 did not reveal any infiltrates. -Continue broad-spectrum antibiotics including Zosyn and vancomycin. ID consulted appreciate recommendations. Follow up cultures -Possibly due to aspiration although IV access is a possible source. RN to check date of patient's IV line. Mild Hypokalemia - K+ is 3.3. Will replace with KCL via PEG tube. Full code. Apixaban 5mg BID. Discussed with the patient, family at bedside his , nurse, Dr. Danielle infectious disease. Discharge plan. Pending improvement and clearance from his infectious disease. Patient may need to go to rehab. Results - Labs CBC & Chem 7: 02/27/18 13:38 03/02/18 08:05 Laboratory Results - last 24 hr 03/03/18 03/03/18 03/03/18 12:38 18:29 20:38 POC Glucose 157 H 270 H 238 H 03/04/18 03/04/18 05:00 10:24 POC Glucose 253 H 227 H Microbiology 02/27/18 13:35 Blood - Peripheral Aerobic Blood Culture - Final No growth in 5 days 02/27/18 13:35 Blood - Peripheral Anaerobic Blood Culture - Final No growth in 5 days 02/27/18 09:47 Blood - Peripheral Aerobic Blood Culture - Final No growth in 5 days 02/27/18 09:47 Blood - Peripheral Anaerobic Blood Culture - Final No growth in 5 days - Procedures PEG tube was placed on 02/27/2018.
--- NOTE | 2018-03-04 12:14 | P.DS ---
Date of admission: 02/28/18 11:34 Primary care physician: Manjit Jiménez MD Brief History from admission: This is a 77-year-old male was brought in by his family because of altered mental status. Patient is nonverbal so history is mainly taken from chart review. Reportedly patient has been losing weight and not swallowing. Every time he is given food he would spit it out. He has history of dementia and has been bedbound with bedsores involving the sacrum and left foot, PE diagnosed in October on Eliquis, TIA/CVA, TBI with subdural hematoma, seizure disorder, hypertension, coronary artery disease, diabetes mellitus, anemia, acute kidney injury, diabetes mellitus, hyperlipidemia and GERD. He was scheduled to meet hospice outpatient and family has requested hospice consult in the hospital. In the emergency department, he was found to be dehydrated with hypotension and tachycardia and has been started on IV hydration. He also was leukocytosis with negative chest x-ray. Urinalysis has been ordered. At this time he is easily awakened follows commands intermittently but does not answer questions. Family is not at bedside. All other systems reviewed negative DS: Summary Hospital Course: GENERAL: Elderly male, appears in nad, with dementia, pleasantly confused SKIN: Warm and dry. CARDIOVASCULAR: Regular rate and rhythm without murmurs, gallops, or rubs. RESPIRATORY: Breath sounds equal bilaterally. No accessory muscle use. GASTROINTESTINAL: Abdomen soft, non-tender, nondistended. MUSCULOSKELETAL: No cyanosis, or edema. BACK: Nontender without obvious deformity. No CVA tenderness. Assessment and Plan This is a 77-year-old male was brought in by his family because of altered mental status. Patient is nonverbal. Reportedly patient has been losing weight and not swallowing. Every time he is given food he would spit it out. 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 Does not follow any commands. - Discussed with Family and Hospice. - Patient's family at this point want full aggressive care. - High risk for aspiration. Will keep pt on NPO status. - Will d/c D5-LR when tube feeding starts. Acute encephalopathy toxic with persistent high grade fevers on admission, resolving, patient at his baseline SIRS/SEPSIS criteria on admission. persistent irma grade fevers, tachycardia on admission , poss aspiration PNA and UTI. The patient was started on IV abx zosyn and vanco Blood cx negative ID consulted, abx DCd No source of infection however was presumed aspiration pna and UTI on admission. 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 - PEG tube placed on 02/27/2018. On Glucerna 1.5 with a goal 45cc/hour. Child Care Specialist to adjust the rate. Hx of PE - D/C Lovenox. re-start Apixaban. Fever -Low grade fever. -Urinalysis on 02/25/2018 was unremarkable. Chest x-ray on 02/26/2018 did not reveal any infiltrates. -Continue broad-spectrum antibiotics including Zosyn and vancomycin. ID consulted appreciate recommendations. Follow up cultures -Possibly due to aspiration although IV access is a possible source. RN to check date of patient's IV line. Mild Hypokalemia - K+ is 3.3. Will replace with KCL via PEG tube. Full code. Apixaban 5mg BID. Discussed with the patient, family at bedside his , nurse, Dr. Danielle infectious disease. Discharge plan. Pending improvement and clearance from his infectious disease. DC to rehab - Time Spent with Patient Total time spent providing and/or coordinating discharge services: Greater than 30 minutes - Quality: VTE Deep Vein Thrombosis/Pulmonary Embolism Present on Admission: Yes Exam Vital signs: Vital Signs 03/03/18 16:00 03/03/18 20:00 03/04/18 00:00 Temperature 98.1 F 100.4 F H 98.9 F Pulse Rate 114 H 106 H 98 H Respiratory Rate 18 20 21 Blood Pressure 104/60 98/63 L 118/80 Pulse Oximetry 98 97 95 03/04/18 04:00 03/04/18 08:00 Temperature 97 F L 97.9 F Pulse Rate 89 105 H Respiratory Rate 19 20 Blood Pressure 120/88 114/57 L Pulse Oximetry 97 95 Intake & Output 03/03/18 03/04/18 03/04/18 18:59 06:59 18:59 Intake Total 1100 / 1100 2001.2001. 1808 / 1808 Output Total Balance 1100 / 1100 1807 / 1807 Weight 59.9 kg Intake: IV 1100 / 1100 1362.5 / 1362.5 D5W/LR Inj 1,000 ML @ 84 mls/hr 1000 / 1000 1000 / 1000 IV.CONT .[id number] HA Rx#: [id number] Zosyn 4.5 GM Premix 4.5 gm In 100 / 100 100 / 100 100 ml @ 200 mls/hr IV.SIG Q6H HA Rx#:[id number] Vancomycin Inj 1,250 MG In NS 262.5 / 262.5 Inj 250 ML @ 250 mls/hr IV.SIG Q12H HA Rx#:[id number] Oral 100 / 100 Tube Feeding 540 / 540 1688 / 1688 Tube Irrigant 120 / 120 Output: Stool Other: # Voids 8 # Incontinent Voids 3 Date of Last Bowel Movement 03/03/18 03/03/18 03/04/18 # Bowel Movements 4 # Incontinent Bowel Movements 1 Results Procedures completed during hospitalization: PEG tube was placed on 02/27/2018. Labs on day of discharge: Labs from last 24 hours 03/04/18 03/04/18 03/03/18 10:24 05:00 20:38 POC Glucose 227 H 253 H 238 H 03/03/18 03/03/18 18:29 12:38 POC Glucose 270 H 157 H - Impressions ITS Impressions Gastrostomy Tube Placement 02/27/18 00:00 CONCLUSION: 1. Uncomplicated gastrostomy tube placement as above. Tube position within the stomach was verified. Chest X-Ray 02/28/18 13:52 CONCLUSION: Negative examination. Abdomen/Pelvis CT 03/01/18 00:00 CONCLUSION: 1. Benign appearing cyst in the pancreas. 2. No evidence of ileus. No evidence of free fluid. Discharge Plan - Discharge Disposition Patient Disposition: /Home Health Service - Discharge Condition Condition: Stable - Discharge Order Discharge Orders: Discharge Order (Routine); Ordered 03/05/18 Ordered By: Juana Gutierrez - Discharge Details Anticipated Discharge Date: 03/04/18 - Physicians Team Primary Care Provider: Manjit Jiménez Attending Provider: Juana Gutierrez Other Providers: Kimberli Ag ; Cassidy Danielle MD ; Geoffrey Guerra MD ; [facility],Agency ; [facility],Agency ; [facility], Agency
--- NOTE | 2018-03-04 13:00 | P.DIET ---
Nutritional Evaluation Type of nutrition evaluation: follow-up Nutrition consult regarding: Tube Feeding Nutrition screening: Weight Loss > 10 lbs, [facility] Screening comments: reported refusal to eat w/wt loss Subjective Subjective Comments: Non-verbal Objective - Diagnosis AMS - Objective [place] body weight: 73 kg Body Weight Used for Calculations: Actual Energy Needs - Lower Range (kCal/kg): 35 Energy Needs - Upper Range (kCal/kg): 40 Lower Limit kCal/kg (kCals): 1,869 Upper Limit kCal/kg (kCals): 2,136 Lower Limit Protein Factor (Grams per Kg): 1.4 Upper Limit Protein Factor (Grams per Kg): 1.8 Lower Protein Needs (Protein): 75 Upper Protein Needs (Protein): 96 Fluid Factor (ml/kg): 35 Estimated Fluid Needs (ml): 1,869 Dietitian Reviewed in Medical Record: Curent medications, Intake & Output, Labs , Medical history, Tube feeding, Wound/DTI Speech Therapy Recommendations: Yes (Strict NPO) Wound Care Note: 02/24 WOCN note: Unstageable pressure injury to sacrum; Left Ankle Stage II and Left Heel Unstageable wound Objective Comments: PMH: Dementia, DM, TIA, CVA, TBI, HTN, CAD, Hyperlipidemia, GERD s/p PEG tube placement 02/27 Labs include: Accucheck 227 Free Water Flush 250ml Q 6-hr +4BM Feeding - Current Tube Feeding Tube Feeding Product: Glucerna 1.5 Tube Feeding Rate: 45 Tube Feeding Route: gastrostomy Current kCals Provided by Tube Feedin,620 Current Protein Provided by Tube Feeding (gPRO): 89 Current Free H2O Provided (m/l): 820 Assessment Assessment: Pt at nutritional risk r/t recent wt loss and need for Strict NPO requiring TF' ing for nutrition support. Current TF'ing rate does not meet pt's assessed needs. Rec TF'ing w/ Glucerna 1.5 @ goal rate 55 ml/hr continuous, to offer 1980 kcal, 108.9g protein and 1002ml free water. For bolus feedings, Rec 360mls at 8am, 12pm, 4pm and 240mls at 8pm. Rec free water flush 60ml before and 60ml after each bolus feeding. Additional free water flush as ordered per MD. Wt changes noted w/an 8kg wt loss. Dietitian following. Recommendations: 1.Current TF'ing rate does not meet pt's assessed needs 2.Rec TF'ing w/ Glucerna 1.5 @ goal rate 55 ml/hr 3. For bolus feedings, Rec 360mls at 8am, 12pm, 4pm and 240mls at 8pm 4.Rec free water flush 60ml before and 60ml after each bolus feeding 5.Additional free water flush as ordered per MD 6.Dietitian following Dietitian to Monitor: Intake & Output, Tube feeding tolerance, Weight change, Wound/skin status, Medical course
--- NOTE | 2018-03-04 15:11 | P.DCO ---
- Physical Therapy Order: Evaluate and treat - Home Health Nursing Order: Medical education, Signs/symptoms of disease process, Medication education-adverse effect (tube feedings management, patientis on Glucerna 1.5 continuous at goal of 45cc /hr), Nursing assessment with vital signs - Certification I have seen patient Rene Kurtz on 03/04/18. My clinical findings support the need for the requested home health care services because: Limited mobility due to disease progression, Deconditioned with increased weakness, Limited ability to care for self, Impaired cognition/judgement I certify that my clinical findings support that this patient is homebound because: Post-op weakness
--- NOTE | 2018-03-04 17:44 | P.CONPAL ---
Consult Service: Palliative Care . Requesting Physician: Juana Gutierrez Reason for Consult: a. To assist with evaluation and management of symptoms including: pain; confusion; dysphagia b. To assist medical decision maker(s) with: better understanding of current medical conditions; weighing benefits/burdens of medical treatment options; making medical treatment decisions. . Primary Care Provider: Manjit Jiménze MD . History of Present Illness History of Present Illness: Mr. Kurtz is a 77 y/o male retired [employer] employee (36 years in the [employer] department here) with a known medical history which includes advanced dementia; stroke/TIA; CAD; diabetes; recent PE (October 2017); traumatic brain injury; and pressure sores who was brought by family to the [place] ED on 02/24/18 because of difficulty swallowing and spitting food back up. Family reported he had been requiring thickened liquids and had been losing weight. He had been fighting bedsores. Due to his dementia, patient is unable to provide history -- history is taken from medical record and from available family. In the emergency department initial vital signs were as follows: Temperature 97.9; pulse rate 125; respiratory rate 16; blood pressure 81/59; pulse oximetry 98% The initial physical examination by the emergency jewelry department supervisor noted the following: Patient appeared frail and was nonverbal. Patient was awake and alert. No other abnormalities were noted. Initial diagnostic testing revealed the following: * CBC showed WBC 11.2; hemoglobin 13.3; platelet count 518 * Chemistry panel showed sodium 141; potassium 4.0; chloride 108; CO2 23.9; anion gap 9; BUN 11; creatinine 0.78; GFR greater than 89; glucose 135; calcium 7.6 * Liver function testing showed total bilirubin 0.4; AST 31; ALT 16; alkaline phosphatase 57; total protein 6.3; albumin 2.0 * TSH was 1.8 * Chest x-ray showed no acute cardiopulmonary disease * Urinalysis showed small occult blood but was otherwise unremarkable IV hydration was begun in the emergency department --dehydration was suspected given the hypotension and the tachycardia. The patient was admitted to the hospitalist service. Decubiti were noted in the sacrum and left foot. Wound care was consulted. Speech therapy was consulted. Speech therapy initially recommended nectar thickened liquids. Eventually however the patient was not swallowing his food and speech therapy recommended that the patient be kept n.p.o. Tube feedings were begun. Hospice was consulted. Family met several times with hospice. Goals remained quite aggressive. Although patient was felt to be medically eligible with life expectancy being 6 months or less, the aggressive goals of care made hospice and appropriate. PEG tube was discussed and family opted to go forward. The tube was placed on 02/27/18 by interventional radiology. Patient developed fever up to 102.9. Infectious disease was consulted. Patient was started on vancomycin and Zosyn. Blood cultures were negative. CT of the abdomen/pelvis on 03/01/18 was unremarkable except for a benign- appearing cyst in the pancreas. The source of the fever was not determined. With PEG tube in place and patient recovering from his infection of uncertain etiology, discharge planning has been discussed. Family has told the medical team they would prefer to care for the patient at home rather than send him to a long-term facility. At time of my visit, patient opens his eyes to stimulation. He is nonverbal. He is unable to follow commands. He does not smile. He is in no distress. is at bedside. She tells me her plans for caring for the patient at home. She will be the primary caregiver. Her children who live locally will relieve her periodically. She seems to understand the caregiving needs. She explained she wants to give it a try and understands that if it fails she can ask for additional help. We discussed the hospice option once again. She seems to fully understand this option. We discuss what she feels the patient would want under the circumstances. At this point, she feels he would continue to want to be FULL CODE and have aggressive goals. . Function/Cognitive Trajectory: This is the patient's 5th acute care hospitalization here since April 2017. In early September 2017, the patient was reportedly able to ambulate without assistive device and to feed himself. He required assistance with bathing and was occasionally able to verbalize needs. He recognized family members. In early September there was a questionable seizure and TIA with hospitalization. He was discharged to [facility] on 10/14 but readmitted on 11/01 - 11/04. He was discharged home but readmitted the next day. During his hospitalization in October he was diagnosed with a pulmonary embolus. . There is no family history of dementia that is aware of. Father of complications of DM. was unaware of what the patient's mother from. . Review of Systems Patient is non-verbal and demented and is unable to provide ROS. ROS obtained from medical record and . 13 part ROS reviewed as best as possible and negative except for that presented in the HPI and the following: * Weight loss * Dysphagia * Generalized weakness * Intermittent cough * Bowel/bladder incontinence * Bruising * Seizures . unobtainable due to mental condition PMFSH - History History Provided By: Family Member, Medical Record - Medical History Medical History: Medical History (Last Updated 03/04/18 @ 18:49 by Geoffrey Guerra MD) Pain (Acute) Generalized weakness (Acute) Hypoalbuminemia (Acute) Dysphagia (Acute) Diabetes (Acute) Dementia (Acute) - Surgical History Surgical History: Surgical History (Last Updated 03/04/18 @ 18:51 by Geoffrey Guerra MD) History of craniotomy (Acute) History of cardiac cath (Acute) - Family History Family History: Family History (Last Updated 03/04/18 @ 19:07 by Geoffrey Guerra MD) Father Diabetes mellitus Other Dementia HLD (hyperlipidemia) - Tobacco History Second Hand Smoke Exposure: No Tobacco Use In Past 30 Days: No Smoking Status: Former smoker Tobacco Type: Cigarettes Smoking End Date: 1977 - Alcohol History How Often Do You Have a Drink Containing Alcohol: Never - Substance Use History Substance History: No History of Abuse - Travel History History of Recent Travel: No Recent Travel in the [place] Within the Last 8 Weeks: No Recent Travel Out of the Country Within the Last 8 Weeks: No - Immunization History Tetanus Immunization: Unsure Hx Influenza Vaccine This Season: Yes Medications and Allergies Active Medications: Active Medications Acetaminophen (Tylenol Supp) 650 mg RECTAL Q4H PRN PRN Reason: FEVER > 100.4 F Last Admin: 03/01/18 16:43 Dose: 650 mg Apixaban (Eliquis) 5 mg PO BID HA Last Admin: 03/04/18 10:08 Dose: 5 mg Bisacodyl (Dulcolax Supp) 10 mg RECTAL DAILY PRN PRN Reason: SEVERE CONSITIPATION Collagenase (Santyl Oint) 1 applicatio TOPICAL DAILY HA Last Admin: 03/04/18 10:09 Dose: 1 applicatio Dextrose (D50w Vial) 50 ml IV.PUSH UNSCH PRN PRN Reason: PER HYPOGLYCEMIA PROTOCOL Donepezil HCl (Aricept) 2.5 mg PO DAILY [facility] Last Admin: 03/04/18 10:08 Dose: 2.5 mg Glucagon (Glucagon Inj) 1 mg OTHER PRN PRN PRN Reason: for Hypoglycemia Protocol Last Admin: 02/27/18 17:05 Dose: 1 mg Dextrose/Lactated Ringer's (D5w/Lr Inj) 1,000 mls @ 84 mls/hr IV.CONT .[id number] [facility] Last Admin: 03/04/18 16:03 Dose: 84 mls/hr Pharmacy Profile Note (Vancomycin Consult Pharmacy) 0 mls @ 0 mls/hr OTHER UNSCH [facility] Insulin Aspart (Novolog Insulin Correctional Sugar Inj) 0 unit SQ ACHS [facility]; Protocol Last Admin: 03/04/18 13:00 Dose: 5 unit Memantine (Namenda) 10 mg PO BID [facility] Last Admin: 03/04/18 10:08 Dose: 10 mg Metoprolol Tartrate (Lopressor) 12.5 mg PO BID [facility] Last Admin: 03/04/18 10:08 Dose: 12.5 mg Miscellaneous (Pill Splitter) 1 each OTHER UNSCH PRN PRN Reason: PILL SPLITTING Ondansetron HCl (Zofran Odt) 4 mg PO Q6H PRN PRN Reason: NAUSEA OR VOMITING Pantoprazole Sodium (Protonix) 40 mg PO DAILY [facility] Last Admin: 03/04/18 10:08 Dose: 40 mg Pravastatin Sodium (Pravachol) 80 mg PO HS [facility] Last Admin: 03/03/18 22:12 Dose: 80 mg Allergies Allergy/AdvReac Type Severity Reaction Status Date / Time No Known Allergies Allergy Verified 02/24/18 02:34 Home Medications Medication Instructions Recorded Confirmed Type Levemir U-100 Insulin 10 unit SUB-Q DAILY 02/24/18 02/24/18 History apixaban [Eliquis] 5 mg PO BID 02/24/18 02/24/18 History donepezil 2.5 mg PO DAILY 02/24/18 02/24/18 History insulin aspart U-100 [Novolog 1 sliding scale dose SUB-Q UD 02/24/18 02/24/18 History U-100 Insulin aspart] memantine 10 mg PO BID 02/24/18 02/24/18 History metoprolol tartrate 12.5 mg PO BID 02/24/18 02/24/18 History omeprazole 40 mg PO DAILY 02/24/18 02/24/18 History simvastatin 40 mg PO QPM 02/24/18 02/24/18 History zinc 50 mg PO DAILY 02/24/18 02/24/18 History Advance Directives Advance Directives Date on File: 10/16/14 (Health care surrogate designation only) Living Will: No Healthcare Surrogate: Yes Health Care Surrogate Name and Number: Yajaira Kurtz [phone] Power of Casing Cleaner: No Power of Casing Cleaner Name: Yajaira Kurtz Power of Casing Cleaner Relationship to Patient: Spouse Documented care wishes: No written documentation of patient's goals/preferences . Today's verbally stated goals: Patient is unable to verbally state goals due to his dementia. . Family/friends goals: The healthcare surrogate is somewhat ambivalent but is currently advocating for aggressive goals including full resuscitation. . Ethical and Legal Issues: No known legal/ethical issues obvious at this time. . Physical Exam Vital Signs: Vital Signs - 24 hr 03/03/18 20:00 03/04/18 00:00 03/04/18 04:00 Temperature 100.4 F H 98.9 F 97 F L Pulse Rate 106 H 98 H 89 Respiratory Rate 20 21 19 Blood Pressure 98/63 L 118/80 120/88 Pulse Oximetry 97 95 97 03/04/18 08:00 03/04/18 12:00 03/04/18 16:00 Temperature 97.9 F 98.8 F 98.7 F Pulse Rate 105 H 85 103 H Respiratory Rate 20 20 20 Blood Pressure 114/57 L 126/58 L 123/58 L Pulse Oximetry 95 95 95 . I&O: Intake & Output 03/02/18 03/03/18 03/04/18 03/05/18 06:59 06:59 06:59 06:59 Intake Total 3304 / 3304 1939 3102.5 / 3102.5 2808 / 2808 Output Total / 5 Balance 3304 / 3304 1939 3102.5 / 3102.5 2803 / 2803 Weight 59.3 kg 59.9 kg Physical Exam: CONSTITUTIONAL/GENERAL: This is a thin, frail appearing male in a med-surg bed. He is non-verbal, not smiling, unable to follow commands. No obvious distress TUBES/LINES/DRAINS: Peripheral IV; PODUS boots; PEG tube SKIN: No jaundice, rashes, or lesions. No wounds seen anteriorly -- sacral wound and foot wound not personally examined by me today. Skin temperature appropriate. Not diaphoretic. HEAD: Atraumatic. Normocephalic. EYES: Pupils equal and round and reactive. Extraocular motions intact. No scleral icterus. No injection or drainage. Fundi not examined. ENT: Unable to assess hearing other than he looks toward me when I speak loudly. . Nose without bleeding or purulent drainage. Throat without visible erythema, exudates, masses, or lesions. NECK: Trachea midline. Supple, nontender. No palpable thyroid enlargement or nodularity. CARDIOVASCULAR: Regular rate and rhythm without murmurs, gallops, or rubs. No JVD. Peripheral pulses symmetric. RESPIRATORY/CHEST: Symmetric, unlabored respirations. Clear to auscultation. Breath sounds equal bilaterally. No wheezes, rales, or rhonchi. GASTROINTESTINAL: Abdomen soft, scaphoid; non-tender, nondistended. No hepato- splenomegaly, or palpable masses. No guarding. Bowel sounds present. GENITOURINARY: Without palpable bladder distension. MUSCULOSKELETAL: Extremities without clubbing, cyanosis, or edema. No joint tenderness or effusion noted. No calf tenderness. No mottling or clubbing. LYMPHATICS: No palpable cervical or supraclavicular adenopathy. NEUROLOGICAL: Awake and alert. Unable to follows commands. Does not smile. No attempt to respond. Rare spontaneous movement. PSYCHIATRIC: Unable to assess due to level of overall responsiveness. . Diagnostic Tests Laboratory: Laboratory Results - last 72 hr 03/01/18 03/01/18 03/02/18 18:15 20:22 07:45 Creatinine Estimated GFR POC Glucose 202 H 222 H 248 H Vancomycin Trough 03/02/18 03/02/18 03/02/18 08:05 11:47 18:19 Creatinine 0.77 Estimated GFR Greater than 89 POC Glucose 187 H 222 H Vancomycin Trough 03/02/18 03/03/18 03/03/18 21:18 01:05 09:03 Creatinine Estimated GFR POC Glucose 169 H 306 H Vancomycin Trough 8.7 03/03/18 03/03/18 03/03/18 12:38 18:29 20:38 Creatinine Estimated GFR POC Glucose 157 H 270 H 238 H Vancomycin Trough 03/04/18 03/04/18 03/04/18 05:00 10:24 13:53 Creatinine Estimated GFR POC Glucose 253 H 227 H 253 H Vancomycin Trough Result Diagrams: 02/27/18 13:38 03/02/18 08:05 Microbiology: Microbiology 02/27/18 13:35 Aerobic Blood Culture - Final Blood - Peripheral No growth in 5 days Anaerobic Blood Culture - Final No growth in 5 days 02/27/18 09:47 Aerobic Blood Culture - Final Blood - Peripheral No growth in 5 days Anaerobic Blood Culture - Final No growth in 5 days Imaging: Chest X-Ray 02/24/18 03:09 CONCLUSION: No acute cardiopulmonary disease. Chest X-Ray 02/26/18 00:00 CONCLUSION: Elevated left hemidiaphragm. Gastrostomy Tube Placement 02/27/18 00:00 CONCLUSION: 1. Uncomplicated gastrostomy tube placement as above. Tube position within the stomach was verified. Chest X-Ray 02/28/18 13:52 CONCLUSION: Negative examination. Abdomen/Pelvis CT 03/01/18 00:00 CONCLUSION: 1. Benign appearing cyst in the pancreas. 2. No evidence of ileus. No evidence of free fluid. . Procedures: PEG tube placement 02/27/18 . Patient/Family Conference Present at Family Conference: Spouse (the health care surrogate); patient . Family Conference Time: 25 Family Conference Location: Bedside Issues Discussed: * Palliative care role, purpose, approach * Additional medical, psychosocial, and spiritual history * Patients general health, functional status, and cognitive changes in the months leading up to the current hospitalization * Family understanding of the current medical problems * Family understanding of prognosis * Patients goals of care as best understood conversations and/or values * Current medical treatment options and benefits/burdens of those options * Likely scenarios comparing ongoing aggressive care with a transition to comfort measures only * Questions answered to the best of my ability . Assessment and Plan - Disease Oriented Problem List (1) Sepsis Comment: Blood cultures showed no growth but patient had temp > 102. (2) Malnutrition (3) Hypoalbuminemia (4) Dysphagia Comment: PEG tube placed 02/27/18 (5) Pulmonary embolus Comment: Diagonsed in 10/2017 and has been on anti-coagulants. - Symptom Scale (1) Pain 0-10 Scale: Unable to quantify (2) Generalized weakness 0-10 Scale: Unable to quantify Pertinent Non-Medical Issues: Psychosocial: Patient was born and raised in [place]. 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 to spouse, Yajaira, for about 53 years. 3 sons and 1 daughter. Son -- Rene Morales works in the [place] laborer cook house. No Spiritual: Baptism Legal: Health care surrogate designation in medical record. No living will Ethical issues impacting care: No known ethical issues at this time. . Important Contacts: Yajaira Kurtz (spouse and health care surrogate) [phone] Rene Morales (son) Coy (son) Randolph (son) Eve (daughter) . Prognosis: Patient has advanced dementia meeting FAST 7c -- he is bedbound, non-verbal, incontinent of bowel/bladder, has been fighting bedsores, and has dysphagia requiring a feeding tube. He has significant co-morbidities including CAD, DM, TIA/stroke, and suffered a PE in October 2017. He has lost weight. He has been in and out of the hospital. Life expectancy even with tube feedings is likely less than 6 months based on the above. He is medically eligible for hospice and could be enrolled at such time that goals become more comfort oriented. . Code Status: Full Code Plan: == Code Status: FULL CODE == Decision making: Patient is incapacitated to make his own healthcare decisions and there is no reasonable probability that he will regain capacity. His spouse, Yajaira, is his designated healthcare surrogate and is making healthcare decisions for him. == Goals of medical treatment: Though the healthcare surrogate is somewhat ambivalent, at this time she feels the patient would want her to continue utilizing all aggressive care to prolong life including resuscitation efforts. She appears to understand other options and knows that at such time she feels the patient would prefer the emphasis to be on comfort, she can transition to hospice care. == Symptoms * Pain: Possible sources of pain might include pressures sores; prolonged bedbound status; re-positioning. Patient is unable to effectively communicate pain location, severity, or quality. Nursing pain levels have been at 0. * SOB: Resolved. High risk for aspirations. * Confusion: This is secondary to the dementia. He is at high risk for acute delirium on top of his dementia whenever hospitalized and or ill. == PLAN * Spoke at length with health care surrogate regarding options for care going forward. She tells me the family is determined to try and care for him at home at this time. She will be at home most of the time and children will be taking turns giving her breaks and helping her out. She understands that if that doesn 't work she can ask for other types of help. She is declining SNF type care at this time. She declines hospice care at this time. We spoke about the burden of bringing him back and forth to the hospital. We spoke about the medications /technology/ and professionals available in the hospital and how they are wonderful if they can help to restore health or improve quality of life but how they can be hard on someone with dementia who has to endure the poking and the prodding with no reasonable hope that the treatments will provide any overall improvement. * May want to consider discontinuing donepezil and memantine which are unlikely to be of any help at this level of dementia * Recommend scheduling acetaminophen 650 mg via tube q 8 hours ATC. From his wounds and bedbound status he is likely to be having at least mild to moderate pain which he is unable to verbally tell us about. * Given patient's current disease status and recent history, we can anticipate more episodes of acute illness (primarily infections e.g. pneumonia; skin infection; UTI; etc) in near future. At each of these status changes, hospice services should be offered again. * Should patient remain hospitalized, palliative care will continue to follow to assist with symptom management and to further clarify goals of medical treatment as the clinical course evolves. . . Appreciation Thank you for the opportunity to participate in the care of Rene Kurtz. . Attestation Attestation: To help prompt me to consider important information that might be impacting today's encounter and assessment, information from prior notes written by myself or my colleagues may have been "brought forward" into today's note. My signature on this note, however, is an attestation that I personally performed the exam, history, and/or decision-making noted today, and, unless otherwise indicated, the interactions with patient, family, and staff as well as the review of records all occurred today. I also attest that the listed assessment and stated plan reflect my best clinical judgment today based on the combination of historical information, prior notes, and today's exam/ interactions. When time spent is documented, it refers only to time spent today by the signer, or if indicated, combined time spent today by collaborating physician/nurse practitioner.
[2018-03-05] MEDS ORDERED: Pharmacy Ordered Lab Info OTHER ONE (00:45)
[2018-03-05] MEDS: Dextrose 5%/Lactated Ringer's 1,000 ML IV.CONT SCH ×2 (06:22→15:54)
[2018-03-05 07:29] LABS: Glomerular Filtration Rate Greater Than 89 mL/min (>89)
[2018-03-05] MEDS: Insulin NovoLOG Aspart Correctional Sugar Inj SQ SCH ×4 (08:51→21:30)
[2018-03-05] MEDS: Collagenase Oint 30 GM Tube TOPICAL SCH (08:52)
[2018-03-05] MEDS: Metoprolol Tartrate 25 MG Tablet PO SCH ×2 (08:52→21:57)
--- NOTE | 2018-03-05 18:11 | P.PN ---
Physical Exam Vital signs: Vital Signs 03/04/18 22:45 03/05/18 01:00 03/05/18 04:00 Temperature 98 F 98.8 F 99 F Pulse Rate 78 68 66 Respiratory Rate 19 20 19 Blood Pressure 118/82 120/88 125/68 Pulse Oximetry 94 L 95 95 03/05/18 08:00 03/05/18 12:00 Temperature 98.2 F 98.7 F Pulse Rate 107 H 103 H Respiratory Rate 18 Blood Pressure 106/57 L 117/57 L Pulse Oximetry 18 L Intake & Output 03/04/18 03/05/18 03/05/18 18:59 06:59 18:59 Intake Total 2808 / 2808 1640 / 1640 1000 / 1000 Output Total 5 / 5 Balance 2803 / 2803 1640 / 1640 1000 / 1000 Weight 59 kg Intake: IV 1000 / 1000 1000 / 1000 1000 / 1000 D5W/LR Inj 1,000 ML @ 84 mls/hr 1000 / 1000 1000 / 1000 1000 / 1000 IV.CONT .[id number] [facility] Rx#: [id number] Oral 0 / 0 Tube Feeding 1688 / 1688 540 / 540 Tube Irrigant 120 / 120 100 / 100 Output: Urine 3 / 3 Stool 2 / 2 Other: # Voids 8 # Incontinent Voids 4 Date of Last Bowel Movement 03/04/18 03/04/18 03/05/18 # Bowel Movements 6 # Incontinent Bowel Movements 1 Narrative: Subjective Interval history: Follow up for dementia, Dysphagia, hx of PE and possible aspiration pneumonia. Flat affect, not interactive. Doesn't appear in acute distress. He is not coughing. ID stopped antibiotics, cleared by ID, can be DC Family will like to take him home initially however they decided much for the take care at home and wants to explore rehab/long-term No n/v/d/c. Tolerates tube feedings well Physical Exam GENERAL: Elderly male, appears in nad, with dementia, pleasantly confused SKIN: Warm and dry. CARDIOVASCULAR: Regular rate and rhythm without murmurs, gallops, or rubs. RESPIRATORY: Breath sounds equal bilaterally. No accessory muscle use. GASTROINTESTINAL: Abdomen soft, non-tender, nondistended. MUSCULOSKELETAL: No cyanosis, or edema. BACK: Nontender without obvious deformity. No CVA tenderness. Assessment and Plan This is a 77-year-old male was brought in by his family because of altered mental status. Patient is nonverbal. Reportedly patient has been losing weight and not swallowing. Every time he is given food he would spit it out. 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 Does not follow any commands. - Discussed with Family and Hospice. - Patient's family at this point want full aggressive care. - High risk for aspiration. Will keep pt on NPO status. - Will d/c D5-LR when tube feeding starts. Acute encephalopathy toxic with persistent high grade fevers on admission, resolving, patient at his baseline SIRS/SEPSIS criteria on admission. persistent irma grade fevers, tachycardia on admission , poss aspiration PNA and UTI. The patient was started on IV abx zosyn and vanco Blood cx negative ID consulted, abx DCd No source of infection however was presumed aspiration pna and UTI on admission. U cx neg and CXR no infiltrates Discussed with Dr Ahuja ID. 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 - PEG tube placed on 02/27/2018. On Glucerna 1.5 with a goal 45cc/hour. Fast Food Delivery Driver to adjust the rate. Hx of PE - D/C Lovenox. re-start Apixaban. Fever -Low grade fever. -Urinalysis on 02/25/2018 was unremarkable. Chest x-ray on 02/26/2018 did not reveal any infiltrates. -Continue broad-spectrum antibiotics including Zosyn and vancomycin. ID consulted appreciate recommendations. Follow up cultures -Possibly due to aspiration although IV access is a possible source. RN to check date of patient's IV line. Mild Hypokalemia - K+ is 3.3. Will replace with KCL via PEG tube. Full code. Apixaban 5mg BID. Discussed with the nurse, case management Discharge plan. Family will like to take him home initially however they decided much for the take care at home and wants to explore rehab/long-term. Case management is following for discharge Results - Labs CBC & Chem 7: 02/27/18 13:38 03/05/18 06:00 Laboratory Results - last 24 hr 03/04/18 03/05/18 03/05/18 23:13 06:00 07:58 Creatinine 0.82 Estimated GFR Greater than 89 POC Glucose 232 H 258 H 03/05/18 03/05/18 12:32 17:28 Creatinine Estimated GFR POC Glucose 189 H 181 H - Procedures PEG tube was placed on 02/27/2018. Assessment and Plan - Assessment (1) Sepsis Code(s): A41.9 - Sepsis, unspecified organism Status: Acute (2) Malnutrition Code(s): E46 - Unspecified protein-calorie malnutrition Status: Acute (3) PEG (percutaneous endoscopic gastrostomy) status Code(s): Z93.1 - Gastrostomy status Status: Acute
[2018-03-06] MEDS: Dextrose 5%/Lactated Ringer's 1,000 ML IV.CONT SCH ×2 (04:11→19:42)
--- NOTE | 2018-03-06 07:48 | P.PN ---
Physical Exam Vital signs: Vital Signs 03/05/18 08:00 03/05/18 12:00 03/05/18 16:00 Temperature 98.2 F 98.7 F 99.5 F Pulse Rate 107 H 103 H 108 H Respiratory Rate 18 18 Blood Pressure 106/57 L 117/57 L 121/58 L Pulse Oximetry 18 L 03/05/18 20:00 03/06/18 00:00 03/06/18 04:00 Temperature 98.0 F 98.5 F 98.0 F Pulse Rate 108 H 109 H 102 H Respiratory Rate 17 17 18 Blood Pressure 100/52 L 104/62 100/62 Pulse Oximetry 97 98 99 Intake & Output 03/05/18 03/06/18 03/06/18 18:59 06:59 18:59 Intake Total 1000 / 1000 1000 / 1000 Balance 1000 / 1000 1000 / 1000 Weight 60.3 kg Intake: IV 1000 / 1000 1000 / 1000 D5W/LR Inj 1,000 ML @ 84 mls/hr 1000 / 1000 1000 / 1000 IV.CONT .[id number] [facility] Rx#: [id number] Other: # Voids 2 4 Date of Last Bowel Movement 03/05/18 03/06/18 # Bowel Movements 2 2 Narrative: Subjective Interval history: Follow up for dementia, Dysphagia, hx of PE and possible aspiration pneumonia. Flat affect, not interactive. Tracking. Doesn't appear in acute distress. He is not coughing. ID stopped antibiotics, cleared by ID, can be DC Family will like to take him home initially however they decided much for the take care at home and wants to explore rehab/long-term. CM is following for DC plan. No n/v/d/c. Tolerates tube feedings well Physical Exam GENERAL: Elderly male, appears in nad, with dementia, pleasantly confused SKIN: Warm and dry. CARDIOVASCULAR: Regular rate and rhythm without murmurs, gallops, or rubs. RESPIRATORY: Breath sounds equal bilaterally. No accessory muscle use. GASTROINTESTINAL: Abdomen soft, non-tender, nondistended. MUSCULOSKELETAL: No cyanosis, or edema. BACK: Nontender without obvious deformity. No CVA tenderness. Assessment and Plan This is a 77-year-old male was brought in by his family because of altered mental status. Patient is nonverbal. Reportedly patient has been losing weight and not swallowing. Every time he is given food he would spit it out. 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 Does not follow any commands. - Discussed with Family and Hospice. - Patient's family at this point want full aggressive care. - High risk for aspiration. Will keep pt on NPO status. - Will d/c D5-LR when tube feeding starts. Acute encephalopathy toxic with persistent high grade fevers on admission, resolving, patient at his baseline SIRS/SEPSIS criteria on admission. persistent irma grade fevers, tachycardia on admission , poss aspiration PNA and UTI. The patient was started on IV abx zosyn and vanco Blood cx negative ID consulted, abx DCd No source of infection however was presumed aspiration pna and UTI on admission. U cx neg and CXR no infiltrates Discussed with Dr Ahuja ID. 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 - PEG tube placed on 02/27/2018. On Glucerna 1.5 with a goal 45cc/hour. Prototype Engineer to adjust the rate. Hx of PE - D/C Lovenox. re-start Apixaban. Fever -Low grade fever. -Urinalysis on 02/25/2018 was unremarkable. Chest x-ray on 02/26/2018 did not reveal any infiltrates. -Continue broad-spectrum antibiotics including Zosyn and vancomycin. ID consulted appreciate recommendations. Follow up cultures -Possibly due to aspiration although IV access is a possible source. RN to check date of patient's IV line. Mild Hypokalemia - K+ is 3.3. Will replace with KCL via PEG tube. Full code. Apixaban 5mg BID. Discussed with the nurse, case management Discharge plan. Family plan to take him home initially however they decided he requires much more care and might not be able to take care of him at home and wants to explore rehab/long-term. Case management is following for discharge plan. Results - Labs CBC & Chem 7: 02/27/18 13:38 03/05/18 06:00 Laboratory Results - last 24 hr 03/05/18 03/05/18 03/05/18 07:58 12:32 17:28 POC Glucose 258 H 189 H 181 H 03/05/18 03/05/18 21:13 21:15 POC Glucose 251 H 281 H - Procedures PEG tube was placed on 02/27/2018. Assessment and Plan - Assessment (1) Sepsis Code(s): A41.9 - Sepsis, unspecified organism Status: Acute (2) Malnutrition Code(s): E46 - Unspecified protein-calorie malnutrition Status: Acute (3) PEG (percutaneous endoscopic gastrostomy) status Code(s): Z93.1 - Gastrostomy status Status: Acute
[2018-03-06] MEDS: Metoprolol Tartrate 25 MG Tablet PO SCH ×2 (08:41→22:20)
[2018-03-06] MEDS: Collagenase Oint 30 GM Tube TOPICAL SCH (08:42)
[2018-03-06] MEDS: Insulin NovoLOG Aspart Correctional Sugar Inj SQ SCH ×4 (09:05→22:19)
--- NOTE | 2018-03-07 09:25 | P.PN ---
Physical Exam Vital signs: Vital Signs 03/06/18 12:00 03/06/18 16:00 03/06/18 18:58 Temperature 99.4 F 99.5 F Pulse Rate 105 H 107 H Respiratory Rate 18 Blood Pressure 112/58 L 87/52 L 110/65 Pulse Oximetry 97 18 L 03/06/18 20:00 03/06/18 21:00 03/07/18 00:00 Temperature 100.3 F H 99.8 F H 98.3 F Pulse Rate 114 H 108 H 98 H Respiratory Rate 18 19 18 Blood Pressure 102/58 L 110/66 110/66 Pulse Oximetry 97 100 03/07/18 04:00 Temperature 98.3 F Pulse Rate 96 H Respiratory Rate 18 Blood Pressure 113/62 Pulse Oximetry 96 Intake & Output 03/06/18 03/07/18 03/07/18 18:59 06:59 18:59 Intake Total 1000 / 1000 Balance 1000 / 1000 Weight 92.5 kg Intake: IV 1000 / 1000 D5W/LR Inj 1,000 ML @ 84 mls/hr 1000 / 1000 IV.CONT .[id number] [facility] Rx#: [id number] Other: # Voids 1 Date of Last Bowel Movement 03/06/18 03/07/18 Narrative: Subjective Interval history: Follow up for dementia, Dysphagia, hx of PE and possible aspiration pneumonia. Nonverbal, flat affect, not interactive, in not acute distress. No cough. ID stopped antibiotics, cleared by ID, can be DC Family will like to take him home initially however they decided much for the take care at home and wants to explore rehab/long-term. CM is following for DC plan. No n/v/d/c. Tolerates tube feedings well Physical Exam GENERAL: Elderly male, appears in nad, with dementia, pleasantly confused SKIN: Warm and dry. CARDIOVASCULAR: Regular rate and rhythm without murmurs, gallops, or rubs. RESPIRATORY: Breath sounds equal bilaterally. No accessory muscle use. GASTROINTESTINAL: Abdomen soft, non-tender, nondistended. MUSCULOSKELETAL: No cyanosis, or edema. BACK: Nontender without obvious deformity. No CVA tenderness. Assessment and Plan This is a 77-year-old male was brought in by his family because of altered mental status. Patient is nonverbal. Reportedly patient has been losing weight and not swallowing. Every time he is given food he would spit it out. 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 Does not follow any commands. - Discussed with Family and Hospice. - Patient's family at this point want full aggressive care. - High risk for aspiration. Will keep pt on NPO status. - Will d/c D5-LR when tube feeding starts. Acute encephalopathy toxic with persistent high grade fevers on admission, resolving, patient at his baseline SIRS/SEPSIS criteria on admission. persistent irma grade fevers, tachycardia on admission , poss aspiration PNA and UTI. The patient was started on IV abx zosyn and vanco Blood cx negative ID consulted, abx DCd per ID No source of infection however was presumed aspiration pna and UTI on admission. U cx neg and CXR no infiltrates Discussed with Dr Ahuja ID. 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 - PEG tube placed on 02/27/2018. On Glucerna 1.5 with a goal 45cc/hour. Health And Safety Instructor to adjust the rate. Hx of PE - D/C Lovenox. re-start Apixaban. Fever -Low grade fever. -Urinalysis on 02/25/2018 was unremarkable. Chest x-ray on 02/26/2018 did not reveal any infiltrates. -Continue broad-spectrum antibiotics including Zosyn and vancomycin. ID consulted appreciate recommendations. Follow up cultures -Possibly due to aspiration although IV access is a possible source. RN to check date of patient's IV line. Mild Hypokalemia - K+ is 3.3. Will replace with KCL via PEG tube. Full code. Apixaban 5mg BID. Discussed with the nurse, case management Discharge plan. Family plan to take him home initially however they decided he requires much more care and might not be able to take care of him at home and wants to explore rehab/long-term. Case management is following for discharge plan. Results - Labs CBC & Chem 7: 02/27/18 13:38 03/05/18 06:00 Laboratory Results - last 24 hr 03/06/18 03/06/18 03/06/18 12:16 18:04 21:32 POC Glucose 146 H 182 H 245 H 03/07/18 08:17 POC Glucose 335 H - Procedures PEG tube was placed on 02/27/2018. Assessment and Plan - Assessment (1) Sepsis Code(s): A41.9 - Sepsis, unspecified organism Status: Acute (2) Malnutrition Code(s): E46 - Unspecified protein-calorie malnutrition Status: Acute (3) PEG (percutaneous endoscopic gastrostomy) status Code(s): Z93.1 - Gastrostomy status Status: Acute
[2018-03-07] MEDS: Insulin NovoLOG Aspart Correctional Sugar Inj SQ SCH ×4 (09:33→23:16)
[2018-03-07] MEDS: Metoprolol Tartrate 25 MG Tablet PO SCH ×2 (09:34→23:16)
[2018-03-07] MEDS: Collagenase Oint 30 GM Tube TOPICAL SCH (12:39)
[2018-03-07 20:41] LABS: Baso # (Auto) 0.1 th/mm3 (0.0-0.2); Baso % (Auto) 0.7 % (0.0-2.0); Eos # (Auto) 0.2 th/mm3 (0.0-0.4); Eos % (Auto) 2.2 % (0.0-4.0); Hematocrit 34.6 % (39.0-51.0); Hemoglobin 11.4 gm/dL (13.0-17.0); Lymph # (Auto) 1.3 th/mm3 (1.0-4.8); Lymph % (Auto) 12.5 % (9.0-44.0); Mean Corpuscular HGB Conc 32.9 % (32.0-36.0); Mean Corpuscular Volume 82.2 fL (80.0-100.0); Mean Platelet Volume 6.8 fL (7.0-11.0); Mono # (Auto) 0.7 th/mm3 (0.0-0.9); Neut # (Auto) 7.9 th/mm3 (1.8-7.7); Neut % (Auto) 77.6 % (16.0-70.0); Platelet Count 639 th/mm3 (150-450); Red Blood Count 4.21 mil/mm3 (4.50-5.90); Red Cell Distribution Width 15.4 % (11.6-17.2); White Blood Count 10.2 th/mm3 (4.0-11.0)
[2018-03-07 21:12] LABS: Anion Gap 7 meq/L (5-15); Blood Urea Nitrogen 11 mg/dL (7-18); Calcium 8.5 mg/dL (8.5-10.1); Chloride 99 meq/L (98-107); Glomerular Filtration Rate Greater Than 89 mL/min (>89); Glucose,Random 196 mg/dL (74-106); Magnesium 1.8 mg/dL (1.5-2.5); Potassium 4.2 meq/L (3.5-5.1); Sodium 135 meq/L (136-145)
[2018-03-07 21:14] LABS: Phosphorus 3.2 mg/dL (2.5-4.9)
[2018-03-08] MEDS: Dextrose 5%/Lactated Ringer's 1,000 ML IV.CONT SCH ×2 (00:44→00:45)
[2018-03-08] MEDS: Metoprolol Tartrate 25 MG Tablet PO SCH ×2 (09:38→21:06)
[2018-03-08] MEDS: Insulin NovoLOG Aspart Correctional Sugar Inj SQ SCH ×4 (09:38→21:06)
[2018-03-08] MEDS: Collagenase Oint 30 GM Tube TOPICAL SCH (09:39)
--- NOTE | 2018-03-08 11:27 | P.PN ---
Physical Exam Vital signs: Vital Signs 03/07/18 12:00 03/07/18 16:00 03/07/18 20:00 Temperature 97.4 F L 97.3 F L Pulse Rate 94 H 95 H Respiratory Rate 16 16 18 Blood Pressure 110/64 106/63 104/57 L Pulse Oximetry 100 99 97 03/08/18 00:00 03/08/18 04:00 03/08/18 08:00 Temperature 99.7 F H 98.0 F 98.3 F Pulse Rate 89 100 H 80 Respiratory Rate 18 18 18 Blood Pressure 114/61 109/67 114/57 L Pulse Oximetry 98 99 99 Intake & Output 03/07/18 03/08/18 03/08/18 18:59 06:59 18:59 Intake Total 999 Balance 999 Weight 63.1 kg Intake: IV 999 D5W/LR Inj 1,000 ML @ 84 mls/hr 999 IV.CONT .[id number] [facility] Rx#: [id number] Other: # Voids 1 # Incontinent Voids 1 # Bowel Movements 1 1 # Incontinent Bowel Movements 1 Narrative: Subjective Interval history: Follow up for dementia, Dysphagia, hx of PE and possible aspiration pneumonia. Nonverbal, flat affect, not interactive, in not acute distress. No cough. ID stopped antibiotics, cleared by ID, can be DC Family will like to take him home initially however they decided much for the take care at home and wants to explore rehab/long-term. CM is following for DC plan. No n/v/d/c. Tolerates tube feedings well Physical Exam GENERAL: Elderly male, appears in nad, with dementia, pleasantly confused SKIN: Warm and dry. CARDIOVASCULAR: Regular rate and rhythm without murmurs, gallops, or rubs. RESPIRATORY: Breath sounds equal bilaterally. No accessory muscle use. GASTROINTESTINAL: Abdomen soft, non-tender, nondistended. MUSCULOSKELETAL: No cyanosis, or edema. BACK: Nontender without obvious deformity. No CVA tenderness. Assessment and Plan This is a 77-year-old male was brought in by his family because of altered mental status. Patient is nonverbal. Reportedly patient has been losing weight and not swallowing. Every time he is given food he would spit it out. 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 Does not follow any commands. - Discussed with Family and Hospice. - Patient's family at this point want full aggressive care. - High risk for aspiration. Will keep pt on NPO status. - Will d/c D5-LR when tube feeding starts. Acute encephalopathy toxic with persistent high grade fevers on admission, resolving, patient at his baseline SIRS/SEPSIS criteria on admission. persistent irma grade fevers, tachycardia on admission , poss aspiration PNA and UTI. The patient was started on IV abx zosyn and vanco Blood cx negative ID consulted, abx DCd per ID No source of infection however was presumed aspiration pna and UTI on admission. U cx neg and CXR no infiltrates Discussed with Dr Ahuja ID. 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 - PEG tube placed on 02/27/2018. On Glucerna 1.5 with a goal 45cc/hour. Quotation Checker to adjust the rate. Hx of PE - D/C Lovenox. re-start Apixaban. Fever -Low grade fever. -Urinalysis on 02/25/2018 was unremarkable. Chest x-ray on 02/26/2018 did not reveal any infiltrates. -Continue broad-spectrum antibiotics including Zosyn and vancomycin. ID consulted appreciate recommendations. Follow up cultures -Possibly due to aspiration although IV access is a possible source. RN to check date of patient's IV line. Mild Hypokalemia - K+ is 3.3. Will replace with KCL via PEG tube. Full code. Apixaban 5mg BID. Discussed with the nurse, case management Discharge plan. Family plan to take him home initially however they decided he requires much more care and might not be able to take care of him at home and wants to explore rehab/long-term. Case management is following for discharge plan. Results - Labs CBC & Chem 7: 03/07/18 19:56 03/07/18 19:56 Laboratory Results - last 24 hr 03/07/18 03/07/18 03/07/18 12:01 16:31 19:56 WBC 10.2 RBC 4.21 L Hgb 11.4 L Hct 34.6 L MCV 82.2 MCH 27.0 MCHC 32.9 RDW 15.4 Plt Count 639 H D MPV 6.8 L Neut % (Auto) 77.6 H Lymph % (Auto) 12.5 [place] % (Auto) 7.0 Eos % (Auto) 2.2 Baso % (Auto) 0.7 Neut # (Auto) 7.9 H Lymph # (Auto) 1.3 [place] # (Auto) 0.7 Eos # (Auto) 0.2 Baso # (Auto) 0.1 WBC Differential . Differential Comment Auto diff final Sodium Potassium Chloride Carbon Dioxide Anion Gap BUN Creatinine Estimated GFR POC Glucose 189 H 158 H Random Glucose Calcium Phosphorus Magnesium 03/07/18 03/07/18 03/08/18 19:56 23:07 08:03 WBC RBC Hgb Hct MCV MCH MCHC RDW Plt Count MPV Neut % (Auto) Lymph % (Auto) [place] % (Auto) Eos % (Auto) Baso % (Auto) Neut # (Auto) Lymph # (Auto) [place] # (Auto) Eos # (Auto) Baso # (Auto) WBC Differential Differential Comment Sodium 135 L Potassium 4.2 Chloride 99 Carbon Dioxide 29.0 Anion Gap 7 BUN 11 Creatinine 0.65 Estimated GFR Greater than 89 POC Glucose 226 H 196 H Random Glucose 196 H Calcium 8.5 Phosphorus 3.2 Magnesium 1.8 - Procedures PEG tube was placed on 02/27/2018. Assessment and Plan - Assessment (1) Sepsis Code(s): A41.9 - Sepsis, unspecified organism Status: Acute (2) Malnutrition Code(s): E46 - Unspecified protein-calorie malnutrition Status: Acute (3) PEG (percutaneous endoscopic gastrostomy) status Code(s): Z93.1 - Gastrostomy status Status: Acute
--- NOTE | 2018-03-09 08:31 | P.PN ---
Physical Exam Vital signs: Vital Signs 03/08/18 12:00 03/08/18 16:00 03/08/18 20:00 Temperature 98.8 F 98.9 F 98.7 F Pulse Rate 98 H 108 H 114 H Respiratory Rate 18 18 18 Blood Pressure 103/59 L 112/65 91/52 L Pulse Oximetry 95 97 96 03/09/18 00:00 Temperature 98.4 F Pulse Rate 92 H Respiratory Rate 18 Blood Pressure 98/56 L Pulse Oximetry 96 Intake & Output 03/08/18 03/09/18 03/09/18 18:59 06:59 18:59 Other: # Voids 1 # Bowel Movements 1 Narrative: Subjective Interval history: Follow up for dementia, Dysphagia, hx of PE and possible aspiration pneumonia. Nonverbal, flat affect, not interactive, in not acute distress. Has dry cough. ID stopped antibiotics, cleared by ID, can be DC Family will like to take him home initially however they decided much for the take care at home and wants to explore rehab/long-term. CM is following for DC plan. No n/v/d/c. Tolerates tube feedings well Physical Exam GENERAL: Elderly male, appears in nad, with dementia, pleasantly confused SKIN: Warm and dry. CARDIOVASCULAR: Regular rate and rhythm without murmurs, gallops, or rubs. RESPIRATORY: Breath sounds equal bilaterally. No accessory muscle use. GASTROINTESTINAL: Abdomen soft, non-tender, nondistended. MUSCULOSKELETAL: No cyanosis, or edema. BACK: Nontender without obvious deformity. No CVA tenderness. Assessment and Plan This is a 77-year-old male was brought in by his family because of altered mental status. Patient is nonverbal. Reportedly patient has been losing weight and not swallowing. Every time he is given food he would spit it out. 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 Does not follow any commands. - Discussed with Family and Hospice. - Patient's family at this point want full aggressive care. - High risk for aspiration. Will keep pt on NPO status. - Will d/c D5-LR when tube feeding starts. Acute encephalopathy toxic with persistent high grade fevers on admission, resolving, patient at his baseline SIRS/SEPSIS criteria on admission. persistent irma grade fevers, tachycardia on admission , poss aspiration PNA and UTI. The patient was started on IV abx zosyn and vanco Blood cx negative ID consulted, abx DCd per ID No source of infection however was presumed aspiration pna and UTI on admission. U cx neg and CXR no infiltrates Discussed with Dr Ahuja ID. 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 - PEG tube placed on 02/27/2018. On Glucerna 1.5 with a goal 45cc/hour. Oven Worker to adjust the rate. Hx of PE - D/C Lovenox. re-start Apixaban. Fever -Low grade fever. -Urinalysis on 02/25/2018 was unremarkable. Chest x-ray on 02/26/2018 did not reveal any infiltrates. -Continue broad-spectrum antibiotics including Zosyn and vancomycin. ID consulted appreciate recommendations. Follow up cultures -Possibly due to aspiration although IV access is a possible source. RN to check date of patient's IV line. Mild Hypokalemia - K+ is 3.3. Will replace with KCL via PEG tube. Full code. Apixaban 5mg BID. Discussed with the nurse, case management Discharge plan. Family plan to take him home initially however they decided he requires much more care and might not be able to take care of him at home and wants to explore rehab/long-term. Case management is following for discharge plan. Results - Labs CBC & Chem 7: 03/07/18 19:56 03/07/18 19:56 Laboratory Results - last 24 hr 03/08/18 03/08/18 03/08/18 11:59 17:16 20:57 POC Glucose 219 H 268 H 215 H 03/09/18 07:50 POC Glucose 280 H - Procedures PEG tube was placed on 02/27/2018. Assessment and Plan - Assessment (1) Sepsis Code(s): A41.9 - Sepsis, unspecified organism Status: Acute (2) Malnutrition Code(s): E46 - Unspecified protein-calorie malnutrition Status: Acute (3) PEG (percutaneous endoscopic gastrostomy) status Code(s): Z93.1 - Gastrostomy status Status: Acute
[2018-03-09] MEDS: Metoprolol Tartrate 25 MG Tablet PO SCH ×2 (09:03→22:33)
[2018-03-09] MEDS: Insulin NovoLOG Aspart Correctional Sugar Inj SQ SCH ×4 (09:04→23:02)
[2018-03-09] MEDS: Collagenase Oint 30 GM Tube TOPICAL SCH (09:05)
[2018-03-09] MEDS ORDERED: Sodium Chlor 0.9% Inj 500 ML IV.SIG ONE (14:18)
[2018-03-09 20:58] LABS: Glomerular Filtration Rate Greater Than 89 mL/min (>89)
--- NOTE | 2018-03-10 08:03 | P.PN ---
Subjective Interval history: Follow up for dementia, Dysphagia, hx of PE and possible aspiration pneumonia. Patient seen and examined. Patient is nonverbal. Not in any acute distress. DW nursing staff, no acute issues noted. Tolerating tube feedings. Physical Exam Vital signs: Vital Signs 03/09/18 08:00 03/09/18 12:00 03/09/18 12:30 Temperature 98.7 F 98.5 F Pulse Rate 124 H 107 H Respiratory Rate 18 18 Blood Pressure 109/63 84/48 L 85/50 L Pulse Oximetry 95 95 03/09/18 13:20 03/09/18 16:00 03/09/18 20:00 Temperature 98.2 F 97.7 F Pulse Rate 107 H 104 H Respiratory Rate 18 18 Blood Pressure 95/54 L 109/65 105/59 L Pulse Oximetry 95 97 03/10/18 00:00 Temperature 97.7 F Pulse Rate 98 H Respiratory Rate 18 Blood Pressure 104/56 L Pulse Oximetry 97 Intake & Output 03/09/18 03/10/18 03/10/18 18:59 06:59 18:59 Intake Total 762 / 762 Balance 762 / 762 Intake: IV 500 / 500 NS Inj 500 ML @ Wide Open IV. 500 / 500 SIG BOLUS ONE Rx#:[id number] Tube Feeding 262 / 262 Other: # Voids 1 Date of Last Bowel Movement 03/09/18 # Bowel Movements 1 Narrative: GENERAL: Thin chronically ill appearing elderly male, INAD. Awake. No verbal response. Does not follow commands. SKIN: Warm and dry. HEENT: NC/AT. PERRLA. Sclera anicteric. No nasal drainage. MMM. CARDIOVASCULAR: Regular rate and rhythm without murmurs, gallops, or rubs. RESPIRATORY: Breath sounds equal bilaterally. No accessory muscle use. Poor effort. GASTROINTESTINAL: Abdomen soft, non-tender, nondistended. +BS. PEG site C/D/I. MUSCULOSKELETAL: No cyanosis, or edema. NEUROLOGICAL: Awake . No obvious cranial nerve deficits. Does not follow commands. Nonverbal. PSYCHIATRIC: Calm, unable to assess further. Results - Labs CBC & Chem 7: 03/07/18 19:56 03/09/18 18:40 Laboratory Results - last 24 hr 03/09/18 03/09/18 03/09/18 11:59 16:56 18:40 Creatinine 0.78 Estimated GFR Greater than 89 POC Glucose 198 H 245 H 03/09/18 03/10/18 21:51 07:48 Creatinine Estimated GFR POC Glucose 286 H 260 H - Imaging ITS Impressions Gastrostomy Tube Placement 02/27/18 00:00 CONCLUSION: 1. Uncomplicated gastrostomy tube placement as above. Tube position within the stomach was verified. Chest X-Ray 02/28/18 13:52 CONCLUSION: Negative examination. Abdomen/Pelvis CT 03/01/18 00:00 CONCLUSION: 1. Benign appearing cyst in the pancreas. 2. No evidence of ileus. No evidence of free fluid. - Procedures PEG tube was placed on 02/27/2018. Assessment and Plan - Plan This is a 77-year-old male was brought in by his family because of altered mental status. Patient is nonverbal. Reportedly patient has been losing weight and not swallowing. Every time he is given food he would spit it out. End stage Dementia Hx of TIA, CVA, TBI. Does not follow any commands. - Per previous note, Discussed with Family and Hospice. Palliative care following. Patient's family at this point want full aggressive care. - continue on tube feedings - Continue on Namenda and Aricept Acute encephalopathy toxic with persistent high grade fevers on admission, resolving, patient at his baseline SIRS/SEPSIS criteria on admission. persistent high grade fevers, tachycardia on admission , poss aspiration PNA and UTI. The patient was started on IV abx zosyn and vanco Blood cx negative - ID consulted, abx DCd per ID No source of infection however was presumed aspiration pna and UTI on admission. U cx neg and CXR no infiltrates Discussed with Dr Ahuja ID. 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 - PEG tube placed on 02/27/2018. On Glucerna 1.5 with a goal 45cc/hour. Marketing Programs Manager to adjust the rate. Hx of PE - Continue on Apixaban Diabetes, not well controlled - continue on accucheks and ISS - Levemir 5u qhs - continue to monitor BS and adjust treatment DVT prophylaxis - patient is on Apixaban Code Status: FULL Discussed Condition With: patient, nursing staff, CM Discharge Planning: Difficult placement, needs petroleum terminal plant operator placement. CM assisting with ongoing discharge planning.
[2018-03-10] MEDS: Insulin NovoLOG Aspart Correctional Sugar Inj SQ SCH ×4 (08:49→21:30)
[2018-03-10] MEDS: Metoprolol Tartrate 25 MG Tablet PO SCH ×2 (08:50→22:50)
[2018-03-10] MEDS: Collagenase Oint 30 GM Tube TOPICAL SCH (08:52)
[2018-03-10] MEDS ORDERED: Insulin Detemir Inj 1,000 UNIT/10 ML Vial SQ SCH (21:00)
[2018-03-11] MEDS ORDERED: Sod Chloride 0.9% Inj 1,000 ML IV.SIG ONE (05:08)
[2018-03-11 08:09] LABS: Glomerular Filtration Rate Greater Than 89 mL/min (>89)
[2018-03-11] MEDS: Metoprolol Tartrate 25 MG Tablet PO SCH ×2 (09:01→22:35)
[2018-03-11] MEDS: Insulin Detemir Inj 1,000 UNIT/10 ML Vial SQ SCH ×2 (09:02→22:35)
[2018-03-11] MEDS: Insulin NovoLOG Aspart Correctional Sugar Inj SQ SCH ×4 (09:02→22:36)
[2018-03-11] MEDS: Collagenase Oint 30 GM Tube TOPICAL SCH (09:03)
--- NOTE | 2018-03-11 11:43 | XR ---
EXAM DATE: 03/11/2018 10:45 AM EDT AGE/SEX: 77 years / Male INDICATIONS: Cough. CLINICAL DATA: This is the patient's subsequent encounter. Patient reports that signs and symptoms h ave been present for 1 week and indicates a pain score of Nonresponsive. MEDICAL/SURGICAL HISTORY: . Cerebrovascular disease. Cardiovascular disease. Hypertension. Diab etes, dementia, seizures. None. COMPARISON: [facility], CHEST SINGLE AP, 06/22/2014. . FINDINGS: The left diaphragm is again noted to be moderately elevated. There is slight parenchymal opacity at t he left lung base. The right lung is grossly clear. Cardiac contours are unchanged. CONCLUSION: Elevated left diaphragm of undetermined etiology. Slight parenchymal opacity at the left lung base. Electronically signed by: Baldev Urbano MD 03/11/2018 11:42 AM EDT
--- NOTE | 2018-03-11 17:08 | P.DIET ---
Nutritional Evaluation Type of nutrition evaluation: follow-up Nutrition consult regarding: Tube Feeding Nutrition screening: Weight Loss > 10 lbs, MDC Subjective Subjective Comments: Requested TF rate increase from pt's nurse. Objective - Diagnosis AMS - Objective % IBW: 78 (IBW = 160#) Body Weight Used for Calculations: Actual (56.4 kg) Energy Needs - Lower Range (kCal/kg): 32 Energy Needs - Upper Range (kCal/kg): 36 Lower Limit kCal/kg (kCals): 1,805 Upper Limit kCal/kg (kCals): 2,030 Lower Limit Protein Factor (Grams per Kg): 1.2 Upper Limit Protein Factor (Grams per Kg): 1.6 Lower Protein Needs (Protein): 68 Upper Protein Needs (Protein): 90 Dietitian Reviewed in Medical Record: Curent medications, Intake & Output, Labs , Medical history, Tube feeding, Wound/DTI Diet Order: NPO Speech Therapy Recommendations: Yes (Strict NPO) Wound Care Note: 02/24 WOCN note: Unstageable pressure injury to sacrum; Left Ankle Stage II and Left Heel Unstageable wound Objective Comments: PMH: Dementia, DM, TIA, CVA, TBI, HTN, CAD, Hyperlipidemia, GERD s/p PEG tube placement 02/27 BMI 18.4 Feeding - Current Tube Feeding Tube Feeding Product: Glucerna 1.5 Tube Feeding Rate: 45 Tube Feeding Route: gastrostomy Current kCals Provided by Tube Feedin,620 Current Protein Provided by Tube Feeding (gPRO): 89 Current Free H2O Provided (m/l): 820 Assessment Assessment: Pt at nutritional risk r/t recent wt loss and need for Strict NPO requiring TF' ing for nutrition support. Current TF'ing rate does not meet pt's assessed needs. Rec TF'ing w/ Glucerna 1.5 @ goal rate 55 ml/hr continuous, to offer 1980 kcal, 108.9g protein and 1002ml free water. Wt changes noted. Recommendations: Glucerna 1.5 @ 55 mls/hr goal Dietitian to Monitor: Intake & Output, Tube feeding tolerance, Weight change, Wound/skin status, Medical course
--- NOTE | 2018-03-11 17:57 | P.PN ---
Subjective Interval history: Late entry, patient seen earlier today. Follow-up on patient with dementia, dysphagia, possible aspiration pneumonia. Patient seen and examined. Patient remains nonverbal. He appears to be comfortable and is not in any distress. Discussed with nursing staff who reports dry cough. Physical Exam Vital signs: Vital Signs 03/10/18 20:00 03/11/18 00:00 03/11/18 04:00 Temperature 98.3 F 98.5 F 98.6 F Pulse Rate 104 H 105 H 103 H Respiratory Rate 18 18 18 Blood Pressure 112/63 110/69 115/65 Pulse Oximetry 99 99 98 03/11/18 08:00 03/11/18 12:00 Temperature 98.6 F 98.7 F Pulse Rate 112 H 93 H Respiratory Rate 16 18 Blood Pressure 108/66 113/69 Pulse Oximetry 99 94 L Intake & Output 03/10/18 03/11/18 03/11/18 18:59 06:59 18:59 Intake Total 434 / 434 1421 / 1421 Balance 434 / 434 1421 / 1421 Intake: IV 1000 / 1000 NS Inj 1,000 ML @ Wide Open IV. 1000 / 1000 SIG BOLUS ONE Rx#:[id number] Tube Feeding 434 / 434 421 / 421 Other: # Voids 2 2 Date of Last Bowel Movement 03/09/18 Narrative: GENERAL: Thin chronically ill appearing elderly male, INAD. Awake. No verbal response. Does not follow any commands. Appears comfortable. SKIN: Warm and dry. HEENT: NC/AT. PERRLA. Sclera anicteric. No nasal drainage. MMM. CARDIOVASCULAR: Regular rate and rhythm without murmurs, gallops, or rubs. RESPIRATORY: Breath sounds equal bilaterally. No accessory muscle use. Poor effort. GASTROINTESTINAL: Abdomen soft, non-tender, nondistended. +BS. PEG site C/D/I. MUSCULOSKELETAL: No cyanosis, or edema. NEUROLOGICAL: Awake. No obvious cranial nerve deficits. Does not follow commands. Nonverbal. PSYCHIATRIC: Calm, unable to assess further. Results - Labs CBC & Chem 7: 03/07/18 19:56 03/11/18 05:56 Laboratory Results - last 24 hr 03/10/18 03/11/18 03/11/18 20:30 05:56 07:38 Creatinine 0.83 Estimated GFR Greater than 89 POC Glucose 251 H 254 H 03/11/18 03/11/18 11:45 16:23 Creatinine Estimated GFR POC Glucose 175 H 166 H - Imaging Impressions Chest X-Ray 03/11/18 00:00 CONCLUSION: Elevated left diaphragm of undetermined etiology. Slight parenchymal opacity at the left lung base. - Procedures PEG tube was placed on 02/27/2018. Assessment and Plan - Plan This is a 77-year-old male was brought in by his family because of altered mental status. Patient is nonverbal. Reportedly patient has been losing weight and not swallowing. Every time he is given food he would spit it out. End stage Dementia Hx of TIA, CVA, TBI. Does not follow any commands. - Per previous note, Discussed with Family and Hospice. Palliative care following. Patient's family at this point want full aggressive care. - High risk for aspiration. Patient to remain n.p.o. Continue on tube feedings. - Continue on Namenda and Aricept Cough CXR obtained revealing elevated left diaphragm of undetermined etiology. Slight parenchymal opacity at the left lung base, images reviewed by me - Patient appears to be breathing comfortably. O2 sats 94% on room air. He is afebrile. - obtain CBC to evaluate white count - Scheduled duo nebs - acapella - Continue to monitor respiratory status. Supplemental oxygen as needed Acute encephalopathy toxic with persistent high grade fevers on admission, resolving, patient at his baseline SIRS/SEPSIS criteria on admission. persistent high grade fevers, tachycardia on admission , poss aspiration PNA and UTI. The patient was treated with IV abx zosyn and vanco Blood cx negative - ID consulted, abx DCd per ID No source of infection however was presumed aspiration pna and UTI on admission. U cx neg and CXR no infiltrates Discussed with Dr Ahuja ID. 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 - PEG tube placed on 02/27/2018. On Glucerna 1.5 with a goal 45cc/hour. Increase rate to 55cc/hr per sanitation truck cleaner orders. Hx of PE - Continue on Apixaban Diabetes, not well controlled - continue on accucheks and ISS - blood sugar 254 this am, Increase Levemir to 5u BID - continue to monitor BS and adjust treatment DVT prophylaxis - patient is on Apixaban Code Status: FULL Discussed Condition With: patient, RN, CM, Dr. Willingham Discharge Planning: Difficult placement, needs termite helper placement. CM assisting with ongoing discharge planning. Patient tentatively accepted at the [facility] pending financials.
[2018-03-11 18:10] LABS: Baso # (Auto) 0.1 th/mm3 (0.0-0.2); Baso % (Auto) 0.6 % (0.0-2.0); Eos # (Auto) 0.2 th/mm3 (0.0-0.4); Eos % (Auto) 1.9 % (0.0-4.0); Hematocrit 35.3 % (39.0-51.0); Hemoglobin 11.9 gm/dL (13.0-17.0); Lymph # (Auto) 1.3 th/mm3 (1.0-4.8); Lymph % (Auto) 12.5 % (9.0-44.0); Mean Corpuscular HGB Conc 33.7 % (32.0-36.0); Mean Corpuscular Hemoglobin 27.6 pg (27.0-34.0); Mean Platelet Volume 7.1 fL (7.0-11.0); Mono # (Auto) 0.8 th/mm3 (0.0-0.9); Mono % (Auto) 7.4 % (0.0-8.0); Neut # (Auto) 8.3 th/mm3 (1.8-7.7); Neut % (Auto) 77.6 % (16.0-70.0); Platelet Count 629 th/mm3 (150-450); White Blood Count 10.7 th/mm3 (4.0-11.0)
[2018-03-11 19:24] LABS: Platelet Morphology Normal (Normal); Tear Drop Cells 1+
--- NOTE | 2018-03-11 20:54 | ECG ---
Date Performed: 03/11/2018 Time Performed: 19:39:33 PTAGE: 77 years EKG: SINUS TACHYCARDIA WITH SHORT FL INTERVAL INCOMPLETE RIGHT BUNDLE BRANCH BLOCK ABNORMAL RHYT ECG PREVIOUS TRACING : 12/31/2017 17.38 No significant change from previous tracing noted. DOCTOR: Chacho Erickson Interpretating Date/Time 03/11/2018 20:53:42
[2018-03-11 22:56] LABS: Alanine Aminotransferase 29 U/L (12-78); Albumin 2.1 g/dL (3.4-5.0); Anion Gap 7 meq/L (5-15); Aspartate Aminotransferase 46 U/L (15-37); Blood Urea Nitrogen 15 mg/dL (7-18); Carbon Dioxide 29.8 meq/L (21.0-32.0); Chloride 100 meq/L (98-107); Glomerular Filtration Rate Greater Than 89 mL/min (>89); Glucose,Random 187 mg/dL (74-106); Magnesium 1.9 mg/dL (1.5-2.5); Phosphorus 3.7 mg/dL (2.5-4.9); Potassium 5.5 meq/L (3.5-5.1); Sodium 137 meq/L (136-145)
[2018-03-11 22:57] LABS: Alkaline Phosphatase 103 U/L (45-117)
--- NOTE | 2018-03-12 08:13 | P.PN ---
Subjective Interval history: Follow-up on patient with dementia, dysphagia, possible aspiration pneumonia. Patient seen and examined. Patient remains nonverbal. He appears comfortable. Discussed with nursing staff who reports elevated blood sugar. Physical Exam Vital signs: Vital Signs 03/11/18 12:00 03/11/18 16:00 03/11/18 19:50 Temperature 98.7 F 98.5 F Pulse Rate 93 H 104 H 100 H Respiratory Rate 18 Blood Pressure 113/69 111/69 Pulse Oximetry 94 L 100 03/11/18 20:00 03/12/18 00:00 03/12/18 04:00 Temperature 97.8 F 98 F 98 F Pulse Rate 104 H 106 H Respiratory Rate 18 Blood Pressure 109/63 102/60 106/97 H Pulse Oximetry 98 100 98 Intake & Output 03/11/18 03/12/18 03/12/18 18:59 06:59 18:59 Intake Total 1421 / 1421 Balance 1421 / 1421 Weight 55.7 kg Intake: IV 1000 / 1000 NS Inj 1,000 ML @ Wide Open IV. 1000 / 1000 SIG BOLUS ONE Rx#:[id number] Tube Feeding 421 / 421 Other: # Voids 2 1 # Incontinent Voids 1 Date of Last Bowel Movement 03/11/18 # Bowel Movements 2 Narrative: GENERAL: Thin chronically ill appearing elderly male, INAD. Awake. Does not follow commands. Nonverbal. SKIN: Warm and dry. HEENT: NC/AT. PERRLA. Sclera anicteric. No nasal drainage. Dry mucus membranes. CARDIOVASCULAR: Tachycardic without murmurs, gallops, or rubs. RESPIRATORY: Breath sounds equal bilaterally. No accessory muscle use. Poor effort. GASTROINTESTINAL: Abdomen soft, non-tender, nondistended. +BS. PEG site C/D/I. MUSCULOSKELETAL: No cyanosis, or edema. NEUROLOGICAL: Awake. No obvious cranial nerve deficits. Does not follow commands. Nonverbal. PSYCHIATRIC: Calm, unable to assess further. Results - Labs CBC & Chem 7: 03/11/18 17:20 03/12/18 10:49 Laboratory Results - last 24 hr 03/11/18 03/11/18 03/11/18 11:45 16:23 17:20 WBC 10.7 RBC 4.30 L Hgb 11.9 L Hct 35.3 L MCV 82.0 MCH 27.6 MCHC 33.7 RDW 16.0 Plt Count 629 H MPV 7.1 Prelim Diff (Auto) Slide review pending Neut % (Auto) 77.6 H Lymph % (Auto) 12.5 [place] % (Auto) 7.4 Eos % (Auto) 1.9 Baso % (Auto) 0.6 Neut # (Auto) 8.3 H Lymph # (Auto) 1.3 [place] # (Auto) 0.8 Eos # (Auto) 0.2 Baso # (Auto) 0.1 WBC Differential . Diff Scan Auto diff confirmed Differential Comment . Platelet Estimate High H Platelet Morphology Normal Tear Drop Cells 1+ H Sodium Potassium Chloride Carbon Dioxide Anion Gap BUN Creatinine Estimated GFR POC Glucose 175 H 166 H Random Glucose Calcium Phosphorus Magnesium Total Bilirubin AST ALT Alkaline Phosphatase Total Protein Albumin 03/11/18 03/11/18 03/12/18 21:22 22:10 07:48 WBC RBC Hgb Hct MCV MCH MCHC RDW Plt Count MPV Prelim Diff (Auto) Neut % (Auto) Lymph % (Auto) [place] % (Auto) Eos % (Auto) Baso % (Auto) Neut # (Auto) Lymph # (Auto) [place] # (Auto) Eos # (Auto) Baso # (Auto) WBC Differential Diff Scan Differential Comment Platelet Estimate Platelet Morphology Tear Drop Cells Sodium 137 Potassium 5.5 H Chloride 100 Carbon Dioxide 29.8 Anion Gap 7 BUN 15 Creatinine 0.76 Estimated GFR Greater than 89 POC Glucose 238 H 276 H Random Glucose 187 H Calcium 8.0 L Phosphorus 3.7 Magnesium 1.9 Total Bilirubin 0.3 AST 46 H ALT 29 Alkaline Phosphatase 103 Total Protein 7.0 Albumin 2.1 L - Imaging Impressions Chest X-Ray 03/11/18 00:00 CONCLUSION: Elevated left diaphragm of undetermined etiology. Slight parenchymal opacity at the left lung base. - Procedures PEG tube was placed on 02/27/2018. Assessment and Plan - Plan This is a 77-year-old male was brought in by his family because of altered mental status. Patient is nonverbal. Reportedly patient has been losing weight and not swallowing. Every time he is given food he would spit it out. End stage Dementia Hx of TIA, CVA, TBI. Does not follow any commands. - Per previous note, Discussed with Family and Hospice. Palliative care following. Patient's family at this point want full aggressive care. - High risk for aspiration. Patient to remain n.p.o. Continue on tube feedings. - Continue on Namenda and Aricept Cough CXR obtained revealing elevated left diaphragm of undetermined etiology. Slight parenchymal opacity at the left lung base - Patient appears to be breathing comfortably. O2 sats 96% on room air. He is afebrile. White count is normal - Scheduled duo nebs - acapella - Continue to monitor respiratory status. Supplemental oxygen as needed Tachycardic Patient appears hypovolemic on exam EEG shows sinus tachycardia -Give small IV fluid bolus -Increase dose of Lopressor with hold parameters -Monitor for improvement Acute encephalopathy toxic with persistent high grade fevers on admission, resolving, patient at his baseline SIRS/SEPSIS criteria on admission. persistent high grade fevers, tachycardia on admission , poss aspiration PNA and UTI. The patient was treated with IV abx zosyn and vanco Blood cx negative - ID consulted, abx DCd per ID No source of infection however was presumed aspiration pna and UTI on admission. U cx neg and CXR no infiltrates Discussed with Dr Ahuja ID. 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 - PEG tube placed on 02/27/2018. On Glucerna 1.5 with a goal 45cc/hour. Increase rate to 55cc/hr per technology teacher orders. Hx of PE - Continue on Apixaban Diabetes, not well controlled - continue on accucheks and ISS - blood sugars running mid 200s, Increase Levemir to 10u BID - continue to monitor BS and adjust treatment Hyperkalemic K 5.5 - Dose of Kayexalate ordered - Repeat BMP in a.m. DVT prophylaxis - patient is on Apixaban Code Status: FULL Discussed Condition With: patient, RN, CM, Dr. Willingham Discharge Planning: Difficult placement, needs program evaluation consultant placement. CM assisting with ongoing discharge planning. Patient tentatively accepted at the [facility] pending financials.
[2018-03-12] MEDS ORDERED: Sodium Polystyrene Sulfonate/Sorbitol Liq 15 GM/60 ML UDC G-TUBE ONE (08:15)
[2018-03-12] MEDS: Metoprolol Tartrate 25 MG Tablet PO SCH (10:20)
[2018-03-12] MEDS: Insulin Detemir Inj 1,000 UNIT/10 ML Vial SQ SCH ×2 (10:20→21:45)
[2018-03-12] MEDS: Insulin NovoLOG Aspart Correctional Sugar Inj SQ SCH ×4 (11:22→23:16)
[2018-03-12] MEDS: Collagenase Oint 30 GM Tube TOPICAL SCH (11:24)
[2018-03-12] MEDS ORDERED: Sodium Chlor 0.9% Inj 250 ML IV.SIG ONE (17:12)
[2018-03-12] MEDS ORDERED: Metoprolol Tartrate 25 MG Tablet PO SCH (21:00)
--- NOTE | 2018-03-13 06:51 | P.PN ---
Subjective Interval history: Follow-up on patient with dementia, dysphagia, possible aspiration pneumonia. Patient seen and examined. He is nonverbal. Does not follow commands. Appears comfortable. Not in any distress. Discussed with RN, no acute events noted. Physical Exam Vital signs: Vital Signs 03/12/18 08:00 03/12/18 08:21 03/12/18 08:47 Temperature 99.2 F Pulse Rate 103 H 104 H Respiratory Rate 18 16 17 Blood Pressure 110/66 Pulse Oximetry 96 03/12/18 12:00 03/12/18 12:07 03/12/18 16:00 Temperature 99.1 F 98.1 F Pulse Rate 105 H 114 H 110 H Respiratory Rate 18 12 18 Blood Pressure 105/68 117/78 Pulse Oximetry 96 96 03/12/18 19:16 03/12/18 20:00 03/13/18 00:00 Temperature 98.7 F 97.8 F Pulse Rate 110 H 108 H 114 H Respiratory Rate 18 18 16 Blood Pressure 112/65 107/64 Pulse Oximetry 99 97 03/13/18 04:00 Temperature 98.4 F Pulse Rate 107 H Respiratory Rate 16 Blood Pressure 96/54 L Pulse Oximetry 98 Intake & Output 03/12/18 03/12/18 03/13/18 06:59 18:59 06:59 Intake Total 250 / 250 Balance 250 / 250 Weight 55.7 kg 55.1 kg Intake: IV 250 / 250 NS Inj 250 ML @ Wide Open IV. 250 / 250 SIG BOLUS ONE Rx#:[id number] Other: # Voids 1 3 # Incontinent Voids 1 1 # Incontinent Bowel Movements 2 Narrative: GENERAL: Thin chronically ill appearing elderly male, INAD. Awake lying in bed. Appears comfortable. Does not follow commands. Nonverbal. SKIN: Warm and dry. HEENT: NC/AT. PERRLA. Sclera anicteric. No nasal drainage. Dry mucus membranes. CARDIOVASCULAR: Tachycardic without murmurs, gallops, or rubs. RESPIRATORY: Breath sounds equal bilaterally. No accessory muscle use. Poor effort. GASTROINTESTINAL: Abdomen soft, non-tender, nondistended. +BS. PEG site C/D/I. MUSCULOSKELETAL: No cyanosis, or edema. NEUROLOGICAL: Awake. No obvious cranial nerve deficits. Does not follow commands. Nonverbal. PSYCHIATRIC: Calm, unable to assess further. Results - Labs CBC & Chem 7: 03/13/18 06:46 03/13/18 06:46 Laboratory Results - last 24 hr 03/12/18 03/12/18 03/12/18 07:48 10:49 11:27 Potassium 4.4 D POC Glucose 276 H 234 H 03/12/18 03/12/18 17:19 21:40 Potassium POC Glucose 113 H 237 H - Imaging ITS Impressions Gastrostomy Tube Placement 02/27/18 00:00 CONCLUSION: 1. Uncomplicated gastrostomy tube placement as above. Tube position within the stomach was verified. Abdomen/Pelvis CT 03/01/18 00:00 CONCLUSION: 1. Benign appearing cyst in the pancreas. 2. No evidence of ileus. No evidence of free fluid. Chest X-Ray 03/11/18 00:00 CONCLUSION: Elevated left diaphragm of undetermined etiology. Slight parenchymal opacity at the left lung base. - Procedures PEG tube was placed on 02/27/2018. Assessment and Plan - Plan This is a 77-year-old male was brought in by his family because of altered mental status. Patient is nonverbal. Reportedly patient has been losing weight and not swallowing. Every time he is given food he would spit it out. End stage Dementia Hx of TIA, CVA, TBI. Does not follow any commands. - Per previous note, Discussed with Family and Hospice. Palliative care following. Patient's family at this point want full aggressive care. - High risk for aspiration. Patient to remain n.p.o. Continue on tube feedings. - Continue on Namenda and Aricept Cough CXR obtained revealing elevated left diaphragm of undetermined etiology. Slight parenchymal opacity at the left lung base - Patient appears to be breathing comfortably. O2 sats 97% on room air. He remains afebrile. White count remains normal. - Scheduled duo nebs - acapella - Continue to monitor respiratory status. Supplemental oxygen as needed Tachycardic, hypotensive Patient appears hypovolemic on exam EEG shows sinus tachycardia - Give another small IV fluid bolus - BP unable to tolerate increased Lopressor dose, dose decreased to 12.5mg BID with hold parameters - Monitor for improvement Acute encephalopathy toxic with persistent high grade fevers on admission, resolving, patient at his baseline SIRS/SEPSIS criteria on admission. persistent high grade fevers, tachycardia on admission , poss aspiration PNA and UTI. The patient was treated with IV abx zosyn and vanco Blood cx negative - ID consulted, abx DCd per ID No source of infection however was presumed aspiration pna and UTI on admission. U cx neg and CXR no infiltrates Discussed with Dr Ahuja ID. 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 - PEG tube placed on 02/27/2018. On Glucerna 1.5 with a goal 45cc/hour. Increase rate to 55cc/hr per wheel blocker orders. Hx of PE - Continue on Apixaban Diabetes, not well controlled - continue on accucheks and ISS - blood sugars running low 200s, Increase Levemir to 13u BID - continue to monitor BS and adjust treatment Hyperkalemic, resolved K 5.5 - Dose of Kayexalate given, f/u K 4.2 DVT prophylaxis - patient is on Apixaban Code Status: FULL Discussed Condition With: patient, nursing staff, Dr. Willingham Discharge Planning: Difficult placement, needs group home placement. CM assisting with ongoing discharge planning. Patient tentatively accepted at the [facility] pending financials.
[2018-03-13 07:44] LABS: Baso # (Auto) 0.1 th/mm3 (0.0-0.2); Baso % (Auto) 0.8 % (0.0-2.0); Eos # (Auto) 0.2 th/mm3 (0.0-0.4); Eos % (Auto) 2.5 % (0.0-4.0); Hematocrit 34.6 % (39.0-51.0); Hemoglobin 11.4 gm/dL (13.0-17.0); Lymph # (Auto) 1.5 th/mm3 (1.0-4.8); Mean Corpuscular Volume 81.8 fL (80.0-100.0); Mean Platelet Volume 7.1 fL (7.0-11.0); Mono # (Auto) 0.7 th/mm3 (0.0-0.9); Mono % (Auto) 7.7 % (0.0-8.0); Neut # (Auto) 6.4 th/mm3 (1.8-7.7); Platelet Count 673 th/mm3 (150-450); Red Blood Count 4.23 mil/mm3 (4.50-5.90); Red Cell Distribution Width 15.7 % (11.6-17.2); White Blood Count 8.8 th/mm3 (4.0-11.0)
[2018-03-13 08:05] LABS: Anion Gap 8 meq/L (5-15); Blood Urea Nitrogen 17 mg/dL (7-18); Calcium 8.5 mg/dL (8.5-10.1); Chloride 100 meq/L (98-107); Glomerular Filtration Rate Greater Than 89 mL/min (>89); Glucose,Random 177 mg/dL (74-106); Potassium 4.2 meq/L (3.5-5.1); Sodium 139 meq/L (136-145)
[2018-03-13] MEDS ORDERED: Sodium Chlor 0.9% Inj 250 ML IV.SIG ONE (08:45)
[2018-03-13] MEDS: Insulin Detemir Inj 1,000 UNIT/10 ML Vial SQ SCH ×2 (09:23→22:28)
[2018-03-13] MEDS: Insulin NovoLOG Aspart Correctional Sugar Inj SQ SCH ×4 (09:25→22:28)
[2018-03-13] MEDS: Metoprolol Tartrate 25 MG Tablet G-TUBE SCH ×3 (09:30→22:09)
[2018-03-13] MEDS: Collagenase Oint 30 GM Tube TOPICAL SCH (09:31)
--- NOTE | 2018-03-14 07:23 | P.PN ---
Subjective Interval history: Follow up for dementia, Dysphagia, hx of PE and possible aspiration pneumonia. Patient seen and examined. Patient is stable. He appears comfortable. No significant change. Family has decided to go home with [facility]. Physical Exam Vital signs: Vital Signs 03/13/18 08:00 03/13/18 08:08 03/13/18 08:26 Temperature 99.1 F Pulse Rate 106 H 103 H Respiratory Rate 18 16 16 Blood Pressure 107/65 Pulse Oximetry 97 03/13/18 12:00 03/13/18 13:14 03/13/18 16:00 Temperature 98.7 F 98.6 F Pulse Rate 107 H 110 H 106 H Respiratory Rate 18 16 18 Blood Pressure 102/65 100/64 Pulse Oximetry 99 94 L 03/13/18 19:36 03/13/18 20:00 03/14/18 00:00 Temperature 98.5 F 98.1 F Pulse Rate 84 105 H 111 H Respiratory Rate 18 20 18 Blood Pressure 103/58 L 113/68 Pulse Oximetry 98 98 03/14/18 04:00 Temperature 98.1 F Pulse Rate 100 H Respiratory Rate 18 Blood Pressure 98/59 L Pulse Oximetry 98 Intake & Output 03/13/18 03/14/18 03/14/18 18:59 06:59 18:59 Intake Total 2974 / 2974 1140 / 1140 Balance 2974 / 2974 1140 / 1140 Intake: IV 250 / 250 NS Inj 250 ML @ Wide Open IV. 250 / 250 SIG BOLUS ONE Rx#:[id number] Tube Feeding 2424 / 2424 660 / 660 Water Bolus Amount 300 / 300 480 / 480 Other: # Voids 2 # Incontinent Voids 1 2 Narrative: GENERAL: Thin chronically ill appearing elderly male. Awake lying in bed. Not in any distress. Appears comfortable. Does not follow commands. Nonverbal. SKIN: Warm and dry. HEENT: NC/AT. PERRLA. Sclera anicteric. No nasal drainage. Dry mucus membranes. CARDIOVASCULAR: Tachycardic without murmurs, gallops, or rubs. RESPIRATORY: Breath sounds equal bilaterally. No accessory muscle use. Poor effort. GASTROINTESTINAL: Abdomen soft, non-tender, nondistended. +BS. PEG site C/D/I. MUSCULOSKELETAL: No cyanosis, or edema. NEUROLOGICAL: Awake. No obvious cranial nerve deficits. Does not follow commands. Nonverbal. PSYCHIATRIC: Calm, unable to assess further. Results - Labs CBC & Chem 7: 03/13/18 06:46 03/13/18 06:46 Laboratory Results - last 24 hr 03/13/18 03/13/18 03/13/18 06:46 06:46 11:01 WBC 8.8 RBC 4.23 L Hgb 11.4 L Hct 34.6 L MCV 81.8 MCH 27.0 MCHC 33.0 RDW 15.7 Plt Count 673 H MPV 7.1 Neut % (Auto) 72.0 H Lymph % (Auto) 17.0 [place] % (Auto) 7.7 Eos % (Auto) 2.5 Baso % (Auto) 0.8 Neut # (Auto) 6.4 Lymph # (Auto) 1.5 [place] # (Auto) 0.7 Eos # (Auto) 0.2 Baso # (Auto) 0.1 WBC Differential . Differential Comment Auto diff final Sodium 139 Potassium 4.2 Chloride 100 Carbon Dioxide 31.0 Anion Gap 8 BUN 17 Creatinine 0.83 Estimated GFR Greater than 89 POC Glucose 211 H Random Glucose 177 H Calcium 8.5 03/13/18 03/13/18 17:22 22:14 WBC RBC Hgb Hct MCV MCH MCHC RDW Plt Count MPV Neut % (Auto) Lymph % (Auto) [place] % (Auto) Eos % (Auto) Baso % (Auto) Neut # (Auto) Lymph # (Auto) [place] # (Auto) Eos # (Auto) Baso # (Auto) WBC Differential Differential Comment Sodium Potassium Chloride Carbon Dioxide Anion Gap BUN Creatinine Estimated GFR POC Glucose 159 H 210 H Random Glucose Calcium - Procedures PEG tube was placed on 02/27/2018. Assessment and Plan - Plan This is a 77-year-old male was brought in by his family because of altered mental status. Patient is nonverbal. Reportedly patient has been losing weight and not swallowing. Every time he is given food he would spit it out. End stage Dementia Hx of TIA, CVA, TBI. Does not follow any commands. - Per previous note, Hospice discussed with family. Palliative care following. Patient's family at this point want full aggressive care. Family has decided on taking patient home with [facility]. - High risk for aspiration. Patient to remain n.p.o. Continue on tube feedings. - Continue on Namenda and Aricept Cough, resolved CXR obtained revealing elevated left diaphragm of undetermined etiology. Slight parenchymal opacity at the left lung base - Patient appears to be breathing comfortably. O2 sats 98% on room air. He remains afebrile. White count normal. - Scheduled duo nebs - acapella - Continue to monitor respiratory status. Supplemental oxygen as needed Tachycardic, hypotensive EEG shows sinus tachycardia BP improved - Continue on Lopressor 12.5mg BID with hold parameters - Monitor for improvement Acute encephalopathy toxic with persistent high grade fevers on admission, patient now at his baseline SIRS/SEPSIS criteria on admission. persistent high grade fevers, tachycardia on admission , poss aspiration PNA and UTI. The patient was treated with IV abx zosyn and vanco Blood cx negative - ID consulted, abx DCd per ID No source of infection however was presumed aspiration pna and UTI on admission. U cx neg and CXR no infiltrates Discussed with Dr Danielle ID. 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 - PEG tube placed on 02/27/2018. On Glucerna 1.5 with a goal 55cc/hour. Hx of PE - Continue on Apixaban Diabetes, not well controlled - continue on accucheks and ISS - blood sugars running low 200. Increase Levemir to 15u BID - continue to monitor BS and adjust treatment Hyperkalemic, resolved K 5.5 - Dose of Kayexalate given, f/u K 4.2 DVT prophylaxis - patient is on Apixaban Code Status: FULL Discussed Condition With: patient, nursing staff, ALFRED, Dr. Willingham Discharge Planning: Family has decided on taking patient home with [facility]. Face to face completed. CM assisting with ongoing discharge planning.
[2018-03-14] MEDS: Metoprolol Tartrate 25 MG Tablet G-TUBE SCH ×2 (09:31→22:45)
[2018-03-14] MEDS: Collagenase Oint 30 GM Tube TOPICAL SCH (09:32)
[2018-03-14] MEDS: Insulin Detemir Inj 1,000 UNIT/10 ML Vial SQ SCH ×2 (09:32→22:45)
[2018-03-14] MEDS: Insulin NovoLOG Aspart Correctional Sugar Inj SQ SCH ×4 (09:32→22:45)
--- NOTE | 2018-03-14 14:30 | P.DCO ---
- Physical Therapy Order: Evaluate and treat, Improve ambulation, Strength and gait training - Occupational Therapy Order: Evaluate and treat, Improve ADL, Gross motor coordination, Fine motor coordination - Speech Therapy Order: To improve: Speech and communication skills, Cognitive skills, Swallowing - Home Health Nursing Order: Medical education, Signs/symptoms of disease process, Medication education-adverse effect, Wound care and dressing changes, Nursing assessment with vital signs - Certification I have seen patient Rene Kurtz on 03/14/18. My clinical findings support the need for the requested home health care services because: Limited mobility due to disease progression, Deconditioned with increased weakness, Medication compliance is questionable, Limited ability to care for self, Impaired cognition/judgement, High risk of falls I certify that my clinical findings support that this patient is homebound because: Impaired cognitive ability/safety, Unsteady gait/balance, Unsafe to leave home unassisted, Non-ambulatory: confined to bed or chair, Unable to use public transportation
--- NOTE | 2018-03-15 07:24 | P.PN ---
Subjective Interval history: Follow up for dementia, Dysphagia, hx of PE and possible aspiration pneumonia. Patient seen and examined. DW nursing staff, no acute events overnight. Patient is stable. Plan to discharge to home with [facility] per family's request. Physical Exam Vital signs: Vital Signs 03/14/18 08:00 03/14/18 09:28 03/14/18 12:00 Temperature 98.8 F 98.6 F Pulse Rate 84 93 H 99 H Respiratory Rate 16 12 16 Blood Pressure 109/61 104/70 Pulse Oximetry 98 98 03/14/18 13:32 03/14/18 16:00 03/14/18 20:00 Temperature 98.1 F 97.8 F Pulse Rate 97 H 110 H 113 H Respiratory Rate 12 16 17 Blood Pressure 109/67 96/65 L Pulse Oximetry 98 98 03/14/18 20:33 03/15/18 00:00 03/15/18 04:00 Temperature 98 F 98 F Pulse Rate 103 H 102 H 105 H Respiratory Rate 18 18 17 Blood Pressure 101/68 94/64 L Pulse Oximetry 98 97 03/15/18 07:00 Temperature Pulse Rate 108 H Respiratory Rate 16 Blood Pressure Pulse Oximetry Intake & Output 03/14/18 03/15/18 03/15/18 18:59 06:59 18:59 Intake Total 1369 / 1369 Balance 1369 / 1369 Intake: Tube Feeding 869 / 869 Water Bolus Amount 500 / 500 Other: # Incontinent Voids 2 Date of Last Bowel Movement 03/14/18 Narrative: GENERAL: Thin chronically ill appearing elderly male, INAD. Awake lying in bed. Appears comfortable. Does not follow commands. Nonverbal. SKIN: Warm and dry. HEENT: NC/AT. PERRLA. Sclera anicteric. No nasal drainage. Dry mucus membranes. CARDIOVASCULAR: Tachycardic without murmurs, gallops, or rubs. RESPIRATORY: Breath sounds equal bilaterally. No accessory muscle use. Poor effort. Diminished bilateral bases. GASTROINTESTINAL: Abdomen soft, non-tender, nondistended. +BS. PEG site C/D/I. MUSCULOSKELETAL: No cyanosis, or edema. NEUROLOGICAL: Awake. No obvious cranial nerve deficits. Does not follow commands. Nonverbal. PSYCHIATRIC: Calm, unable to assess further. Results - Labs CBC & Chem 7: 03/13/18 06:46 03/15/18 08:35 Laboratory Results - last 24 hr 03/14/18 03/14/18 03/14/18 07:52 12:05 17:37 POC Glucose 136 H 209 H 128 H 03/14/18 03/15/18 20:11 04:46 POC Glucose 161 H 260 H - Procedures PEG tube was placed on 02/27/2018. Assessment and Plan - Plan This is a 77-year-old male was brought in by his family because of altered mental status. Patient is nonverbal. Reportedly patient has been losing weight and not swallowing. Every time he is given food he would spit it out. 03/15 No significant change. Patient is stable. No acute events/issues per nursing staff. Plan for discharge home today with [facility] per familys request End stage Dementia Hx of TIA, CVA, TBI. Does not follow any commands. - Per previous note, Hospice discussed with family. Palliative care following. Patient's family at this point want full aggressive care. Family has decided on taking patient home with [facility]. - High risk for aspiration. Patient to remain n.p.o. Continue on tube feedings. - Continue on Namenda and Aricept Cough, resolved CXR obtained revealing elevated left diaphragm of undetermined etiology. Slight parenchymal opacity at the left lung base - Patient appears to be breathing comfortably. O2 sats 98% on room air. He remains afebrile. White count normal. - Scheduled duo nebs - acapella - Continue to monitor respiratory status. Supplemental oxygen as needed Tachycardic, hypotensive EEG shows sinus tachycardia BP improved - Continue on Lopressor 12.5mg BID with hold parameters - Monitor for improvement Acute encephalopathy toxic with persistent high grade fevers on admission, patient now at his baseline SIRS/SEPSIS criteria on admission. persistent high grade fevers, tachycardia on admission , poss aspiration PNA and UTI. The patient was treated with IV abx zosyn and vanco Blood cx negative - ID consulted, abx DCd per ID No source of infection however was presumed aspiration pna and UTI on admission. U cx neg and CXR no infiltrates Discussed with Dr Danielle ID. 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 - PEG tube placed on 02/27/2018. On Glucerna 1.5 with a goal 55cc/hour. Hx of PE - Continue on Apixaban Diabetes, not well controlled - continue on accucheks and ISS - blood sugars 260 this am. Increase Levemir to 18u BID - continue to monitor BS and adjust treatment Hyperkalemic, resolved K 5.5 - Dose of Kayexalate given, f/u K 4.2 DVT prophylaxis - patient is on Apixaban Code Status: FULL Discussed Condition With: patient, nursing staff, Dr. Willingham Discharge Planning: Family has decided on taking patient home with [facility]. Face to face completed. CM assisting with ongoing discharge planning.
[2018-03-15] MEDS: Metoprolol Tartrate 25 MG Tablet G-TUBE SCH ×2 (08:17→21:20)
[2018-03-15] MEDS: Insulin Detemir Inj 1,000 UNIT/10 ML Vial SQ SCH (08:18)
[2018-03-15] MEDS: Insulin NovoLOG Aspart Correctional Sugar Inj SQ SCH ×4 (08:27→21:25)
[2018-03-15 10:02] LABS: Glomerular Filtration Rate Greater Than 89 mL/min (>89)
[2018-03-15] MEDS ORDERED: Insulin Detemir Inj 1,000 UNIT/10 ML Vial SQ SCH (11:17)
[2018-03-15] MEDS: Collagenase Oint 30 GM Tube TOPICAL SCH (16:49)
[2018-03-16] MEDS: Insulin NovoLOG Aspart Correctional Sugar Inj SQ SCH ×3 (08:44→17:50)
[2018-03-16] MEDS: Metoprolol Tartrate 25 MG Tablet G-TUBE SCH (08:45)
[2018-03-16] MEDS: Collagenase Oint 30 GM Tube TOPICAL SCH (09:02)
[2018-03-16] MEDS ORDERED: Insulin Detemir Inj 1,000 UNIT/10 ML Vial SQ SCH (11:19)
--- NOTE | 2018-03-16 11:22 | P.PN ---
Subjective Interval history: Follow up for dementia, Dysphagia, hx of PE and possible aspiration pneumonia. Patient seen and examined. Patient is stable. Blood sugars have been running in the mid 100s to low 200s. DW nursing staff, no acute events overnight. Physical Exam Vital signs: Vital Signs 03/15/18 11:33 03/15/18 12:00 03/15/18 16:00 Temperature 99 F 98.3 F Pulse Rate 124 H 109 H 108 H Respiratory Rate 16 20 20 Blood Pressure 101/64 104/65 Pulse Oximetry 95 99 03/15/18 19:22 03/15/18 20:00 03/16/18 00:00 Temperature 98.7 F 99.3 F Pulse Rate 101 H 111 H 114 H Respiratory Rate 18 18 Blood Pressure 100/63 107/68 Pulse Oximetry 96 95 03/16/18 04:00 03/16/18 08:00 Temperature 98.0 F 98.7 F Pulse Rate 115 H 69 Respiratory Rate 18 20 Blood Pressure 117/67 111/61 Pulse Oximetry 97 96 Intake & Output 03/15/18 03/16/18 03/16/18 18:59 06:59 18:59 Intake Total 1132 / 1132 Balance 1132 / 1132 Weight 55.6 kg Intake: Tube Feeding 632 / 632 Water Bolus Amount 500 / 500 Other: # Incontinent Voids 0 Date of Last Bowel Movement 03/14/18 03/15/18 03/16/18 # Bowel Movements 1 # Incontinent Bowel Movements 1 Narrative: GENERAL: Thin chronically ill appearing elderly male, INAD. No change in mentation. Awake lying in bed. Appears comfortable. Does not follow commands. Nonverbal. SKIN: Warm and dry. HEENT: NC/AT. PERRLA. Sclera anicteric. No nasal drainage. Dry mucus membranes. CARDIOVASCULAR: Tachycardic without murmurs, gallops, or rubs. RESPIRATORY: Breath sounds equal bilaterally. No accessory muscle use. Poor effort. Diminished bilateral bases. GASTROINTESTINAL: Abdomen soft, non-tender, nondistended. +BS. PEG site C/D/I. MUSCULOSKELETAL: No cyanosis, or edema. NEUROLOGICAL: Awake. No obvious cranial nerve deficits. Does not follow commands. Nonverbal. PSYCHIATRIC: Calm, unable to assess further. Results - Labs CBC & Chem 7: 03/13/18 06:46 03/15/18 08:35 Laboratory Results - last 24 hr 03/15/18 03/15/18 03/15/18 12:18 12:50 13:16 POC Glucose 58 L 88 148 H 03/15/18 03/15/18 03/16/18 16:40 21:19 03:31 POC Glucose 143 H 217 H 164 H 03/16/18 07:42 POC Glucose 239 H - Procedures PEG tube was placed on 02/27/2018. Assessment and Plan - Plan This is a 77-year-old male was brought in by his family because of altered mental status. Patient is nonverbal. Reportedly patient has been losing weight and not swallowing. Every time he is given food he would spit it out. 03/16 Patients discharge cancelled yesterday when BS dropped to 58. BS has been stable while holding long acting Levemir, last BS reading elevated at 239. Patient is stable. No acute events noted by RN. Patient is stable for discharge home with [facility] today. End stage Dementia Hx of TIA, CVA, TBI. Does not follow any commands. - Per previous note, Hospice discussed with family. Palliative care following. Patient's family at this point want full aggressive care. Family has decided on taking patient home with [facility]. - High risk for aspiration. Patient to remain n.p.o. Continue on tube feedings. - Continue on Namenda and Aricept Cough, resolved CXR obtained revealing elevated left diaphragm of undetermined etiology. Slight parenchymal opacity at the left lung base - Patient appears to be breathing comfortably. O2 sats 98% on room air. He remains afebrile. White count normal. - Scheduled duo nebs - acapella - Continue to monitor respiratory status. Supplemental oxygen as needed Tachycardic, hypotensive EEG shows sinus tachycardia BP improved - Continue on Lopressor 12.5mg BID with hold parameters - Monitor for improvement Acute encephalopathy toxic with persistent high grade fevers on admission, patient now at his baseline SIRS/SEPSIS criteria on admission. persistent high grade fevers, tachycardia on admission , poss aspiration PNA and UTI. The patient was treated with IV abx zosyn and vanco Blood cx negative - ID consulted, abx DCd per ID No source of infection however was presumed aspiration pna and UTI on admission. U cx neg and CXR no infiltrates Discussed with Dr Danielle ID. 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 - PEG tube placed on 02/27/2018. On Glucerna 1.5 with a goal 55cc/hour. Tolerating TF well. Hx of PE - Continue on Apixaban Diabetes, not well controlled - continue on accucheks and ISS - 03/15 episode of hypoglycemia. BS now running in 200s. Will continue to hold Levemir and when indicated will resume at lower dose. - continue to monitor BS and adjust treatment Hyperkalemic, resolved K 5.5 - Dose of Kayexalate given, f/u K 4.2 DVT prophylaxis - patient is on Apixaban Code Status: FULL Discussed Condition With: patient, nursing staff, Dr. Willingham Discharge Planning: Ready for discharge to home with [facility] per the family"s wishes today. CM assisting with discharge.
--- NOTE | 2018-03-16 13:13 | XR ---
EXAM DATE: 03/16/2018 1:07 PM EDT AGE/SEX: 77 years / Male INDICATIONS: Cough and shortness of breath. CLINICAL DATA: This is the patient's subsequent encounter. Patient reports that signs and symptoms h ave been present for 2 days and indicates a pain score of 0/10. MEDICAL/SURGICAL HISTORY: Cerebrovascular disease. Cardiovascular disease. Hypertension. Ashley betes. None. COMPARISON: [facility], CHEST 1V SINGLE AP, 03/11/2018. [facility], CHEST 1V SINGLE AP, 02/28/2018. [facility], CHEST SINGLE AP, 11/07/2017. . FINDINGS: Underinflated AP view of the chest demonstrates a normal size cardiac silhouette. There is stable fe vation left hemidiaphragm with atelectasis at the left lung base. No pleural effusion, airspace conso lidation, or pneumothorax is identified. Bones demonstrate no acute finding. CONCLUSION: Chronic elevation of the left hemidiaphragm with atelectasis at the left lung base. Otherwise, no acu te cardiopulmonary abnormality is identified. Electronically signed by: Baldev Christensen MD 03/16/2018 1:12 PM EDT
[2018-03-16 13:25] LABS: Baso # (Auto) 0.1 th/mm3 (0.0-0.2); Baso % (Auto) 0.6 % (0.0-2.0); Eos # (Auto) 0.2 th/mm3 (0.0-0.4); Eos % (Auto) 2.1 % (0.0-4.0); Hemoglobin 11.3 gm/dL (13.0-17.0); Lymph # (Auto) 1.5 th/mm3 (1.0-4.8); Lymph % (Auto) 12.4 % (9.0-44.0); Mean Corpuscular HGB Conc 32.2 % (32.0-36.0); Mean Corpuscular Hemoglobin 26.8 pg (27.0-34.0); Mean Corpuscular Volume 83.2 fL (80.0-100.0); Mean Platelet Volume 7.3 fL (7.0-11.0); Mono # (Auto) 0.9 th/mm3 (0.0-0.9); Neut % (Auto) 76.9 % (16.0-70.0); Platelet Count 568 th/mm3 (150-450); Red Blood Count 4.21 mil/mm3 (4.50-5.90); Red Cell Distribution Width 16.8 % (11.6-17.2); White Blood Count 11.7 th/mm3 (4.0-11.0)
[2018-03-16 13:48] LABS: Alanine Aminotransferase 27 U/L (12-78); Albumin 2.3 g/dL (3.4-5.0); Anion Gap 8 meq/L (5-15); Aspartate Aminotransferase 28 U/L (15-37); Blood Urea Nitrogen 18 mg/dL (7-18); Calcium 8.3 mg/dL (8.5-10.1); Carbon Dioxide 29.5 meq/L (21.0-32.0); Chloride 98 meq/L (98-107); Glomerular Filtration Rate Greater Than 89 mL/min (>89); Glucose,Random 156 mg/dL (74-106); Potassium 4.4 meq/L (3.5-5.1); Sodium 135 meq/L (136-145)
[2018-03-16 13:50] LABS: Alkaline Phosphatase 102 U/L (45-117); Total Protein 7.7 g/dL (6.4-8.2)
--- NOTE | 2018-03-16 14:07 | P.DS ---
Date of admission: 02/28/18 11:34 Primary care physician: Manjit Jiménez MD Attending physician on discharge: Mckayla Willingham Anticipated date of discharge: 03/16/18 Brief History from admission: This is a 77-year-old male was brought in by his family because of altered mental status. Patient is nonverbal so history is mainly taken from chart review. Reportedly patient has been losing weight and not swallowing. Every time he is given food he would spit it out. He has history of dementia and has been bedbound with bedsores involving the sacrum and left foot, PE diagnosed in October on Eliquis, TIA/CVA, TBI with subdural hematoma, seizure disorder, hypertension, coronary artery disease, diabetes mellitus, anemia, acute kidney injury, diabetes mellitus, hyperlipidemia and GERD. He was scheduled to meet hospice outpatient and family has requested hospice consult in the hospital. In the emergency department, he was found to be dehydrated with hypotension and tachycardia and has been started on IV hydration. He also was leukocytosis with negative chest x-ray. Urinalysis has been ordered. At this time he is easily awakened follows commands intermittently but does not answer questions. Family is not at bedside. All other systems reviewed negative DS: Diagnosis - Discharge Diagnosis (1) Sepsis Status: Acute (2) Altered mental status Status: Acute (3) At risk for aspiration Status: Acute (4) Malnutrition Status: Acute (5) PEG (percutaneous endoscopic gastrostomy) status Status: Acute (6) Dysphagia Status: Acute (7) Bedbound Status: Acute (8) Generalized weakness Status: Acute (9) Diabetes Status: Acute (10) Dementia Status: Acute (11) Impaired activities of daily living Status: Acute DS: Medications - Discharge Medications Prescriptions: collagenase clostridium histo. [Santyl] 1 applicatio TOPICAL DAILY #1 tube lansoprazole [Prevacid SoluTab] 30 mg NG/OG DAILY #30 tab DS: Summary Hospital Course: This is a 77-year-old male was brought in by his family because of altered mental status. Patient is nonverbal. Reportedly patient has been losing weight and not swallowing. Every time he is given food he would spit it out. 03/16 Patients discharge cancelled yesterday when BS dropped to 58. BS has been stable while holding long acting Levemir, last BS reading elevated at 239. Patient is stable. No acute events noted by RN. Patient is stable for discharge home with [facility] today. Acute encephalopathy toxic with persistent high grade fevers on admission, patient now at his baseline SIRS/SEPSIS criteria on admission. persistent high grade fevers, tachycardia on admission , poss aspiration PNA and UTI. The patient was treated with IV abx zosyn and vanco Blood cx negative - ID consulted, abx DCd per ID No source of infection however was presumed aspiration pna and UTI on admission. U cx neg and CXR no infiltrates Discussed with Dr Danielle ID. 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 - PEG tube placed on 02/27/2018. On Glucerna 1.5 with a goal 55cc/hour. Tolerating TF well. End stage Dementia Hx of TIA, CVA, TBI. Does not follow any commands. - Per previous note, Hospice discussed with family. Palliative care following. Patient's family at this point want full aggressive care. Family has decided on taking patient home with [facility]. - High risk for aspiration. Patient to remain n.p.o. Continue on tube feedings. - Continue on Namenda and Aricept Cough, resolved CXR obtained revealing elevated left diaphragm of undetermined etiology. Slight parenchymal opacity at the left lung base - Patient appears to be breathing comfortably. O2 sats 98% on room air. He remains afebrile. White count normal. - Scheduled duo nebs - acapella - Continue to monitor respiratory status. Supplemental oxygen as needed Tachycardic, hypotensive EEG shows sinus tachycardia BP improved - Continue on Lopressor 12.5mg BID with hold parameters - Monitor for improvement Hx of PE - Continue on Apixaban Diabetes, not well controlled - continue on accucheks and ISS - 03/15 episode of hypoglycemia. BS now running in 200s. Will continue to hold Levemir and when indicated will resume at lower dose. - continue to monitor BS and adjust treatment Hyperkalemic, resolved K 5.5 - Dose of Kayexalate given, f/u K 4.2 DVT prophylaxis - patient is on Apixaban - Time Spent with Patient Total time spent providing and/or coordinating discharge services: Greater than 30 minutes - Quality: VTE Deep Vein Thrombosis/Pulmonary Embolism Present on Admission: Yes Exam Vital signs: Vital Signs 03/15/18 16:00 03/15/18 19:22 03/15/18 20:00 Temperature 98.3 F 98.7 F Pulse Rate 108 H 101 H 111 H Respiratory Rate 20 18 Blood Pressure 104/65 100/63 Pulse Oximetry 99 96 03/16/18 00:00 03/16/18 04:00 03/16/18 08:00 Temperature 99.3 F 98.0 F 98.7 F Pulse Rate 114 H 115 H 69 Respiratory Rate 18 18 20 Blood Pressure 107/68 117/67 111/61 Pulse Oximetry 95 97 96 03/16/18 12:00 Temperature 98.7 F Pulse Rate 111 H Respiratory Rate 20 Blood Pressure 106/69 Pulse Oximetry 96 Intake & Output 03/15/18 03/16/18 03/16/18 18:59 06:59 18:59 Intake Total 1132 / 1132 Balance 1132 / 1132 Weight 55.6 kg Intake: Tube Feeding 632 / 632 Water Bolus Amount 500 / 500 Other: # Incontinent Voids 0 Date of Last Bowel Movement 03/14/18 03/15/18 03/16/18 # Bowel Movements 1 # Incontinent Bowel Movements 1 Narrative: GENERAL: Thin chronically ill appearing elderly male, INAD. No change in mentation. Awake lying in bed. Appears comfortable. Does not follow commands. Nonverbal. SKIN: Warm and dry. HEENT: NC/AT. PERRLA. Sclera anicteric. No nasal drainage. Dry mucus membranes. CARDIOVASCULAR: Tachycardic without murmurs, gallops, or rubs. RESPIRATORY: Breath sounds equal bilaterally. No accessory muscle use. Poor effort. Diminished bilateral bases. GASTROINTESTINAL: Abdomen soft, non-tender, nondistended. +BS. PEG site C/D/I. MUSCULOSKELETAL: No cyanosis, or edema. NEUROLOGICAL: Awake. No obvious cranial nerve deficits. Does not follow commands. Nonverbal. PSYCHIATRIC: Calm, unable to assess further. Results Procedures completed during hospitalization: PEG tube was placed on 02/27/2018. Labs on day of discharge: Labs from last 24 hours 03/16/18 03/16/18 03/16/18 12:56 12:56 12:55 WBC 11.7 H RBC 4.21 L Hgb 11.3 L Hct 35.0 L MCV 83.2 MCH 26.8 L MCHC 32.2 RDW 16.8 Plt Count 568 H MPV 7.3 Neut % (Auto) 76.9 H Lymph % (Auto) 12.4 [place] % (Auto) 8.0 Eos % (Auto) 2.1 Baso % (Auto) 0.6 Neut # (Auto) 9.0 H Lymph # (Auto) 1.5 [place] # (Auto) 0.9 Eos # (Auto) 0.2 Baso # (Auto) 0.1 WBC Differential . Differential Comment Auto diff final Sodium 135 L Potassium 4.4 Chloride 98 Carbon Dioxide 29.5 Anion Gap 8 BUN 18 Creatinine 0.76 Estimated GFR Greater than 89 POC Glucose 174 H Random Glucose 156 H Calcium 8.3 L Total Bilirubin 0.3 AST 28 ALT 27 Alkaline Phosphatase 102 Total Protein 7.7 D Albumin 2.3 L 03/16/18 03/16/18 03/15/18 07:42 03:31 21:19 WBC RBC Hgb Hct MCV MCH MCHC RDW Plt Count MPV Neut % (Auto) Lymph % (Auto) [place] % (Auto) Eos % (Auto) Baso % (Auto) Neut # (Auto) Lymph # (Auto) [place] # (Auto) Eos # (Auto) Baso # (Auto) WBC Differential Differential Comment Sodium Potassium Chloride Carbon Dioxide Anion Gap BUN Creatinine Estimated GFR POC Glucose 239 H 164 H 217 H Random Glucose Calcium Total Bilirubin AST ALT Alkaline Phosphatase Total Protein Albumin 03/15/18 16:40 WBC RBC Hgb Hct MCV MCH MCHC RDW Plt Count MPV Neut % (Auto) Lymph % (Auto) [place] % (Auto) Eos % (Auto) Baso % (Auto) Neut # (Auto) Lymph # (Auto) [place] # (Auto) Eos # (Auto) Baso # (Auto) WBC Differential Differential Comment Sodium Potassium Chloride Carbon Dioxide Anion Gap BUN Creatinine Estimated GFR POC Glucose 143 H Random Glucose Calcium Total Bilirubin AST ALT Alkaline Phosphatase Total Protein Albumin - Impressions ITS Impressions Gastrostomy Tube Placement 02/27/18 00:00 CONCLUSION: 1. Uncomplicated gastrostomy tube placement as above. Tube position within the stomach was verified. Abdomen/Pelvis CT 03/01/18 00:00 CONCLUSION: 1. Benign appearing cyst in the pancreas. 2. No evidence of ileus. No evidence of free fluid. Chest X-Ray 03/16/18 00:00 CONCLUSION: Chronic elevation of the left hemidiaphragm with atelectasis at the left lung base. Otherwise, no acute cardiopulmonary abnormality is identified. Discharge Plan - Discharge Disposition Patient Disposition: /Home Health Service - Discharge Condition Condition: Stable - Discharge Order Discharge Orders: Discharge Order (Routine); Ordered 03/16/18 Ordered By: Eveline Cruz - Discharge Details Anticipated Discharge Date: 03/15/18 - Physicians Team Primary Care Provider: Manjit Jiménez Attending Provider: Mckayla Willingham Other Providers: Kimberli Ag ; Cassidy Danielle MD ; Geoffrey Guerra MD ; [facility] ; [facility] ; [facility], Agency ; [facility],[place]
== END 2018-03-16 18:35 | disposition home health service (06) ==
LOC: NEDA 02:28 → NEPC 02:28 → NEDA 06:56 → NEPFCDU 07:00 → N05 02-28 17:21
PROVIDERS: ADMIT Family Medicine; ATTEND Family Medicine